=== PATIENT | female | born 1935 | race American Indian/Alaskan Native ===

== ENCOUNTER 2021-01-24 17:33 | Inpatient (IN) ==
--- NOTE | 2021-01-24 18:29 | Emergency Department Note ---
History of Present Illness General Chief complaint: Weakness Stated complaint: ILLNESS, WEAKNESS, HYPOTENSION Time Seen by Provider: 01/24/21 17:57 Source: patient Mode of arrival: EMS Limitations: no limitations History of Present Illness Provider complaint: weakness Onset (ago): day(s) 2 Treatments prior to arrival: none This is an 86-year-old female who presents with family bedside due to concern for increased weakness and poor p.o. intake. She states she began feeling bad yesterday. Daughter states she did come down to the patient's residence and the patient was able to eat and drink some and take her usual medications. She states today she felt worse and contacted her daughter. Daughter states by the time she came to the residence, her mother. Worse than typical. She states she does have intermittent days of weakness. 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 She denies any known sick contacts. She and daughter deny any fevers or chills. She denies any chest pain, cough, trouble breathing, abdominal pain, vomiting or diarrhea. Patient states she has been nauseated and that has contributed to her poor p.o. intake. Patient was given 500 mL of IV fluids by EMS in route. Pt seen during a time of high acuity and national emergency pandemic while wearing PPE. Home Medications Medication Instructions Recorded Confirmed Type dorzolamide 2 %-timolol 0.5 % (PF) 1 drp OPHTHALMIC (EYE) QAM 05/24/19 01/24/21 History eye drops doxepin 10 mg capsule 20 - 30 mg PO HS 05/24/19 01/24/21 History levothyroxine 75 mcg tablet 75 mcg PO DAILYBB 05/24/19 01/24/21 History mycophenolate mofetil 500 mg tablet 500 mg PO BID 10/29/20 01/24/21 History omeprazole 20 mg capsule,delayed 20 mg PO DAILYBB 10/29/20 01/24/21 History release prednisone 10 mg tablet 10 mg PO QDB 01/24/21 01/24/21 History Allergies Allergy/AdvReac Type Severity Reaction Status Date / Time naproxen Allergy Mild RASH Verified 01/24/21 18:21 niacin Allergy Mild RASH Verified 01/24/21 18:21 Past Med/Surg History Medical History Cancer OVARIAN 10 YRS AGO-s/p CHEMO Cardiac murmur HX IN HER 20'S Essential thrombocythemia Glaucoma Hiatal hernia Hyperlipidemia Diet controlled Hyperparathyroidism 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 Zhou in [place] (oncologist) Surgical History History of bowel resection FOR PERFORATION WITH COLOSTOMY History of cholecystectomy History of colonoscopy History of colostomy reversal History of hysterectomy TOTAL History of lithotripsy Hx of bilateral cataract extraction Hx of cystoscopy Previous back surgery LOWER BACK-NO METAL IMPLANTED S/P debridement OF STOMA SITE S/P thyroidectomy FOR GOITER Family History Father CHF (congestive heart failure) Mother Hypertension Social History Smoking Status: Never smoker Second Hand Exposure: Yes (PARENTS AND SMOKES); Hx Alcohol Use: No Hx Substance Use: No Preferred Language: Kazakh Communication Ability: Effective Commissary Officer Required: No Beliefs That Will Affect Care: None Current Living Situation: Alone Current Living Situation Comment: LIVES WITH DAUGHTER How many Children do You have: 2 Other Information That Helps Us Care for You: No Feels Safe at Home: Yes Safety Concerns: Feels Safe At This Time Assistive Devices: None Review of Systems A total of 10 systems reviewed and were otherwise negative All systems reviewed & are unremarkable except as noted in HPI & below Physical Exam Vital Signs Vital Signs - 24 hr 01/24/21 18:06 01/24/21 18:08 01/24/21 18:30 Temperature 38.2 C H Temperature Source Oral Pulse Rate 101 H 98 H 99 H Pulse Rate from SpO2 Sensor 99 H 99 H Respiratory Rate 30 H 28 H 30 H Respiratory Effort / Characteristics Non-Labored Spontaneous Blood Pressure 96/37 L 96/37 L 89/40 L Blood Pressure Mean 56 56 56 Pulse Oximetry 93 92 91 Oxygen Delivery Method Room Air Sepsis Recent Fever Within 48 Hours Yes Sepsis New/Unexplained Change in Mental Status No Sepsis Action Taken by Nursing Physician Notified 01/24/21 18:31 01/24/21 19:00 01/24/21 19:30 Temperature Temperature Source Pulse Rate 94 H 93 H Pulse Rate from SpO2 Sensor 94 H 93 H Respiratory Rate 28 H 26 H Respiratory Effort / Characteristics Blood Pressure 98/42 L 96/40 L Blood Pressure Mean 60 58 Pulse Oximetry 94 95 94 Oxygen Delivery Method Room Air Sepsis Recent Fever Within 48 Hours Sepsis New/Unexplained Change in Mental Status Sepsis Action Taken by Nursing 01/24/21 20:00 01/24/21 20:30 01/24/21 21:00 Temperature Temperature Source Pulse Rate 95 H 95 H 94 H Pulse Rate from SpO2 Sensor 96 H 95 H 94 H Respiratory Rate 24 29 H 26 H Respiratory Effort / Characteristics Blood Pressure 106/51 L 102/45 L 93/43 L Blood Pressure Mean 69 64 59 Pulse Oximetry 92 96 94 Oxygen Delivery Method Sepsis Recent Fever Within 48 Hours Sepsis New/Unexplained Change in Mental Status Sepsis Action Taken by Nursing 01/24/21 21:30 01/24/21 21:59 Temperature 37.2 C Temperature Source Oral Pulse Rate 93 H Pulse Rate from SpO2 Sensor 93 H Respiratory Rate 29 H Respiratory Effort / Characteristics Blood Pressure 100/43 L Blood Pressure Mean 62 Pulse Oximetry 93 Oxygen Delivery Method Sepsis Recent Fever Within 48 Hours Sepsis New/Unexplained Change in Mental Status Sepsis Action Taken by Nursing GENERAL: alert, ill appearing, cachectic, no distress, non-toxic EYE EXAM: normal conjunctiva, PERRL and EOM's grossly intact OROPHARYNX: no exudate, no erythema, lips, buccal mucosa, and tongue normal and mucous membranes are moist NECK: supple, no nuchal rigidity, no adenopathy, non-tender, well-healed horizontal incision on the inferior anterior neck consistent with prior thyroid surgery LUNGS: Clear to auscultation. Normal chest wall mechanics, no w/r/r HEART: no murmurs, S1 normal and S2 normal ABDOMEN: abdomen soft, non-tender, normo-active bowel sounds, no masses, no rebound or guarding. BACK: Back is symmetrical on inspection and there is no deformity, no midline tenderness, no CVA tenderness. SKIN: no rashes and no bruising UPPER EXTREMITIES: upper extremities are grossly normal. FROM, nml pulses b/l. LOWER EXTREMITIES: No pitting edema. FROM, nml pulses b/l. NEURO EXAM: Normal sensorium, cranial nerves II-XII grossly intact, normal speech, no gross weakness of arms, no gross weakness of legs. Gross sensation intact. Course Course 1834: BP steady, still slightly low. 190: BP improved. Pt states feeling improved. 2035: Patient states feeling improved. Antibiotics infusing. No new complaints. Updated on chest x-ray. 2144: Patient and family updated at bedside. Blood pressure improved and appears stable, heart rate in the 90s. Patient denies any chest pain, abdominal pain, or difficulty breathing. I discussed results with patient and family. Due to no obvious etiology of sepsis at this time and significant prior surgical history, will image the abdomen in addition. 2209: Patient's overall volume status does appear improved, heart rate and blood pressure improved, mucous membranes now moist. Patient has received 30 mL/KG of IV fluids. Administered Medications Dorzolamide HCl (Dorzolamide Hcl 2% Oph Soln 10 Ml Btl) 1 drops OP QAM [facility] Stop: 02/24/21 08:59 Last Admin: 01/25/21 08:50 Dose: 1 drops Documented by: [id number] Cosigned by: [id number] Piperacillin Sod/Tazobactam (Sod 3.375 gm/ Dextrose) 115 mls @ 28.75 mls/hr IV Q8 [facility]; Protocol Stop: 02/08/21 13:59 Last Admin: 01/25/21 22:06 Dose: 28.8 mls/hr Documented by: [id number] Infusion: 01/25/21 17:43 Dose: 0 mls/hr Documented by: [id number] Admin: 01/25/21 13:39 Dose: 28.8 mls/hr Documented by: [id number] Hydrocortisone Sodium (Succinate 50 mg/ Syringe) 1 mls @ 4 mls/min IV Q6H [facility] Stop: 02/24/21 07:59 Last Admin: 01/25/21 20:15 Dose: 4 mls/min Documented by: [id number] Admin: 01/25/21 13:39 Dose: 4 mls/min Documented by: [id number] Admin: 01/25/21 08:54 Dose: 4 mls/min Documented by: [id number] Cosigned by: [id number] Levothyroxine Sodium (Levothyroxine Sodium 75 Mcg Tablet) 75 mcg PO DAILYBB [facility] Stop: 02/24/21 06:29 Last Admin: 01/25/21 06:29 Dose: 75 mcg Documented by: [id number] Mycophenolate Mofetil (Mycophenolate Mofetil 250 Mg Cap) 500 mg PO BID [facility] Stop: 02/24/21 08:59 Last Admin: 01/25/21 20:15 Dose: 500 mg Documented by: [id number] Admin: 01/25/21 08:49 Dose: 500 mg Documented by: [id number] Cosigned by: [id number] Pantoprazole Sodium (Pantoprazole 40 Mg Tab) 40 mg PO HS [facility]; Protocol Stop: 02/24/21 06:29 Last Admin: 01/25/21 20:15 Dose: 40 mg Documented by: [id number] Prednisone (Prednisone 10 Mg Tablet) 10 mg PO QDB [facility] Stop: 02/24/21 07:29 Last Admin: 01/25/21 08:15 Dose: Not Given Documented by: [id number] Timolol Maleate (Timolol Maleate 0.5% Op Soln 5 Ml Btl) 1 drops OP QAM [facility] Stop: 02/24/21 08:59 Last Admin: 01/25/21 08:50 Dose: 1 drops Documented by: [id number] Cosigned by: [id number] Discontinued Medications Aspirin (Aspirin 81 Mg Ectab) 81 mg PO DAILY [facility] Stop: 02/24/21 08:59 Last Admin: 01/25/21 08:46 Dose: 81 mg Documented by: [id number] Cosigned by: [id number] Lactated Ringer's (Lr) 1,000 mls @ 999 mls/hr IV .Q1H1M [facility] Stop: 01/24/21 19:30 Last Infusion: 01/24/21 19:36 Dose: 0 mls/hr Documented by: [id number] Admin: 01/24/21 18:41 Dose: 999 mls/hr Documented by: [id number] Vancomycin HCl 1,000 mg/ (Sodium Chloride) 520 mls @ 200 mls/hr IV NOW ONE Stop: 01/24/21 21:37 Last Infusion: 01/25/21 02:29 Dose: 0 mls/hr Documented by: [id number] Admin: 01/24/21 20:47 Dose: 200 mls/hr Documented by: [id number] Cefepime HCl (Maxipime) 2,000 mg in 20 mls @ 5 mls/min IV NOW STA; Protocol Stop: 01/24/21 19:05 Last Admin: 01/24/21 20:47 Dose: 5 mls/min Documented by: [id number] Acetaminophen (Ofirmev) 1,000 mg in 100 mls @ 400 mls/hr IV NOW STA Stop: 01/24/21 19:16 Last Infusion: 01/24/21 21:05 Dose: 0 mls/hr Documented by: [id number] Admin: 01/24/21 20:47 Dose: 400 mls/hr Documented by: [id number] Lactated Ringer's (Lr) 1,000 mls @ 999 mls/hr IV .Q1H1M ONE Stop: 01/24/21 20:26 Last Infusion: 01/24/21 20:47 Dose: 0 mls/hr Documented by: [id number] Admin: 01/24/21 19:36 Dose: 999 mls/hr Documented by: [id number] Lactated Ringer's (Lr) 1,000 mls @ 125 mls/hr IV .Q8H [facility] Stop: 01/25/21 05:27 Last Infusion: 01/25/21 02:51 Dose: 0 mls/hr Documented by: [id number] Admin: 01/24/21 22:47 Dose: 125 mls/hr Documented by: [id number] Dexamethasone 6 mg/ Syringe 1.5 mls @ 1 mls/min IV NOW STA Stop: 01/24/21 23:45 Last Admin: 01/24/21 23:55 Dose: 1 mls/min Documented by: [id number] Sodium Chloride (Nss 1000ml) 1,000 mls @ 75 mls/hr IV .[id number] ONE Stop: 01/25/21 15:41 Last Infusion: 01/25/21 16:03 Dose: 0 mls/hr Documented by: [id number] Admin: 01/25/21 02:35 Dose: 75 mls/hr Documented by: [id number] Piperacillin Sod/Tazobactam (Sod 3.375 gm/ Dextrose) 115 mls @ 230 mls/hr IV NOW ONE; Protocol Stop: 01/25/21 08:29 Last Infusion: 01/25/21 09:40 Dose: 0 mls/hr Documented by: [id number] Admin: 01/25/21 08:51 Dose: 230 mls/hr Documented by: [id number] Cosigned by: [id number] Ioversol (Optiray 320 100ml) 94 ml IV ONCE ONE Stop: 01/24/21 22:29 Last Admin: 01/24/21 22:28 Dose: 1 ml Documented by: [id number] Miscellaneous (Patient's Height And/Or Weight Needed) 1 ea N/A Q2H [facility] Stop: 02/24/21 02:44 Last Admin: 01/25/21 02:50 Dose: 1 ea Documented by: [id number] Pantoprazole Sodium (Pantoprazole 40 Mg Tab) 40 mg PO DAILYBB [facility]; Protocol Stop: 02/24/21 06:29 Last Admin: 01/25/21 09:36 Dose: Not Given Documented by: [id number] Critical Care Time Critical Care Time: Yes Total Critical Care Time: 42 Critical care of 42 min performed to assess and manage high likelihood of life- threatening sepsis, involving labs and imaging performed with assessment to evaluate sepsis diagnosis with frequent reassessment. This time includes bedside time, treatment discussions with patient/family/consultants, docum entation time and excludes procedure time. Medical Decision Making Differential Diagnosis Differential Diagnosis includes but is not limited to dehydration, stroke, anemia, hypoglycemia, hyponatremia, hypernatremia, urinary tract infection, pneumonia, bronchitis, sepsis, gastroenteritis, additional abdominal pathology, metabolic abnormalities and infections. Medical Records Attestation: I reviewed the patient's medical records. Home Medications Current Medication List: was personally reviewed by me Laboratory Data Attestation: I reviewed the patient's lab results. Result diagrams: 01/25/21 06:41 01/25/21 06:41 Lab Results 01/24/21 01/24/21 01/24/21 Range/Units 17:52 17:52 17:52 WBC 34.14 H* (4.8-10.8) K/uL RBC 3.61 L (4.2-5.4) M/uL Hgb 11.4 L (12.0-16.0) g/dL Hct 36.3 L (37-47) % MCV 100.6 H (80-100) fL MCH 31.6 (25-34) pg MCHC 31.4 L (32-36) g/dL RDW Std Deviation 84.7 H (36.4-46.3) fL RDW Coeff of Yee 23.0 H (11.5-14.5) % Plt Count 118 L (130-400) K/uL Absolute Nucleated RBC 0.59 H (0-0) K/uL Nucleated RBC % (auto) 1.7 % Neutrophils % (Manual) 80.6 % Lymphocytes % (Manual) 5.9 % Monocytes % (Manual) 10.1 % Metamyelocytes % (Man) 3.4 % Neutrophils # (Manual) 27.52 H (1.4-6.5) K/uL Total Absolute Neuts 27.52 H (1.4-6.5) K/uL Lymphocytes # (Manual) 2.01 (1.2-3.4) K/uL Total Abs Lymphocytes 2.01 (1.2-3.4) K/uL Monocytes # (Manual) 3.45 H (0.11-0.59) K/uL Metamyelocytes # (Man) 1.16 H (0-0) K/uL Platelet Estimate Decreased L (Normal) Polychromasia 1+ Hypochromasia Present Anisocytosis Present Sodium 132 L (136-145) mmol/L Potassium 4.4 (3.5-5.1) mmol/L Chloride 96 L (98-107) mmol/L Carbon Dioxide 26 (21-32) mmol/L Anion Gap 9.0 (3-11) BUN 19 H (7-18) mg/dl Creatinine 1.13 (0.6-1.2) mg/dl Est Cr Clr Drug Dosing Not Reportable Est GFR ( Amer) 51.0 ml/min Est GFR (Non-Af Amer) 44.0 ml/min BUN/Creatinine Ratio 16.4 (10-20) Glucose 76 (70-99) mg/dl Lactate (0.4-2.0) mmol/L Calcium 9.4 (8.5-10.1) mg/dl Magnesium 1.8 (1.8-2.4) mg/dl Total Bilirubin 1.1 H (0.2-1) mg/dl AST 22 (15-37) U/L ALT 15 (12-78) U/L Alkaline Phosphatase 90 (45-117) U/L Troponin I 0.090 H* (0-0.045) ng/ml Total Protein 6.0 L (6.4-8.2) gm/dl Albumin 2.5 L (3.4-5.0) gm/dl Globulin 3.5 (2.5-4.0) gm/dl Albumin/Globulin Ratio 0.7 L (0.9-2) Procalcitonin 33.39 H (0-0.5) ng/ml Urine Color Urine Appearance (Clear) Urine pH (4.5-7.5) Ur Specific [place] (1.000-1.030) Urine Protein (Negative) Urine Glucose (UA) (Negative) Urine Ketones (Negative) Urine Blood (Negative) Urine Nitrite (Negative) Urine Bilirubin (Negative) Urine Urobilinogen (Negative) Ur Leukocyte Esterase (Negative) Urine WBC (Auto) (0-5) /hpf Urine RBC (Auto) (0-4) /hpf U Hyaline Cast (Auto) (0-5) /lpf U Epithel Cells (Auto) (0-5) /lpf Urine Bacteria (Auto) (Negative) Ur Renal Epithelial Cell 01/24/21 01/24/21 01/24/21 Range/Units 18:36 20:32 22:40 WBC (4.8-10.8) K/uL RBC (4.2-5.4) M/uL Hgb (12.0-16.0) g/dL Hct (37-47) % MCV (80-100) fL MCH (25-34) pg MCHC (32-36) g/dL RDW Std Deviation (36.4-46.3) fL RDW Coeff of Yee (11.5-14.5) % Plt Count (130-400) K/uL Absolute Nucleated RBC (0-0) K/uL Nucleated RBC % (auto) % Neutrophils % (Manual) % Lymphocytes % (Manual) % Monocytes % (Manual) % Metamyelocytes % (Man) % Neutrophils # (Manual) (1.4-6.5) K/uL Total Absolute Neuts (1.4-6.5) K/uL Lymphocytes # (Manual) (1.2-3.4) K/uL Total Abs Lymphocytes (1.2-3.4) K/uL Monocytes # (Manual) (0.11-0.59) K/uL Metamyelocytes # (Man) (0-0) K/uL Platelet Estimate (Normal) Polychromasia Hypochromasia Anisocytosis Sodium (136-145) mmol/L Potassium (3.5-5.1) mmol/L Chloride (98-107) mmol/L Carbon Dioxide (21-32) mmol/L Anion Gap (3-11) BUN (7-18) mg/dl Creatinine (0.6-1.2) mg/dl Est Cr Clr Drug Dosing Est GFR ( Amer) ml/min Est GFR (Non-Af Amer) ml/min BUN/Creatinine Ratio (10-20) Glucose (70-99) mg/dl Lactate 1.9 (0.4-2.0) mmol/L Calcium (8.5-10.1) mg/dl Magnesium (1.8-2.4) mg/dl Total Bilirubin (0.2-1) mg/dl AST (15-37) U/L ALT (12-78) U/L Alkaline Phosphatase (45-117) U/L Troponin I 0.300 H* (0-0.045) ng/ml Total Protein (6.4-8.2) gm/dl Albumin (3.4-5.0) gm/dl Globulin (2.5-4.0) gm/dl Albumin/Globulin Ratio (0.9-2) Procalcitonin (0-0.5) ng/ml Urine Color Dark Yellow Urine Appearance Clear (Clear) Urine pH 7.0 (4.5-7.5) Ur Specific [place] 1.013 (1.000-1.030) Urine Protein Negative (Negative) Urine Glucose (UA) Negative (Negative) Urine Ketones Negative (Negative) Urine Blood Negative (Negative) Urine Nitrite Negative (Negative) Urine Bilirubin Negative (Negative) Urine Urobilinogen Negative (Negative) Ur Leukocyte Esterase Trace H (Negative) Urine WBC (Auto) 1-5 (0-5) /hpf Urine RBC (Auto) 0-4 (0-4) /hpf U Hyaline Cast (Auto) 1-5 (0-5) /lpf U Epithel Cells (Auto) >30 H (0-5) /lpf Urine Bacteria (Auto) Negative (Negative) Ur Renal Epithelial Cell Not Reportable Imaging Data Radiologist's Impression: Chest X-Ray 01/24/21 18:26 XR chest 1V portable HISTORY: SEPSIS COMPARISON: Chest 10/29/2020. FINDINGS: No pneumothorax. No pleural effusions. No new focal lung conso lidations to suggest pneumonia. No evidence for pulmonary edema. The heart is normal in size. Calcifications within the aortic knob are again noted. IMPRESSION: No significant change compared to the prior study. No acute process. ACT 112: Negative or not required by law. Electronically signed by: Te Ham M.D. 01/24/2021 7:[address] abdomen pelvis with contrast: Moderate hiatal hernia. Reflux of gastric contents into the esophagus. No inflammatory changes along the GI tract. Moderate stool. Sigmoid diverticulosis. Spleen significantly larger measuring 20 cm. Cholecystectomy and hysterectomy. Remainder of the organs are unremarkable. Radiologist: Landry Chung MD ECG Data Attestation: I personally reviewed and interpreted this ECG as follows: Indication: + weakness Rate (beats per minute): 100 Rhythm: + normal sinus ECG Intervals/blocks: + Normal QRS and + Normal QT ECG [place]: + Left axis deviation ECG ST segments: + Normal ST segments ECG Findings: + PVCs MDM Narrative This is an 86-year-old female presents emergency department with daughter at bedside due to concern for generalized weakness and poor p.o. intake. Patient initially found to be febrile, hypotensive, and tachypneic. A sepsis evaluation was started and patient started on IV fluids. Given patient's small body habitus, patient did not require much fluids to meet the 30 mL/KG sepsis requirements and did feel improved after the first liter. Patient's blood pressure stabilized in the upper 90s and low 100s and she was continued on maintenance IV fluids. Patient had no vomiting or diarrhea here. Chest x-ray unremarkable, urine without obvious infection. Due to patient's prior surgical history she was then sent for CT imaging of the abdomen and pelvis to again evaluate for the source of infection however that this did not reveal any obvi ous source based on the overnight radiology read. Patient with significant leukocytosis despite history of malignancy. Elevated procalcitonin noted, although lactic acid normal. Patient kept updated on results. Blood cultures were sent, broad-spectrum antibiotics started. Patient and family made aware of all results and recommendation for additional inpatient treatment. They verbalized understanding and were agreeable with plan. An order was placed for continuous cardiac monitoring. The monitor shows a rate of _80_ with _normal sinus__ rhythm. Impression & Plan Sepsis, Dehydration, Weakness Discharge Plan Visit Data Chief Complaint: Weakness Stated Complaint: ILLNESS, WEAKNESS, HYPOTENSION ED Provider: Chery Villafana Discharge Problem: Sepsis, Dehydration, Weakness Patient Disposition: Admitted As Inpatient Discharge Instructions Interventions: ED Discharge Assessment Last Done: 01/25/21 02:30 Discharge Problem: Sepsis Qualifiers: Sepsis type: sepsis due to unspecified organism Sepsis acute organ dysfunction status: with acute organ dysfunction Severe sepsis acute organ dysfunction type: acute renal failure Acute renal failure type: unspecified Severe sepsis shock status: without septic shock Qualified Code(s): A41.9 - Sepsis, unspecified organism
[2021-01-24] MEDS ORDERED: LACTATED RINGER'S 1,000 ML IV SCH (18:30)
[2021-01-24 18:43] LABS: Alanine Aminotransferase 15 U/L (12-78); Albumin Level 2.5 gm/dl (3.4-5.0); Aspartate Aminotransferase 22 U/L (15-37); BUN Creatinine Ratio 16.4 (10-20); Blood Urea Nitrogen 19 mg/dl (7-18); Calcium 9.4 mg/dl (8.5-10.1); Carbon Dioxide 26 mmol/L (21-32); Chloride 96 mmol/L (98-107); Glucose 76 mg/dl (70-99); Magnesium 1.8 mg/dl (1.8-2.4); Potassium 4.4 mmol/L (3.5-5.1); Sodium 132 mmol/L (136-145)
[2021-01-24 19:00] LABS: Hematocrit (blood only) 36.3 % (37-47); Hemoglobin 11.4 g/dL (12.0-16.0); Mean Corpuscular Hemoglobin 31.6 pg (25-34); Mean Corpuscular Hgb Conc 31.4 g/dL (32-36); Mean Corpuscular Volume 100.6 fL (80-100); Nucleated RBC # (auto) 0.59 K/uL (0-0); Nucleated RBC % (auto) 1.7 %; Platelet Count 118 K/uL (130-400); RDW Standard Deviation 84.7 fL (36.4-46.3); Red Blood Count 3.61 M/uL (4.2-5.4); White Blood Count 34.14 K/uL (4.8-10.8)
[2021-01-24] MEDS ORDERED: VANCOMYCIN CONSULT ACTIVE PRN (19:02)
[2021-01-24] MEDS ORDERED: CEFEPIME 2,000 MG/20 ML VIAL IV STA (19:02)
[2021-01-24] MEDS ORDERED: VANCOMYCIN HCL 1,000 MG in SODIUM CHLORIDE 0.9% 500 ML IV ONE (19:02)
[2021-01-24] MEDS ORDERED: ACETAMINOPHEN 1,000 MG/100 ML VIAL IV STA (19:02)
[2021-01-24 19:07] LABS: ALC (manual) 2.01 K/uL (1.2-3.4); ANC (manual) 27.52 K/uL (1.4-6.5); Anisocytosis Present; Hypochromasia Present; Lymphocytes # (manual) 2.01 K/uL (1.2-3.4); Lymphocytes % (manual) 5.9 %; Metamyelocytes # (manual) 1.16 K/uL (0-0); Metamyelocytes % (manual) 3.4 %; Monocytes # (manual) 3.45 K/uL (0.11-0.59); Monocytes % (manual) 10.1 %; Neutrophils # (manual) 27.52 K/uL (1.4-6.5); Neutrophils % (manual) 80.6 %; Platelet Estimate Decreased (Normal); Polychromasia 1+
[2021-01-24 19:15] LABS: Albumin Globulin Ratio 0.7 (0.9-2); Alkaline Phosphatase 90 U/L (45-117); Bilirubin,Total 1.1 mg/dl (0.2-1); Globulin 3.5 gm/dl (2.5-4.0)
[2021-01-24] MEDS ORDERED: LACTATED RINGER'S 1,000 ML IV ONE (19:26)
--- NOTE | 2021-01-24 19:51 | XRay Report ---
XR chest 1V portable HISTORY: SEPSIS COMPARISON: Chest 10/29/2020. FINDINGS: No pneumothorax. No pleural effusions. No new focal lung consolidations to suggest pneumoni a. No evidence for pulmonary edema. The heart is normal in size. Calcifications within the aortic kno b are again noted. IMPRESSION: No significant change compared to the prior study. No acute process. ACT 112: Negative or not required by law. Electronically signed by: Te Ham M.D. 01/24/2021 7:50 PM
[2021-01-24 20:46] LABS: Appearance Urine Clear (Clear); Bacteria Urine Automated Negative (Negative); Bilirubin Urine Negative (Negative); Blood Urine Negative (Negative); Color Urine Dark Yellow; Epithelial Cell Urine Auto >30 /lpf (0-5); Glucose Urine UA Negative (Negative); Ketones Urine Negative (Negative); Leukocyte Esterase Urine Trace (Negative); Nitrite Urine Negative (Negative); Protein Urine Negative (Negative); RBC Urine Automated 0-4 /hpf (0-4); Specific Gravity Urine 1.013 (1.000-1.030); Urobilinogen Urine Negative (Negative)
[2021-01-24] MEDS ORDERED: LACTATED RINGER'S 1,000 ML IV STA (21:28)
[2021-01-24] MEDS ORDERED: OPTIRAY 320 100ml IV ONE (22:28)
--- NOTE | 2021-01-24 23:25 | History & Physical Report ---
Date of Service January 24, 2021 Assessment & Plan (1) Sepsis: Plan: Immunocompromised patient (hx chronic steroid Rx for pemphigoid) Secondary to complicated UTI Hypotension secondary to illness Possible adrenal insufficiency given corticosteroid Rx hx ovarian cancer status post surgery/chemotherapy myeloproliferative neoplasm/chronic thrombocytopenia, patient aspirin and Hydrea on hold due to stomach upset and aphthous ulcerations as per outpatient [facility] Oncology note primary hyperparathyroidism, patient follows with [facility] postsurgical hypothyroidism, outpatient TSH slightly elevated at 4.8 last September 2020 past tobacco abuse Medical telemetry CS, Cefepime Decadron 1 dose now for possible adrenal insufficiency Recheck TSH PT OT eval DVT prophylaxis. SCDs Re: Thrombocytopenia Full code Patient's daughter requesting updates from providers. Suzy Eve, contact #[phone]. Text document was generated using Acsendo voice recognition software. It may contain grammatical or spelling errors. Kindly contact undersigned for clarification of any documentation item in question. History of Present Illness Chief Complaint: Weakness, fever, chills Primary Care Provider: Ivy Meier MD History obtained from patient and records. 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 Few days history of increasing weakness, nausea, poor p.o. intake. Left-sided achy abdominal pain. Patient denies chest pain, cough, S OB. SBP noted to be low at home. 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 Allergies Allergy/AdvReac Type Severity Reaction Status Date / Time naproxen Allergy Mild RASH Verified 01/24/21 18:21 niacin Allergy Mild RASH Verified 01/24/21 18:21 Home Medications Medication Instructions Recorded Confirmed Type dorzolamide 2 %-timolol 0.5 % (PF) 1 drp OPHTHALMIC (EYE) QAM 05/24/19 01/24/21 History eye drops doxepin 10 mg capsule 20 - 30 mg PO HS 05/24/19 01/24/21 History levothyroxine 75 mcg tablet 75 mcg PO DAILYBB 05/24/19 01/24/21 History mycophenolate mofetil 500 mg tablet 500 mg PO BID 10/29/20 01/24/21 History omeprazole 20 mg capsule,delayed 20 mg PO DAILYBB 10/29/20 01/24/21 History release prednisone 10 mg tablet 10 mg PO QDB 01/24/21 01/24/21 History Past Med/Surg History Medical History Cancer OVARIAN 10 YRS AGO-s/p CHEMO Cardiac murmur HX IN HER 20'S Essential thrombocythemia Glaucoma Hiatal hernia Hyperlipidemia Diet controlled Hyperparathyroidism 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 Zhou in [place] (oncologist) Surgical History History of bowel resection FOR PERFORATION WITH COLOSTOMY History of cholecystectomy History of colonoscopy History of colostomy reversal History of hysterectomy TOTAL History of lithotripsy Hx of bilateral cataract extraction Hx of cystoscopy Previous back surgery LOWER BACK-NO METAL IMPLANTED S/P debridement OF STOMA SITE S/P thyroidectomy FOR GOITER Family History Father CHF (congestive heart failure) Mother Hypertension Social History Smoking Status: Never smoker Second Hand Exposure: Yes (PARENTS AND SMOKES); Hx Alcohol Use: No Hx Substance Use: No Preferred Language: German Communication Ability: Effective Developing Machine Tender Required: No Beliefs That Will Affect Care: None Current Living Situation: Alone Current Living Situation Comment: LIVES WITH DAUGHTER How many Children do You have: 2 Other Information That Helps Us Care for You: No Feels Safe at Home: Yes Safety Concerns: Feels Safe At This Time Assistive Devices: Walker and Wheelchair Review of Systems Review of Systems: As per HPI, all 10 systems reviewed, all other ROS negative Physical Exam Physical Exam: GENERAL: Slightly uncomfortable, wane, underweight, no respiratory distress SKIN: Pallor,, warm HEENT: Pale palpebral conjunctivae, no ptosis, dry buccal mucosa NECK : Supple, no tenderness CHEST : CTA, no tenderness HEART : RRR, no obvious murmurs ABDOMEN: no distention, minimal left side abdominal tenderness EXTREMITIES : No LE swelling/tenderness, no other conspicuous deformities noted NEUROLOGIC : Coherent, no facial asymmetry, no other gross focality Results & Data Results & Data ([facility]) Vital Signs (Past 12 Hours) Vital Signs Temp Pulse Resp BP Pulse Ox 01/24/21 21:59 37.2 C 01/24/21 21:30 93 H 29 H 100/43 L 93 01/24/21 21:00 94 H 26 H 93/43 L 94 01/24/21 20:30 95 H 29 H 102/45 L 96 01/24/21 20:00 95 H 24 106/51 L 92 01/24/21 19:30 93 H 26 H 96/40 L 94 01/24/21 19:00 94 H 28 H 98/42 L 95 01/24/21 18:31 94 01/24/21 18:30 99 H 30 H 89/40 L 91 01/24/21 18:08 38.2 C H 98 H 28 H 96/37 L 92 01/24/21 18:06 101 H 30 H 96/37 L 93 Laboratory Results Laboratory Results WBC 34.14 K/uL (4.8-10.8) H* 01/24/21 17:52 RBC 3.61 M/uL (4.2-5.4) L 01/24/21 17:52 Hgb 11.4 g/dL (12.0-16.0) L 01/24/21 17:52 Hct 36.3 % (37-47) L 01/24/21 17:52 MCV 100.6 fL (80-100) H 01/24/21 17:52 MCH 31.6 pg (25-34) 01/24/21 17:52 MCHC 31.4 g/dL (32-36) L 01/24/21 17:52 RDW Std Deviation 84.7 fL (36.4-46.3) H 01/24/21 17:52 RDW Coeff of Yee 23.0 % (11.5-14.5) H 01/24/21 17:52 Plt Count 118 K/uL (130-400) L 01/24/21 17:52 Absolute Nucleated RBC 0.59 K/uL (0-0) H 01/24/21 17:52 Nucleated RBC % (auto) 1.7 % 01/24/21 17:52 Neutrophils % (Manual) 80.6 % 01/24/21 17:52 Lymphocytes % (Manual) 5.9 % 01/24/21 17:52 Monocytes % (Manual) 10.1 % 01/24/21 17:52 Metamyelocytes % (Man) 3.4 % 01/24/21 17:52 Neutrophils # (Manual) 27.52 K/uL (1.4-6.5) H 01/24/21 17:52 Total Absolute Neuts 27.52 K/uL (1.4-6.5) H 01/24/21 17:52 Lymphocytes # (Manual) 2.01 K/uL (1.2-3.4) 01/24/21 17:52 Total Abs Lymphocytes 2.01 K/uL (1.2-3.4) 01/24/21 17:52 Monocytes # (Manual) 3.45 K/uL (0.11-0.59) H 01/24/21 17:52 Metamyelocytes # (Man) 1.16 K/uL (0-0) H 01/24/21 17:52 Platelet Estimate Decreased (Normal) L 01/24/21 17:52 Polychromasia 1+ 01/24/21 17:52 Hypochromasia Present 01/24/21 17:52 Anisocytosis Present 01/24/21 17:52 Sodium 132 mmol/L (136-145) L 01/24/21 17:52 Potassium 4.4 mmol/L (3.5-5.1) 01/24/21 17:52 Chloride 96 mmol/L (98-107) L 01/24/21 17:52 Carbon Dioxide 26 mmol/L (21-32) 01/24/21 17:52 Anion Gap 9.0 (3-11) 01/24/21 17:52 BUN 19 mg/dl (7-18) H 01/24/21 17:52 Creatinine 1.13 mg/dl (0.6-1.2) 01/24/21 17:52 Est Cr Clr Drug Dosing Not Reportable 01/24/21 17:52 Est GFR ( Amer) 51.0 ml/min 01/24/21 17:52 Est GFR (Non-Af Amer) 44.0 ml/min 01/24/21 17:52 BUN/Creatinine Ratio 16.4 (10-20) 01/24/21 17:52 Glucose 76 mg/dl (70-99) 01/24/21 17:52 Lactate 1.9 mmol/L (0.4-2.0) 01/24/21 18:36 Calcium 9.4 mg/dl (8.5-10.1) 01/24/21 17:52 Magnesium 1.8 mg/dl (1.8-2.4) 01/24/21 17:52 Total Bilirubin 1.1 mg/dl (0.2-1) H 01/24/21 17:52 AST 22 U/L (15-37) 01/24/21 17:52 ALT 15 U/L (12-78) 01/24/21 17:52 Alkaline Phosphatase 90 U/L (45-117) 01/24/21 17:52 Troponin I 0.090 ng/ml (0-0.045) H* 01/24/21 17:52 Total Protein 6.0 gm/dl (6.4-8.2) L 01/24/21 17:52 Albumin 2.5 gm/dl (3.4-5.0) L 01/24/21 17:52 Globulin 3.5 gm/dl (2.5-4.0) 01/24/21 17:52 Albumin/Globulin Ratio 0.7 (0.9-2) L 01/24/21 17:52 Procalcitonin 33.39 ng/ml (0-0.5) H 01/24/21 17:52 Urine Color Dark Yellow 01/24/21 20:32 Urine Appearance Clear (Clear) 01/24/21 20:32 Urine pH 7.0 (4.5-7.5) 01/24/21 20:32 Ur Specific Witter 1.013 (1.000-1.030) 01/24/21 20:32 Urine Protein Negative (Negative) 01/24/21 20:32 Urine Glucose (UA) Negative (Negative) 01/24/21 20:32 Urine Ketones Negative (Negative) 01/24/21 20:32 Urine Blood Negative (Negative) 01/24/21 20: Urine Nitrite Negative (Negative) 01/24/21 20:32 Urine Bilirubin Negative (Negative) 01/24/21 20:32 Urine Urobilinogen Negative (Negative) 01/24/21 20:32 Ur Leukocyte Esterase Trace (Negative) H 01/24/21 20:32 Urine WBC (Auto) 1-5 /hpf (0-5) 01/24/21 20:32 Urine RBC (Auto) 0-4 /hpf (0-4) 01/24/21 20:32 U Hyaline Cast (Auto) 1-5 /lpf (0-5) 01/24/21 20:32 U Epithel Cells (Auto) >30 /lpf (0-5) H 01/24/21 20:32 Urine Bacteria (Auto) Negative (Negative) 01/24/21 20:32 Ur Renal Epithelial Cell Not Reportable 01/24/21 20:32 COVID-19 Eval Order Covid19 at [facility] 01/24/21 Unknown SARS-CoV-2 (PCR) NEGATIVE (Negative) 01/24/21 Unknown Impressions Chest X-Ray 01/24/21 18:26 XR chest 1V portable HISTORY: SEPSIS COMPARISON: Chest 10/29/2020. FINDINGS: No pneumothorax. No pleural effusions. No new focal lung consolidations to suggest pneumonia. No evidence for pulmonary edema. The heart is normal in size. Calcifications within the aortic knob are again noted. IMPRESSION: No significant change compared to the prior study. No acute process. ACT 112: Negative or not required by law. Electronically signed by: Te Ham M.D. 01/24/2021 7:[address] abdomen pelvis initial read: Moderate hiatal hernia. Reflux of gastric contents into the esophagus. No inflammatorychanges along the GI tract. Moderate stool. Sigmoid diverticulosis. Spleen significantlyenlarged measuring 20 cm. Cholecystectomyand hysterectomy. Remainder of the organs are unremarkable. EKG as per my interpretation : Rate 100, NSR, LAD, LAFB, PVCs
[2021-01-24] MEDS ORDERED: dexAMETHasone 6 MG in SYRINGE 0 ML IV STA (23:44)
[2021-01-25] MEDS ORDERED: oxyCODONE HCL IR 5 MG TAB (IMMEDIATE RELEASE) PO PRN (02:22)
[2021-01-25] MEDS ORDERED: PROMETHAZINE HCL 6.25 MG in SODIUM CHLORIDE 0.9% 50 ML IV PRN (02:22)
[2021-01-25] MEDS ORDERED: SODIUM CHLORIDE 0.9% 1000ML 1,000 ML IV ONE (02:22)
[2021-01-25] MEDS ORDERED: CEFEPIME CONSULT ACTIVE PRN (02:22)
[2021-01-25] MEDS ORDERED: PATIENT'S HEIGHT AND/OR WEIGHT NEEDED SCH (02:45)
[2021-01-25] MEDS: LEVOTHYROXINE SODIUM 75 MCG TABLET PO SCH (06:29)
[2021-01-25] MEDS ORDERED: PANTOprazole 40 MG TAB PO SCH (06:30)
[2021-01-25] MEDS ORDERED: Nursing to Pharmacy Communication SCH (06:30)
[2021-01-25 07:04] LABS: Mean Corpuscular Hgb Conc 30.8 g/dL (32-36); Nucleated RBC # (auto) 0.11 K/uL (0-0); Nucleated RBC % (auto) 0.5 %
[2021-01-25] MEDS ORDERED: predniSONE 10 MG TABLET PO SCH (07:30)
[2021-01-25 07:34] LABS: BUN Creatinine Ratio 20.7 (10-20); Calcium 8.8 mg/dl (8.5-10.1); Creatinine Clr Calc Pharmacy 32.1 ml/min; Est GFR (African American) 64.5 ml/min; Est GFR (Non-African American) 55.6 ml/min; Potassium 4.8 mmol/L (3.5-5.1)
[2021-01-25 07:36] LABS: Hematocrit (blood only) 33.4 % (37-47); Hemoglobin 10.3 g/dL (12.0-16.0); Mean Corpuscular Hemoglobin 31.1 pg (25-34); Mean Corpuscular Volume 100.9 fL (80-100); RDW Coefficient of Variation 22.9 % (11.5-14.5); RDW Standard Deviation 84.6 fL (36.4-46.3); Red Blood Count 3.31 M/uL (4.2-5.4)
[2021-01-25 07:42] LABS: ANC (manual) 18.86 K/uL (1.4-6.5); Anisocytosis Present; Basophils % (manual) 0.9 %; Eosinophils % (manual) 0.9 %; Lymphocytes % (manual) 0.9 %; Monocytes # (manual) 2.73 K/uL (0.11-0.59); Monocytes % (manual) 12.2 %; Myelocytes % (manual) 0.9 %; Neutrophils # (manual) 18.86 K/uL (1.4-6.5); Neutrophils % (manual) 84.2 %; Platelet Count 93 K/uL (130-400); Platelet Estimate Decreased (Normal); Polychromasia 1+; Tear Drop Cells 1+
[2021-01-25] MEDS ORDERED: PIPERACILL/TAZOBAC CONSULT ACTIVE PRN (07:51)
[2021-01-25] MEDS ORDERED: PIPERACILLIN/TAZOBACTAM 3.375 GM in DEXTROSE 5% 100 ML IV ONE (08:00)
[2021-01-25] MEDS: MYCOPHENOLATE MOFETIL 250 MG CAP PO SCH ×2 (08:49→20:15)
[2021-01-25] MEDS: DORZOLAMIDE HCL 2% OPH SOLN 10 ML BTL OP SCH (08:50)
[2021-01-25] MEDS: TIMOLOL MALEATE 0.5% OP SOLN 5 ML BTL OP SCH (08:50)
[2021-01-25] MEDS: HYDROCORTISONE SOD 50 MG in SYRINGE 0 ML IV SCH ×3 (08:54→20:15)
[2021-01-25] MEDS ORDERED: DORZOLAMIDE/TIMOLOL 22.3/6.8MG/ML 10 ML BTL OP SCH (09:00)
[2021-01-25] MEDS ORDERED: ASPIRIN 81 MG ECTAB PO SCH (09:00)
--- NOTE | 2021-01-25 09:12 | CT Scan Report ---
ABDOMEN AND PELVIS CT WITH IV CONTRAST CT DOSE: 361.83 mGy.cm HISTORY: Acute fever with weakness fever, weak, prior surgery TECHNIQUE: Multiaxial CT images of the abdomen and pelvis were performed following the IV administrat ion of 94 cc of Optiray, A dose lowering technique was utilized adhering to the principles of ALARA. COMPARISON STUDY: Chest radiograph of same day, CT abdomen and pelvis 07/15/2015 FINDINGS: Cardiomegaly with coronary artery calcifications. Trace pleural effusions with dependent bi basilar atelectasis. Mild intralobular septal thickening. The central airways are patent. No pneumato sis or pneumoperitoneum. Marked splenomegaly measures over 20 cm in length. This represents a change from the 2016 comparison. The liver is mildly enlarged. Cholecystectomy. Patency of the hepatic and portal veins. Mildly atrop hic pancreas. Intrahepatic and extrahepatic biliary ductal prominence is likely on a postsurgical bas is. Unremarkable adrenal glands. 2 nonobstructing calculi of the right kidney measure up to 4 mm. There are a few calcifications of th e left kidney measuring up to 3 mm. There are a few cysts of the kidneys measuring up to 1.3 cm on th e right and 1.5 cm on the left. No hydronephrosis. Unremarkable urinary bladder. Uterus is either atr ophic or surgically absent. Atherosclerosis of the aorta without aneurysm. No adenopathy. Unremarkabl e IVC. Moderate sized hiatal hernia with secretions noted within the distal esophagus which is mildly thicke rene. No bowel obstruction. Colonic diverticulosis with moderate fecal retention. The appendix is repo rtedly surgically absent. Scattered smaller fluid levels are likely physiologic. Mild generalized bod y wall edema. Degenerative changes of the spine, pelvis and hips. IMPRESSION: 1. No bowel obstruction or bowel wall thickening. 2. Marked enlargement of the spleen measuring over 20 cm in length is new from 2016. Hematology maria e p is recommended. 3. Colonic diverticulosis without acute diverticulitis. 4. Cholecystectomy. 5. Moderate fecal retention. 6. Cardiomegaly with mild pulmonary edema and trace pleural effusions. ACT 112: Negative or not required by law. The above report was generated using voice recognition software. It may contain grammatical, syntax o r spelling errors. Electronically signed by: Chris Vega M.D. 01/25/2021 9:11 AM
[2021-01-25 09:24] LABS: Adenovirus PCR Not Detected (NotDetected); Bordetella parapertussis PCR Not Detected (NotDetected); Bordetella pertussis PCR Not Detected (NotDetected); Chlamydia pneumoniae PCR Not Detected (NotDetected); Coronavirus 229E PCR Not Detected (NotDetected); Coronavirus CoV-2 (COVID19)PCR Not Detected (NotDetected); Coronavirus HKU1 PCR Not Detected (NotDetected); Coronavirus NL63 PCR Not Detected (NotDetected); Coronavirus OC43PCR Not Detected (NotDetected); Human Metapneumovirus PCR Not Detected (NotDetected); Influenza A PCR Not Detected (NotDetected); Influenza B PCR Not Detected (NotDetected); Mycoplasma pneumoniae PCR Not Detected (NotDetected); Parainfluenza Virus 1 PCR Not Detected (NotDetected); Parainfluenza Virus 2 PCR Not Detected (NotDetected); Parainfluenza Virus 3 PCR Not Detected (NotDetected); Parainfluenza Virus 4 PCR Not Detected (NotDetected); Respiratory Syncytial VirusPCR Not Detected (NotDetected); Rhinovirus/Enterovirus PCR Not Detected (NotDetected)
[2021-01-25] MEDS: PIPERACILLIN/TAZOBACTAM 3.375 GM in DEXTROSE 5% 100 ML IV SCH ×2 (13:39→22:06)
--- NOTE | 2021-01-25 14:23 | Electrocardiogram Report ---
Test Reason : Blood Pressure : / mmHG Vent. Rate : 100 BPM Atrial Rate : 100 BPM P-R Int : 146 ms QRS Dur : 072 ms QT Int : 342 ms P-R-T Axes : 072 -31 052 degrees QTc Int : 441 ms Sinus rhythm with occasional Premature ventricular complexes Left axis deviation Abnormal ECG When compared with ECG of 29-OCT-2020 20:48, Premature ventricular complexes are now Present Confirmed by Tod Benito ([id number]) on 01/25/2021 2:22:58 PM Referred By: REFERRED SELF Confirmed By:Jered Benito
--- NOTE | 2021-01-25 16:06 | Hospitalist Progress Note ---
Date of Service January 25, 2021 Assessment & Plan (1) Sepsis: Plan: 88-year-old female with history of primary myelofibrosis, essential thrombocytosis Hypothyroidism, severe stomatitis, on prednisone and mycophenolate Presenting with weakness. SEPSIS UNKNOWN ETIOLOGY IMMUNOCOMPROMISE STATE, ON CHRONIC PREDNISONE AND MYCOPHENOLATE Afebrile since this morning, leukocytosis improving UA: Not suggestive of UTI Urine culture: Pending Blood cultures: Pending Nasal MRSA screen: Negative Bio fire including Covid PCR: Negative CT abdomen pelvis: 1. No bowel obstruction or bowel wall thickening. 2. Marked enlargement of the spleen measuring over 20 cm in length is new from 2016. Hematology workup is recommended. 3. Colonic diverticulosis without acute diverticulitis. 4. Cholecystectomy. 5. Moderate fecal retention. 6. Cardiomegaly with mild pulmonary edema and trace pleural effusions. Source of sepsis unclear etiology at this point Continue empiric Zosyn day #[address] chest Monitor closely on telemetry HYPOTENSION LIKELY SECONDARY TO SEPSIS POSSIBLE ADRENAL INSUFFICIENCY, CHRONIC PREDNISONE USE Lowest blood pressure in the ER was 89/40 Currently in the low 100s systolic Hydrocortisone 50 mg every 6 hours started Hold prednisone PRIMARY MYELOFIBROSIS, ESSENTIAL THROMBOCYTOSIS As per admitting MD Dr. Ma: Patient aspirin and Hydrea on hold due to stomach upset and aphthous ulcerations as per outpatient [facility] Oncology note Continue mycophenolate Hold prednisone Positive splenomegaly on CAT scan, new finding in comparison to 2016 as per radiology report Peripheral smear: Consistent with primary myelofibrosis We will consult account collector HX OVARIAN CANCER STATUS POST SURGERY/CHEMOTHERAPY PRIMARY HYPERPARATHYROIDISM, patient follows with [facility] POSTSURGICAL HYPOTHYROIDISM, outpatient TSH slightly elevated at 4.8 last September 2020 DVT prophylaxis. SCDs Re: Thrombocytopenia Full code plan of care discussed with patient and her daughter Suzy over the phone in detail and at length all questions answered They are understanding, agreeable, comfortable with the plan of care Admission and Anticipated Discharge Date Admission Date: January 24, 2021 Subjective Follow-up for sepsis, etc. Seen resting in bed, comfortable, not in distress Appears somewhat weak But awake alert oriented x3 Answers all questions appropriately States she feels improved today compared to yesterday Still has some fatigue Denies headache, cough, sputum production, chest pain abdominal pain, vomiting, problems with urination or bowel movement No other symptoms Review of Systems Review of Systems: all noted and negative except for above Physical Exam Physical Exam: General- oriented x 3, not in distress, speaks in sentences with no effort or accessory muscle use Somewhat weak But awake and alert Head- atraumatic Eyes- PERRL, EOMI, anicteric ENT- oropharynx clear Neck- supple, no JVD, no adenopathy, no thyromegaly; carotids +2/2, no bruits appreciated Lungs- clear to auscultation bilaterally, no rales/wheezes Heart- normal rate, regular rhythm; no murmur, no gallop, no rub appreciated Abdomen- normal bowel sounds, nondistended, soft, nontender, positive splenomegaly Extremities- no pretibial edema, no calf tenderness; peripheral pulses intact Neuro- alert, oriented x 3; CN 2-12 grossly intact; motor 5/5 bilaterally;sensation 100% on all extremities; no other gross focal neurologic deficits Skin- warm & dry Results & Data Results & Data ([facility]) Vital Signs (Past 12 Hours) Vital Signs Temp Pulse Pulse Pulse Resp BP Pulse Ox 01/25/21 14:58 74 01/25/21 11:43 36.7 C 81 18 98/49 L 96 01/25/21 09:19 77 01/25/21 07:36 36.4 C L 81 16 102/57 L 97 01/25/21 06:50 36.5 C 77 15 111/59 L 95 all noted and reviewed including below
[2021-01-25] MEDS: PANTOprazole 40 MG TAB PO SCH (20:15)
[2021-01-25] MEDS ORDERED: CEFEPIME 2,000 MG in SYRINGE 0 ML IV SCH (21:00)
[2021-01-26] MEDS: HYDROCORTISONE SOD 50 MG in SYRINGE 0 ML IV SCH ×4 (01:41→21:37)
[2021-01-26] MEDS: MELATONIN 3 MG TAB PO PRN ×2 (02:04→21:37)
[2021-01-26] MEDS: ACETAMINOPHEN 325 MG TAB PO PRN ×2 (03:07→21:42)
[2021-01-26] MEDS: LEVOTHYROXINE SODIUM 75 MCG TABLET PO SCH (06:35)
[2021-01-26] MEDS: PIPERACILLIN/TAZOBACTAM 3.375 GM in DEXTROSE 5% 100 ML IV SCH ×3 (06:37→21:42)
[2021-01-26 07:30] LABS: Creatinine Clr Calc Pharmacy 35.4 ml/min; Est GFR (African American) 72.9 ml/min; Est GFR (Non-African American) 62.9 ml/min
[2021-01-26 07:40] LABS: Thyroid Stimulating Hormone 0.512 uIu/ml (0.300-4.500)
[2021-01-26] MEDS: DORZOLAMIDE HCL 2% OPH SOLN 10 ML BTL OP SCH (08:51)
[2021-01-26] MEDS: MYCOPHENOLATE MOFETIL 250 MG CAP PO SCH ×2 (08:53→21:38)
[2021-01-26] MEDS: TIMOLOL MALEATE 0.5% OP SOLN 5 ML BTL OP SCH (08:53)
--- NOTE | 2021-01-26 09:22 | CT Scan Report ---
CT chest diagnostic wo con CT DOSE: 168.04 mGy.cm HISTORY: sepsis, r/o pneumonia TECHNIQUE: Multiaxial CT images of the chest were performed without contrast. A dose lowering techni que was utilized adhering to the principles of ALARA. COMPARISON: Abdomen and pelvis CT 01/24/2021. FINDINGS: Mild biapical pleural-parenchymal scarlike densities. No pneumothorax. Small bilateral pleu ral effusions are again noted. The central airways are patent. Mild emphysema. Linear densities withi n the base of the bilateral lower lobes are nonspecific but favor atelectasis. A pneumonia could also have a similar appearance but is considered less likely. Mild interlobular septal thickening at the lung bases suggestive of mild congestive change. No suspicious lytic or blastic osseous lesions. Limi cherrie views of the upper abdomen demonstrate a normal liver and an enlarged spleen. There is a moderate hiatus hernia. Otherwise, normal caliber esophagus. Mild body wall edema is noted. The heart is bord mal enlarged. Mild calcified plaque within the normal caliber thoracic aorta. No mediastinal or hi lar lymphadenopathy. IMPRESSION: 1. Mild interlobular septal thickening at the lung bases with small bilateral pleural effusions and b orderline enlargement of the cardiac silhouette. This suggests mild congestive change. 2. Bibasilar linear densities favor subsegmental atelectasis. A pneumonia could also have a similar a ppearance but is considered less likely. 3. Mild body wall edema. 4. Splenomegaly again noted. 5. Moderate hiatus hernia. ACT 112: Negative or not required by law. Electronically signed by: Te Ham M.D. 01/26/2021 9:20 AM
[2021-01-26 10:02] LABS: Mean Corpuscular Hgb Conc 30.9 g/dL (32-36); Nucleated RBC # (auto) 0.14 K/uL (0-0); Nucleated RBC % (auto) 0.6 %
[2021-01-26 10:26] LABS: Hematocrit (blood only) 30.1 % (37-47); Hemoglobin 9.3 g/dL (12.0-16.0); Mean Corpuscular Hemoglobin 31.3 pg (25-34); Mean Corpuscular Volume 101.3 fL (80-100); Mean Platelet Volume 11.5 fL (7.4-10.4); Platelet Count 101 K/uL (130-400); RDW Standard Deviation 84.2 fL (36.4-46.3); Red Blood Count 2.97 M/uL (4.2-5.4); White Blood Count 22.28 K/uL (4.8-10.8)
[2021-01-26 10:27] LABS: ANC (manual) 20.12 K/uL (1.4-6.5); Anisocytosis Present; Lymphocytes % (manual) 0.9 %; Metamyelocytes % (manual) 0.9 %; Monocytes # (manual) 1.18 K/uL (0.11-0.59); Monocytes % (manual) 5.3 %; Myelocytes # (manual) 0.58 K/uL (0-0); Myelocytes % (manual) 2.6 %; Neutrophils # (manual) 20.12 K/uL (1.4-6.5); Neutrophils % (manual) 90.3 %; Platelet Estimate Decreased (Normal); Polychromasia 1+; Tear Drop Cells 1+
[2021-01-26] MEDS: DOXYCYCLINE HYCLATE 100 MG CAP PO SCH ×2 (10:31→21:37)
--- NOTE | 2021-01-26 10:47 | Consultation Report ---
HEMATOLOGY CONSULTATION DATE OF SERVICE: 01/26/2021 REASON FOR CONSULTATION: An 86-year-old female patient with history of agnogenic myeloid metaplasia (myelofibrosis). HISTORY OF PRESENT ILLNESS: Milagro is a very pleasant 86-year-old elderly female admitted to [facility] on 01/24 with generalized weakness, low-grade fever and chills. This lady actually has a relationship with Dr. Abelardo parks in [place], currently being managed for idiopathic myelofibrosis. Milagro relates being on a JAK2 therapy. She does not remember the drug name, perhaps Jakafi b.i.d.; however, she has not been on therapy now for 6 months. The patient also relates a history of ovarian cancer, status post surgery and chemotherapy as well as chronic thrombocytopenia, which I would suggest is part of her underlying myeloproliferative disorder. I have been asked to weigh in on her hematologic status. PAST MEDICAL HISTORY: As per HPI, which includes mucous membrane pemphigoid, primary hyperparathyroidism, hypothyroidism, past tobacco abuse, idiopathic myelofibrosis and history of ovarian cancer. PAST SURGICAL HISTORY: Bowel resection, cholecystectomy, colonoscopy, colostomy reversal, hysterectomy, lithotripsy, bilateral cataract extraction, previous back surgery, and thyroidectomy. MEDICATIONS: Include prednisone 10 mg p.o. Daily, omeprazole 20 mg p.o. daily, CellCept 500 mg p.o. b.i.d., levothyroxine 75 mcg p.o. daily, doxepin 30 mg p.o. at bedtime. ALLERGIES: NIACIN AND NAPROSYN. SOCIAL HISTORY: The patient lives with her daughter. She is a nonsmoker, nondrinker, nonillicit drug user. FAMILY HISTORY: Father of congestive heart failure. Mother of complications of hypertension. REVIEW OF SYSTEMS: CONSTITUTIONAL: As per HPI, most notably for generalized weakness and low-grade fever and chills. Denied anorexia or weight loss. SKIN: No rashes or lesions. No history of dermatoses. HEENT: Negative for headaches, lightheadedness or dizziness. No acute visual or hearing deficits. No sinus symptoms, sore throat or dysphagia. LYMPH NODES: No history of lymphoproliferative disease. CARDIAC: Negative for coronary artery disease, no angina or palpitations. PULMONARY: Negative for COPD. No shortness of breath, dyspnea, or orthopnea. No cough or hemoptysis. GASTROINTESTINAL: Negative for abdominal pain, nausea, vomiting, diarrhea or constipation, hematochezia or melena stools. GENITOURINARY: No hematuria, dysuria, or urinary incontinence. PSYCHIATRIC: Negative for anxiety, depression, or psychoses. ENDOCRINE: Positive for hypothyroidism. MUSCULOSKELETAL: No arthralgias or myalgias. No focal muscle weakness. NEUROLOGIC: Negative for seizure, stroke or migraine headache. HEMATOLOGIC: Positive for leukocytosis, anemia and mild thrombocytopenia. PHYSICAL EXAMINATION: GENERAL: A very pleasant 86-year-old elderly female, awake, alert and appropriate, in no acute distress. VITAL SIGNS: Temperature 36.4, pulse 68, respiratory rate 18, blood pressure 125/62. SKIN: Warm, dry, noncyanotic without petechia, rash or ecchymosis. HEENT: Head atraumatic, normocephalic. Eyes: PERRLA. EOMI. Sclerae are nonicteric. No conjunctival injection. Nares patent without rhinorrhea or discharge. Throat clear. Tongue midline. Mucous membranes are moist. NECK: Supple without JVD or thyromegaly. LYMPH NODES: No cervical, supraclavicular, axillary or inguinal palpable nodes. HEART: Regular rate and rhythm. No clicks, rubs, murmurs or gallops. LUNGS: Clear to auscultation bilaterally. ABDOMEN: Soft, nontender, nondistended. Splenic tip is felt in the left upper quadrant. EXTREMITIES: No clubbing, cyanosis or edema. Strength and pulses are equal in all 4 quadrants. No clubbing, cyanosis or edema. NEUROLOGICAL: She is awake, alert and oriented x3. Cranial nerves are grossly intact. LABORATORY DATA: Urine and blood cultures are negative thus far. CBC from 01/25, WBC 22,400, hemoglobin 10.3, MCV 100.9, platelet count 93,000, absolute neutrophil count 18,860. She has a monocytosis 2730 and 200 myelocytes reported. Sodium 136, potassium 4.8, chloride 103, carbon dioxide 26, BUN 19, creatinine 0.93. RADIOGRAPHIC DATA: CT scan of the abdomen and pelvis reveals marked splenomegaly measuring over 20 cm in length. Chronic diverticulosis without acute diverticulitis. IMPRESSION: 1. Suspected septicemia. 2. Splenomegaly. 3. Idiopathic myelofibrosis. 4. History of ovarian cancer. PLAN: I have been asked to introduce myself to Milagro who is currently under the care of Dr. Zhou, audit mgr up in [place] through the [facility], currently under care for myeloproliferative disease. Milagro relates being on anti-JAK2 therapy up until 6 months ago when her counts supposedly stabilized. I was not terribly impressed with her counts recently other than the leukocytosis, which can be explained by underlying infection, inflammation and chronic steroid use. The fact that she has some immaturity within the white cell differential paints a myelophistic picture, which is consistent with underlying myelofibrosis. She does not need intervention from a hematologic standpoint and the patient is about to follow up with Dr. Zhou upon discharge. Massive splenomegaly is also consistent with underlying myelofibrosis. Milagro currently does not require transfusional support. I did take a notice that her platelets seem to be dropping a bit, which could be reflective of myelosuppression brought on by perhaps impending sepsis. Cultures are negative thus far. I would continue appropriate supportive care otherwise. I do not need to see Milagro post-hospitalization as she will return to Dr. Zhou. Any questions or concerns, please feel free to contact me at any time. Job ID: [id number] [facility]
--- NOTE | 2021-01-26 16:22 | Hospitalist Progress Note ---
Date of Service January 26, 2021 Assessment & Plan (1) Sepsis: Plan: 88-year-old female with history of primary myelofibrosis, essential thrombocytosis Hypothyroidism, severe stomatitis, on prednisone and mycophenolate Presenting with weakness. SEPSIS POSSIBLE PNEUMONIA IMMUNOCOMPROMISE STATE, ON CHRONIC PREDNISONE AND MYCOPHENOLATE Afebrile since this morning, leukocytosis improving UA: Not suggestive of UTI Urine culture: Pending Blood cultures: Pending Nasal MRSA screen: Negative Bio fire including Covid PCR: Negative CT abdomen pelvis: 1. No bowel obstruction or bowel wall thickening. 2. Marked enlargement of the spleen measuring over 20 cm in length is new from 2016. Hematology workup is recommended. 3. Colonic diverticulosis without acute diverticulitis. 4. Cholecystectomy. 5. Moderate fecal retention. 6. Cardiomegaly with mild pulmonary edema and trace pleural effusions. CT chest: 1. Mild interlobular septal thickening at the lung bases with small bilateral pleural effusions and borderline enlargement of the cardiac silhouette. This suggests mild congestive change. 2. Bibasilar linear densities favor subsegmental atelectasis. A pneumonia could also have a similar appearance but is considered less likely. 3. Mild body wall edema. 4. Splenomegaly again noted. 5. Moderate hiatus hernia. Afebrile since admission, leukocytosis improved from 34-22 Continue empiric Zosyn and doxycycline day #2 Follow-up cultures Taper off hydrocortisone as noted below HYPOTENSION LIKELY SECONDARY TO SEPSIS POSSIBLE ADRENAL INSUFFICIENCY, CHRONIC PREDNISONE USE Usually on prednisone 10 mg p.o. daily Lowest blood pressure in the ER was 89/40 Hydrocortisone 50 mg every 6 hours started--> blood pressure improving, taper hydrocortisone to every 8 hours, then every 12 hours tomorrow, then resume usual prednisone 10 milligrams daily PRIMARY MYELOFIBROSIS, ESSENTIAL THROMBOCYTOSIS As per admitting MD Dr. Ma: Patient aspirin and Hydrea on hold due to stomach upset and aphthous ulcerations as per outpatient [facility] Oncology note Continue mycophenolate Hold prednisone Positive splenomegaly on CAT scan, new finding in comparison to 2016 as per radiology report Peripheral smear: Consistent with primary myelofibrosis [employer] consulted, no further intervention at this point, appreciate the recommendations HX OVARIAN CANCER STATUS POST SURGERY/CHEMOTHERAPY PRIMARY HYPERPARATHYROIDISM, patient follows with [facility] POSTSURGICAL HYPOTHYROIDISM, outpatient TSH slightly elevated at 4.8 last September 2020 DVT prophylaxis. SCDs Re: Thrombocytopenia Full code plan of care discussed with patient and her daughter Suzy over the phone in detail and at length all questions answered They are understanding, agreeable, comfortable with the plan of care Admission and Anticipated Discharge Date Admission Date: January 24, 2021 Subjective Follow-up for sepsis, possible pneumonia, etc. Seen sitting up in bedside chair, not in distress, appears tired States she was not able to sleep well last night Otherwise feels fine has occasional dry cough Denies headache, dizziness, sputum production, chest pain, abdominal pain, problems with urination or bowel movement No nausea or vomiting No other symptoms Review of Systems Review of Systems: all noted and negative except for above Physical Exam Physical Exam: General- oriented x 3, not in distress, speaks in sentences with no effort or accessory muscle use Appears tired Eyes- anicteric Neck- no JVD Lungs-mild rales at the bases, no wheezing, good air entry bilaterally Heart- normal rate, regular rhythm; no murmurs Abdomen- normal bowel sounds, nondistended, soft, nontender Positive splenomegaly Extremities- no pretibial edema, no calf tenderness Neuro- alert, oriented x 3; no gross focal neurologic deficits Skin- warm & dry Results & Data Results & Data ([facility]) Vital Signs (Past 12 Hours) Vital Signs Temp Pulse Pulse Resp BP Pulse Ox 01/26/21 16:03 36.4 C L 64 18 129/60 96 01/26/21 15:14 67 01/26/21 11:28 36.5 C 60 14 115/64 99 01/26/21 08:00 67 01/26/21 07:47 36.4 C L 68 18 125/62 98 all noted and reviewed including below
[2021-01-26] MEDS: PANTOprazole 40 MG TAB PO SCH (21:38)
[2021-01-27] MEDS ORDERED: LORazepam 0.5 MG TAB PO STA (00:27)
[2021-01-27] MEDS: PIPERACILLIN/TAZOBACTAM 3.375 GM in DEXTROSE 5% 100 ML IV SCH ×3 (06:39→20:37)
[2021-01-27] MEDS: HYDROCORTISONE SOD 50 MG in SYRINGE 0 ML IV SCH ×3 (06:39→20:37)
[2021-01-27] MEDS: LEVOTHYROXINE SODIUM 75 MCG TABLET PO SCH (06:39)
[2021-01-27 08:06] LABS: Creatinine Clr Calc Pharmacy 32.5 ml/min; Est GFR (African American) 66.2 ml/min; Est GFR (Non-African American) 57.1 ml/min
[2021-01-27] MEDS: TIMOLOL MALEATE 0.5% OP SOLN 5 ML BTL OP SCH (09:27)
[2021-01-27] MEDS: DORZOLAMIDE HCL 2% OPH SOLN 10 ML BTL OP SCH (09:27)
[2021-01-27] MEDS: DOXYCYCLINE HYCLATE 100 MG CAP PO SCH ×2 (09:28→20:38)
[2021-01-27] MEDS: MYCOPHENOLATE MOFETIL 250 MG CAP PO SCH ×2 (09:28→20:38)
[2021-01-27] MEDS: PANTOprazole 40 MG TAB PO SCH (20:38)
--- NOTE | 2021-01-27 21:52 | Hospitalist Progress Note ---
Date of Service January 27, 2021 Assessment & Plan (1) Sepsis: Plan: 88-year-old female with history of primary myelofibrosis, essential thrombocytosis Hypothyroidism, severe stomatitis, on prednisone and mycophenolate Presenting with weakness. SEPSIS POSSIBLE PNEUMONIA IMMUNOCOMPROMISE STATE, ON CHRONIC PREDNISONE AND MYCOPHENOLATE Afebrile since this morning, leukocytosis improving UA: Not suggestive of UTI Urine culture: Pending Blood cultures: Pending Nasal MRSA screen: Negative Bio fire including Covid PCR: Negative CT abdomen pelvis: 1. No bowel obstruction or bowel wall thickening. 2. Marked enlargement of the spleen measuring over 20 cm in length is new from 2016. Hematology workup is recommended. 3. Colonic diverticulosis without acute diverticulitis. 4. Cholecystectomy. 5. Moderate fecal retention. 6. Cardiomegaly with mild pulmonary edema and trace pleural effusions. CT chest: 1. Mild interlobular septal thickening at the lung bases with small bilateral pleural effusions and borderline enlargement of the cardiac silhouette. This suggests mild congestive change. 2. Bibasilar linear densities favor subsegmental atelectasis. A pneumonia could also have a similar appearance but is considered less likely. 3. Mild body wall edema. 4. Splenomegaly again noted. 5. Moderate hiatus hernia. Afebrile since admission, leukocytosis improved from 34-22 Continue empiric Zosyn and doxycycline day #2 Follow-up cultures Taper off hydrocortisone as noted below HYPOTENSION LIKELY SECONDARY TO SEPSIS POSSIBLE ADRENAL INSUFFICIENCY, CHRONIC PREDNISONE USE Usually on prednisone 10 mg p.o. daily Lowest blood pressure in the ER was 89/40 Hydrocortisone 50 mg every 6 hours started--> blood pressure improving, taper hydrocortisone to every 8 hours, then every 12 hours tomorrow, then resume usual prednisone 10 milligrams daily PRIMARY MYELOFIBROSIS, ESSENTIAL THROMBOCYTOSIS As per admitting MD Dr. Ma: Patient aspirin and Hydrea on hold due to stomach upset and aphthous ulcerations as per outpatient [facility] Oncology note Continue mycophenolate Hold prednisone Positive splenomegaly on CAT scan, new finding in comparison to 2016 as per radiology report Peripheral smear: Consistent with primary myelofibrosis [employer] consulted, no further intervention at this point, appreciate the recommendations HX OVARIAN CANCER STATUS POST SURGERY/CHEMOTHERAPY PRIMARY HYPERPARATHYROIDISM, patient follows with [facility] POSTSURGICAL HYPOTHYROIDISM, outpatient TSH slightly elevated at 4.8 last September 2020 DVT prophylaxis. SCDs Re: Thrombocytopenia Full code Disposition Plan to discharge in am Admission and Anticipated Discharge Date Admission Date: January 24, 2021 Subjective Follow-up for sepsis, possible pneumonia Lying in bed with no acute distress Pt said that she feels much better Denies headache, dizziness, sputum production, chest pain, abdominal pain, problems with urination or bowel movement Review of Systems Review of Systems: All systems reviewed & are unremarkable except as noted in Subjective Physical Exam Physical Exam: General- No acute distress Head- atraumatic Eyes- PERRL, EOMI, ENT- oropharynx clear Neck- supple, no JVD Lungs- clear to auscultation Heart- regular rhythm; no murmur Abdomen- normal bowel sounds, soft, nontender Extremities- no calf tenderness Neuro- alert, oriented x 3; PERRL, EOMI; no facial palsy; no dysarthria Skin- warm & dry Results & Data Results & Data ([facility]) Vital Signs (Past 12 Hours) Vital Signs Temp Pulse Pulse Resp BP Pulse Ox 01/27/21 20:24 37.5 C 96 H 20 167/63 H 95 01/27/21 15:47 74 01/27/21 15:16 36.8 C 80 18 161/56 H 95 01/27/21 11:41 36.3 C L 74 17 130/54 L 95 01/27/21 11:00 61
[2021-01-28] MEDS: HYDROCORTISONE SOD 50 MG in SYRINGE 0 ML IV SCH (05:56)
[2021-01-28] MEDS: PIPERACILLIN/TAZOBACTAM 3.375 GM in DEXTROSE 5% 100 ML IV SCH (05:57)
[2021-01-28] MEDS: LEVOTHYROXINE SODIUM 75 MCG TABLET PO SCH (06:17)
[2021-01-28 08:21] LABS: BUN Creatinine Ratio 23.3 (10-20); Creatinine Clr Calc Pharmacy 49.8 ml/min; Est GFR (African American) 95.1 ml/min; Est GFR (Non-African American) 82.1 ml/min; Potassium 3.1 mmol/L (3.5-5.1)
[2021-01-28] MEDS: DOXYCYCLINE HYCLATE 100 MG CAP PO SCH (08:23)
[2021-01-28] MEDS: MYCOPHENOLATE MOFETIL 250 MG CAP PO SCH (08:24)
[2021-01-28] MEDS: TIMOLOL MALEATE 0.5% OP SOLN 5 ML BTL OP SCH (08:24)
[2021-01-28] MEDS: DORZOLAMIDE HCL 2% OPH SOLN 10 ML BTL OP SCH (08:24)
[2021-01-28] MEDS ORDERED: POTASSIUM CHLORIDE CRTAB 20 MEQ TABCR PO STA (09:42)
--- NOTE | 2021-01-28 15:34 | Discharge Summary ---
Date of Service January 28, 2021 Admission HPI Per Admitting Provider History obtained from patient and records. 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 Few days history of increasing weakness, nausea, poor p.o. intake. Left-sided achy abdominal pain. Patient denies chest pain, cough, S OB. SBP noted to be low at home. 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 Admission Exam Per Admitting Provider GENERAL: Slightly uncomfortable, wane, underweight, no respiratory distress SKIN: Pallor,, warm HEENT: Pale palpebral conjunctivae, no ptosis, dry buccal mucosa NECK : Supple, no tenderness CHEST : CTA, no tenderness HEART : RRR, no obvious murmurs ABDOMEN: no distention, minimal left side abdominal tenderness EXTREMITIES : No LE swelling/tenderness, no other conspicuous deformities noted NEUROLOGIC : Coherent, no facial asymmetry, no other gross focality Principal Diagnosis SEPSIS IMMUNOCOMPROMISE STATE HYPOTENSION PRIMARY MYELOFIBROSIS ESSENTIAL THROMBOCYTOSIS HX OVARIAN CANCER STATUS POST SURGERY/CHEMOTHERAPY PRIMARY HYPERPARATHYROIDISM POSTSURGICAL HYPOTHYROIDISM Discharge Exam General- No acute distress Head- atraumatic Eyes- PERRL, EOMI, ENT- oropharynx clear Neck- supple, no JVD Lungs- clear to auscultation Heart- regular rhythm; no murmur Abdomen- normal bowel sounds, soft, nontender Extremities- no calf tenderness Neuro- alert, oriented x 3; PERRL, EOMI; no facial palsy; no dysarthria Skin- warm & dry Discharge Data Allergies Allergy/AdvReac Type Severity Reaction Status Date / Time naproxen Allergy Mild RASH Verified 01/24/21 18:21 niacin Allergy Mild RASH Verified 01/24/21 18:21 Consultations 01/24/21 22:04 ED Decision to Admit Stat 01/25/21 14:12 Consult Hematology Routine Ordered Studies 01/24/21 21:34 CT abd pelvis IV con only Urgent 01/25/21 18:44 CT chest diagnostic wo con Routine CT chest diagnostic wo con CT DOSE: 168.04 mGy.cm HISTORY: sepsis, r/o pneumonia TECHNIQUE: Multiaxial CT images of the chest were performed without contrast. A dose lowering technique was utilized adhering to the principles of ALARA. COMPARISON: Abdomen and pelvis CT 01/24/2021. FINDINGS: Mild biapical pleural-parenchymal scarlike densities. No pneumothorax. Small bilateral pleural effusions are again noted. The central airways are patent. Mild emphysema. Linear densities within the base of the bilateral lower lobes are nonspecific but favor atelectasis. A pneumonia could also have a similar appearance but is considered less likely. Mild interlobular septal thickening at the lung bases suggestive of mild congestive change. No suspicious lytic or blastic osseous lesions. Limited views of the upper abdomen demonstrate a normal liver and an enlarged spleen. There is a moderate hiatus hernia. Otherwise, normal caliber esophagus. Mild body wall edema is noted. The heart is borderline enlarged. Mild calcified plaque within the normal caliber thoracic aorta. No mediastinal or hilar lymphadenopathy. IMPRESSION: 1. Mild interlobular septal thickening at the lung bases with small bilateral pleural effusions and borderline enlargement of the cardiac silhouette. This suggests mild congestive change. 2. Bibasilar linear densities favor subsegmental atelectasis. A pneumonia could also have a similar appearance but is considered less likely. 3. Mild body wall edema. 4. Splenomegaly again noted. 5. Moderate hiatus hernia. ACT 112: Negative or not required by law. Electronically signed by: Te Ham M.D. 01/26/2021 9:20 AM Dictated: 01/26/21915Transcribed: 01/26/[address] WITH IV CONTRAST CT DOSE: 361.83 mGy.cm HISTORY: Acute fever with weakness fever, weak, prior surgery TECHNIQUE: Multiaxial CT images of the abdomen and pelvis were performed following the IV administration of 94 cc of Optiray, A dose lowering technique was utilized adhering to the principles of ALARA. COMPARISON STUDY: Chest radiograph of same day, CT abdomen and pelvis 07/15/2015 FINDINGS: Cardiomegaly with coronary artery calcifications. Trace pleural effusions with dependent bibasilar atelectasis. Mild intralobular septal thickening. The central airways are patent. No pneumatosis or pneumoperitoneum. Marked splenomegaly measures over 20 cm in length. This represents a change from the 2016 comparison. The liver is mildly enlarged. Cholecystectomy. Patency of the hepatic and portal veins. Mildly atrophic pancreas. Intrahepatic and extrahepatic biliary ductal prominence is likely on a postsurgical basis. Unremarkable adrenal glands. 2 nonobstructing calculi of the right kidney measure up to 4 mm. There are a few calcifications of the left kidney measuring up to 3 mm. There are a few cysts of the kidneys measuring up to 1.3 cm on the right and 1.5 cm on the left. No hydronephrosis. Unremarkable urinary bladder. Uterus is either atrophic or surgically absent. Atherosclerosis of the aorta without aneurysm. No adenopathy. Unremarkable IVC. Moderate sized hiatal hernia with secretions noted within the distal esophagus which is mildly thickened. No bowel obstruction. Colonic diverticulosis with moderate fecal retention. The appendix is reportedly surgically absent. Scattered smaller fluid levels are likely physiologic. Mild generalized body wall edema. Degenerative changes of the spine, pelvis and hips. IMPRESSION: 1. No bowel obstruction or bowel wall thickening. 2. Marked enlargement of the spleen measuring over 20 cm in length is new from 2016. Hematology workup is recommended. 3. Colonic diverticulosis without acute diverticulitis. 4. Cholecystectomy. 5. Moderate fecal retention. 6. Cardiomegaly with mild pulmonary edema and trace pleural effusions. ACT 112: Negative or not required by law. The above report was generated using voice recognition software. It may contain grammatical, syntax or spelling errors. Electronically signed by: Chris Vega M.D. 01/25/2021 9:11 AM Dictated: 01/25/21900Transcribed: 01/25/21900 XR chest 1V portable HISTORY: SEPSIS COMPARISON: Chest 10/29/2020. FINDINGS: No pneumothorax. No pleural effusions. No new focal lung consolidations to suggest pneumonia. No evidence for pulmonary edema. The heart is normal in size. Calcifications within the aortic knob are again noted. IMPRESSION: No significant change compared to the prior study. No acute process. ACT 112: Negative or not required by law. Electronically signed by: Te Ham M.D. 01/24/2021 7:50 PM Dictated: 01/24/211947Transcribed: 01/24/211947 Hospital Course (1) Sepsis: 88-year-old female with history of primary myelofibrosis, essential thrombocytosis Hypothyroidism, severe stomatitis, on prednisone and mycophenolate Presenting with weakness. SEPSIS POSSIBLE PNEUMONIA IMMUNOCOMPROMISE STATE, ON CHRONIC PREDNISONE AND MYCOPHENOLATE Afebrile since this morning, leukocytosis improving UA: Not suggestive of UTI Urine culture: Pending Blood cultures: Pending Nasal MRSA screen: Negative Bio fire including Covid PCR: Negative CT abdomen pelvis: 1. No bowel obstruction or bowel wall thickening. 2. Marked enlargement of the spleen measuring over 20 cm in length is new from 2016. Hematology workup is recommended. 3. Colonic diverticulosis without acute diverticulitis. 4. Cholecystectomy. 5. Moderate fecal retention. 6. Cardiomegaly with mild pulmonary edema and trace pleural effusions. CT chest: 1. Mild interlobular septal thickening at the lung bases with small bilateral pleural effusions and borderline enlargement of the cardiac silhouette. This suggests mild congestive change. 2. Bibasilar linear densities favor subsegmental atelectasis. A pneumonia could also have a similar appearance but is considered less likely. 3. Mild body wall edema. 4. Splenomegaly again noted. 5. Moderate hiatus hernia. Afebrile since admission, leukocytosis improved from 34-22 Continue empiric Zosyn and doxycycline day #2 Follow-up cultures Taper off hydrocortisone as noted below HYPOTENSION LIKELY SECONDARY TO SEPSIS POSSIBLE ADRENAL INSUFFICIENCY, CHRONIC PREDNISONE USE Usually on prednisone 10 mg p.o. daily Lowest blood pressure in the ER was 89/40 Hydrocortisone 50 mg every 6 hours started--> blood pressure improving, taper hydrocortisone to every 8 hours, then every 12 hours tomorrow, then resume usual prednisone 10 milligrams daily PRIMARY MYELOFIBROSIS, ESSENTIAL THROMBOCYTOSIS As per admitting MD Dr. Ma: Patient aspirin and Hydrea on hold due to stomach upset and aphthous ulcerations as per outpatient [facility] Oncology note Continue mycophenolate Hold prednisone Positive splenomegaly on CAT scan, new finding in comparison to 2016 as per radiology report Peripheral smear: Consistent with primary myelofibrosis Family And Marriage Counsellor consulted, no further intervention at this point, appreciate the recommendations HX OVARIAN CANCER STATUS POST SURGERY/CHEMOTHERAPY PRIMARY HYPERPARATHYROIDISM, patient follows with [facility] POSTSURGICAL HYPOTHYROIDISM, outpatient TSH slightly elevated at 4.8 last September 2020 DVT prophylaxis. SCDs Re: Thrombocytopenia Full code Disposition Plan to discharge in am Total Time Total Time Spent Total Time Spent (In Minutes): 35 minutes Discharge Plan Discharge Items Patient Disposition: Home - Self-Care Reason For Visit: SEPSIS Discharge Diagnosis: SEPSIS IMMUNOCOMPROMISE STATE HYPOTENSION PRIMARY MYELOFIBROSIS ESSENTIAL THROMBOCYTOSIS HX OVARIAN CANCER STATUS POST SURGERY/CHEMOTHERAPY PRIMARY HYPERPARATHYROIDISM POSTSURGICAL HYPOTHYROIDISM Activity: Resume your previous activity Non-emergency contact: Primary Care Provider Call non-emergency contact if: you have any medication questions Follow-up/Referrals: Ivy Meier MD [Primary Care Provider] - (Date & Time 02/03/2021 1:40 PM Provider Tomasa Covington MD Department [facility] ) Diet: Heart Healthy Addtl Attending Provider Instructions: Follow up with your primary care provider Dr. Tomasa Covington on 02/03/2021 at 1:40 PM at the [facility] Follow up with your Oncology DrGalina Mazariegos precaution Increase potassium intake in your diet Check CBC in 1 week to monitor your hemoglobin and white cell count Check BMP in 1 week to monitor your electrolytes Pending Studies at Discharge: No Stand-Alone Forms: My [facility] [employer], Smoking Cessation Medications and DC Order Prescriptions: Continued doxepin 10 mg Capsule 20 - 30 mg PO HS RF: 0 levothyroxine 75 mcg Tablet 75 mcg PO DAILYBB RF: 0 dorzolamide-timolol (PF) 2-0.5 % Drops 1 drp OPHTHALMIC (EYE) QAM RF: 0 omeprazole 20 mg capsule,delayed release(DR/EC) 20 mg PO DAILYBB RF: 0 mycophenolate mofetil 500 mg tablet 500 mg PO BID RF: 0 prednisone 10 mg tablet 10 mg PO QDB RF: 0 Discharge Orders: Discharge Order (Routine); Ordered 01/28/21 Ordered By: Kym Mercado Admission Data Admit Date/Time: 01/24/21 23:28 Attending Provider: Kym Mercado Admit Provider: Wilder Bai Primary Care Provider: Ivy Meier Other Providers: Shaun Mckinley V. Other Interventions: Discharge Summary Assessment (RN) Last Done: 01/28/21 16:23
[2021-01-28] MEDS ORDERED: HYDROCORTISONE SOD 50 MG in SYRINGE 0 ML IV SCH (21:00)
== END 2021-01-28 18:09 | disposition home or self-care (01) | DRG 871 ==
LOC: ED 17:33 → 2S 23:28 → SUATTDRO 23:28 → 2S 01-25 02:30
DX: Z79.890 Hormone replacement therapy; Z79.52 Long term (current) use of systemic steroids; E89.0 Postprocedural hypothyroidism; D47.3 Essential (hemorrhagic) thrombocythemia; Z88.6 Allergy status to analgesic agent; E27.40 Unspecified adrenocortical insufficiency; A41.9 Sepsis, unspecified organism; Z85.43 Personal history of malignant neoplasm of ovary; J18.9 Pneumonia, unspecified organism; Z90.49 Acquired absence of other specified parts of digestive tract; D47.1 Chronic myeloproliferative disease; E21.0 Primary hyperparathyroidism; H40.9 Unspecified glaucoma; Z88.8 Allergy status to other drugs, medicaments and biological substances; L12.1 Cicatricial pemphigoid; E78.5 Hyperlipidemia, unspecified; Z82.49 Family history of ischemic heart disease and other diseases of the circulatory system; Z92.21 Personal history of antineoplastic chemotherapy; D84.9 Immunodeficiency, unspecified; Z90.710 Acquired absence of both cervix and uterus; K12.0 Recurrent oral aphthae; Z79.899 Other long term (current) drug therapy

== ENCOUNTER 2021-06-22 10:38 | Inpatient (IN) ==
[2021-06-22] MEDS ORDERED: CEFEPIME 2,000 MG/20 ML VIAL IV STA (10:56)
[2021-06-22] MEDS ORDERED: SODIUM CHLORIDE 0.9% 1000ML 500 ML IV ONE (10:56)
[2021-06-22] MEDS ORDERED: ONDANSETRON INJ 2 MG/ML 2 ML VIAL IV STA (11:04)
--- NOTE | 2021-06-22 11:09 | Emergency Department Note ---
Impression & Plan Vomiting, Fever, Leukocytosis, Acute hyponatremia, Diffuse abdominal pain ED Provider Note NAME: INGA MENDEZ AGE: 86 SEX: F : 1935 ARRIVES VIA: Ambulance INFORMANT: [Patient] ED PROVIDER(S): [Boyd Davey MD] CHIEF COMPLAINT: Abdominal pain HISTORY OF PRESENT ILLNESS: The patient is an 86-year-old female with a history of immunocompromise. She has had a few months of some crampy abdominal pain. Last night, she vomited. She has vomited 4 times so far in the last 24 hours. She was also noted to be febrile in the last 24 hours. She was given Tylenol prior to arrival today. The patient denies cough or shortness of breath. There is no sore throat. No urinary complaints. She is moving her bowels. She states that she is vaccinated for COVID-19 and the flu. No recent sick contacts. REVIEW OF SYSTEMS: See HPI for pertinent positives and negatives. A total of ten systems were reviewed and were otherwise negative. PMHx/PSHx: See Below SOCIAL HISTORY: See Below. PHYSICAL EXAM: GENERAL: Patient is in no acute distress. HEENT: No acute trauma, normocephalic atraumatic, mucous membranes moist, no nasal congestion, no scleral icterus. NECK: No stridor, no adenopathy, no meningismus, trachea is midline. LUNGS: Clear but diminished breath sounds bilaterally, no wheezing or rhonchi. No respiratory distress. HEART: Without murmurs gallops or rubs, regular rate and rhythm. ABDOMEN: Soft, mildly diffusely tender, abdominal distention noted, bowel sounds positive, no hernias, no peritonitis. EXTREMITIES: No cyanosis, moderate right lower extremity edema, full range of motion of all the joints without pain or difficulty, no signs for acute trauma. NEUROLOGIC: Oriented x 3, no acute motor or sensory deficits, no focal weakness. SKIN: No rash, no jaundice, no diaphoresis. Warm to the touch. DIFFERENTIAL DIAGNOSIS: Dehydration, appendicitis, sepsis, bacteremia, COVID-19, ovarian cyst, ovarian torsion, diverticulitis, UTI, obstruction, mesenteric ischemia, aortic pathology, inflammatory bowel disease, renal colic, PUD, pancreatitis, biliary pathology, hernia, volvulus, constipation, as well as other pathologies. EMERGENCY DEPARTMENT COURSE/PROCEDURES: ECG: Indication was abdominal pain. The ECG shows a sinus tachycardia with a rate of 101. There is no ST elevation, no PVCs. There is LVH present. The QTc is 422. Continuous Cardiac Monitoring: An order was placed for continuous cardiac monitoring. The monitor shows a rate of 102 with sinus tachycardia. Critical Care Note: I have personally spent 48 minutes of critical care time in the direct management of this patient. This includes bedside care, interpretation of diagnostic studies, and testing, discussion with consultants, patient, and family members, and other required patient management activities. This 48 minutes is in excess of all separately billable procedures. MEDICAL DECISION MAKING: There is a significant leukocytosis at 21,000, this could be consistent with infection. The patient has been running a high white count lately. There is a very mild anemia. Platelet count was low at 51. Renal panel testing shows a lower sodium at 129. No renal failure. Lactic acid level was not elevated making severe sepsis less likely. No concerning liver enzyme elevation. ECG showed a sinus tachycardia, no obvious ischemia. Cardiac enzyme testing x1 was slightly elevated however, this has been documented in the recent past as well and thus the troponin elevation may be more chronic. No evidence for pancreatitis. TSH was slightly elevated, the T4 was normal. Urinalysis did not show evidence for infection. Influenza and Covid testing returned negative. Chest x-ray did not show pneumonia. Abdominal and pelvis CT shows some chronic findings and chronic change, no acute surgical process by CT imaging, no findings of bowel obstruction. The patient received IV saline for hydration. She was given IV Zofran for nausea. She was given IV hydrocortisone as stress dose steroids. She received IV cefepime as empiric antibiotic coverage. The patient presents with vomiting, fever. She has been having abdominal pain as of late. Given the patient's complaints, given her findings, I do think a hospital stay is warranted. I spoke with the patient and case management. The on-call hospitalist was consulted. Bacteremia/sepsis is certainly a concern, the source though is unclear. 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 Zhou in [place] (oncologist) Thrombocytopenia Surgical History History of bowel resection FOR PERFORATION WITH COLOSTOMY History of cholecystectomy History of colonoscopy History of colostomy reversal History of hysterectomy TOTAL History of lithotripsy Hx of bilateral cataract extraction Hx of cystoscopy Previous back surgery LOWER BACK-NO METAL IMPLANTED S/P debridement OF STOMA SITE S/P thyroidectomy FOR GOITER Family History Father CHF (congestive heart failure) Mother Hypertension Social History Smoking Status: Former smoker Smoking End Date: quit 40 years ago; Second Hand Exposure: No; Do You Dip or Chew Tobacco: No; Tobacco Cessation Education Requested by Patient: No Hx Alcohol Use: No Hx Substance Use: No Preferred Language: Gambian Communication Ability: Effective Child Life Assistant Required: No Beliefs That Will Affect Care: None Current Living Situation: Alone Current Living Situation Comment: lives at [facility] How many Children do You have: 2 Other Information That Helps Us Care for You: No Feels Safe at Home: Yes Assistive Devices: Denture - Upper, Denture - Lower, Glasses and Hearing Aid - Bilateral Allergies Allergies Allergy/AdvReac Type Severity Reaction Status Date / Time naproxen Allergy Mild RASH Verified 06/22/21 11:47 niacin Allergy Mild RASH Verified 06/22/21 11:47 Home Meds Home Medications Medication Instructions Recorded Confirmed dorzolamide 2 %-timolol 0.5 % (PF) 1 drp OPB BID 05/24/19 06/22/21 eye drops doxepin 10 mg capsule 10 mg PO HS 05/24/19 06/22/21 levothyroxine 75 mcg tablet 75 mcg PO DAILYBB 05/24/19 06/22/21 mycophenolate mofetil 500 mg tablet 500 mg PO DAILY 10/29/20 06/22/21 omeprazole 20 mg capsule,delayed 20 mg PO DAILYBB 10/29/20 06/22/21 release prednisone 10 mg tablet 5 mg PO QDB 01/24/21 06/22/21 cyanocobalamin (vitamin B-12) 100 100 mcg PO DAILY 06/22/21 06/22/21 mcg tablet ferrous sulfate 325 mg (65 mg 325 mg PO DAILY 06/22/21 06/22/21 iron) tablet (FeroSul) Results & Data (ED) Vital Signs Vital Signs - 24 hr 06/22/21 10:46 06/22/21 10:49 06/22/21 11:00 Temperature 38.0 C H Temperature Source Oral Pulse Rate 101 H 102 H 96 H Pulse Rate from SpO2 Sensor 101 H 96 H Respiratory Rate 13 20 24 Respiratory Effort / Characteristics Non-Labored Respiratory Depth Normal Respiratory Pattern Regular Blood Pressure 114/57 L Blood Pressure Mean 76 Blood Pressure Position Lying Pulse Oximetry 95 95 95 Oxygen Delivery Method Room Air Sepsis Recent Fever Within 48 Hours Yes Sepsis New/Unexplained Change in Mental Status No Sepsis Action Taken by Nursing No Action Required 06/22/21 11:04 06/22/21 11:30 06/22/21 11:48 Temperature Temperature Source Pulse Rate 95 H 96 H Pulse Rate from SpO2 Sensor 96 H Respiratory Rate 20 20 Respiratory Effort / Characteristics Respiratory Depth Respiratory Pattern Blood Pressure 116/48 L Blood Pressure Mean 70 Blood Pressure Position Pulse Oximetry 94 Oxygen Delivery Method Room Air Sepsis Recent Fever Within 48 Hours Sepsis New/Unexplained Change in Mental Status Sepsis Action Taken by Nursing 06/22/21 12:00 06/22/21 12:30 06/22/21 12:31 Temperature Temperature Source Pulse Rate 93 H 96 H 98 H Pulse Rate from SpO2 Sensor 93 H 98 H Respiratory Rate 23 16 Respiratory Effort / Characteristics Respiratory Depth Respiratory Pattern Blood Pressure 111/47 L Blood Pressure Mean 68 Blood Pressure Position Pulse Oximetry 93 96 Oxygen Delivery Method Sepsis Recent Fever Within 48 Hours Sepsis New/Unexplained Change in Mental Status Sepsis Action Taken by Residential Medications Current Medication List: was personally reviewed by me Laboratory Data Attestation: I reviewed the patient's lab results. Result diagrams: 06/22/21 11:10 06/22/21 11:10 Lab Results 06/22/21 06/22/21 06/22/21 Range/Units 11:05 11:10 11:10 WBC (4.8-10.8) K/uL RBC (4.2-5.4) M/uL Hgb (12.0-16.0) g/dL Hct (37-47) % MCV (80-100) fL MCH (25-34) pg MCHC (32-36) g/dL RDW Std Deviation (36.4-46.3) fL RDW Coeff of Yee (11.5-14.5) % Plt Count (130-400) K/uL Absolute Nucleated RBC (0-0) K/uL Nucleated RBC % (auto) % Neutrophils % (Manual) % Lymphocytes % (Manual) % Monocytes % (Manual) % Eosinophils % (Manual) % Basophils % (Manual) % Metamyelocytes % (Man) % Myelocytes % (Man) % Neutrophils # (Manual) (1.4-6.5) K/uL Total Absolute Neuts (1.4-6.5) K/uL Lymphocytes # (Manual) (1.2-3.4) K/uL Total Abs Lymphocytes (1.2-3.4) K/uL Monocytes # (Manual) (0.11-0.59) K/uL Eosinophils # (Manual) (0-0.5) K/uL Basophils # (Manual) (0-0.2) K/uL Metamyelocytes # (Man) (0-0) K/uL Myelocytes # (Manual) (0-0) K/uL Polychromasia Anisocytosis Sodium 129 L (136-145) mmol/L Potassium 4.2 (3.5-5.1) mmol/L Chloride 99 (98-107) mmol/L Carbon Dioxide 25 (21-32) mmol/L Anion Gap 5 (3-11) BUN 25 H (6-23) mg/dl Creatinine 0.65 (0.6-1.2) mg/dl Est Cr Clr Drug Dosing 46.1 ml/min Est GFR ( Amer) 93.2 ml/min Est GFR (Non-Af Amer) 80.4 ml/min BUN/Creatinine Ratio 38.5 H (10-20) Glucose 93 (70-99(Fasting)) mg/dl Osmolality (280-300) mOsm/kg Lactate 1.3 (0.4-2.0) mmol/L Calcium 8.1 L (8.5-10.1) mg/dl Total Bilirubin 1.1 H (0.2-1.0) mg/dl AST 18 (13-39) U/L ALT 15 (7-52) U/L Alkaline Phosphatase 61 (34-104) U/L Troponin I 0.05 H* (0-0.04) ng/ml Total Protein 5.3 L (6.0-8.3) gm/dl Albumin 3.0 L (3.4-5.0) gm/dl Globulin 2.3 L (2.5-4.0) gm/dl Albumin/Globulin Ratio 1.3 (0.9-2) Lipase 12 (11-82) U/L TSH (0.300-4.500) uIu/ml Free T4 (0.61-1.60) ng/dl Urine Color Urine Appearance (Clear) Urine pH (4.5-7.5) Ur Specific [place] (1.000-1.030) Urine Protein (Negative) Urine Glucose (UA) (Negative) Urine Ketones (Negative) Urine Blood (Negative) Urine Nitrite (Negative) Urine Bilirubin (Negative) Urine Urobilinogen (Negative) Ur Leukocyte Esterase (Negative) Urine WBC (Auto) (0-5) /hpf Urine RBC (Auto) (0-4) /hpf U Hyaline Cast (Auto) (0-5) /lpf U Epithel Cells (Auto) (0-5) /lpf Urine Bacteria (Auto) (Negative) Urine Osmolality (500-800) mOsm/kg Ur Random Sodium mmol/L Influ A Molecular Assay (Negative) Influ B Molecular Assay (Negative) SARS-CoV-2, RNA, NAAT NEGATIVE (NEGATIVE) 06/22/21 06/22/21 06/22/21 Range/Units 11:10 11:10 11:10 WBC 21.27 H (4.8-10.8) K/uL RBC 3.25 L (4.2-5.4) M/uL Hgb 11.3 L (12.0-16.0) g/dL Hct 34.8 L (37-47) % MCV 107.1 H (80-100) fL MCH 34.8 H (25-34) pg MCHC 32.5 (32-36) g/dL RDW Std Deviation 103.1 H (36.4-46.3) fL RDW Coeff of Yee 26.5 H (11.5-14.5) % Plt Count 51 L (130-400) K/uL Absolute Nucleated RBC 1.00 H (0-0) K/uL Nucleated RBC % (auto) 4.7 % Neutrophils % (Manual) 73.8 % Lymphocytes % (Manual) 3.5 % Monocytes % (Manual) 12.2 % Eosinophils % (Manual) 0.9 % Basophils % (Manual) 0.9 % Metamyelocytes % (Man) 1.7 % Myelocytes % (Man) 7.0 % Neutrophils # (Manual) 15.70 H (1.4-6.5) K/uL Total Absolute Neuts 15.70 H (1.4-6.5) K/uL Lymphocytes # (Manual) 0.74 L (1.2-3.4) K/uL Total Abs Lymphocytes 0.74 L (1.2-3.4) K/uL Monocytes # (Manual) 2.59 H (0.11-0.59) K/uL Eosinophils # (Manual) 0.19 (0-0.5) K/uL Basophils # (Manual) 0.19 (0-0.2) K/uL Metamyelocytes # (Man) 0.36 H (0-0) K/uL Myelocytes # (Manual) 1.49 H (0-0) K/uL Polychromasia 1+ Anisocytosis Present Sodium (136-145) mmol/L Potassium (3.5-5.1) mmol/L Chloride (98-107) mmol/L Carbon Dioxide (21-32) mmol/L Anion Gap (3-11) BUN (6-23) mg/dl Creatinine (0.6-1.2) mg/dl Est Cr Clr Drug Dosing ml/min Est GFR ( Amer) ml/min Est GFR (Non-Af Amer) ml/min BUN/Creatinine Ratio (10-20) Glucose (70-99(Fasting)) mg/dl Osmolality 281 (280-300) mOsm/kg Lactate (0.4-2.0) mmol/L Calcium (8.5-10.1) mg/dl Total Bilirubin (0.2-1.0) mg/dl AST (13-39) U/L ALT (7-52) U/L Alkaline Phosphatase (34-104) U/L Troponin I (0-0.04) ng/ml Total Protein (6.0-8.3) gm/dl Albumin (3.4-5.0) gm/dl Globulin (2.5-4.0) gm/dl Albumin/Globulin Ratio (0.9-2) Lipase (11-82) U/L TSH 5.351 H (0.300-4.500) uIu/ml Free T4 0.94 (0.61-1.60) ng/dl Urine Color Urine Appearance (Clear) Urine pH (4.5-7.5) Ur Specific [place] (1.000-1.030) Urine Protein (Negative) Urine Glucose (UA) (Negative) Urine Ketones (Negative) Urine Blood (Negative) Urine Nitrite (Negative) Urine Bilirubin (Negative) Urine Urobilinogen (Negative) Ur Leukocyte Esterase (Negative) Urine WBC (Auto) (0-5) /hpf Urine RBC (Auto) (0-4) /hpf U Hyaline Cast (Auto) (0-5) /lpf U Epithel Cells (Auto) (0-5) /lpf Urine Bacteria (Auto) (Negative) Urine Osmolality (500-800) mOsm/kg Ur Random Sodium mmol/L Influ A Molecular Assay (Negative) Influ B Molecular Assay (Negative) SARS-CoV-2, RNA, NAAT (NEGATIVE) 06/22/21 06/22/21 06/22/21 Range/Units 11:37 11:49 11:49 WBC (4.8-10.8) K/uL RBC (4.2-5.4) M/uL Hgb (12.0-16.0) g/dL Hct (37-47) % MCV (80-100) fL MCH (25-34) pg MCHC (32-36) g/dL RDW Std Deviation (36.4-46.3) fL RDW Coeff of Yee (11.5-14.5) % Plt Count (130-400) K/uL Absolute Nucleated RBC (0-0) K/uL Nucleated RBC % (auto) % Neutrophils % (Manual) % Lymphocytes % (Manual) % Monocytes % (Manual) % Eosinophils % (Manual) % Basophils % (Manual) % Metamyelocytes % (Man) % Myelocytes % (Man) % Neutrophils # (Manual) (1.4-6.5) K/uL Total Absolute Neuts (1.4-6.5) K/uL Lymphocytes # (Manual) (1.2-3.4) K/uL Total Abs Lymphocytes (1.2-3.4) K/uL Monocytes # (Manual) (0.11-0.59) K/uL Eosinophils # (Manual) (0-0.5) K/uL Basophils # (Manual) (0-0.2) K/uL Metamyelocytes # (Man) (0-0) K/uL Myelocytes # (Manual) (0-0) K/uL Polychromasia Anisocytosis Sodium (136-145) mmol/L Potassium (3.5-5.1) mmol/L Chloride (98-107) mmol/L Carbon Dioxide (21-32) mmol/L Anion Gap (3-11) BUN (6-23) mg/dl Creatinine (0.6-1.2) mg/dl Est Cr Clr Drug Dosing ml/min Est GFR ( Amer) ml/min Est GFR (Non-Af Amer) ml/min BUN/Creatinine Ratio (10-20) Glucose (70-99(Fasting)) mg/dl Osmolality (280-300) mOsm/kg Lactate (0.4-2.0) mmol/L Calcium (8.5-10.1) mg/dl Total Bilirubin (0.2-1.0) mg/dl AST (13-39) U/L ALT (7-52) U/L Alkaline Phosphatase (34-104) U/L Troponin I (0-0.04) ng/ml Total Protein (6.0-8.3) gm/dl Albumin (3.4-5.0) gm/dl Globulin (2.5-4.0) gm/dl Albumin/Globulin Ratio (0.9-2) Lipase (11-82) U/L TSH (0.300-4.500) uIu/ml Free T4 (0.61-1.60) ng/dl Urine Color Yellow Urine Appearance Clear (Clear) Urine pH 8.5 H (4.5-7.5) Ur Specific [place] 1.016 (1.000-1.030) Urine Protein Negative (Negative) Urine Glucose (UA) Negative (Negative) Urine Ketones Negative (Negative) Urine Blood Negative (Negative) Urine Nitrite Negative (Negative) Urine Bilirubin Negative (Negative) Urine Urobilinogen Negative (Negative) Ur Leukocyte Esterase Trace H (Negative) Urine WBC (Auto) 1-5 (0-5) /hpf Urine RBC (Auto) 0-4 (0-4) /hpf U Hyaline Cast (Auto) 1-5 (0-5) /lpf U Epithel Cells (Auto) 10-20 H (0-5) /lpf Urine Bacteria (Auto) Negative (Negative) Urine Osmolality 484 L (500-800) mOsm/kg Ur Random Sodium mmol/L Influ A Molecular Assay Negative (Negative) Influ B Molecular Assay Negative (Negative) SARS-CoV-2, RNA, NAAT (NEGATIVE) 06/22/21 Range/Units 11:49 WBC (4.8-10.8) K/uL RBC (4.2-5.4) M/uL Hgb (12.0-16.0) g/dL Hct (37-47) % MCV (80-100) fL MCH (25-34) pg MCHC (32-36) g/dL RDW Std Deviation (36.4-46.3) fL RDW Coeff of Yee (11.5-14.5) % Plt Count (130-400) K/uL Absolute Nucleated RBC (0-0) K/uL Nucleated RBC % (auto) % Neutrophils % (Manual) % Lymphocytes % (Manual) % Monocytes % (Manual) % Eosinophils % (Manual) % Basophils % (Manual) % Metamyelocytes % (Man) % Myelocytes % (Man) % Neutrophils # (Manual) (1.4-6.5) K/uL Total Absolute Neuts (1.4-6.5) K/uL Lymphocytes # (Manual) (1.2-3.4) K/uL Total Abs Lymphocytes (1.2-3.4) K/uL Monocytes # (Manual) (0.11-0.59) K/uL Eosinophils # (Manual) (0-0.5) K/uL Basophils # (Manual) (0-0.2) K/uL Metamyelocytes # (Man) (0-0) K/uL Myelocytes # (Manual) (0-0) K/uL Polychromasia Anisocytosis Sodium (136-145) mmol/L Potassium (3.5-5.1) mmol/L Chloride (98-107) mmol/L Carbon Dioxide (21-32) mmol/L Anion Gap (3-11) BUN (6-23) mg/dl Creatinine (0.6-1.2) mg/dl Est Cr Clr Drug Dosing ml/min Est GFR ( Amer) ml/min Est GFR (Non-Af Amer) ml/min BUN/Creatinine Ratio (10-20) Glucose (70-99(Fasting)) mg/dl Osmolality (280-300) mOsm/kg Lactate (0.4-2.0) mmol/L Calcium (8.5-10.1) mg/dl Total Bilirubin (0.2-1.0) mg/dl AST (13-39) U/L ALT (7-52) U/L Alkaline Phosphatase (34-104) U/L Troponin I (0-0.04) ng/ml Total Protein (6.0-8.3) gm/dl Albumin (3.4-5.0) gm/dl Globulin (2.5-4.0) gm/dl Albumin/Globulin Ratio (0.9-2) Lipase (11-82) U/L TSH (0.300-4.500) uIu/ml Free T4 (0.61-1.60) ng/dl Urine Color Urine Appearance (Clear) Urine pH (4.5-7.5) Ur Specific [place] (1.000-1.030) Urine Protein (Negative) Urine Glucose (UA) (Negative) Urine Ketones (Negative) Urine Blood (Negative) Urine Nitrite (Negative) Urine Bilirubin (Negative) Urine Urobilinogen (Negative) Ur Leukocyte Esterase (Negative) Urine WBC (Auto) (0-5) /hpf Urine RBC (Auto) (0-4) /hpf U Hyaline Cast (Auto) (0-5) /lpf U Epithel Cells (Auto) (0-5) /lpf Urine Bacteria (Auto) (Negative) Urine Osmolality (500-800) mOsm/kg Ur Random Sodium 68 mmol/L Influ A Molecular Assay (Negative) Influ B Molecular Assay (Negative) SARS-CoV-2, RNA, NAAT (NEGATIVE) Administered Medications Acetaminophen (Acetaminophen 325 Mg Tab) 650 mg PO Q4H PRN PRN Reason: Pain or Fever Stop: 07/22/21 14:59 Last Admin: 06/22/21 16:39 Dose: 650 mg Documented by: [id number] Sodium Chloride (Nss) 500 mls @ 80 mls/hr IV .Q6H15M ALEXANDRE Stop: 06/22/21 21:59 Last Admin: 06/22/21 16:41 Dose: 80 mls/hr Documented by: [id number] Discontinued Medications Hydrocortisone Sodium Succinate (Hydrocortisone Sod Succinate 100 Mg/2 Ml Vial) 100 mg IV NOW STA Stop: 06/22/21 13:03 Last Admin: 06/22/21 13:43 Dose: 100 mg Documented by: [id number] Cefepime HCl (Maxipime) 2,000 mg in 20 mls @ 5 mls/min IV NOW STA; Protocol Stop: 06/22/21 10:59 Last Admin: 06/22/21 11:27 Dose: 5 mls/min Documented by: [id number] Sodium Chloride (Nss 1000ml) 500 mls @ 999 mls/hr IV .Q31M ONE Stop: 06/22/21 11:26 Last Infusion: 06/22/21 11:58 Dose: 0 mls/hr Documented by: [id number] Admin: 06/22/21 11:27 Dose: 999 mls/hr Documented by: [id number] Ioversol (Optiray 320 100ml) 94 ml IV ONCE ONE Stop: 06/22/21 12:24 Last Admin: 06/22/21 12:24 Dose: 94 ml Documented by: [id number] Miscellaneous Information (Consult Pharmacy) 1 ea N/A NOW STA Stop: 06/22/21 13:50 Last Admin: 06/22/21 16:41 Dose: Not Given Documented by: [id number] Ondansetron HCl (Ondansetron Inj 2 Mg/Ml 2 Ml Vial) 4 mg IV NOW STA Stop: 06/22/21 11:05 Last Admin: 06/22/21 11:27 Dose: 4 mg Documented by: [id number] Imaging Data Radiologist's Impression: Abdomen/Pelvis CT 06/22/21 10:56 CT abd pelvis IV con only CLINICAL HISTORY: lower abd pain, fever TECHNIQUE: Helical axial images of the abdomen and pelvis were obtained and displayed. Automated dose lowering techniques and/or adjustment according to patient size were utilized for this exam. This exam was performed with intravenous contrast. COMPARISON: None available at the time of this dictation. FINDINGS: Lower chest: Bibasilar atelectasis versus scarring is seen. Liver: Hepatomegaly is seen with the midclavicular line length of 17.7 cm. Gallbladder and biliary tree: Patient is status post cholecystectomy. Physiologic prominence of the biliary ducts is noted. Pancreas: Unremarkable, no focal lesions. Spleen: There is marked splenomegaly, the spleen measures 20.5 cm in craniocaudal dimension. Adrenals: Unremarkable. Kidneys and ureters: Multiple cysts are seen bilaterally. Bladder: Limited evaluation due to underdistention. Reproductive organs: Unremarkable. Bowel: There is a moderate hiatal hernia. Diverticulosis is seen without evidence of diverticulitis. Lymph nodes Retroperitoneal: Unremarkable. Mesenteric: Unremarkable. Pelvic: Unremarkable. Peritoneum: A small amount of free fluid is seen in the pelvis. Vessels: Atherosclerotic calcifications are seen. Abdominal wall: Unremarkable. Bones: Degenerative changes in the visualized spine. IMPRESSION: 1. Redemonstration of moderate splenomegaly and mild hepatomegaly. 2. Small amount of free fluid is seen in the pelvis. No acute abnormalities are seen. ACT 112: Negative or not required by law. Electronically signed by: Pablito Lebron M.D. 06/22/2021 12:55 PM Chest X-Ray 06/22/21 10:57 XR chest 1V portable CLINICAL HISTORY: abd pain. Evaluate lung bases COMPARISON STUDY: 01/22/2021 TECHNIQUE: 1 view of the chest FINDINGS: Single frontal view of the chest demonstrates the cardiomediastinal silhouette to be within normal limits. The lungs are clear of alveolar opacities. There is no evidence for pleural effusion. There is no evidence for vascular congestion. There is no acute osseous pathology. IMPRESSION: 1. No acute cardiopulmonary disease. ACT 112: Negative or not required by law. Electronically signed by: Kendrick Soler M.D. 06/22/2021 11:22 AM Discharge Plan Visit Data Chief Complaint: Abdominal Pain ED Provider: Boyd Davey Discharge Problem: Vomiting, Fever, Leukocytosis, Acute hyponatremia, Diffuse abdominal pain Patient Disposition: Admitted As Inpatient Condition: Fair Discharge Instructions Interventions: ED Discharge Assessment Last Done: 06/22/21 14:31
--- NOTE | 2021-06-22 11:23 | XRay Report ---
XR chest 1V portable CLINICAL HISTORY: abd pain. Evaluate lung bases COMPARISON STUDY: 01/22/2021 TECHNIQUE: 1 view of the chest FINDINGS: Single frontal view of the chest demonstrates the cardiomediastinal silhouette to be within normal li mits. The lungs are clear of alveolar opacities. There is no evidence for pleural effusion. There is no evidence for vascular congestion. There is no acute osseous pathology. IMPRESSION: 1. No acute cardiopulmonary disease. ACT 112: Negative or not required by law. Electronically signed by: Kendrick Soler M.D. 06/22/2021 11:22 AM
[2021-06-22 11:48] LABS: Albumin Globulin Ratio 1.3 (0.9-2); BUN Creatinine Ratio 38.5 (10-20); Bilirubin,Total 1.1 mg/dl (0.2-1.0); Calcium 8.1 mg/dl (8.5-10.1); Creatinine Clr Calc Pharmacy 46.1 ml/min; Est GFR (African American) 93.2 ml/min; Est GFR (Non-African American) 80.4 ml/min; Globulin 2.3 gm/dl (2.5-4.0); Potassium 4.2 mmol/L (3.5-5.1); Total Protein 5.3 gm/dl (6.0-8.3)
[2021-06-22 11:53] LABS: Troponin I 0.05 ng/ml (0-0.04)
[2021-06-22 12:00] LABS: Influenza A virus by PCR Negative (Negative); Influenza B virus by PCR Negative (Negative)
[2021-06-22 12:10] LABS: Hematocrit (blood only) 34.8 % (37-47); Hemoglobin 11.3 g/dL (12.0-16.0); Mean Corpuscular Hemoglobin 34.8 pg (25-34); Mean Corpuscular Hgb Conc 32.5 g/dL (32-36); Mean Corpuscular Volume 107.1 fL (80-100); Nucleated RBC % (auto) 4.7 %; Platelet Count 51 K/uL (130-400); RDW Coefficient of Variation 26.5 % (11.5-14.5); RDW Standard Deviation 103.1 fL (36.4-46.3); Red Blood Count 3.25 M/uL (4.2-5.4); White Blood Count 21.27 K/uL (4.8-10.8)
[2021-06-22 12:11] LABS: ALC (manual) 0.74 K/uL (1.2-3.4); Anisocytosis Present; Basophils # (manual) 0.19 K/uL (0-0.2); Basophils % (manual) 0.9 %; Eosinophils # (manual) 0.19 K/uL (0-0.5); Eosinophils % (manual) 0.9 %; Lymphocytes # (manual) 0.74 K/uL (1.2-3.4); Lymphocytes % (manual) 3.5 %; Metamyelocytes # (manual) 0.36 K/uL (0-0); Metamyelocytes % (manual) 1.7 %; Monocytes # (manual) 2.59 K/uL (0.11-0.59); Monocytes % (manual) 12.2 %; Myelocytes # (manual) 1.49 K/uL (0-0); Neutrophils % (manual) 73.8 %; Polychromasia 1+
[2021-06-22 12:19] LABS: Appearance Urine Clear (Clear); Bacteria Urine Automated Negative (Negative); Bilirubin Urine Negative (Negative); Blood Urine Negative (Negative); Color Urine Yellow; Glucose Urine UA Negative (Negative); Ketones Urine Negative (Negative); Leukocyte Esterase Urine Trace (Negative); Nitrite Urine Negative (Negative); Protein Urine Negative (Negative); RBC Urine Automated 0-4 /hpf (0-4); Specific Gravity Urine 1.016 (1.000-1.030); Urobilinogen Urine Negative (Negative); pH Urine 8.5 (4.5-7.5)
[2021-06-22] MEDS ORDERED: OPTIRAY 320 100ml IV ONE (12:23)
--- NOTE | 2021-06-22 12:57 | CT Scan Report ---
CT abd pelvis IV con only CLINICAL HISTORY: lower abd pain, fever TECHNIQUE: Helical axial images of the abdomen and pelvis were obtained and displayed. Automated dose lowering techniques and/or adjustment according to patient size were utilized for this exam. This e xam was performed with intravenous contrast. COMPARISON: None available at the time of this dictation. FINDINGS: Lower chest: Bibasilar atelectasis versus scarring is seen. Liver: Hepatomegaly is seen with the midclavicular line length of 17.7 cm. Gallbladder and biliary tree: Patient is status post cholecystectomy. Physiologic prominence of the b iliary ducts is noted. Pancreas: Unremarkable, no focal lesions. Spleen: There is marked splenomegaly, the spleen measures 20.5 cm in craniocaudal dimension. Adrenals: Unremarkable. Kidneys and ureters: Multiple cysts are seen bilaterally. Bladder: Limited evaluation due to underdistention. Reproductive organs: Unremarkable. Bowel: There is a moderate hiatal hernia. Diverticulosis is seen without evidence of diverticulitis. Lymph nodes Retroperitoneal: Unremarkable. Mesenteric: Unremarkable. Pelvic: Unremarkable. Peritoneum: A small amount of free fluid is seen in the pelvis. Vessels: Atherosclerotic calcifications are seen. Abdominal wall: Unremarkable. Bones: Degenerative changes in the visualized spine. IMPRESSION: 1. Redemonstration of moderate splenomegaly and mild hepatomegaly. 2. Small amount of free fluid is seen in the pelvis. No acute abnormalities are seen. ACT 112: Negative or not required by law. Electronically signed by: Pablito Lebron M.D. 06/22/2021 12:55 PM
[2021-06-22] MEDS ORDERED: HYDROCORTISONE SOD SUCCINATE 100 MG/2 ML VIAL IV STA (13:02)
--- NOTE | 2021-06-22 13:29 | History & Physical Report ---
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 T 38 C, HR 101, WBC 21.27 meeting SIRs criteria but no clear source of infection on CXR, CT abd/pelvis or UA. Lactate WNL Flu and covid screens negative Possible gastroenteritis although no diarrhea. Will obtain stool culture if possible Nausea and vomiting improved since arrival but endorses 4 episodes of bilious emesis overnight Possible component of adrenal insufficiency given chronic prednisone use and possible infection, for which we will continue stress dose steroids with hydrocortisone CT abd/pelvis with re-demonstration of moderate splenomegaly in setting of known primary myelofibrosis Continue empiric Cefepime, MRSA swab pending, follow blood cultures, supportive care (3) Mucous membrane pemphigoid: (4) Chronic use of steroids: Plan: Follows with Dr. 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 Serum and urine osm pending, follow. Daily BMP (6) Primary myelofibrosis: Plan: Follows with Dr. Zhou, unified communications engineer up in [place] through the [facility] Oncology consulted during previous Jan 2021 admission with similar presentation, during which Dr. Mckinley recommended supportive care, monitoring platelets (7) History of ovarian cancer: Plan: Remote hx over 10 years ago, s/p FREIDA/BSO and chemotherapy (8) Thrombocytopenia: Plan: Plt of 51 - continue monitoring with daily CBC (9) Hypothyroidism: Plan: Continue Synthroid. TSH with reflex T4 added to ED labs - pending DVT Ppx: SCDs given thrombocytopenia Code status: DNR PCP: Renea Dispo: Admitted to PCU Patient seen in collaboration with Dr. Wise. Please see addendum. 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 Has vomited 4 times in the past 24 hours. Also noted to be febrile starting yesterday. Was given Tylenol this morning with temp of 38 C upon arrival. Endorses abdominal discomfort in left lower quadrant that has been present intermittently over past 6 months. Daughter came over this morning to find patient disoriented and speaking to family members who were not at bedside. Patient no longer confused a few hours later and back to cognitive baseline. Lives alone and manages medications independently. Uses walker as needed. Follows with Dr. 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 No recent known sick contacts. Denies lightheadedness, congestion, sore throat, CP, SOB, dysuria, diarrhea or constipation. Of note, patient was admitted this past January with similar presentation meeting SIRs criteria but no source was identified on urine or blood culture or bio fire. Thought there was a possible component of adrenal insufficiency contributing to symptoms at that time. Allergies Allergy/AdvReac Type Severity Reaction Status Date / Time naproxen Allergy Mild RASH Verified 06/22/21 11:47 niacin Allergy Mild RASH Verified 06/22/21 11:47 Home Medications Medication Instructions Recorded Confirmed Type dorzolamide 2 %-timolol 0.5 % (PF) 1 drp OPB BID 05/24/19 06/22/21 History eye drops doxepin 10 mg capsule 10 mg PO HS 05/24/19 06/22/21 History levothyroxine 75 mcg tablet 75 mcg PO DAILYBB 05/24/19 06/22/21 History mycophenolate mofetil 500 mg tablet 500 mg PO DAILY 10/29/20 06/22/21 History omeprazole 20 mg capsule,delayed 20 mg PO DAILYBB 10/29/20 06/22/21 History release prednisone 10 mg tablet 5 mg PO QDB 01/24/21 06/22/21 History cyanocobalamin (vitamin B-12) 100 100 mcg PO DAILY 06/22/21 06/22/21 History mcg tablet ferrous sulfate 325 mg (65 mg 325 mg PO DAILY 06/22/21 06/22/21 History iron) tablet (FeroSul) Past Med/Surg History Medical History Chronic use of steroids Glaucoma Hiatal hernia Hyperlipidemia Diet controlled Hyperparathyroidism 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 Zhou in [place] (oncologist) Thrombocytopenia Surgical History History of bowel resection FOR PERFORATION WITH COLOSTOMY History of cholecystectomy History of colonoscopy History of colostomy reversal History of hysterectomy TOTAL History of lithotripsy Hx of bilateral cataract extraction Hx of cystoscopy Previous back surgery LOWER BACK-NO METAL IMPLANTED S/P debridement OF STOMA SITE S/P thyroidectomy FOR GOITER Family History Father CHF (congestive heart failure) Mother Hypertension Social History Smoking Status: Former smoker Smoking End Date: quit 40 years ago; Second Hand Exposure: No; Do You Dip or Chew Tobacco: No; Tobacco Cessation Education Requested by Patient: No Hx Alcohol Use: No Hx Substance Use: No Preferred Language: Syriac Communication Ability: Effective Power Tool Repairer Required: No Beliefs That Will Affect Care: None Current Living Situation: Alone Current Living Situation Comment: lives at [facility] How many Children do You have: 2 Other Information That Helps Us Care for You: No Feels Safe at Home: Yes Assistive Devices: Denture - Upper, Denture - Lower, Glasses and Hearing Aid - Bilateral Review of Systems 2 Review of Systems: At least ten systems reviewed and negative except as noted in the HPI. Physical Exam Physical Exam: General Appearance: WD/WN, vitals as above, NAD, frail elderly woman lying in bed, pleasant, conversing easily Head: normocephalic, atraumatic Eyes: normal inspection, PERRL, conjunctivae normal, anicteric sclerae ENT: external ear and nose normal, oropharynx normal Neck: normal visual inspection, trachea midline, no thyromegaly Respiratory: normal respiratory effort, lungs clear to auscultation, no wheeze, rales, rhonchi. No accessory muscle use Cardiovascular: regular rate, rhythm, no murmur, normal peripheral pulses. Vessels: no JVD Chest: normal inspection of chest Abdomen/GI: normal bowel sounds, soft, TTP in LLQ with deep palpation, no hepatosplenomegaly Extremities/Musculoskeletal: no cyanosis or clubbing, extremities motor strength 5/5. RLE lymphedema (chronic) Neurologic: PERRL, EOMI, accommodation nl, no face palsy, no dysarthria, CN's II-XI intact bilaterally and moves all extremities Psychiatric: A+Ox3, euthymic affect Skin: no rashes, normal color, warm/dry Results & Data Results & [facility] ([facility]) Vital Signs (Past 12 Hours) Vital Signs Temp Pulse Resp BP Pulse Ox 06/22/21 12:31 98 H 16 111/47 L 96 06/22/21 12:30 96 H 06/22/21 12:00 93 H 23 93 06/22/21 11:48 96 H 20 116/48 L 94 06/22/21 11:30 95 H 20 06/22/21 11:00 96 H 24 95 06/22/21 10:49 38.0 C H 102 H 20 114/57 L 95 06/22/21 10:46 101 H 13 95 Laboratory Results Short CBC 06/22/21 Range/Units 11:10 WBC 21.27 H (4.8-10.8) K/uL Hgb 11.3 L (12.0-16.0) g/dL Hct 34.8 L (37-47) % Plt Count 51 L (130-400) K/uL BMP 06/22/21 11:10 Sodium 129 L Potassium 4.2 Chloride 99 Carbon Dioxide 25 BUN 25 H Creatinine 0.65 Glucose 93 Calcium 8.1 L Cardiac Enzymes 06/22/21 Range/Units 11:10 Troponin I 0.05 H* (0-0.04) ng/ml Liver Function 06/22/21 Range/Units 11:10 Total Bilirubin 1.1 H (0.2-1.0) mg/dl AST 18 (13-39) U/L ALT 15 (7-52) U/L Alkaline Phosphatase 61 (34-104) U/L Albumin 3.0 L (3.4-5.0) gm/dl Urine 06/22/21 Range/Units 11:49 Urine Color Yellow Urine Appearance Clear (Clear) Urine pH 8.5 H (4.5-7.5) Ur Specific [place] 1.016 (1.000-1.030) Urine Protein Negative (Negative) Urine Glucose (UA) Negative (Negative) Diagnostic Findings Abdomen/Pelvis CT 06/22/21 10:56 CT abd pelvis IV con only CLINICAL HISTORY: lower abd pain, fever TECHNIQUE: Helical axial images of the abdomen and pelvis were obtained and displayed. Automated dose lowering techniques and/or adjustment according to patient size were utilized for this exam. This exam was performed with intravenous contrast. COMPARISON: None available at the time of this dictation. FINDINGS: Lower chest: Bibasilar atelectasis versus scarring is seen. Liver: Hepatomegaly is seen with the midclavicular line length of 17.7 cm. Gallbladder and biliary tree: Patient is status post cholecystectomy. Physiologic prominence of the biliary ducts is noted. Pancreas: Unremarkable, no focal lesions. Spleen: There is marked splenomegaly, the spleen measures 20.5 cm in craniocaudal dimension. Adrenals: Unremarkable. Kidneys and ureters: Multiple cysts are seen bilaterally. Bladder: Limited evaluation due to underdistention. Reproductive organs: Unremarkable. Bowel: There is a moderate hiatal hernia. Diverticulosis is seen without evidence of diverticulitis. Lymph nodes Retroperitoneal: Unremarkable. Mesenteric: Unremarkable. Pelvic: Unremarkable. Peritoneum: A small amount of free fluid is seen in the pelvis. Vessels: Atherosclerotic calcifications are seen. Abdominal wall: Unremarkable. Bones: Degenerative changes in the visualized spine. IMPRESSION: 1. Redemonstration of moderate splenomegaly and mild hepatomegaly. 2. Small amount of free fluid is seen in the pelvis. No acute abnormalities are seen. ACT 112: Negative or not required by law. Electronically signed by: Pablito Lebron M.D. 06/22/2021 12:55 PM Chest X-Ray 06/22/21 10:57 XR chest 1V portable CLINICAL HISTORY: abd pain. Evaluate lung bases COMPARISON STUDY: 01/22/2021 TECHNIQUE: 1 view of the chest FINDINGS: Single frontal view of the chest demonstrates the cardiomediastinal silhouette to be within normal limits. The lungs are clear of alveolar opacities. There is no evidence for pleural effusion. There is no evidence for vascular congestion. There is no acute osseous pathology. IMPRESSION: 1. No acute cardiopulmonary disease. ACT 112: Negative or not required by law. Electronically signed by: Kendrick Soler M.D. 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 Per patient's daughter who was present at bedside, patient was confused in the morning but better by the time she presented. Yesterday patient had a best day and was feeling very good, after eating poultry kept in refrigerator for 3 days patient started feeling nauseous and " gassy" but went to sleep and woke up with multiple vomiting overnight. Patient is Sirs positive at presentation, likely mild acute gastroenteritis, stool study. Blood Culture. Empiric Antibiotic for now. Also possible component of renal insufficiency, continue with hydrocortisone for now, transition to her home steroid. Patient also noted to have sodium level at 129, likely secondary to vomiting. Expect to improve with improvement in her p.o. intake. Upon examination: GENERAL: Alert and oriented x3. NAD, on RA. HEENT: No pallor, no icterus. Pupils equal, round and reactive to light. Oral mucosa moist. NECK: No JVD, no neck masses. HEART: S1 and S2 heard. Regular rate and rhythm. No murmur, no gallop. RESPIRATORY SYSTEM: Normal AP diameter. No accessory muscle use. No wheezing, no crackles. ABDOMEN: Soft, bowel sounds present, nontender, no distention. CENTRAL NERVOUS SYSTEM: No facial droop. Speech is clear. Obeys simple commands. Moves extremities. EXTREMITIES: RLE 2+ edema, LLE no edema, no erythema seen. I have seen and examined the patient and have discussed the case with the provider above. I agree with the assessment and plan as stated.
--- NOTE | 2021-06-22 13:30 | Electrocardiogram Report ---
Test Reason : Blood Pressure : / mmHG Vent. Rate : 101 BPM Atrial Rate : 101 BPM P-R Int : 142 ms QRS Dur : 080 ms QT Int : 326 ms P-R-T Axes : 059 -43 032 degrees QTc Int : 422 ms Sinus tachycardia Left axis deviation Minimal voltage criteria for LVH, may be normal variant Anterior infarct , age undetermined Abnormal ECG When compared with ECG of 24-JAN-2021 17:56, Premature ventricular complexes are no longer Present Anterior infarct is now Present Confirmed by Kwame Dick ([id number]) on 06/22/2021 1:29:37 PM Referred By: ED Confirmed By:Kwame Dick
[2021-06-22] MEDS ORDERED: CONSULT PHARMACY STA (13:49)
[2021-06-22 14:42] LABS: Thyroid Stimulating Hormone 5.351 uIu/ml (0.300-4.500)
[2021-06-22] MEDS ORDERED: ONDANSETRON INJ 2 MG/ML 2 ML VIAL IV PRN (15:00)
[2021-06-22] MEDS ORDERED: POLYETHYLENE (MIRALAX) 17 GM PACK PO PRN (15:00)
[2021-06-22 15:18] LABS: T4 Free Thyroxine 0.94 ng/dl (0.61-1.60)
[2021-06-22] MEDS ORDERED: SODIUM CHLORIDE 0.9% 500 ML IV SCH (15:45)
[2021-06-22] MEDS: ACETAMINOPHEN 325 MG TAB PO PRN (16:39)
[2021-06-22] MEDS: HYDROCORTISONE SOD 50 MG in SYRINGE 0 ML IV SCH (18:04)
[2021-06-22] MEDS: DORZOLAMIDE/TIMOLOL 22.3/6.8MG/ML 10 ML BTL OP SCH (21:00)
[2021-06-22] MEDS: CEFEPIME 2,000 MG in SYRINGE 0 ML IV SCH (21:00)
[2021-06-22] MEDS ORDERED: HYDROCORTISONE SOD 50 MG in SYRINGE 0 ML IV SCH (21:00)
[2021-06-22] MEDS: DOXEPIN HCL 10 MG CAPSULE PO SCH (21:00)
[2021-06-23] MEDS: HYDROCORTISONE SOD 50 MG in SYRINGE 0 ML IV SCH ×2 (05:33→17:10)
[2021-06-23] MEDS: LEVOTHYROXINE SODIUM 75 MCG TABLET PO SCH (05:33)
[2021-06-23] MEDS ORDERED: PANTOprazole 40 MG TAB PO SCH ×2 (06:30)
[2021-06-23 07:30] LABS: Hematocrit (blood only) 30.7 % (37-47); Hemoglobin 9.9 g/dL (12.0-16.0); Mean Corpuscular Hemoglobin 34.9 pg (25-34); Mean Corpuscular Hgb Conc 32.2 g/dL (32-36); Mean Corpuscular Volume 108.1 fL (80-100); Nucleated RBC # (auto) 0.32 K/uL (0-0); Nucleated RBC % (auto) 1.7 %; Platelet Count 50 K/uL (130-400); Platelet Estimate Decreased (Normal); RDW Standard Deviation 105.1 fL (36.4-46.3); Red Blood Count 2.84 M/uL (4.2-5.4); White Blood Count 18.27 K/uL (4.8-10.8)
[2021-06-23 07:37] LABS: Albumin Globulin Ratio 1.3 (0.9-2); Albumin Level 2.7 gm/dl (3.4-5.0); BUN Creatinine Ratio 41.9 (10-20); Bilirubin,Total 0.8 mg/dl (0.2-1.0); Calcium 7.6 mg/dl (8.5-10.1); Creatinine Clr Calc Pharmacy 47.6 ml/min; Est GFR (African American) 94.6 ml/min; Est GFR (Non-African American) 81.6 ml/min; Globulin 2.1 gm/dl (2.5-4.0); Total Protein 4.8 gm/dl (6.0-8.3)
[2021-06-23] MEDS: MYCOPHENOLATE MOFETIL 250 MG CAP PO SCH (08:14)
[2021-06-23] MEDS: DORZOLAMIDE/TIMOLOL 22.3/6.8MG/ML 10 ML BTL OP SCH ×2 (08:14→20:35)
[2021-06-23] MEDS: FERROUS SULFATE 325 MG TAB PO SCH (08:15)
[2021-06-23] MEDS: CYANOCOBALAMIN (B-12) 100 MCG TABLET PO SCH (08:15)
--- NOTE | 2021-06-23 10:08 | Hospitalist Progress Note ---
Date of Service June 23, 2021 Assessment & Plan (1) SIRS (systemic inflammatory response syndrome): (2) Nausea & vomiting: Plan: per Dr. 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 T 38 C, HR 101, WBC 21.27 meeting SIRs criteria but no clear source of infection on CXR, CT abd/pelvis or UA. Lactate WNL Flu and covid screens negative Possible gastroenteritis although no diarrhea. Will obtain stool culture if possible Nausea and vomiting improved since arrival but endorses 4 episodes of bilious emesis overnight Possible component of adrenal insufficiency given chronic prednisone use and possible infection, for which we will continue stress dose steroids with hydrocortisone CT abd/pelvis with re-demonstration of moderate splenomegaly in setting of known primary myelofibrosis Continue empiric Cefepime, MRSA swab pending, follow blood cultures, supportive care 06/23/21 afebrile since yesterday GI symptoms resolving Stool studies: (+) Norovirus Blood culture: pending continue gentle IV fluids continue empiric Cefepime Day 2 (3) Mucous membrane pemphigoid: (4) Chronic use of steroids: Plan: Follows with Dr. 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 Serum and urine osm pending, follow. Daily BMP Na 130 likely SIADH from vomiting monitor (6) Primary myelofibrosis: Plan: Follows with Dr. Zhou, access services assistant up in [place] through the [facility] Oncology consulted during previous Jan 2021 admission with similar presentation, during which Dr. Mckinley recommended supportive care, monitoring platelets WBC 18k stable from previous CBCs Hg 9.9 stable Plt 50k no signs of bleeding (7) History of ovarian cancer: Plan: Remote hx over 10 years ago, s/p FREIDA/BSO and chemotherapy (8) Thrombocytopenia: Plan: Plt of 51 stable no signs of bleeding (9) Hypothyroidism: Plan: Continue Synthroid TSH- 5.3 Free T4- 0.94 DVT Ppx: SCDs given thrombocytopenia Code status: DNR PCP: Renea Dispo: Admitted to PCU Admission and Anticipated Discharge Date Admission Date: June 22, 2021 Subjective ff up for SIRS, vomiting, abdominal discomfort, etc seen resting in bed, comfortable oriented x 3, answers questions appropriately states she feels better today overall vomiting, abdominal discomfort resolved would like diet to be advanced no chest pain, dyspnea, palpitations, dizziness no cough no problems with urination no other symptoms Review of Systems Review of Systems: all noted and negative except for above Physical Exam Physical Exam: General- oriented x 3, not in distress, speaks in sentences with no effort or accessory muscle use Eyes- anicteric Neck- no JVD Lungs- clear breath sounds bilaterally, no rales/wheezes Heart- normal rate, regular rhythm; no murmurs Abdomen- normal bowel sounds, nondistended, soft, nontender Extremities- no pretibial edema, no calf tenderness Neuro- alert, oriented x 3; no gross focal neurologic deficits Skin- warm & dry Results & Data Results & Data ([facility]) Vital Signs (Past 12 Hours) Vital Signs Temp Pulse Pulse Resp BP Pulse Ox 06/23/21 07:46 36.4 C L 85 18 120/45 L 97 06/23/21 05:20 36.9 C 84 14 129/50 L 96 06/23/21 00:15 72 06/22/21 23:39 36.5 C 69 18 109/45 L 97 all noted and reviewed including below
[2021-06-23 10:19] LABS: Adenovirus F 40/41 PCR Not Detected (NotDetected); Astrovirus PCR Not Detected (NotDetected); Campylobacter PCR Not Detected (NotDetected); Clostridium diff Toxin A/B PCR Not Detected (NotDetected); Cryptosporidium PCR Not Detected (NotDetected); Cyclospora cayetanensis PCR Not Detected (NotDetected); Entamoeba histolytica PCR Not Detected (NotDetected); Enteroaggregative E.coli(EAEC) Not Detected (NotDetected); Enteropathogenic E.coli (EPEC) Not Detected (NotDetected); Enterotoxigenic E.coli (ETEC) Not Detected (NotDetected); Giardia lamblia PCR Not Detected (NotDetected); Plesiomonas shigelloides PCR Not Detected (NotDetected); Rotavirus A PCR Not Detected (NotDetected); Salmonella PCR Not Detected (NotDetected); Sapovirus PCR Not Detected (NotDetected); Shiga-like Toxin E.coli (STEC) Not Detected (NotDetected); Shigella/Enteroinvasive E.coli Not Detected (NotDetected); Vibrio cholerae PCR Not Detected (NotDetected); Vibrio species PCR Not Detected (NotDetected); Yersinia enterocolitica PCR Not Detected (NotDetected)
[2021-06-23 10:55] LABS: Norovirus GI/GII PCR DETECTED (NotDetected)
[2021-06-23] MEDS: CEFEPIME 2,000 MG in SYRINGE 0 ML IV SCH ×2 (11:26→23:03)
[2021-06-23] MEDS ORDERED: SODIUM CHLORIDE 0.9% 1000ML 1,000 ML IV SCH (11:45)
[2021-06-23] MEDS: ACETAMINOPHEN 325 MG TAB PO PRN (14:07)
--- NOTE | 2021-06-23 16:24 | Electrocardiogram Report ---
Test Reason : Blood Pressure : / mmHG Vent. Rate : 074 BPM Atrial Rate : 074 BPM P-R Int : 160 ms QRS Dur : 078 ms QT Int : 392 ms P-R-T Axes : 060 -25 033 degrees QTc Int : 435 ms Normal sinus rhythm Normal ECG When compared with ECG of 22-JUN-2021 10:45, Criteria for Anterior infarct are no longer Present Confirmed by Kwame Dick ([id number]) on 06/23/2021 4:24:19 PM Referred By: REFERRED SELF Confirmed By:Kwame Dick
[2021-06-23] MEDS: DOXEPIN HCL 10 MG CAPSULE PO SCH (20:34)
[2021-06-24] MEDS: LEVOTHYROXINE SODIUM 75 MCG TABLET PO SCH (06:19)
[2021-06-24] MEDS: HYDROCORTISONE SOD 50 MG in SYRINGE 0 ML IV SCH (06:19)
[2021-06-24] MEDS: PANTOprazole 40 MG TAB PO SCH (06:19)
[2021-06-24] MEDS ORDERED: predniSONE 5 MG TAB PO SCH (09:00)
[2021-06-24] MEDS: MYCOPHENOLATE MOFETIL 250 MG CAP PO SCH (09:19)
[2021-06-24] MEDS: CYANOCOBALAMIN (B-12) 100 MCG TABLET PO SCH (09:19)
[2021-06-24] MEDS: FERROUS SULFATE 325 MG TAB PO SCH (09:19)
[2021-06-24] MEDS: DORZOLAMIDE/TIMOLOL 22.3/6.8MG/ML 10 ML BTL OP SCH ×2 (09:19→20:54)
[2021-06-24 10:00] LABS: Mean Corpuscular Hgb Conc 32.5 g/dL (32-36); Nucleated RBC # (auto) 0.37 K/uL (0-0); Nucleated RBC % (auto) 1.8 %
[2021-06-24 10:20] LABS: BUN Creatinine Ratio 30.6 (10-20); Calcium 8.6 mg/dl (8.5-10.1); Creatinine Clr Calc Pharmacy 41.6 ml/min; Est GFR (African American) 87.9 ml/min; Est GFR (Non-African American) 75.8 ml/min; Potassium 3.9 mmol/L (3.5-5.1)
[2021-06-24 10:25] LABS: Hematocrit (blood only) 32.6 % (37-47); Hemoglobin 10.6 g/dL (12.0-16.0); Mean Corpuscular Hemoglobin 35.3 pg (25-34); Mean Corpuscular Volume 108.7 fL (80-100); Platelet Count 56 K/uL (130-400); RDW Standard Deviation 105.8 fL (36.4-46.3); White Blood Count 20.24 K/uL (4.8-10.8)
[2021-06-24 10:27] LABS: ALC (manual) 1.42 K/uL (1.2-3.4); ANC (manual) 12.95 K/uL (1.4-6.5); Anisocytosis Present; Basophils # (manual) 0.61 K/uL (0-0.2); Eosinophils # (manual) 0.61 K/uL (0-0.5); Lymphocytes # (manual) 1.42 K/uL (1.2-3.4); Macrocytosis Present; Metamyelocytes # (manual) 0.81 K/uL (0-0); Monocytes # (manual) 1.62 K/uL (0.11-0.59); Myelocytes # (manual) 1.82 K/uL (0-0); Neutrophils # (manual) 12.95 K/uL (1.4-6.5); Ovalocytes 1+; Polychromasia 1+; Tear Drop Cells 1+
--- NOTE | 2021-06-24 12:26 | Hospitalist Progress Note ---
Date of Service June 24, 2021 Assessment & Plan (1) SIRS (systemic inflammatory response syndrome): (2) Nausea & vomiting: Plan: per Dr. 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 T 38 C, HR 101, WBC 21.27 meeting SIRs criteria but no clear source of infection on CXR, CT abd/pelvis or UA. Lactate WNL Flu and covid screens negative Possible gastroenteritis although no diarrhea. Will obtain stool culture if possible Nausea and vomiting improved since arrival but endorses 4 episodes of bilious emesis overnight Possible component of adrenal insufficiency given chronic prednisone use and possible infection, for which we will continue stress dose steroids with hydrocortisone CT abd/pelvis with re-demonstration of moderate splenomegaly in setting of known primary myelofibrosis Continue empiric Cefepime, MRSA swab pending, follow blood cultures, supportive care 06/24/21 afebrile x 2 days GI symptoms resolved Stool studies: (+) Norovirus Blood culture: Negative so far d/c empiric Cefepime monitor if afebrile, d/c home tomorrow (3) Mucous membrane pemphigoid: (4) Chronic use of steroids: Plan: Follows with Dr. 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 resume usual Prednisone 5mg po daily tomorrow (5) Hyponatremia: Plan: Na of 129 (baseline ~ 134). Serum and urine osm pending, follow. Daily BMP improving, Na 132 likely SIADH from vomiting monitor (6) Primary myelofibrosis: Plan: Follows with Dr. Zhou, bush hog operator up in [place] through the [facility] Oncology consulted during previous Jan 2021 admission with similar presentation, during which Dr. Mckinley recommended supportive care, monitoring platelets WBC 20k stable from previous CBCs Hg 9.9 stable Plt 50k no signs of bleeding Plt last Apr-May 80k repeat CBC in 1 week ff up with [employer] Dr. Zhou as outpatient (7) History of ovarian cancer: Plan: Remote hx over 10 years ago, s/p FREIDA/BSO and chemotherapy (8) Thrombocytopenia: Plan: Plt of 51 stable no signs of bleeding (9) Hypothyroidism: Plan: Continue Synthroid TSH- 5.3 Free T4- 0.94 DVT Ppx: SCDs given thrombocytopenia Code status: DNR PCP: Renea Dispo: possible d/c home tomorrow Admission and Anticipated Discharge Date Admission Date: June 22, 2021 Subjective ff up for norovirus infection, etc seen resting in chair, comfortable in good spirits states she continues to feel better no abdominal pain, nausea, diarrhea tolerating diet well no fever/chills no chest pain, dyspnea, palpitations, dizziness no cough no bleeding no other symptoms Review of Systems Review of Systems: all noted and negative except for above Physical Exam Physical Exam: General- oriented x 3, not in distress, speaks in sentences with no effort or accessory muscle use Eyes- anicteric Neck- no JVD Lungs- clear BS bilaterally, no rales/wheezes Heart- normal rate, regular rhythm; no murmurs Abdomen- normal bowel sounds, nondistended, soft, nontender Extremities- RLE: mild edema, no erythema/warmth/tenderness LLE: no pretibial edema, no calf tenderness Neuro- alert, oriented x 3; no gross focal neurologic deficits Skin- warm & dry Results & Data Results & Data ([facility]) Vital Signs (Past 12 Hours) Vital Signs Temp Pulse Pulse Resp BP Pulse Ox 06/24/21 11:21 36.4 C L 74 19 159/60 H 98 06/24/21 07:36 36.9 C 70 18 147/56 H 97 06/24/21 03:57 36.5 C 68 16 118/59 L 97 all noted and reviewed including below
[2021-06-24] MEDS: DOXEPIN HCL 10 MG CAPSULE PO SCH (20:53)
[2021-06-25] MEDS ORDERED: SODIUM CHLORIDE 0.65% NA SOLN 45 ML (OCEAN) PRN (01:39)
[2021-06-25] MEDS: ACETAMINOPHEN 325 MG TAB PO PRN (02:37)
[2021-06-25] MEDS: PANTOprazole 40 MG TAB PO SCH (06:02)
[2021-06-25] MEDS: LEVOTHYROXINE SODIUM 75 MCG TABLET PO SCH (06:02)
[2021-06-25 06:53] LABS: Mean Corpuscular Hgb Conc 31.8 g/dL (32-36); Nucleated RBC # (auto) 0.58 K/uL (0-0); Nucleated RBC % (auto) 3.4 %
[2021-06-25 07:01] LABS: Hemoglobin 10.5 g/dL (12.0-16.0); Mean Corpuscular Hemoglobin 34.7 pg (25-34); Mean Corpuscular Volume 108.9 fL (80-100); RDW Coefficient of Variation 26.9 % (11.5-14.5); RDW Standard Deviation 105.1 fL (36.4-46.3); Red Blood Count 3.03 M/uL (4.2-5.4); White Blood Count 17.05 K/uL (4.8-10.8)
[2021-06-25 07:12] LABS: ALC (manual) 0.75 K/uL (1.2-3.4); ANC (manual) 12.07 K/uL (1.4-6.5); Anisocytosis Present; Basophils # (manual) 0.31 K/uL (0-0.2); Basophils % (manual) 1.8 %; Lymphocytes # (manual) 0.75 K/uL (1.2-3.4); Lymphocytes % (manual) 4.4 %; Metamyelocytes # (manual) 0.75 K/uL (0-0); Metamyelocytes % (manual) 4.4 %; Monocytes % (manual) 3.5 %; Myelocytes # (manual) 2.27 K/uL (0-0); Myelocytes % (manual) 13.3 %; Neutrophils # (manual) 12.07 K/uL (1.4-6.5); Neutrophils % (manual) 70.8 %; Platelet Count 59 K/uL (130-400); Platelet Estimate Decreased (Normal); Polychromasia 1+; Promyelocytes # (manual) 0.31 K/uL (0-0); Promyelocytes % (manual) 1.8 %; Tear Drop Cells 2+
[2021-06-25 07:19] LABS: BUN Creatinine Ratio 26.4 (10-20); Calcium 7.9 mg/dl (8.5-10.1); Creatinine Clr Calc Pharmacy 41.3 ml/min; Est GFR (African American) 87.9 ml/min; Est GFR (Non-African American) 75.8 ml/min; Potassium 3.5 mmol/L (3.5-5.1)
[2021-06-25] MEDS: CYANOCOBALAMIN (B-12) 100 MCG TABLET PO SCH (08:43)
[2021-06-25] MEDS: FERROUS SULFATE 325 MG TAB PO SCH (08:43)
[2021-06-25] MEDS: MYCOPHENOLATE MOFETIL 250 MG CAP PO SCH (08:43)
[2021-06-25] MEDS: DORZOLAMIDE/TIMOLOL 22.3/6.8MG/ML 10 ML BTL OP SCH (08:44)
[2021-06-25] MEDS ORDERED: predniSONE 5 MG TAB PO SCH (09:00)
--- NOTE | 2021-06-25 13:15 | Hospitalist Progress Note ---
Date of Service June 25, 2021 Assessment & Plan (1) SIRS (systemic inflammatory response syndrome): (2) Nausea & vomiting: Plan: per Dr. 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 T 38 C, HR 101, WBC 21.27 meeting SIRs criteria but no clear source of infection on CXR, CT abd/pelvis or UA. Lactate WNL Flu and covid screens negative Possible gastroenteritis although no diarrhea. Will obtain stool culture if possible Nausea and vomiting improved since arrival but endorses 4 episodes of bilious emesis overnight Possible component of adrenal insufficiency given chronic prednisone use and possible infection, for which we will continue stress dose steroids with hydrocortisone CT abd/pelvis with re-demonstration of moderate splenomegaly in setting of known primary myelofibrosis Continue empiric Cefepime, MRSA swab pending, follow blood cultures, supportive care 06/25/21 afebrile x 3 days GI symptoms resolved tolerating diet well Stool studies: (+) Norovirus Blood culture: Negative so far off Cefepime x 24 hours, no fever clinically improved Discharge home today Follow-up with PCP in 1 week (3) Mucous membrane pemphigoid: (4) Chronic use of steroids: Plan: Follows with Dr. 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 Serum and urine osm pending, follow. 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 Zhou, straightening press operator up in [place] through the [facility] Oncology consulted during previous Jan 2021 admission with similar presentation, during which Dr. Mckinley recommended supportive care, monitoring platelets WBC 17k stable from previous CBCs Hg 10.5 stable Plt 59k no signs of bleeding Plt level last Apr-May 80k repeat CBC in 1 week ff up with Home School Liaison Officer Dr. Zhou as outpatient (7) History of ovarian cancer: Plan: Remote hx over 10 years ago, s/p FREIDA/BSO and chemotherapy (8) Thrombocytopenia: Plan: Plt of 59 stable but somewhat lower than baseline levels Could be related to viral infection no signs of bleeding Repeat CBC in 1 week, follow-up closely (9) Hypothyroidism: Plan: Continue Synthroid TSH- 5.3 Free T4- 0.94 DVT Ppx: SCDs given thrombocytopenia Code status: DNR PCP: Renea Dispo: Charge home today Follow-up with PCP in 1 week Follow-up with straightening press operator as scheduled Admission and Anticipated Discharge Date Admission Date: June 22, 2021 Subjective Follow-up for norovirus gastroenteritis, etc. Seen resting in bed, comfortable States she feels much better overall Back to baseline Has some dryness of her nasal passages, no nasal drainage, pain, fevers or chills No abdominal pain, nausea vomiting, tolerating diet well no chest pain, dyspnea, palpitations, dizziness She is ready and would like to be discharged today Review of Systems Review of Systems: all noted and negative except for above Physical Exam Physical Exam: General- oriented x 3, not in distress, speaks in sentences with no effort or accessory muscle use Eyes- anicteric Neck- no JVD Lungs- clear BS BL no rales/wheezing Heart- normal rate, regular rhythm; no murmurs Abdomen- normal bowel sounds, nondistended, soft, nontender Extremities- no pretibial edema, no calf tenderness Neuro- alert, oriented x 3; no gross focal neurologic deficits Skin- warm & dry Results & Data Results & Data ([facility]) Vital Signs (Past 12 Hours) Vital Signs Temp Pulse Pulse Resp BP Pulse Ox 06/25/21 11:47 37.3 C 92 H 21 152/65 H 95 06/25/21 08:00 84 06/25/21 07:56 37.6 C H 101 H 18 152/69 H 95 06/25/21 03:55 36.8 C 85 14 161/59 H 94 all noted and reviewed including below
--- NOTE | 2021-06-25 13:24 | Discharge Summary ---
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 Has vomited 4 times in the past 24 hours. Also noted to be febrile starting yesterday. Was given Tylenol this morning with temp of 38 C upon arrival. Endorses abdominal discomfort in left lower quadrant that has been present intermittently over past 6 months. Daughter came over this morning to find patient disoriented and speaking to family members who were not at bedside. Patient no longer confused a few hours later and back to cognitive baseline. Lives alone and manages medications independently. Uses walker as needed. Follows with Dr. 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 No recent known sick contacts. Denies lightheadedness, congestion, sore throat, CP, SOB, dysuria, diarrhea or constipation. Of note, patient was admitted this past January with similar presentation meeting SIRs criteria but no source was identified on urine or blood culture or bio fire. Thought there was a possible component of adrenal insufficiency contributing to symptoms at that time. Admission Exam (Per Admitting) Constitutional Physical Exam: General Appearance:WD/WN, vitals as above, NAD, frail elderly woman lying in bed, pleasant, conversing easily Head: normocephalic, atraumatic Eyes:normal inspection, PERRL, conjunctivae normal, anicteric sclerae ENT: external ear and nose normal, oropharynx normal Neck: normal visual inspection, trachea midline, no thyromegaly Respiratory:normal respiratory effort, lungs clear to auscultation, no wheeze, rales, rhonchi. No accessory muscle use Cardiovascular: regular rate, rhythm, no murmur, normal peripheral pulses. Vessels: no JVD Chest: normal inspection of chest Abdomen/GI: normal bowel sounds, soft, TTP in LLQ with deep palpation, no hepatosplenomegaly Extremities/Musculoskeletal: no cyanosis or clubbing, extremities motor strength 5/5. RLE lymphedema (chronic) Neurologic: PERRL, EOMI, accommodation nl, no face palsy, no dysarthria, CN's II-XI intact bilaterally and moves all extremities Psychiatric:A+Ox3, euthymic affect Skin: no rashes, normal color, warm/dry Discharge Data Consultations 06/22/21 13:34 ED Decision to Admit Stat Procedures Performed CT abd pelvis IV con only CLINICAL HISTORY: lower abd pain, fever TECHNIQUE: Helical axial images of the abdomen and pelvis were obtained and displayed. Automated dose lowering techniques and/or adjustment according to patient size were utilized for this exam. This exam was performed with intravenous contrast. COMPARISON: None available at the time of this dictation. FINDINGS: Lower chest: Bibasilar atelectasis versus scarring is seen. Liver: Hepatomegaly is seen with the midclavicular line length of 17.7 cm. Gallbladder and biliary tree: Patient is status post cholecystectomy. Physiologic prominence of the biliary ducts is noted. Pancreas: Unremarkable, no focal lesions. Spleen: There is marked splenomegaly, the spleen measures 20.5 cm in craniocaudal dimension. Adrenals: Unremarkable. Kidneys and ureters: Multiple cysts are seen bilaterally. Bladder: Limited evaluation due to underdistention. Reproductive organs: Unremarkable. Bowel: There is a moderate hiatal hernia. Diverticulosis is seen without evidence of diverticulitis. Lymph nodes Retroperitoneal: Unremarkable. Mesenteric: Unremarkable. Pelvic: Unremarkable. Peritoneum: A small amount of free fluid is seen in the pelvis. Vessels: Atherosclerotic calcifications are seen. Abdominal wall: Unremarkable. Bones: Degenerative changes in the visualized spine. IMPRESSION: 1. Redemonstration of moderate splenomegaly and mild hepatomegaly. 2. Small amount of free fluid is seen in the pelvis. No acute abnormalities are seen. ACT 112: Negative or not required by law. XR chest 1V portable CLINICAL HISTORY: abd pain. Evaluate lung bases COMPARISON STUDY: 01/22/2021 TECHNIQUE: 1 view of the chest FINDINGS: Single frontal view of the chest demonstrates the cardiomediastinal silhouette to be within normal limits. The lungs are clear of alveolar opacities. There is no evidence for pleural effusion. There is no evidence for vascular congestion. There is no acute osseous pathology. IMPRESSION: 1. No acute cardiopulmonary disease. ACT 112: Negative or not required by law. Hospital Course (1) SIRS (systemic inflammatory response syndrome): (2) Nausea & vomiting: per Dr. 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 T 38 C, HR 101, WBC 21.27 meeting SIRs criteria but no clear source of infection on CXR, CT abd/pelvis or UA. Lactate WNL Flu and covid screens negative CT abd/pelvis with re-demonstration of moderate splenomegaly in setting of known primary myelofibrosis Given empiric cefepime IV for possible underlying bacterial infection Stool studies: (+) Norovirus Blood culture: Negative so far afebrile x 3 days GI symptoms resolved tolerating diet well off Cefepime x 24 hours, no fever clinically improved Discharge home today Follow-up with PCP in 1 week (3) Mucous membrane pemphigoid: (4) Chronic use of steroids: Follows with Dr. 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 Serum and urine osm pending, follow. 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 Zhou, hose operator up in [place] through the [facility] Oncology consulted during previous Jan 2021 admission with similar presentation, during which Dr. Mckinley recommended supportive care, monitoring platelets WBC 17k stable from previous CBCs Hg 10.5 stable Plt 59k no signs of bleeding Plt level last Apr-May 80k repeat CBC in 1 week ff up with Hedge Fund Principal Dr. Zhou as outpatient (7) History of ovarian cancer: Remote hx over 10 years ago, s/p FREIDA/BSO and chemotherapy (8) Thrombocytopenia: Plt of 59 stable but somewhat lower than baseline levels Could be related to viral infection no signs of bleeding Repeat CBC in 1 week, follow-up closely (9) Hypothyroidism: Continue Synthroid TSH- 5.3 Free T4- 0.94 DVT Ppx: SCDs given thrombocytopenia Dispo: Charge home today Follow-up with PCP in 1 week Follow-up with hose operator as scheduled
--- NOTE | 2021-07-02 10:59 | Coding Query ---
SIRS, SEPSIS The ER documents, "Bacteremia/sepsis is certainly a concern, the source though is unclear", and the H&P documents, "Patient is Sirs positive at presentation, likely mild acute gastroenteritis, stool study. Blood Culture. Empiric Antibiotic for now. Also possible component of renal insufficiency, continue with hydrocortisone for now, transition to her home steroid. Patient also noted to have sodium level at 129, likely secondary to vomiting. Expect to improve with improvement in her p.o. intake", and the Discharge Summary documents SIRS as well as Acute Gastroenteritis, Norovirus Infection and possible underlying bacterial infection and hyponatremia likely SIADH from vomiting. It is not clear if Sepsis was ruled out completely and it is SIRS, or the most likely cause/etiology of it. Your help is needed and greatly appreciated to ensure correct coding. Please specify below, in your clinical opinion. To promote full compliance with coding requirements relating to patient care, physician participation is requested in all cases of muffler installer uncertainty. Please assist us with the question(s) below: In responding to this query, please exercise your independent professional judgement. The fact that a question is asked does not imply that any particular answer is desired or expected. We appreciate your clarification on this issue. Throughout the medical record, you have clearly documented a localized infection and your patient has clinical evidence of a generalized sepsis or severe sepsis. The term urosepsis is a nonspecific entity and is coded as an UTI. If the patient has sepsis, severe sepsis, from an urinary source or some other source, please clarify in your response below. The medical record reflects the following clinical findings: (With dates as appropriate) (Body temperature of >38.3 C(101 F) or <36 C(96.8F), pulse >90/minute, respirations >20/minute, WBC count >12,000 or <4,000, altered mental status, significant edema or positive fluid balance, hyperglycemia without diabetes, hypotension, metabolic acidosis (elev. lactate level, anion gap or reduced blood pH), shock, positive blood culture (enter organism) ____ ( x ) SIRS (Systemic Inflammatory Response Syndrome). Please specify further, the underlying condition: ( ) Adrenal Insufficiency ( x ) Acute Gastroenteritis, Norovirus Infection ( ) possible underlying bacterial infection, unspecified ( ) possible underlying bacterial infection, Other: Please Specify ( ) hyponatremia, likely SIADH from vomiting ( ) Other: Please Specify ( ) Bacteremia (Nonspecific laboratory finding of bacteria in the blood) Specify Organism ( ) Sepsis Specify Organism Specify Associated Condition/Diagnosis ( ) Other, patient has: MTDD
== END 2021-06-25 15:13 | disposition home or self-care (01) | DRG 392 ==
LOC: ED 10:38 → 2E 13:44 → SUATTDRO 13:44 → 2E 14:31
DX: E27.40 Unspecified adrenocortical insufficiency; Z88.6 Allergy status to analgesic agent; Z90.722 Acquired absence of ovaries, bilateral; A49.9 Bacterial infection, unspecified; E89.0 Postprocedural hypothyroidism; Z79.52 Long term (current) use of systemic steroids; Z85.43 Personal history of malignant neoplasm of ovary; Z79.890 Hormone replacement therapy; Z79.899 Other long term (current) drug therapy; Z20.822 Contact with and (suspected) exposure to COVID-19; L12.1 Cicatricial pemphigoid; E22.2 Syndrome of inappropriate secretion of antidiuretic hormone; A08.11 Acute gastroenteropathy due to Norwalk agent; N28.9 Disorder of kidney and ureter, unspecified; H40.9 Unspecified glaucoma; Z66 Do not resuscitate; Z87.891 Personal history of nicotine dependence; Z92.21 Personal history of antineoplastic chemotherapy; D69.59 Other secondary thrombocytopenia; Z90.710 Acquired absence of both cervix and uterus; Z90.79 Acquired absence of other genital organ(s); D47.1 Chronic myeloproliferative disease; Z88.8 Allergy status to other drugs, medicaments and biological substances

== ENCOUNTER 2022-09-19 11:23 | Inpatient (IN) ==
--- NOTE | 2022-09-19 11:32 | Emergency Department Note ---
Impression & Plan Acute pain of left knee, Contusion of left knee, initial encounter, Ambulatory dysfunction ED Provider Note Name: INGA MENDEZ Age: 87 Sex: F Arrives Via: Ambulance Informant: Patient, daughter ED Provider: Tate Osei MD Chief Complaint: Fall Impression: As per impressions above Medical Decision Makin-year-old female tripped and fell going to the bathroom this morning. She landed on her left knee into the amount of pain she was unable to get up after this due to the amount of pain. She actually laid on the ground for couple hours before able to call 911. She has abrasion to the lateral knee but no significant swelling. She does have some tenderness palpation of the posterior left knee and some pain on range of motion. Distal pulse intact. No si gnificant hip tenderness palpation. X-rays of the left knee and femur are unremarkable other than mild left knee effusion. No evidence that this is infectious. Patient is having too much pain with attempts at ambulation. She lives alone uses a walker at home. I do not feel it would be safe to be sending her home. Discussed with daughter who is agreeable to hospitalization for her mother. Patient did have some basic lab work done. Her white blood cell count elevation is consistent with chronic, as is thrombocytopenia and hyponatremia. Prior Medical Record and Triage/Nursing Notes reviewed by Me External chart reviewed by me including previous hospitalization record Differentials:Knee fracture, dislocation, hip fracture, contusion, electrolyte imbalance, anemia, infection amongst many other pathologies considered Vital Signs: reviewed and remarkable for no significant abnormalities Labs:Reviewed and remarkable for number cytopenia, leukocytosis, hyponatremia Imaging:X-rays of the left knee and left femur as per my interpretation no fracture, no dislocation Consults: Faustino Hospitalist Plan: Disposition:Hospitalization. Condition: Good History of Present Illness:87-year-old female arrives for evaluation of knee pain. Patient tripped and fell this morning when rushing to go to the bathroom. She notes immediate left knee pain and abrasion over the left lateral knee. Pain was too severe to walk that she called 911 after a few hours. Took Tylenol earlier this morning. At rest she is not having any pain. It is worse when she walks and notes she cannot bear weight on it. Does not frequently fall. She did not hit her head and has no headache or neck pain. Denies any other injuries. She denies any urinary burning, frequency, fevers, chills, nausea, vomiting, abdominal pain, back pain, chest pain, lightheadedness, shortness of breath or any other concerning signs or symptoms. She has had no recent weakness nor strokelike symptoms. Of note patient was hospitalized about a year ago for hyponatremia in the setting of SIRS. Past History:See Below Home Medications:See Below Allergies:See Below Vitals:Blood Pressure: 130/58, Pulse 84, RR 16, T 36.8C, O2 97% on RA Physical Exam: GENERAL: Patient is elderly/frail appearing and in minimal distress. HEAD: AT/NC EYES: No scleral icterus, unremarkable pupils. NECK: No masses appreciated, nomeningismus, trachea is midline. No cervical midline TTP. RESPIRATORY: No dyspnea. Clear to auscultation and equal bilaterally. No wheeze, no rhonchi. CARDIOVASCULAR: Regular rate and rhythm.No murmurs, rubs, gallops appreciated. GASTROINTESTINAL: Abdomen soft, non-tender, no peritonitis.Bowel sounds positive.No masses appreciated. EXTREMITIES: Mild pain with range of motion of the left knee primarily anteriorly. There is a slight abrasion over the left lateral knee with skin tear. Otherwise normal motion all extremities, no cyanosis. There is edema of the right lower leg patient states this is chronic. There are some peripheral venous stasis disease findings. NEUROLOGIC: Alert and oriented, no focal neurologic deficit appreciated SKIN: No rash, no jaundice, no diaphoresis. PSYCH: Appropriate GCS: 15 ED Course: Times/Reassessments: Stable the patient is unable to bear any weight on the right knee severe pain. 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 Abelardo carrasquillo [place] (oncologist) Thrombocytopenia Surgical History History of bowel resection FOR PERFORATION WITH COLOSTOMY History of cholecystectomy History of colonoscopy History of colostomy reversal History of hysterectomy TOTAL History of lithotripsy Hx of bilateral cataract extraction Hx of cystoscopy Previous back surgery LOWER BACK-NO METAL IMPLANTED S/P debridement OF STOMA SITE S/P thyroidectomy FOR GOITER Family History Father CHF (congestive heart failure) Mother Hypertension Social History Smoking Status: Never smoker Tobacco Type: Cigarettes Second Hand Exposure: No; Do You Dip or Chew Tobacco: No; Hx Alcohol Use: No Hx Substance Use: No Preferred Language: Swedish Communication Ability: Effective [employer] Required: No Beliefs That Will Affect Care: None marital status: / Current Living Situation: Personal Care Facility Current Living Situation Comment: lives at [facility] How many Children do You have: 2 Feels Safe at Home: Yes Assistive Devices: Denture - Upper, Glasses, Hearing Aid - Bilateral and Walker Allergies Allergies Allergy/AdvReac Type Severity Reaction Status Date / Time naproxen Allergy Mild RASH Verified 09/19/22 15:34 niacin Allergy Mild RASH Verified 09/19/22 15:34 Home Meds Home Medications Medication Instructions Recorded Confirmed dorzolamide 2 %-timolol 0.5 % (PF) 1 drp OPB BID 05/24/19 09/19/22 eye drops doxepin 10 mg capsule 10 mg PO HS 05/24/19 09/19/22 mycophenolate mofetil 500 mg tablet 500 mg PO DAILY 10/29/20 09/19/22 omeprazole 20 mg capsule,delayed 20 mg PO DAILYBB 10/29/20 09/19/22 release prednisone 10 mg tablet 10 mg PO DAILY 01/24/21 09/19/22 cyanocobalamin (vitamin B-12) 100 100 mcg PO DAILY 06/22/21 09/19/22 mcg tablet ferrous sulfate 325 mg (65 mg 325 mg PO DAILY 06/22/21 09/19/22 iron) tablet (FeroSul) acetaminophen 500 mg tablet 1,000 mg PO Q6H PRN Pain 09/19/22 09/19/22 (Tylenol Extra Strength) cholecalciferol (vitamin D3) 25 25 mcg PO DAILY 09/19/22 09/19/22 mcg (1,000 unit) tablet (Vitamin D3) levothyroxine 88 mcg tablet 88 mcg PO QAM 09/19/22 09/19/22 triamcinolone acetonide 0.1 % 1 applic mucous membrane TID PRN 09/19/22 09/19/22 dental paste .Sores in mouth Results & Data (ED) Vital Signs Vital Signs - 24 hr 09/19/22 11:30 09/19/22 11:30 09/19/22 14:12 Temperature 36.6 C 36.6 C Temperature Source Oral Oral Pulse Rate 80 Pulse Rate [Apical] 80 78 Pulse Rhythm [Apical] Regular Respiratory Rate 18 18 18 Respiratory Effort / Characteristics Non-Labored Spontaneous Non-Labored Spontaneous Non-Labored Spontaneous Respiratory Depth Normal Normal Normal Respiratory Pattern Regular Regular Regular Blood Pressure 130/58 L Blood Pressure [Right Arm] 130/58 L 128/50 L Blood Pressure Mean 82 Blood Pressure Mean [Right Arm] 82 76 Blood Pressure Position Lying Blood Pressure Position [Right Arm] Lying Lying Pulse Oximetry 97 97 95 Oxygen Delivery Method Room Air Room Air Room Air Sepsis Recent Fever Within 48 Hours No Sepsis New/Unexplained Change in Mental Status No Sepsis Action Taken by Nursing No Action Required Laboratory Data 09/19/22 13:02 09/19/22 13:02 Lab Results 09/19/22 09/19/22 09/19/22 Range/Units 12:51 13:02 13:02 WBC 17.99 H (4.8-10.8) K/ul RBC 2.75 L (4.20-5.40) M/uL Hgb 10.5 L (12.0-16.0) g/dl Hct 30.9 L (37.0-47.0) % MCV 112.4 H (80.0-100.0) fL MCH 38.2 H (25.0-34.0) pg MCHC 34.0 (32.0-36.0) g/dL RDW Std Deviation 107.7 H (36.4-46.3) fL RDW Coeff of Yee 26.5 H (11.5-14.5) % Plt Count 99 L (130-400) K/uL MPV 13.0 H (9.4-12.4) fL Absolute Nucleated RBC 0.16 H (0-0.12) K/uL Nucleated RBC % (auto) 0.9 % Neutrophils % (Manual) 75 % Lymphocytes % (Manual) 8 % Monocytes % (Manual) 8 % Eosinophils % (Manual) 3 % Basophils % (Manual) 2 % Metamyelocytes % (Man) 2 % Myelocytes % (Man) 2 % Promyelocytes % (Man) 1 % Blast Cells % (Manual) 1 % Neutrophils # (Manual) 13.49 H (1.40-6.50) K/uL Total Absolute Neuts 13.49 H (1.4-6.5) K/uL Lymphocytes # (Manual) 1.44 (1.2-3.4) K/uL Total Abs Lymphocytes 1.44 (1.2-3.4) K/uL Monocytes # (Manual) 1.44 H (0.11-0.59) K/uL Eosinophils # (Manual) 0.54 H (0-0.50) K/uL Basophils # (Manual) 0.36 H (0-0.2) K/uL Metamyelocytes # (Man) 0.36 H (0-0) K/uL Myelocytes # (Manual) 0.36 H (0-0) K/uL Promyelocytes # (Man) 0.18 H (0-0) K/uL Blast Cells # (Man) 0.18 H (0-0) K/uL Platelet Estimate Decreased L (Normal) Polychromasia 1+ Poikilocytosis Present Anisocytosis Present Sodium 129 L (136-145) mmol/L Potassium 4.1 (3.5-5.1) mmol/L Chloride 98 (98-107) mmol/L Carbon Dioxide 29 (21-32) mmol/L Anion Gap 2 L (3-11) BUN 17 (6-23) mg/dl Creatinine 0.64 (0.6-1.2) mg/dl Est Cr Clr Drug Dosing 45.4 ml/min Est GFR ( Amer) 93.0 ml/min Est GFR (Non-Af Amer) 80.2 ml/min BUN/Creatinine Ratio 26.6 H (10-20) Glucose 86 (70-99(Fasting)) mg/dl Calcium 9.3 (8.6-10.3) mg/dl Total Creatine Kinase 20 L (26-192) U/L Urine Color Urine Appearance (Clear) Urine pH (4.5-7.5) Ur Specific Roxie (1.000-1.030) Urine Protein (Negative) Urine Glucose (UA) (Negative) Urine Ketones (Negative) Urine Blood (Negative) Urine Nitrite (Negative) Urine Bilirubin (Negative) Urine Urobilinogen (Negative) Ur Leukocyte Esterase (Negative) SARS-CoV-2, RNA, NAAT NEGATIVE (NEGATIVE) 09/19/22 Range/Units 14:38 WBC (4.8-10.8) K/ul RBC (4.20-5.40) M/uL Hgb (12.0-16.0) g/dl Hct (37.0-47.0) % MCV (80.0-100.0) fL MCH (25.0-34.0) pg MCHC (32.0-36.0) g/dL RDW Std Deviation (36.4-46.3) fL RDW Coeff of Yee (11.5-14.5) % Plt Count (130-400) K/uL MPV (9.4-12.4) fL Absolute Nucleated RBC (0-0.12) K/uL Nucleated RBC % (auto) % Neutrophils % (Manual) % Lymphocytes % (Manual) % Monocytes % (Manual) % Eosinophils % (Manual) % Basophils % (Manual) % Metamyelocytes % (Man) % Myelocytes % (Man) % Promyelocytes % (Man) % Blast Cells % (Manual) % Neutrophils # (Manual) (1.40-6.50) K/uL Total Absolute Neuts (1.4-6.5) K/uL Lymphocytes # (Manual) (1.2-3.4) K/uL Total Abs Lymphocytes (1.2-3.4) K/uL Monocytes # (Manual) (0.11-0.59) K/uL Eosinophils # (Manual) (0-0.50) K/uL Basophils # (Manual) (0-0.2) K/uL Metamyelocytes # (Man) (0-0) K/uL Myelocytes # (Manual) (0-0) K/uL Promyelocytes # (Man) (0-0) K/uL Blast Cells # (Man) (0-0) K/uL Platelet Estimate (Normal) Polychromasia Poikilocytosis Anisocytosis Sodium (136-145) mmol/L Potassium (3.5-5.1) mmol/L Chloride (98-107) mmol/L Carbon Dioxide (21-32) mmol/L Anion Gap (3-11) BUN (6-23) mg/dl Creatinine (0.6-1.2) mg/dl Est Cr Clr Drug Dosing ml/min Est GFR ( Amer) ml/min Est GFR (Non-Af Amer) ml/min BUN/Creatinine Ratio (10-20) Glucose (70-99(Fasting)) mg/dl Calcium (8.6-10.3) mg/dl Total Creatine Kinase (26-192) U/L Urine Color Yellow Urine Appearance Clear (Clear) Urine pH 6.5 (4.5-7.5) Ur Specific Roxie 1.007 (1.000-1.030) Urine Protein Negative (Negative) Urine Glucose (UA) Negative (Negative) Urine Ketones Negative (Negative) Urine Blood Negative (Negative) Urine Nitrite Negative (Negative) Urine Bilirubin Negative (Negative) Urine Urobilinogen Negative (Negative) Ur Leukocyte Esterase Negative (Negative) SARS-CoV-2, RNA, NAAT (NEGATIVE) Administered Medications Acetaminophen (Acetaminophen 500 Mg Tab) 1,000 mg PO TID ALEXANDRE Stop: 10/19/22 20:59 Last Admin: 09/20/22 08:18 Dose: 1,000 mg Documented By: Admin: 09/19/22 21:56 Dose: 1,000 mg Documented By: CLAUDIO Bacitracin (Bacitracin Oint 15 Gm Tube) 1 appln EXT DAILY ALEXANDRE Stop: 10/19/22 18:29 Last Admin: 09/20/22 08:18 Dose: 1 appln Documented By: Admin: 09/19/22 18:51 Dose: Not Given Documented By: CS Cyanocobalamin (Cyanocobalamin (B-12) 100 Mcg Tablet) 100 mcg PO DAILY ALEXANDRE Stop: 10/20/22 08:59 Last Admin: 09/20/22 08:16 Dose: 100 mcg Documented By: CS Doxepin HCl (Doxepin Hcl 10 Mg Capsule) 10 mg PO HS ALEXANDRE Stop: 10/19/22 20:59 Last Admin: 09/19/22 21:56 Dose: 10 mg Documented By: CLAUDIO Enoxaparin Sodium (Enoxaparin Inj 40 Mg/0.4 Ml Syr) 40 mg SQ Q24H ALEXANDRE Stop: 10/19/22 18:29 Last Admin: 09/19/22 18:50 Dose: 40 mg Documented By: CS Ferrous Sulfate (Ferrous Sulfate 325 Mg Tab) 325 mg PO DAILY ALEXANDRE Stop: 10/20/22 08:59 Last Admin: 09/20/22 08:17 Dose: 325 mg Documented By: HAYDER Levothyroxine Sodium (Levothyroxine Sodium 88 Mcg Tablet) 88 mcg PO DAILYBB [facility] Stop: 10/20/22 06:29 Last Admin: 09/20/22 05:48 Dose: 88 mcg Documented By: CLAUDIO Miscellaneous (Dorzolamide-Timolol Pf~Order Awaiting Action) 1 each N/A QS ALEXANDRE Stop: 10/20/22 00:00 Last Admin: 09/20/22 08:15 Dose: Not Given Documented By: Admin: 09/20/22 00:02 Dose: Not Given Documented By: CLAUDIO Mycophenolate Mofetil (Mycophenolate Mofetil 250 Mg Cap) 500 mg PO DAILY ALEXANDRE Stop: 10/20/22 08:59 Last Admin: 09/20/22 08:16 Dose: 500 mg Documented By: HAYDER Pantoprazole Sodium (Pantoprazole 40 Mg Tab) 40 mg PO DAILYBB [facility] Stop: 10/20/22 06:29 Last Admin: 09/20/22 05:48 Dose: 40 mg Documented By: CLAUDIO Prednisone (Prednisone 10 Mg Tablet) 10 mg PO DAILY ALEXANDRE Stop: 10/20/22 08:59 Last Admin: 09/20/22 08:15 Dose: 10 mg Documented By: HAYDER Vitamin D (Cholecalciferol 1,000 Units 25 Mcg Tab) 1,000 units PO DAILY ALEXANDRE Stop: 10/20/22 08:59 Last Admin: 09/20/22 08:18 Dose: 1,000 units Documented By: HAYDER Imaging Data Radiologist's Impression: Femur X-Ray 09/19/22 11:29 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 There is no acute fracture, dislocation or avascular necrosis. Arterial calcifications. Mild prepatellar anterior soft tissue swelling. KNEE: Chondrocalcinosis. Mild tricompartmental osteoarthritis. Joint effusion with suprapatellar soft tissue swelling. No definite acute fracture or dislocation. Arterial calcifications. IMPRESSION: 1. No acute fracture or dislocation identified. 2. Joint effusion of the knee with suprapatellar soft tissue swelling. ACT 112: Negative or not required by law. The above report was generated using voice recognition software. It may contain grammatical, syntax or spelling errors. Electronically signed by: Chris Vega M.D. 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 There is no acute fracture, dislocation or avascular necrosis. Arterial calcifications. Mild prepatellar anterior soft tissue swelling. KNEE: Chondrocalcinosis. Mild tricompartmental osteoarthritis. Joint effusion with suprapatellar soft tissue swelling. No definite acute fracture or dislocation. Arterial calcifications. IMPRESSION: 1. No acute fracture or dislocation identified. 2. Joint effusion of the knee with suprapatellar soft tissue swelling. ACT 112: Negative or not required by law. The above report was generated using voice recognition software. It may contain grammatical, syntax or spelling errors. Electronically signed by: Chris Vega M.D. 09/19/2022 12:21 PM Discharge Plan Visit Data Chief Complaint: Fall Stated Complaint: FALL, L KNEE PAIN ED Provider: Tate Osei Discharge Problem: Acute pain of left knee, Contusion of left knee, initial encounter, Ambulatory dysfunction Patient Disposition: Admitted As Inpatient Discharge Instructions Interventions: ED Discharge Assessment Last Done: 09/19/22 18:09
--- NOTE | 2022-09-19 12:22 | XRay Report ---
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 There is no acute fracture, dislocation or a vascular necrosis. Arterial calcifications. Mild prepatellar anterior soft tissue swelling. KNEE: Chondrocalcinosis. Mild tricompartmental osteoarthritis. Joint effusion with suprapatellar soft tissu e swelling. No definite acute fracture or dislocation. Arterial calcifications. IMPRESSION: 1. No acute fracture or dislocation identified. 2. Joint effusion of the knee with suprapatellar soft tissue swelling. ACT 112: Negative or not required by law. The above report was generated using voice recognition software. It may contain grammatical, syntax o r spelling errors. Electronically signed by: Chris Vega M.D. 09/19/2022 12:21 PM
[2022-09-19 13:28] LABS: BUN Creatinine Ratio 26.6 (10-20); Calcium 9.3 mg/dl (8.6-10.3); Creatinine Clr Calc Pharmacy 45.4 ml/min; Est GFR (Non-African American) 80.2 ml/min; Potassium 4.1 mmol/L (3.5-5.1)
[2022-09-19 13:47] LABS: Hematocrit (blood only) 30.9 % (37.0-47.0); Hemoglobin 10.5 g/dl (12.0-16.0); Mean Corpuscular Hemoglobin 38.2 pg (25.0-34.0); Mean Corpuscular Volume 112.4 fL (80.0-100.0); Nucleated RBC # (auto) 0.16 K/uL (0-0.12); Nucleated RBC % (auto) 0.9 %; Platelet Count 99 K/uL (130-400); RDW Coefficient of Variation 26.5 % (11.5-14.5); RDW Standard Deviation 107.7 fL (36.4-46.3); Red Blood Count 2.75 M/uL (4.20-5.40); White Blood Count 17.99 K/ul (4.8-10.8)
[2022-09-19 13:50] LABS: ALC (manual) 1.44 K/uL (1.2-3.4); ANC (manual) 13.49 K/uL (1.4-6.5); Anisocytosis Present; Basophils # (manual) 0.36 K/uL (0-0.2); Basophils % (manual) 2 %; Blast # (manual) 0.18 K/uL (0-0); Blast Cells % (manual) 1 %; Eosinophils # (manual) 0.54 K/uL (0-0.50); Eosinophils % (manual) 3 %; Lymphocytes # (manual) 1.44 K/uL (1.2-3.4); Lymphocytes % (manual) 8 %; Metamyelocytes # (manual) 0.36 K/uL (0-0); Metamyelocytes % (manual) 2 %; Monocytes # (manual) 1.44 K/uL (0.11-0.59); Monocytes % (manual) 8 %; Myelocytes # (manual) 0.36 K/uL (0-0); Myelocytes % (manual) 2 %; Neutrophils # (manual) 13.49 K/uL (1.40-6.50); Neutrophils % (manual) 75 %; Platelet Estimate Decreased (Normal); Poikilocytosis Present; Polychromasia 1+; Promyelocytes # (manual) 0.18 K/uL (0-0); Promyelocytes % (manual) 1 %
--- NOTE | 2022-09-19 14:37 | History & Physical Report ---
Date of Service September 19, 2022 Assessment & Plan (1) Fall: Plan: -Will need PT/OT evaluation -Complains of left knee pain (X ray shows effusion), see below -Also complains of buttock pain. Will obtain pelvis X ray. (2) Effusion, left knee: Plan: -will ask for ortho evaluation for arthrocentesis for pain control (3) Left knee pain: Plan: -acetaminophen 1000mg TID x 3 days. Ice. Elevate extremity. Lidocaine patch (4) Generalized weakness: Plan: -Complains of worsening weakness, low grade temp yesterday. Will obtain CXR and UA to evaluate for occult infection Plan Chronic medical conditions: Chronic leukocytosis, myelofibrosis--WBC elevation within her baseline. Vitamin D deficiency- continue supplement GERD- continue PPI Mucous membrane pemphigoid- continue prednisone 10mg and cellcept Hypothyroidism- continue levothyroxine DVT ppx - SQ lovenox. Patient at increased risk for VTE Code Status. She requests to be DNR/DNI Disposition- Observation, med/surg History of Present Illness Chief Complaint: Left knee pain Primary Care Provider: Ivy Meier MD Ms Milagro Mckoy is a 87 year old female with history of myelofibrosis and essential thrombocytosis, ovarian cancer, chronic lymphedema of her right leg, mucous membrane pemphigoid on prednisone and cellcept. History also of hyperparathyroidism , mild malnutrition, vitamin D deficiency, GERD, glaucoma presents to ER today after a fall. Patient lives alone in senior housing. She has chronic fatigue but is independent with her ADLs. No history of falls. At 1am, she went to toilet and accidentally go the toilet seat wet. Because it was wet, when she tried to get off, she instead slipped and fell onto her left side. She denies loss of consciousness and denies striking her head. She was unable to get up herself so she laid there for the next 3 hours until she was finally able to call 9aa. Her daughter is at bedside and helps with history. Again, patient has chronic fatigue related to her myelofibrosis but she reports being "especially weak" recently. Yesterday had a temp of 99.4. Recently had a "sinus problem" and cough for past 1 week. Denies urinary complaints. No recent weight loss. 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 X ray of left knee obtained in ER negative for fracture but shows joint effusion and suprapatellar effusion. X ray of left femur is negative for fracture. Patient also complaining of pain at her buttock area. ER course- no medications Allergies Allergy/AdvReac Type Severity Reaction Status Date / Time naproxen Allergy Mild RASH Verified 09/19/22 15:34 niacin Allergy Mild RASH Verified 09/19/22 15:34 Home Medications Medication Instructions Recorded Confirmed Type dorzolamide 2 %-timolol 0.5 % (PF) 1 drp OPB BID 05/24/19 09/19/22 History eye drops doxepin 10 mg capsule 10 mg PO HS 05/24/19 09/19/22 History mycophenolate mofetil 500 mg tablet 500 mg PO DAILY 10/29/20 09/19/22 History omeprazole 20 mg capsule,delayed 20 mg PO DAILYBB 10/29/20 09/19/22 History release prednisone 10 mg tablet 10 mg PO DAILY 01/24/21 09/19/22 History cyanocobalamin (vitamin B-12) 100 100 mcg PO DAILY 06/22/21 09/19/22 History mcg tablet ferrous sulfate 325 mg (65 mg 325 mg PO DAILY 06/22/21 09/19/22 History iron) tablet (FeroSul) acetaminophen 500 mg tablet 1,000 mg PO Q6H PRN Pain 09/19/22 09/19/22 History (Tylenol Extra Strength) cholecalciferol (vitamin D3) 25 25 mcg PO DAILY 09/19/22 09/19/22 History mcg (1,000 unit) tablet (Vitamin D3) levothyroxine 88 mcg tablet 88 mcg PO QAM 09/19/22 09/19/22 History triamcinolone acetonide 0.1 % 1 applic mucous membrane TID PRN 09/19/22 09/19/22 History dental paste .Sores in mouth Past Med/Surg History Medical History Chronic use of steroids Glaucoma Hiatal hernia Hyperlipidemia Diet controlled Hyperparathyroidism 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 Zhou in [place] (oncologist) Thrombocytopenia Surgical History History of bowel resection FOR PERFORATION WITH COLOSTOMY History of cholecystectomy History of colonoscopy History of colostomy reversal History of hysterectomy TOTAL History of lithotripsy Hx of bilateral cataract extraction Hx of cystoscopy Previous back surgery LOWER BACK-NO METAL IMPLANTED S/P debridement OF STOMA SITE S/P thyroidectomy FOR GOITER Family History Father CHF (congestive heart failure) Mother Hypertension Social History Smoking Status: Former smoker Tobacco Type: Cigarettes Second Hand Exposure: No; Do You Dip or Chew Tobacco: No; Hx Alcohol Use: No Hx Substance Use: No Preferred Language: Romanian Communication Ability: Effective [employer] Required: No Beliefs That Will Affect Care: None marital status: / Current Living Situation: Alone Current Living Situation Comment: lives at [facility] How many Children do You have: 2 Feels Safe at Home: Yes Assistive Devices: Hearing Aid - Bilateral Review of Systems Review of Systems: As above in HPI. Remaining ROS otherwise negative Physical Exam Physical Exam: Frail, elderly, thin, hard of hearing, non toxic ENMT: temporal muscle wasting, mucous membrane dry, head is normocephalic Respiratory: breathing comfortably on room air, no wheezing/rhonchi/rales Cardiovascular: regular rate and rhythm, no murmurs/rubs/gallops Gastrointestinal (Abdomen): soft, non tender, non distended Musculoskeletal: right leg is markedly swollen compared to left (this is chronic per patient), left knee with effusion and is tender to touch Skin: skin is thin and frail, left lateral knee with skin tear and bruising Neurologic: awake, alert, spontaneously moving extremities, hard of hearing, answers questions appropriately Psychiatric: affect normal, speech linear, non pressured Results & Data Results & Data Vital Signs (Past 12 Hours) Vital Signs Temp Pulse Pulse Resp BP BP Pulse Ox 09/19/22 14:12 78 18 128/50 L 95 09/19/22 11:30 36.6 C 80 18 130/58 L 97 09/19/22 11:30 36.6 C 80 18 130/58 L 97 O2 Del Method 09/19/22 14:12 Room Air 09/19/22 11:30 Room Air 09/19/22 11:30 Room Air
[2022-09-19 14:49] LABS: Appearance Urine Clear (Clear); Bilirubin Urine Negative (Negative); Blood Urine Negative (Negative); Color Urine Yellow; Glucose Urine UA Negative (Negative); Ketones Urine Negative (Negative); Leukocyte Esterase Urine Negative (Negative); Nitrite Urine Negative (Negative); Protein Urine Negative (Negative); Specific Gravity Urine 1.007 (1.000-1.030); Urobilinogen Urine Negative (Negative); pH Urine 6.5 (4.5-7.5)
--- NOTE | 2022-09-19 16:51 | Ultrasound Report ---
US venous doppler LE RT HISTORY: 87 years-old Female swelling, eval for DVT acute pain and swelling of the right lower extre mity COMPARISON: None TECHNIQUE: Multiple real-time sonographic images of the right lower extremity deep venous structures were obtained assessing grayscale appearance, color and spectral flow. FINDINGS: Normal flow, compressibility, phasicity and augmentation. Subcutaneous edema. IMPRESSION: No sonographic evidence of deep venous thrombosis. ACT 112: Negative or not required by law. The above report was generated using voice recognition software. It may contain grammatical, syntax o r spelling errors. Electronically signed by: Chris Vega M.D. 09/19/2022 4:50 PM
--- NOTE | 2022-09-19 17:15 | XRay Report ---
XR pelvis 1-2V routine HISTORY: 87 years-old Female pain after fall. eval for pelvic fracture acute pelvic pain status pos t fall COMPARISON: Left femur radiographs of same day TECHNIQUE: AP view of the pelvis FINDINGS: Moderate osteoarthritis of the hips. No acute fracture, dislocation or avascular necrosis. Deminerali zed appearance of the bones. IMPRESSION: No acute fracture or dislocation identified. ACT 112: Negative or not required by law. The above report was generated using voice recognition software. It may contain grammatical, syntax o r spelling errors. Electronically signed by: Chris Vega M.D. 09/19/2022 5:14 PM
--- NOTE | 2022-09-19 17:23 | XRay Report ---
XR chest 1V portable HISTORY: 87 years-old Female cough acute cough COMPARISON: 06/22/2021 TECHNIQUE: AP view of the chest FINDINGS: Cardiac silhouette is enlarged. Atherosclerosis of the aorta. No pneumothorax, pleural effusion or ov ert pulmonary edema. Moderate basilar opacities suggest atelectasis. Degenerative changes of the shou lders and spine. IMPRESSION: 1. Cardiomegaly without acute process. 2. Mild right basilar atelectasis. ACT 112: Negative or not required by law. The above report was generated using voice recognition software. It may contain grammatical, syntax o r spelling errors. Electronically signed by: Chris Vega M.D. 09/19/2022 5:22 PM
--- NOTE | 2022-09-19 17:28 | Orthopedic Consultation ---
Date of Service September 19, 2022 Assessment & Plan (1) Traumatic effusion of knee joint: (2) Chondrocalcinosis of knee: Plan Likely isolated posttraumatic effusion, but the x-ray shows some chondrocalcinosis. Her range of motion improved noticeably with aspiration, which she tolerated very well. We will send the fluid for counts and crystals to be thorough. Agree with admission for safety. Recommend PT/OT for mobilization and disposition. She can be weightbearing and range of motion as tolerated. We will follow-up with her progress. History of Present Illness Reason for Consultation: Left knee pain after fall Requesting Physician: . 87-year-old female who fell overnight presented to the ER today by EMS. She lives on her own and had fallen in the bathroom when she slipped. Said she landed on her left side. She could not bear weight and had to crawl a ways to get her phone. ER evaluation demonstrated no particular fractures, though there was a large effusion in his knee that was painful to put weight on. Orthopedics was consulted for management of the effusion and further recommendations. Allergies Allergy/AdvReac Type Severity Reaction Status Date / Time naproxen Allergy Mild RASH Verified 09/19/22 15:34 niacin Allergy Mild RASH Verified 09/19/22 15:34 Home Medications Medication Instructions Recorded Confirmed Type dorzolamide 2 %-timolol 0.5 % (PF) 1 drp OPB BID 05/24/19 09/19/22 History eye drops doxepin 10 mg capsule 10 mg PO HS 05/24/19 09/19/22 History mycophenolate mofetil 500 mg tablet 500 mg PO DAILY 10/29/20 09/19/22 History omeprazole 20 mg capsule,delayed 20 mg PO DAILYBB 10/29/20 09/19/22 History release prednisone 10 mg tablet 10 mg PO DAILY 01/24/21 09/19/22 History cyanocobalamin (vitamin B-12) 100 100 mcg PO DAILY 06/22/21 09/19/22 History mcg tablet ferrous sulfate 325 mg (65 mg 325 mg PO DAILY 06/22/21 09/19/22 History iron) tablet (FeroSul) acetaminophen 500 mg tablet 1,000 mg PO Q6H PRN Pain 09/19/22 09/19/22 History (Tylenol Extra Strength) cholecalciferol (vitamin D3) 25 25 mcg PO DAILY 09/19/22 09/19/22 History mcg (1,000 unit) tablet (Vitamin D3) levothyroxine 88 mcg tablet 88 mcg PO QAM 09/19/22 09/19/22 History triamcinolone acetonide 0.1 % 1 applic mucous membrane TID PRN 09/19/22 09/19/22 History dental paste .Sores in mouth Past Med/Surg History Medical History Chronic use of steroids Glaucoma Hiatal hernia Hyperlipidemia Diet controlled Hyperparathyroidism 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 Zhou in [place] (oncologist) Thrombocytopenia Surgical History History of bowel resection FOR PERFORATION WITH COLOSTOMY History of cholecystectomy History of colonoscopy History of colostomy reversal History of hysterectomy TOTAL History of lithotripsy Hx of bilateral cataract extraction Hx of cystoscopy Previous back surgery LOWER BACK-NO METAL IMPLANTED S/P debridement OF STOMA SITE S/P thyroidectomy FOR GOITER Family History Father CHF (congestive heart failure) Mother Hypertension Social History Smoking Status: Former smoker Tobacco Type: Cigarettes Second Hand Exposure: No; Do You Dip or Chew Tobacco: No; Hx Alcohol Use: No Hx Substance Use: No Preferred Language: Andorran Communication Ability: Effective Hand Leather Trimmer Required: No Beliefs That Will Affect Care: None marital status: / Current Living Situation: Alone Current Living Situation Comment: lives at [facility] How many Children do You have: 2 Feels Safe at Home: Yes Assistive Devices: Hearing Aid - Bilateral Review of Systems All systems reviewed & are unremarkable except as noted in HPI & below. Physical Exam Left knee: There are contusion patterns about the fibular head and Gerdy's tubercle with some unroofing of the one more anteriorly over Gerdy's. She is nontender palpation about the tibial plateau and fibular head. She is nontender about the distal femur and patella. Moderately tender in the posterior fossa. She can perform a straight leg raise and flex to about 60 degrees, limited by pain and tension. There is a large effusion. Examination after aspiration demonstrated maintenance of her straight leg raise with about 5 degree flexion contracture and flexion beyond 90 degrees. Constitutional WD/WN, vitals as above Respiratory normal respiratory effort; no respiratory distress Cardiovascular Extremities: normal capillary refill; no edema Chest (Breasts) Chest: normal inspection of chest Skin no rashes, warm and dry Psychiatric A+Ox3, euthymic affect Results & Data Results & Data Laboratory Results H & H 09/19/22 Range/Units 13:02 Hgb 10.5 L (12.0-16.0) g/dl Hct 30.9 L (37.0-47.0) % Diagnostic Findings Radiographs of the left femur, pelvis, knee demonstrate no obvious fractures. The knee x-rays show some chondrocalcinosis and moderate degenerative change. PG Care Time/CCT Total # of Minutes Spent Total Time Spent with Patient: Total time spent is greater than 50% in coordination of care (as documented) at patient's floor/unit and/or counseling patient: Coding Level of Care Code 54521 IN/OBS CONSULT LVL 4,60M Diagnoses Traumatic effusion of knee joint M25.469 Chondrocalcinosis of knee M11.269
--- NOTE | 2022-09-19 17:31 | Procedure Note ---
Procedure Note Date of Service September 19, 2022 Note Left knee aspiration of effusion: Indications: Her exam was consistent with a large effusion that prevented flexion. She was having trouble putting weight on the left lower extremity, and the effusion likely contributed to that pain. I discussed the nature of the effusion and the potential for significant pain relief by decreasing it with an aspiration. We discussed the risks are pain and discomfort and potential intr oduction of infection. After discussion, she was interested in proceeding with the aspiration to reduce pain. I offered ethyl chloride and lidocaine at the aspiration site, but she did not think that was necessary. She was agreeable proceed as I described. Using sterile technique, and an 18-gauge needle on a 60 cc syringe, I aspirated a total of 35 cc of dark red synovial fluid, consistent with her trauma. No evidence of purulence. The lateral suprapatellar portal was utilized. The skin was prepped using chlorhexidine. She tolerated the procedure well, and the site was dressed with a Band-Aid. The nurses applied a compressive Preston wrap with gauze over the site. Synovial fluid was turned over to the nursing staff for delivery to the lab. Cell count and crystal exam has been ordered by myself Coding
[2022-09-19] MEDS ORDERED: TRIAMCINOLONE ACET 0.1% ORABASE 5 GM TUBE MT PRN (18:00)
[2022-09-19] MEDS: ENOXAPARIN INJ 40 MG/0.4 ML SYR SQ SCH (18:50)
[2022-09-19] MEDS: BACITRACIN OINT 15 GM TUBE EXT SCH (18:51)
[2022-09-19 21:30] LABS: Hematocrit (blood only) 28.1 % (37.0-47.0); Hemoglobin 9.6 g/dl (12.0-16.0)
[2022-09-19] MEDS: ACETAMINOPHEN 500 MG TAB PO SCH (21:56)
[2022-09-19] MEDS: DOXEPIN HCL 10 MG CAPSULE PO SCH (21:56)
[2022-09-19 22:49] LABS: Appearance Synovial Fluid Bloody; Color Synovial Fluid Red; RBC Synovial Fluid Auto 1538000 /uL; Source Synovial Fluid Left Knee; WBC Synovial Fluid Auto 10712 /ul (0-200)
[2022-09-20] MEDS: PANTOprazole 40 MG TAB PO SCH (05:48)
[2022-09-20] MEDS: LEVOTHYROXINE SODIUM 88 MCG TABLET PO SCH (05:48)
[2022-09-20] MEDS: predniSONE 10 MG TABLET PO SCH (08:15)
[2022-09-20] MEDS: CYANOCOBALAMIN (B-12) 100 MCG TABLET PO SCH (08:16)
[2022-09-20] MEDS: MYCOPHENOLATE MOFETIL 250 MG CAP PO SCH (08:16)
[2022-09-20] MEDS: FERROUS SULFATE 325 MG TAB PO SCH (08:17)
[2022-09-20] MEDS: ACETAMINOPHEN 500 MG TAB PO SCH ×3 (08:18→20:12)
[2022-09-20] MEDS: BACITRACIN OINT 15 GM TUBE EXT SCH (08:18)
[2022-09-20] MEDS: CHOLECALCIFEROL 1,000 UNITS 25 MCG TAB PO SCH (08:18)
--- NOTE | 2022-09-20 15:06 | Hospitalist Progress Note ---
Date of Service September 20, 2022 Assessment & Plan (1) Fall: Plan: -Complained of left knee pain (X ray shows effusion), see below - complained of buttock pain, xrays reviewed. -c/w PT/OT (2) Effusion, left knee: Plan: -likely traumatic effusion, ortho evaled,s/p arthrocentsis, pt w/ relief of left knee pain/swelling. Study w/ no crystals. (3) Left knee pain: Plan: -acetaminophen 1000mg TID x 3 days. Ice. Elevate extremity. (4) Generalized weakness: Plan: -Complains of worsening weakness, CXR and UA w/ no acute findings. pt/ot. ??snf. Plan Chronic medical conditions: Chronic leukocytosis, myelofibrosis--WBC elevation within her baseline. Vitamin D deficiency- continue supplement GERD- continue PPI Mucous membrane pemphigoid- continue prednisone 10mg and cellcept Hypothyroidism- continue levothyroxine DVT ppx - SQ lovenox. Patient at increased risk for VTE Code Status. DNR/DNI Disposition- pt/ot, cm to assist. Admission and Anticipated Discharge Date Admission Date: September 19, 2022 Subjective Patient seen and examined at bedside as a follow-up for fall and left knee effusion/pain. Patient was sitting up in chair, on room air, NAD, reports no new acute symptoms overnight, denies headache or dizziness or chest pain or palpitation. Reports i mprovement in her left knee pain after arthrocentesis. Denies fevers or chills. Physical Exam Physical Exam: GENERAL: Alert and oriented x3. NAD, on RA. Frail, elderly lady. [place]. HEENT: No pallor, no icterus. Pupils equal, round and reactive to light. Oral mucosa moist. NECK: No JVD, no neck masses. HEART: S1 and S2 heard. Regular rate and rhythm. No murmur, no gallop. RESPIRATORY SYSTEM: Normal AP diameter. No accessory muscle use. No wheezing, no crackles. ABDOMEN: Soft, bowel sounds present, nontender, no distention. CENTRAL NERVOUS SYSTEM: No facial droop. Speech is clear. Obeys simple commands. Moves extremities. EXTREMITIES: No edema, no erythema seen. Left knee w/ crepe bandage, no swelling noted. Results & Data Results & Data Vital Signs (Past 12 Hours) Vital Signs Temp Pulse Resp BP Pulse Ox O2 Del Method 09/20/22 14:56 36.9 C 74 14 136/56 L 98 Room Air 09/20/22 13:27 76 132/64 09/20/22 07:06 36.5 C 78 14 165/56 H 99 Room Air
[2022-09-20] MEDS: DOXEPIN HCL 10 MG CAPSULE PO SCH (20:12)
[2022-09-20] MEDS: ENOXAPARIN INJ 40 MG/0.4 ML SYR SQ SCH (20:13)
[2022-09-20] MEDS: DORZOLAMIDE OPB SCH (20:13)
[2022-09-20] MEDS: TIMOLOL OPB SCH (20:13)
[2022-09-21] MEDS: LEVOTHYROXINE SODIUM 88 MCG TABLET PO SCH (05:26)
[2022-09-21] MEDS: PANTOprazole 40 MG TAB PO SCH (05:26)
[2022-09-21 06:56] LABS: Hematocrit (blood only) 28.4 % (37.0-47.0); Hemoglobin 9.6 g/dl (12.0-16.0); Mean Corpuscular Hemoglobin 37.8 pg (25.0-34.0); Mean Corpuscular Hgb Conc 33.8 g/dL (32.0-36.0); Mean Corpuscular Volume 111.8 fL (80.0-100.0); Mean Platelet Volume 11.2 fL (9.4-12.4); Nucleated RBC # (auto) 0.18 K/uL (0-0.12); Nucleated RBC % (auto) 1.2 %; Platelet Count 91 K/uL (130-400); RDW Coefficient of Variation 26.1 % (11.5-14.5); RDW Standard Deviation 104.4 fL (36.4-46.3); Red Blood Count 2.54 M/uL (4.20-5.40); White Blood Count 15.43 K/ul (4.8-10.8)
[2022-09-21 07:29] LABS: Calcium 9.1 mg/dl (8.6-10.3)
[2022-09-21 07:35] LABS: BUN Creatinine Ratio 21.3 (10-20); Creatinine Clr Calc Pharmacy 38.7 ml/min; Est GFR (African American) 83.1 ml/min; Est GFR (Non-African American) 71.7 ml/min; Phosphorus 2.9 mg/dl (2.5-4.9)
[2022-09-21] MEDS: CYANOCOBALAMIN (B-12) 100 MCG TABLET PO SCH (09:08)
[2022-09-21] MEDS: FERROUS SULFATE 325 MG TAB PO SCH (09:08)
[2022-09-21] MEDS: MYCOPHENOLATE MOFETIL 250 MG CAP PO SCH (09:08)
[2022-09-21] MEDS: predniSONE 10 MG TABLET PO SCH (09:08)
[2022-09-21] MEDS: CHOLECALCIFEROL 1,000 UNITS 25 MCG TAB PO SCH (09:08)
[2022-09-21] MEDS: BACITRACIN OINT 15 GM TUBE EXT SCH (09:09)
[2022-09-21] MEDS: DORZOLAMIDE OPB SCH (09:09)
[2022-09-21] MEDS: TIMOLOL OPB SCH (09:09)
[2022-09-21] MEDS: ACETAMINOPHEN 500 MG TAB PO SCH ×2 (09:09→13:21)
--- NOTE | 2022-09-21 13:20 | Discharge Summary ---
Date of Service September 21, 2022 Admission HPI Per Admitting Provider Ms Milagro Mckoy is a 87 year old female with history of myelofibrosis and essential thrombocytosis, ovarian cancer, chronic lymphedema of her right leg, mucous membrane pemphigoid on prednisone and cellcept. History also of hyperparathyroidism , mild malnutrition, vitamin D deficiency, GERD, glaucoma presents to ER today after a fall. Patient lives alone in senior housing. She has chronic fatigue but is independent with her ADLs. No history of falls. At 1am, she went to toilet and accidentally go the toilet seat wet. Because it was wet, when she tried to get off, she instead slipped and fell onto her left s romeo. She denies loss of consciousness and denies striking her head. She was unable to get up herself so she laid there for the next 3 hours until she was finally able to call [facility]. Her daughter is at bedside and helps with history. Again, patient has chronic fatigue related to her myelofibrosis but she reports being "especially weak" recently. Yesterday had a temp of 99.4. Recently had a "sinus problem" and cough for past 1 week. Denies urinary complaints. No recent weight loss. 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 X ray of left knee obtained in ER negative for fracture but shows joint effusion and suprapatellar effusion. X ray of left femur is negative for fracture. Patient also complaining of pain at her buttock area. ER course- no medications Admission Exam Per Admitting Provider GENERAL: Alert and oriented x3. NAD, on RA. Frail, elderly lady. [place]. HEENT: No pallor, no icterus. Pupils equal, round and reactive to light. Oral mucosa moist. NECK: No JVD, no neck masses. HEART: S1 and S2 heard. Regular rate and rhythm. No murmur, no gallop. RESPIRATORY SYSTEM: Normal AP diameter. No accessory muscle use. No wheezing, no crackles. ABDOMEN: Soft, bowel sounds present, nontender, no distention. CENTRAL NERVOUS SYSTEM: No facial droop. Speech is clear. Obeys simple commands. Moves extremities. EXTREMITIES: No edema, no erythema seen. Left knee w/ crepe bandage, no swelling noted. Principal Diagnosis Fall Left knee effusion/pain, traumatic Generalized weakness Discharge Exam GENERAL: Alert and oriented x3. NAD, on RA. Frail, elderly lady. [place]. HEENT: No pallor, no icterus. Pupils equal, round and reactive to light. Oral mucosa moist. NECK: No JVD, no neck masses. HEART: S1 and S2 heard. Regular rate and rhythm. No murmur, no gallop. RESPIRATORY SYSTEM: Normal AP diameter. No accessory muscle use. No wheezing, no crackles. ABDOMEN: Soft, bowel sounds present, nontender, no distention. CENTRAL NERVOUS SYSTEM: No facial droop. Speech is clear. Obeys simple commands. Moves extremities. EXTREMITIES: No edema, no erythema seen. Left knee w/ crepe bandage, no swelling/erythema/tenderness noted. Discharge Data Allergies Allergy/AdvReac Type Severity Reaction Status Date / Time naproxen Allergy Mild RASH Verified 09/19/22 15:34 niacin Allergy Mild RASH Verified 09/19/22 15:34 Consultations 09/19/22 14:10 ED Decision to Admit Stat 09/19/22 16:05 Consult Orthopedic Surgery Routine Ordered Studies 09/19/22 16:05 US venous doppler LE RT Stat Hospital Course (1) Fall: -Complained of left knee pain (X ray shows effusion), see below - complained of buttock pain, xrays reviewed. -c/w PT/OT (2) Effusion, left knee: -likely traumatic effusion, ortho evaled,s/p arthrocentsis, pt w/ relief of left knee pain/swelling. Study w/ no crystals. (3) Left knee pain: -Can use OTC Tylenol for pain as needed and ice. Elevate extremity. (4) Generalized weakness: -Complains of worsening weakness, CXR and UA w/ no acute findings. pt/ot evaluated. Plan Chronic medical conditions: Chronic leukocytosis, myelofibrosis--WBC elevation within her baseline. Vitamin D deficiency- continue supplement GERD- continue PPI Mucous membrane pemphigoid- continue prednisone 10mg and cellcept Hypothyroidism- continue levothyroxine DVT ppx - SQ lovenox. Patient at increased risk for VTE Code Status. DNR/DNI Patient being discharged home with home health with following instruction at the point of discharge: Follow-up with your primary care physician within a week, likely you will need labs CBC/CMP. You can use [id number] Tylenol as needed for your knee pain. If worsening knee swelling/redness/extreme pain, contact emergency immediately. Take your medications as prescribed. Home Health Attestation I certify that this patient is under my care and that I, or a physicians farm assistant working with me, had a face to-face encounter that meets the home health [id number] encounter requirements with this patient. The encounter with the patient was in whole, or in part, for the following medical condition, which is the primary reason for home health care (list medical condition): I certify that, based on my findings, the following services are medically necessary home health services: My clinical findings support the need for the above services because: Further, I certify that my clinical findings support that this patient is homebound (i.e. absences from home require considerable and taxing effort and are for medical reasons or buddhism services or infrequently or of short duration when for other reasons) because: Certification for Home Health Services: Based on the above findings, I certify that this patient is confined to the home and needs intermittent custodial care, physical therapy and/or speech therapy or continues to need occupational therapy. The patient is under my care, and I have initiated the establishment of the plan of care. This patient will be followed by a physician who will periodically review the plan of care. Total Time Total Time Spent Total Time Spent (In Minutes): 45 Discharge Plan Discharge Items Patient Disposition: Home - Home Health Services Reason For Visit: FALL Discharge Diagnosis: Fall Left knee effusion/pain, traumatic Generalized weakness Activity: Resume your previous activity Non-emergency contact: Primary Care Provider Call non-emergency contact if: you have any medication questions Follow-up/Referrals: Ivy Meier MD [Primary Care Provider] - (Date & Time 09/26/2022 12:20 PM Provider Ivy Meier MD Department Family Medicine [facility] ) Diet: Regular Diet Texture: Easy to Chew Addtl Attending Provider Instructions: Follow-up with your primary care physician within a week, likely you will need labs CBC/CMP. You can use [id number] Tylenol as needed for your knee pain. If worsening knee swelling/redness/extreme pain, contact emergency immediately. Take your medications as prescribed. Pending Studies at Discharge: Yes Stand-Alone Forms: My [facility], Smoking Cessation Medications and DC Order Prescriptions: Continued doxepin 10 mg Capsule 10 mg PO HS dorzolamide-timolol (PF) 2-0.5 % Drops 1 drp OPB BID omeprazole 20 mg capsule,delayed release(DR/EC) 20 mg PO DAILYBB Rx Instructions: take 1 hour before first meal of the day mycophenolate mofetil 500 mg tablet 500 mg PO DAILY prednisone 10 mg tablet 10 mg PO DAILY cyanocobalamin (vitamin B-12) 100 mcg Tablet 100 mcg PO DAILY ferrous sulfate [FeroSul] 325 mg (65 mg iron) tablet 325 mg PO DAILY acetaminophen [Tylenol Extra Strength] 500 mg Tablet 1,000 mg PO Q6H PRN (Reason: Pain) levothyroxine 88 mcg tablet 88 mcg PO QAM triamcinolone acetonide 0.1 % paste 1 applic mucous membrane TID PRN (Reason: .Sores in mouth) cholecalciferol (vitamin D3) [Vitamin D3] 25 mcg (1,000 unit) Tablet 25 mcg PO DAILY Discharge Orders: Discharge Order (Routine); Ordered 09/21/22 Ordered By: Parag Wise Admission Data Admit Date/Time: 09/20/22 16:22 Attending Provider: Keysha Chairez Admit Provider: Parag Wise Primary Care Provider: Ivy Meier Other Providers: Victorino Finnegan ; Keysha Chairez
== END 2022-09-21 14:48 | disposition home or self-care (01) | DRG 565 ==
LOC: ED 11:23 → 3E 11:23 → SUATTDRO 16:05 → 3E 18:09

== ENCOUNTER 2022-12-25 12:46 | Inpatient (IN) ==
--- NOTE | 2022-12-25 12:52 | Emergency Department Note ---
Impression & Plan Acute UTI, Lymphedema, Primary hyperparathyroidism ED Provider Note NAME: INGA MENDEZ AGE: 87 SEX: F ARRIVES VIA: Ambulance INFORMANT: Patient ED PROVIDER(S): Duran Cuevas MD CHIEF COMPLAINT: Edema, dizziness PLAN: Disposition: Admit MEDICAL DECISION MAKING: The patient is a pleasant 87-year-old woman with a past medical history of ovarian carcinoma previously now in remission, primary myelofibrosis, chronic right lower extremity lymphedema, primary hyperparathyroidism presents to the emergency department via EMS and then accompanied by her daughter and granddaughter for evaluation of symptoms of lightheadedness and near syncope when she was attempting to move her bowels in setting of being constipated but was able to do so in the setting of developing new left lower extremity lymphedema over the past week. The patient's daughter reports that that her left lower extremity has been weeping increasingly and even more so after she suffered a minor skin tear when attempting to get her compression dressing on. Since then it has been saturating "everything". Otherwise denies any recent cough, congestion, chest pain or shortness of breath. They do report that she had a low-grade fever couple of days ago that went away and is not entirely typical for her history of myelofibrosis. On my evaluation the patient is fatigued appearing, chronically ill appearing but no acute distress, afebrile with stable vital signs. 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 Suspect this resulted in decompression of her lymphedema as daughter previously describes that this was extending up into her thigh which is not the case at this time. Otherwise, the patient does exhibit component of intravascular depletion with skin tenting and dry mucous membranes. EKG without overt acute ischemia. CXR negative for acute cardiopulmonary process. WBC 17.6, H/H 8.6/26, platelets 87K all similar to prior range values in the setting of history of myelofibrosis. INR 1.2, nonspecific. Sodium 128 with glucose of 119 and is similar to prior. Electrolytes otherwise unremarkable. LFTs unremarkable. High-sensitivity troponin 6.4, within normal limits. BNP 144, nonspecific. Albumin is 2.8, similar to prior range of values. Procalcitonin is not elevated. Lipase not elevated. Free T4 within normal limits. UA with WBCs and 1+ bacteria albeit with epithelial cells present. CT of the chest was performed and was negative for PE or pneumonia. CT abdomen pelvis was performed and demonstrates nonspecific findings suggestive of proctocolitis however suspect may reflect component of patient's constipation as she did strain and move her bowels prior to arrival. Otherwise note is made of splenomegaly consistent with patient's known history of myelofibrosis and is unchanged. No acute process otherwise. I did discuss the patient's symptoms with the patient and her family at the bedside. They report that it is difficult to say if the patient has urinary symptoms as she has not had symptoms with prior urinary infections. Ultimately, we did agree to refer the patient for admission given her functional status has declined significantly given her new left lower extremity lymphedema with excessive weeping where they were unable to manage effectively given the patient lives at home alone. Further, given the patient's suspected UTI with recent fevers we agreed to obtain blood cultures and treat empirically. The patient ultimately agreed as did the patient's daughters with plan for admission for further management. Case was discussed with Dr. Vergara, [facility], who will evaluate the patient for admission. Bilateral extremity ultrasound was subsequently performed and negative for DVT and otherwise note of chronic nonocclusive superf icial thrombus bilaterally. Further management per admitting team. Triage Nursing notes reviewed and agree them. Prior/outside medical records reviewed Vital Signs: reviewed Differential diagnosis: Infection, dehydration, metabolic abnormality, hypo/hyperglycemia, electrolyte disturbance, anemia, hypoxia, cardiac sources, intracerebral event, toxicologic, neurologic, as well as other pathologies. ER treatment provided: See below. Diagnostics interpreted by me: ECG: Sinus tachycardia, 112 bpm, no ectopy, no overt ST elevation or depression, QTc 455, QRS 80. Cardiac Monitoring: An order for continuous cardiac monitoring was placed and demonstrated Sinus tachycardia, 112 bpm, no ectopy Laboratory studies: See below Imaging studies: See below Consultation(s): [facility] HPI: The patient is a pleasant 87-year-old woman with a past medical history of ovarian carcinoma previously now in remission, primary myelofibrosis, chronic right lower extremity lymphedema, primary hyperparathyroidism presents to the emergency department via EMS and then accompanied by her daughter and granddaugh patti for evaluation of symptoms of lightheadedness and near syncope when she was attempting to move her bowels in setting of being constipated but was able to do so in the setting of developing new left lower extremity lymphedema over the past week. The patient's daughter reports that that her left lower extremity has been weeping increasingly and even more so after she suffered a minor skin tear when attempting to get her compression dressing on. Since then it has been saturating "everything". Otherwise denies any recent cough, congestion, chest pain or shortness of breath. They do report that she had a low-grade fever couple of days ago that went away and is not entirely typical for her history of myelofibrosis. ROS: See above HPI for pertinent positives & negatives. A total of 10 systems reviewed and were otherwise negative. VITALS:See Below PHYSICAL EXAMINATION: GENERAL: Awake, alert, fatigued-appearing, in no distress HENT: Normocephalic, atraumatic. Oropharynx with dry mucous membranes and otherw ise unremarkable. EYES: Normal conjunctiva. Sclera non-icteric. NECK: Supple. No nuchal rigidity. FROM. No JVD. RESPIRATORY: Clear to auscultation. CARDIAC: Regular rate, normal rhythm. Extremities warm and well perfused. Pulses equal. ABDOMEN: Soft, non-distended. No tenderness to palpation. No rebound or guarding. No masses. RECTAL: Deferred. MUSCULOSKELETAL: Chest examination reveals no tenderness. The back is symmetrical on inspection without obvious abnormality. There is no CVA tenderness to palpation. No joint edema. LOWER EXTREMITIES: 3+ chronic lymphedema of the right lower extremity and 1+ lymphedema of the left lower extremity where there is brisk serous drainage/weeping from her approximately 3 cm in size minor skin tear of the left lower leg. NEURO: Normal sensorium. No sensory or motor deficits noted. SKIN: Dry with tenting. No rash or jaundice noted. 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 Zhou in [place] (oncologist) Thrombocytopenia Surgical History History of bowel resection FOR PERFORATION WITH COLOSTOMY History of cholecystectomy History of colonoscopy History of colostomy reversal History of hysterectomy TOTAL History of lithotripsy Hx of bilateral cataract extraction Hx of cystoscopy Previous back surgery LOWER BACK-NO METAL IMPLANTED S/P debridement OF STOMA SITE S/P thyroidectomy FOR GOITER Family History Father CHF (congestive heart failure) Mother Hypertension Social History Smoking Status: Former smoker Tobacco Type: Cigarettes Second Hand Exposure: No; Do You Dip or Chew Tobacco: No; Hx Alcohol Use: No Hx Substance Use: No Preferred Language: Bulgarian Communication Ability: Effective Vest Tailor Required: No Beliefs That Will Affect Care: None marital status: / Current Living Situation: Personal Care Facility Current Living Situation Comment: lives at [facility] How many Children do You have: 2 Feels Safe at Home: Yes Assistive Devices: Walker Allergies Allergies Allergy/AdvReac Type Severity Reaction Status Date / Time naproxen Allergy Mild RASH Verified 12/25/22 16:45 niacin Allergy Mild RASH Verified 12/25/22 16:45 Home Meds Home Medications Medication Instructions Recorded Confirmed dorzolamide 2 %-timolol 0.5 % (PF) 1 drp OPB BID 05/24/19 12/25/22 eye drops doxepin 10 mg capsule 10 mg PO HS 05/24/19 12/25/22 mycophenolate mofetil 500 mg tablet 500 mg PO DAILY 10/29/20 12/25/22 omeprazole 20 mg capsule,delayed 20 mg PO DAILYBB 10/29/20 12/25/22 release prednisone 10 mg tablet 10 mg PO DAILY 01/24/21 12/25/22 cyanocobalamin (vitamin B-12) 100 100 mcg PO DAILY 06/22/21 12/25/22 mcg tablet ferrous sulfate 325 mg (65 mg 325 mg PO DAILY 06/22/21 12/25/22 iron) tablet (FeroSul) acetaminophen 500 mg tablet 1,000 mg PO Q6H PRN Pain 09/19/22 12/25/22 (Tylenol Extra Strength) cholecalciferol (vitamin D3) 25 25 mcg PO DAILY 09/19/22 12/25/22 mcg (1,000 unit) tablet (Vitamin D3) dexamethasone 0.5 mg/5 mL oral 0.5 mg PO BID PRN mouth ulcers 12/25/22 12/25/22 elixir levothyroxine 100 mcg tablet 100 mcg PO QAM 12/25/22 12/25/22 linaclotide 72 mcg capsule 72 mcg PO DAILY 12/25/22 12/25/22 (Linzess) polyethylene glycol 3350 17 gram 17 g PO DAILY 12/25/22 12/25/22 oral powder packet (Miralax) Results & Data (ED) Vital Signs Vital Signs - 24 hr 12/25/22 13:05 12/25/22 13:05 12/25/22 14:22 Temperature 36.5 C Temperature Source Oral Pulse Rate 87 86 Pulse Rate [Apical] Pulse Strength Normal Respiratory Rate 18 Respiratory Effort / Characteristics Non-Labored Spontaneous Respiratory Depth Normal Respiratory Pattern Regular Blood Pressure 114/53 L Blood Pressure [Right Arm] Blood Pressure Mean 73 Blood Pressure Mean [Right Arm] Blood Pressure Position Lying Blood Pressure Position [Right Arm] Pulse Oximetry 98 98 Oxygen Delivery Method Room Air Room Air Sepsis Recent Fever Within 48 Hours No Sepsis New/Unexplained Change in Mental Status No Sepsis Action Taken by Nursing No Action Required 12/25/22 16:02 Temperature Temperature Source Pulse Rate Pulse Rate [Apical] 90 Pulse Strength Respiratory Rate 18 Respiratory Effort / Characteristics Non-Labored Spontaneous Respiratory Depth Normal Respiratory Pattern Blood Pressure Blood Pressure [Right Arm] 121/48 L Blood Pressure Mean Blood Pressure Mean [Right Arm] 72 Blood Pressure Position Blood Pressure Position [Right Arm] Lying Pulse Oximetry 97 Oxygen Delivery Method Room Air Sepsis Recent Fever Within 48 Hours Sepsis New/Unexplained Change in Mental Status Sepsis Action Taken by Nursing Laboratory Data Attestation: I reviewed the patient's lab results. 12/25/22 13:20 12/25/22 13:08 Lab Results 12/25/22 12/25/22 12/25/22 Range/Units 13:08 13:08 13:20 WBC 17.60 H (4.8-10.8) K/ul RBC 2.25 L (4.20-5.40) M/uL Hgb 8.6 L (12.0-16.0) g/dl Hct 26.0 L (37.0-47.0) % MCV 115.6 H (80.0-100.0) fL MCH 38.2 H (25.0-34.0) pg MCHC 33.1 (32.0-36.0) g/dL RDW Std Deviation 114.2 H (36.4-46.3) fL RDW Coeff of Yee 27.3 H (11.5-14.5) % Plt Count 87 L (130-400) K/uL MPV 12.2 (9.4-12.4) fL Absolute Nucleated RBC 0.19 H (0.00-0.12) K/uL Nucleated RBC % (auto) 1.1 % Neutrophils % (Manual) 76 % Lymphocytes % (Manual) 6 % Monocytes % (Manual) 6 % Eosinophils % (Manual) 2 % Basophils % (Manual) 2 % Metamyelocytes % (Man) 3 % Myelocytes % (Man) 2 % Promyelocytes % (Man) 3 % Neutrophils # (Manual) 13.38 H (1.40-6.50) K/uL Total Absolute Neuts 13.38 H (1.4-6.5) K/uL Lymphocytes # (Manual) 1.06 L (1.2-3.4) K/uL Total Abs Lymphocytes 1.06 L (1.2-3.4) K/uL Monocytes # (Manual) 1.06 H (0.11-0.59) K/uL Eosinophils # (Manual) 0.35 (0-0.50) K/uL Basophils # (Manual) 0.35 H (0-0.2) K/uL Metamyelocytes # (Man) 0.53 H (0-0) K/uL Myelocytes # (Manual) 0.35 H (0-0) K/uL Promyelocytes # (Man) 0.53 H (0-0) K/uL Toxic Granulation 1+ Platelet Estimate Decreased L (Normal) Polychromasia 1+ Anisocytosis Present Macrocytosis Present Tear Drop Cells 1+ Schistocytes 1+ PT 13.2 H (9.0-12.0) Seconds INR 1.2 H (0.9-1.1) Sodium 128 L (136-145) mmol/L Potassium 3.9 (3.5-5.1) mmol/L Chloride 99 (98-107) mmol/L Carbon Dioxide 28 (21-32) mmol/L Anion Gap 1 L (3-11) BUN 16 (6-23) mg/dl Creatinine 0.61 (0.6-1.2) mg/dl Est Cr Clr Drug Dosing 54.0 ml/min Est GFR ( Amer) 94.5 ml/min Est GFR (Non-Af Amer) 81.5 ml/min BUN/Creatinine Ratio 26.2 H (10-20) Glucose 119 H (70-99(Fasting)) mg/dl Calcium 8.8 (8.6-10.3) mg/dl Phosphorus 2.8 (2.5-4.9) mg/dl Magnesium 1.9 (1.7-2.4) mg/dl Total Bilirubin 0.8 (0.2-1.0) mg/dl AST 9 L (13-39) U/L ALT 7 (7-52) U/L Alkaline Phosphatase 57 (34-104) U/L Troponin I High Sens 6.4 (0-14) pg/ml B-Natriuretic Peptide (0-100) pg/ml Total Protein 4.2 L (6.0-8.3) gm/dl Albumin 2.8 L (3.4-5.0) gm/dl Globulin 1.4 L (2.5-4.0) gm/dl Albumin/Globulin Ratio 2.0 (0.9-2) Lipase 6 L (11-82) U/L Procalcitonin (0-0.5) ng/ml TSH (0.300-4.500) uIu/ml Free T4 (0.61-1.60) ng/dl Urine Color Urine Appearance (Clear) Urine pH (4.5-7.5) Ur Specific [place] (1.000-1.030) Urine Protein (Negative) Urine Glucose (UA) (Negative) Urine Ketones (Negative) Urine Blood (Negative) Urine Nitrite (Negative) Urine Bilirubin (Negative) Urine Urobilinogen (Negative) Ur Leukocyte Esterase (Negative) Urine WBC (Auto) (0-5) /hpf Urine RBC (Auto) (0-4) /hpf U Hyaline Cast (Auto) (0-5) /lpf U Epithel Cells (Auto) (0-5) /lpf Urine Bacteria (Auto) (Negative) Ur Renal Epithelial Cell Calcium Oxalate Crystal (None Prsent) Urine Mucus (None Prsent) 12/25/22 12/25/22 12/25/22 Range/Units 13:20 13:20 14:20 WBC (4.8-10.8) K/ul RBC (4.20-5.40) M/uL Hgb (12.0-16.0) g/dl Hct (37.0-47.0) % MCV (80.0-100.0) fL MCH (25.0-34.0) pg MCHC (32.0-36.0) g/dL RDW Std Deviation (36.4-46.3) fL RDW Coeff of Yee (11.5-14.5) % Plt Count (130-400) K/uL MPV (9.4-12.4) fL Absolute Nucleated RBC (0.00-0.12) K/uL Nucleated RBC % (auto) % Neutrophils % (Manual) % Lymphocytes % (Manual) % Monocytes % (Manual) % Eosinophils % (Manual) % Basophils % (Manual) % Metamyelocytes % (Man) % Myelocytes % (Man) % Promyelocytes % (Man) % Neutrophils # (Manual) (1.40-6.50) K/uL Total Absolute Neuts (1.4-6.5) K/uL Lymphocytes # (Manual) (1.2-3.4) K/uL Total Abs Lymphocytes (1.2-3.4) K/uL Monocytes # (Manual) (0.11-0.59) K/uL Eosinophils # (Manual) (0-0.50) K/uL Basophils # (Manual) (0-0.2) K/uL Metamyelocytes # (Man) (0-0) K/uL Myelocytes # (Manual) (0-0) K/uL Promyelocytes # (Man) (0-0) K/uL Toxic Granulation Platelet Estimate (Normal) Polychromasia Anisocytosis Macrocytosis Tear Drop Cells Schistocytes PT (9.0-12.0) Seconds INR (0.9-1.1) Sodium (136-145) mmol/L Potassium (3.5-5.1) mmol/L Chloride (98-107) mmol/L Carbon Dioxide (21-32) mmol/L Anion Gap (3-11) BUN (6-23) mg/dl Creatinine (0.6-1.2) mg/dl Est Cr Clr Drug Dosing ml/min Est GFR ( Amer) ml/min Est GFR (Non-Af Amer) ml/min BUN/Creatinine Ratio (10-20) Glucose (70-99(Fasting)) mg/dl Calcium (8.6-10.3) mg/dl Phosphorus (2.5-4.9) mg/dl Magnesium (1.7-2.4) mg/dl Total Bilirubin (0.2-1.0) mg/dl AST (13-39) U/L ALT (7-52) U/L Alkaline Phosphatase (34-104) U/L Troponin I High Sens (0-14) pg/ml B-Natriuretic Peptide 144 H (0-100) pg/ml Total Protein (6.0-8.3) gm/dl Albumin (3.4-5.0) gm/dl Globulin (2.5-4.0) gm/dl Albumin/Globulin Ratio (0.9-2) Lipase (11-82) U/L Procalcitonin (0-0.5) ng/ml TSH 8.340 H (0.300-4.500) uIu/ml Free T4 1.45 (0.61-1.60) ng/dl Urine Color Dark Yellow Urine Appearance Clear (Clear) Urine pH 7.0 (4.5-7.5) Ur Specific [place] 1.017 (1.000-1.030) Urine Protein Trace H (Negative) Urine Glucose (UA) Negative (Negative) Urine Ketones Trace H (Negative) Urine Blood Negative (Negative) Urine Nitrite Negative (Negative) Urine Bilirubin Negative (Negative) Urine Urobilinogen Negative (Negative) Ur Leukocyte Esterase 1+ H (Negative) Urine WBC (Auto) 10-30 H (0-5) /hpf Urine RBC (Auto) 10-30 H (0-4) /hpf U Hyaline Cast (Auto) 5-10 H (0-5) /lpf U Epithel Cells (Auto) >30 H (0-5) /lpf Urine Bacteria (Auto) 1+ H (Negative) Ur Renal Epithelial Cell Not Reportable Calcium Oxalate Crystal Present A (None Prsent) Urine Mucus Present A (None Prsent) 12/25/22 Range/Units 17:30 WBC (4.8-10.8) K/ul RBC (4.20-5.40) M/uL Hgb (12.0-16.0) g/dl Hct (37.0-47.0) % MCV (80.0-100.0) fL MCH (25.0-34.0) pg MCHC (32.0-36.0) g/dL RDW Std Deviation (36.4-46.3) fL RDW Coeff of Yee (11.5-14.5) % Plt Count (130-400) K/uL MPV (9.4-12.4) fL Absolute Nucleated RBC (0.00-0.12) K/uL Nucleated RBC % (auto) % Neutrophils % (Manual) % Lymphocytes % (Manual) % Monocytes % (Manual) % Eosinophils % (Manual) % Basophils % (Manual) % Metamyelocytes % (Man) % Myelocytes % (Man) % Promyelocytes % (Man) % Neutrophils # (Manual) (1.40-6.50) K/uL Total Absolute Neuts (1.4-6.5) K/uL Lymphocytes # (Manual) (1.2-3.4) K/uL Total Abs Lymphocytes (1.2-3.4) K/uL Monocytes # (Manual) (0.11-0.59) K/uL Eosinophils # (Manual) (0-0.50) K/uL Basophils # (Manual) (0-0.2) K/uL Metamyelocytes # (Man) (0-0) K/uL Myelocytes # (Manual) (0-0) K/uL Promyelocytes # (Man) (0-0) K/uL Toxic Granulation Platelet Estimate (Normal) Polychromasia Anisocytosis Macrocytosis Tear Drop Cells Schistocytes PT (9.0-12.0) Seconds INR (0.9-1.1) Sodium (136-145) mmol/L Potassium (3.5-5.1) mmol/L Chloride (98-107) mmol/L Carbon Dioxide (21-32) mmol/L Anion Gap (3-11) BUN (6-23) mg/dl Creatinine (0.6-1.2) mg/dl Est Cr Clr Drug Dosing ml/min Est GFR ( Amer) ml/min Est GFR (Non-Af Amer) ml/min BUN/Creatinine Ratio (10-20) Glucose (70-99(Fasting)) mg/dl Calcium (8.6-10.3) mg/dl Phosphorus (2.5-4.9) mg/dl Magnesium (1.7-2.4) mg/dl Total Bilirubin (0.2-1.0) mg/dl AST (13-39) U/L ALT (7-52) U/L Alkaline Phosphatase (34-104) U/L Troponin I High Sens (0-14) pg/ml B-Natriuretic Peptide (0-100) pg/ml Total Protein (6.0-8.3) gm/dl Albumin (3.4-5.0) gm/dl Globulin (2.5-4.0) gm/dl Albumin/Globulin Ratio (0.9-2) Lipase (11-82) U/L Procalcitonin 0.22 (0-0.5) ng/ml TSH (0.300-4.500) uIu/ml Free T4 (0.61-1.60) ng/dl Urine Color Urine Appearance (Clear) Urine pH (4.5-7.5) Ur Specific [place] (1.000-1.030) Urine Protein (Negative) Urine Glucose (UA) (Negative) Urine Ketones (Negative) Urine Blood (Negative) Urine Nitrite (Negative) Urine Bilirubin (Negative) Urine Urobilinogen (Negative) Ur Leukocyte Esterase (Negative) Urine WBC (Auto) (0-5) /hpf Urine RBC (Auto) (0-4) /hpf U Hyaline Cast (Auto) (0-5) /lpf U Epithel Cells (Auto) (0-5) /lpf Urine Bacteria (Auto) (Negative) Ur Renal Epithelial Cell Calcium Oxalate Crystal (None Prsent) Urine Mucus (None Prsent) Administered Medications Discontinued Medications Sodium Chloride (Nss) 500 mls @ 999 mls/hr IV .Q31M ONE Stop: 12/25/22 14:49 Last Infusion: 12/25/22 15:36 Dose: 0 mls/hr Documented By: Admin: 12/25/22 14:46 Dose: 999 mls/hr Documented By: RODNEY Ceftriaxone Sodium (Rocephin) 2,000 mg in 70 mls @ 140 mls/hr IV NOW STA Stop: 12/25/22 17:21 Last Infusion: 12/25/22 18:54 Dose: 0 mls/hr Documented By: Admin: 12/25/22 17:46 Dose: 140 mls/hr Documented By: RODNEY Ioversol (Ioversol 350 Mg 125ml Prefilled Syringe) 117 ml IV ONCE ONE Stop: 12/25/22 14:59 Last Admin: 12/25/22 14:58 Dose: 117 ml Documented By: MATIAS Imaging Data Radiologist's Impression: Chest X-Ray 12/25/22 12:52 SINGLE VIEW CHEST CLINICAL HISTORY: Edema. FINDINGS: An AP, portable, upright chest radiograph is compared to study dated 09/19/2022 correlation is made with chest CT dated 01/26/2021. The heart is enlarged and noting atherosclerotic calcification of the thoracic aorta. The pulmonary vasculature is noncongested. Chronic interstitial thickening similar to previous. A hiatal hernia is noted. There is bibasilar scarring/atelectasis. No airspace consolidation or large pleural effusion is identified. No pneumothorax is seen. The skeletal structures are osteopenic. The bony thorax is grossly intact. IMPRESSION: 1. Cardiomegaly with no active disease in the chest. There are 2. Hiatal hernia. ACT 112: Negative or not required by law. Electronically signed by: Boyd Stanton M.D. 12/25/2022 2:03 PM Abdomen/Pelvis CT 12/25/22 14:[address] WITH IV CONTRAST CT DOSE: 899.54 mGy.cm HISTORY: Myelofibrosis, abd pain BLE edema TECHNIQUE: Multiaxial CT images of the abdomen and pelvis were performed following the use of intravenous contrast. A dose lowering technique was utilized adhering to the principles of ALARA. COMPARISON STUDY: Abdomen and pelvis CT 09/25/2022. FINDINGS: The lung bases will be reported on the same day chest CT. No p neumoperitoneum. No pneumatosis. No acute fractures. There is a moderate hiatus hernia again noted. The main portal vein and splenic vein are dilated but patent. This remains unchanged. No hepatic masses identified. Prior cholecystectomy. The adrenal glands and pancreas unremarkable. Marked splenome alie again noted with the spleen measuring 19 cm in length. Heterogeneous enhancement of the splenic dome remains unchanged. Bilateral nephrolithiasis. No ureteral stones. No hydronephrosis. Stable bilateral renal hypodense lesions. These favor cysts. Calcified plaque within the normal caliber abdominal aorta. No retroperitoneal lymphadenopathy. Trace perihepatic and perisplenic ascites, unchanged. There is trace pelvic ascites also noted. The bladder is unremarkable. Prior hysterectomy. Colonic diverticulosis. No evidence for acute diverticulitis. Prior appendectomy. Mild circumferential thickening throughout the majority colon and rectum consistent with a nonspecific proctocolitis. This favors an infectious or inflammatory process. No dilated loops of bowel to suggest an obstruction. Moderate body wall edema is noted. IMPRESSION: 1. Mild circumferential thickening throughout the colon and rectum consistent with a nonspecific proctocolitis. This favors an infectious or inflammatory process. 2. Marked splenomegaly consistent with patient's known history of myelofibrosis. This remains unchanged. 3. Bilateral nephrolithiasis. No hydronephrosis. 4. Colonic diverticulosis. 5. Moderate hiatus hernia, unchanged. 6. Additional findings as described above. ACT 112: Negative or not required by law. Electronically signed by: Te Ham M.D. 12/25/2022 3:29 PM Chest CTA 12/25/22 14:19 CHEST CTA for PULMONARY ARTERIES CT DOSE: HISTORY: Myelofibrosis, sob, near syncope, r/o PE TECHNIQUE: Multiaxial CT images of the chest were performed following the intravenous administration of contrast to evaluate the pulmonary arteries. 3D/M aximal intensity projection images were also obtained. Sagittal and coronal reformations were also reviewed. A dose lowering technique was utilized adhering to the principles of ALARA. COMPARISON STUDY: Chest CT 01/26/2021. FINDINGS: Normal caliber thoracic aorta with no evidence for a dissection. The heart is normal in size. No pleural or pericardial effusions. Kyphotic deformity again noted within the thoracic spine. Abdominal structures will be reported on the same day abdomen and pelvis CT. There is a moderate hiatus hernia again noted. Otherwise, normal caliber esophagus. No mediastinal or hilar lymphadenopathy. No filling defects within the pulmonary arteries to suggest a pulmonary embolus. No acute fractures identified. The central airways are patent. No pneumothorax. Mild biapical pleural-parenchymal scarring. Stable 3 mm nodule in the left lung apex. Mild mosaic attenuation within the lungs. This suggests mild air trapping which could be due to small airways disease. No evidence for pulmonary edema. A few bibasilar linear densities favor scarring or subsegmental atelectasis. No focal lung consolidations to suggest pneumonia. Stable 5 mm groundglass nodule within the right lower lobe in image 127. IMPRESSION: 1. No evidence for a pulmonary embolus. 2. Mild air trapping seen within the lungs. This could be due to small airways disease. 3. Moderate hiatus hernia again noted. 4. Abdominal structures will be reported on the same day abdomen and pelvis CT. ACT 112: Negative or not required by law. Electronically signed by: Te Ham M.D. 12/25/2022 3:23 PM Venous Doppler Study 12/25/22 17:04 BILATERAL LOWER EXTREMITY VENOUS DOPPLER HISTORY: Bilateral lower extremity edema. COMPARISON STUDY: Right leg venous Doppler 09/19/2022. FINDINGS: Small amount of peripheral echogenic material at the bilateral common femoral/greater saphenous vein junction suggestive of nonocclusive chronic thrombus. Otherwise, the bilateral lower extremity deep venous structures are patent with no evidence for an acute DVT. IMPRESSION: 1. No acute DVT within the right or left lower extremity. 2. Small amount of chronic nonocclusive thrombus within the bilateral common femoral/greater saphenous vein junctions. ACT 112: Negative or not required by law. Electronically signed by: Te Ham M.D. 12/25/2022 6:50 PM Discharge Plan Visit Data Chief Complaint: Weakness Stated Complaint: LETHARGIC, EDEMA TO LEGS ED Provider: Duran Cuevas Discharge Problem: Acute UTI, Lymphedema, Primary hyperparathyroidism Patient Disposition: Admitted As Inpatient Discharge Instructions Interventions: ED Discharge Assessment Last Done: 12/25/22 20:11
[2022-12-25 13:58] LABS: Albumin Level 2.8 gm/dl (3.4-5.0); BUN Creatinine Ratio 26.2 (10-20); Bilirubin,Total 0.8 mg/dl (0.2-1.0); Calcium 8.8 mg/dl (8.6-10.3); Est GFR (African American) 94.5 ml/min; Est GFR (Non-African American) 81.5 ml/min; Globulin 1.4 gm/dl (2.5-4.0); Magnesium 1.9 mg/dl (1.7-2.4); Phosphorus 2.8 mg/dl (2.5-4.9); Potassium 3.9 mmol/L (3.5-5.1); Total Protein 4.2 gm/dl (6.0-8.3)
[2022-12-25 14:04] LABS: Troponin I High Sensitivity 6.4 pg/ml (0-14)
--- NOTE | 2022-12-25 14:05 | XRay Report ---
SINGLE VIEW CHEST CLINICAL HISTORY: Edema. FINDINGS: An AP, portable, upright chest radiograph is compared to study dated 09/19/2022 correlation is made with chest CT dated 01/26/2021. The heart is enlarged and noting atherosclerotic calcification of the thoracic aorta. The pulmonary vasculature is noncongested. Chronic interstitial thickening si milar to previous. A hiatal hernia is noted. There is bibasilar scarring/atelectasis. No airspace con solidation or large pleural effusion is identified. No pneumothorax is seen. The skeletal structures are osteopenic. The bony thorax is grossly intact. IMPRESSION: 1. Cardiomegaly with no active disease in the chest. There are 2. Hiatal hernia. ACT 112: Negative or not required by law. Electronically signed by: Boyd Stanton M.D. 12/25/2022 2:03 PM
[2022-12-25 14:13] LABS: Thyroid Stimulating Hormone 8.34 uIu/ml (0.300-4.500)
[2022-12-25 14:16] LABS: INR 1.2 (0.9-1.1); Prothrombin Time 13.2 Seconds (9.0-12.0)
[2022-12-25] MEDS ORDERED: SODIUM CHLORIDE 0.9% 500 ML IV ONE (14:19)
[2022-12-25 14:23] LABS: ALC (manual) 1.06 K/uL (1.2-3.4); ANC (manual) 13.38 K/uL (1.4-6.5); Anisocytosis Present; Basophils # (manual) 0.35 K/uL (0-0.2); Basophils % (manual) 2 %; Eosinophils # (manual) 0.35 K/uL (0-0.50); Eosinophils % (manual) 2 %; Hemoglobin 8.6 g/dl (12.0-16.0); Lymphocytes # (manual) 1.06 K/uL (1.2-3.4); Lymphocytes % (manual) 6 %; Macrocytosis Present; Mean Corpuscular Hemoglobin 38.2 pg (25.0-34.0); Mean Corpuscular Hgb Conc 33.1 g/dL (32.0-36.0); Mean Corpuscular Volume 115.6 fL (80.0-100.0); Mean Platelet Volume 12.2 fL (9.4-12.4); Metamyelocytes # (manual) 0.53 K/uL (0-0); Metamyelocytes % (manual) 3 %; Monocytes # (manual) 1.06 K/uL (0.11-0.59); Monocytes % (manual) 6 %; Myelocytes # (manual) 0.35 K/uL (0-0); Myelocytes % (manual) 2 %; Neutrophils # (manual) 13.38 K/uL (1.40-6.50); Neutrophils % (manual) 76 %; Nucleated RBC # (auto) 0.19 K/uL (0.00-0.12); Nucleated RBC % (auto) 1.1 %; Platelet Count 87 K/uL (130-400); Platelet Estimate Decreased (Normal); Polychromasia 1+; Promyelocytes # (manual) 0.53 K/uL (0-0); Promyelocytes % (manual) 3 %; RDW Coefficient of Variation 27.3 % (11.5-14.5); RDW Standard Deviation 114.2 fL (36.4-46.3); Red Blood Count 2.25 M/uL (4.20-5.40); Schistocytes 1+; Tear Drop Cells 1+; Toxic Granulation 1+
[2022-12-25 14:51] LABS: Appearance Urine Clear (Clear); Bilirubin Urine Negative (Negative); Blood Urine Negative (Negative); Color Urine Dark Yellow; Epithelial Cell Urine Auto >30 /lpf (0-5); Glucose Urine UA Negative (Negative); Ketones Urine Trace (Negative); Leukocyte Esterase Urine 1+ (Negative); Nitrite Urine Negative (Negative); Protein Urine Trace (Negative); Specific Gravity Urine 1.017 (1.000-1.030); Urobilinogen Urine Negative (Negative)
[2022-12-25] MEDS ORDERED: IOVERSOL 350 MG 125mL Prefilled Syringe IV ONE (14:58)
[2022-12-25 15:06] LABS: T4 Free Thyroxine 1.45 ng/dl (0.61-1.60)
[2022-12-25 15:10] LABS: Calcium Oxalate Crystals Urine Present (None Prsent)
[2022-12-25 15:11] LABS: Bacteria Urine Automated 1+ (Negative); Mucus Urine Present (None Prsent)
--- NOTE | 2022-12-25 15:25 | CT Scan Report ---
CHEST CTA for PULMONARY ARTERIES CT DOSE: HISTORY: Myelofibrosis, sob, near syncope, r/o PE TECHNIQUE: Multiaxial CT images of the chest were performed following the intravenous administration of contrast to evaluate the pulmonary arteries. 3D/Maximal intensity projection images were also obta ined. Sagittal and coronal reformations were also reviewed. A dose lowering technique was utilized a dhering to the principles of ALARA. COMPARISON STUDY: Chest CT 01/26/2021. FINDINGS: Normal caliber thoracic aorta with no evidence for a dissection. The heart is normal in siz e. No pleural or pericardial effusions. Kyphotic deformity again noted within the thoracic spine. Abd ominal structures will be reported on the same day abdomen and pelvis CT. There is a moderate hiatus hernia again noted. Otherwise, normal caliber esophagus. No mediastinal or hilar lymphadenopathy. No filling defects within the pulmonary arteries to suggest a pulmonary embolus. No acute fractures iden tified. The central airways are patent. No pneumothorax. Mild biapical pleural-parenchymal scarring. Stable 3 mm nodule in the left lung apex. Mild mosaic attenuation within the lungs. This suggests mil d air trapping which could be due to small airways disease. No evidence for pulmonary edema. A few bi basilar linear densities favor scarring or subsegmental atelectasis. No focal lung consolidations to suggest pneumonia. Stable 5 mm groundglass nodule within the right lower lobe in image 127. IMPRESSION: 1. No evidence for a pulmonary embolus. 2. Mild air trapping seen within the lungs. This could be due to small airways disease. 3. Moderate hiatus hernia again noted. 4. Abdominal structures will be reported on the same day abdomen and pelvis CT. ACT 112: Negative or not required by law. Electronically signed by: Te Ham M.D. 12/25/2022 3:23 PM
--- NOTE | 2022-12-25 15:32 | CT Scan Report ---
ABDOMEN AND PELVIS CT WITH IV CONTRAST CT DOSE: 899.54 mGy.cm HISTORY: Myelofibrosis, abd pain BLE edema TECHNIQUE: Multiaxial CT images of the abdomen and pelvis were performed following the use of intrave nous contrast. A dose lowering technique was utilized adhering to the principles of ALARA. COMPARISON STUDY: Abdomen and pelvis CT 09/25/2022. FINDINGS: The lung bases will be reported on the same day chest CT. No pneumoperitoneum. No pneumatos is. No acute fractures. There is a moderate hiatus hernia again noted. The main portal vein and splen ic vein are dilated but patent. This remains unchanged. No hepatic masses identified. Prior cholecyst ectomy. The adrenal glands and pancreas unremarkable. Marked splenomegaly again noted with the spleen measuring 19 cm in length. Heterogeneous enhancement of the splenic dome remains unchanged. Bilatera l nephrolithiasis. No ureteral stones. No hydronephrosis. Stable bilateral renal hypodense lesions. T hese favor cysts. Calcified plaque within the normal caliber abdominal aorta. No retroperitoneal lymp hadenopathy. Trace perihepatic and perisplenic ascites, unchanged. There is trace pelvic ascites also noted. The bladder is unremarkable. Prior hysterectomy. Colonic diverticulosis. No evidence for acut e diverticulitis. Prior appendectomy. Mild circumferential thickening throughout the majority colon a nd rectum consistent with a nonspecific proctocolitis. This favors an infectious or inflammatory proc ess. No dilated loops of bowel to suggest an obstruction. Moderate body wall edema is noted. IMPRESSION: 1. Mild circumferential thickening throughout the colon and rectum consistent with a nonspecific proc tocolitis. This favors an infectious or inflammatory process. 2. Marked splenomegaly consistent with patient's known history of myelofibrosis. This remains unchang ed. 3. Bilateral nephrolithiasis. No hydronephrosis. 4. Colonic diverticulosis. 5. Moderate hiatus hernia, unchanged. 6. Additional findings as described above. ACT 112: Negative or not required by law. Electronically signed by: Te Ham M.D. 12/25/2022 3:29 PM
[2022-12-25] MEDS ORDERED: cefTRIAXone SODIUM 2,000 MG/70 ML BAG IV STA (16:52)
--- NOTE | 2022-12-25 17:06 | History & Physical Report ---
Date of Service December 25, 2022 Assessment & Plan (1) Near syncope: (2) Lymphedema: Plan: Pt w/ near syncope when trying to have a BM. Also w/ significant LLE edema which is new for her (chronic R LL edema) - likely vasovagal episode or orthostatic hypotension - ECG reviewed and will admit pt on telemetry and will con. to monitor - concern for poss. UTI, UA obtained in ED and pt started on ceftriaxone in the ED, will cont. for now - urine and blood culture obtained in ED and pending - Leukocytosis - WBC 17K which is not unusual for her though given her myeloproliferative disorder and chronic steroid use - given new L LE edema - doppler obtained - IMPRESSION: 1. No acute DVT within the right or left lower extremity. 2. Small amount of chronic nonocclusive thrombus within the bilateral common femoral/greater saphenous vein junctions. Discussed findings of Doppler US w/ Dr. Valiente, recommends lovenox 40 daily as DVT ppx - on discharge, and outpt follow up Chronic medical conditions: Chronic leukocytosis, myeloproliferative disorder -myelofibrosis, chronic steroid use --WBC elevation seems within her baseline.Follows w/ Dr. Zhou (heme/onc in [place]) Constipation - con. 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 DNR/DNI History of Present Illness Chief Complaint: Left leg edema, weeping, ? 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 Pt also has had L leg edema for past 2-3 weeks, now unfortunately significantly weeping after skin punctured by a fingernail when applying stockings. Pt's daughter and grand-daughter present at the bedside and also provide hx. They say pt had UTI in October and pt was completely asymptomatic at that time. When reviewing [facility] records, pt was diagnosed w/ Citrobacter UTI. Family and pt confirm that she did finish the treatment. Pt tells me that when she was on the toilet she felt weak, clammy and thought she would pass out. Her neighbor checked on her and contacted her daughter. In the ED pt received small amount of NS IV, blood cultures and urine cultx were obtained. She was started on ppx ceftriaxone. Allergies Allergy/AdvReac Type Severity Reaction Status Date / Time naproxen Allergy Mild RASH Verified 12/25/22 16:45 niacin Allergy Mild RASH Verified 12/25/22 16:45 Home Medications Medication Instructions Recorded Confirmed Type dorzolamide 2 %-timolol 0.5 % (PF) 1 drp OPB BID 05/24/19 12/25/22 History eye drops doxepin 10 mg capsule 10 mg PO HS 05/24/19 12/25/22 History mycophenolate mofetil 500 mg tablet 500 mg PO DAILY 10/29/20 12/25/22 History omeprazole 20 mg capsule,delayed 20 mg PO DAILYBB 10/29/20 12/25/22 History release prednisone 10 mg tablet 10 mg PO DAILY 01/24/21 12/25/22 History cyanocobalamin (vitamin B-12) 100 100 mcg PO DAILY 06/22/21 12/25/22 History mcg tablet ferrous sulfate 325 mg (65 mg 325 mg PO DAILY 06/22/21 12/25/22 History iron) tablet (FeroSul) acetaminophen 500 mg tablet 1,000 mg PO Q6H PRN Pain 09/19/22 12/25/22 History (Tylenol Extra Strength) cholecalciferol (vitamin D3) 25 25 mcg PO DAILY 09/19/22 12/25/22 History mcg (1,000 unit) tablet (Vitamin D3) dexamethasone 0.5 mg/5 mL oral 0.5 mg PO BID PRN mouth ulcers 12/25/22 12/25/22 History elixir levothyroxine 100 mcg tablet 100 mcg PO QAM 12/25/22 12/25/22 History linaclotide 72 mcg capsule 72 mcg PO DAILY 12/25/22 12/25/22 History (Linzess) polyethylene glycol 3350 17 gram 17 g PO DAILY 12/25/22 12/25/22 History oral powder packet (Miralax) Past Med/Surg History Medical History Chronic use of steroids Glaucoma Hiatal hernia Hyperlipidemia Diet controlled Hyperparathyroidism 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 Zhou in [place] (oncologist) Thrombocytopenia Surgical History History of bowel resection FOR PERFORATION WITH COLOSTOMY History of cholecystectomy History of colonoscopy History of colostomy reversal History of hysterectomy TOTAL History of lithotripsy Hx of bilateral cataract extraction Hx of cystoscopy Previous back surgery LOWER BACK-NO METAL IMPLANTED S/P debridement OF STOMA SITE S/P thyroidectomy FOR GOITER Family History Father CHF (congestive heart failure) Mother Hypertension Social History Smoking Status: Former smoker Tobacco Type: Cigarettes Second Hand Exposure: No; Do You Dip or Chew Tobacco: No; Hx Alcohol Use: No Hx Substance Use: No Preferred Language: Faroese Communication Ability: Effective 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 How many Children do You have: 2 Feels Safe at Home: Yes Assistive Devices: Walker Review of Systems Review of Systems: All systems reviewed & are unremarkable except as noted in HPI & below Physical Exam Constitutional: WD/WN, vitals as above (elderly thin F in NAD) Eyes: PERRL, conjunctivae normal, anicteric sclerae ENMT: external ear and nose normal, oropharynx normal Neck: trachea midline, no thyromegaly Respiratory: normal respiratory effort, lungs clear to auscultation Cardiovascular: RRR, no murmur, no edema Gastrointestinal (Abdomen): Inspection/Auscultation: + abdomen distended (but soft, and nontender to palpation) and normal bowel sounds Musculoskeletal: Head/Neck/Chest: normocephalic and head atraumatic moves all extremities, skin tear at LLE mid gary, LE edema R>L Skin: no rashes, warm and dry Neurologic: PERRL, EOMI, accommodation nl, no face palsy, no dysarthria Psychiatric: A+Ox3, euthymic affect Results & Data Results & Data Vital Signs (Past 12 Hours) Vital Signs Temp Pulse Pulse Resp BP BP Pulse Ox 12/25/22 16:02 90 18 121/48 L 97 12/25/22 14:22 86 12/25/22 13:05 98 12/25/22 13:05 36.5 C 87 18 114/53 L 98 O2 Del Method 12/25/22 16:02 Room Air 12/25/22 14:22 12/25/22 13:05 Room Air 12/25/22 13:05 Room Air Laboratory Results 12/25/22 12/25/22 12/25/22 Range/Units 14:20 13:20 13:20 WBC (4.8-10.8) K/ul RBC (4.20-5.40) M/uL Hgb (12.0-16.0) g/dl Hct (37.0-47.0) % MCV (80.0-100.0) fL MCH (25.0-34.0) pg MCHC (32.0-36.0) g/dL RDW Std Deviation (36.4-46.3) fL RDW Coeff of Yee (11.5-14.5) % Plt Count (130-400) K/uL MPV (9.4-12.4) fL Absolute Nucleated RBC (0.00-0.12) K/uL Nucleated RBC % (auto) % Neutrophils % (Manual) % Lymphocytes % (Manual) % Monocytes % (Manual) % Eosinophils % (Manual) % Basophils % (Manual) % Metamyelocytes % (Man) % Myelocytes % (Man) % Promyelocytes % (Man) % Neutrophils # (Manual) (1.40-6.50) K/uL Total Absolute Neuts (1.4-6.5) K/uL Lymphocytes # (Manual) (1.2-3.4) K/uL Total Abs Lymphocytes (1.2-3.4) K/uL Monocytes # (Manual) (0.11-0.59) K/uL Eosinophils # (Manual) (0-0.50) K/uL Basophils # (Manual) (0-0.2) K/uL Metamyelocytes # (Man) (0-0) K/uL Myelocytes # (Manual) (0-0) K/uL Promyelocytes # (Man) (0-0) K/uL Toxic Granulation Platelet Estimate (Normal) Polychromasia Anisocytosis Macrocytosis Tear Drop Cells Schistocytes PT (9.0-12.0) Seconds INR (0.9-1.1) Sodium (136-145) mmol/L Potassium (3.5-5.1) mmol/L Chloride (98-107) mmol/L Carbon Dioxide (21-32) mmol/L Anion Gap (3-11) BUN (6-23) mg/dl Creatinine (0.6-1.2) mg/dl Est Cr Clr Drug Dosing ml/min Est GFR ( Amer) ml/min Est GFR (Non-Af Amer) ml/min BUN/Creatinine Ratio (10-20) Glucose (70-99(Fasting)) mg/dl Calcium (8.6-10.3) mg/dl Phosphorus (2.5-4.9) mg/dl Magnesium (1.7-2.4) mg/dl Total Bilirubin (0.2-1.0) mg/dl AST (13-39) U/L ALT (7-52) U/L Alkaline Phosphatase (34-104) U/L Troponin I High Sens (0-14) pg/ml B-Natriuretic Peptide 144 H (0-100) pg/ml Total Protein (6.0-8.3) gm/dl Albumin (3.4-5.0) gm/dl Globulin (2.5-4.0) gm/dl Albumin/Globulin Ratio (0.9-2) Lipase (11-82) U/L TSH 8.340 H (0.300-4.500) uIu/ml Free T4 1.45 (0.61-1.60) ng/dl Urine Color Dark Yellow Urine Appearance Clear (Clear) Urine pH 7.0 (4.5-7.5) Ur Specific [place] 1.017 (1.000-1.030) Urine Protein Trace H (Negative) Urine Glucose (UA) Negative (Negative) Urine Ketones Trace H (Negative) Urine Blood Negative (Negative) Urine Nitrite Negative (Negative) Urine Bilirubin Negative (Negative) Urine Urobilinogen Negative (Negative) Ur Leukocyte Esterase 1+ H (Negative) Urine WBC (Auto) 10-30 H (0-5) /hpf Urine RBC (Auto) 10-30 H (0-4) /hpf U Hyaline Cast (Auto) 5-10 H (0-5) /lpf U Epithel Cells (Auto) >30 H (0-5) /lpf Urine Bacteria (Auto) 1+ H (Negative) Ur Renal Epithelial Cell Not Reportable Calcium Oxalate Crystal Present A (None Prsent) Urine Mucus Present A (None Prsent) 12/25/22 12/25/22 12/25/22 Range/Units 13:20 13:08 13:08 WBC 17.60 H (4.8-10.8) K/ul RBC 2.25 L (4.20-5.40) M/uL Hgb 8.6 L (12.0-16.0) g/dl Hct 26.0 L (37.0-47.0) % MCV 115.6 H (80.0-100.0) fL MCH 38.2 H (25.0-34.0) pg MCHC 33.1 (32.0-36.0) g/dL RDW Std Deviation 114.2 H (36.4-46.3) fL RDW Coeff of Yee 27.3 H (11.5-14.5) % Plt Count 87 L (130-400) K/uL MPV 12.2 (9.4-12.4) fL Absolute Nucleated RBC 0.19 H (0.00-0.12) K/uL Nucleated RBC % (auto) 1.1 % Neutrophils % (Manual) 76 % Lymphocytes % (Manual) 6 % Monocytes % (Manual) 6 % Eosinophils % (Manual) 2 % Basophils % (Manual) 2 % Metamyelocytes % (Man) 3 % Myelocytes % (Man) 2 % Promyelocytes % (Man) 3 % Neutrophils # (Manual) 13.38 H (1.40-6.50) K/uL Total Absolute Neuts 13.38 H (1.4-6.5) K/uL Lymphocytes # (Manual) 1.06 L (1.2-3.4) K/uL Total Abs Lymphocytes 1.06 L (1.2-3.4) K/uL Monocytes # (Manual) 1.06 H (0.11-0.59) K/uL Eosinophils # (Manual) 0.35 (0-0.50) K/uL Basophils # (Manual) 0.35 H (0-0.2) K/uL Metamyelocytes # (Man) 0.53 H (0-0) K/uL Myelocytes # (Manual) 0.35 H (0-0) K/uL Promyelocytes # (Man) 0.53 H (0-0) K/uL Toxic Granulation 1+ Platelet Estimate Decreased L (Normal) Polychromasia 1+ Anisocytosis Present Macrocytosis Present Tear Drop Cells 1+ Schistocytes 1+ PT 13.2 H (9.0-12.0) Seconds INR 1.2 H (0.9-1.1) Sodium 128 L (136-145) mmol/L Potassium 3.9 (3.5-5.1) mmol/L Chloride 99 (98-107) mmol/L Carbon Dioxide 28 (21-32) mmol/L Anion Gap 1 L (3-11) BUN 16 (6-23) mg/dl Creatinine 0.61 (0.6-1.2) mg/dl Est Cr Clr Drug Dosing 54.0 ml/min Est GFR ( Amer) 94.5 ml/min Est GFR (Non-Af Amer) 81.5 ml/min BUN/Creatinine Ratio 26.2 H (10-20) Glucose 119 H (70-99(Fasting)) mg/dl Calcium 8.8 (8.6-10.3) mg/dl Phosphorus 2.8 (2.5-4.9) mg/dl Magnesium 1.9 (1.7-2.4) mg/dl Total Bilirubin 0.8 (0.2-1.0) mg/dl AST 9 L (13-39) U/L ALT 7 (7-52) U/L Alkaline Phosphatase 57 (34-104) U/L Troponin I High Sens 6.4 (0-14) pg/ml B-Natriuretic Peptide (0-100) pg/ml Total Protein 4.2 L (6.0-8.3) gm/dl Albumin 2.8 L (3.4-5.0) gm/dl Globulin 1.4 L (2.5-4.0) gm/dl Albumin/Globulin Ratio 2.0 (0.9-2) Lipase 6 L (11-82) U/L TSH (0.300-4.500) uIu/ml Free T4 (0.61-1.60) ng/dl Urine Color Urine Appearance (Clear) Urine pH (4.5-7.5) Ur Specific [place] (1.000-1.030) Urine Protein (Negative) Urine Glucose (UA) (Negative) Urine Ketones (Negative) Urine Blood (Negative) Urine Nitrite (Negative) Urine Bilirubin (Negative) Urine Urobilinogen (Negative) Ur Leukocyte Esterase (Negative) Urine WBC (Auto) (0-5) /hpf Urine RBC (Auto) (0-4) /hpf U Hyaline Cast (Auto) (0-5) /lpf U Epithel Cells (Auto) (0-5) /lpf Urine Bacteria (Auto) (Negative) Ur Renal Epithelial Cell Calcium Oxalate Crystal (None Prsent) Urine Mucus (None Prsent) Diagnostic Findings CT PE MPRESSION: 1. No evidence for a pulmonary embolus. 2. Mild air trapping seen within the lungs. This could be due to small airways disease. 3. Moderate hiatus hernia again noted. 4. Abdominal structures will be reported on the same day abdomen and pelvis CT. CT abd/ pelvis IMPRESSION: 1. Mild circumferential thickening throughout the colon and rectum consistent with a nonspecific proctocolitis. This favors an infectious or inflammatory process. 2. Marked splenomegaly consistent with patient's known history of myelofibrosis. This remains unchanged. 3. Bilateral nephrolithiasis. No hydronephrosis. 4. Colonic diverticulosis. 5. Moderate hiatus hernia, unchanged. 6. Additional findings as described above. CXR IMPRESSION: 1. Cardiomegaly with no active disease in the chest. 2. Hiatal hernia. LE Doppler
[2022-12-25] MEDS ORDERED: ACETAMINOPHEN 325 MG TAB PO PRN (18:35)
--- NOTE | 2022-12-25 18:52 | Ultrasound Report ---
BILATERAL LOWER EXTREMITY VENOUS DOPPLER HISTORY: Bilateral lower extremity edema. COMPARISON STUDY: Right leg venous Doppler 09/19/2022. FINDINGS: Small amount of peripheral echogenic material at the bilateral common femoral/greater saphe nous vein junction suggestive of nonocclusive chronic thrombus. Otherwise, the bilateral lower extrem ity deep venous structures are patent with no evidence for an acute DVT. IMPRESSION: 1. No acute DVT within the right or left lower extremity. 2. Small amount of chronic nonocclusive thrombus within the bilateral common femoral/greater saphenou s vein junctions. ACT 112: Negative or not required by law. Electronically signed by: Te Ham M.D. 12/25/2022 6:50 PM
[2022-12-25] MEDS ORDERED: ENOXAPARIN INJ 40 MG/0.4 ML SYR SQ ONE (19:15)
[2022-12-25] MEDS ORDERED: MELATONIN 3 MG TAB PO PRN (19:33)
[2022-12-25] MEDS ORDERED: dexAMETHasone 2 MG/20 ML UDP PO PRN (20:11)
[2022-12-25] MEDS ORDERED: ACETAMINOPHEN 500 MG TAB PO PRN (20:11)
[2022-12-25] MEDS ORDERED: DOXEPIN HCL 10 MG CAPSULE PO SCH (21:00)
[2022-12-26 05:22] LABS: BUN Creatinine Ratio 27.3 (10-20); Calcium 8.8 mg/dl (8.6-10.3); Creatinine Clr Calc Pharmacy 59.9 ml/min; Est GFR (African American) 97.7 ml/min; Est GFR (Non-African American) 84.3 ml/min; Magnesium 1.9 mg/dl (1.7-2.4); Phosphorus 3.1 mg/dl (2.5-4.9); Potassium 4.1 mmol/L (3.5-5.1)
[2022-12-26 06:59] LABS: Anisocytosis Present; Basophils # (manual) 0.68 K/uL (0-0.2); Basophils % (manual) 4 %; Blast # (manual) 0.17 K/uL (0-0); Blast Cells % (manual) 1 %; Eosinophils # (manual) 0.34 K/uL (0-0.50); Eosinophils % (manual) 2 %; Hematocrit (blood only) 25.3 % (37.0-47.0); Hemoglobin 8.5 g/dl (12.0-16.0); Lymphocytes % (manual) 7 %; Mean Corpuscular Hemoglobin 38.6 pg (25.0-34.0); Mean Corpuscular Hgb Conc 33.6 g/dL (32.0-36.0); Mean Platelet Volume 11.5 fL (9.4-12.4); Metamyelocytes # (manual) 0.68 K/uL (0-0); Metamyelocytes % (manual) 4 %; Monocytes % (manual) 7 %; Myelocytes # (manual) 0.34 K/uL (0-0); Myelocytes % (manual) 2 %; Neutrophils % (manual) 73 %; Nucleated RBC % (auto) 1.2 %; Platelet Count 85 K/uL (130-400); Polychromasia 1+; RDW Coefficient of Variation 27.2 % (11.5-14.5); RDW Standard Deviation 114.9 fL (36.4-46.3); Tear Drop Cells 2+; White Blood Count 17.12 K/ul (4.8-10.8)
[2022-12-26] MEDS: DORZOLAMIDE/TIMOLOL 22.3/6.8MG/ML 10 ML BTL OP SCH ×3 (08:39→19:57)
[2022-12-26] MEDS: LEVOTHYROXINE SODIUM 100 MCG TABLET PO SCH (08:39)
[2022-12-26] MEDS: PANTOprazole 40 MG TAB PO SCH (08:39)
[2022-12-26] MEDS: CYANOCOBALAMIN (B-12) 100 MCG TABLET PO SCH (08:39)
[2022-12-26] MEDS: linaCLOtide 72 MCG CAPSULE PO SCH (08:39)
[2022-12-26] MEDS: MYCOPHENOLATE MOFETIL 250 MG CAP PO SCH (08:40)
[2022-12-26] MEDS: POLYETHYLENE (MIRALAX) 17 GM PACK PO SCH (08:40)
[2022-12-26] MEDS: predniSONE 10 MG TABLET PO SCH (08:40)
--- NOTE | 2022-12-26 14:04 | Hospitalist Progress Note ---
Date of Service December 26, 2022 Assessment & Plan (1) Near syncope: (2) Lymphedema: Plan: Pt w/ near syncope when trying to have a BM. Also w/ significant LLE edema which is new for her (chronic R LL edema) likely vasovagal episode or orthostatic hypotension ECG reviewed; sinus rhythm with PACs. No significant change compared to previous EKG. Urinalysis suggestive of infection; urine culture shows more than 3 types of organism; all high counts. Blood culture pending Leukocytosis present; given history of myeloproliferative disorder. Continue on ceftriaxone for now. We will follow-up on blood culture. If blood culture is negative; will treat for uncomplicated UTI with antibiotic for 3 to 5 days. Given new L LE edema Doppler obtained IMPRESSION: 1. No acute DVT within the right or left lower extremity. 2. Small amount of chronic nonocclusive thrombus within the bilateral common femoral/greater saphenous vein junctions. Admitting hospitalist discussed findings of Doppler US w/ Dr. Valiente, Recommends Lovenox 40 daily as DVT ppx Chronic medical conditions: Chronic leukocytosis, myeloproliferative disorder -myelofibrosis, chronic steroid use --WBC elevation seems within her baseline.Follows w/ Dr. Zhou (heme/onc in [place]) Constipation - con. 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 DNR/DNI Time spent evaluating patient, direct bedside care, chart review, placing orders, interpretation of diagnostic studies, discussion with consultants, patient, and family members, as well as other required patient management activities is 60 minutes. Please note the above document was generated using voice recognition software. It may contain grammatical, syntax or spelling errors. Any formal questions or concerns about the content, text or information contained within the body of this dictation should be directly addressed to the provider for clarification Admission and Anticipated Discharge Date Admission Date: December 25, 2022 Subjective Patient seen and examined at bedside. She reports that she is feeling much better. She reports she walked with physical therapy. Review of Systems Review of Systems: All systems reviewed & are unremarkable except as noted in Subjective Physical Exam Physical Exam: Constitutional: Alert oriented x3; not in any distress. Respiratory: Bilateral vesicular breath sound. Cardiovascular: RRR, no murmur, no edema Vessels: no JVD or carotid bruit Chest: normal inspection of chest Abdomen: normal bowel sounds, soft, nontender, no hepatosplenomegaly Musculoskeletal: no cyanosis or clubbing, extremities motor strength 5/5. Left leg asymmetrically swollen compared to right. Reports history of lymphedema. Skin: no rashes, warm and dry normal turgor Neurologic: PERRL, EOMI, accommodation nl, no face palsy, no dysarthria CN's II- XI intact bilaterally and moves all extremities Psychiatric: A+Ox3, euthymic affect Results & Data Results & Data Vital Signs (Past 12 Hours) Vital Signs Pulse Resp BP Pulse Ox O2 Del Method 12/26/22 12:26 88 18 128/57 L 97 Room Air 12/26/22 09:25 Room Air 12/26/22 09:08 89 20 128/47 L 97 Room Air 12/26/22 09:03 81 18 128/48 L 96 Room Air Laboratory Results Laboratory Results WBC 17.12 K/ul (4.8-10.8) H 12/26/22 04:34 RBC 2.20 M/uL (4.20-5.40) L 12/26/22 04:34 Hgb 8.5 g/dl (12.0-16.0) L 12/26/22 04:34 Hct 25.3 % (37.0-47.0) L 12/26/22 04:34 MCV 115.0 fL (80.0-100.0) H 12/26/22 04:34 MCH 38.6 pg (25.0-34.0) H 12/26/22 04:34 MCHC 33.6 g/dL (32.0-36.0) 12/26/22 04:34 RDW Std Deviation 114.9 fL (36.4-46.3) H 12/26/22 04:34 RDW Coeff of Yee 27.2 % (11.5-14.5) H 12/26/22 04:34 Plt Count 85 K/uL (130-400) L 12/26/22 04:34 MPV 11.5 fL (9.4-12.4) 12/26/22 04:34 Absolute Nucleated RBC 0.20 K/uL (0.00-0.12) H 12/26/22 04:34 Nucleated RBC % (auto) 1.2 % 12/26/22 04:34 Neutrophils % (Manual) 73 % 12/26/22 04:34 Lymphocytes % (Manual) 7 % 12/26/22 04:34 Monocytes % (Manual) 7 % 12/26/22 04:34 Eosinophils % (Manual) 2 % 12/26/22 04:34 Basophils % (Manual) 4 % 12/26/22 04:34 Metamyelocytes % (Man) 4 % 12/26/22 04:34 Myelocytes % (Man) 2 % 12/26/22 04:34 Promyelocytes % (Man) 3 % 12/25/22 13:20 Blast Cells % (Manual) 1 % 12/26/22 04:34 Neutrophils # (Manual) 12.50 K/uL (1.40-6.50) H 12/26/22 04:34 Total Absolute Neuts 12.50 K/uL (1.4-6.5) H 12/26/22 04:34 Lymphocytes # (Manual) 1.20 K/uL (1.2-3.4) 12/26/22 04:34 Total Abs Lymphocytes 1.20 K/uL (1.2-3.4) 12/26/22 04:34 Monocytes # (Manual) 1.20 K/uL (0.11-0.59) H 12/26/22 04:34 Eosinophils # (Manual) 0.34 K/uL (0-0.50) 12/26/22 04:34 Basophils # (Manual) 0.68 K/uL (0-0.2) H 12/26/22 04:34 Metamyelocytes # (Man) 0.68 K/uL (0-0) H 12/26/22 04:34 Myelocytes # (Manual) 0.34 K/uL (0-0) H 12/26/22 04:34 Promyelocytes # (Man) 0.53 K/uL (0-0) H 12/25/22 13:20 Blast Cells # (Man) 0.17 K/uL (0-0) H 12/26/22 04:34 Toxic Granulation 1+ 12/25/22 13:20 Platelet Estimate Decreased (Normal) L 12/25/22 13:20 Polychromasia 1+ 12/26/22 04:34 Anisocytosis Present 12/26/22 04:34 Macrocytosis Present 12/25/22 13:20 Tear Drop Cells 2+ 12/26/22 04:34 Schistocytes 1+ 12/25/22 13:20 PT 13.2 Seconds (9.0-12.0) H 12/25/22 13:08 INR 1.2 (0.9-1.1) H 12/25/22 13:08 Sodium 129 mmol/L (136-145) L 12/26/22 04:34 Potassium 4.1 mmol/L (3.5-5.1) 12/26/22 04:34 Chloride 101 mmol/L (98-107) 12/26/22 04:34 Carbon Dioxide 26 mmol/L (21-32) 12/26/22 04:34 Anion Gap 2 (3-11) L 12/26/22 04:34 BUN 15 mg/dl (6-23) 12/26/22 04:34 Creatinine 0.55 mg/dl (0.6-1.2) L 12/26/22 04:34 Est Cr Clr Drug Dosing 59.9 ml/min 12/26/22 04:34 Est GFR ( Amer) 97.7 ml/min 12/26/22 04:34 Est GFR (Non-Af Amer) 84.3 ml/min 12/26/22 04:34 BUN/Creatinine Ratio 27.3 (10-20) H 12/26/22 04:34 Glucose 107 mg/dl (70-99(Fasting)) H 12/26/22 04:34 Calcium 8.8 mg/dl (8.6-10.3) 12/26/22 04:34 Phosphorus 3.1 mg/dl (2.5-4.9) 12/26/22 04:34 Magnesium 1.9 mg/dl (1.7-2.4) 12/26/22 04:34 Total Bilirubin 0.8 mg/dl (0.2-1.0) 12/25/22 13:08 AST 9 U/L (13-39) L 12/25/22 13:08 ALT 7 U/L (7-52) 12/25/22 13:08 Alkaline Phosphatase 57 U/L (34-104) 12/25/22 13:08 Troponin I High Sens 6.4 pg/ml (0-14) 12/25/22 13:08 B-Natriuretic Peptide 144 pg/ml (0-100) H 12/25/22 13:20 Total Protein 4.2 gm/dl (6.0-8.3) L 12/25/22 13:08 Albumin 2.8 gm/dl (3.4-5.0) L 12/25/22 13:08 Globulin 1.4 gm/dl (2.5-4.0) L 12/25/22 13:08 Albumin/Globulin Ratio 2.0 (0.9-2) 12/25/22 13:08 Lipase 6 U/L (11-82) L 12/25/22 13:08 Procalcitonin 0.22 ng/ml (0-0.5) 12/25/22 17:30 TSH 8.340 uIu/ml (0.300-4.500) H 12/25/22 13:20 Free T4 1.45 ng/dl (0.61-1.60) 12/25/22 13:20 Urine Color Dark Yellow 12/25/22 14:20 Urine Appearance Clear (Clear) 12/25/22 14:20 Urine pH 7.0 (4.5-7.5) 12/25/22 14:20 Ur Specific [place] 1.017 (1.000-1.030) 12/25/22 14:20 Urine Protein Trace (Negative) H 12/25/22 14:20 Urine Glucose (UA) Negative (Negative) 12/25/22 14:20 Urine Ketones Trace (Negative) H 12/25/22 14:20 Urine Blood Negative (Negative) 12/25/22 14:20 Urine Nitrite Negative (Negative) 12/25/22 14:20 Urine Bilirubin Negative (Negative) 12/25/22 14:20 Urine Urobilinogen Negative (Negative) 12/25/22 14:20 Ur Leukocyte Esterase 1+ (Negative) H 12/25/22 14:20 Urine WBC (Auto) 10-30 /hpf (0-5) H 12/25/22 14:20 Urine RBC (Auto) 10-30 /hpf (0-4) H 12/25/22 14:20 U Hyaline Cast (Auto) 5-10 /lpf (0-5) H 12/25/22 14:20 U Epithel Cells (Auto) >30 /lpf (0-5) H 12/25/22 14:20 Urine Bacteria (Auto) 1+ (Negative) H 12/25/22 14:20 Ur Renal Epithelial Cell Not Reportable 12/25/22 14:20 Calcium Oxalate Crystal Present (None Prsent) A 12/25/22 14:20 Urine Mucus Present (None Prsent) A 12/25/22 14:20 Impressions Chest X-Ray 12/25/22 12:52 SINGLE VIEW CHEST CLINICAL HISTORY: Edema. FINDINGS: An AP, portable, upright chest radiograph is compared to study dated 09/19/2022 correlation is made with chest CT dated 01/26/2021. The heart is enlarged and noting atherosclerotic calcification of the thoracic aorta. The pulmonary vasculature is noncongested. Chronic interstitial thickening similar to previous. A hiatal hernia is noted. There is bibasilar scarring/atelectasis. No airspace consolidation or large pleural effusion is identified. No pneumothorax is seen. The skeletal structures are osteopenic. The bony thorax is grossly intact. IMPRESSION: 1. Cardiomegaly with no active disease in the chest. There are 2. Hiatal hernia. ACT 112: Negative or not required by law. Electronically signed by: Boyd Stanton M.D. 12/25/2022 2:03 PM Abdomen/Pelvis CT 12/25/22 14:[address] WITH IV CONTRAST CT DOSE: 899.54 mGy.cm HISTORY: Myelofibrosis, abd pain BLE edema TECHNIQUE: Multiaxial CT images of the abdomen and pelvis were performed following the use of intravenous contrast. A dose lowering technique was utilized adhering to the principles of ALARA. COMPARISON STUDY: Abdomen and pelvis CT 09/25/2022. FINDINGS: The lung bases will be reported on the same day chest CT. No pneumoperitoneum. No pneumatosis. No acute fractures. There is a moderate hiatus hernia again noted. The main portal vein and splenic vein are dilated but patent. This remains unchanged. No hepatic masses identified. Prior cholecystectomy. The adrenal glands and pancreas unremarkable. Marked splenomegaly again noted with the spleen measuring 19 cm in length. Heterogeneous enhancement of the splenic dome remains unchanged. Bilateral nephrolithiasis. No ureteral stones. No hydronephrosis. Stable bilateral renal hypodense lesions. These favor cysts. Calcified plaque within the normal caliber abdominal aorta. No retroperitoneal lymphadenopathy. Trace perihepatic and perisplenic ascites, unchanged. There is trace pelvic ascites also noted. The bladder is unremarkable. Prior hysterectomy. Colonic diverticulosis. No evidence for acute diverticulitis. Prior appendectomy. Mild circumferential thickening throughout the majority colon and rectum consistent with a nonspecific proctocolitis. This favors an infectious or inflammatory process. No dilated loops of bowel to suggest an obstruction. Moderate body wall edema is noted. IMPRESSION: 1. Mild circumferential thickening throughout the colon and rectum consistent with a nonspecific proctocolitis. This favors an infectious or inflammatory process. 2. Marked splenomegaly consistent with patient's known history of myelofibrosis. This remains unchanged. 3. Bilateral nephrolithiasis. No hydronephrosis. 4. Colonic diverticulosis. 5. Moderate hiatus hernia, unchanged. 6. Additional findings as described above. ACT 112: Negative or not required by law. Electronically signed by: Te Ham M.D. 12/25/2022 3:29 PM Chest CTA 12/25/22 14:19 CHEST CTA for PULMONARY ARTERIES CT DOSE: HISTORY: Myelofibrosis, sob, near syncope, r/o PE TECHNIQUE: Multiaxial CT images of the chest were performed following the intravenous administration of contrast to evaluate the pulmonary arteries. 3D/Maximal intensity projection images were also obtained. Sagittal and coronal reformations were also reviewed. A dose lowering technique was utilized adhering to the principles of ALARA. COMPARISON STUDY: Chest CT 01/26/2021. FINDINGS: Normal caliber thoracic aorta with no evidence for a dissection. The heart is normal in size. No pleural or pericardial effusions. Kyphotic deformity again noted within the thoracic spine. Abdominal structures will be reported on the same day abdomen and pelvis CT. There is a moderate hiatus hernia again noted. Otherwise, normal caliber esophagus. No mediastinal or hilar lymphadenopathy. No filling defects within the pulmonary arteries to suggest a pulmonary embolus. No acute fractures identified. The central airways are patent. No pneumothorax. Mild biapical pleural-parenchymal scarring. Stable 3 mm nodule in the left lung apex. Mild mosaic attenuation within the lungs. This suggests mild air trapping which could be due to small airways disease. No evidence for pulmonary edema. A few bibasilar linear densities favor scarring or subsegmental atelectasis. No focal lung consolidations to suggest pneumonia. Stable 5 mm groundglass nodule within the right lower lobe in image 127. IMPRESSION: 1. No evidence for a pulmonary embolus. 2. Mild air trapping seen within the lungs. This could be due to small airways disease. 3. Moderate hiatus hernia again noted. 4. Abdominal structures will be reported on the same day abdomen and pelvis CT. ACT 112: Negative or not required by law. Electronically signed by: Te Ham M.D. 12/25/2022 3:23 PM Venous Doppler Study 12/25/22 17:04 BILATERAL LOWER EXTREMITY VENOUS DOPPLER HISTORY: Bilateral lower extremity edema. COMPARISON STUDY: Right leg venous Doppler 09/19/2022. FINDINGS: Small amount of peripheral echogenic material at the bilateral common femoral/greater saphenous vein junction suggestive of nonocclusive chronic thrombus. Otherwise, the bilateral lower extremity deep venous structures are patent with no evidence for an acute DVT. IMPRESSION: 1. No acute DVT within the right or left lower extremity. 2. Small amount of chronic nonocclusive thrombus within the bilateral common femoral/greater saphenous vein junctions. ACT 112: Negative or not required by law. Electronically signed by: Te Ham M.D. 12/25/2022 6:50 PM
[2022-12-26] MEDS ORDERED: cefTRIAXone SODIUM 2,000 MG in DEXTROSE 5% 50 ML IV SCH (18:00)
--- NOTE | 2022-12-26 22:55 | Electrocardiogram Report ---
Test Reason : Blood Pressure : / mmHG Vent. Rate : 086 BPM Atrial Rate : 092 BPM P-R Int : 164 ms QRS Dur : 088 ms QT Int : 366 ms P-R-T Axes : 021 -23 052 degrees QTc Int : 437 ms Sinus rhythm with Consecutive Premature atrial complexes Moderate voltage criteria for LVH, may be normal variant Possible Anterior infarct , age undetermined Abnormal ECG When compared with ECG of 23-JUN-2021 05:25, Premature atrial complexes are now Present Confirmed by Jethro Suarez ([id number]) on 12/26/2022 10:55:01 PM Referred By: REFERRED SELF Confirmed By:Jethro Suarez
[2022-12-27] MEDS: PANTOprazole 40 MG TAB PO SCH (05:55)
[2022-12-27] MEDS: LEVOTHYROXINE SODIUM 100 MCG TABLET PO SCH (05:56)
[2022-12-27] MEDS: DORZOLAMIDE/TIMOLOL 22.3/6.8MG/ML 10 ML BTL OP SCH ×2 (08:38→21:25)
[2022-12-27] MEDS: CYANOCOBALAMIN (B-12) 100 MCG TABLET PO SCH (08:38)
[2022-12-27] MEDS: linaCLOtide 72 MCG CAPSULE PO SCH (08:38)
[2022-12-27] MEDS: predniSONE 10 MG TABLET PO SCH (08:38)
[2022-12-27] MEDS: MYCOPHENOLATE MOFETIL 250 MG CAP PO SCH (08:38)
[2022-12-27] MEDS: POLYETHYLENE (MIRALAX) 17 GM PACK PO SCH (08:39)
[2022-12-27 09:26] LABS: Anisocytosis Present; Basophils # (auto) 0.26 K/uL (0.00-0.20); Basophils % (auto) 1.5 %; Eosinophils # (auto) 0.61 K/uL (0.00-0.50); Eosinophils % (auto) 3.4 %; Hematocrit (blood only) 27.4 % (37.0-47.0); Immature Granulocytes # (auto) 1.77 K/uL (0.01-0.20); Immature Granulocytes % (auto) 9.9 %; Lymphocytes # (auto) 1.09 K/uL (1.20-3.40); Lymphocytes % (auto) 6.1 %; Mean Corpuscular Hemoglobin 37.8 pg (25.0-34.0); Mean Corpuscular Hgb Conc 32.8 g/dL (32.0-36.0); Mean Corpuscular Volume 115.1 fL (80.0-100.0); Mean Platelet Volume 11.1 fL (9.4-12.4); Monocytes # (auto) 1.79 K/uL (0.11-0.59); Monocytes % (auto) 10.1 %; Neutrophils # (auto) 12.28 K/uL (1.40-6.50); Nucleated RBC # (auto) 0.31 K/uL (0.00-0.12); Nucleated RBC % (auto) 1.7 %; Platelet Count 91 K/uL (130-400); Polychromasia 2+; RDW Coefficient of Variation 27.4 % (11.5-14.5); RDW Standard Deviation 114.3 fL (36.4-46.3); Red Blood Count 2.38 M/uL (4.20-5.40); Tear Drop Cells 1+
[2022-12-27 10:00] LABS: BUN Creatinine Ratio 21.6 (10-20); Calcium 9.2 mg/dl (8.6-10.3); Creatinine Clr Calc Pharmacy 40.4 ml/min; Est GFR (African American) 84.4 ml/min; Est GFR (Non-African American) 72.8 ml/min
[2022-12-27] MEDS ORDERED: CALCIUM CARBONATE 500 MG CHEWABLE TAB PO PRN (10:39)
--- NOTE | 2022-12-27 11:21 | Hospitalist Progress Note ---
Date of Service December 27, 2022 Assessment & Plan (1) Near syncope: (2) Lymphedema: Plan: Pt w/ near syncope when trying to have a BM. Also w/ significant LLE edema which is new for her (chronic R LL edema) likely vasovagal episode or orthostatic hypotension ECG reviewed; sinus rhythm with PACs. No significant change compared to previous EKG. Urinalysis suggestive of infection; urine culture shows more than 3 types of organism; all high counts. Blood culture no growth till date. Leukocytosis present; given history of myeloproliferative disorder. Continue on ceftriaxone for now. We will follow-up on blood culture. If blood culture is negative for at least 48 hours; will treat for uncomplicated UTI with antibiotic for 3 to 5 days. Given new L LE edema Doppler obtained IMPRESSION: 1. No acute DVT within the right or left lower extremity. 2. Small amount of chronic nonocclusive thrombus within the bilateral common femoral/greater saphenous vein junctions. Admitting hospitalist discussed findings of Doppler US w/ Dr. Valiente, Recommends Lovenox 40 daily as DVT ppx Chronic medical conditions: Chronic leukocytosis, myeloproliferative disorder -myelofibrosis, chronic steroid use --WBC elevation seems within her baseline.Follows w/ Dr. Zhou (heme/onc in [place]) Constipation - con. 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 DNR/DNI Time spent evaluating patient, direct bedside care, chart review, placing orders, interpretation of diagnostic studies, discussion with consultants, patient, and family members, as well as other required patient management activities is 60 minutes. Please note the above document was generated using voice recognition software. It may contain grammatical, syntax or spelling errors. Any formal questions or concerns about the content, text or information contained within the body of this dictation should be directly addressed to the provider for clarification Admission and Anticipated Discharge Date Admission Date: December 25, 2022 Subjective Patient seen and examined at bedside. She reports feeling cold. She denies any fever, chills, chest pain or shortness of breath. Review of Systems Review of Systems: All systems reviewed & are unremarkable except as noted in Subjective Physical Exam Physical Exam: Constitutional: Alert oriented x3; not in any distress. Respiratory: Bilateral vesicular breath sound. Cardiovascular: RRR, no murmur, no edema Vessels: no JVD or carotid bruit Chest: normal inspection of chest Abdomen: normal bowel sounds, soft, nontender, no hepatosplenomegaly Musculoskeletal: no cyanosis or clubbing, extremities motor strength 5/5. Left leg asymmetrically swollen compared to right. Reports history of lymphedema. Skin: no rashes, warm and dry normal turgor Neurologic: PERRL, EOMI, accommodation nl, no face palsy, no dysarthria CN's II- XI intact bilaterally and moves all extremities Psychiatric: A+Ox3, euthymic affect Results & Data Results & Data Vital Signs (Past 12 Hours) Vital Signs Temp Pulse Pulse Resp BP Pulse Ox O2 Del Method 12/27/22 07:24 36.9 C 82 18 144/65 H 91 Room Air 12/27/22 07:01 80 12/27/22 04:00 36.7 C 75 20 130/74 97 Room Air 12/26/22 23:55 37.0 C 80 18 150/69 H 97 Room Air Laboratory Results Laboratory Results WBC 17.80 K/ul (4.8-10.8) H 12/27/22 08:21 RBC 2.38 M/uL (4.20-5.40) L 12/27/22 08:21 Hgb 9.0 g/dl (12.0-16.0) L 12/27/22 08:21 Hct 27.4 % (37.0-47.0) L 12/27/22 08:21 MCV 115.1 fL (80.0-100.0) H 12/27/22 08:21 MCH 37.8 pg (25.0-34.0) H 12/27/22 08:21 MCHC 32.8 g/dL (32.0-36.0) 12/27/22 08:21 RDW Std Deviation 114.3 fL (36.4-46.3) H 12/27/22 08:21 RDW Coeff of Yee 27.4 % (11.5-14.5) H 12/27/22 08:21 Plt Count 91 K/uL (130-400) L 12/27/22 08:21 MPV 11.1 fL (9.4-12.4) 12/27/22 08:21 Immature Gran % (Auto) 9.9 % 12/27/22 08:21 Neut % (Auto) 69.0 % 12/27/22 08:21 Lymph % (Auto) 6.1 % 12/27/22 08:21 [place] % (Auto) 10.1 % 12/27/22 08:21 Eos % (Auto) 3.4 % 12/27/22 08:21 Baso % (Auto) 1.5 % 12/27/22 08:21 Neut # (Auto) 12.28 K/uL (1.40-6.50) H 12/27/22 08:21 Lymph # (Auto) 1.09 K/uL (1.20-3.40) L 12/27/22 08:21 [place] # (Auto) 1.79 K/uL (0.11-0.59) H 12/27/22 08:21 Eos # (Auto) 0.61 K/uL (0.00-0.50) H 12/27/22 08:21 Baso # (Auto) 0.26 K/uL (0.00-0.20) H 12/27/22 08:21 Immature Gran # (Auto) 1.77 K/uL (0.01-0.20) H 12/27/22 08:21 Absolute Nucleated RBC 0.31 K/uL (0.00-0.12) H 12/27/22 08:21 Nucleated RBC % (auto) 1.7 % 12/27/22 08:21 Neutrophils % (Manual) 73 % 12/26/22 04:34 Lymphocytes % (Manual) 7 % 12/26/22 04:34 Monocytes % (Manual) 7 % 12/26/22 04:34 Eosinophils % (Manual) 2 % 12/26/22 04:34 Basophils % (Manual) 4 % 12/26/22 04:34 Metamyelocytes % (Man) 4 % 12/26/22 04:34 Myelocytes % (Man) 2 % 12/26/22 04:34 Promyelocytes % (Man) 3 % 12/25/22 13:20 Blast Cells % (Manual) 1 % 12/26/22 04:34 Neutrophils # (Manual) 12.50 K/uL (1.40-6.50) H 12/26/22 04:34 Total Absolute Neuts 12.50 K/uL (1.4-6.5) H 12/26/22 04:34 Lymphocytes # (Manual) 1.20 K/uL (1.2-3.4) 12/26/22 04:34 Total Abs Lymphocytes 1.20 K/uL (1.2-3.4) 12/26/22 04:34 Monocytes # (Manual) 1.20 K/uL (0.11-0.59) H 12/26/22 04:34 Eosinophils # (Manual) 0.34 K/uL (0-0.50) 12/26/22 04:34 Basophils # (Manual) 0.68 K/uL (0-0.2) H 12/26/22 04:34 Metamyelocytes # (Man) 0.68 K/uL (0-0) H 12/26/22 04:34 Myelocytes # (Manual) 0.34 K/uL (0-0) H 12/26/22 04:34 Promyelocytes # (Man) 0.53 K/uL (0-0) H 12/25/22 13:20 Blast Cells # (Man) 0.17 K/uL (0-0) H 12/26/22 04:34 Toxic Granulation 1+ 12/25/22 13:20 Platelet Estimate Decreased (Normal) L 12/25/22 13:20 Polychromasia 2+ 12/27/22 08:21 Anisocytosis Present 12/27/22 08:21 Macrocytosis Present 12/25/22 13:20 Tear Drop Cells 1+ 12/27/22 08:21 Schistocytes 1+ 12/25/22 13:20 PT 13.2 Seconds (9.0-12.0) H 12/25/22 13:08 INR 1.2 (0.9-1.1) H 12/25/22 13:08 Sodium 132 mmol/L (136-145) L 12/27/22 08:21 Potassium 4.0 mmol/L (3.5-5.1) 12/27/22 08:21 Chloride 100 mmol/L (98-107) 12/27/22 08:21 Carbon Dioxide 30 mmol/L (21-32) 12/27/22 08:21 Anion Gap 2 (3-11) L 12/27/22 08:21 BUN 16 mg/dl (6-23) 12/27/22 08:21 Creatinine 0.74 mg/dl (0.6-1.2) 12/27/22 08:21 Est Cr Clr Drug Dosing 40.4 ml/min 12/27/22 08:21 Est GFR ( Amer) 84.4 ml/min 12/27/22 08:21 Est GFR (Non-Af Amer) 72.8 ml/min 12/27/22 08:21 BUN/Creatinine Ratio 21.6 (10-20) H 12/27/22 08:21 Glucose 83 mg/dl (70-99(Fasting)) 12/27/22 08:21 Calcium 9.2 mg/dl (8.6-10.3) 12/27/22 08:21 Phosphorus 3.1 mg/dl (2.5-4.9) 12/26/22 04:34 Magnesium 1.9 mg/dl (1.7-2.4) 12/26/22 04:34 Total Bilirubin 0.8 mg/dl (0.2-1.0) 12/25/22 13:08 AST 9 U/L (13-39) L 12/25/22 13:08 ALT 7 U/L (7-52) 12/25/22 13:08 Alkaline Phosphatase 57 U/L (34-104) 12/25/22 13:08 Troponin I High Sens 6.4 pg/ml (0-14) 12/25/22 13:08 B-Natriuretic Peptide 144 pg/ml (0-100) H 12/25/22 13:20 Total Protein 4.2 gm/dl (6.0-8.3) L 12/25/22 13:08 Albumin 2.8 gm/dl (3.4-5.0) L 12/25/22 13:08 Globulin 1.4 gm/dl (2.5-4.0) L 12/25/22 13:08 Albumin/Globulin Ratio 2.0 (0.9-2) 12/25/22 13:08 Lipase 6 U/L (11-82) L 12/25/22 13:08 Procalcitonin 0.22 ng/ml (0-0.5) 12/25/22 17:30 TSH 8.340 uIu/ml (0.300-4.500) H 12/25/22 13:20 Free T4 1.45 ng/dl (0.61-1.60) 12/25/22 13:20 Urine Color Dark Yellow 12/25/22 14:20 Urine Appearance Clear (Clear) 12/25/22 14:20 Urine pH 7.0 (4.5-7.5) 12/25/22 14:20 Ur Specific [place] 1.017 (1.000-1.030) 12/25/22 14:20 Urine Protein Trace (Negative) H 12/25/22 14:20 Urine Glucose (UA) Negative (Negative) 12/25/22 14:20 Urine Ketones Trace (Negative) H 12/25/22 14:20 Urine Blood Negative (Negative) 12/25/22 14:20 Urine Nitrite Negative (Negative) 12/25/22 14:20 Urine Bilirubin Negative (Negative) 12/25/22 14:20 Urine Urobilinogen Negative (Negative) 12/25/22 14:20 Ur Leukocyte Esterase 1+ (Negative) H 12/25/22 14:20 Urine WBC (Auto) 10-30 /hpf (0-5) H 12/25/22 14:20 Urine RBC (Auto) 10-30 /hpf (0-4) H 12/25/22 14:20 U Hyaline Cast (Auto) 5-10 /lpf (0-5) H 12/25/22 14:20 U Epithel Cells (Auto) >30 /lpf (0-5) H 12/25/22 14:20 Urine Bacteria (Auto) 1+ (Negative) H 12/25/22 14:20 Ur Renal Epithelial Cell Not Reportable 12/25/22 14:20 Calcium Oxalate Crystal Present (None Prsent) A 12/25/22 14:20 Urine Mucus Present (None Prsent) A 12/25/22 14:20 Impressions Chest X-Ray 12/25/22 12:52 SINGLE VIEW CHEST CLINICAL HISTORY: Edema. FINDINGS: An AP, portable, upright chest radiograph is compared to study dated 09/19/2022 correlation is made with chest CT dated 01/26/2021. The heart is enlarged and noting atherosclerotic calcification of the thoracic aorta. The pulmonary vasculature is noncongested. Chronic interstitial thickening similar to previous. A hiatal hernia is noted. There is bibasilar scarring/atelectasis. No airspace consolidation or large pleural effusion is identified. No pneumothorax is seen. The skeletal structures are osteopenic. The bony thorax is grossly intact. IMPRESSION: 1. Cardiomegaly with no active disease in the chest. There are 2. Hiatal hernia. ACT 112: Negative or not required by law. Electronically signed by: Boyd Stanton M.D. 12/25/2022 2:03 PM Abdomen/Pelvis CT 12/25/22 14:[address] WITH IV CONTRAST CT DOSE: 899.54 mGy.cm HISTORY: Myelofibrosis, abd pain BLE edema TECHNIQUE: Multiaxial CT images of the abdomen and pelvis were performed following the use of intravenous contrast. A dose lowering technique was utilized adhering to the principles of ALARA. COMPARISON STUDY: Abdomen and pelvis CT 09/25/2022. FINDINGS: The lung bases will be reported on the same day chest CT. No pneumoperitoneum. No pneumatosis. No acute fractures. There is a moderate hiatus hernia again noted. The main portal vein and splenic vein are dilated but patent. This remains unchanged. No hepatic masses identified. Prior cholecystectomy. The adrenal glands and pancreas unremarkable. Marked splenomegaly again noted with the spleen measuring 19 cm in length. Heterogeneous enhancement of the splenic dome remains unchanged. Bilateral nephrolithiasis. No ureteral stones. No hydronephrosis. Stable bilateral renal hypodense lesions. These favor cysts. Calcified plaque within the normal caliber abdominal aorta. No retroperitoneal lymphadenopathy. Trace perihepatic and perisplenic ascites, unchanged. There is trace pelvic ascites also noted. The bladder is unremarkable. Prior hysterectomy. Colonic diverticulosis. No evidence for acute diverticulitis. Prior appendectomy. Mild circumferential thickening throughout the majority colon and rectum consistent with a nonspecific proctocolitis. This favors an infectious or inflammatory process. No dilated loops of bowel to suggest an obstruction. Moderate body wall edema is noted. IMPRESSION: 1. Mild circumferential thickening throughout the colon and rectum consistent with a nonspecific proctocolitis. This favors an infectious or inflammatory process. 2. Marked splenomegaly consistent with patient's known history of myelofibrosis. This remains unchanged. 3. Bilateral nephrolithiasis. No hydronephrosis. 4. Colonic diverticulosis. 5. Moderate hiatus hernia, unchanged. 6. Additional findings as described above. ACT 112: Negative or not required by law. Electronically signed by: Te Ham M.D. 12/25/2022 3:29 PM Chest CTA 12/25/22 14:19 CHEST CTA for PULMONARY ARTERIES CT DOSE: HISTORY: Myelofibrosis, sob, near syncope, r/o PE TECHNIQUE: Multiaxial CT images of the chest were performed following the intravenous administration of contrast to evaluate the pulmonary arteries. 3D/Maximal intensity projection images were also obtained. Sagittal and coronal reformations were also reviewed. A dose lowering technique was utilized adhering to the principles of ALARA. COMPARISON STUDY: Chest CT 01/26/2021. FINDINGS: Normal caliber thoracic aorta with no evidence for a dissection. The heart is normal in size. No pleural or pericardial effusions. Kyphotic deformity again noted within the thoracic spine. Abdominal structures will be reported on the same day abdomen and pelvis CT. There is a moderate hiatus hernia again noted. Otherwise, normal caliber esophagus. No mediastinal or hilar lymphadenopathy. No filling defects within the pulmonary arteries to suggest a pulmonary embolus. No acute fractures identified. The central airways are patent. No pneumothorax. Mild biapical pleural-parenchymal scarring. Stable 3 mm nodule in the left lung apex. Mild mosaic attenuation within the lungs. This suggests mild air trapping which could be due to small airways disease. No evidence for pulmonary edema. A few bibasilar linear densities favor scarring or subsegmental atelectasis. No focal lung consolidations to suggest pneumonia. Stable 5 mm groundglass nodule within the right lower lobe in image 127. IMPRESSION: 1. No evidence for a pulmonary embolus. 2. Mild air trapping seen within the lungs. This could be due to small airways disease. 3. Moderate hiatus hernia again noted. 4. Abdominal structures will be reported on the same day abdomen and pelvis CT. ACT 112: Negative or not required by law. Electronically signed by: Te Ham M.D. 12/25/2022 3:23 PM Venous Doppler Study 12/25/22 17:04 BILATERAL LOWER EXTREMITY VENOUS DOPPLER HISTORY: Bilateral lower extremity edema. COMPARISON STUDY: Right leg venous Doppler 09/19/2022. FINDINGS: Small amount of peripheral echogenic material at the bilateral common femoral/greater saphenous vein junction suggestive of nonocclusive chronic thrombus. Otherwise, the bilateral lower extremity deep venous structures are patent with no evidence for an acute DVT. IMPRESSION: 1. No acute DVT within the right or left lower extremity. 2. Small amount of chronic nonocclusive thrombus within the bilateral common femoral/greater saphenous vein junctions. ACT 112: Negative or not required by law. Electronically signed by: Te Ham M.D. 12/25/2022 6:50 PM
[2022-12-28] MEDS: PANTOprazole 40 MG TAB PO SCH (05:49)
[2022-12-28] MEDS: LEVOTHYROXINE SODIUM 100 MCG TABLET PO SCH (05:49)
[2022-12-28 08:56] LABS: Hematocrit (blood only) 24.5 % (37.0-47.0); Hemoglobin 8.3 g/dl (12.0-16.0); Mean Corpuscular Hemoglobin 38.8 pg (25.0-34.0); Mean Corpuscular Hgb Conc 33.9 g/dL (32.0-36.0); Mean Corpuscular Volume 114.5 fL (80.0-100.0); Mean Platelet Volume 10.1 fL (9.4-12.4); Nucleated RBC # (auto) 0.31 K/uL (0.00-0.12); Nucleated RBC % (auto) 1.7 %; Platelet Count 83 K/uL (130-400); RDW Coefficient of Variation 27.4 % (11.5-14.5); RDW Standard Deviation 113.8 fL (36.4-46.3); Red Blood Count 2.14 M/uL (4.20-5.40); White Blood Count 18.56 K/ul (4.8-10.8)
[2022-12-28] MEDS: MYCOPHENOLATE MOFETIL 250 MG CAP PO SCH (09:05)
[2022-12-28] MEDS: CYANOCOBALAMIN (B-12) 100 MCG TABLET PO SCH (09:05)
[2022-12-28] MEDS: predniSONE 10 MG TABLET PO SCH (09:05)
[2022-12-28] MEDS: POLYETHYLENE (MIRALAX) 17 GM PACK PO SCH ×2 (09:05→09:07)
[2022-12-28] MEDS: linaCLOtide 72 MCG CAPSULE PO SCH (09:05)
[2022-12-28] MEDS: DORZOLAMIDE/TIMOLOL 22.3/6.8MG/ML 10 ML BTL OP SCH (09:05)
[2022-12-28 09:08] LABS: Anisocytosis Present; Basophils # (auto) 0.25 K/uL (0.00-0.20); Basophils % (auto) 1.3 %; Eosinophils # (auto) 0.43 K/uL (0.00-0.50); Eosinophils % (auto) 2.3 %; Immature Granulocytes # (auto) 1.49 K/uL (0.01-0.20); Lymphocytes # (auto) 1.08 K/uL (1.20-3.40); Lymphocytes % (auto) 5.8 %; Macrocytosis Present; Monocytes # (auto) 2.38 K/uL (0.11-0.59); Monocytes % (auto) 12.8 %; Neutrophils # (auto) 12.93 K/uL (1.40-6.50); Neutrophils % (auto) 69.8 %; Ovalocytes 1+; Polychromasia 1+; Schistocytes 1+; Tear Drop Cells 1+
[2022-12-28 09:17] LABS: BUN Creatinine Ratio 31.7 (10-20); Calcium 8.8 mg/dl (8.6-10.3); Creatinine Clr Calc Pharmacy 49.8 ml/min; Potassium 3.9 mmol/L (3.5-5.1)
--- NOTE | 2022-12-28 11:47 | Discharge Summary ---
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 Pt also has had L leg edema for past 2-3 weeks, now unfortunately significantly weeping after skin punctured by a fingernail when applying stockings. Pt's daughter and grand-daughter present at the bedside and also provide hx. They say pt had UTI in October and pt was completely asymptomatic at that time. When reviewing [facility] records, pt was diagnosed w/ Citrobacter UTI. Family and pt confirm that she did finish the treatment. Pt tells me that when she was on the toilet she felt weak, clammy and thought she would pass out. Her neighbor checked on her and contacted her daughter. In the ED pt received small amount of NS IV, blood cultures and urine cultx were obtained. She was started on ppx ceftriaxone. Admission Exam Per Admitting Provider Constitutional: WD/WN, vitals as above (elderly thin F in NAD) Eyes: PERRL, conjunctivae normal, anicteric sclerae ENMT: external ear and nose normal, oropharynx normal Neck: trachea midline, no thyromegaly Respiratory: normal respiratory effort, lungs clear to auscultation Cardiovascular: RRR, no murmur, no edema Gastrointestinal (Abdomen): Inspection/Auscultation: + abdomen distended (but soft, and nontender to palpation) and normal bowel sounds Musculoskeletal: Head/Neck/Chest: normocephalic and head atraumatic moves all extremities, skin tear at LLE mid gary, LE edema R>L Skin: no rashes, warm and dry Neurologic: PERRL, EOMI, accommodation nl, no face palsy, no dysarthria Psychiatric: A+Ox3, euthymic affect Principal Diagnosis Urine tract infection Lower leg extremity cellulitis Discharge Exam Constitutional: Alert oriented x3; not in any distress. Respiratory: Bilateral vesicular breath sound. Cardiovascular: RRR, no murmur, no edema Vessels: no JVD or carotid bruit Chest: normal inspection of chest Abdomen: normal bowel sounds, soft, nontender, no hepatosplenomegaly Musculoskeletal: no cyanosis or clubbing, extremities motor strength 5/5. Left leg asymmetrically swollen compared to right. Reports history of lymphedema. Skin: no rashes, warm and dry normal turgor Neurologic: PERRL, EOMI, accommodation nl, no face palsy, no dysarthria CN's II- XI intact bilaterally and moves all extremities Psychiatric: A+Ox3, euthymic affect Discharge Data Allergies Allergy/AdvReac Type Severity Reaction Status Date / Time naproxen Allergy Mild RASH Verified 12/25/22 16:45 niacin Allergy Mild RASH Verified 12/25/22 16:45 Consultations 12/25/22 16:52 ED Decision to Admit Stat Ordered Studies 12/25/22 14:19 CT abd pelvis IV con only Stat CT angio chest PE protocol Stat 12/25/22 17:04 US venous doppler LE Stat Hospital Course (1) Near syncope: (2) Lymphedema: Patient presented with near syncope when trying to have a BM. Also w/ significant LLE edema which is new for her (chronic R LL edema) likely vasovagal episode or orthostatic hypotension ECG reviewed; sinus rhythm with PACs. No significant change compared to previous EKG. Urinalysis suggestive of infection; urine culture shows more than 3 types of organism; all high counts. Blood culture no growth till date. Leukocytosis present; given history of myeloproliferative disorder. During the hospitalization, patient was treated with ceftriaxone. Blood cultures were negative. Patient was discharged on 5 more days of cefdinir for presumed UTI. She was also prescribed doxycycline for lower extremity cellulitis. Given her new left lower edema; venous duplex was ordered. She was found to have a small amount of chronic nonocclusive thrombus within the bilateral common femoral/greater saphenous vein. Admitting hospitalist discussed with Dr. Valiente; recommended Lovenox 40 mg daily as DVT prophylaxis. Discussion was done with her daughter extensively regarding Lovenox use at home. Patient lives alone at home with occasional help from her daughter. It will be impossible for patient to use Lovenox at home. Also, patient has frequent bruises and low platelet count given her history of myeloproliferative disorder. Shared decision making was done not to start anticoagulation at this. PT OT had recommended patient to go to rehab; however, patient wanted to go home. Daughter is agreeable. Patient was discharged home. Patient has risks of readmission given multiple medical issues and the fact that she lives alone. Discussed with daughter. Please note the above document was generated using voice recognition software. It may contain grammatical, syntax or spelling errors. Any formal questions or concerns about the content, text or information contained within the body of this dictation should be directly addressed to the provider for clarification Total Time Total Time Spent Total Time Spent (In Minutes): 45 Total Time Includes: Examination of the Patient, Discharge Planning, Medication Reconciliation, Communication With Other Providers and Other Discharge Plan Discharge Items Patient Disposition: Home - Self-Care Reason For Visit: LE EDEMA, PRE-SYNCOPE Activity: Resume your previous activity Non-emergency contact: Primary Care Provider Call non-emergency contact if: you have any medication questions and your symptoms worsen Follow-up/Referrals: Ivy Meier MD [Primary Care Provider] - Diet: Regular Addtl Attending Provider Instructions: You were admitted to the concern for left lower extremity edema and near syncope. The likely cause is urinary tract infection. You are prescribed cefdinir to be taken for 5 days. You also have cellulitis on your foot for which you are prescribed doxycycline 100 mg twice a day for 5 days. Pending Studies at Discharge: No Stand-Alone Forms: [facility], Smoking Cessation Medications and DC Order Prescriptions: New cefdinir 300 mg capsule 300 mg PO BID 5 Days Qty: 10 0RF doxycycline hyclate 100 mg capsule 100 mg PO BID 5 Days Qty: 10 0RF Continued doxepin 10 mg Capsule 10 mg PO HS dorzolamide-timolol (PF) 2-0.5 % Drops 1 drp OPB BID omeprazole 20 mg capsule,delayed release(DR/EC) 20 mg PO DAILYBB Rx Instructions: take 1 hour before first meal of the day mycophenolate mofetil 500 mg tablet 500 mg PO DAILY prednisone 10 mg tablet 10 mg PO DAILY cyanocobalamin (vitamin B-12) 100 mcg Tablet 100 mcg PO DAILY ferrous sulfate [FeroSul] 325 mg (65 mg iron) tablet 325 mg PO DAILY acetaminophen [Tylenol Extra Strength] 500 mg Tablet 1,000 mg PO Q6H PRN (Reason: Pain) cholecalciferol (vitamin D3) [Vitamin D3] 25 mcg (1,000 unit) Tablet 25 mcg PO DAILY polyethylene glycol 3350 [Miralax] 17 gram Powder In Packet 17 g PO DAILY dexamethasone 0.5 mg/5 mL elixir 0.5 mg PO BID PRN (Reason: mouth ulcers) levothyroxine 100 mcg tablet 100 mcg PO QAM Linzess 72 mcg capsule 72 mcg PO DAILY Admission Data Admit Date/Time: 12/25/22 18:35 Attending Provider: Regan Nuñez Admit Provider: Carlos Alberto Vergara Primary Care Provider: Ivy Meier Other Providers: Carlos Alberto Vergara
== END 2022-12-28 16:06 | disposition home health service (06) | DRG 690 ==
LOC: ED 12:46 → EDINP 18:35 → SUATTDRO 18:35 → 2N 20:11

== ENCOUNTER 2023-01-28 15:02 | Inpatient (IN) ==
--- NOTE | 2023-01-28 15:31 | Emergency Department Note ---
History of Present Illness General Chief complaint: Swelling/Edema to Extremity Time Seen by Provider: 01/28/23 15:04 History of Present Illness Provider complaint: Bilateral lower extremity edema Onset (ago): week(s) 1 88-year-old female presents emergency department for bilateral lower extremity edema. Patient reports she has chronic swelling of her legs and is presented to the emergency department multiple times for this. Patient states it has been coming increasingly bad over the last week. She reports no chest pain or difficulty breathing. Patient states she dropped a fork on her right foot and then fluid started squirting out of her foot so she became concerned. Patient is not on any blood thinners. Home Medications Medication Instructions Recorded Confirmed Type dorzolamide 2 %-timolol 0.5 % (PF) 1 drp OPB BID 05/24/19 12/25/22 History eye drops doxepin 10 mg capsule 10 mg PO HS 05/24/19 12/25/22 History mycophenolate mofetil 500 mg tablet 500 mg PO DAILY 10/29/20 12/25/22 History omeprazole 20 mg capsule,delayed 20 mg PO DAILYBB 10/29/20 12/25/22 History release prednisone 10 mg tablet 10 mg PO DAILY 01/24/21 12/25/22 History cyanocobalamin (vitamin B-12) 100 100 mcg PO DAILY 06/22/21 12/25/22 History mcg tablet ferrous sulfate 325 mg (65 mg 325 mg PO DAILY 06/22/21 12/25/22 History iron) tablet (FeroSul) acetaminophen 500 mg tablet 1,000 mg PO Q6H PRN Pain 09/19/22 12/25/22 History (Tylenol Extra Strength) cholecalciferol (vitamin D3) 25 25 mcg PO DAILY 09/19/22 12/25/22 History mcg (1,000 unit) tablet (Vitamin D3) dexamethasone 0.5 mg/5 mL oral 0.5 mg PO BID PRN mouth ulcers 12/25/22 12/25/22 History elixir levothyroxine 100 mcg tablet 100 mcg PO QAM 12/25/22 12/25/22 History linaclotide 72 mcg capsule 72 mcg PO DAILY 12/25/22 12/25/22 History (Linzess) polyethylene glycol 3350 17 gram 17 g PO DAILY 12/25/22 12/25/22 History oral powder packet (Miralax) Allergies Allergy/AdvReac Type Severity Reaction Status Date / Time naproxen Allergy Mild RASH Verified 12/25/22 16:45 niacin Allergy Mild RASH Verified 12/25/22 16:45 Past Med/Surg History Medical History Chronic use of steroids Glaucoma Hiatal hernia Hyperlipidemia Diet controlled Hyperparathyroidism 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 Zhou in [place] (oncologist) Thrombocytopenia Surgical History History of bowel resection FOR PERFORATION WITH COLOSTOMY History of cholecystectomy History of colonoscopy History of colostomy reversal History of hysterectomy TOTAL History of lithotripsy Hx of bilateral cataract extraction Hx of cystoscopy Previous back surgery LOWER BACK-NO METAL IMPLANTED S/P debridement OF STOMA SITE S/P thyroidectomy FOR GOITER Family History Father CHF (congestive heart failure) Mother Hypertension Social History Smoking Status: Never smoker Tobacco Type: Cigarettes Second Hand Exposure: No; Do You Dip or Chew Tobacco: No; Hx Alcohol Use: No Hx Substance Use: No Preferred Language: Macedonian Communication Ability: Effective Aircraft Captain Required: No Beliefs That Will Affect Care: None marital status: / Current Living Situation: Personal Care Facility Current Living Situation Comment: lives at [facility] How many Children do You have: 2 Feels Safe at Home: Yes Assistive Devices: Hearing Aid - Bilateral, Walker and Wheelchair Physical Exam Vital Signs Vital Signs - 24 hr 01/28/23 15:09 01/28/23 15:09 01/28/23 15:31 Temperature 36.4 C L Temperature Source Oral Pulse Rate 106 H Pulse Rate [Bilateral] 106 H Respiratory Rate 20 20 Respiratory Depth Normal Blood Pressure 133/50 L Blood Pressure [Right Arm] 133/50 L Blood Pressure Mean 77 Blood Pressure Mean [Right Arm] 77 Pulse Oximetry 100 100 99 Oxygen Delivery Method Room Air Room Air Room Air Sepsis Recent Fever Within 48 Hours No Sepsis New/Unexplained Change in Mental Status N/A Sepsis Action Taken by Nursing No Action Required 01/28/23 15:47 Temperature Temperature Source Pulse Rate 95 H Pulse Rate [Bilateral] Respiratory Rate Respiratory Depth Blood Pressure Blood Pressure [Right Arm] Blood Pressure Mean Blood Pressure Mean [Right Arm] Pulse Oximetry Oxygen Delivery Method Sepsis Recent Fever Within 48 Hours Sepsis New/Unexplained Change in Mental Status Sepsis Action Taken by Nursing Physical Exam HENT: Exam performed. -Head: Normocephalic and atraumatic. NECK: Normal range of motion. Neck supple. No JVD present. No carotid bruit present. No tracheal deviation and normal range of motion present. CV: Normal rate, regular rhythm, normal heart sounds and intact distal pulses. Palpable radial pulses bue. PULM/CHEST: Rales at the bases bilaterally. ABD: The abdomen is soft. There is no tenderness. There is no rebound, no guarding MUSC/SKEL: 3+ pitting edema of the bilateral lower extremities. NEURO: Motor and sensation grossly intact SKIN: Ecchymosis of the bilateral upper and lower extremities. Course Course 1504: The patient was evaluated in room C3. A complete history and physical exam was performed Cardiac monitoring: An order was placed for continuous cardiac monitoring. The monitor shows a rate of 80 with sinus rhythm interpreted by me 1844:Vital signs stable. White blood cell count 24. Patient has a history of chronic leukocytosis. Hemoglobin 9.8. Platelet count 106 sodium 126. Ultrasound negative for DVT. Patient refusing lactic acid or blood cultures. Patient will be admitted to [facility] team spoke with Maria Dolores who stated to admit to Dr. Kee Medical Decision Making Medical Records Attestation: I reviewed the patient's medical records. External medical records reviewed. Patient was admitted from December 25 to December 28, 2022. According to the medical records, the patient has a history of chronic lymphedema of her right leg. Patient also has a history of myelofibrosis. During the last admission the patient developed lymphedema in her left lower extremity also. Patient was treated for a UTI during her admission. The patient had a ultrasound ordered which showed a small amount of chronic nonocclusive thrombus in the bilateral common femoral/greater saphenous veins. These clots were discussed with Dr. Julia cardona who recommended Lovenox 40 mg daily as DVT prophylaxis. The patient lives at home and thus it was thought that the patient was not a suitable candidate for Lovenox at home. It was also thought that this would not be good because she has frequent bruises and low platelet counts. Laboratory Data Attestation: I reviewed the patient's lab results. 01/28/23 15:13 01/28/23 15:13 Lab Results 01/28/23 01/28/23 01/28/23 Range/Units 15:13 15:13 15:13 WBC 24.07 H (4.8-10.8) K/ul RBC 2.52 L (4.20-5.40) M/uL Hgb 9.8 L (12.0-16.0) g/dl Hct 29.1 L (37.0-47.0) % MCV 115.5 H (80.0-100.0) fL MCH 38.9 H (25.0-34.0) pg MCHC 33.7 (32.0-36.0) g/dL Plt Count 106 L (130-400) K/uL MPV 10.9 (9.4-12.4) fL Immature Gran % (Auto) 8.4 % Neut % (Auto) 65.8 % Lymph % (Auto) 6.2 % Mcclain % (Auto) 13.8 % Eos % (Auto) 4.0 % Baso % (Auto) 1.8 % Neut # (Auto) 15.85 H (1.40-6.50) K/uL Lymph # (Auto) 1.50 (1.20-3.40) K/uL Mcclain # (Auto) 3.31 H (0.11-0.59) K/uL Eos # (Auto) 0.97 H (0.00-0.50) K/uL Baso # (Auto) 0.43 H (0.00-0.20) K/uL Immature Gran # (Auto) 2.01 H (0.01-0.20) K/uL Absolute Nucleated RBC 0.18 H (0.00-0.12) K/uL Nucleated RBC % (auto) 0.7 % Platelet Estimate Decreased L (Normal) Polychromasia 1+ Anisocytosis Present Macrocytosis Present Tear Drop Cells 1+ Sodium 126 L (136-145) mmol/L Potassium 4.8 (3.5-5.1) mmol/L Chloride 97 L (98-107) mmol/L Carbon Dioxide 28 (21-32) mmol/L Anion Gap 1 L (3-11) BUN 15 (6-23) mg/dl Creatinine 0.50 L (0.6-1.2) mg/dl Est Cr Clr Drug Dosing 55.3 ml/min Est GFR ( Amer) 100.2 ml/min Est GFR (Non-Af Amer) 86.4 ml/min BUN/Creatinine Ratio 30.0 H (10-20) Glucose 86 (70-99(Fasting)) mg/dl Calcium 8.7 (8.6-10.3) mg/dl Total Bilirubin 0.6 (0.2-1.0) mg/dl AST 13 (13-39) U/L ALT 7 (7-52) U/L Alkaline Phosphatase 68 (34-104) U/L Troponin I High Sens 8.1 (0-14) pg/ml B-Natriuretic Peptide 187 H (0-100) pg/ml Total Protein 5.0 L (6.0-8.3) gm/dl Albumin 2.9 L (3.4-5.0) gm/dl Globulin 2.1 L (2.5-4.0) gm/dl Albumin/Globulin Ratio 1.4 (0.9-2) Lipase 13 (11-82) U/L SARS-CoV-2, RNA, NAAT (NEGATIVE) 01/28/23 Range/Units 15:40 WBC (4.8-10.8) K/ul RBC (4.20-5.40) M/uL Hgb (12.0-16.0) g/dl Hct (37.0-47.0) % MCV (80.0-100.0) fL MCH (25.0-34.0) pg MCHC (32.0-36.0) g/dL Plt Count (130-400) K/uL MPV (9.4-12.4) fL Immature Gran % (Auto) % Neut % (Auto) % Lymph % (Auto) % Mcclain % (Auto) % Eos % (Auto) % Baso % (Auto) % Neut # (Auto) (1.40-6.50) K/uL Lymph # (Auto) (1.20-3.40) K/uL Mcclain # (Auto) (0.11-0.59) K/uL Eos # (Auto) (0.00-0.50) K/uL Baso # (Auto) (0.00-0.20) K/uL Immature Gran # (Auto) (0.01-0.20) K/uL Absolute Nucleated RBC (0.00-0.12) K/uL Nucleated RBC % (auto) % Platelet Estimate (Normal) Polychromasia Anisocytosis Macrocytosis Tear Drop Cells Sodium (136-145) mmol/L Potassium (3.5-5.1) mmol/L Chloride (98-107) mmol/L Carbon Dioxide (21-32) mmol/L Anion Gap (3-11) BUN (6-23) mg/dl Creatinine (0.6-1.2) mg/dl Est Cr Clr Drug Dosing ml/min Est GFR ( Amer) ml/min Est GFR (Non-Af Amer) ml/min BUN/Creatinine Ratio (10-20) Glucose (70-99(Fasting)) mg/dl Calcium (8.6-10.3) mg/dl Total Bilirubin (0.2-1.0) mg/dl AST (13-39) U/L ALT (7-52) U/L Alkaline Phosphatase (34-104) U/L Troponin I High Sens (0-14) pg/ml B-Natriuretic Peptide (0-100) pg/ml Total Protein (6.0-8.3) gm/dl Albumin (3.4-5.0) gm/dl Globulin (2.5-4.0) gm/dl Albumin/Globulin Ratio (0.9-2) Lipase (11-82) U/L SARS-CoV-2, RNA, NAAT NEGATIVE (NEGATIVE) Imaging Data Attestation: I personally reviewed and interpreted this imaging study as follows: My Impression: Chest x-ray: Cardiomegaly with no cephalization Radiologist's Impression: Chest X-Ray 01/28/23 15:09 SINGLE VIEW CHEST CLINICAL HISTORY: Atypical chest pain. FINDINGS: An AP, portable, upright chest radiograph is compared to chest x-ray and chest CT dated 12/25/2022. The heart is mildly enlarged noting atherosclerotic calcification of the thoracic aorta. The pulmonary vasculature is noncongested. Chronic interstitial thickening is similar to previous. The lungs and pleural spaces are clear. No pneumothorax is seen. The skeletal structures are osteopenic. The bony thorax is grossly intact. Cholecystectomy clips are noted in the right upper quadrant. IMPRESSION: No active disease in the chest. ACT 112: Negative or not required by law. Electronically signed by: Boyd Stanton M.D. 01/28/2023 4:00 PM Venous Doppler Study 01/28/23 15:12 ULTRASOUND BILATERAL LOWER EXTREMITY VENOUS CLINICAL HISTORY: Lower extremity pain and swelling. COMPARISON STUDY: Bilateral lower extremity venous ultrasound dated 12/25/2022 TECHNIQUE: Real-time, grayscale, and color Doppler sonography of the deep veins of the right and left lower extremity was performed from the inguinal crease to the calf. Compression and augmentation were utilized. FINDINGS: There is no sonographic evidence of deep venous thrombosis identified in the right or left lower extremity. The common femoral, superficial femoral, and popliteal veins are patent and normally compressible bilaterally. The greater saphenous vein and the profunda femoris vein at the junction with the common femoral vein are clear in both legs. The visualized calf veins are patent bilaterally. Soft tissue edema is noted in both legs. IMPRESSION: There is no sonographic evidence of deep venous thrombosis identified in the right or left lower extremity. ACT 112: Negative or not required by law. Electronically signed by: Boyd Stanton M.D. 01/28/2023 6:11 PM Foot X-Ray 01/28/23 15:13 RIGHT FOOT 2 VIEWS CLINICAL HISTORY: Right foot pain. FINDINGS: AP and crosstable lateral views of the right foot are obtained. No prior studies are available for comparison at the time of dictation. The skeletal structures are osteopenic. No fracture is seen. Mild osteoarthritic change is noted throughout the foot, greatest at the first metatarsophalangeal joint. There are large dorsal and plantar heel spurs. Soft tissue edema is seen throughout the foot, greatest dorsally. IMPRESSION: 1. Soft tissue swelling with no acute bony abnormality identified. 2. Osteopenia with degenerative change and large heel spurs as above. Electronically signed by: Boyd Stanton M.D. 01/28/2023 3:58 PM ECG Data Attestation: I personally reviewed and interpreted this ECG as follows: Indication: + SOB/dyspnea Rate (beats per minute): 81 Rhythm: + normal sinus ECG Intervals/blocks: + Normal QRS, + Normal [place] and + Normal QT-c ECG ST segments: + Normal ST segments ECG Findings: + LVH MDM Narrative 1504: The patient was evaluated in room C3. A complete history and physical exam was performed Cardiac monitoring: An order was placed for continuous cardiac monitoring. The monitor shows a rate of 80 with sinus rhythm interpreted by me 1844:Vital signs stable. White blood cell count 24. Patient has a history of chronic leukocytosis. Hemoglobin 9.8. Platelet count 106 sodium 126. Ultrasound negative for DVT. Patient refusing lactic acid or blood cultures. Patient will be admitted to [facility] team spoke with Maria Dolores who stated to admit to Dr. Kee Impression & Plan Hyponatremia, Lymphedema Discharge Plan Visit Data Chief Complaint: Swelling/Edema to Extremity ED Provider: Tristan Braun Discharge Problem: Hyponatremia, Lymphedema Patient Disposition: Admitted As Inpatient Forms Stand Alone Forms: [facility] Prescriptions Prescriptions: No Action doxepin 10 mg Capsule 10 mg PO HS dorzolamide-timolol (PF) 2-0.5 % Drops 1 drp OPB BID omeprazole 20 mg capsule,delayed release(DR/EC) 20 mg PO DAILYBB Rx Instructions: take 1 hour before first meal of the day mycophenolate mofetil 500 mg tablet 500 mg PO DAILY prednisone 10 mg tablet 10 mg PO DAILY cyanocobalamin (vitamin B-12) 100 mcg Tablet 100 mcg PO DAILY ferrous sulfate [FeroSul] 325 mg (65 mg iron) tablet 325 mg PO DAILY acetaminophen [Tylenol Extra Strength] 500 mg Tablet 1,000 mg PO Q6H PRN (Reason: Pain) cholecalciferol (vitamin D3) [Vitamin D3] 25 mcg (1,000 unit) Tablet 25 mcg PO DAILY polyethylene glycol 3350 [Miralax] 17 gram Powder In Packet 17 g PO DAILY dexamethasone 0.5 mg/5 mL elixir 0.5 mg PO BID PRN (Reason: mouth ulcers) levothyroxine 100 mcg tablet 100 mcg PO QAM Linzess 72 mcg capsule 72 mcg PO DAILY Referrals Referrals: Ivy Meier MD [Primary Care Provider] -
[2023-01-28 15:53] LABS: Albumin Globulin Ratio 1.4 (0.9-2); Albumin Level 2.9 gm/dl (3.4-5.0); Bilirubin,Total 0.6 mg/dl (0.2-1.0); Calcium 8.7 mg/dl (8.6-10.3); Creatinine Clr Calc Pharmacy 55.3 ml/min; Est GFR (African American) 100.2 ml/min; Est GFR (Non-African American) 86.4 ml/min; Globulin 2.1 gm/dl (2.5-4.0); Potassium 4.8 mmol/L (3.5-5.1)
[2023-01-28 15:56] LABS: Hematocrit (blood only) 29.1 % (37.0-47.0); Hemoglobin 9.8 g/dl (12.0-16.0); Mean Corpuscular Hemoglobin 38.9 pg (25.0-34.0); Mean Corpuscular Hgb Conc 33.7 g/dL (32.0-36.0); Mean Corpuscular Volume 115.5 fL (80.0-100.0); Mean Platelet Volume 10.9 fL (9.4-12.4); Nucleated RBC # (auto) 0.18 K/uL (0.00-0.12); Nucleated RBC % (auto) 0.7 %; Platelet Count 106 K/uL (130-400); Red Blood Count 2.52 M/uL (4.20-5.40); White Blood Count 24.07 K/ul (4.8-10.8)
[2023-01-28 15:57] LABS: Anisocytosis Present; Basophils # (auto) 0.43 K/uL (0.00-0.20); Basophils % (auto) 1.8 %; Eosinophils # (auto) 0.97 K/uL (0.00-0.50); Immature Granulocytes # (auto) 2.01 K/uL (0.01-0.20); Immature Granulocytes % (auto) 8.4 %; Lymphocytes % (auto) 6.2 %; Macrocytosis Present; Monocytes # (auto) 3.31 K/uL (0.11-0.59); Monocytes % (auto) 13.8 %; Neutrophils # (auto) 15.85 K/uL (1.40-6.50); Neutrophils % (auto) 65.8 %; Platelet Estimate Decreased (Normal); Polychromasia 1+; Tear Drop Cells 1+
[2023-01-28 15:59] LABS: Troponin I High Sensitivity 8.1 pg/ml (0-14)
--- NOTE | 2023-01-28 16:00 | XRay Report ---
RIGHT FOOT 2 VIEWS CLINICAL HISTORY: Right foot pain. FINDINGS: AP and crosstable lateral views of the right foot are obtained. No prior studies are availa ble for comparison at the time of dictation. The skeletal structures are osteopenic. No fracture is s een. Mild osteoarthritic change is noted throughout the foot, greatest at the first metatarsophalange al joint. There are large dorsal and plantar heel spurs. Soft tissue edema is seen throughout the teresita t, greatest dorsally. IMPRESSION: 1. Soft tissue swelling with no acute bony abnormality identified. 2. Osteopenia with degenerative change and large heel spurs as above. Electronically signed by: Boyd Stanton M.D. 01/28/2023 3:58 PM
--- NOTE | 2023-01-28 16:01 | XRay Report ---
SINGLE VIEW CHEST CLINICAL HISTORY: Atypical chest pain. FINDINGS: An AP, portable, upright chest radiograph is compared to chest x-ray and chest CT dated 12/25. The heart is mildly enlarged noting atherosclerotic calcification of the thoracic aorta. The p ulmonary vasculature is noncongested. Chronic interstitial thickening is similar to previous. The kenan gs and pleural spaces are clear. No pneumothorax is seen. The skeletal structures are osteopenic. The bony thorax is grossly intact. Cholecystectomy clips are noted in the right upper quadrant. IMPRESSION: No active disease in the chest. ACT 112: Negative or not required by law. Electronically signed by: Boyd Stanton M.D. 01/28/2023 4:00 PM
--- NOTE | 2023-01-28 18:12 | Ultrasound Report ---
ULTRASOUND BILATERAL LOWER EXTREMITY VENOUS CLINICAL HISTORY: Lower extremity pain and swelling. COMPARISON STUDY: Bilateral lower extremity venous ultrasound dated 12/25/2022 TECHNIQUE: Real-time, grayscale, and color Doppler sonography of the deep veins of the right and left lower extremity was performed from the inguinal crease to the calf. Compression and augmentation wer e utilized. FINDINGS: There is no sonographic evidence of deep venous thrombosis identified in the right or left lower extremity. The common femoral, superficial femoral, and popliteal veins are patent and normally compressible bilaterally. The greater saphenous vein and the profunda femoris vein at the junction w ith the common femoral vein are clear in both legs. The visualized calf veins are patent bilaterally. Soft tissue edema is noted in both legs. IMPRESSION: There is no sonographic evidence of deep venous thrombosis identified in the right or lef t lower extremity. ACT 112: Negative or not required by law. Electronically signed by: Boyd Stanton M.D. 01/28/2023 6:11 PM
[2023-01-28] MEDS ORDERED: ACETAMINOPHEN 500 MG TAB PO STA (18:45)
[2023-01-28 19:45] LABS: Magnesium 1.9 mg/dl (1.7-2.4)
[2023-01-28 20:01] LABS: Thyroid Stimulating Hormone 4.441 uIu/ml (0.300-4.500)
[2023-01-28] MEDS ORDERED: FUROSEMIDE INJ 20 MG/2 ML VIAL IV ONE (20:16)
[2023-01-28] MEDS ORDERED: ALBUMIN 25% 25 GM/100 ML VIAL IV ONE (20:16)
--- NOTE | 2023-01-28 20:24 | History & Physical Report ---
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 Hematology note from 3 months ago chronic anemia (baseline hemoglobin 8-9), hemoglobin at baseline primary hyperparathyroidism, failed attempts to see Endocrinology outpatient as per records postsurgical hypothyroidism, euthyroid as of today C[facility] history chronic LE DVT, not on anticoagulation secondary to bleeding risk skin cancer as per records Recurrent admissions, functional disability past tobacco abuse Medical telemetry CS, Doxycycline Plain x-ray left leg rule out osteomyelitis May need LLE MRI to definitely rule out osteomyelitis if plain x-ray negative. IV Lasix 1 dose now for possible right-sided heart failure Fluid restriction Update TTE May benefit from pulmonology evaluation for pulmonary hypertension Recheck serum sodium after diuretic dose hyponatremia work-up May benefit from Nephrology consult if without improvement PT OT eval DVT prophylaxis. SCDs Re: Thrombocytopenia DNR Patient's daughter requesting updates from providers. Ms. Suzy Prado, contact #[phone]. Text document was generated using [employer] voice recognition software. It may contain grammatical or spelling errors. Kindly contact undersigned for clarification of any documentation item in question. History of Present Illness Chief Complaint: Worsening bilateral leg swelling, leg redness Primary Care Provider: Ivy Meier MD History obtained from patient, family, and records. 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 Last confinement last month for complicated UTI and LE cellulitis. LLE ulcerated wound after inadvertent scratch by daughter at home. Cultures negative. Patient discharged on cefdinir and doxycycline course. Chronic nonocclusive LE thrombus noted during confinement. Prophylactic Lovenox recommended by [facility] transfusion specialist. Home not done anticoagulation due to patient seen and thrombocytopenia. PT recommended rehab but patient wanted to go home as per documentation. Worsening bilateral leg swelling noted in the last couple of weeks despite compression pumps and manual lymph drainage massage. Patient unable to tolerate home nursing treatments due to pain. No chest pain or unusual shortness of breath. No fever, no chills. Denies abdominal pain. Patient losing weight although appetite good as per daughter. Denies inordinate intake of water. Increased redness on left leg noted the last few days. LLE wound from last month not healing but without drainage as per daughter. Right foot injury after a fork fell on it today as per daughter. Blood-tinged drainage noted. Patient brought to ER for evaluation. 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 Allergies Allergy/AdvReac Type Severity Reaction Status Date / Time naproxen Allergy Mild RASH Verified 12/25/22 16:45 niacin Allergy Mild RASH Verified 12/25/22 16:45 Home Medications Medication Instructions Recorded Confirmed Type dorzolamide 2 %-timolol 0.5 % (PF) 1 drp OPB BID 05/24/19 01/28/23 History eye drops mycophenolate mofetil 500 mg tablet 500 mg PO DAILY 10/29/20 01/28/23 History omeprazole 20 mg capsule,delayed 20 mg PO DAILYBB 10/29/20 01/28/23 History release prednisone 10 mg tablet 5 - 10 mg PO QAM 01/24/21 01/28/23 History cyanocobalamin (vitamin B-12) 100 200 mcg PO DAILY 06/22/21 01/28/23 History mcg tablet ferrous sulfate 325 mg (65 mg 325 mg PO QAM 06/22/21 01/28/23 History iron) tablet (FeroSul) acetaminophen 500 mg tablet 1,000 mg PO Q6H PRN Pain 09/19/22 01/28/23 History (Tylenol Extra Strength) cholecalciferol (vitamin D3) 25 25 mcg PO DAILY 09/19/22 01/28/23 History mcg (1,000 unit) tablet (Vitamin D3) levothyroxine 100 mcg tablet 100 mcg PO DAILYBB 12/25/22 01/28/23 History dexamethasone 0.5 mg/5 mL oral 0.5 mg PO BID PRN mouth ulcers 01/28/23 01/28/23 History elixir linaclotide 145 mcg capsule 145 mcg PO DAILYBB 01/28/23 01/28/23 History (Linzess) Past Med/Surg History Medical History Chronic use of steroids Glaucoma Hiatal hernia Hyperlipidemia Diet controlled Hyperparathyroidism 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 Zhou in [place] (oncologist) Thrombocytopenia Surgical History History of bowel resection FOR PERFORATION WITH COLOSTOMY History of cholecystectomy History of colonoscopy History of colostomy reversal History of hysterectomy TOTAL History of lithotripsy Hx of bilateral cataract extraction Hx of cystoscopy Previous back surgery LOWER BACK-NO METAL IMPLANTED S/P debridement OF STOMA SITE S/P thyroidectomy FOR GOITER Family History Father CHF (congestive heart failure) Mother Hypertension Social History Smoking Status: Never smoker Tobacco Type: Cigarettes Second Hand Exposure: No; Do You Dip or Chew Tobacco: No; Tobacco Cessation Education Requested by Patient: No Hx Alcohol Use: No Hx Substance Use: No Preferred Language: Amharic Communication Ability: Effective Masticator Required: No Beliefs That Will Affect Care: None marital status: / Current Living Situation: Other Current Living Situation Comment: correction apartment How many Children do You have: 2 Other Information That Helps Us Care for You: No Feels Safe at Home: Yes Safety Concerns: Feels Safe At This Time Assistive Devices: Hearing Aid - Bilateral, Walker and Wheelchair Review of Systems Review of Systems: As per HPI, all other systems reviewed and negative Physical Exam Physical Exam: GENERAL: Slightly uncomfortable, wane, underweight, no respiratory distress SKIN: Pallor, warm HEENT: Pale palpebral conjunctivae, no ptosis, dry buccal mucosa NECK : Supple, no tenderness CHEST : CTA, no tenderness HEART : RRR, systolic murmur ABDOMEN: Minimal distention, no tenderness EXTREMITIES : Bilateral LE swelling, LLE erythema, LLE ulcerated wound without drainage, minimal right pedal erythema NEUROLOGIC : Coherent, no facial asymmetry, no other gross focality Results & Data Results & Data Vital Signs (Past 12 Hours) Vital Signs Temp Pulse Pulse Resp BP BP Pulse Ox 01/28/23 15:47 95 H 01/28/23 15:31 99 01/28/23 15:09 36.4 C L 106 H 20 133/50 L 100 01/28/23 15:09 106 H 20 133/50 L 100 O2 Del Method 01/28/23 15:47 01/28/23 15:31 Room Air 01/28/23 15:09 Room Air 01/28/23 15:09 Room Air Laboratory Results Laboratory Results WBC 24.07 K/ul (4.8-10.8) H 01/28/23 15:13 RBC 2.52 M/uL (4.20-5.40) L 01/28/23 15:13 Hgb 9.8 g/dl (12.0-16.0) L 01/28/23 15:13 Hct 29.1 % (37.0-47.0) L 01/28/23 15:13 MCV 115.5 fL (80.0-100.0) H 01/28/23 15:13 MCH 38.9 pg (25.0-34.0) H 01/28/23 15:13 MCHC 33.7 g/dL (32.0-36.0) 01/28/23 15:13 Plt Count 106 K/uL (130-400) L 01/28/23 15:13 MPV 10.9 fL (9.4-12.4) 01/28/23 15:13 Immature Gran % (Auto) 8.4 % 01/28/23 15:13 Neut % (Auto) 65.8 % 01/28/23 15:13 Lymph % (Auto) 6.2 % 01/28/23 15:13 [place] % (Auto) 13.8 % 01/28/23 15:13 Eos % (Auto) 4.0 % 01/28/23 15:13 Baso % (Auto) 1.8 % 01/28/23 15:13 Neut # (Auto) 15.85 K/uL (1.40-6.50) H 01/28/23 15:13 Lymph # (Auto) 1.50 K/uL (1.20-3.40) 01/28/23 15:13 [place] # (Auto) 3.31 K/uL (0.11-0.59) H 01/28/23 15:13 Eos # (Auto) 0.97 K/uL (0.00-0.50) H 01/28/23 15:13 Baso # (Auto) 0.43 K/uL (0.00-0.20) H 01/28/23 15:13 Immature Gran # (Auto) 2.01 K/uL (0.01-0.20) H 01/28/23 15:13 Absolute Nucleated RBC 0.18 K/uL (0.00-0.12) H 01/28/23 15:13 Nucleated RBC % (auto) 0.7 % 01/28/23 15:13 Platelet Estimate Decreased (Normal) L 01/28/23 15:13 Polychromasia 1+ 01/28/23 15:13 Anisocytosis Present 01/28/23 15:13 Macrocytosis Present 01/28/23 15:13 Tear Drop Cells 1+ 01/28/23 15:13 Sodium 126 mmol/L (136-145) L 01/28/23 15:13 Potassium 4.8 mmol/L (3.5-5.1) 01/28/23 15:13 Chloride 97 mmol/L (98-107) L 01/28/23 15:13 Carbon Dioxide 28 mmol/L (21-32) 01/28/23 15:13 Anion Gap 1 (3-11) L 01/28/23 15:13 BUN 15 mg/dl (6-23) 01/28/23 15:13 Creatinine 0.50 mg/dl (0.6-1.2) L 01/28/23 15:13 Est Cr Clr Drug Dosing 55.3 ml/min 01/28/23 15:13 Est GFR ( Amer) 100.2 ml/min 01/28/23 15:13 Est GFR (Non-Af Amer) 86.4 ml/min 01/28/23 15:13 BUN/Creatinine Ratio 30.0 (10-20) H 01/28/23 15:13 Glucose 86 mg/dl (70-99(Fasting)) 01/28/23 15:13 Osmolality 269 mOsm/kg (280-300) L 01/28/23 15:13 Calcium 8.7 mg/dl (8.6-10.3) 01/28/23 15:13 Magnesium 1.9 mg/dl (1.7-2.4) 01/28/23 15:13 Total Bilirubin 0.6 mg/dl (0.2-1.0) 01/28/23 15:13 AST 13 U/L (13-39) 01/28/23 15:13 ALT 7 U/L (7-52) 01/28/23 15:13 Alkaline Phosphatase 68 U/L (34-104) 01/28/23 15:13 Troponin I High Sens 8.1 pg/ml (0-14) 01/28/23 15:13 B-Natriuretic Peptide 187 pg/ml (0-100) H 01/28/23 15:13 Total Protein 5.0 gm/dl (6.0-8.3) L 01/28/23 15:13 Albumin 2.9 gm/dl (3.4-5.0) L 01/28/23 15:13 Globulin 2.1 gm/dl (2.5-4.0) L 01/28/23 15:13 Albumin/Globulin Ratio 1.4 (0.9-2) 01/28/23 15:13 Lipase 13 U/L (11-82) 01/28/23 15:13 TSH 4.441 uIu/ml (0.300-4.500) 01/28/23 15:13 SARS-CoV-2, RNA, NAAT NEGATIVE (NEGATIVE) 01/28/23 15:40 Impressions Chest X-Ray 01/28/23 15:09 SINGLE VIEW CHEST CLINICAL HISTORY: Atypical chest pain. FINDINGS: An AP, portable, upright chest radiograph is compared to chest x-ray and chest CT dated 12/25/2022. The heart is mildly enlarged noting atherosclerotic calcification of the thoracic aorta. The pulmonary vasculature is noncongested. Chronic interstitial thickening is similar to previous. The lungs and pleural spaces are clear. No pneumothorax is seen. The skeletal structures are osteopenic. The bony thorax is grossly intact. Cholecystectomy clips are noted in the right upper quadrant. IMPRESSION: No active disease in the chest. ACT 112: Negative or not required by law. Electronically signed by: Boyd Stanton M.D. 01/28/2023 4:00 PM Venous Doppler Study 01/28/23 15:12 ULTRASOUND BILATERAL LOWER EXTREMITY VENOUS CLINICAL HISTORY: Lower extremity pain and swelling. COMPARISON STUDY: Bilateral lower extremity venous ultrasound dated 12/25/2022 TECHNIQUE: Real-time, grayscale, and color Doppler sonography of the deep veins of the right and left lower extremity was performed from the inguinal crease to the calf. Compression and augmentation were utilized. FINDINGS: There is no sonographic evidence of deep venous thrombosis identified in the right or left lower extremity. The common femoral, superficial femoral, and popliteal veins are patent and normally compressible bilaterally. The greater saphenous vein and the profunda femoris vein at the junction with the common femoral vein are clear in both legs. The visualized calf veins are patent bilaterally. Soft tissue edema is noted in both legs. IMPRESSION: There is no sonographic evidence of deep venous thrombosis identified in the right or left lower extremity. ACT 112: Negative or not required by law. Electronically signed by: Boyd Stanton M.D. 01/28/2023 6:11 PM Foot X-Ray 01/28/23 15:13 RIGHT FOOT 2 VIEWS CLINICAL HISTORY: Right foot pain. FINDINGS: AP and crosstable lateral views of the right foot are obtained. No prior studies are available for comparison at the time of dictation. The skeletal structures are osteopenic. No fracture is seen. Mild osteoarthritic change is noted throughout the foot, greatest at the first metatarsophalangeal joint. There are large dorsal and plantar heel spurs. Soft tissue edema is seen throughout the foot, greatest dorsally. IMPRESSION: 1. Soft tissue swelling with no acute bony abnormality identified. 2. Osteopenia with degenerative change and large heel spurs as above. Electronically signed by: Boyd Stanton M.D. 01/28/2023 3:58 PM Diagnostic Findings EKG as per my interpretation :Rate 80, NSR, LAD, LAFB, LVH no ischemia
[2023-01-28] MEDS ORDERED: DOXYCYCLINE HYCLATE 100 MG in DEXTROSE 5% MINI-B 100 ML IV ONE (20:45)
--- NOTE | 2023-01-28 21:51 | XRay Report ---
LEFT TIBIA AND FIBULA 2 VIEWS CLINICAL HISTORY: Left leg swelling. FINDINGS: AP and lateral views of the left tibia and fibula are correlated with radiographs of left neto cifuentes dated 09/19/2022. The skeletal structures are osteopenic. There is no radiographic evidence of lef t tibial or fibular fracture. The knee and ankle joints are grossly maintained. There are large dorsa l and plantar heel spurs. Soft tissue edema is present throughout the left leg. IMPRESSION: Soft tissue swelling with no radiographic evidence of acute fracture. Electronically signed by: Boyd Stanton M.D. 01/28/2023 9:49 PM
[2023-01-28] MEDS ORDERED: PROMETHAZINE HCL 6.25 MG in SODIUM CHLORIDE 0.9% 50 ML IV PRN (22:10)
[2023-01-28 22:19] LABS: Appearance Urine Clear (Clear); Bacteria Urine Automated Negative (Negative); Bilirubin Urine Negative (Negative); Blood Urine Negative (Negative); Cast Urine Automated 0 /lpf (0-5); Color Urine Yellow; Epithelial Cell Urine Auto 0-5 /lpf (0-5); Glucose Urine UA Negative (Negative); Ketones Urine Negative (Negative); Leukocyte Esterase Urine Trace (Negative); Nitrite Urine Negative (Negative); Protein Urine Negative (Negative); RBC Urine Automated 0-4 /hpf (0-4); Specific Gravity Urine 1.007 (1.000-1.030); Urobilinogen Urine Negative (Negative)
[2023-01-28] MEDS: DORZOLAMIDE/TIMOLOL 22.3/6.8MG/ML 10 ML BTL OP SCH (22:34)
[2023-01-28] MEDS: oxyCODONE HCL IR 5 MG TAB (IMMEDIATE RELEASE) PO PRN (23:29)
[2023-01-29] MEDS: PANTOprazole 40 MG TAB PO SCH (06:00)
[2023-01-29] MEDS: LEVOTHYROXINE SODIUM 100 MCG TABLET PO SCH (06:00)
[2023-01-29] MEDS: LINACLOTIDE 145 MCG CAPSULE PO SCH (06:00)
[2023-01-29 07:06] LABS: Hematocrit (blood only) 26.9 % (37.0-47.0); Mean Corpuscular Hemoglobin 38.6 pg (25.0-34.0); Mean Corpuscular Hgb Conc 33.5 g/dL (32.0-36.0); Mean Corpuscular Volume 115.5 fL (80.0-100.0); Mean Platelet Volume 9.5 fL (9.4-12.4); Nucleated RBC # (auto) 0.13 K/uL (0.00-0.12); Nucleated RBC % (auto) 0.6 %; Platelet Count 93 K/uL (130-400); RDW Coefficient of Variation 26.7 % (11.5-14.5); RDW Standard Deviation 111.1 fL (36.4-46.3); Red Blood Count 2.33 M/uL (4.20-5.40)
[2023-01-29 07:10] LABS: BUN Creatinine Ratio 25.4 (10-20); Calcium 9.1 mg/dl (8.6-10.3); Creatinine Clr Calc Pharmacy 46.8 ml/min; Est GFR (African American) 94.8 ml/min; Est GFR (Non-African American) 81.8 ml/min; Potassium 4.2 mmol/L (3.5-5.1)
[2023-01-29 07:20] LABS: ALC (manual) 0.62 K/uL (1.2-3.4); Anisocytosis Present; Basophils # (manual) 0.62 K/uL (0-0.2); Basophils % (manual) 3 %; Blast # (manual) 0.21 K/uL (0-0); Blast Cells % (manual) 1 %; Eosinophils # (manual) 0.62 K/uL (0-0.50); Eosinophils % (manual) 3 %; Lymphocytes # (manual) 0.62 K/uL (1.2-3.4); Lymphocytes % (manual) 3 %; Macrocytosis Present; Metamyelocytes # (manual) 0.21 K/uL (0-0); Metamyelocytes % (manual) 1 %; Monocytes # (manual) 0.62 K/uL (0.11-0.59); Monocytes % (manual) 3 %; Neutrophils % (manual) 86 %; Ovalocytes 1+; Polychromasia 2+; Tear Drop Cells 2+
[2023-01-29] MEDS: DOXYCYCLINE HYCLATE 100 MG CAP PO SCH ×2 (10:55→19:54)
[2023-01-29] MEDS: MYCOPHENOLATE MOFETIL 250 MG CAP PO SCH (10:55)
[2023-01-29] MEDS: FERROUS SULFATE 325 MG TAB PO SCH (10:55)
[2023-01-29] MEDS: CYANOCOBALAMIN (B-12) 100 MCG TABLET PO SCH (10:55)
[2023-01-29] MEDS: FUROSEMIDE INJ 20 MG/2 ML VIAL IV SCH ×2 (10:55→15:43)
[2023-01-29] MEDS: predniSONE 5 MG TAB PO SCH (10:56)
[2023-01-29] MEDS: DORZOLAMIDE/TIMOLOL 22.3/6.8MG/ML 10 ML BTL OP SCH ×2 (10:56→19:54)
--- NOTE | 2023-01-29 11:13 | Electrocardiogram Report ---
Test Reason : Blood Pressure : / mmHG Vent. Rate : 081 BPM Atrial Rate : 081 BPM P-R Int : 168 ms QRS Dur : 080 ms QT Int : 358 ms P-R-T Axes : 011 -26 027 degrees QTc Int : 415 ms Normal sinus rhythm Minimal voltage criteria for LVH, may be normal variant ( R in aVL ) Cannot rule out Anterior infarct (cited on or before 22-JUN-2021) Abnormal ECG When compared with ECG of 25-DEC-2022 13:00, Premature atrial complexes are no longer Present Confirmed by Kwame Dick ([id number]) on 01/29/2023 11:12:45 AM Referred By: REFERRED SELF Confirmed By:Kwame Dick
--- NOTE | 2023-01-29 14:32 | Hospitalist Progress Note ---
Date of Service January 29, 2023 Assessment & Plan (1) Lymphedema: Plan: per admitting services with addendum: (1) Sepsis: Plan: Secondary to recurrent bilateral LE swelling (LLE more than the RLE) Chronic lymphedema as per records Patient prone to fluid retention given possible right-sided heart failure given pulmonary hypertension and chronic steroid Rx Immunocompromised patient (hx chronic steroid Rx/CellCept Rx for pemphigoid) r/o osteomyelitis 01/29 Echo: EF 60 to 65% Mild concentric LVH R ventricular systolic pressure 30-40mmHg albumin 2.9 X-rays: No osteomyelitis Lasix 20 mg IV twice daily Doxycycline p.o. 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, TTE 2020) hx ovarian cancer status post surgery/chemotherapy chronic thrombocytopenia secondary to myeloproliferative neoplasm, intolerant of prior outpatient treatments, patient declines further care as per outpatient [facility] Hematology note from 3 months ago chronic anemia (baseline hemoglobin 8-9), hemoglobin at baseline primary hyperparathyroidism, failed attempts to see Endocrinology outpatient as per records postsurgical hypothyroidism, euthyroid as of today [facility] history chronic LE DVT, not on anticoagulation secondary to bleeding risk skin cancer as per records Recurrent admissions, functional disability past tobacco abuse PT OT eval DVT prophylaxis. SCDs Re: Thrombocytopenia DNR Admission and Anticipated Discharge Date Admission Date: January 28, 2023 Subjective ff up for worsening leg edema, etc seen resting in bed, comfortable states she feels tired has some leg discomfort no fever/chills no chest pain, dyspnea, palpitations, dizziness no other symptoms Review of Systems Review of Systems: all noted and negative except for above Physical Exam Physical Exam: General- oriented x 3, not in distress, speaks in sentences with no effort or accessory muscle use Eyes- anicteric Neck- no JVD Lungs- clear breath sounds bilaterally, no rales/wheezes Heart- normal rate, regular rhythm; no murmurs Abdomen- normal bowel sounds, nondistended, soft, nontender Extremities- (+) grade 2 lower ext edema Neuro- alert, oriented x 3; no gross focal neurologic deficits Skin- warm & dry Results & Data Results & Data Vital Signs (Past 12 Hours) Vital Signs Temp Pulse Pulse Resp BP BP Pulse Ox 01/29/23 11:41 37.4 C 90 18 128/63 96 01/29/23 08:00 97 H 01/29/23 07:46 36.7 C 93 H 16 136/67 95 01/29/23 03:13 36.9 C 83 16 131/57 L 95 O2 Del Method 01/29/23 11:41 Room Air 01/29/23 08:00 01/29/23 07:46 Room Air 01/29/23 03:13 Room Air all noted and reviewed including below
[2023-01-29] MEDS: oxyCODONE HCL IR 5 MG TAB (IMMEDIATE RELEASE) PO PRN (19:56)
[2023-01-30] MEDS: oxyCODONE HCL IR 5 MG TAB (IMMEDIATE RELEASE) PO PRN (04:59)
[2023-01-30] MEDS: LINACLOTIDE 145 MCG CAPSULE PO SCH (06:08)
[2023-01-30] MEDS: PANTOprazole 40 MG TAB PO SCH (06:08)
[2023-01-30] MEDS: LEVOTHYROXINE SODIUM 100 MCG TABLET PO SCH (06:08)
[2023-01-30] MEDS: DOXYCYCLINE HYCLATE 100 MG CAP PO SCH ×2 (08:46→21:53)
[2023-01-30] MEDS: MYCOPHENOLATE MOFETIL 250 MG CAP PO SCH (08:46)
[2023-01-30] MEDS: predniSONE 5 MG TAB PO SCH (08:46)
[2023-01-30] MEDS: FERROUS SULFATE 325 MG TAB PO SCH (08:47)
[2023-01-30] MEDS: DORZOLAMIDE/TIMOLOL 22.3/6.8MG/ML 10 ML BTL OP SCH ×2 (08:47→21:53)
[2023-01-30] MEDS: FUROSEMIDE INJ 20 MG/2 ML VIAL IV SCH ×2 (08:47→17:43)
[2023-01-30] MEDS: CYANOCOBALAMIN (B-12) 100 MCG TABLET PO SCH (08:47)
[2023-01-30 09:39] LABS: BUN Creatinine Ratio 27.6 (10-20); Calcium 9.2 mg/dl (8.6-10.3); Creatinine Clr Calc Pharmacy 48.2 ml/min; Est GFR (African American) 95.4 ml/min; Est GFR (Non-African American) 82.3 ml/min; Magnesium 1.7 mg/dl (1.7-2.4)
--- NOTE | 2023-01-30 11:54 | Hospitalist Progress Note ---
Date of Service January 30, 2023 Assessment & Plan (1) Lymphedema: Plan: per admitting services with addendum: (1) Possible Sepsis: Plan: Secondary to recurrent bilateral LE swelling Chronic lymphedema as per records Patient prone to fluid retention given possible right-sided heart failure given pulmonary hypertension and chronic steroid Rx Immunocompromised patient (hx chronic steroid Rx/CellCept Rx for pemphigoid) 01/29 Echo: EF 60 to 65% Mild concentric LVH R ventricular systolic pressure 30-40mmHg albumin 2.9 X-rays: No osteomyelitis Diuresing, leg swelling improving Lasix 20 mg IV twice daily Doxycycline p.o. 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, TTE 2020) hx ovarian cancer status post surgery/chemotherapy chronic thrombocytopenia secondary to myeloproliferative neoplasm, intolerant of prior outpatient treatments, patient declines further care as per outpatient [facility] Hematology note from 3 months ago --Platelet level stable chronic anemia (baseline hemoglobin 8-9), hemoglobin at baseline --Hemoglobin stable primary hyperparathyroidism, failed attempts to see Endocrinology outpatient as per records postsurgical hypothyroidism, euthyroid as of today [facility] history chronic LE DVT, not on anticoagulation secondary to bleeding risk skin cancer as per records Recurrent admissions, functional disability past tobacco abuse PT OT eval DVT prophylaxis. SCDs Re: Thrombocytopenia DNR Disposition Lives at home PT and OT evaluation in progress Admission and Anticipated Discharge Date Admission Date: January 28, 2023 Subjective Follow-up for worsening leg edema, history of lymphedema, etc. Seen sitting up in bed, comfortable, having breakfast States she feels improved today compared to yesterday Last week, less discomfort over bilateral legs No fevers or chills No other new symptom Review of Systems Review of Systems: all noted and negative except for above Physical Exam Physical Exam: General- oriented x 3, not in distress, speaks in sentences with no effort or accessory muscle use Eyes- anicteric Neck- no JVD Lungs- clear BS BL No crackles or wheezing Heart- normal rate, regular rhythm; no murmurs Abdomen- normal bowel sounds, nondistended, soft, nontender Extremities-2 lower extremity edema: Improved compared to yesterday, no erythema/warmth/tenderness Hematoma on the left anterior gary improving Neuro- alert, oriented x 3; no gross focal neurologic deficits Skin- warm & dry Results & Data Results & Data Vital Signs (Past 12 Hours) Vital Signs Temp Pulse Pulse Resp BP Pulse Ox O2 Del Method 01/30/23 11:48 37.6 C H 87 16 127/67 91 Room Air 01/30/23 08:02 93 Room Air 01/30/23 08:01 36.2 C L 88 16 136/56 L 86 L Room Air 01/30/23 07:33 93 H 01/30/23 03:50 36.7 C 86 16 143/66 H 94 Room Air 01/30/23 01:40 92 H all noted and reviewed including below
[2023-01-31] MEDS: PANTOprazole 40 MG TAB PO SCH (06:20)
[2023-01-31] MEDS: LEVOTHYROXINE SODIUM 100 MCG TABLET PO SCH (06:20)
[2023-01-31] MEDS: LINACLOTIDE 145 MCG CAPSULE PO SCH (06:20)
[2023-01-31 06:58] LABS: BUN Creatinine Ratio 27.4 (10-20); Calcium 8.7 mg/dl (8.6-10.3); Creatinine Clr Calc Pharmacy 45.4 ml/min; Est GFR (African American) 93.3 ml/min; Est GFR (Non-African American) 80.5 ml/min; Magnesium 1.7 mg/dl (1.7-2.4); Potassium 3.5 mmol/L (3.5-5.1)
[2023-01-31] MEDS: DORZOLAMIDE/TIMOLOL 22.3/6.8MG/ML 10 ML BTL OP SCH ×2 (08:29→20:10)
[2023-01-31] MEDS: predniSONE 5 MG TAB PO SCH (08:29)
[2023-01-31] MEDS: MYCOPHENOLATE MOFETIL 250 MG CAP PO SCH (08:29)
[2023-01-31] MEDS: DOXYCYCLINE HYCLATE 100 MG CAP PO SCH ×2 (08:29→20:10)
[2023-01-31] MEDS: FUROSEMIDE INJ 20 MG/2 ML VIAL IV SCH ×2 (08:29→17:01)
[2023-01-31] MEDS: FERROUS SULFATE 325 MG TAB PO SCH (08:29)
[2023-01-31] MEDS: CYANOCOBALAMIN (B-12) 100 MCG TABLET PO SCH (08:29)
--- NOTE | 2023-01-31 15:11 | Hospitalist Progress Note ---
Date of Service January 31, 2023 Assessment & Plan (1) Lymphedema: Plan: per admitting services with addendum: WORSENING LEG EDEMA HISTORY OF CHRONIC LYMPHEDEMA POSSIBLE COMPONENT OF CELLULITIS, LEFT LOWER LEG Chronic lymphedema as per records Chronic prednisone use likely contributing Immunocompromised patient (hx chronic steroid Rx/CellCept Rx for pemphigoid) Echo: EF 60 to 65% Mild concentric LVH R ventricular systolic pressure 30-40mmHg albumin 2.9 X-rays: No osteomyelitis 01/31 Diuresing well, leg swelling improving daily Lasix 20 mg IV twice daily possible transition in 1-2 days Doxycycline p.o. 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, TTE 2020) hx ovarian cancer status post surgery/chemotherapy chronic thrombocytopenia secondary to myeloproliferative neoplasm, intolerant of prior outpatient treatments, patient declines further care as per outpatient [facility] Hematology note from 3 months ago --Platelet level stable chronic anemia (baseline hemoglobin 8-9), hemoglobin at baseline --Hemoglobin stable primary hyperparathyroidism, failed attempts to see Endocrinology outpatient as per records postsurgical hypothyroidism, euthyroid history chronic LE DVT, not on anticoagulation secondary to bleeding risk skin cancer as per records Recurrent admissions, functional disability past tobacco abuse PT OT eval DVT prophylaxis. SCDs Re: Thrombocytopenia DNR Disposition Lives at home PT and OT evaluation in progress, will likely need SNF plan of care discussed with patient and her daughter all questions answered they are understanding, agreeable, comfortable with the plan of care Admission and Anticipated Discharge Date Admission Date: January 28, 2023 Subjective ff up worsening leg edema, chronic lymphedema, etc seen resting in bed, comfortable states she feels tired today, but also has days at home when she feels tired legs feels better no chest pain, dyspnea, palpitations, dizziness no fever/chills no other symptoms Review of Systems Review of Systems: all noted and negative except for above Physical Exam Physical Exam: General- oriented x 3, not in distress, speaks in sentences with no effort or accessory muscle use Eyes- anicteric Neck- no JVD Lungs- clear breath sounds bilaterally, no rales/wheezes Heart- normal rate, regular rhythm; no murmurs Abdomen- normal bowel sounds, nondistended, soft, nontender Extremities- grade 1 lower extremity edema no erythema/warmth/tenderness Neuro- alert, oriented x 3; no gross focal neurologic deficits Skin- warm & dry Results & Data Results & Data Vital Signs (Past 12 Hours) Vital Signs Temp Pulse Pulse Resp BP BP Pulse Ox 01/31/23 11:18 37.0 C 92 H 18 151/62 H 93 01/31/23 08:30 01/31/23 07:31 36.9 C 82 18 133/92 90 01/31/23 07:30 82 01/31/23 03:13 37.0 C 83 18 155/56 H 94 O2 Del Method 01/31/23 11:18 Room Air 01/31/23 08:30 Room Air 01/31/23 07:31 Room Air 01/31/23 07:30 01/31/23 03:13 Room Air all noted and reviewed including below
[2023-01-31] MEDS ORDERED: EUCERIN CR 120 GM JAR EXT PRN (15:49)
[2023-02-01] MEDS: LINACLOTIDE 145 MCG CAPSULE PO SCH (06:00)
[2023-02-01] MEDS: PANTOprazole 40 MG TAB PO SCH (06:00)
[2023-02-01] MEDS: LEVOTHYROXINE SODIUM 100 MCG TABLET PO SCH (06:00)
[2023-02-01] MEDS: FUROSEMIDE INJ 20 MG/2 ML VIAL IV SCH (07:58)
[2023-02-01] MEDS: MYCOPHENOLATE MOFETIL 250 MG CAP PO SCH (07:58)
[2023-02-01] MEDS: DORZOLAMIDE/TIMOLOL 22.3/6.8MG/ML 10 ML BTL OP SCH ×2 (07:58→19:44)
[2023-02-01] MEDS: CYANOCOBALAMIN (B-12) 100 MCG TABLET PO SCH (07:58)
[2023-02-01] MEDS: DOXYCYCLINE HYCLATE 100 MG CAP PO SCH ×2 (07:58→19:47)
[2023-02-01] MEDS: FERROUS SULFATE 325 MG TAB PO SCH (07:58)
[2023-02-01 08:02] LABS: BUN Creatinine Ratio 30.6 (10-20); Calcium 8.7 mg/dl (8.6-10.3); Creatinine Clr Calc Pharmacy 46.7 ml/min; Est GFR (African American) 93.3 ml/min; Est GFR (Non-African American) 80.5 ml/min; Magnesium 1.6 mg/dl (1.7-2.4); Potassium 3.3 mmol/L (3.5-5.1)
[2023-02-01] MEDS: predniSONE 5 MG TAB PO SCH (09:41)
[2023-02-01] MEDS ORDERED: POTASSIUM CHLORIDE CRTAB 20 MEQ TABCR PO STA ×2 (14:57→19:21)
--- NOTE | 2023-02-01 15:01 | Hospitalist Progress Note ---
Date of Service February 01, 2023 Assessment & Plan (1) Lymphedema: Plan: WORSENING LEG EDEMA HISTORY OF CHRONIC LYMPHEDEMA POSSIBLE COMPONENT OF CELLULITIS, LEFT LOWER LEG Chronic lymphedema as per records Chronic prednisone use likely contributing Immunocompromised patient (hx chronic steroid Rx/CellCept Rx for pemphigoid) Echo: EF 60 to 65% Mild concentric LVH R ventricular systolic pressure 30-40mmHg albumin 2.9 X-rays: No osteomyelitis Diuresing well, leg swelling improving daily Lasix 20 mg IV twice daily possible transition in 1-2 days - will put on hold today Doxycycline p.o. twice daily day #4/7 Monitor electrolytes PT and OT evaluation Acute on chronic hyponatremia secondary to illness/possible right-sided heart failure/fluid retention Sodium 132 Monitor daily Underweight with BMI 19.1 Other chronic conditions: valvular 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, TTE 2020) hx ovarian cancer status post surgery/chemotherapy chronic thrombocytopenia secondary to myeloproliferative neoplasm, intolerant of prior outpatient treatments, patient declines further care as per outpatient [facility] Hematology note from 3 months ago --Platelet level stable chronic anemia (baseline hemoglobin 8-9), hemoglobin at baseline --Hemoglobin stable primary hyperparathyroidism, failed attempts to see Endocrinology outpatient as per records postsurgical hypothyroidism, euthyroid history chronic LE DVT, not on anticoagulation secondary to bleeding risk skin cancer as per records Recurrent admissions, functional disability past tobacco abuse PT OT eval DVT prophylaxis. SCDs Re: Thrombocytopenia DNR Disposition Lives at home PT and OT evaluation in progress, will likely need SNF Admission and Anticipated Discharge Date Admission Date: January 28, 2023 Subjective Pt seen in follow up for worsening leg edema, chronic lymphedema, etc seen resting in bed, comfortable States she felt well at first but then after breakfast became very weak again - says this happens to her a lot legs significantly less swollen no chest pain, dyspnea, palpitations, dizziness no fever/chills no other symptoms Review of Systems Review of Systems: All systems reviewed & are unremarkable except as noted in Subjective Physical Exam Physical Exam: General- elderly F in NAD Eyes- anicteric Neck- no JVD Lungs- clear breath sounds bilaterally, no rales/wheezes Heart- normal rate, regular rhythm; no murmurs Abdomen- normal bowel sounds, nondistended, soft, nontender Extremities- grade 1 lower extremity edema (much improved) no erythema/warmth/tenderness Neuro- alert, oriented x 3; speech fluent, answers appropriately, moves extremities Skin- warm & dry Results & Data Results & Data Vital Signs (Past 12 Hours) Vital Signs Temp Pulse Pulse Resp BP BP Pulse Ox 02/01/23 14:51 37.6 C H 100 H 18 109/54 L 93 02/01/23 11:05 37.3 C 86 18 114/45 L 94 02/01/23 08:00 02/01/23 07:44 37.6 C H 93 H 18 123/52 L 91 02/01/23 07:16 95 H 02/01/23 03:46 37.0 C 83 18 123/58 L 93 O2 Del Method 02/01/23 14:51 Room Air 02/01/23 11:05 Room Air 02/01/23 08:00 Room Air 02/01/23 07:44 Room Air 02/01/23 07:16 02/01/23 03:46 Room Air Laboratory Results 02/01/23 Range/Units 06:46 Sodium 132 L (136-145) mmol/L Potassium 3.3 L (3.5-5.1) mmol/L Chloride 96 L (98-107) mmol/L Carbon Dioxide 32 (21-32) mmol/L Anion Gap 4 (3-11) BUN 19 (6-23) mg/dl Creatinine 0.62 (0.6-1.2) mg/dl Est Cr Clr Drug Dosing 46.7 ml/min Est GFR ( Amer) 93.3 ml/min Est GFR (Non-Af Amer) 80.5 ml/min BUN/Creatinine Ratio 30.6 H (10-20) Glucose 95 (70-99(Fasting)) mg/dl Calcium 8.7 (8.6-10.3) mg/dl Magnesium 1.6 L (1.7-2.4) mg/dl Medications Administered Current Inpatient Medications Acetaminophen (Acetaminophen 325 Mg Tab) 650 mg PO Q4H PRN PRN Reason: Pain or Fever Stop: 02/27/23 22:09 Cyanocobalamin (Cyanocobalamin (B-12) 100 Mcg Tablet) 200 mcg PO DAILY [facility] Stop: 02/28/23 08:59 Last Admin: 02/01/23 07:58 Dose: 200 mcg Dorzolamide/Timolol (Dorzolamide/Timolol 22.3/6.8mg/Ml 10 Ml Btl) 1 drops OP BID [facility] Stop: 02/27/23 22:14 Last Admin: 02/01/23 07:58 Dose: 1 drops Doxycycline Hyclate (Doxycycline Hyclate 100 Mg Cap) 100 mg PO BID [facility] Stop: 02/05/23 08:59 Last Admin: 02/01/23 07:58 Dose: 100 mg Ferrous Sulfate (Ferrous Sulfate 325 Mg Tab) 325 mg PO QAM [facility] Stop: 02/28/23 08:59 Last Admin: 02/01/23 07:58 Dose: 325 mg Furosemide (Furosemide Inj 20 Mg/2 Ml Vial) 20 mg IV BID17 [facility] Stop: 02/28/23 10:14 Last Admin: 02/01/23 07:58 Dose: 20 mg Promethazine HCl 6.25 mg/ (Sodium Chloride) 50.25 mls @ 201 mls/hr IV Q6H PRN PRN Reason: Nausea And Vomiting Stop: 02/27/23 22:09 Last Infusion: 01/29/23 17:38 Dose: Infused Levothyroxine Sodium (Levothyroxine Sodium 100 Mcg Tablet) 100 mcg PO DAILYBB [facility] Stop: 02/28/23 06:29 Last Admin: 02/01/23 06:00 Dose: 100 mcg Linaclotide (Linaclotide 145 Mcg Capsule) 145 mcg PO DAILYBB [facility] Stop: 02/28/23 06:29 Last Admin: 02/01/23 06:00 Dose: 145 mcg Magnesium Oxide (Magnesium Oxide 400 Mg Tab) 400 mg PO BID [facility] Stop: 03/03/23 14:59 Multi-Ingredient Cream (Eucerin Cr 120 Gm Jar) 1 appln EXT BID PRN PRN Reason: Dryness Stop: 03/02/23 15:48 Mycophenolate Mofetil (Mycophenolate Mofetil 250 Mg Cap) 500 mg PO DAILY [facility] Stop: 02/28/23 08:59 Last Admin: 02/01/23 07:58 Dose: 500 mg Oxycodone HCl (Oxycodone Hcl Ir 5 Mg Tab (Immediate Release)) 5 mg PO Q4H PRN PRN Reason: Pain Stop: 02/11/23 22:09 Last Admin: 01/30/23 04:59 Dose: 5 mg Pantoprazole Sodium (Pantoprazole 40 Mg Tab) 40 mg PO DAILYBB [facility] Stop: 02/28/23 06:29 Last Admin: 02/01/23 06:00 Dose: 40 mg Prednisone (Prednisone 5 Mg Tab) 5 mg PO DAILY [facility] Stop: 02/28/23 08:59 Last Admin: 02/01/23 09:41 Dose: 5 mg
[2023-02-01] MEDS: MAGNESIUM OXIDE 400 MG TAB PO SCH ×2 (15:33→19:46)
[2023-02-01] MEDS: ACETAMINOPHEN 325 MG TAB PO PRN (19:47)
[2023-02-01] MEDS: ENOXAPARIN INJ 30 MG/0.3 ML SYR SQ SCH (20:53)
[2023-02-01] MEDS: ADVANCED PROBIOTIC 1250 MG CAPSULE PO SCH (20:53)
[2023-02-01] MEDS: cefTRIAXone SODIUM 1,000 MG in DEXTROSE 5 % MINI-B 50 ML IV SCH (20:59)
[2023-02-02] MEDS: CYANOCOBALAMIN (B-12) 100 MCG TABLET PO SCH (05:27)
[2023-02-02] MEDS: LEVOTHYROXINE SODIUM 100 MCG TABLET PO SCH (05:27)
[2023-02-02] MEDS: PANTOprazole 40 MG TAB PO SCH (05:27)
[2023-02-02] MEDS: LINACLOTIDE 145 MCG CAPSULE PO SCH (06:29)
[2023-02-02 08:14] LABS: Hematocrit (blood only) 25.4 % (37.0-47.0); Hemoglobin 8.3 g/dl (12.0-16.0); Mean Corpuscular Hemoglobin 38.2 pg (25.0-34.0); Mean Corpuscular Hgb Conc 32.7 g/dL (32.0-36.0); Mean Corpuscular Volume 117.1 fL (80.0-100.0); Mean Platelet Volume 10.7 fL (9.4-12.4); Nucleated RBC # (auto) 0.09 K/uL (0.00-0.12); Nucleated RBC % (auto) 0.6 %; Platelet Count 66 K/uL (130-400); RDW Coefficient of Variation 26.5 % (11.5-14.5); RDW Standard Deviation 113.5 fL (36.4-46.3); Red Blood Count 2.17 M/uL (4.20-5.40)
[2023-02-02 08:41] LABS: BUN Creatinine Ratio 31.3 (10-20); Creatinine Clr Calc Pharmacy 45.3 ml/min; Est GFR (African American) 92.3 ml/min; Est GFR (Non-African American) 79.7 ml/min; Magnesium 1.7 mg/dl (1.7-2.4); Phosphorus 2.8 mg/dl (2.5-4.9); Potassium 4.1 mmol/L (3.5-5.1)
[2023-02-02] MEDS: DORZOLAMIDE/TIMOLOL 22.3/6.8MG/ML 10 ML BTL OP SCH ×2 (08:44→20:14)
[2023-02-02] MEDS: DOXYCYCLINE HYCLATE 100 MG CAP PO SCH ×2 (08:45→20:15)
[2023-02-02] MEDS: MYCOPHENOLATE MOFETIL 250 MG CAP PO SCH (08:45)
[2023-02-02] MEDS: MAGNESIUM OXIDE 400 MG TAB PO SCH (08:45)
[2023-02-02] MEDS: ADVANCED PROBIOTIC 1250 MG CAPSULE PO SCH (08:45)
[2023-02-02] MEDS: predniSONE 5 MG TAB PO SCH (08:45)
[2023-02-02] MEDS: ENOXAPARIN INJ 30 MG/0.3 ML SYR SQ SCH (08:46)
[2023-02-02] MEDS ORDERED: MAGNESIUM SULFATE / D5W 1 GM/100 ML BAG IV ONE (09:05)
[2023-02-02] MEDS: FERROUS SULFATE 325 MG TAB PO SCH (10:38)
[2023-02-02] MEDS ORDERED: bisacodyL 10 MG SUPP PR PRN (12:24)
[2023-02-02] MEDS: DOCUSATE SODIUM 100 MG CAP PO SCH ×2 (12:48→20:14)
[2023-02-02] MEDS ORDERED: FUROSEMIDE INJ 20 MG/2 ML VIAL IV ONE (13:26)
--- NOTE | 2023-02-02 13:32 | Hospitalist Progress Note ---
Date of Service February 02, 2023 Assessment & Plan (1) Lymphedema: Plan: WORSENING LEG EDEMA HISTORY OF CHRONIC LYMPHEDEMA POSSIBLE COMPONENT OF CELLULITIS, LEFT LOWER LEG Chronic lymphedema as per records Chronic prednisone use likely contributing Immunocompromised patient (hx chronic steroid Rx/CellCept Rx for pemphigoid) Echo: EF 60 to 65% Mild concentric LVH R ventricular systolic pressure 30-40mmHg albumin 2.9 X-rays: No osteomyelitis Diuresing well, leg swelling improving daily Lasix 20 mg IV twice daily possible transition in 1-2 days Doxycycline p.o. twice daily day #5/7 Monitor electrolytes - hypomagnesemia, hypokalemia - secondary to lasix - replaced and monitor PT and OT evaluation Discussed w/ pt's daughter - continues to feel quite weak, temp 37.7 yesterday, several times - daughter concerned about mild elev. in temp. UA on admission negative, ordered repeat, blood cultx on admission negative - will repeat. Added empiric ceftriaxone to doxy for now. Cont. to closely monitor. Temp for now improved/ lower. Acute on chronic hyponatremia secondary to illness/possible right-sided heart failure/fluid retention Sodium 134 Monitor daily Underweight with BMI 19.1 Other chronic conditions: valvular 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, TTE 2020) hx ovarian cancer status post surgery/chemotherapy chronic thrombocytopenia secondary to myeloproliferative neoplasm, intolerant of prior outpatient treatments, patient declines further care as per outpatient [facility] Hematology note from 3 months ago --Platelet level stable chronic anemia (baseline hemoglobin 8-9), hemoglobin at baseline --Hemoglobin stable primary hyperparathyroidism, failed attempts to see Endocrinology outpatient as per records postsurgical hypothyroidism, euthyroid history chronic LE DVT, not on anticoagulation secondary to bleeding risk skin cancer as per records Recurrent admissions, functional disability past tobacco abuse PT OT eval DVT prophylaxis. SCDs Re: Thrombocytopenia DNR Disposition Lives at home PT and OT evaluation in progress, will likely need SNF Admission and Anticipated Discharge Date Admission Date: January 28, 2023 Subjective Pt seen in follow up for worsening leg edema, chronic lymphedema, etc seen resting in bed, comfortable Continues to feel quite weak, discussed w/ pt's daughter at the bedside. legs significantly less swollen no chest pain, dyspnea, palpitations, dizziness no fever/chills no other symptoms Review of Systems Review of Systems: All systems reviewed & are unremarkable except as noted in Subjective Physical Exam Physical Exam: General- elderly F in NAD Eyes- anicteric Neck- no JVD Lungs- clear breath sounds bilaterally, no rales/wheezes Heart- normal rate, regular rhythm; no murmurs Abdomen- normal bowel sounds, nondistended, soft, nontender Extremities- grade 1 lower extremity edema (much improved) no erythema/warmth/tenderness Neuro- alert, oriented x 3; speech fluent, answers appropriately, moves extremities Skin- warm & dry Results & Data Results & Data Vital Signs (Past 12 Hours) Vital Signs Temp Pulse Pulse Resp BP Pulse Ox O2 Del Method 02/02/23 12:05 37.2 C 83 17 104/63 94 Room Air 02/02/23 08:45 Room Air 02/02/23 08:04 36.9 C 63 18 115/61 95 Room Air 02/02/23 07:37 80 02/02/23 04:29 37 C 78 14 134/59 L 96 Room Air Laboratory Results 02/02/23 02/02/23 Range/Units 07:34 07:34 WBC 15.30 H (4.8-10.8) K/ul RBC 2.17 L (4.20-5.40) M/uL Hgb 8.3 L (12.0-16.0) g/dl Hct 25.4 L (37.0-47.0) % MCV 117.1 H (80.0-100.0) fL MCH 38.2 H (25.0-34.0) pg MCHC 32.7 (32.0-36.0) g/dL RDW Std Deviation 113.5 H (36.4-46.3) fL RDW Coeff of Yee 26.5 H (11.5-14.5) % Plt Count 66 L (130-400) K/uL MPV 10.7 (9.4-12.4) fL Absolute Nucleated RBC 0.09 (0.00-0.12) K/uL Nucleated RBC % (auto) 0.6 % Sodium 134 L (136-145) mmol/L Potassium 4.1 D (3.5-5.1) mmol/L Chloride 100 (98-107) mmol/L Carbon Dioxide 32 (21-32) mmol/L Anion Gap 2 L (3-11) BUN 20 (6-23) mg/dl Creatinine 0.64 (0.6-1.2) mg/dl Est Cr Clr Drug Dosing 45.3 ml/min Est GFR ( Amer) 92.3 ml/min Est GFR (Non-Af Amer) 79.7 ml/min BUN/Creatinine Ratio 31.3 H (10-20) Glucose 96 (70-99(Fasting)) mg/dl Calcium 9.0 (8.6-10.3) mg/dl Phosphorus 2.8 (2.5-4.9) mg/dl Magnesium 1.7 (1.7-2.4) mg/dl Medications Administered Current Inpatient Medications Acetaminophen (Acetaminophen 325 Mg Tab) 650 mg PO Q4H PRN PRN Reason: Pain or Fever Stop: 02/27/23 22:09 Last Admin: 02/01/23 19:47 Dose: 650 mg Bisacodyl (Bisacodyl 10 Mg Supp) 10 mg [place] DAILY PRN PRN Reason: Constipation Stop: 03/04/23 12:23 Cyanocobalamin (Cyanocobalamin (B-12) 100 Mcg Tablet) 200 mcg PO DAILY [facility] Stop: 02/28/23 08:59 Last Admin: 02/02/23 05:27 Dose: 200 mcg Docusate Sodium (Docusate Sodium 100 Mg Cap) 100 mg PO BID [facility] Stop: 03/04/23 12:29 Last Admin: 02/02/23 12:48 Dose: 100 mg Dorzolamide/Timolol (Dorzolamide/Timolol 22.3/6.8mg/Ml 10 Ml Btl) 1 drops OP BID [facility] Stop: 02/27/23 22:14 Last Admin: 02/02/23 08:44 Dose: 1 drops Doxycycline Hyclate (Doxycycline Hyclate 100 Mg Cap) 100 mg PO BID [facility] Stop: 02/05/23 08:59 Last Admin: 02/02/23 08:45 Dose: 100 mg Enoxaparin Sodium (Enoxaparin Inj 30 Mg/0.3 Ml Syr) 30 mg SQ QAM [facility] Stop: 03/03/23 19:29 Last Admin: 02/02/23 08:46 Dose: 30 mg Ferrous Sulfate (Ferrous Sulfate 325 Mg Tab) 325 mg PO QAM [facility] Stop: 02/28/23 08:59 Last Admin: 02/02/23 10:38 Dose: 325 mg Furosemide (Furosemide Inj 20 Mg/2 Ml Vial) 20 mg IV [id number] [facility] Stop: 02/28/23 10:14 Last Admin: 02/01/23 07:58 Dose: 20 mg Furosemide (Furosemide Inj 20 Mg/2 Ml Vial) 20 mg IV ONE ONE Stop: 02/02/23 13:27 Promethazine HCl 6.25 mg/ (Sodium Chloride) 50.25 mls @ 201 mls/hr IV Q6H PRN PRN Reason: Nausea And Vomiting Stop: 02/27/23 22:09 Last Infusion: 01/29/23 17:38 Dose: Infused Ceftriaxone Sodium 1,000 mg/ (Dextrose) 50 mls @ 100 mls/hr IV Q24H [facility]; Protocol Stop: 02/08/23 20:29 Last Infusion: 02/01/23 21:35 Dose: Infused Lactobacillus Acidophilus (Advanced Probiotic 1250 Mg Capsule) 2 cap PO DAILY [facility] Stop: 03/03/23 19:59 Last Admin: 02/02/23 08:45 Dose: 2 cap Levothyroxine Sodium (Levothyroxine Sodium 100 Mcg Tablet) 100 mcg PO DAILYBB [facility] Stop: 02/28/23 06:29 Last Admin: 02/02/23 05:27 Dose: 100 mcg Linaclotide (Linaclotide 145 Mcg Capsule) 145 mcg PO DAILYBB [facility] Stop: 02/28/23 06:29 Last Admin: 02/02/23 06:29 Dose: 145 mcg Magnesium Oxide (Magnesium Oxide 400 Mg Tab) 400 mg PO BID [facility] Stop: 03/03/23 14:59 Last Admin: 02/02/23 08:45 Dose: 400 mg Multi-Ingredient Cream (Eucerin Cr 120 Gm Jar) 1 appln EXT BID PRN PRN Reason: Dryness Stop: 03/02/23 15:48 Mycophenolate Mofetil (Mycophenolate Mofetil 250 Mg Cap) 500 mg PO DAILY [facility] Stop: 02/28/23 08:59 Last Admin: 02/02/23 08:45 Dose: 500 mg Oxycodone HCl (Oxycodone Hcl Ir 5 Mg Tab (Immediate Release)) 5 mg PO Q4H PRN PRN Reason: Pain Stop: 02/11/23 22:09 Last Admin: 01/30/23 04:59 Dose: 5 mg Pantoprazole Sodium (Pantoprazole 40 Mg Tab) 40 mg PO DAILYBB [facility] Stop: 02/28/23 06:29 Last Admin: 02/02/23 05:27 Dose: 40 mg Prednisone (Prednisone 5 Mg Tab) 5 mg PO DAILY [facility] Stop: 02/28/23 08:59 Last Admin: 02/02/23 08:45 Dose: 5 mg
[2023-02-02 18:44] LABS: Appearance Urine Clear (Clear); Bilirubin Urine Negative (Negative); Blood Urine Negative (Negative); Color Urine Yellow; Glucose Urine UA Negative (Negative); Ketones Urine Negative (Negative); Leukocyte Esterase Urine Negative (Negative); Nitrite Urine Negative (Negative); Protein Urine Negative (Negative); Specific Gravity Urine 1.007 (1.000-1.030); Urobilinogen Urine Negative (Negative)
[2023-02-02] MEDS: cefTRIAXone SODIUM 1,000 MG in DEXTROSE 5 % MINI-B 50 ML IV SCH (20:10)
[2023-02-02] MEDS: oxyCODONE HCL IR 5 MG TAB (IMMEDIATE RELEASE) PO PRN (23:43)
[2023-02-03] MEDS: ACETAMINOPHEN 325 MG TAB PO PRN (03:20)
[2023-02-03] MEDS: PANTOprazole 40 MG TAB PO SCH (05:33)
[2023-02-03] MEDS: LEVOTHYROXINE SODIUM 100 MCG TABLET PO SCH (05:33)
[2023-02-03] MEDS: LINACLOTIDE 145 MCG CAPSULE PO SCH (05:33)
--- NOTE | 2023-02-03 08:12 | XRay Report ---
XR chest 1V portable HISTORY: hypoxia COMPARISON: Chest 01/28/2023. FINDINGS: No pneumothorax. The cardiac silhouette is mildly enlarged. There is a small right pleural effusion which is new from the prior study. There is mild central pulmonary vascular congestion witho ut overt edema. This has progressed in the interval. There are low lung volumes. No new focal lung co nsolidations to suggest a pneumonia. IMPRESSION: Cardiomegaly with mild pulmonary vascular congestion and a small right pleural effusion. This has pro gressed in the interval. ACT 112: Negative or not required by law. Electronically signed by: Te Ham M.D. 02/03/2023 8:10 AM
[2023-02-03 08:27] LABS: Calcium 8.9 mg/dl (8.6-10.3); Creatinine Clr Calc Pharmacy 38.6 ml/min; Est GFR (African American) 82.5 ml/min; Est GFR (Non-African American) 71.2 ml/min; Magnesium 1.9 mg/dl (1.7-2.4); Potassium 3.9 mmol/L (3.5-5.1)
[2023-02-03] MEDS: DORZOLAMIDE/TIMOLOL 22.3/6.8MG/ML 10 ML BTL OP SCH ×2 (08:34→19:44)
[2023-02-03] MEDS: CYANOCOBALAMIN (B-12) 100 MCG TABLET PO SCH (08:35)
[2023-02-03] MEDS: predniSONE 5 MG TAB PO SCH (08:35)
[2023-02-03] MEDS: ADVANCED PROBIOTIC 1250 MG CAPSULE PO SCH (08:35)
[2023-02-03] MEDS: MYCOPHENOLATE MOFETIL 250 MG CAP PO SCH (08:35)
[2023-02-03] MEDS: DOXYCYCLINE HYCLATE 100 MG CAP PO SCH ×2 (08:35→19:44)
[2023-02-03] MEDS: DOCUSATE SODIUM 100 MG CAP PO SCH ×2 (08:35→19:44)
[2023-02-03] MEDS: FERROUS SULFATE 325 MG TAB PO SCH (08:35)
[2023-02-03] MEDS ORDERED: FUROSEMIDE INJ 20 MG/2 ML VIAL IV ONE (15:49)
[2023-02-03] MEDS: cefTRIAXone SODIUM 1,000 MG in DEXTROSE 5 % MINI-B 50 ML IV SCH (19:43)
[2023-02-03] MEDS: oxyCODONE HCL IR 5 MG TAB (IMMEDIATE RELEASE) PO PRN (19:45)
[2023-02-04] MEDS: LEVOTHYROXINE SODIUM 100 MCG TABLET PO SCH (05:17)
[2023-02-04] MEDS: LINACLOTIDE 145 MCG CAPSULE PO SCH (05:17)
[2023-02-04] MEDS: PANTOprazole 40 MG TAB PO SCH (05:17)
[2023-02-04 07:36] LABS: Calcium 8.9 mg/dl (8.6-10.3); Creatinine Clr Calc Pharmacy 48.9 ml/min; Est GFR (African American) 94.3 ml/min; Est GFR (Non-African American) 81.4 ml/min; Potassium 3.7 mmol/L (3.5-5.1)
[2023-02-04] MEDS: ADVANCED PROBIOTIC 1250 MG CAPSULE PO SCH (09:20)
[2023-02-04] MEDS: predniSONE 5 MG TAB PO SCH (09:20)
[2023-02-04] MEDS: FERROUS SULFATE 325 MG TAB PO SCH (09:20)
[2023-02-04] MEDS: CYANOCOBALAMIN (B-12) 100 MCG TABLET PO SCH (09:20)
[2023-02-04] MEDS: MYCOPHENOLATE MOFETIL 250 MG CAP PO SCH (09:20)
[2023-02-04] MEDS: DOCUSATE SODIUM 100 MG CAP PO SCH ×2 (09:21→19:55)
[2023-02-04] MEDS: DOXYCYCLINE HYCLATE 100 MG CAP PO SCH ×2 (09:21→19:56)
[2023-02-04] MEDS: DORZOLAMIDE/TIMOLOL 22.3/6.8MG/ML 10 ML BTL OP SCH ×2 (09:21→19:54)
--- NOTE | 2023-02-04 10:04 | Hospitalist Progress Note ---
Date of Service February 03, 2023 Assessment & Plan (1) Lymphedema: Plan: WORSENING LEG EDEMA HISTORY OF CHRONIC LYMPHEDEMA POSSIBLE COMPONENT OF CELLULITIS, LEFT LOWER LEG Chronic lymphedema as per records Chronic prednisone use likely contributing Immunocompromised patient (hx chronic steroid Rx/CellCept Rx for pemphigoid) Echo: EF 60 to 65% Mild concentric LVH R ventricular systolic pressure 30-40mmHg albumin 2.9 X-rays: No osteomyelitis Diuresing well, leg swelling improving daily Lasix 20 mg IV twice daily possible transition in 1-2 days Doxycycline p.o. twice daily day #6/7 Monitor electrolytes - hypomagnesemia, hypokalemia - secondary to lasix - replaced and monitor PT and OT evaluation Discussed w/ pt's daughter - continues to feel quite weak, temp 37.7, several times - daughter concerned about mild elev. in temp. UA on admission negative, ordered repeat, blood cultx on admission negative - repeated. Added empiric ceftriaxone to doxy. Cont. to closely monitor. Temp initially improved - then spiked again once on 02/03 Blood cultx - 01/29 - negative for 5 days Blood cultx - 02/01 - negative so far UA on 01/28 and 02/02 - both negative CXR - with mild pulm. vasc congestion - pt is currently breathing on RA, comfortable, saturating 96% Acute on chronic hyponatremia secondary to illness/possible right-sided heart failure/fluid retention Sodium 134 Monitor daily Underweight with BMI 19.1 Other chronic conditions: valvular 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, TTE 2020) hx ovarian cancer status post surgery/chemotherapy chronic thrombocytopenia secondary to myeloproliferative neoplasm, intolerant of prior outpatient treatments, patient declines further care as per outpatient [facility] Hematology note from 3 months ago --Platelet level stable chronic anemia (baseline hemoglobin 8-9), hemoglobin at baseline --Hemoglobin stable primary hyperparathyroidism, failed attempts to see Endocrinology outpatient as per records postsurgical hypothyroidism, euthyroid history chronic LE DVT, not on anticoagulation secondary to bleeding risk skin cancer as per records Recurrent admissions, functional disability past tobacco abuse PT OT eval DVT prophylaxis. SCDs Re: Thrombocytopenia DNR Disposition Lives at home PT and OT evaluation in progress, will likely need SNF/rehab - pt and family are inclined for [facility] Admission and Anticipated Discharge Date Admission Date: January 28, 2023 Subjective Pt seen in follow up for worsening leg edema, chronic lymphedema, etc seen resting in bed, comfortable, says overall feeling better legs significantly less swollen no chest pain, dyspnea, palpitations, dizziness no fever/chills no other symptoms Review of Systems Review of Systems: All systems reviewed & are unremarkable except as noted in Subjective Physical Exam Physical Exam: General- elderly F in NAD Eyes- anicteric Neck- no JVD Lungs- clear breath sounds bilaterally, no rales/wheezes Heart- normal rate, regular rhythm; no murmurs Abdomen- normal bowel sounds, nondistended, soft, nontender Extremities- grade 1 lower extremity edema (much improved) no erythema/warmth/tenderness Neuro- alert, oriented x 3; speech fluent, answers appropriately, moves extremities Skin- warm & dry Results & Data Results & Data Vital Signs (Past 12 Hours) Vital Signs Temp Pulse Pulse Resp BP BP Pulse Ox 02/03/23 23:34 81 02/03/23 23:22 37 C 82 18 134/60 90 O2 Del Method 02/03/23 23:34 02/03/23 23:22 Room Air
--- NOTE | 2023-02-04 10:05 | Hospitalist Progress Note ---
Date of Service February 04, 2023 Assessment & Plan (1) Lymphedema: Plan: WORSENING LEG EDEMA HISTORY OF CHRONIC LYMPHEDEMA POSSIBLE COMPONENT OF CELLULITIS, LEFT LOWER LEG Chronic lymphedema as per records Chronic prednisone use likely contributing Immunocompromised patient (hx chronic steroid Rx/CellCept Rx for pemphigoid) Echo (01/29/2023): EF 60 to 65% Mild concentric LVH R ventricular systolic pressure 30-40mmHg albumin 2.9 X-rays: No osteomyelitis Diuresing well, leg swelling improving daily Lasix 20 mg IV twice daily, will transition to PO Doxycycline p.o. twice daily day #10/28 Monitor electrolytes - hypomagnesemia, hypokalemia - secondary to lasix - replaced and monitor PT and OT evaluation Discussed w/ pt's daughter - continues to feel quite weak, temp 37.7, several times - daughter concerned about mild elev. in temp. UA on admission negative, ordered repeat, blood cultx on admission negative - repeated. Added empiric ceftriaxone to doxy. Cont. to closely monitor. Temp initially improved - then spiked again once on 02/03 Blood cultx - 01/29 - negative for 5 days Blood cultx - 02/01 - negative for 48 hrs UA on 01/28 and 02/02 - both negative CXR - with mild pulm. vasc congestion - pt is currently breathing on RA, comfortable, saturating 96% Acute on chronic hyponatremia secondary to illness/possible right-sided heart failure/fluid retention Sodium 132 - cont. to monitor Underweight with BMI 19.1 Other chronic conditions: valvular 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, TTE 2020) hx ovarian cancer status post surgery/chemotherapy chronic thrombocytopenia secondary to myeloproliferative neoplasm, intolerant of prior outpatient treatments, patient declines further care as per outpatient [facility] Hematology note from 3 months ago --Platelet level stable chronic anemia (baseline hemoglobin 8-9), hemoglobin at baseline --Hemoglobin stable primary hyperparathyroidism, failed attempts to see Endocrinology outpatient as per records postsurgical hypothyroidism, euthyroid history chronic LE DVT, not on anticoagulation secondary to bleeding risk skin cancer as per records Recurrent admissions, functional disability past tobacco abuse PT OT eval DVT prophylaxis. SCDs Re: Thrombocytopenia DNR Disposition Lives at home PT and OT evaluation in progress, will likely need SNF/rehab - pt and family are inclined for [facility], CM involved Admission and Anticipated Discharge Date Admission Date: January 28, 2023 Subjective Pt seen in follow up for worsening leg edema, chronic lymphedema, etc seen resting in bed, having lunch, in NAD legs less swollen no chest pain, dyspnea, palpitations, dizziness no fever/chills Says she had a good night, slept well. Then was sitting too long on a toilet this AM and her legs got swollen -> then she started to feel weak and tired Review of Systems Review of Systems: All systems reviewed & are unremarkable except as noted in Subjective Physical Exam Physical Exam: General- elderly F in NAD Eyes- anicteric Neck- no JVD Lungs- clear breath sounds bilaterally, no rales/wheezes Heart- normal rate, regular rhythm; no murmurs Abdomen- normal bowel sounds, nondistended, soft, nontender Extremities- grade 1 lower extremity edema (much improved) no erythema/warmth/tenderness Neuro- alert, oriented x 3; speech fluent, answers appropriately, moves extremities Skin- warm & dry Results & Data Results & Data Vital Signs (Past 12 Hours) Vital Signs Temp Pulse Pulse Resp BP BP Pulse Ox 02/04/23 08:19 36.9 C 83 18 131/57 L 93 02/04/23 07:45 85 02/04/23 02:26 36.7 C 79 16 123/56 L 90 02/03/23 23:34 81 02/03/23 23:22 37 C 82 18 134/60 90 O2 Del Method 02/04/23 08:19 Room Air 02/04/23 07:45 02/04/23 02:26 Room Air 02/03/23 23:34 02/03/23 23:22 Room Air Laboratory Results 02/04/23 Range/Units 06:16 Sodium 132 L (136-145) mmol/L Potassium 3.7 (3.5-5.1) mmol/L Chloride 99 (98-107) mmol/L Carbon Dioxide 30 (21-32) mmol/L Anion Gap 3 (3-11) BUN 24 H (6-23) mg/dl Creatinine 0.60 (0.6-1.2) mg/dl Est Cr Clr Drug Dosing 48.9 ml/min Est GFR ( Amer) 94.3 ml/min Est GFR (Non-Af Amer) 81.4 ml/min BUN/Creatinine Ratio 40.0 H (10-20) Glucose 94 (70-99(Fasting)) mg/dl Calcium 8.9 (8.6-10.3) mg/dl Magnesium 2.0 (1.7-2.4) mg/dl Medications Administered Current Inpatient Medications Acetaminophen (Acetaminophen 325 Mg Tab) 650 mg PO Q4H PRN PRN Reason: Pain or Fever Stop: 02/27/23 22:09 Last Admin: 02/03/23 03:20 Dose: 650 mg Bisacodyl (Bisacodyl 10 Mg Supp) 10 mg IA DAILY PRN PRN Reason: Constipation Stop: 03/04/23 12:23 Cyanocobalamin (Cyanocobalamin (B-12) 100 Mcg Tablet) 200 mcg PO DAILY [facility] Stop: 02/28/23 08:59 Last Admin: 02/04/23 09:20 Dose: 200 mcg Docusate Sodium (Docusate Sodium 100 Mg Cap) 100 mg PO BID [facility] Stop: 03/04/23 12:29 Last Admin: 02/04/23 09:21 Dose: 100 mg Dorzolamide/Timolol (Dorzolamide/Timolol 22.3/6.8mg/Ml 10 Ml Btl) 1 drops OP BID [facility] Stop: 02/27/23 22:14 Last Admin: 02/04/23 09:21 Dose: 1 drops Doxycycline Hyclate (Doxycycline Hyclate 100 Mg Cap) 100 mg PO BID [facility] Stop: 02/05/23 08:59 Last Admin: 02/04/23 09:21 Dose: 100 mg Enoxaparin Sodium (Enoxaparin Inj 30 Mg/0.3 Ml Syr) 30 mg SQ QAM [facility] Stop: 03/03/23 19:29 Last Admin: 02/02/23 08:46 Dose: 30 mg Ferrous Sulfate (Ferrous Sulfate 325 Mg Tab) 325 mg PO QAM [facility] Stop: 02/28/23 08:59 Last Admin: 02/04/23 09:20 Dose: 325 mg Furosemide (Furosemide Inj 20 Mg/2 Ml Vial) 20 mg IV BID17 [facility] Stop: 02/28/23 10:14 Last Admin: 02/01/23 07:58 Dose: 20 mg Promethazine HCl 6.25 mg/ (Sodium Chloride) 50.25 mls @ 201 mls/hr IV Q6H PRN PRN Reason: Nausea And Vomiting Stop: 02/27/23 22:09 Last Infusion: 01/29/23 17:38 Dose: Infused Ceftriaxone Sodium 1,000 mg/ (Dextrose) 50 mls @ 100 mls/hr IV Q24H [facility]; Protocol Stop: 02/08/23 20:29 Last Infusion: 02/03/23 23:23 Dose: Infused Lactobacillus Acidophilus (Advanced Probiotic 1250 Mg Capsule) 2 cap PO DAILY [facility] Stop: 03/03/23 19:59 Last Admin: 02/04/23 09:20 Dose: 2 cap Levothyroxine Sodium (Levothyroxine Sodium 100 Mcg Tablet) 100 mcg PO DAILYBB [facility] Stop: 02/28/23 06:29 Last Admin: 02/04/23 05:17 Dose: 100 mcg Linaclotide (Linaclotide 145 Mcg Capsule) 145 mcg PO DAILYBB [facility] Stop: 02/28/23 06:29 Last Admin: 02/04/23 05:17 Dose: 145 mcg Magnesium Oxide (Magnesium Oxide 400 Mg Tab) 400 mg PO BID [facility] Stop: 03/03/23 14:59 Last Admin: 02/02/23 08:45 Dose: 400 mg Multi-Ingredient Cream (Eucerin Cr 120 Gm Jar) 1 appln EXT BID PRN PRN Reason: Dryness Stop: 03/02/23 15:48 Mycophenolate Mofetil (Mycophenolate Mofetil 250 Mg Cap) 500 mg PO DAILY [facility] Stop: 02/28/23 08:59 Last Admin: 02/04/23 09:20 Dose: 500 mg Oxycodone HCl (Oxycodone Hcl Ir 5 Mg Tab (Immediate Release)) 5 mg PO Q4H PRN PRN Reason: Pain Stop: 02/11/23 22:09 Last Admin: 02/03/23 19:45 Dose: 5 mg Pantoprazole Sodium (Pantoprazole 40 Mg Tab) 40 mg PO DAILYBB [facility] Stop: 02/28/23 06:29 Last Admin: 02/04/23 05:17 Dose: 40 mg Prednisone (Prednisone 5 Mg Tab) 5 mg PO DAILY [facility] Stop: 02/28/23 08:59 Last Admin: 02/04/23 09:20 Dose: 5 mg
[2023-02-04] MEDS ORDERED: FUROSEMIDE 40 MG TAB PO SCH (10:15)
[2023-02-04] MEDS: FUROSEMIDE 40 MG TAB PO SCH (16:56)
[2023-02-04] MEDS: oxyCODONE HCL IR 5 MG TAB (IMMEDIATE RELEASE) PO PRN (19:53)
[2023-02-04] MEDS: cefTRIAXone SODIUM 1,000 MG in DEXTROSE 5 % MINI-B 50 ML IV SCH (19:54)
[2023-02-05] MEDS: LEVOTHYROXINE SODIUM 100 MCG TABLET PO SCH (06:03)
[2023-02-05] MEDS: LINACLOTIDE 145 MCG CAPSULE PO SCH (06:03)
[2023-02-05] MEDS: PANTOprazole 40 MG TAB PO SCH (06:03)
[2023-02-05 07:14] LABS: BUN Creatinine Ratio 36.2 (10-20); Calcium 8.8 mg/dl (8.6-10.3); Creatinine Clr Calc Pharmacy 50.6 ml/min; Est GFR (African American) 95.4 ml/min; Est GFR (Non-African American) 82.3 ml/min; Hematocrit (blood only) 25.2 % (37.0-47.0); Hemoglobin 8.4 g/dl (12.0-16.0); Mean Corpuscular Hemoglobin 38.4 pg (25.0-34.0); Mean Corpuscular Hgb Conc 33.3 g/dL (32.0-36.0); Mean Corpuscular Volume 115.1 fL (80.0-100.0); Nucleated RBC # (auto) 0.13 K/uL (0.00-0.12); Nucleated RBC % (auto) 0.8 %; Phosphorus 2.8 mg/dl (2.5-4.9); Platelet Count 65 K/uL (130-400); Potassium 3.7 mmol/L (3.5-5.1); RDW Coefficient of Variation 25.8 % (11.5-14.5); RDW Standard Deviation 107.9 fL (36.4-46.3); Red Blood Count 2.19 M/uL (4.20-5.40); White Blood Count 17.29 K/ul (4.8-10.8)
[2023-02-05] MEDS: ADVANCED PROBIOTIC 1250 MG CAPSULE PO SCH (09:32)
[2023-02-05] MEDS: CYANOCOBALAMIN (B-12) 100 MCG TABLET PO SCH (09:33)
[2023-02-05] MEDS: MYCOPHENOLATE MOFETIL 250 MG CAP PO SCH (09:34)
[2023-02-05] MEDS: FUROSEMIDE 40 MG TAB PO SCH ×2 (09:35→16:56)
[2023-02-05] MEDS: FERROUS SULFATE 325 MG TAB PO SCH (09:36)
[2023-02-05] MEDS: DOCUSATE SODIUM 100 MG CAP PO SCH ×2 (09:36→19:43)
[2023-02-05] MEDS: predniSONE 5 MG TAB PO SCH (09:37)
[2023-02-05] MEDS: DORZOLAMIDE/TIMOLOL 22.3/6.8MG/ML 10 ML BTL OP SCH ×3 (09:53→22:33)
[2023-02-05] MEDS: ACETAMINOPHEN 325 MG TAB PO PRN (12:13)
--- NOTE | 2023-02-05 13:01 | Hospitalist Progress Note ---
Date of Service February 05, 2023 Assessment & Plan (1) Lymphedema: Plan: WORSENING LEG EDEMA HISTORY OF CHRONIC LYMPHEDEMA POSSIBLE COMPONENT OF CELLULITIS, LEFT LOWER LEG Chronic lymphedema as per records Chronic prednisone use likely contributing Immunocompromised patient (hx chronic steroid Rx/CellCept Rx for pemphigoid) Echo (01/29/2023): EF 60 to 65% Mild concentric LVH R ventricular systolic pressure 30-40mmHg albumin 2.9 X-rays: No osteomyelitis Diuresing well, leg swelling improving daily Initially Lasix 20 mg IV twice daily, now transitioned to PO Doxycycline - finished 7 day course, cont. ceftriaxone Monitor electrolytes - hypomagnesemia, hypokalemia - secondary to lasix - replaced and monitor PT and OT evaluation Discussed w/ pt's daughter - continues to feel quite weak, temp 37.7, several times - daughter concerned about mild elev. in temp. UA on admission negative, ordered repeat, blood cultx on admission negative - repeated. Added empiric ceftriaxone to doxy. Cont. to closely monitor. Temp initially improved - then spiked again once on 02/03 Blood cultx - 01/29 - negative for 5 days Blood cultx - 02/01 - negative for 48 hrs UA on 01/28 and 02/02 - both negative CXR - with mild pulm. vasc congestion - pt is currently breathing on RA, comfortable, saturating 96% LLQ pain - started on02/05 AM - pt reports having BM -abdomen soft, + bowel sounds - KUB obtained - negative - Pain has resolved Acute on chronic hyponatremia secondary to illness/possible right-sided heart failure/fluid retention Sodium improved 134 - cont. to monitor Underweight with BMI 19.1 Other chronic conditions: valvular 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, TTE 2020) hx ovarian cancer status post surgery/chemotherapy chronic thrombocytopenia secondary to myeloproliferative neoplasm, intolerant of prior outpatient treatments, patient declines further care as per outpatient [facility] Hematology note from 3 months ago --Platelet level stable chronic anemia (baseline hemoglobin 8-9), hemoglobin at baseline --Hemoglobin stable primary hyperparathyroidism, failed attempts to see Endocrinology outpatient as per records postsurgical hypothyroidism, euthyroid history chronic LE DVT, not on anticoagulation secondary to bleeding risk skin cancer as per records Recurrent admissions, functional disability past tobacco abuse PT OT eval DVT prophylaxis. SCDs Re: Thrombocytopenia DNR Disposition Lives at home PT and OT evaluation in progress, will likely need SNF/rehab - pt and family are inclined for [facility], CM involved Admission and Anticipated Discharge Date Admission Date: January 28, 2023 Subjective Pt seen in follow up for worsening leg edema, chronic lymphedema, etc seen resting in bed, in NAD legs much less swollen no chest pain, dyspnea, palpitations, dizziness no fever/chills Today complains of LLQ abd. pain - KUB obtained - negative. Pt is having BMs. Pain improved later in a day. Review of Systems Review of Systems: All systems reviewed & are unremarkable except as noted in Subjective Physical Exam Physical Exam: General- elderly F in NAD Eyes- anicteric Neck- no JVD Lungs- clear breath sounds bilaterally, no rales/wheezes Heart- normal rate, regular rhythm; no murmurs Abdomen- normal bowel sounds, nondistended, soft, nontender Extremities- grade 1 lower extremity edema (much improved) no erythema/warmth/tenderness Neuro- alert, oriented x 3; speech fluent, answers appropriately, moves extremities Skin- warm & dry Results & Data Results & Data Vital Signs (Past 12 Hours) Vital Signs Temp Pulse Pulse Pulse Resp BP BP 02/05/23 11:42 36.7 C 80 14 136/55 L 02/05/23 08:47 84 02/05/23 08:23 36.7 C 88 20 153/53 H 02/05/23 03:35 36.8 C 79 18 156/65 H Pulse Ox O2 Del Method 02/05/23 11:42 92 Room Air 02/05/23 08:47 02/05/23 08:23 93 Room Air 02/05/23 03:35 94 Room Air Laboratory Results 02/05/23 02/05/23 Range/Units 06:06 06:06 WBC 17.29 H (4.8-10.8) K/ul RBC 2.19 L (4.20-5.40) M/uL Hgb 8.4 L (12.0-16.0) g/dl Hct 25.2 L (37.0-47.0) % MCV 115.1 H (80.0-100.0) fL MCH 38.4 H (25.0-34.0) pg MCHC 33.3 (32.0-36.0) g/dL RDW Std Deviation 107.9 H (36.4-46.3) fL RDW Coeff of Yee 25.8 H (11.5-14.5) % Plt Count 65 L (130-400) K/uL Absolute Nucleated RBC 0.13 H (0.00-0.12) K/uL Nucleated RBC % (auto) 0.8 % Sodium 134 L (136-145) mmol/L Potassium 3.7 (3.5-5.1) mmol/L Chloride 98 (98-107) mmol/L Carbon Dioxide 31 (21-32) mmol/L Anion Gap 5 (3-11) BUN 21 (6-23) mg/dl Creatinine 0.58 L (0.6-1.2) mg/dl Est Cr Clr Drug Dosing 50.6 ml/min Est GFR ( Amer) 95.4 ml/min Est GFR (Non-Af Amer) 82.3 ml/min BUN/Creatinine Ratio 36.2 H (10-20) Glucose 92 (70-99(Fasting)) mg/dl Calcium 8.8 (8.6-10.3) mg/dl Phosphorus 2.8 (2.5-4.9) mg/dl Magnesium 2.0 (1.7-2.4) mg/dl Medications Administered Current Inpatient Medications Acetaminophen (Acetaminophen 325 Mg Tab) 650 mg PO Q4H PRN PRN Reason: Pain or Fever Stop: 02/27/23 22:09 Last Admin: 02/05/23 12:13 Dose: 650 mg Bisacodyl (Bisacodyl 10 Mg Supp) 10 mg CO DAILY PRN PRN Reason: Constipation Stop: 03/04/23 12:23 Cyanocobalamin (Cyanocobalamin (B-12) 100 Mcg Tablet) 200 mcg PO DAILY [facility] Stop: 02/28/23 08:59 Last Admin: 02/05/23 09:33 Dose: 200 mcg Docusate Sodium (Docusate Sodium 100 Mg Cap) 100 mg PO BID [facility] Stop: 03/04/23 12:29 Last Admin: 02/05/23 09:36 Dose: 100 mg Dorzolamide/Timolol (Dorzolamide/Timolol 22.3/6.8mg/Ml 10 Ml Btl) 1 drops OP BID [facility] Stop: 02/27/23 22:14 Last Admin: 02/05/23 09:53 Dose: 1 drops Enoxaparin Sodium (Enoxaparin Inj 30 Mg/0.3 Ml Syr) 30 mg SQ QAM [facility] Stop: 03/03/23 19:29 Last Admin: 02/02/23 08:46 Dose: 30 mg Ferrous Sulfate (Ferrous Sulfate 325 Mg Tab) 325 mg PO QAM [facility] Stop: 02/28/23 08:59 Last Admin: 02/05/23 09:36 Dose: 325 mg Furosemide (Furosemide Inj 20 Mg/2 Ml Vial) 20 mg IV BID17 [facility] Stop: 02/28/23 10:14 Last Admin: 02/01/23 07:58 Dose: 20 mg Furosemide (Furosemide 40 Mg Tab) 40 mg PO BID17 [facility] Stop: 03/06/23 16:59 Last Admin: 02/05/23 09:35 Dose: 40 mg Promethazine HCl 6.25 mg/ (Sodium Chloride) 50.25 mls @ 201 mls/hr IV Q6H PRN PRN Reason: Nausea And Vomiting Stop: 02/27/23 22:09 Last Infusion: 01/29/23 17:38 Dose: Infused Ceftriaxone Sodium 1,000 mg/ (Dextrose) 50 mls @ 100 mls/hr IV Q24H [facility]; Protocol Stop: 02/08/23 20:29 Last Infusion: 02/04/23 20:40 Dose: Infused Lactobacillus Acidophilus (Advanced Probiotic 1250 Mg Capsule) 2 cap PO DAILY [facility] Stop: 03/03/23 19:59 Last Admin: 02/05/23 09:32 Dose: 2 cap Levothyroxine Sodium (Levothyroxine Sodium 100 Mcg Tablet) 100 mcg PO DAILYBB [facility] Stop: 02/28/23 06:29 Last Admin: 02/05/23 06:03 Dose: 100 mcg Linaclotide (Linaclotide 145 Mcg Capsule) 145 mcg PO DAILYBB [facility] Stop: 02/28/23 06:29 Last Admin: 02/05/23 06:03 Dose: 145 mcg Magnesium Oxide (Magnesium Oxide 400 Mg Tab) 400 mg PO BID [facility] Stop: 03/03/23 14:59 Last Admin: 02/02/23 08:45 Dose: 400 mg Multi-Ingredient Cream (Eucerin Cr 120 Gm Jar) 1 appln EXT BID PRN PRN Reason: Dryness Stop: 03/02/23 15:48 Mycophenolate Mofetil (Mycophenolate Mofetil 250 Mg Cap) 500 mg PO DAILY [facility] Stop: 02/28/23 08:59 Last Admin: 02/05/23 09:34 Dose: 500 mg Oxycodone HCl (Oxycodone Hcl Ir 5 Mg Tab (Immediate Release)) 5 mg PO Q4H PRN PRN Reason: Pain Stop: 02/11/23 22:09 Last Admin: 02/04/23 19:53 Dose: 5 mg Pantoprazole Sodium (Pantoprazole 40 Mg Tab) 40 mg PO DAILYBB [facility] Stop: 02/28/23 06:29 Last Admin: 02/05/23 06:03 Dose: 40 mg Prednisone (Prednisone 5 Mg Tab) 5 mg PO DAILY [facility] Stop: 02/28/23 08:59 Last Admin: 02/05/23 09:37 Dose: 5 mg
--- NOTE | 2023-02-05 16:38 | XRay Report ---
XR KUB/Abdomen 1 view CLINICAL HISTORY: LLQ abd. pain TECHNIQUE: 1 view of the abdomen was obtained. Comparison: None available at the time of this dictation. FINDINGS: Cholecystomy clips are seen in the right upper quadrant. Vertically oriented lucencies in the right l ower chest wall and right upper quadrant of the abdomen are nonspecific and may lie outside the patie nt. The osseous structures are grossly unremarkable. The bowel gas pattern is nonobstructive. A moder ate amount of stool is noted within the large bowel. IMPRESSION: No evidence of bowel obstruction. Moderate stool burden without evidence of inspissation. ACT 112: Negative or not required by law. Electronically signed by: Pablito Lebron M.D. 02/05/2023 4:36 PM
[2023-02-05] MEDS: cefTRIAXone SODIUM 1,000 MG in DEXTROSE 5 % MINI-B 50 ML IV SCH (19:43)
[2023-02-05] MEDS: oxyCODONE HCL IR 5 MG TAB (IMMEDIATE RELEASE) PO PRN (19:44)
[2023-02-06] MEDS: oxyCODONE HCL IR 5 MG TAB (IMMEDIATE RELEASE) PO PRN (01:47)
[2023-02-06] MEDS: LINACLOTIDE 145 MCG CAPSULE PO SCH (05:48)
[2023-02-06] MEDS: PANTOprazole 40 MG TAB PO SCH (05:48)
[2023-02-06] MEDS: LEVOTHYROXINE SODIUM 100 MCG TABLET PO SCH (05:48)
[2023-02-06 06:51] LABS: Hematocrit (blood only) 24.8 % (37.0-47.0); Hemoglobin 8.3 g/dl (12.0-16.0); Mean Corpuscular Hemoglobin 38.6 pg (25.0-34.0); Mean Corpuscular Hgb Conc 33.5 g/dL (32.0-36.0); Mean Corpuscular Volume 115.3 fL (80.0-100.0); Nucleated RBC # (auto) 0.15 K/uL (0.00-0.12); Platelet Count 62 K/uL (130-400); RDW Coefficient of Variation 26.2 % (11.5-14.5); RDW Standard Deviation 110.4 fL (36.4-46.3); Red Blood Count 2.15 M/uL (4.20-5.40); White Blood Count 15.42 K/ul (4.8-10.8)
[2023-02-06 07:12] LABS: BUN Creatinine Ratio 29.2 (10-20); Calcium 8.8 mg/dl (8.6-10.3); Creatinine Clr Calc Pharmacy 45.1 ml/min; Est GFR (African American) 91.9 ml/min; Est GFR (Non-African American) 79.3 ml/min; Magnesium 1.9 mg/dl (1.7-2.4); Potassium 3.3 mmol/L (3.5-5.1)
[2023-02-06] MEDS ORDERED: POTASSIUM CHLORIDE CRTAB 20 MEQ TABCR PO STA (08:11)
[2023-02-06] MEDS: CYANOCOBALAMIN (B-12) 100 MCG TABLET PO SCH (09:20)
[2023-02-06] MEDS: FERROUS SULFATE 325 MG TAB PO SCH (09:20)
[2023-02-06] MEDS: predniSONE 5 MG TAB PO SCH (09:20)
[2023-02-06] MEDS: MYCOPHENOLATE MOFETIL 250 MG CAP PO SCH (09:20)
[2023-02-06] MEDS: FUROSEMIDE 40 MG TAB PO SCH (09:20)
[2023-02-06] MEDS: DORZOLAMIDE/TIMOLOL 22.3/6.8MG/ML 10 ML BTL OP SCH ×2 (09:21→20:29)
[2023-02-06] MEDS: ADVANCED PROBIOTIC 1250 MG CAPSULE PO SCH (09:21)
[2023-02-06] MEDS: DOCUSATE SODIUM 100 MG CAP PO SCH ×2 (09:21→20:28)
--- NOTE | 2023-02-06 17:15 | Hospitalist Progress Note ---
Date of Service February 06, 2023 Assessment & Plan (1) Lymphedema: Plan: WORSENING LEG EDEMA HISTORY OF CHRONIC LYMPHEDEMA POSSIBLE COMPONENT OF CELLULITIS, LEFT LOWER LEG Chronic lymphedema as per records Chronic prednisone use likely contributing Immunocompromised patient (hx chronic steroid Rx/CellCept Rx for pemphigoid) Echo (01/29/2023): EF 60 to 65% Mild concentric LVH R ventricular systolic pressure 30-40mmHg albumin 2.9 X-rays: No osteomyelitis Diuresing well, leg swelling improving daily Initially Lasix 20 mg IV twice daily, now transitioned to PO Doxycycline - finished 7 day course, cont. ceftriaxone Monitor electrolytes - hypomagnesemia, hypokalemia - secondary to lasix - replaced and monitor PT and OT evaluation Discussed w/ pt's daughter - continues to feel quite weak, temp 37.7, several times - daughter concerned about mild elev. in temp. UA on admission negative, ordered repeat, blood cultx on admission negative - repeated. Added empiric ceftriaxone to doxy. Cont. to closely monitor. Temp initially improved - then spiked again once on 02/03 Blood cultx - 01/29 - negative for 5 days Blood cultx - 02/01 - negative for 48 hrs UA on 01/28 and 02/02 - both negative CXR - with mild pulm. vasc congestion - pt is currently breathing on RA, comfortable, saturating 96% LLQ pain - started on02/05 AM - pt reports having BM -abdomen soft, + bowel sounds - KUB obtained - negative - Pain has resolved Acute on chronic hyponatremia secondary to illness/possible right-sided heart failure/fluid retention Sodium improved 134 - cont. to monitor Underweight with BMI 19.1 Other chronic conditions: valvular 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, TTE 2020) hx ovarian cancer status post surgery/chemotherapy chronic thrombocytopenia secondary to myeloproliferative neoplasm, intolerant of prior outpatient treatments, patient declines further care as per outpatient [facility] Hematology note from 3 months ago --Platelet level stable chronic anemia (baseline hemoglobin 8-9), hemoglobin at baseline --Hemoglobin stable primary hyperparathyroidism, failed attempts to see Endocrinology outpatient as per records postsurgical hypothyroidism, euthyroid history chronic LE DVT, not on anticoagulation secondary to bleeding risk skin cancer as per records Recurrent admissions, functional disability past tobacco abuse PT OT eval DVT prophylaxis. SCDs Re: Thrombocytopenia DNR Disposition Lives at home PT and OT evaluation in progress, will likely need SNF/rehab - pt and family are inclined for [facility], CM involved Admission and Anticipated Discharge Date Admission Date: January 28, 2023 Subjective Pt seen in follow up for worsening leg edema, chronic lymphedema, etc seen resting in bed, in NAD legs much less swollen no chest pain, dyspnea, palpitations, dizziness no fever/chills No abd. pain. Today says "her botton feels raw" from all the lasix - and wants to hold lasix . Leg edema much improved. RN providing skin care. Will hold lasix and cont. to monitor. Review of Systems Review of Systems: All systems reviewed & are unremarkable except as noted in Subjective Physical Exam Physical Exam: General- elderly F in NAD Eyes- anicteric Neck- no JVD Lungs- clear breath sounds bilaterally, no rales/wheezes Heart- normal rate, regular rhythm; no murmurs Abdomen- normal bowel sounds, nondistended, soft, nontender Extremities- grade 1 lower extremity edema (much improved) no erythema/warmth/tenderness Neuro- alert, oriented x 3; speech fluent, answers appropriately, moves extremities Skin- warm & dry Results & Data Results & Data Vital Signs (Past 12 Hours) Vital Signs Temp Pulse Pulse Pulse Resp BP BP 02/06/23 16:07 82 02/06/23 15:28 37.2 C 77 20 120/62 02/06/23 11:00 02/06/23 11:40 37.5 C 80 20 119/68 02/06/23 07:49 36.9 C 88 20 149/67 H 02/06/23 07:30 86 Pulse Ox Pulse Ox O2 Del Method O2 Del Method 02/06/23 16:07 02/06/23 15:28 95 Room Air 02/06/23 11:00 93 Room Air 02/06/23 11:40 93 Room Air 02/06/23 07:49 94 Room Air 02/06/23 07:30 Laboratory Results 02/06/23 02/06/23 Range/Units 06:12 06:12 WBC 15.42 H (4.8-10.8) K/ul RBC 2.15 L (4.20-5.40) M/uL Hgb 8.3 L (12.0-16.0) g/dl Hct 24.8 L (37.0-47.0) % MCV 115.3 H (80.0-100.0) fL MCH 38.6 H (25.0-34.0) pg MCHC 33.5 (32.0-36.0) g/dL RDW Std Deviation 110.4 H (36.4-46.3) fL RDW Coeff of Yee 26.2 H (11.5-14.5) % Plt Count 62 L (130-400) K/uL Absolute Nucleated RBC 0.15 H (0.00-0.12) K/uL Nucleated RBC % (auto) 1.0 % Sodium 134 L (136-145) mmol/L Potassium 3.3 L (3.5-5.1) mmol/L Chloride 99 (98-107) mmol/L Carbon Dioxide 31 (21-32) mmol/L Anion Gap 4 (3-11) BUN 19 (6-23) mg/dl Creatinine 0.65 (0.6-1.2) mg/dl Est Cr Clr Drug Dosing 45.1 ml/min Est GFR ( Amer) 91.9 ml/min Est GFR (Non-Af Amer) 79.3 ml/min BUN/Creatinine Ratio 29.2 H (10-20) Glucose 93 (70-99(Fasting)) mg/dl Calcium 8.8 (8.6-10.3) mg/dl Phosphorus 3.0 (2.5-4.9) mg/dl Magnesium 1.9 (1.7-2.4) mg/dl Medications Administered Current Inpatient Medications Acetaminophen (Acetaminophen 325 Mg Tab) 650 mg PO Q4H PRN PRN Reason: Pain or Fever Stop: 02/27/23 22:09 Last Admin: 02/05/23 12:13 Dose: 650 mg Bisacodyl (Bisacodyl 10 Mg Supp) 10 mg DE DAILY PRN PRN Reason: Constipation Stop: 03/04/23 12:23 Cyanocobalamin (Cyanocobalamin (B-12) 100 Mcg Tablet) 200 mcg PO DAILY [facility] Stop: 02/28/23 08:59 Last Admin: 02/06/23 09:20 Dose: 200 mcg Docusate Sodium (Docusate Sodium 100 Mg Cap) 100 mg PO BID [facility] Stop: 03/04/23 12:29 Last Admin: 02/06/23 09:21 Dose: 100 mg Dorzolamide/Timolol (Dorzolamide/Timolol 22.3/6.8mg/Ml 10 Ml Btl) 1 drops OP BID [facility] Stop: 02/27/23 22:14 Last Admin: 02/06/23 09:21 Dose: 1 drops Enoxaparin Sodium (Enoxaparin Inj 30 Mg/0.3 Ml Syr) 30 mg SQ QAM [facility] Stop: 03/03/23 19:29 Last Admin: 02/02/23 08:46 Dose: 30 mg Ferrous Sulfate (Ferrous Sulfate 325 Mg Tab) 325 mg PO QAM [facility] Stop: 02/28/23 08:59 Last Admin: 02/06/23 09:20 Dose: 325 mg Furosemide (Furosemide Inj 20 Mg/2 Ml Vial) 20 mg IV BID17 [facility] Stop: 02/28/23 10:14 Last Admin: 02/01/23 07:58 Dose: 20 mg Furosemide (Furosemide 40 Mg Tab) 40 mg PO BID17 [facility] Stop: 03/06/23 16:59 Last Admin: 02/06/23 09:20 Dose: 40 mg Promethazine HCl 6.25 mg/ (Sodium Chloride) 50.25 mls @ 201 mls/hr IV Q6H PRN PRN Reason: Nausea And Vomiting Stop: 02/27/23 22:09 Last Infusion: 01/29/23 17:38 Dose: Infused Ceftriaxone Sodium 1,000 mg/ (Dextrose) 50 mls @ 100 mls/hr IV Q24H [facility]; Protocol Stop: 02/08/23 20:29 Last Infusion: 02/05/23 21:47 Dose: Infused Lactobacillus Acidophilus (Advanced Probiotic 1250 Mg Capsule) 2 cap PO DAILY [facility] Stop: 03/03/23 19:59 Last Admin: 02/06/23 09:21 Dose: 2 cap Levothyroxine Sodium (Levothyroxine Sodium 100 Mcg Tablet) 100 mcg PO DAILYBB [facility] Stop: 02/28/23 06:29 Last Admin: 02/06/23 05:48 Dose: 100 mcg Linaclotide (Linaclotide 145 Mcg Capsule) 145 mcg PO DAILYBB [facility] Stop: 02/28/23 06:29 Last Admin: 02/06/23 05:48 Dose: 145 mcg Magnesium Oxide (Magnesium Oxide 400 Mg Tab) 400 mg PO BID [facility] Stop: 03/03/23 14:59 Last Admin: 02/02/23 08:45 Dose: 400 mg Multi-Ingredient Cream (Eucerin Cr 120 Gm Jar) 1 appln EXT BID PRN PRN Reason: Dryness Stop: 03/02/23 15:48 Mycophenolate Mofetil (Mycophenolate Mofetil 250 Mg Cap) 500 mg PO DAILY [facility] Stop: 02/28/23 08:59 Last Admin: 02/06/23 09:20 Dose: 500 mg Oxycodone HCl (Oxycodone Hcl Ir 5 Mg Tab (Immediate Release)) 5 mg PO Q4H PRN PRN Reason: Pain Stop: 02/11/23 22:09 Last Admin: 02/06/23 01:47 Dose: 5 mg Pantoprazole Sodium (Pantoprazole 40 Mg Tab) 40 mg PO DAILYBB [facility] Stop: 02/28/23 06:29 Last Admin: 02/06/23 05:48 Dose: 40 mg Prednisone (Prednisone 5 Mg Tab) 5 mg PO DAILY [facility] Stop: 02/28/23 08:59 Last Admin: 02/06/23 09:20 Dose: 5 mg
[2023-02-06] MEDS: cefTRIAXone SODIUM 1,000 MG in DEXTROSE 5 % MINI-B 50 ML IV SCH (20:27)
[2023-02-07] MEDS: LINACLOTIDE 145 MCG CAPSULE PO SCH (05:57)
[2023-02-07] MEDS: LEVOTHYROXINE SODIUM 100 MCG TABLET PO SCH (05:57)
[2023-02-07] MEDS: PANTOprazole 40 MG TAB PO SCH (05:57)
[2023-02-07 07:48] LABS: BUN Creatinine Ratio 32.8 (10-20); Calcium 9.1 mg/dl (8.6-10.3); Creatinine Clr Calc Pharmacy 48.1 ml/min; Est GFR (African American) 93.8 ml/min; Est GFR (Non-African American) 80.9 ml/min; Potassium 3.9 mmol/L (3.5-5.1)
[2023-02-07] MEDS: ADVANCED PROBIOTIC 1250 MG CAPSULE PO SCH (08:09)
[2023-02-07] MEDS: MYCOPHENOLATE MOFETIL 250 MG CAP PO SCH (08:09)
[2023-02-07] MEDS: FERROUS SULFATE 325 MG TAB PO SCH (08:09)
[2023-02-07] MEDS: predniSONE 5 MG TAB PO SCH (08:10)
[2023-02-07] MEDS: DOCUSATE SODIUM 100 MG CAP PO SCH ×2 (08:11→20:38)
[2023-02-07] MEDS: CYANOCOBALAMIN (B-12) 100 MCG TABLET PO SCH (08:11)
[2023-02-07] MEDS: DORZOLAMIDE/TIMOLOL 22.3/6.8MG/ML 10 ML BTL OP SCH ×2 (08:11→20:39)
[2023-02-07] MEDS: FUROSEMIDE 40 MG TAB PO SCH (09:54)
--- NOTE | 2023-02-07 15:09 | Hospitalist Progress Note ---
Date of Service February 07, 2023 Assessment & Plan (1) Lymphedema: Plan: WORSENING LEG EDEMA HISTORY OF CHRONIC LYMPHEDEMA POSSIBLE COMPONENT OF CELLULITIS, LEFT LOWER LEG Chronic lymphedema as per records Chronic prednisone use likely contributing Immunocompromised patient (hx chronic steroid Rx/CellCept Rx for pemphigoid) Echo (01/29/2023): EF 60 to 65% Mild concentric LVH R ventricular systolic pressure 30-40mmHg albumin 2.9 X-rays: No osteomyelitis Diuresing well, leg swelling improving daily Initially Lasix 20 mg IV twice daily, now transitioned to PO - plan to continue w/ lasix 20 tid Doxycycline - finished 7 day course, cont. ceftriaxone - finish ceftriaxone on 02/07 9(for cellulitis) - as the rest of infectious work-up negative Monitor electrolytes - hypomagnesemia, hypokalemia - secondary to lasix - replaced and monitor PT and OT evaluation Discussed w/ pt's daughter - continues to feel quite weak, temp 37.7, several times - daughter concerned about mild elev. in temp. UA on admission negative, ordered repeat, blood cultx on admission negative - repeated. Added empiric ceftriaxone to doxy. Cont. to closely monitor. Temp initially improved - then spiked again once on 02/03 Blood cultx - 01/29 - negative for 5 days Blood cultx - 02/01 - negative for 48 hrs UA on 01/28 and 02/02 - both negative CXR - with mild pulm. vasc congestion - pt is currently breathing on RA, comfortable, saturating 96% LLQ pain - started on15 AM - pt reports having BM -abdomen soft, + bowel sounds - KUB obtained - negative - Pain has resolved Acute on chronic hyponatremia secondary to illness/possible right-sided heart failure/fluid retention Sodium improved 134 - cont. 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 SCDs Re: Thrombocytopenia DNR Disposition Lives at home PT and OT evaluation in progress, will likely need SNF/rehab - pt and family are inclined for [facility], CM involved Admission and Anticipated Discharge Date Admission Date: January 28, 2023 Subjective Pt seen in follow up for worsening leg edema, chronic lymphedema, etc seen resting in bed, in NAD legs much less swollen no chest pain, dyspnea, palpitations, dizziness no fever/chills No abd. pain. Daughter at the bedside and updated - plan to DC to rehab/SNF - CM involved Review of Systems Review of Systems: All systems reviewed & are unremarkable except as noted in Subjective Physical Exam Physical Exam: General- elderly F in NAD Eyes- anicteric Neck- no JVD Lungs- clear breath sounds bilaterally, no rales/wheezes Heart- normal rate, regular rhythm; no murmurs Abdomen- normal bowel sounds, nondistended, soft, nontender Extremities- grade 1 lower extremity edema (much improved) no erythema/warmth/tenderness Neuro- alert, oriented x 3; speech fluent, answers appropriately, moves extremities Skin- warm & dry Results & Data Results & Data Vital Signs (Past 12 Hours) Vital Signs Temp Pulse Pulse Resp BP BP Pulse Ox 02/07/23 11:00 02/07/23 11:26 37.1 C 83 17 135/58 L 94 02/07/23 08:26 02/07/23 08:03 81 02/07/23 07:42 36.8 C 83 17 134/58 L 91 02/07/23 04:10 36.8 C 78 18 124/59 L 93 Pulse Ox O2 Del Method O2 Del Method 02/07/23 11:00 94 Room Air 02/07/23 11:26 Room Air 02/07/23 08:26 Room Air 02/07/23 08:03 02/07/23 07:42 Room Air 02/07/23 04:10 Room Air Laboratory Results 02/07/23 Range/Units 07:10 Sodium 132 L (136-145) mmol/L Potassium 3.9 (3.5-5.1) mmol/L Chloride 98 (98-107) mmol/L Carbon Dioxide 30 (21-32) mmol/L Anion Gap 4 (3-11) BUN 20 (6-23) mg/dl Creatinine 0.61 (0.6-1.2) mg/dl Est Cr Clr Drug Dosing 48.1 ml/min Est GFR ( Amer) 93.8 ml/min Est GFR (Non-Af Amer) 80.9 ml/min BUN/Creatinine Ratio 32.8 H (10-20) Glucose 94 (70-99(Fasting)) mg/dl Calcium 9.1 (8.6-10.3) mg/dl Phosphorus 3.0 (2.5-4.9) mg/dl Magnesium 2.0 (1.7-2.4) mg/dl Medications Administered Current Inpatient Medications Acetaminophen (Acetaminophen 325 Mg Tab) 650 mg PO Q4H PRN PRN Reason: Pain or Fever Stop: 02/27/23 22:09 Last Admin: 02/05/23 12:13 Dose: 650 mg Bisacodyl (Bisacodyl 10 Mg Supp) 10 mg MD DAILY PRN PRN Reason: Constipation Stop: 03/04/23 12:23 Cyanocobalamin (Cyanocobalamin (B-12) 100 Mcg Tablet) 200 mcg PO DAILY [facility] Stop: 02/28/23 08:59 Last Admin: 02/07/23 08:11 Dose: 200 mcg Docusate Sodium (Docusate Sodium 100 Mg Cap) 100 mg PO BID [facility] Stop: 03/04/23 12:29 Last Admin: 02/07/23 08:11 Dose: 100 mg Dorzolamide/Timolol (Dorzolamide/Timolol 22.3/6.8mg/Ml 10 Ml Btl) 1 drops OP BID [facility] Stop: 02/27/23 22:14 Last Admin: 02/07/23 08:11 Dose: 1 drops Enoxaparin Sodium (Enoxaparin Inj 30 Mg/0.3 Ml Syr) 30 mg SQ QAM [facility] Stop: 03/03/23 19:29 Last Admin: 02/02/23 08:46 Dose: 30 mg Ferrous Sulfate (Ferrous Sulfate 325 Mg Tab) 325 mg PO QAM [facility] Stop: 02/28/23 08:59 Last Admin: 02/07/23 08:09 Dose: 325 mg Furosemide (Furosemide Inj 20 Mg/2 Ml Vial) 20 mg IV [id number] [facility] Stop: 02/28/23 10:14 Last Admin: 02/01/23 07:58 Dose: 20 mg Furosemide (Furosemide 40 Mg Tab) 40 mg PO BID17 [facility] Stop: 03/06/23 16:59 Last Admin: 02/07/23 09:54 Dose: 40 mg Furosemide (Furosemide 20 Mg Tab) 20 mg PO TID [facility] Stop: 03/09/23 20:59 Promethazine HCl 6.25 mg/ (Sodium Chloride) 50.25 mls @ 201 mls/hr IV Q6H PRN PRN Reason: Nausea And Vomiting Stop: 02/27/23 22:09 Last Infusion: 01/29/23 17:38 Dose: Infused Ceftriaxone Sodium 1,000 mg/ (Dextrose) 50 mls @ 100 mls/hr IV Q24H [facility]; Protocol Stop: 02/08/23 20:29 Last Infusion: 02/06/23 22:29 Dose: Infused Lactobacillus Acidophilus (Advanced Probiotic 1250 Mg Capsule) 2 cap PO DAILY [facility] Stop: 03/03/23 19:59 Last Admin: 02/07/23 08:09 Dose: 2 cap Levothyroxine Sodium (Levothyroxine Sodium 100 Mcg Tablet) 100 mcg PO DAILYBB [facility] Stop: 02/28/23 06:29 Last Admin: 02/07/23 05:57 Dose: 100 mcg Linaclotide (Linaclotide 145 Mcg Capsule) 145 mcg PO DAILYBB [facility] Stop: 02/28/23 06:29 Last Admin: 02/07/23 05:57 Dose: 145 mcg Magnesium Oxide (Magnesium Oxide 400 Mg Tab) 400 mg PO BID [facility] Stop: 03/03/23 14:59 Last Admin: 02/02/23 08:45 Dose: 400 mg Multi-Ingredient Cream (Eucerin Cr 120 Gm Jar) 1 appln EXT BID PRN PRN Reason: Dryness Stop: 03/02/23 15:48 Mycophenolate Mofetil (Mycophenolate Mofetil 250 Mg Cap) 500 mg PO DAILY [facility] Stop: 02/28/23 08:59 Last Admin: 02/07/23 08:09 Dose: 500 mg Oxycodone HCl (Oxycodone Hcl Ir 5 Mg Tab (Immediate Release)) 5 mg PO Q4H PRN PRN Reason: Pain Stop: 02/11/23 22:09 Last Admin: 02/06/23 01:47 Dose: 5 mg Pantoprazole Sodium (Pantoprazole 40 Mg Tab) 40 mg PO DAILYBB [facility] Stop: 02/28/23 06:29 Last Admin: 02/07/23 05:57 Dose: 40 mg Prednisone (Prednisone 5 Mg Tab) 5 mg PO DAILY [facility] Stop: 02/28/23 08:59 Last Admin: 02/07/23 08:10 Dose: 5 mg
[2023-02-07] MEDS: FUROSEMIDE 20 MG TAB PO SCH (17:49)
[2023-02-07] MEDS: cefTRIAXone SODIUM 1,000 MG in DEXTROSE 5 % MINI-B 50 ML IV SCH (20:38)
[2023-02-07] MEDS: ACETAMINOPHEN 325 MG TAB PO PRN (21:47)
[2023-02-08] MEDS: LINACLOTIDE 145 MCG CAPSULE PO SCH (06:23)
[2023-02-08] MEDS: PANTOprazole 40 MG TAB PO SCH (06:23)
[2023-02-08] MEDS: LEVOTHYROXINE SODIUM 100 MCG TABLET PO SCH (06:23)
[2023-02-08 07:40] LABS: BUN Creatinine Ratio 28.8 (10-20); Calcium 9.3 mg/dl (8.6-10.3); Creatinine Clr Calc Pharmacy 44.5 ml/min; Est GFR (African American) 91.4 ml/min; Est GFR (Non-African American) 78.9 ml/min; Potassium 3.8 mmol/L (3.5-5.1)
[2023-02-08] MEDS: FERROUS SULFATE 325 MG TAB PO SCH (09:26)
[2023-02-08] MEDS: CYANOCOBALAMIN (B-12) 100 MCG TABLET PO SCH (09:26)
[2023-02-08] MEDS: DOCUSATE SODIUM 100 MG CAP PO SCH ×2 (09:27→20:04)
[2023-02-08] MEDS: predniSONE 5 MG TAB PO SCH (09:27)
[2023-02-08] MEDS: DORZOLAMIDE/TIMOLOL 22.3/6.8MG/ML 10 ML BTL OP SCH ×2 (09:27→20:04)
[2023-02-08] MEDS: MYCOPHENOLATE MOFETIL 250 MG CAP PO SCH (09:27)
[2023-02-08] MEDS: FUROSEMIDE 20 MG TAB PO SCH ×4 (09:27→16:53)
[2023-02-08] MEDS: ADVANCED PROBIOTIC 1250 MG CAPSULE PO SCH (09:27)
[2023-02-08] MEDS ORDERED: MAGNESIUM HYDROXIDE SUSP 30 ML UDC PO PRN (09:59)
--- NOTE | 2023-02-08 14:57 | Hospitalist Progress Note ---
Date of Service February 08, 2023 Assessment & Plan (1) Lymphedema: Plan: Chronic lymphedema Presented with worsening leg edema Suspected left leg cellulitis Chronic prednisone use likely contributing Immunocompromised patient (H/O chronic steroid Rx/CellCept Rx for pemphigoid) --ECHO: Mild concentric LVH. EF 60 to 65%. Aortic valve is trileaflet. Aortic valve leaflets are mildly calcified with mild restriction leaflet mobility minimal aortic stenosis, trace aortic insufficiency. Mild mitral annular calcification. Trace mitral and tricuspid regurgitation. Right ventricular systolic pressure 30-40mmHg -- Hypoalbuminemia likely contributing as well --Venous Doppler:There is no sonographic evidence of deep venous thrombosis identified in the right or left lower extremity. --LE X ray:No osteomyelitis --Blood Cultures: Negative -- IV Lasix transition to p.o. Lasix 20 mg 3 times daily --Completed 7-day course of doxycycline and ceftriaxone for possible cellulitis continue PT OT Hypomagnesemia Hypokalemia Replace electrolytes as needed LLQ pain - started on10/15 AM - pt reports having BM -abdomen soft, + bowel sounds - KUB obtained - negative - Pain has resolved Acute on chronic hyponatremia secondary to illness/possible right-sided heart failure/fluid retention Sodium level 133 monitor Demand ischemia No significant elevation of troponin Monitor Underweight with BMI 19.1 Other chronic conditions: Valvular 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, TTE 2020) H/O ovarian cancer status post surgery/chemotherapy chronic thrombocytopenia secondary to myeloproliferative neoplasm, intolerant of prior outpatient treatments, patient declines further care as per outpatient [facility] Hematology note from 3 months ago chronic anemia (baseline hemoglobin 8-9), hemoglobin at baseline Monitor CBC Primary hyperparathyroidism, failed attempts to see Endocrinology outpatient as per records Postsurgical hypothyroidism, euthyroid H/O chronic LE DVT, not on anticoagulation secondary to bleeding risk Skin cancer as per records Recurrent admissions, functional disability Past tobacco abuse Case management to help with discharge planning DVT Px: SCDs Re: Thrombocytopenia Code Status DNR/DNI Disposition Lives at home Rehab as able Admission and Anticipated Discharge Date Admission Date: January 28, 2023 Subjective Patient is seen and examined at bedside States having generalized weakness Leg edema improving Denies any chest pain, dyspnea, nausea, vomiting, abdominal pain No other complaints Review of Systems Review of Systems: All systems reviewed & are unremarkable except as noted in Subjective Physical Exam Physical Exam: Physical Exam: Vitals signs as noted above General Appearance:Thin, frail, Elderly, no apparent distress Head: normocephalic, Atraumatic Eyes: normal inspection, EOMI Neck: supple, Trachea midline Respiratory/Chest: Normal breath sounds, CTA, No accessory muscle use Cardiovascular: S1, S2, No murmur Abdomen/GI:Soft, Non tender, Bowel sounds present Extremities/Musculoskeletal:normal inspection, B/L LE edema Neurologic/Psych:AAOX2, grossly no focal neurological deficits , Decreased hearing Skin: normal color, warm Results & Data Results & Data Vital Signs (Past 12 Hours) Vital Signs Temp Pulse Pulse Resp BP BP Pulse Ox 02/08/23 11:43 36.8 C 75 17 131/63 90 02/08/23 07:57 37.4 C 84 17 124/50 L 91 02/08/23 03:28 36.8 C 69 18 114/75 97 O2 Del Method 02/08/23 11:43 Room Air 02/08/23 07:57 Room Air 02/08/23 03:28 Room Air Laboratory Results [facility] 02/08/23 07:00 Sodium 133 L Potassium 3.8 Chloride 98 Carbon Dioxide 31 BUN 19 Creatinine 0.66 Glucose 94 Calcium 9.3
[2023-02-08] MEDS: ACETAMINOPHEN 325 MG TAB PO PRN (16:53)
[2023-02-09] MEDS: LEVOTHYROXINE SODIUM 100 MCG TABLET PO SCH (05:38)
[2023-02-09] MEDS: PANTOprazole 40 MG TAB PO SCH (05:39)
[2023-02-09] MEDS: LINACLOTIDE 145 MCG CAPSULE PO SCH (05:39)
[2023-02-09] MEDS: MYCOPHENOLATE MOFETIL 250 MG CAP PO SCH (07:24)
[2023-02-09] MEDS: predniSONE 5 MG TAB PO SCH (07:24)
[2023-02-09] MEDS: FERROUS SULFATE 325 MG TAB PO SCH (07:24)
[2023-02-09] MEDS: oxyCODONE HCL IR 5 MG TAB (IMMEDIATE RELEASE) PO PRN (07:24)
[2023-02-09] MEDS: ADVANCED PROBIOTIC 1250 MG CAPSULE PO SCH (07:25)
[2023-02-09] MEDS: DORZOLAMIDE/TIMOLOL 22.3/6.8MG/ML 10 ML BTL OP SCH ×2 (07:25→21:38)
[2023-02-09] MEDS: DOCUSATE SODIUM 100 MG CAP PO SCH ×2 (07:25→21:39)
[2023-02-09] MEDS: CYANOCOBALAMIN (B-12) 100 MCG TABLET PO SCH (07:25)
[2023-02-09] MEDS: FUROSEMIDE 20 MG TAB PO SCH ×3 (07:25→17:10)
[2023-02-09 08:40] LABS: Calcium 8.9 mg/dl (8.6-10.3); Creatinine Clr Calc Pharmacy 48.9 ml/min; Est GFR (African American) 94.3 ml/min; Est GFR (Non-African American) 81.4 ml/min; Potassium 3.3 mmol/L (3.5-5.1)
[2023-02-09 08:47] LABS: Hematocrit (blood only) 25.8 % (37.0-47.0); Hemoglobin 8.7 g/dl (12.0-16.0); Mean Corpuscular Hemoglobin 38.5 pg (25.0-34.0); Mean Corpuscular Hgb Conc 33.7 g/dL (32.0-36.0); Mean Corpuscular Volume 114.2 fL (80.0-100.0); Nucleated RBC # (auto) 0.15 K/uL (0.00-0.12); Nucleated RBC % (auto) 0.7 %; Platelet Count 71 K/uL (130-400); RDW Coefficient of Variation 26.3 % (11.5-14.5); RDW Standard Deviation 108.1 fL (36.4-46.3); Red Blood Count 2.26 M/uL (4.20-5.40); White Blood Count 21.97 K/ul (4.8-10.8)
[2023-02-09] MEDS: POLYETHYLENE (MIRALAX) 17 GM PACK PO SCH (10:48)
[2023-02-09] MEDS: POTASSIUM CHLORIDE CRTAB 20 MEQ TABCR PO SCH (10:48)
[2023-02-09] MEDS: ALUMINUM/MAGNESIUM SUSP 30 ML UDC PO PRN (11:09)
[2023-02-09] MEDS: ACETAMINOPHEN 325 MG TAB PO PRN (11:13)
--- NOTE | 2023-02-09 12:41 | XRay Report ---
KUB HISTORY: indigestion, belching, substernal pain COMPARISON: KUB 02/05/2023. FINDINGS: No diagnosis of bowel to suggest an obstruction. Moderate fecal retention again noted. This is similar to the prior study. No renal calculi. No ureteral calculi. Calcifications in the deep pe lvis likely represent phleboliths. No pneumoperitoneum or pneumatosis. Prior cholecystectomy. IMPRESSION: 1. Nonobstructive bowel gas pattern. 2. Moderate fecal retention, unchanged. ACT 112: Negative or not required by law. Electronically signed by: Te Ham M.D. 02/09/2023 12:39 PM
--- NOTE | 2023-02-09 17:04 | Hospitalist Progress Note ---
Date of Service February 09, 2023 Assessment & Plan (1) Lymphedema: Plan: Chronic lymphedema Presented with worsening leg edema Suspected left leg cellulitis Chronic prednisone use likely contributing Immunocompromised patient (H/O chronic steroid Rx/CellCept Rx for pemphigoid) --ECHO: Mild concentric LVH. EF 60 to 65%. Aortic valve is trileaflet. Aortic valve leaflets are mildly calcified with mild restriction leaflet mobility minimal aortic stenosis, trace aortic insufficiency. Mild mitral annular calcification. Trace mitral and tricuspid regurgitation. Right ventricular systolic pressure 30-40mmHg -- Hypoalbuminemia likely contributing as well --Venous Doppler:There is no sonographic evidence of deep venous thrombosis identified in the right or left lower extremity. --LE X ray:No osteomyelitis --Blood Cultures: Negative -- IV Lasix transition to p.o. Lasix 20 mg 3 times daily --Completed 7-day course of doxycycline and ceftriaxone for possible cellulitis continue PT OT Plan to discharge to rehab as able Hypomagnesemia Hypokalemia Replace electrolytes as needed LLQ pain likely due to constipation -abdomen soft, + bowel sounds KUB suggestive of moderate fecal retention On Linzess at home Continue bowel regimen Acute on chronic hyponatremia secondary to illness/possible right-sided heart failure/fluid retention Sodium level 132 monitor Demand ischemia No significant elevation of troponin Monitor Underweight with BMI 19.1 Other chronic conditions: Valvular 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, TTE 2020) H/O ovarian cancer status post surgery/chemotherapy chronic thrombocytopenia secondary to myeloproliferative neoplasm, intolerant of prior outpatient treatments, patient declines further care as per outpatient [facility] Hematology note from 3 months ago chronic anemia (baseline hemoglobin 8-9), hemoglobin at baseline Monitor CBC Leukocytosis secondary to myeloproliferative neoplasm Primary hyperparathyroidism, failed attempts to see Endocrinology outpatient as per records Postsurgical hypothyroidism, euthyroid H/O chronic LE DVT, not on anticoagulation secondary to bleeding risk Skin cancer as per records Recurrent admissions, functional disability Past tobacco abuse Case management to help with discharge planning DVT Px: SCDs Re: Thrombocytopenia Code Status DNR/DNI Disposition Lives at home Rehab as able Admission and Anticipated Discharge Date Admission Date: January 28, 2023 Subjective Patient is seen and examined at bedside States having generalized weakness Still has constipation Discussed with patient's daughter at bedside Denies any chest pain, dyspnea, nausea, vomiting, abdominal pain KUB today showed moderate fecal retention Review of Systems Review of Systems: All systems reviewed & are unremarkable except as noted in Subjective Physical Exam Physical Exam: Physical Exam: Vitals signs as noted above General Appearance:Thin, frail, Elderly, no apparent distress Head: normocephalic, Atraumatic Eyes: normal inspection, EOMI Neck: supple, Trachea midline Respiratory/Chest: Normal breath sounds, CTA, No accessory muscle use Cardiovascular: S1, S2, No murmur Abdomen/GI:Soft, Non tender, Bowel sounds present Extremities/Musculoskeletal:normal inspection, B/L LE edema Neurologic/Psych:AAOX2, grossly no focal neurological deficits , Decreased hearing Skin: normal color, warm Results & Data Results & Data Vital Signs (Past 12 Hours) Vital Signs Temp Pulse Pulse Resp BP Pulse Ox O2 Del Method 02/09/23 15:52 90 02/09/23 15:31 37.2 C 85 17 94/50 L 97 Nasal Cannula 02/09/23 11:28 37.0 C 76 17 105/59 L 99 Room Air 02/09/23 07:54 37.4 C 80 17 105/61 97 Nasal Cannula 02/09/23 07:54 80 02/09/23 07:38 Nasal Cannula O2 Flow Rate 02/09/23 15:52 02/09/23 15:31 2 02/09/23 11:28 02/09/23 07:54 2 02/09/23 07:54 02/09/23 07:38 2 Laboratory Results Short CBC 02/09/23 Range/Units 07:36 WBC 21.97 H (4.8-10.8) K/ul Hgb 8.7 L (12.0-16.0) g/dl Hct 25.8 L (37.0-47.0) % Plt Count 71 L (130-400) K/uL BMP 02/09/23 07:36 Sodium 132 L Potassium 3.3 L Chloride 97 L Carbon Dioxide 30 BUN 18 Creatinine 0.60 Glucose 90 Calcium 8.9
[2023-02-09] MEDS: SENNA 8.6 MG TAB PO SCH (21:38)
[2023-02-10] MEDS: LINACLOTIDE 145 MCG CAPSULE PO SCH (05:56)
[2023-02-10] MEDS: LEVOTHYROXINE SODIUM 100 MCG TABLET PO SCH (05:57)
[2023-02-10] MEDS: PANTOprazole 40 MG TAB PO SCH (05:57)
[2023-02-10] MEDS: FUROSEMIDE 20 MG TAB PO SCH ×3 (06:05→19:29)
[2023-02-10 08:30] LABS: BUN Creatinine Ratio 32.3 (10-20); Calcium 8.9 mg/dl (8.6-10.3); Creatinine Clr Calc Pharmacy 46.5 ml/min; Est GFR (African American) 93.3 ml/min; Est GFR (Non-African American) 80.5 ml/min; Potassium 3.9 mmol/L (3.5-5.1)
[2023-02-10] MEDS: MYCOPHENOLATE MOFETIL 250 MG CAP PO SCH (08:53)
[2023-02-10] MEDS: POTASSIUM CHLORIDE CRTAB 20 MEQ TABCR PO SCH (08:53)
[2023-02-10] MEDS: CYANOCOBALAMIN (B-12) 100 MCG TABLET PO SCH (08:53)
[2023-02-10] MEDS: DOCUSATE SODIUM 100 MG CAP PO SCH ×2 (08:53→19:28)
[2023-02-10] MEDS: predniSONE 5 MG TAB PO SCH (08:53)
[2023-02-10] MEDS: ADVANCED PROBIOTIC 1250 MG CAPSULE PO SCH (08:53)
[2023-02-10] MEDS: FERROUS SULFATE 325 MG TAB PO SCH (08:53)
[2023-02-10] MEDS: POLYETHYLENE (MIRALAX) 17 GM PACK PO SCH (08:53)
[2023-02-10] MEDS: DORZOLAMIDE/TIMOLOL 22.3/6.8MG/ML 10 ML BTL OP SCH ×2 (08:53→19:28)
[2023-02-10] MEDS ORDERED: NITROGLYCERIN SL 0.4 MG/TAB TAB SL PRN (09:37)
[2023-02-10 11:08] LABS: Troponin I High Sensitivity 10.6 pg/ml (0-14)
--- NOTE | 2023-02-10 11:15 | XRay Report ---
XR chest 1V portable HISTORY: chest pain COMPARISON: Chest 02/03/2023. FINDINGS: No pneumothorax. The cardiac silhouette remains mildly enlarged. Mild interstitial pulmonar y edema and small bilateral pleural effusions persist. Patchy bibasilar densities have slightly progr essed. There are calcifications within the aortic knob. Prior cholecystectomy. IMPRESSION: 1. Mild interstitial pulmonary edema and small bilateral pleural effusions again noted. 2. Patchy bibasilar densities have slightly progressed. This favors atelectasis. A superimposed pneum onia would be difficult to exclude. ACT 112: Negative or not required by law. Electronically signed by: Te Ham M.D. 02/10/2023 11:14 AM
--- NOTE | 2023-02-10 13:05 | Cardiology Consultation ---
Date of Consultation February 10, 2023 Assessment & Plan (1) Chest pain: (2) GERD (gastroesophageal reflux disease): (3) Pleural effusion: Plan Patient had episode of left sided chest pain this morning, resolving with 1 SL nitro, in setting of severe eructation. Chest pain now resolved. Eructation continues. She has a long history of GI issues with GERD and constipation on multiple therapies. She denies history of cardiovascular issues. EKG was without acute ischemic changes. HS troponin negative x1. Repeat pending. Echocardiogram earlier this admission was with preserved LVEF. Based on her presentation/symptoms, and test findings (pending repeat troponin), it is unlikely her chest pain is cardiac in nature. She has multiple medical issues including significant anemia/thrombocytopenia with her myelodysplastic disease. She is not a candidate for antiplatelet therapy with ASA. BP has been marginal during admission and well controlled. Would not recommend initiation of any antihypertensive or antianginal therapy. Per review of chest xray, she does have small b/l pleural effusions. She has been tolerating furosemide on a daily basis here totalling 60 mg daily. However, she does have a history of hyponatremia. Does not appear she takes diuretics as an outpatient. Would recommend furosemide 40 mg daily on discharge with potassium 10 meq and f/u with BMP in 3-5 days. Will await repeat troponin, but as long as it is WNL, would not recommend fur ther cardiac testing at this time. Recommend continuing GI therapies. Case discussed with Dr. Mckeon I spent a total of 60 minutes on the date of service in preparation, delivery, and documentation of the care provided to this patient, excluding any time spent in the performance of separately billed services. Lucy Saavedra PA-C Department of Cardiology, [facility] This chart was completed in part utilizing Speech Voice Recognition Software. Grammatical errors, random word insertions, pronoun errors, and incomplete sentences are an occasional consequence of this system due to software limitations, ambient noise, and hardware issues. Any formal questions or concerns about the content, text, or information contained within the body of this dictation should be directly addressed to the provider for clarification. Supervising Physician Co-Signing Physician Notes Supervising Physician Attestation: I have personally performed a history and physical examination on the patient. I agree with the physician chiropractic assistant's findings and plan as documented with the following additions. Subjective: Patient without chest discomfort at the time of my assessment, complaints of recent frequent belching which has since subsided. Has been belching since yesterday. Exam: Cardiovascular: Regular, 1/6 systolic murmur, no edema Pulmonary: Mildly decreased breath sounds at the bases Data: EKG performed today with sinus rhythm, no significant repolarization changes to suggest ischemia High-sensitivity troponin negative x2 Echocardiogram with no regional wall motion abnormalities Assessment and Plan: Symptoms of dyspepsia, that do not sound characteristic of angina -- Given thrombocytopenia, would not administer aspirin. -- Continue Pepcid, Protonix, furosemide. Dr Meredith alba on 02/12/23. Call with questions or concerns. Shaun Mckeon, DO History of Present Illness Reason for Consultation: Chest pain Requesting Physician: Dr. Hayes Attending Physician: Dr. Mckeon History of Present Illness Patient is an 88-year-old female admitted to [facility] approximately 13 days ago with worsening LE edema, possible cellulitis, sepsis. Treated with diuretics and antibiotics. Blood cultures negative. Echocardiogram with preserved LVEF, no significant valvular heart disease, and mildly elevated pulm pressures. She denies cardiac history of RI, CHF, CAD, valvular disease, arrhythmias. Earlier this morning patient developed left sided chest pain described as a tightness associated with significant eructation. EKG at the time demonstrated NSR wiht PVC's. no acute ischemic changes. HS troponin normal this morning at time of event. Cardiology was consulted. She has also been noted ot have mild pulmonary congestion on chest xray with small b/l pleural effusions. she has been treated with furosemide 60 mg daily At time of consult, patient resting in bed comfortably. Her primary concern is ongoing eructation causing significant discomfort in the epigastric region and chest. She reports this was occurring this morning at time of chest pain. No radiation of the discomfort. No worsening SOB. Edema improved from admission, per patient. other history includes: 1. Myeloproliferative disease with chronic anemia 2. chronic thrombocytopenia 3. 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 Chronic hyponatremia 5. Hyperthyroidism 6. history of ovarian cancer s/p chemo and surgery 7. Chronic Lymphedema 8. Pulm hypertension Allergies Allergy/AdvReac Type Severity Reaction Status Date / Time naproxen Allergy Mild RASH Verified 12/25/22 16:45 niacin Allergy Mild RASH Verified 12/25/22 16:45 Home Medications Medication Instructions Recorded Confirmed Type dorzolamide 2 %-timolol 0.5 % (PF) 1 drp OPB BID 05/24/19 01/28/23 History eye drops mycophenolate mofetil 500 mg tablet 500 mg PO DAILY 10/29/20 01/28/23 History omeprazole 20 mg capsule,delayed 20 mg PO DAILYBB 10/29/20 01/28/23 History release prednisone 10 mg tablet 5 - 10 mg PO QAM 01/24/21 01/28/23 History cyanocobalamin (vitamin B-12) 100 200 mcg PO DAILY 06/22/21 01/28/23 History mcg tablet ferrous sulfate 325 mg (65 mg 325 mg PO QAM 06/22/21 01/28/23 History iron) tablet (FeroSul) acetaminophen 500 mg tablet 1,000 mg PO Q6H PRN Pain 09/19/22 01/28/23 History (Tylenol Extra Strength) cholecalciferol (vitamin D3) 25 25 mcg PO DAILY 09/19/22 01/28/23 History mcg (1,000 unit) tablet (Vitamin D3) levothyroxine 100 mcg tablet 100 mcg PO DAILYBB 12/25/22 01/28/23 History dexamethasone 0.5 mg/5 mL oral 0.5 mg PO BID PRN mouth ulcers 01/28/23 01/28/23 History elixir linaclotide 145 mcg capsule 145 mcg PO DAILYBB 01/28/23 01/28/23 History (Linzess) Patient History Medical History Chronic use of steroids Glaucoma Hiatal hernia Hyperlipidemia Diet controlled Hyperparathyroidism 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 Zhou in [place] (oncologist) Thrombocytopenia Surgical History History of bowel resection FOR PERFORATION WITH COLOSTOMY History of cholecystectomy History of colonoscopy History of colostomy reversal History of hysterectomy TOTAL History of lithotripsy Hx of bilateral cataract extraction Hx of cystoscopy Previous back surgery LOWER BACK-NO METAL IMPLANTED S/P debridement OF STOMA SITE S/P thyroidectomy FOR GOITER Family History Father CHF (congestive heart failure) Mother Hypertension Social History Smoking Status: Never smoker Tobacco Type: Cigarettes Second Hand Exposure: No; Do You Dip or Chew Tobacco: No; Tobacco Cessation Education Requested by Patient: No Hx Alcohol Use: No Hx Substance Use: No Preferred Language: Chinese Communication Ability: Effective Account Engineer Required: No Beliefs That Will Affect Care: None marital status: / Current Living Situation: Other Current Living Situation Comment: snf apartment How many Children do You have: 2 Other Information That Helps Us Care for You: No Feels Safe at Home: Yes Safety Concerns: Feels Safe At This Time Assistive Devices: Hearing Aid - Bilateral, Walker and Wheelchair Review of Systems Review of Systems: All systems reviewed & are unremarkable except as noted in HPI & below Physical Exam Constitutional: WD/WN, vitals as above Neck: normal visual inspection Respiratory: normal respiratory effort Auscultation: + diminished lung sounds (bases b/l ) Cardiovascular: Rate/Rhythm: regular rate and regular rhythm Heart Sounds: + murmur (I/ systolic murmur LSB) Vessels: no JVD Extremities: + edema (trace pretibial edema b/l ) Gastrointestinal (Abdomen): normal bowel sounds, soft, nontender, no hepatosplenomegaly Neurologic: PERRL, EOMI, accommodation nl, no face palsy, no dysarthria Results & Data Vital Signs (Past 12 Hours) Vital Signs Temp Pulse Pulse Pulse Resp BP Pulse Ox 02/10/23 12:03 37.7 C H 80 16 130/62 99 02/10/23 08:50 02/10/23 10:09 37.0 C 78 16 106/61 98 02/10/23 08:13 36.8 C 80 16 123/66 99 02/10/23 07:44 85 02/10/23 06:03 79 121/47 L 97 02/10/23 05:48 83 02/10/23 03:33 36.8 C 83 16 129/53 L 100 O2 Del Method O2 Flow Rate 02/10/23 12:03 Nasal Cannula 2 02/10/23 08:50 Nasal Cannula 2 02/10/23 10:09 Room Air 02/10/23 08:13 Nasal Cannula 2 02/10/23 07:44 02/10/23 06:03 Room Air 02/10/23 05:48 02/10/23 03:33 Nasal Cannula 3 Laboratory Results Cardiac Enzymes 02/10/23 Range/Units 07:15 Troponin I High Sens 10.6 (0-14) pg/ml Comprehensive Metabolic Panel 02/10/23 Range/Units 07:15 Sodium 134 L (136-145) mmol/L Potassium 3.9 (3.5-5.1) mmol/L Chloride 98 (98-107) mmol/L Carbon Dioxide 30 (21-32) mmol/L BUN 20 (6-23) mg/dl Creatinine 0.62 (0.6-1.2) mg/dl Glucose 85 (70-99(Fasting)) mg/dl Calcium 8.9 (8.6-10.3) mg/dl Intake and Output 02/09/23 02/10/23 02/10/23 22:59 06:59 14:59 Intake Total 360 / 360 Balance 360 / 160 Intake: Oral 360 / 360 Other: # Unmeasured Voids 2 Weight 47 kg Weight Measurement Method Built in [facility] Diagnostic Findings EKG reviewed from this morning 02/10/23 at time of chest pain: NSR with PVC possible old anterior infarct, possible old inferior infarct No acute changes noted. Echo report reviewed dated 01/29/2023 completed at [facility]: LV is normal in size. LV wall motion is normal. Mild concentric LVH. Ejection fraction 60 to 65%. Aortic valve leaflets are mildly calcified with mild restriction with minimal aortic stenosis and trace AI. Mild mitral annular calcification. RV sysIMPRESSION: Chest xray report reviewed from today 02/10/23: : 1. Mild interstitial pulmonary edema and small bilateral pleural effusions again noted. 2. Patchy bibasilar densities have slightly progressed. This favors atelectasis. A superimposed pneumonia would be difficult to exclude. Medications Administered Current Inpatient Medications Acetaminophen (Acetaminophen 325 Mg Tab) 650 mg PO Q4H PRN PRN Reason: Pain or Fever Stop: 02/27/23 22:09 Last Admin: 02/09/23 11:13 Dose: 650 mg Al Hydrox/Mg Hydrox/Simethicone (Aluminum/Magnesium Susp 30 Ml Udc) 30 ml PO Q6H PRN PRN Reason: Dyspepsia Stop: 03/10/23 17:30 Last Admin: 02/09/23 11:09 Dose: 30 ml Bisacodyl (Bisacodyl 10 Mg Supp) 10 mg TN DAILY PRN PRN Reason: Constipation Stop: 03/04/23 12:23 Cyanocobalamin (Cyanocobalamin (B-12) 100 Mcg Tablet) 200 mcg PO DAILY ALEX[facility]RE Stop: 02/28/23 08:59 Last Admin: 02/10/23 08:53 Dose: 200 mcg Docusate Sodium (Docusate Sodium 100 Mg Cap) 100 mg PO BID ALEXANDRE Stop: 03/04/23 12:29 Last Admin: 02/10/23 08:53 Dose: 100 mg Dorzolamide/Timolol (Dorzolamide/Timolol 22.3/6.8mg/Ml 10 Ml Btl) 1 drops OP BID [facility] Stop: 02/27/23 22:14 Last Admin: 02/10/23 08:53 Dose: 1 drops Enoxaparin Sodium (Enoxaparin Inj 30 Mg/0.3 Ml Syr) 30 mg SQ QAM [facility] Stop: 03/03/23 19:29 Last Admin: 02/02/23 08:46 Dose: 30 mg Ferrous Sulfate (Ferrous Sulfate 325 Mg Tab) 325 mg PO QAM [facility] Stop: 02/28/23 08:59 Last Admin: 02/10/23 08:53 Dose: 325 mg Furosemide (Furosemide 20 Mg Tab) 20 mg PO TID@0700,1200,1700 [facility] Stop: 03/09/23 16:59 Last Admin: 02/10/23 06:05 Dose: Not Given Promethazine HCl 6.25 mg/ (Sodium Chloride) 50.25 mls @ 201 mls/hr IV Q6H PRN PRN Reason: Nausea And Vomiting Stop: 02/27/23 22:09 Last Infusion: 01/29/23 17:38 Dose: Infused Lactobacillus Acidophilus (Advanced Probiotic 1250 Mg Capsule) 2 cap PO DAILY [facility] Stop: 03/03/23 19:59 Last Admin: 02/10/23 08:53 Dose: 2 cap Levothyroxine Sodium (Levothyroxine Sodium 100 Mcg Tablet) 100 mcg PO DAILYBB [facility] Stop: 02/28/23 06:29 Last Admin: 02/10/23 05:57 Dose: 100 mcg Linaclotide (Linaclotide 145 Mcg Capsule) 145 mcg PO DAILYBB [facility] Stop: 02/28/23 06:29 Last Admin: 02/10/23 05:56 Dose: 145 mcg Magnesium Hydroxide (Magnesium Hydroxide Susp 30 Ml Udc) 30 ml PO BID PRN PRN Reason: Constipation Stop: 03/10/23 09:58 Multi-Ingredient Cream (Eucerin Cr 120 Gm Jar) 1 appln EXT BID PRN PRN Reason: Dryness Stop: 03/02/23 15:48 Mycophenolate Mofetil (Mycophenolate Mofetil 250 Mg Cap) 500 mg PO DAILY [facility]RE Stop: 02/28/23 08:59 Last Admin: 02/10/23 08:53 Dose: 500 mg Nitroglycerin (Nitroglycerin Sl 0.4 Mg/Tab Tab) 0.4 mg SL Q5M PRN PRN Reason: Chest Pain Stop: 03/12/23 09:36 Last Admin: 02/10/23 10:11 Dose: 0.4 mg Oxycodone HCl (Oxycodone Hcl Ir 5 Mg Tab (Immediate Release)) 5 mg PO Q4H PRN PRN Reason: Pain Stop: 02/11/23 22:09 Last Admin: 02/09/23 07:24 Dose: 5 mg Pantoprazole Sodium (Pantoprazole 40 Mg Tab) 40 mg PO DAILYBB [facility] Stop: 02/28/23 06:29 Last Admin: 02/10/23 05:57 Dose: 40 mg Polyethylene Glycol (Polyethylene (Miralax) 17 Gm Pack) 17 gm PO DAILY [facility]RE Stop: 03/11/23 08:59 Last Admin: 02/10/23 08:53 Dose: 17 gm Potassium Chloride (Potassium Chloride Crtab 20 Meq Tabcr) 40 meq PO DAILY [facility]RE Stop: 03/11/23 09:24 Last Admin: 02/10/23 08:53 Dose: 40 meq Prednisone (Prednisone 5 Mg Tab) 5 mg PO DAILY [facility]RE Stop: 02/28/23 08:59 Last Admin: 02/10/23 08:53 Dose: 5 mg Sennosides (Senna 8.6 Mg Tab) 8.6 mg PO HS ALEXANDRE Stop: 03/11/23 20:59 Last Admin: 02/09/23 21:38 Dose: 8.6 mg (1) Chest pain Chest pain type: unspecified Qualified Code(s): R07.9 - Chest pain, unspecified (2) GERD (gastroesophageal reflux disease) Esophagitis presence: esophagitis presence not specified Qualified Code(s): K21.9 - Gastro-esophageal reflux disease without esophagitis
--- NOTE | 2023-02-10 15:16 | Hospitalist Progress Note ---
Date of Service February 10, 2023 Assessment & Plan (1) Lymphedema: Plan: Chronic lymphedema Presented with worsening leg edema Suspected left leg cellulitis Chronic prednisone use likely contributing Immunocompromised patient (H/O chronic steroid Rx/CellCept Rx for pemphigoid) --ECHO: Mild concentric LVH. EF 60 to 65%. Aortic valve is trileaflet. Aortic valve leaflets are mildly calcified with mild restriction leaflet mobility minimal aortic stenosis, trace aortic insufficiency. Mild mitral annular calcification. Trace mitral and tricuspid regurgitation. Right ventricular systolic pressure 30-40mmHg -- Hypoalbuminemia likely contributing as well --Venous Doppler:There is no sonographic evidence of deep venous thrombosis identified in the right or left lower extremity. --LE X ray:No osteomyelitis --Blood Cultures: Negative -- IV Lasix transition to p.o. Lasix 20 mg 2 times daily --Completed 7-day course of doxycycline and ceftriaxone for possible cellulitis continue PT OT Plan to discharge to rehab likely tomorrow Atypical chest pain Likely due to GERD Echo showed no wall motion abnormality Troponin negative Appreciate cardiology input Hypomagnesemia Hypokalemia Replace electrolytes as needed LLQ pain likely due to constipation -abdomen soft, + bowel sounds KUB suggestive of moderate fecal retention On Linzess at home Continue bowel regimen Acute on chronic hyponatremia secondary to illness/possible right-sided heart failure/fluid retention Sodium level 134 monitor Demand ischemia No significant elevation of troponin Monitor Underweight with BMI 19.1 Other chronic conditions: Valvular 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, TTE 2020) H/O ovarian cancer status post surgery/chemotherapy chronic thrombocytopenia secondary to myeloproliferative neoplasm, intolerant of prior outpatient treatments, patient declines further care as per outpatient [facility] Hematology note from 3 months ago chronic anemia (baseline hemoglobin 8-9), hemoglobin at baseline Monitor CBC Leukocytosis secondary to myeloproliferative neoplasm Primary hyperparathyroidism, failed attempts to see Endocrinology outpatient as per records Postsurgical hypothyroidism, euthyroid H/O chronic LE DVT, not on anticoagulation secondary to bleeding risk Skin cancer as per records Recurrent admissions, functional disability Past tobacco abuse Case management to help with discharge planning DVT Px: SCDs Re: Thrombocytopenia Code Status DNR/DNI Disposition Lives at home Rehab as able Admission and Anticipated Discharge Date Admission Date: January 28, 2023 Subjective Patient is seen and examined at bedside Reported transient chest pain this morning Discussed with cardiology today Had bowel movement overnight Discussed with patient's daughter at bedside + Belching Denies any dyspnea, nausea, vomiting, abdominal pain, dizziness Review of Systems Review of Systems: All systems reviewed & are unremarkable except as noted in Subjective Physical Exam Physical Exam: Physical Exam: Vitals signs as noted above General Appearance:Thin, frail, Elderly, no apparent distress Head: normocephalic, Atraumatic Eyes: normal inspection, EOMI Neck: supple, Trachea midline Respiratory/Chest: Normal breath sounds, CTA, No accessory muscle use Cardiovascular: S1, S2, No murmur Abdomen/GI:Soft, Non tender, Bowel sounds present Extremities/Musculoskeletal:normal inspection, B/L LE edema improved Neurologic/Psych:AAOX2, grossly no focal neurological deficits , Decreased hearing Skin: normal color, warm Results & Data Results & Data Vital Signs (Past 12 Hours) Vital Signs Temp Pulse Pulse Pulse Resp BP Pulse Ox 02/10/23 12:03 37.7 C H 80 16 130/62 99 02/10/23 08:50 02/10/23 10:09 37.0 C 78 16 106/61 98 02/10/23 08:13 36.8 C 80 16 123/66 99 02/10/23 07:44 85 02/10/23 06:03 79 121/47 L 97 02/10/23 05:48 83 02/10/23 03:33 36.8 C 83 16 129/53 L 100 O2 Del Method O2 Flow Rate 02/10/23 12:03 Nasal Cannula 2 02/10/23 08:50 Nasal Cannula 2 02/10/23 10:09 Room Air 02/10/23 08:13 Nasal Cannula 2 02/10/23 07:44 02/10/23 06:03 Room Air 02/10/23 05:48 02/10/23 03:33 Nasal Cannula 3 Laboratory Results BMP 02/10/23 07:15 Sodium 134 L Potassium 3.9 Chloride 98 Carbon Dioxide 30 BUN 20 Creatinine 0.62 Glucose 85 Calcium 8.9
[2023-02-10] MEDS: FAMOTIDINE 10 MG TABLET PO SCH ×2 (15:51→19:27)
[2023-02-10] MEDS: SENNA 8.6 MG TAB PO SCH (19:27)
[2023-02-10] MEDS: ALUMINUM/MAGNESIUM SUSP 30 ML UDC PO PRN (19:27)
[2023-02-10] MEDS: oxyCODONE HCL IR 5 MG TAB (IMMEDIATE RELEASE) PO PRN (20:14)
[2023-02-11] MEDS: oxyCODONE HCL IR 5 MG TAB (IMMEDIATE RELEASE) PO PRN (03:37)
[2023-02-11] MEDS: PANTOprazole 40 MG TAB PO SCH (06:26)
[2023-02-11] MEDS: LINACLOTIDE 145 MCG CAPSULE PO SCH (06:26)
[2023-02-11] MEDS: LEVOTHYROXINE SODIUM 100 MCG TABLET PO SCH (06:26)
[2023-02-11 06:45] LABS: Hematocrit (blood only) 26.8 % (37.0-47.0); Hemoglobin 8.8 g/dl (12.0-16.0); Mean Corpuscular Hemoglobin 38.3 pg (25.0-34.0); Mean Corpuscular Hgb Conc 32.8 g/dL (32.0-36.0); Mean Corpuscular Volume 116.5 fL (80.0-100.0); Mean Platelet Volume 10.5 fL (9.4-12.4); Nucleated RBC # (auto) 0.12 K/uL (0.00-0.12); Nucleated RBC % (auto) 0.6 %; Platelet Count 82 K/uL (130-400); RDW Coefficient of Variation 26.5 % (11.5-14.5); RDW Standard Deviation 109.7 fL (36.4-46.3); White Blood Count 21.35 K/ul (4.8-10.8)
[2023-02-11 07:30] LABS: BUN Creatinine Ratio 31.5 (10-20); Calcium 9.4 mg/dl (8.6-10.3); Creatinine Clr Calc Pharmacy 37.8 ml/min; Est GFR (African American) 85.2 ml/min; Est GFR (Non-African American) 73.5 ml/min; Potassium 4.3 mmol/L (3.5-5.1)
[2023-02-11] MEDS ORDERED: POTASSIUM CHLORIDE CRTAB 20 MEQ TABCR PO SCH (09:00)
[2023-02-11] MEDS: FAMOTIDINE 10 MG TABLET PO SCH (09:06)
[2023-02-11] MEDS: POLYETHYLENE (MIRALAX) 17 GM PACK PO SCH (09:11)
[2023-02-11] MEDS: ALUMINUM/MAGNESIUM SUSP 30 ML UDC PO PRN (09:11)
[2023-02-11] MEDS: DORZOLAMIDE/TIMOLOL 22.3/6.8MG/ML 10 ML BTL OP SCH (10:22)
[2023-02-11] MEDS: MYCOPHENOLATE MOFETIL 250 MG CAP PO SCH (10:22)
[2023-02-11] MEDS: predniSONE 5 MG TAB PO SCH (10:22)
[2023-02-11] MEDS: FUROSEMIDE 20 MG TAB PO SCH (10:22)
[2023-02-11] MEDS: ADVANCED PROBIOTIC 1250 MG CAPSULE PO SCH (10:22)
[2023-02-11] MEDS: CYANOCOBALAMIN (B-12) 100 MCG TABLET PO SCH (10:23)
[2023-02-11] MEDS: FERROUS SULFATE 325 MG TAB PO SCH (10:23)
[2023-02-11] MEDS: DOCUSATE SODIUM 100 MG CAP PO SCH (10:25)
[2023-02-11] MEDS: ACETAMINOPHEN 325 MG TAB PO PRN (10:42)
--- NOTE | 2023-02-11 11:13 | Hospitalist Progress Note ---
Date of Service February 11, 2023 Assessment & Plan (1) Lymphedema: Plan: Chronic lymphedema Presented with worsening leg edema Suspected left leg cellulitis Chronic prednisone use likely contributing Immunocompromised patient (H/O chronic steroid Rx/CellCept Rx for pemphigoid) --ECHO: Mild concentric LVH. EF 60 to 65%. Aortic valve is trileaflet. Aortic valve leaflets are mildly calcified with mild restriction leaflet mobility minimal aortic stenosis, trace aortic insufficiency. Mild mitral annular calcification. Trace mitral and tricuspid regurgitation. Right ventricular systolic pressure 30-40mmHg -- Hypoalbuminemia likely contributing as well --Venous Doppler:There is no sonographic evidence of deep venous thrombosis identified in the right or left lower extremity. --LE X ray:No osteomyelitis --Blood Cultures: Negative -- IV Lasix transition to p.o. Lasix 20 mg 2 times daily --Completed 7-day course of doxycycline and ceftriaxone for possible cellulitis continue PT OT Plan to discharge to rehab today Atypical chest pain Likely due to GERD Echo showed no wall motion abnormality Troponin negative Appreciate cardiology input Started on pepcid Continue PPI Hypomagnesemia Hypokalemia Replace electrolytes as needed LLQ pain likely due to constipation -abdomen soft, + bowel sounds KUB suggestive of moderate fecal retention On Linzess at home Continue bowel regimen Acute on chronic hyponatremia secondary to illness/possible right-sided heart failure/fluid retention Sodium level 133 monitor Demand ischemia No significant elevation of troponin Monitor Underweight with BMI 19.1 Other chronic conditions: Valvular 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, TTE 2020) H/O ovarian cancer status post surgery/chemotherapy chronic thrombocytopenia secondary to myeloproliferative neoplasm, intolerant of prior outpatient treatments, patient declines further care as per outpatient [facility] Hematology note from 3 months ago chronic anemia (baseline hemoglobin 8-9), hemoglobin at baseline Monitor CBC Leukocytosis secondary to myeloproliferative neoplasm Primary hyperparathyroidism, failed attempts to see Endocrinology outpatient as per records Postsurgical hypothyroidism, euthyroid H/O chronic LE DVT, not on anticoagulation secondary to bleeding risk Skin cancer as per records Recurrent admissions, functional disability Past tobacco abuse Case management to help with discharge planning DVT Px: SCDs Re: Thrombocytopenia Code Status DNR/DNI Disposition Lives at home Rehab today Admission and Anticipated Discharge Date Admission Date: January 28, 2023 Subjective Patient is seen and examined at bedside Subjectively feels better Discussed with patient's daughter at bedside No recurrence of chest pain today Had bowel movement yesterday Denies any dyspnea, nausea, vomiting, abdominal pain, dizziness Plan to discharge to [facility] today Review of Systems Review of Systems: All systems reviewed & are unremarkable except as noted in Subjective Physical Exam Physical Exam: Physical Exam: Vitals signs as noted above General Appearance:Thin, frail, Elderly, no apparent distress Head: normocephalic, Atraumatic Eyes: normal inspection, EOMI Neck: supple, Trachea midline Respiratory/Chest: Normal breath sounds, CTA, No accessory muscle use Cardiovascular: S1, S2, No murmur Abdomen/GI:Soft, Non tender, Bowel sounds present Extremities/Musculoskeletal:normal inspection, B/L LE edema improved Neurologic/Psych:AAOX2, grossly no focal neurological deficits , Decreased hearing Skin: normal color, warm Results & Data Results & Data Vital Signs (Past 12 Hours) Vital Signs Temp Pulse Pulse Pulse Resp BP Pulse Ox 02/11/23 09:42 79 02/11/23 08:12 37.6 C H 79 20 133/67 99 02/11/23 03:24 75 02/11/23 03:15 37.1 C 78 18 126/70 99 02/10/23 23:56 37.0 C 76 18 130/70 98 O2 Del Method O2 Flow Rate 02/11/23 09:42 02/11/23 08:12 Nasal Cannula 2 02/11/23 03:24 02/11/23 03:15 Nasal Cannula 2 02/10/23 23:56 Room Air
--- NOTE | 2023-02-11 11:24 | Discharge Summary ---
Date of Service February 11, 2023 Admission HPI Per Admitting Provider History obtained from patient, family, and records. 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 Last confinement last month for complicated UTI and LE cellulitis. LLE ulcerated wound after inadvertent scratch by daughter at home. Cultures negative. Patient discharged on cefdinir and doxycycline course. Chronic nonocclusive LE thrombus noted during confinement. Prophylactic Lovenox recommended by [facility] transfusion specialist. Home not done anticoagulation due to patient seen and thrombocytopenia. PT recommended rehab but patient wanted to go home as per documentation. Worsening bilateral leg swelling noted in the last couple of weeks despite compression pumps and manual lymph drainage massage. Patient unable to tolerate home nursing treatments due to pain. No chest pain or unusual shortness of breath. No fever, no chills. Denies abdominal pain. Patient losing weight although appetite good as per daughter. Denies inordinate intake of water. Increased redness on left leg noted the last few days. LLE wound from last month not healing but without drainage as per daughter. Right foot injury after a fork fell on it today as per daughter. Blood-tinged drainage noted. Patient brought to ER for evaluation. 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 Admission Exam Per Admitting Provider GENERAL: Slightly uncomfortable, wane, underweight, no respiratory distress SKIN: Pallor, warm HEENT: Pale palpebral conjunctivae, no ptosis, dry buccal mucosa NECK : Supple, no tenderness CHEST : CTA, no tenderness HEART : RRR, systolic murmur ABDOMEN: Minimal distention, no tenderness EXTREMITIES : Bilateral LE swelling, LLE erythema, LLE ulcerated wound without drainage, minimal right pedal erythema NEUROLOGIC : Coherent, no facial asymmetry, no other gross focality Principal Diagnosis Chronic lymphedema left leg cellulitis GERD Hypomagnesemia Hypokalemia Chronic Constipation Hyponatremia Discharge Data Allergies Allergy/AdvReac Type Severity Reaction Status Date / Time naproxen Allergy Mild RASH Verified 12/25/22 16:45 niacin Allergy Mild RASH Verified 12/25/22 16:45 Consultations 01/28/23 18:29 ED Decision to Admit Stat 02/10/23 10:29 Consult Cardiology Routine Procedures Performed Laboratory Results WBC 21.35 K/ul (4.8-10.8) H 02/11/23 06:09 RBC 2.30 M/uL (4.20-5.40) L 02/11/23 06:09 Hgb 8.8 g/dl (12.0-16.0) L 02/11/23 06:09 Hct 26.8 % (37.0-47.0) L 02/11/23 06:09 MCV 116.5 fL (80.0-100.0) H 02/11/23 06:09 MCH 38.3 pg (25.0-34.0) H 02/11/23 06:09 MCHC 32.8 g/dL (32.0-36.0) 02/11/23 06:09 RDW Std Deviation 109.7 fL (36.4-46.3) H 02/11/23 06:09 RDW Coeff of Yee 26.5 % (11.5-14.5) H 02/11/23 06:09 Plt Count 82 K/uL (130-400) L 02/11/23 06:09 MPV 10.5 fL (9.4-12.4) 02/11/23 06:09 Immature Gran % (Auto) 8.4 % 01/28/23 15:13 Neut % (Auto) 65.8 % 01/28/23 15:13 Lymph % (Auto) 6.2 % 01/28/23 15:13 [place] % (Auto) 13.8 % 01/28/23 15:13 Eos % (Auto) 4.0 % 01/28/23 15:13 Baso % (Auto) 1.8 % 01/28/23 15:13 Neut # (Auto) 15.85 K/uL (1.40-6.50) H 01/28/23 15:13 Lymph # (Auto) 1.50 K/uL (1.20-3.40) 01/28/23 15:13 [place] # (Auto) 3.31 K/uL (0.11-0.59) H 01/28/23 15:13 Eos # (Auto) 0.97 K/uL (0.00-0.50) H 01/28/23 15:13 Baso # (Auto) 0.43 K/uL (0.00-0.20) H 01/28/23 15:13 Immature Gran # (Auto) 2.01 K/uL (0.01-0.20) H 01/28/23 15:13 Absolute Nucleated RBC 0.12 K/uL (0.00-0.12) 02/11/23 06:09 Nucleated RBC % (auto) 0.6 % 02/11/23 06:09 Neutrophils % (Manual) 86 % 01/29/23 06:24 Lymphocytes % (Manual) 3 % 01/29/23 06:24 Monocytes % (Manual) 3 % 01/29/23 06:24 Eosinophils % (Manual) 3 % 01/29/23 06:24 Basophils % (Manual) 3 % 01/29/23 06:24 Metamyelocytes % (Man) 1 % 01/29/23 06:24 Blast Cells % (Manual) 1 % 01/29/23 06:24 Neutrophils # (Manual) 17.80 K/uL (1.40-6.50) H 01/29/23 06:24 Total Absolute Neuts 17.80 K/uL (1.4-6.5) H 01/29/23 06:24 Lymphocytes # (Manual) 0.62 K/uL (1.2-3.4) L 01/29/23 06:24 Total Abs Lymphocytes 0.62 K/uL (1.2-3.4) L 01/29/23 06:24 Monocytes # (Manual) 0.62 K/uL (0.11-0.59) H 01/29/23 06:24 Eosinophils # (Manual) 0.62 K/uL (0-0.50) H 01/29/23 06:24 Basophils # (Manual) 0.62 K/uL (0-0.2) H 01/29/23 06:24 Metamyelocytes # (Man) 0.21 K/uL (0-0) H 01/29/23 06:24 Blast Cells # (Man) 0.21 K/uL (0-0) H 01/29/23 06:24 Platelet Estimate Decreased (Normal) L 01/28/23 15:13 Polychromasia 2+ 01/29/23 06:24 Anisocytosis Present 01/29/23 06:24 Macrocytosis Present 01/29/23 06:24 Tear Drop Cells 2+ 01/29/23 06:24 Ovalocytes 1+ 01/29/23 06:24 Sodium 133 mmol/L (136-145) L 02/11/23 06:09 Potassium 4.3 mmol/L (3.5-5.1) 02/11/23 06:09 Chloride 97 mmol/L (98-107) L 02/11/23 06:09 Carbon Dioxide 32 mmol/L (21-32) 02/11/23 06:09 Anion Gap 4 (3-11) 02/11/23 06:09 BUN 23 mg/dl (6-23) 02/11/23 06:09 Creatinine 0.73 mg/dl (0.6-1.2) 02/11/23 06:09 Est Cr Clr Drug Dosing 37.8 ml/min 02/11/23 06:09 Est GFR ( Amer) 85.2 ml/min 02/11/23 06:09 Est GFR (Non-Af Amer) 73.5 ml/min 02/11/23 06:09 BUN/Creatinine Ratio 31.5 (10-20) H 02/11/23 06:09 Glucose 92 mg/dl (70-99(Fasting)) 02/11/23 06:09 Osmolality 269 mOsm/kg (280-300) L 01/28/23 15:13 Lactate 1.0 mmol/L (0.4-2.0) 01/29/23 06:32 Calcium 9.4 mg/dl (8.6-10.3) 02/11/23 06:09 Phosphorus 3.0 mg/dl (2.5-4.9) 02/07/23 07:10 Magnesium 2.0 mg/dl (1.7-2.4) 02/08/23 07:00 Total Bilirubin 0.6 mg/dl (0.2-1.0) 01/28/23 15:13 AST 13 U/L (13-39) 01/28/23 15:13 ALT 7 U/L (7-52) 01/28/23 15:13 Alkaline Phosphatase 68 U/L (34-104) 01/28/23 15:13 Troponin I High Sens 11.3 pg/ml (0-14) 02/10/23 12:45 B-Natriuretic Peptide 187 pg/ml (0-100) H 01/28/23 15:13 Total Protein 5.0 gm/dl (6.0-8.3) L 01/28/23 15:13 Albumin 2.9 gm/dl (3.4-5.0) L 01/28/23 15:13 Globulin 2.1 gm/dl (2.5-4.0) L 01/28/23 15:13 Albumin/Globulin Ratio 1.4 (0.9-2) 01/28/23 15:13 Lipase 13 U/L (11-82) 01/28/23 15:13 TSH 4.441 uIu/ml (0.300-4.500) 01/28/23 15:13 Urine Color Yellow 02/02/23 Unknown Urine Appearance Clear (Clear) 02/02/23 Unknown Urine pH 8.0 (4.5-7.5) H 02/02/23 Unknown Ur Specific [place] 1.007 (1.000-1.030) 02/02/23 Unknown Urine Protein Negative (Negative) 02/02/23 Unknown Urine Glucose (UA) Negative (Negative) 02/02/23 Unknown Urine Ketones Negative (Negative) 02/02/23 Unknown Urine Blood Negative (Negative) 02/02/23 Unknown Urine Nitrite Negative (Negative) 02/02/23 Unknown Urine Bilirubin Negative (Negative) 02/02/23 Unknown Urine Urobilinogen Negative (Negative) 02/02/23 Unknown Ur Leukocyte Esterase Negative (Negative) 02/02/23 Unknown Urine WBC (Auto) 1-5 /hpf (0-5) 01/28/23 21:46 Urine RBC (Auto) 0-4 /hpf (0-4) 01/28/23 21:46 U Hyaline Cast (Auto) 0 /lpf (0-5) 01/28/23 21:46 U Epithel Cells (Auto) 0-5 /lpf (0-5) 01/28/23 21:46 Urine Bacteria (Auto) Negative (Negative) 01/28/23 21:46 Urine Osmolality 250 mOsm/kg (500-800) L 01/28/23 21:46 Ur Random Sodium 71 mmol/L 01/28/23 21:46 SARS-CoV-2, RNA, NAAT NEGATIVE (NEGATIVE) 01/28/23 15:40 Impressions Venous Doppler Study 01/28/23 15:12 ULTRASOUND BILATERAL LOWER EXTREMITY VENOUS CLINICAL HISTORY: Lower extremity pain and swelling. COMPARISON STUDY: Bilateral lower extremity venous ultrasound dated 12/25/2022 TECHNIQUE: Real-time, grayscale, and color Doppler sonography of the deep veins of the right and left lower extremity was performed from the inguinal crease to the calf. Compression and augmentation were utilized. FINDINGS: There is no sonographic evidence of deep venous thrombosis identified in the right or left lower extremity. The common femoral, superficial femoral, and popliteal veins are patent and normally compressible bilaterally. The greater saphenous vein and the profunda femoris vein at the junction with the common femoral vein are clear in both legs. The visualized calf veins are patent bilaterally. Soft tissue edema is noted in both legs. IMPRESSION: There is no sonographic evidence of deep venous thrombosis identified in the right or left lower extremity. ACT 112: Negative or not required by law. Electronically signed by: Boyd Stanton M.D. 01/28/2023 6:11 PM Foot X-Ray 01/28/23 15:13 RIGHT FOOT 2 VIEWS CLINICAL HISTORY: Right foot pain. FINDINGS: AP and crosstable lateral views of the right foot are obtained. No prior studies are available for comparison at the time of dictation. The skeletal structures are osteopenic. No fracture is seen. Mild osteoarthritic change is noted throughout the foot, greatest at the first metatarsophalangeal joint. There are large dorsal and plantar heel spurs. Soft tissue edema is seen throughout the foot, greatest dorsally. IMPRESSION: 1. Soft tissue swelling with no acute bony abnormality identified. 2. Osteopenia with degenerative change and large heel spurs as above. Electronically signed by: Boyd Stanton M.D. 01/28/2023 3:58 PM Tibia/Fibula X-Ray 01/28/23 20:30 LEFT TIBIA AND FIBULA 2 VIEWS CLINICAL HISTORY: Left leg swelling. FINDINGS: AP and lateral views of the left tibia and fibula are correlated with radiographs of left knee dated 09/19/2022. The skeletal structures are osteopenic. There is no radiographic evidence of left tibial or fibular fracture. The knee and ankle joints are grossly maintained. There are large dorsal and plantar heel spurs. Soft tissue edema is present throughout the left leg. IMPRESSION: Soft tissue swelling with no radiographic evidence of acute fracture. Electronically signed by: Boyd Stanton M.D. 01/28/2023 9:49 PM KUB X-Ray 02/09/23 07:00 KUB HISTORY: indigestion, belching, substernal pain COMPARISON: KUB 02/05/2023. FINDINGS: No diagnosis of bowel to suggest an obstruction. Moderate fecal retention again noted. This is similar to the prior study. No renal calculi. No ureteral calculi. Calcifications in the deep pelvis likely represent phlebolit hs. No pneumoperitoneum or pneumatosis. Prior cholecystectomy. IMPRESSION: 1. Nonobstructive bowel gas pattern. 2. Moderate fecal retention, unchanged. ACT 112: Negative or not required by law. Electronically signed by: Te Ham M.D. 02/09/2023 12:39 PM Chest X-Ray 02/10/23 09:35 XR chest 1V portable HISTORY: chest pain COMPARISON: Chest 02/03/2023. FINDINGS: No pneumothorax. The cardiac silhouette remains mildly enlarged. Mild interstitial pulmonary edema and small bilateral pleural effusions persist. Patchy bibasilar densities have slightly progressed. There are calcifications within the aortic knob. Prior cholecystectomy. IMPRESSION: 1. Mild interstitial pulmonary edema and small bilateral pleural effusions again noted. 2. Patchy bibasilar densities have slightly progressed. This favors atelectasis. A superimposed pneumonia would be difficult to exclude. ACT 112: Negative or not required by law. Electronically signed by: Te Ham M.D. 02/10/2023 11:14 AM Ordered Studies 01/28/23 15:12 US venous doppler LE Stat Hospital Course (1) Lymphedema: Chronic lymphedema Presented with worsening leg edema Suspected left leg cellulitis Chronic prednisone use likely contributing Immunocompromised patient (H/O chronic steroid Rx/CellCept Rx for pemphigoid) --ECHO: Mild concentric LVH. EF 60 to 65%. Aortic valve is trileaflet. Aortic valve leaflets are mildly calcified with mild restriction leaflet mobility minimal aortic stenosis, trace aortic insufficiency. Mild mitral annular calcification. Trace mitral and tricuspid regurgitation. Right ventricular systolic pressure 30-40mmHg -- Hypoalbuminemia likely contributing as well --Venous Doppler:There is no sonographic evidence of deep venous thrombosis identified in the right or left lower extremity. --LE X ray:No osteomyelitis --Blood Cultures: Negative -- IV Lasix transition to p.o. Lasix 20 mg 2 times daily --Completed 7-day course of doxycycline and ceftriaxone for possible cellulitis continue PT OT Plan to discharge to rehab today Atypical chest pain Likely due to GERD Echo showed no wall motion abnormality Troponin negative Appreciate cardiology input Started on pepcid Continue PPI Hypomagnesemia Hypokalemia Replace electrolytes as needed LLQ pain likely due to constipation -abdomen soft, + bowel sounds KUB suggestive of moderate fecal retention On Linzess at home Continue bowel regimen Acute on chronic hyponatremia secondary to illness/possible right-sided heart failure/fluid retention Sodium level 133 monitor Demand ischemia No significant elevation of troponin Monitor Underweight with BMI 19.1 Other chronic conditions: Valvular 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, TTE 2020) H/O ovarian cancer status post surgery/chemotherapy chronic thrombocytopenia secondary to myeloproliferative neoplasm, intolerant of prior outpatient treatments, patient declines further care as per outpatient [facility] Hematology note from 3 months ago chronic anemia (baseline hemoglobin 8-9), hemoglobin at baseline Monitor CBC Leukocytosis secondary to myeloproliferative neoplasm Primary hyperparathyroidism, failed attempts to see Endocrinology outpatient as per records Postsurgical hypothyroidism, euthyroid H/O chronic LE DVT, not on anticoagulation secondary to bleeding risk Skin cancer as per records Recurrent admissions, functional disability Past tobacco abuse Case management to help with discharge planning DVT Px: SCDs Re: Thrombocytopenia Code Status DNR/DNI Disposition Lives at home Rehab today Total Time Total Time Spent Total Time Spent (In Minutes): 55 minutes Discharge Plan Discharge Items Patient Disposition: Transfer [facility] Reason For Visit: HYPONATREMIA Discharge Diagnosis: Chronic lymphedema left leg cellulitis GERD Hypomagnesemia Hypokalemia Chronic Constipation Hyponatremia Activity: Per Instructions section Exercise/Sports: Gradually increase as tolerated Non-emergency contact: Primary Care Provider Call non-emergency contact if: you have any medication questions, your symptoms worsen, your pain is concerning for you and you have a fever Follow-up/Referrals: Ivy Meier MD [Primary Care Provider] - Diet: Heart Healthy Addtl Attending Provider Instructions: Follow-up with your primary care physician Dr. Meier in 1 week Seek immediate medical attention if your symptoms reoccur or worsen Please take all medications as instructed on discharge list below. Please call if you have any questions or problems. You can reach a [facility] hospitalist on duty at [facility] 24 hours a day by calling [phone] Pending Studies at Discharge: No Stand-Alone Forms: My [facility] Skilled Items Patient informed of condition?: Yes DNR: Yes Discharge Level of Care: Skilled Communicable Disease: No Discharge Prognosis: Stable Lines: None Urinary Catheter: No Medications and DC Order Prescriptions: New furosemide 20 mg Tablet 20 mg PO BID Qty: 60 0RF potassium chloride 10 mEq capsule, extended release 10 meq PO DAILY Qty: 30 0RF docusate sodium 100 mg Capsule 100 mg PO BID Qty: 60 0RF Rx Instructions: Hold for diarrhea famotidine [Acid Tsa Screener (famotidine)] 10 mg Tablet 10 mg PO BID Qty: 60 0RF Advanced Probiotic 625 mg (10 billion cell) Capsule 2 cap PO DAILY Qty: 20 0RF polyethylene glycol 3350 [Miralax] 17 gram Powder In Packet 17 g PO DAILY PRN (Reason: Constipation) Qty: 30 0RF Continued dorzolamide-timolol (PF) 2-0.5 % Drops 1 drp OPB BID omeprazole 20 mg capsule,delayed release(DR/EC) 20 mg PO DAILYBB Rx Instructions: take 1 hour before first meal of the day mycophenolate mofetil 500 mg tablet 500 mg PO DAILY prednisone 10 mg tablet 5 - 10 mg PO QAM Rx Instructions: take with food cyanocobalamin (vitamin B-12) 100 mcg Tablet 200 mcg PO DAILY ferrous sulfate [FeroSul] 325 mg (65 mg iron) tablet 325 mg PO QAM Rx Instructions: take with breakfast Linzess 145 mcg capsule 145 mcg PO DAILYBB dexamethasone 0.5 mg/5 mL elixir 0.5 mg PO BID PRN (Reason: mouth ulcers) Rx Instructions: swish and spit 5 ml acetaminophen [Tylenol Extra Strength] 500 mg Tablet 1,000 mg PO Q6H PRN (Reason: Pain) cholecalciferol (vitamin D3) [Vitamin D3] 25 mcg (1,000 unit) Tablet 25 mcg PO DAILY levothyroxine 100 mcg tablet 100 mcg PO DAILYBB Discharge Orders: Discharge Order (Routine); Ordered 02/11/23 Ordered By: Luis Hayes Admission Data Admit Date/Time: 01/28/23 20:26 Attending Provider: Luis Hayes Admit Provider: Wilder Bai Primary Care Provider: Ivy Meier Other Providers: Tomasa Covington ; Percy Vasquez ; [facility] ; [place],[facility] ; Shaun Mckeon
--- NOTE | 2023-02-13 08:36 | Coding Query ---
SEPSIS To promote full compliance with coding requirements relating to patient care, physician participation is requested in all cases of inbound customer service representative uncertainty. Please assist us with the question(s) below: I The medical record reflects the following clinical findings: Pt admitted with cellulitis of the leg. 01/29 progress note mentioned Sepsis. Please document below, if applicable, the diagnosis that was treated during this Inpatient stay. thank you . Xavier Fairchild, [facility] ____ ( )Bacteremia (Nonspecific laboratory finding of bacteria in the blood) Specify Organism ( ) Present on Admission ( x) Not present on admission ( ) Unable to clinically determine ( ) Septicemia (Systemic disease associated with the presence of pathogenic microorganisms in the blood): Specify Organism ( ) Present on Admission (x ) Not present on admission ( ) Unable to clinically determine ( ) Sepsis Specify Organism Specify Associated Condition/Diagnosis ( ) Present on Admission (x ) Not present on admission ( ) Unable to clinically determine ( ) Severe Sepsis (Sepsis associated with acute organ dysfunction) Specify Organism Specify Associated Condition/Diagnosis ( ) Present on Admission (x ) Not present on admission ( ) Unable to clinically determine ( ) Septic Shock (Severe sepsis with acute circulatory failure, unexplained by other causes) ( ) Present on Admission (x ) Not present on admission ( ) Unable to clinically determine ( ) Other, patient has: MTDD
== END 2023-02-11 14:07 | DRG 602 ==
LOC: ED 15:02 → 2N 20:26 → SUATTDRO 20:26 → 2N 22:16

== ENCOUNTER 2023-05-11 15:30 | Inpatient (IN) ==
--- NOTE | 2023-05-11 15:48 | Emergency Department Note ---
Impression & Plan SIRS (systemic inflammatory response syndrome), Primary myelofibrosis, RSV infection, Hypoxia, Lymphedema, Hypoalbuminemia ED Provider Note NAME: INGA MENDEZ AGE: 88 SEX: F ARRIVES VIA: Ambulance INFORMANT: Patient ED PROVIDER(S): Duran Cuevas MD CHIEF COMPLAINT: Shortness of breath, referred. 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 She had been placed on steroids by her outpatient providers but her daughter at bedside notes that she became acutely worse today. She reports she did have a fever today of 101. She denies any chest pain, nausea, vomiting, diarrhea or urinary symptoms. On evaluation the patient is ill-appearing, with temperature of 37.7, HR 100s, RR mid 20s, and vital signs otherwise stable. O2 saturation is 80% on room air and so placed on 2 L nasal cannula. She exhibits scant wheezes of bilateral lung hagen. She has pitting edema of bilateral lower extremities, right greater than left which the patient's daughter reports is within her baseline range of edema. EKG without overt acute ischemia. CXR negative for acute cardiopulmonary process per my personal preliminary review/interpretation. WBC 24.4 K with neutrophil predominance but similar to prior values in the setting of myelofibrosis. H/H similar to prior. Platelets 89 K, similar to prior range values in setting of chronic thrombocytopenia. Chemistry without metabolic acidosis. Total bilirubin 1.1, nonspecific and LFTs otherwise normal. High-sensitivity troponin 11.2, within normal limits. BNP is 410, mildly increased from prior values and nonspecific in the setting of most recent echo from January of this year demonstrating normal EF but with elevated right-sided pressures. Albumin is 2.9 similar to prior range of values and likely explains component of patient's lymphedema/third spacing. Procalcitonin is elevated at 0.65. UA without convincing evidence of infection. MRSA swab was negative. Respiratory bio fire was positive for RSV. CT of the chest was performed and demonstrates near complete mucoid opacification of the right lower lobe bronchi with small patchy airspace opacities right lung base which may represent aspiration pneumonitis. Trace left pleural effusion is seen. There is no evidence of pulmonary embolus. CT of the abdomen pelvis demonstrates persistent splenomegaly with interval development of multiple splenic infarcts. Diffuse body wall edema and small ascites consistent with patient's hypoalbuminemia. Given the patient's presentation with fevers and tachycardia empiric treatment was initiated with IV cefepime following obtaining a blood cultures. 500 cc of normal saline administered given SIRS presentation. 30 cc/kg was deferred given her peripheral edema and elevated BNP. DuoNeb administered due to component of bronchospasm on exam. Given the patient's hypoxia with RSV infection and possible superimposed aspiration pneumonia patient referred to hospitalist service for admission. Case was discussed with Faustino Goff, with [facility] who will evaluate the patient for admission. Further management per admitting team. Triage Nursing notes reviewed and agree them. Prior/external medical records reviewed Vital Signs: reviewed Differential diagnosis: Reactive airway disease, pneumonia, pneumothorax, COPD, CHF, infections, cardiac ischemia, pulmonary embolism, musculoskeletal, gastrointestinal, as well as other pathologies. ER treatment provided: See below. Diagnostics interpreted by me: ECG: Sinus tachycardia, 114 bpm, no ectopy, no overt ST elevation or depression, QTc 419, QRS 70 Cardiac Monitoring: An order for continuous cardiac monitoring was placed and demonstrated Sinus tachycardia, 114 bpm, no ectopy. 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 She had been placed on steroids by her outpatient providers but her daughter at bedside notes that she became acutely worse today. She reports she did have a fever today of 101. She denies any chest pain, nausea, vomiting, diarrhea or urinary symptoms. ROS: See above HPI for pertinent positives & negatives. A total of 10 systems reviewed and were otherwise negative. VITALS:See Below PHYSICAL EXAMINATION: GENERAL: Awake, alert, ill-appearing, in no distress HENT: Normocephalic, atraumatic. Oropharynx with dry mucous membranes and otherwise unremarkable. EYES: Normal conjunctiva. Sclera non-icteric. NECK: Supple. No nuchal rigidity. FROM. No JVD. RESPIRATORY: Scant wheezes bilateral lung hagen and otherwise clear to auscultation. CARDIAC: Tachycardic rate, normal rhythm. Extremities warm and well perfused. Pulses equal. ABDOMEN: Soft, non-distended. No tenderness to palpation. No rebound or guarding. No masses. RECTAL: Deferred. MUSCULOSKELETAL: Chest examination reveals no tenderness. The back is symmetrical on inspection without obvious abnormality. There is no CVA tenderness to palpation. No joint edema. LOWER EXTREMITIES: Bilateral lower extremity pitting edema right greater than left consistent with chronic lymphedema with mild tenderness but no erythema or warmth. NEURO: No sensory or motor deficits noted. SKIN: No rash or jaundice noted. 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 Hyperparathyroidism Glaucoma Hiatal hernia Kidney stones Hyperlipidemia Diet controlled Surgical History Hx of bilateral cataract extraction Hx of cystoscopy S/P debridement OF STOMA SITE History of colostomy reversal History of cholecystectomy History of bowel resection FOR PERFORATION WITH COLOSTOMY Previous back surgery LOWER BACK-NO METAL IMPLANTED History of colonoscopy History of lithotripsy S/P thyroidectomy FOR GOITER History of hysterectomy TOTAL Family History Father CHF (congestive heart failure) Mother Hypertension Social History Smoking Status: Former smoker Tobacco Type: Cigarettes Second Hand Exposure: No; Do You Dip or Chew Tobacco: No; Hx Alcohol Use: No Hx Substance Use: No Preferred Language: Luxembourgish Communication Ability: Effective Senior Production Planner Required: No Beliefs That Will Affect Care: None marital status: / Current Living Situation: Other Current Living Situation Comment: penitentiary apartment How many Children do You have: 2 Feels Safe at Home: Yes Assistive Devices: Hearing Aid - Bilateral, Walker and Wheelchair Allergies Allergies Allergy/AdvReac Type Severity Reaction Status Date / Time naproxen Allergy Mild RASH Verified 05/11/23 17:19 niacin Allergy Mild RASH Verified 05/11/23 17:19 Home Meds Home Medications Medication Instructions Recorded Confirmed dorzolamide 2 %-timolol 0.5 % (PF) 1 drp OPB BID 05/24/19 05/11/23 eye drops mycophenolate mofetil 500 mg tablet 500 mg PO DAILY 10/29/20 05/11/23 omeprazole 20 mg capsule,delayed 20 mg PO DAILYBB 10/29/20 05/11/23 release prednisone 10 mg tablet 5 mg PO QAM 01/24/21 05/11/23 ferrous sulfate 325 mg (65 mg 325 mg PO QAM 06/22/21 05/11/23 iron) tablet (FeroSul) acetaminophen 500 mg tablet 1,000 mg PO Q6H PRN Pain 09/19/22 05/11/23 (Tylenol Extra Strength) cholecalciferol (vitamin D3) 25 25 mcg PO DAILY 09/19/22 05/11/23 mcg (1,000 unit) tablet (Vitamin D3) levothyroxine 100 mcg tablet 100 mcg PO DAILYBB 12/25/22 05/11/23 dexamethasone 0.5 mg/5 mL oral 0.5 mg PO BID PRN mouth ulcers 01/28/23 05/11/23 elixir linaclotide 145 mcg capsule 145 mcg PO DAILYBB 01/28/23 05/11/23 (Linzess) cyanocobalamin (vitamin B-12) 500 500 mcg PO DAILY 05/11/23 05/11/23 mcg tablet (Vitamin B-12) doxycycline hyclate 100 mg capsule 100 mg PO BID 05/11/23 05/11/23 prednisone 10 mg tablet 0 mg PO DAILY 05/11/23 05/11/23 Previous Rx's Medication Instructions Recorded furosemide 20 mg tablet 20 mg PO BID #60 tabs 02/11/23 polyethylene glycol 3350 17 gram 17 g PO DAILY PRN Constipation #30 02/11/23 oral powder packet (Miralax) ea potassium chloride 10 mEq 10 meq PO DAILY #30 caps 02/11/23 capsule,extended release Results & Data (ED) Vital Signs Vital Signs - 24 hr 05/11/23 15:43 05/11/23 15:43 05/11/23 16:06 Temperature 37.7 C H 37.7 C H Temperature Source Oral Oral Pulse Rate 106 H 97 H Pulse Rate [Apical] Pulse Rhythm Regular Pulse Rhythm [Apical] Pulse Strength Normal Pulse Strength [Apical] Respiratory Rate 25 H 20 Respiratory Effort / Characteristics Non-Labored Spontaneous Respiratory Depth Normal Respiratory Pattern Regular Blood Pressure 135/58 L Blood Pressure [Right Arm] Blood Pressure Mean 83 Blood Pressure Mean [Right Arm] Blood Pressure Position Semi-fowlers Blood Pressure Position [Right Arm] Pulse Oximetry 95 99 Oxygen Delivery Method Nasal Cannula Nasal Cannula Oxygen Flow Rate 2 2 Sepsis Recent Fever Within 48 Hours Yes Sepsis New/Unexplained Change in Mental Status N/A Sepsis Action Taken by Nursing No Action Required 05/11/23 16:06 05/11/23 16:18 05/11/23 17:21 Temperature Temperature Source Pulse Rate 109 H Pulse Rate [Apical] 96 H Pulse Rhythm Pulse Rhythm [Apical] Regular Pulse Strength Pulse Strength [Apical] Normal Respiratory Rate 20 20 Respiratory Effort / Characteristics Non-Labored Spontaneous Non-Labored Spontaneous Respiratory Depth Normal Normal Respiratory Pattern Regular Blood Pressure Blood Pressure [Right Arm] 115/65 Blood Pressure Mean Blood Pressure Mean [Right Arm] 81 Blood Pressure Position Blood Pressure Position [Right Arm] Semi-fowlers Pulse Oximetry 99 99 Oxygen Delivery Method Nasal Cannula Nasal Cannula Oxygen Flow Rate 2 2 Sepsis Recent Fever Within 48 Hours Sepsis New/Unexplained Change in Mental Status Sepsis Action Taken by Nursing 05/11/23 20:18 Temperature Temperature Source Pulse Rate 77 Pulse Rate [Apical] Pulse Rhythm Pulse Rhythm [Apical] Pulse Strength Pulse Strength [Apical] Respiratory Rate Respiratory Effort / Characteristics Respiratory Depth Respiratory Pattern Blood Pressure Blood Pressure [Right Arm] Blood Pressure Mean Blood Pressure Mean [Right Arm] Blood Pressure Position Blood Pressure Position [Right Arm] Pulse Oximetry Oxygen Delivery Method Oxygen Flow Rate Sepsis Recent Fever Within 48 Hours Sepsis New/Unexplained Change in Mental Status Sepsis Action Taken by Nursing Laboratory Data Attestation: I reviewed the patient's lab results. 05/11/23 15:50 05/11/23 15:50 Lab Results 05/11/23 05/11/23 05/11/23 Range/Units 15:50 16:00 16:08 WBC 24.41 H (4.8-10.8) K/ul RBC 2.57 L (4.20-5.40) M/uL Hgb 9.7 L (12.0-16.0) g/dl Hct 28.4 L (37.0-47.0) % MCV 110.5 H (80.0-100.0) fL MCH 37.7 H (25.0-34.0) pg MCHC 34.2 (32.0-36.0) g/dL RDW Std Deviation 102.6 H (36.4-46.3) fL RDW Coeff of Yee 25.5 H (11.5-14.5) % Plt Count 89 L (130-400) K/uL Absolute Nucleated RBC 0.41 H (0.00-0.12) K/uL Nucleated RBC % (auto) 1.7 % Neutrophils % (Manual) 73 % Lymphocytes % (Manual) 6 % Monocytes % (Manual) 12 % Eosinophils % (Manual) 1 % Basophils % (Manual) 1 % Metamyelocytes % (Man) 2 % Myelocytes % (Man) 3 % Blast Cells % (Manual) 2 % Neutrophils # (Manual) 17.82 H (1.40-6.50) K/uL Total Absolute Neuts 17.82 H (1.4-6.5) K/uL Lymphocytes # (Manual) 1.46 (1.2-3.4) K/uL Total Abs Lymphocytes 1.46 (1.2-3.4) K/uL Monocytes # (Manual) 2.93 H (0.11-0.59) K/uL Eosinophils # (Manual) 0.24 (0-0.50) K/uL Basophils # (Manual) 0.24 H (0-0.2) K/uL Metamyelocytes # (Man) 0.49 H (0-0) K/uL Myelocytes # (Manual) 0.73 H (0-0) K/uL Blast Cells # (Man) 0.49 H (0-0) K/uL Blood Smear Review Toxic Granulation 1+ Platelet Estimate Decreased L (Normal) Polychromasia 1+ Anisocytosis Present Macrocytosis Present Tear Drop Cells 2+ Stomatocytes 2+ Sodium 130 L (136-145) mmol/L Potassium 4.0 (3.5-5.1) mmol/L Chloride 97 L (98-107) mmol/L Carbon Dioxide 28 (21-32) mmol/L Anion Gap 5 (3-11) BUN 18 (6-23) mg/dl Creatinine 0.47 L (0.6-1.2) mg/dl Est Cr Clr Drug Dosing 58.8 ml/min Est GFR ( Amer) 102.2 ml/min Est GFR (Non-Af Amer) 88.2 ml/min BUN/Creatinine Ratio 38.3 H (10-20) Glucose 88 (70-99(Fasting)) mg/dl Lactate 1.6 (0.4-2.0) mmol/L Calcium 9.1 (8.6-10.3) mg/dl Phosphorus 2.3 L (2.5-4.9) mg/dl Magnesium 1.7 (1.7-2.4) mg/dl Total Bilirubin 1.1 H (0.2-1.0) mg/dl Direct Bilirubin 0.2 (0-0.2) mg/dl AST 14 (13-39) U/L ALT 9 (7-52) U/L Alkaline Phosphatase 76 (34-104) U/L Troponin I High Sens 11.2 (0-14) pg/ml B-Natriuretic Peptide 410 H (0-100) pg/ml Total Protein 5.4 L (6.0-8.3) gm/dl Albumin 2.9 L (3.4-5.0) gm/dl Lipase 9 L (11-82) U/L Procalcitonin 0.65 H (0-0.5) ng/ml Urine Color Dark Yellow Urine Appearance Clear (Clear) Urine pH 6.5 (4.5-7.5) Ur Specific Buchanan 1.015 (1.000-1.030) Urine Protein Negative (Negative) Urine Glucose (UA) Negative (Negative) Urine Ketones Negative (Negative) Urine Blood Negative (Negative) Urine Nitrite Negative (Negative) Urine Bilirubin Negative (Negative) Urine Urobilinogen Negative (Negative) Ur Leukocyte Esterase Trace H (Negative) Urine WBC (Auto) 1-5 (0-5) /hpf Urine RBC (Auto) 0-4 (0-4) /hpf U Hyaline Cast (Auto) 1-5 (0-5) /lpf U Epithel Cells (Auto) 10-20 H (0-5) /lpf Urine Bacteria (Auto) Negative (Negative) Nasal Screen MRSA (PCR) (Negative) Adenovirus (PCR) Not Detected (NotDetected) B. pertussis DNA (PCR) Not Detected (NotDetected) B.parapertussis DNA PCR Not Detected (NotDetected) C. pneumoniae DNA (PCR) Not Detected (NotDetected) Coronavirus OC43 (PCR) Not Detected (NotDetected) Coronavirus HKU1 (PCR) Not Detected (NotDetected) Coronavirus 229E (PCR) Not Detected (NotDetected) SARS-CoV-2 (PCR) Not Detected (NotDetected) Coronavirus NL63 (PCR) Not Detected (NotDetected) Human Metapneumovir PCR Not Detected (NotDetected) Influenza Type A (PCR) Not Detected (NotDetected) Influenza Type B (PCR) Not Detected (NotDetected) M. pneumoniae (PCR) Not Detected (NotDetected) Parainfluenza 1 (PCR) Not Detected (NotDetected) Parainfluenza 2 (PCR) Not Detected (NotDetected) Parainfluenza 3 (PCR) Not Detected (NotDetected) Parainfluenza 4 (PCR) Not Detected (NotDetected) RSV (PCR) DETECTED A* (NotDetected) Entero/Rhino (PCR) Not Detected (NotDetected) 05/11/23 05/11/23 Range/Units 17:10 19:40 WBC (4.8-10.8) K/ul RBC (4.20-5.40) M/uL Hgb (12.0-16.0) g/dl Hct (37.0-47.0) % MCV (80.0-100.0) fL MCH (25.0-34.0) pg MCHC (32.0-36.0) g/dL RDW Std Deviation (36.4-46.3) fL RDW Coeff of Yee (11.5-14.5) % Plt Count (130-400) K/uL Absolute Nucleated RBC (0.00-0.12) K/uL Nucleated RBC % (auto) % Neutrophils % (Manual) % Lymphocytes % (Manual) % Monocytes % (Manual) % Eosinophils % (Manual) % Basophils % (Manual) % Metamyelocytes % (Man) % Myelocytes % (Man) % Blast Cells % (Manual) % Neutrophils # (Manual) (1.40-6.50) K/uL Total Absolute Neuts (1.4-6.5) K/uL Lymphocytes # (Manual) (1.2-3.4) K/uL Total Abs Lymphocytes (1.2-3.4) K/uL Monocytes # (Manual) (0.11-0.59) K/uL Eosinophils # (Manual) (0-0.50) K/uL Basophils # (Manual) (0-0.2) K/uL Metamyelocytes # (Man) (0-0) K/uL Myelocytes # (Manual) (0-0) K/uL Blast Cells # (Man) (0-0) K/uL Blood Smear Review Toxic Granulation Platelet Estimate (Normal) Polychromasia Anisocytosis Macrocytosis Tear Drop Cells Stomatocytes Sodium (136-145) mmol/L Potassium (3.5-5.1) mmol/L Chloride (98-107) mmol/L Carbon Dioxide (21-32) mmol/L Anion Gap (3-11) BUN (6-23) mg/dl Creatinine (0.6-1.2) mg/dl Est Cr Clr Drug Dosing ml/min Est GFR ( Amer) ml/min Est GFR (Non-Af Amer) ml/min BUN/Creatinine Ratio (10-20) Glucose (70-99(Fasting)) mg/dl Lactate (0.4-2.0) mmol/L Calcium (8.6-10.3) mg/dl Phosphorus 2.8 (2.5-4.9) mg/dl Magnesium (1.7-2.4) mg/dl Total Bilirubin (0.2-1.0) mg/dl Direct Bilirubin (0-0.2) mg/dl AST (13-39) U/L ALT (7-52) U/L Alkaline Phosphatase (34-104) U/L Troponin I High Sens (0-14) pg/ml B-Natriuretic Peptide (0-100) pg/ml Total Protein (6.0-8.3) gm/dl Albumin (3.4-5.0) gm/dl Lipase (11-82) U/L Procalcitonin (0-0.5) ng/ml Urine Color Urine Appearance (Clear) Urine pH (4.5-7.5) Ur Specific Buchanan (1.000-1.030) Urine Protein (Negative) Urine Glucose (UA) (Negative) Urine Ketones (Negative) Urine Blood (Negative) Urine Nitrite (Negative) Urine Bilirubin (Negative) Urine Urobilinogen (Negative) Ur Leukocyte Esterase (Negative) Urine WBC (Auto) (0-5) /hpf Urine RBC (Auto) (0-4) /hpf U Hyaline Cast (Auto) (0-5) /lpf U Epithel Cells (Auto) (0-5) /lpf Urine Bacteria (Auto) (Negative) Nasal Screen MRSA (PCR) Negative (Negative) Adenovirus (PCR) (NotDetected) B. pertussis DNA (PCR) (NotDetected) B.parapertussis DNA PCR (NotDetected) C. pneumoniae DNA (PCR) (NotDetected) Coronavirus OC43 (PCR) (NotDetected) Coronavirus HKU1 (PCR) (NotDetected) Coronavirus 229E (PCR) (NotDetected) SARS-CoV-2 (PCR) (NotDetected) Coronavirus NL63 (PCR) (NotDetected) Human Metapneumovir PCR (NotDetected) Influenza Type A (PCR) (NotDetected) Influenza Type B (PCR) (NotDetected) M. pneumoniae (PCR) (NotDetected) Parainfluenza 1 (PCR) (NotDetected) Parainfluenza 2 (PCR) (NotDetected) Parainfluenza 3 (PCR) (NotDetected) Parainfluenza 4 (PCR) (NotDetected) RSV (PCR) (NotDetected) Entero/Rhino (PCR) (NotDetected) Administered Medications Guaifenesin (Guaifenesin 600 Mg Tabcr) 1,200 mg PO Q12 ALEXANDRE Stop: 06/10/23 20:59 Last Admin: 05/11/23 20:06 Dose: 1,200 mg Documented By: RYAN Discontinued Medications Albuterol (Albut/Ipratrop 3mg/0.5mg Neb 3 Ml Vial) 3 ml NEB NOW STA; Protocol Stop: 05/11/23 16:09 Last Admin: 05/11/23 16:18 Dose: 3 ml Documented By: RYAN Sodium Chloride (Nss) 500 mls @ 999 mls/hr IV .Q31M ONE Stop: 05/11/23 16:38 Last Infusion: 05/11/23 17:10 Dose: Infused Documented By: Admin: 05/11/23 16:18 Dose: 999 mls/hr Documented By: RYAN Cefepime HCl (Maxipime) 2,000 mg in 20 mls @ 5 mls/min IV NOW STA; Protocol Stop: 05/11/23 16:12 Last Admin: 05/11/23 16:18 Dose: 5 mls/min Documented By: RYAN Acetaminophen (Ofirmev) 1,000 mg in 100 mls @ 400 mls/hr IV NOW STA Stop: 05/11/23 16:24 Last Infusion: 05/11/23 17:10 Dose: Infused Documented By: Admin: 05/11/23 16:18 Dose: 400 mls/hr Documented By: RYAN Piperacillin Sod/Tazobactam (Sod 4.5 gm/ Dextrose) 100 mls @ 25 mls/hr IV Q8H ALEXANDRE; Protocol Stop: 05/18/23 19:14 Last Admin: 05/11/23 21:23 Dose: Not Given Documented By: RYAN Vancomycin HCl 1,000 mg/ (Sodium Chloride) 270 mls @ 200 mls/hr IV Q12H ALEXANDRE; Protocol Stop: 05/18/23 19:14 Last Admin: 05/11/23 21:23 Dose: Not Given Documented By: RYAN Piperacillin Sod/Tazobactam (Sod 4.5 gm/ Dextrose) 100 mls @ 200 mls/hr IV NOW ONE; Protocol Stop: 05/11/23 19:59 Last Admin: 05/11/23 20:04 Dose: 200 mls/hr Documented By: RYAN Vancomycin HCl 1,000 mg/ (Sodium Chloride) 270 mls @ 200 mls/hr IV ONE ONE Stop: 05/11/23 21:05 Last Admin: 05/11/23 21:11 Dose: 200 mls/hr Documented By: RYAN Ioversol (Optiray 320 125ml) 118 ml IV ONCE ONE Stop: 05/11/23 17:27 Last Admin: 05/11/23 17:27 Dose: 118 ml Documented By: ASHLEY Imaging Data Radiologist's Impression: Chest X-Ray 05/11/23 16:06 XR chest 1V portable HISTORY: Sepsis COMPARISON: Chest 02/10/2023. FINDINGS: No pneumothorax. No pleural effusions. The heart remains mildly enlarged. No focal lung consolidations to suggest a pneumonia. No evidence for pulmonary edema. No acute fractures identified. Calcifications within the aortic knob. IMPRESSION: No acute process. ACT 112: Negative or not required by law. Electronically signed by: Te Ham M.D. 05/11/2023 4:23 PM Abdomen/Pelvis CT 05/11/23 17:[address] WITH IV CONTRAST CT DOSE: HISTORY: Fever. sepsis TECHNIQUE: Multiaxial CT images of the abdomen and pelvis were performed following the use of intravenous contrast. A dose lowering technique was utilized adhering to the principles of ALARA. COMPARISON STUDY: Abdomen and pelvis CT 12/25/2022. FINDINGS: The lung bases will be reported on the same day chest CTA. No pneumoperitoneum. No pneumatosis. No acute fractures identified. The large hiatus hernia again noted. Prior cholecystectomy. The liver, pancreas, and adrenal glands are unremarkable. A few small bilateral renal cysts are again noted. There is bilateral nephrolithiasis. No hydronephrosis. The spleen remains enlarged. There are scattered peripheral hypodense foci within the spleen consistent with splenic infarcts. Dominant splenic infarct within the lower pole measures 5 cm. Moderate body wall edema is noted. The main portal vein is patent. Calcified plaque within the normal caliber abdominal aorta. No retroperitoneal or pelvic lymphadenopathy. Small amount of perihepatic and perisplenic ascites is noted. Normal bladder. Prior hysterectomy. Colonic diverticulosis. No evidence for acute diverticulitis. There appears a mild thickening of the majority of the colon with mild pericolonic fat stranding. This may represent a mild pancolitis. No dilated loops of bowel to suggest an obstruction. Mesenteric edema is noted. IMPRESSION: 1. 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 2. Questionable mild pancolitis. 3. Diffuse body wall edema and a small amount of ascites. 4. The lung bases will be reported separately on the same day chest CT. 5. Bilateral nephrolithiasis. No hydronephrosis. 6. Large hiatus hernia, unchanged. 7. Additional findings as described above. ACT 112: Negative or not required by law. Electronically signed by: Te Ham M.D. 05/11/2023 5:54 PM Chest CTA 05/11/23 17:07 CHEST CTA for PULMONARY ARTERIES CT DOSE: 708.56 mGy.cm HISTORY: hypoxia, fever, sob, r/o PE TECHNIQUE: Multiaxial CT images of the chest were performed following the intravenous administration of contrast to evaluate the pulmonary arteries. 3D/Maximal intensity projection images were also obtained. Sagittal and coronal reformations were also reviewed. A dose lowering technique was utilized adhering to the principles of ALARA. COMPARISON STUDY: Chest CTA 12/25/2022. FINDINGS: There is a subacute mild superior endplate compression fracture at T3 demonstrating up to 10% loss of height. This is new compared the prior study. No acute fractures identified. No pneumothorax. Near complete mucoid opacification of the right lower lobe bronchi. Small patchy airspace opacities within the base of the right lower lobe. This could represent an aspiration pneumonitis. The abdominal structures will be reported separately. There is a trace left pleural effusion. The heart remains mildly enlarged. There is a large hiatus hernia again noted. No mediastinal or hilar lymphadenopathy. Calcified plaque within the normal caliber thoracic aorta. No evidence for an aortic dissection. No filling defects within the pulmonary arteries to suggest a pulmonary embolus. Coronary artery calcifications are again noted. Stable 3 mm nodule within the left lung apex. IMPRESSION: 1. No evidence for a pulmonary embolus. 2. Near-complete mucoid opacification of the right lower lobe bronchi with small patchy airspace opacities at the right lung base. This may represent an aspiration pneumonitis. 3. Trace left pleural effusion. 4. A subacute mild superior endplate compression fracture at T3. This is new compared the prior study. No associated retropulsion. 5. Large hiatus hernia again noted. ACT 112: Negative or not required by law. Electronically signed by: Te Ham M.D. 05/11/2023 5:47 PM Discharge Plan Visit Data Chief Complaint: Illness Stated Complaint: ILLNESS, FEVER ED Provider: Duran Cuevas Discharge Problem: SIRS (systemic inflammatory response syndrome), Primary myelofibrosis, RSV infection, Hypoxia, Lymphedema, Hypoalbuminemia Forms Stand Alone Forms: [employer] Prescriptions Prescriptions: No Action dorzolamide-timolol (PF) 2-0.5 % Drops 1 drp OPB BID omeprazole 20 mg capsule,delayed release(DR/EC) 20 mg PO DAILYBB Rx Instructions: take 1 hour before first meal of the day mycophenolate mofetil 500 mg tablet 500 mg PO DAILY prednisone 10 mg tablet 5 mg PO QAM Rx Instructions: ON HOLD TAKING TAPER DOSE AT PRESENT. take with food ferrous sulfate [FeroSul] 325 mg (65 mg iron) tablet 325 mg PO QAM Rx Instructions: take with breakfast Linzess 145 mcg capsule 145 mcg PO DAILYBB dexamethasone 0.5 mg/5 mL elixir 0.5 mg PO BID PRN (Reason: mouth ulcers) Rx Instructions: swish and spit 5 ml furosemide 20 mg Tablet 20 mg PO BID Qty: 60 0RF potassium chloride 10 mEq capsule, extended release 10 meq PO DAILY Qty: 30 0RF polyethylene glycol 3350 [Miralax] 17 gram Powder In Packet 17 g PO DAILY PRN (Reason: Constipation) Qty: 30 0RF acetaminophen [Tylenol Extra Strength] 500 mg Tablet 1,000 mg PO Q6H PRN (Reason: Pain) cholecalciferol (vitamin D3) [Vitamin D3] 25 mcg (1,000 unit) Tablet 25 mcg PO DAILY levothyroxine 100 mcg tablet 100 mcg PO DAILYBB prednisone 10 mg tablet 0 mg PO DAILY Rx Instructions: STARTED 05/09/23 FOR 8 DAYS. doxycycline hyclate 100 mg capsule 100 mg PO BID Rx Instructions: STARTED 05/09/23 FOR 7 DAYS cyanocobalamin (vitamin B-12) [Vitamin B-12] 500 mcg Tablet 500 mcg PO DAILY Referrals Referrals: Ivy Meier MD [Primary Care Provider] -
[2023-05-11] MEDS ORDERED: ALBUT/IPRATROP 3MG/0.5MG NEB 3 ML VIAL NEB STA (16:08)
[2023-05-11] MEDS ORDERED: SODIUM CHLORIDE 0.9% 500 ML IV ONE (16:08)
[2023-05-11] MEDS ORDERED: CEFEPIME 2,000 MG/20 ML VIAL IV STA (16:09)
[2023-05-11] MEDS ORDERED: ACETAMINOPHEN 1,000 MG/100 ML VIAL IV STA (16:10)
--- NOTE | 2023-05-11 16:25 | XRay Report ---
XR chest 1V portable HISTORY: Sepsis COMPARISON: Chest 02/10/2023. FINDINGS: No pneumothorax. No pleural effusions. The heart remains mildly enlarged. No focal lung con solidations to suggest a pneumonia. No evidence for pulmonary edema. No acute fractures identified. C alcifications within the aortic knob. IMPRESSION: No acute process. ACT 112: Negative or not required by law. Electronically signed by: Te Ham M.D. 05/11/2023 4:23 PM
[2023-05-11 16:51] LABS: Appearance Urine Clear (Clear); Bacteria Urine Automated Negative (Negative); Bilirubin Urine Negative (Negative); Blood Urine Negative (Negative); Color Urine Dark Yellow; Glucose Urine UA Negative (Negative); Ketones Urine Negative (Negative); Leukocyte Esterase Urine Trace (Negative); Nitrite Urine Negative (Negative); Protein Urine Negative (Negative); RBC Urine Automated 0-4 /hpf (0-4); Specific Gravity Urine 1.015 (1.000-1.030); Urobilinogen Urine Negative (Negative); pH Urine 6.5 (4.5-7.5)
[2023-05-11 16:56] LABS: Albumin Level 2.9 gm/dl (3.4-5.0); BUN Creatinine Ratio 38.3 (10-20); Bilirubin Direct 0.2 mg/dl (0-0.2); Bilirubin,Total 1.1 mg/dl (0.2-1.0); Calcium 9.1 mg/dl (8.6-10.3); Creatinine Clr Calc Pharmacy 58.8 ml/min; Est GFR (African American) 102.2 ml/min; Est GFR (Non-African American) 88.2 ml/min; Magnesium 1.7 mg/dl (1.7-2.4); Phosphorus 2.3 mg/dl (2.5-4.9); Total Protein 5.4 gm/dl (6.0-8.3)
[2023-05-11 17:01] LABS: Troponin I High Sensitivity 11.2 pg/ml (0-14)
[2023-05-11 17:25] LABS: Adenovirus PCR Not Detected (NotDetected); Bordetella parapertussis PCR Not Detected (NotDetected); Bordetella pertussis PCR Not Detected (NotDetected); Chlamydia pneumoniae PCR Not Detected (NotDetected); Coronavirus 229E PCR Not Detected (NotDetected); Coronavirus CoV-2 (COVID19)PCR Not Detected (NotDetected); Coronavirus HKU1 PCR Not Detected (NotDetected); Coronavirus NL63 PCR Not Detected (NotDetected); Coronavirus OC43PCR Not Detected (NotDetected); Human Metapneumovirus PCR Not Detected (NotDetected); Influenza A PCR Not Detected (NotDetected); Influenza B PCR Not Detected (NotDetected); Mycoplasma pneumoniae PCR Not Detected (NotDetected); Parainfluenza Virus 1 PCR Not Detected (NotDetected); Parainfluenza Virus 2 PCR Not Detected (NotDetected); Parainfluenza Virus 3 PCR Not Detected (NotDetected); Parainfluenza Virus 4 PCR Not Detected (NotDetected); Rhinovirus/Enterovirus PCR Not Detected (NotDetected)
[2023-05-11] MEDS ORDERED: OPTIRAY 320 125ml IV ONE (17:26)
[2023-05-11 17:29] LABS: ALC (manual) 1.46 K/uL (1.2-3.4); ANC (manual) 17.82 K/uL (1.4-6.5); Anisocytosis Present; Basophils # (manual) 0.24 K/uL (0-0.2); Basophils % (manual) 1 %; Blast # (manual) 0.49 K/uL (0-0); Blast Cells % (manual) 2 %; Eosinophils # (manual) 0.24 K/uL (0-0.50); Eosinophils % (manual) 1 %; Hematocrit (blood only) 28.4 % (37.0-47.0); Hemoglobin 9.7 g/dl (12.0-16.0); Lymphocytes # (manual) 1.46 K/uL (1.2-3.4); Lymphocytes % (manual) 6 %; Macrocytosis Present; Mean Corpuscular Hemoglobin 37.7 pg (25.0-34.0); Mean Corpuscular Hgb Conc 34.2 g/dL (32.0-36.0); Mean Corpuscular Volume 110.5 fL (80.0-100.0); Metamyelocytes # (manual) 0.49 K/uL (0-0); Metamyelocytes % (manual) 2 %; Monocytes # (manual) 2.93 K/uL (0.11-0.59); Monocytes % (manual) 12 %; Myelocytes # (manual) 0.73 K/uL (0-0); Myelocytes % (manual) 3 %; Neutrophils # (manual) 17.82 K/uL (1.40-6.50); Neutrophils % (manual) 73 %; Nucleated RBC # (auto) 0.41 K/uL (0.00-0.12); Nucleated RBC % (auto) 1.7 %; Platelet Count 89 K/uL (130-400); Platelet Estimate Decreased (Normal); Polychromasia 1+; RDW Coefficient of Variation 25.5 % (11.5-14.5); RDW Standard Deviation 102.6 fL (36.4-46.3); Red Blood Count 2.57 M/uL (4.20-5.40); Stomatocytes 2+; Tear Drop Cells 2+; Toxic Granulation 1+; White Blood Count 24.41 K/ul (4.8-10.8)
[2023-05-11 17:39] LABS: Respiratory Syncytial VirusPCR DETECTED (NotDetected)
--- NOTE | 2023-05-11 17:49 | CT Scan Report ---
CHEST CTA for PULMONARY ARTERIES CT DOSE: 708.56 mGy.cm HISTORY: hypoxia, fever, sob, r/o PE TECHNIQUE: Multiaxial CT images of the chest were performed following the intravenous administration of contrast to evaluate the pulmonary arteries. 3D/Maximal intensity projection images were also obta ined. Sagittal and coronal reformations were also reviewed. A dose lowering technique was utilized a dhering to the principles of ALARA. COMPARISON STUDY: Chest CTA 12/25/2022. FINDINGS: There is a subacute mild superior endplate compression fracture at T3 demonstrating up to 1 0% loss of height. This is new compared the prior study. No acute fractures identified. No pneumothor ax. Near complete mucoid opacification of the right lower lobe bronchi. Small patchy airspace opaciti es within the base of the right lower lobe. This could represent an aspiration pneumonitis. The abdom inal structures will be reported separately. There is a trace left pleural effusion. The heart remain s mildly enlarged. There is a large hiatus hernia again noted. No mediastinal or hilar lymphadenopath y. Calcified plaque within the normal caliber thoracic aorta. No evidence for an aortic dissection. N o filling defects within the pulmonary arteries to suggest a pulmonary embolus. Coronary artery calci fications are again noted. Stable 3 mm nodule within the left lung apex. IMPRESSION: 1. No evidence for a pulmonary embolus. 2. Near-complete mucoid opacification of the right lower lobe bronchi with small patchy airspace opac ities at the right lung base. This may represent an aspiration pneumonitis. 3. Trace left pleural effusion. 4. A subacute mild superior endplate compression fracture at T3. This is new compared the prior study . No associated retropulsion. 5. Large hiatus hernia again noted. ACT 112: Negative or not required by law. Electronically signed by: Te Ham M.D. 05/11/2023 5:47 PM
--- NOTE | 2023-05-11 17:56 | CT Scan Report ---
ABDOMEN AND PELVIS CT WITH IV CONTRAST CT DOSE: HISTORY: Fever. sepsis TECHNIQUE: Multiaxial CT images of the abdomen and pelvis were performed following the use of intrave nous contrast. A dose lowering technique was utilized adhering to the principles of ALARA. COMPARISON STUDY: Abdomen and pelvis CT 12/25/2022. FINDINGS: The lung bases will be reported on the same day chest CTA. No pneumoperitoneum. No pneumato sis. No acute fractures identified. The large hiatus hernia again noted. Prior cholecystectomy. The l iver, pancreas, and adrenal glands are unremarkable. A few small bilateral renal cysts are again note d. There is bilateral nephrolithiasis. No hydronephrosis. The spleen remains enlarged. There are scat tered peripheral hypodense foci within the spleen consistent with splenic infarcts. Dominant splenic infarct within the lower pole measures 5 cm. Moderate body wall edema is noted. The main portal vein is patent. Calcified plaque within the normal caliber abdominal aorta. No retroperitoneal or pelvic l ymphadenopathy. Small amount of perihepatic and perisplenic ascites is noted. Normal bladder. Prior h ysterectomy. Colonic diverticulosis. No evidence for acute diverticulitis. There appears a mild thick ening of the majority of the colon with mild pericolonic fat stranding. This may represent a mild henderson colitis. No dilated loops of bowel to suggest an obstruction. Mesenteric edema is noted. IMPRESSION: 1. 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 2. Questionable mild pancolitis. 3. Diffuse body wall edema and a small amount of ascites. 4. The lung bases will be reported separately on the same day chest CT. 5. Bilateral nephrolithiasis. No hydronephrosis. 6. Large hiatus hernia, unchanged. 7. Additional findings as described above. ACT 112: Negative or not required by law. Electronically signed by: Te Ham M.D. 05/11/2023 5:54 PM
[2023-05-11] MEDS ORDERED: MAGNESIUM HYDROXIDE SUSP 30 ML UDC PO PRN (18:58)
[2023-05-11] MEDS ORDERED: POLYETHYLENE (MIRALAX) 17 GM PACK PO PRN ×2 (18:58→23:24)
[2023-05-11] MEDS ORDERED: ONDANSETRON INJ 2 MG/ML 2 ML VIAL IV PRN (18:58)
[2023-05-11] MEDS ORDERED: ALUMINUM/MAGNESIUM SUSP 30 ML UDC PO PRN (18:58)
[2023-05-11] MEDS ORDERED: VANCOMYCIN CONSULT ACTIVE PRN (19:01)
[2023-05-11] MEDS ORDERED: VANCOMYCIN HCL 1,000 MG in SODIUM CHLORIDE 0.9% 250 ML IV SCH (19:15)
[2023-05-11] MEDS ORDERED: PIPERACILLIN/TAZOBACTAM 4.5 GM in DEXTROSE 5% MINI-B 100 ML IV SCH (19:15)
[2023-05-11] MEDS ORDERED: PIPER/TAZO 4.5g in D5W MINI-B 100 ML IV ONE (19:30)
--- NOTE | 2023-05-11 19:33 | History & Physical Report ---
Date of Service May 11, 2023 Assessment & Plan (1) Cough: (2) RSV (respiratory syncytial virus infection): (3) Fever: Plan: Presented with cough and weakness On antibiotics recently for UTI and respiratory illness Had fever at home Has chronic leukocytosis, likely due chronic myeloproliferative disease Respiratory PCR is + for RSV Lactate is normal Procal is elevated 0.65 Patient did meet SIRS criteria with leukocytosis, tachycardia. 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 Conservative mgt PT/OT Check Vit D level History of chronic lymphedema BNP mildly elevated at 410 Reviewed TTE from 02/13 Continue lasix DVT ppx: SCD. Will hold pharm agent for now in view of petechiae/ecchymoses and low platelet count today. 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 Patient had UTI about 2 weeks ago and completed antibiotics treatment. Developed cough, postnasal drip over a week ago. Cough is mostly dry. Denies sore throat or congestion. Denied any shortness of breath. Reports generalized weakness. Reports appetite is still good. Denied diarrhea, dysuria, frequency or urgency. Did not have fever until today when she had a fever of 101.7. Daughter report that the patient was improving after this being started on antibiotics 2 days ago for a day and then got worse today Allergies Allergy/AdvReac Type Severity Reaction Status Date / Time naproxen Allergy Mild RASH Verified 05/11/23 17:19 niacin Allergy Mild RASH Verified 05/11/23 17:19 Home Medications Medication Instructions Recorded Confirmed Type dorzolamide 2 %-timolol 0.5 % (PF) 1 drp OPB BID 05/24/19 05/11/23 History eye drops mycophenolate mofetil 500 mg tablet 500 mg PO DAILY 10/29/20 05/11/23 History omeprazole 20 mg capsule,delayed 20 mg PO DAILYBB 10/29/20 05/11/23 History release prednisone 10 mg tablet 5 mg PO QAM 01/24/21 05/11/23 History ferrous sulfate 325 mg (65 mg 325 mg PO QAM 06/22/21 05/11/23 History iron) tablet (FeroSul) acetaminophen 500 mg tablet 1,000 mg PO Q6H PRN Pain 09/19/22 05/11/23 History (Tylenol Extra Strength) cholecalciferol (vitamin D3) 25 25 mcg PO DAILY 09/19/22 05/11/23 History mcg (1,000 unit) tablet (Vitamin D3) levothyroxine 100 mcg tablet 100 mcg PO DAILYBB 12/25/22 05/11/23 History dexamethasone 0.5 mg/5 mL oral 0.5 mg PO BID PRN mouth ulcers 01/28/23 05/11/23 History elixir linaclotide 145 mcg capsule 145 mcg PO DAILYBB 01/28/23 05/11/23 History (Linzess) furosemide 20 mg tablet 20 mg PO BID #60 tabs 02/11/23 05/11/23 Rx polyethylene glycol 3350 17 gram 17 g PO DAILY PRN Constipation #30 02/11/23 05/11/23 Rx oral powder packet (Miralax) ea potassium chloride 10 mEq 10 meq PO DAILY #30 caps 02/11/23 05/11/23 Rx capsule,extended release cyanocobalamin (vitamin B-12) 500 500 mcg PO DAILY 05/11/23 05/11/23 History mcg tablet (Vitamin B-12) doxycycline hyclate 100 mg capsule 100 mg PO BID 05/11/23 05/11/23 History prednisone 10 mg tablet 0 mg PO DAILY 05/11/23 05/11/23 History Past Med/Surg History Medical History Chronic use of steroids Glaucoma Hiatal hernia Hyperlipidemia Diet controlled Hyperparathyroidism 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 Zhou in [place] (oncologist) Thrombocytopenia Surgical History History of bowel resection FOR PERFORATION WITH COLOSTOMY History of cholecystectomy History of colonoscopy History of colostomy reversal History of hysterectomy TOTAL History of lithotripsy Hx of bilateral cataract extraction Hx of cystoscopy Previous back surgery LOWER BACK-NO METAL IMPLANTED S/P debridement OF STOMA SITE S/P thyroidectomy FOR GOITER Family History Father CHF (congestive heart failure) Mother Hypertension Social History Smoking Status: Former smoker Tobacco Type: Cigarettes Second Hand Exposure: No; Do You Dip or Chew Tobacco: No; Hx Alcohol Use: No Hx Substance Use: No Preferred Language: Sudanese Communication Ability: Effective Surgical Aide Required: No Beliefs That Will Affect Care: None marital status: / Current Living Situation: Other Current Living Situation Comment: senior care apartment How many Children do You have: 2 Feels Safe at Home: Yes Assistive Devices: Hearing Aid - Bilateral, Walker and Wheelchair Review of Systems Review of Systems: All systems reviewed & are unremarkable except as noted in HPI & below Physical Exam Constitutional: + ill appearing; no acute distress Elderly woman Eyes: PERRL, conjunctivae normal, anicteric sclerae ENMT: Hearing deficit. Hearing aid in situ Respiratory: normal respiratory effort, lungs clear to auscultation Cardiovascular: Rate/Rhythm: regular rate and regular rhythm S1-S2 Gastrointestinal (Abdomen): normal bowel sounds, soft, nontender, no hepatosplenomegaly Musculoskeletal: Right leg edema [daughter reports she has chronic lymphedema especially in the right leg) Left ankle edema Skin: Petechiae and ecchymoses in extremities Neurologic: PERRL, EOMI, accommodation nl, no face palsy, no dysarthria Psychiatric: A+Ox3, euthymic affect Results & Data Results & Data Vital Signs (Past 12 Hours) Vital Signs Temp Pulse Pulse Resp BP BP Pulse Ox 05/11/23 17:21 96 H 20 115/65 99 05/11/23 16:18 109 H 05/11/23 16:06 20 99 05/11/23 16:06 97 H 20 99 05/11/23 15:43 37.7 C H 05/11/23 15:43 37.7 C H 106 H 25 H 135/58 L 95 O2 Del Method O2 Flow Rate 05/11/23 17:21 Nasal Cannula 2 05/11/23 16:18 05/11/23 16:06 Nasal Cannula 2 05/11/23 16:06 Nasal Cannula 2 05/11/23 15:43 05/11/23 15:43 Nasal Cannula 2 Laboratory Results Abnormal lab results 05/11/23 05/11/23 Range/Units 15:50 16:00 WBC 24.41 H (4.8-10.8) K/ul RBC 2.57 L (4.20-5.40) M/uL Hgb 9.7 L (12.0-16.0) g/dl Hct 28.4 L (37.0-47.0) % MCV 110.5 H (80.0-100.0) fL MCH 37.7 H (25.0-34.0) pg RDW Std Deviation 102.6 H (36.4-46.3) fL RDW Coeff of Yee 25.5 H (11.5-14.5) % Plt Count 89 L (130-400) K/uL Absolute Nucleated RBC 0.41 H (0.00-0.12) K/uL Neutrophils # (Manual) 17.82 H (1.40-6.50) K/uL Total Absolute Neuts 17.82 H (1.4-6.5) K/uL Monocytes # (Manual) 2.93 H (0.11-0.59) K/uL Basophils # (Manual) 0.24 H (0-0.2) K/uL Metamyelocytes # (Man) 0.49 H (0-0) K/uL Myelocytes # (Manual) 0.73 H (0-0) K/uL Blast Cells # (Man) 0.49 H (0-0) K/uL Platelet Estimate Decreased L (Normal) Sodium 130 L (136-145) mmol/L Chloride 97 L (98-107) mmol/L Creatinine 0.47 L (0.6-1.2) mg/dl BUN/Creatinine Ratio 38.3 H (10-20) Phosphorus 2.3 L (2.5-4.9) mg/dl Total Bilirubin 1.1 H (0.2-1.0) mg/dl B-Natriuretic Peptide 410 H (0-100) pg/ml Total Protein 5.4 L (6.0-8.3) gm/dl Albumin 2.9 L (3.4-5.0) gm/dl Lipase 9 L (11-82) U/L Procalcitonin 0.65 H (0-0.5) ng/ml Ur Leukocyte Esterase Trace H (Negative) U Epithel Cells (Auto) 10-20 H (0-5) /lpf RSV (PCR) DETECTED A* (NotDetected) Diagnostic Findings CHEST CTA There is a subacute mild superior endplate compression fracture at T3 demonstrating up to 10% loss of height. This is new compared the prior study. No acute fractures identified. No pneumothorax. Near complete mucoid opacification of the right lower lobe bronchi. Small patchy airspace opacities within the base of the right lower lobe. This could represent an aspiration pneumonitis. The abdominal structures will be reported separately. There is a trace left pleural effusion. The heart remains mildly enlarged. There is a large hiatus hernia again noted. No mediastinal or hilar lymphadenopathy. Calcified plaque within the normal caliber thoracic aorta. No evidence for an aortic dissection. No filling defects within the pulmonary arteries to suggest a pulmonary embolus. Coronary artery calcifications are again noted. Stable 3 mm nodule within the left lung apex. IMPRESSION: 1. No evidence for a pulmonary embolus. 2. Near-complete mucoid opacification of the right lower lobe bronchi with small patchy airspace opacities at the right lung base. This may represent an aspiration pneumonitis. 3. Trace left pleural effusion. 4. A subacute mild superior endplate compression fracture at T3. This is new compared the prior study. No associated retropulsion. 5. Large hiatus hernia again noted. CT ABD/P The lung bases will be reported on the same day chest CTA. No pneumoperitoneum. No pneumatosis. No acute fractures identified. The large hiatus hernia again noted. Prior cholecystectomy. The liver, pancreas, and adrenal glands are unremarkable. A few small bilateral renal cysts are again noted. There is bilateral nephrolithiasis. No hydronephrosis. The spleen remains enlarged. There are scattered peripheral hypodense foci within the spleen consistent with splenic infarcts. Dominant splenic infarct within the lower pole measures 5 cm. Moderate body wall edema is noted. The main portal vein is patent. Calcified plaque within the normal caliber abdominal aorta. No retroperitoneal or pelvic lymphadenopathy. Small amount of perihepatic and perisplenic ascites is noted. Normal bladder. Prior hysterectomy. Colonic diverticulosis. No evidence for acute diverticulitis. There appears a mild thickening of the majority of the colon with mild pericolonic fat stranding. This may represent a mild pancolitis. No dilated loops of bowel to suggest an obstruction. Mesenteric edema is noted. IMPRESSION: 1. 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 2. Questionable mild pancolitis. 3. Diffuse body wall edema and a small amount of ascites. 4. The lung bases will be reported separately on the same day chest CT. 5. Bilateral nephrolithiasis. No hydronephrosis. 6. Large hiatus hernia, unchanged. 7. Additional findings as described abov Code Status & VTE Plan Code Status DNR VTE Prophylaxis Plan VTE Prophylaxis will be ordered: Yes (3) Fever Fever type: unspecified Qualified Code(s): R50.9 - Fever, unspecified (5) Leukocytosis Leukocytosis type: unspecified Qualified Code(s): D72.829 - Elevated white blood cell count, unspecified
[2023-05-11] MEDS ORDERED: VANCOMYCIN HCL 1,000 MG in SODIUM CHLORIDE 0.9% 250 ML IV ONE (19:45)
[2023-05-11] MEDS: guaiFENesin 600 MG TABCR PO SCH (20:06)
[2023-05-11] MEDS ORDERED: ACETAMINOPHEN 325 MG TAB PO PRN (23:24)
[2023-05-11] MEDS ORDERED: dexAMETHasone 2 MG/20 ML UDP PO PRN (23:24)
[2023-05-11] MEDS: FUROSEMIDE 20 MG TAB PO SCH (23:56)
[2023-05-12] MEDS: PIPERACILLIN/TAZOBACTAM 4.5 GM in DEXTROSE 5% MINI-B 100 ML IV SCH ×3 (00:49→17:12)
--- OUTSIDE RECORDS SUMMARY | 2023-05-12 02:47 | External Medical Summary | Summary of Care ---
Author Name Unknown Organization [facility] Address [address] [place] [address] Phone [phone] Care Team Providers Care Cafe Associate Name Role Phone Ivy Meier MD Primary Care Provide r Reason for Visit * Reason Comments [facility]: Telehealth Encounter Details Date Type Department Care Team (Late st Contact Info) Description 05/09/2023 4:30 PM EST Telemedicine [facility] [address] [facility] [address] Radha Marks CRNP [address] [facility] [place] [address] [facility] [address] [place] [address] Bronchitis, complicated*; Myelofibrosis (HCC); Moderate protein-calorie malnutrition (HCC); Pulmonary hypertension, unspecified (HCC); Chronic myeloproliferative disease (HCC); Postsurgical hypothyroidism; 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, bilateral (HCC); Primary open-angle glaucoma, right eye, moderate stage; Senile osteoporosis; Advanced care planning/counseling discussion; Lymphedema; History of ovarian cancer; Gastroesophageal reflux disease, unspecified whether esophagitis present; Mucous membrane pemphigoid Allergies Active Allergy Reactions Criticality Noted Date Comments Naproxen 01/06/2001 Rash localized to forearms and flushing Niacin 11/27/2000 Rash localized to forearms documented as of this encounter (statuses as of 05/09/2023) Medications Medication Sig Dispensed Refills Start Date End Date Status DORZOLAMIDE-TIMOLOL 2-0.5 % OP SOLN one drop in each eye twice a day 0 Active Vitamin D, Cholecalciferol, 1000 units CAPS Take by mouth. 0 Activ e Cyanocobalamin (VITAMIN B 12) 100 MCG lozenge Take 2 Lozenges by mouth in the morning. 0 Active Acetaminophen 500 MG Oral Tablet (Tylenol) Take 2 Tablets by mouth every 6 hours as needed. 0 Active Polyethylene Glycol 3350 17 GM/SCOOP Oral Powder Take 17 g by mouth in the morning. Dissolve one heaping tablespoon in 8 ounces of water or juice.. 0 09/26/2022 Active Famotidine 20 MG Oral Tablet (Pepcid) Take 1 Tablet by mouth in the morning and 1 Tablet before bedtime. 0 Active Docusate Sodium 100 MG Oral Capsule (Colace) Take 1 Capsule by mouth in the morning and 1 Capsule before bedtime. 0 Active Levothyroxine Sodium 100 MCG Oral Tablet (Levoxyl)Indications :Postsurgical hypothyroidism Take 1 Tablet by mouth in the morning. (at least 30 min prior to breakfast or other meds). 90 Tablet 1 02/28/2023 Active Furosemide 20 MG Oral Tablet (Lasix) Take 1 Tablet by mouth in the morning and 1 Tablet before bedtime. 180 Tablet 1 02/28/2023 Active Potassium Chloride Eusebia ER 10 MEQ Oral Tablet Extended Release Take 1 Tablet by mouth in the morning. 90 Tablet 1 02/28/2023 Active dexAMETHasone 0.5 MG/5ML Oral Solution (Decadron)Indication s:Mucous membrane pemphigoid 5 ml twice daily as needed during flares of mouth ulcers 240 mL 0 03/22/2023 Active predniSONE 10 MG Oral Tablet (Deltasone)Indicatio ns:Mucous membrane pemphigoid Take 1/2 to 1 tablet by mouth in the morning with food 90 Tablet 1 04/10/2023 Active Ferrous Sulfate 325 (65 Fe) MG Oral Tablet (Feosol) Take 1 Tablet by mouth daily with breakfast. 90 Tablet 1 04/10/2023 Active Linzess 145 MCG Oral Capsule (linaCLOtide)Indicat ions:Slow transit constipation Take 1 Capsule by mouth daily before breakfast. 90 Capsule 1 04/10/2023 Active Omeprazole 20 MG Oral Capsule Delayed Release (PriLOSEC) TAKE ONE CAPSULE BY MOUTH EVERY DAY ONE hour BEFORE first meal of THE DAY 30 Capsule 5 05/09/2023 Active predniSONE 10 MG Oral Tablet (Deltasone)Indicatio ns:Bronchitis, complicated Take 4 Tablets by mouth daily for 2 days, THEN 3 Tablets daily for 2 days, THEN 2 Tablets daily for 2 days, THEN 1 Tablet daily for 2 days. Hold maintenance dose of prednisone while on this taper. 20 Tablet 0 05/09/2023 4 Active Doxycycline Hyclate 100 MG Oral CapsuleIndications:B ronchitis, complicated Take 1 Capsule by mouth in the morning and 1 Capsule before bedtime. Do all this for 7 days. Take for 7 days. 14 Capsule 0 05/09/2023 4 Active documented as of this encounter (statuses as of 05/09/2023) Active Problems Problem Noted Date Diagnosed Date Bronchitis, complicated 05/09/2023 Last Assessment & Plan: Concerned for reported worsening symptoms. Will treat with antibiotic and prednisone. She will hold daily pred until taper completed. TT to [facility] scheduling to fax CXR mobile order for tomorrow. If any infiltrates found will cover for CAP. Called dgt Suzy and gave update (she prepares medication) Intake calls daily x 48 hours. Myelofibrosis 02/28/2023 Pulmonary hypertension, unspecified 02/28/2023 Overview: Echo 02/18/21: Interpretation Summary The examination is adequate to evaluate the referral indication. The LV wall thickness is mildly increased (concentric). The left ventricular wall motion is normal. The qualitative LV ejection fraction is 60-64% (normal). The left atrium is moderately enlarged. The left ventricular diastolic function is moderately abnormal (grade II). Moderate aortic valve sclerosis is present. Aortic stenosis is absent. Mild aortic valve regurgitation is present. Trace mitral regurgitation is present. The estimated pulmonary artery systolic pressure is 39 mm Hg (mildly eleva Last Assessment & Plan: Continue diuretic Chronic myeloproliferative disease 09/26/2022 BMI less than 19,adult 09/26/2022 Gastroesophageal reflux disease 09/08/2021 Last Assessment & Plan: Continue omeprazole Mucous membrane pemphigoid 10/20/2020 Last Assessment & Plan: no longer on cellcept, taking daily prednisone--per derm telemedicine visit 04/28 to decrease prednisone to 10mg every other day--given dexamethasone swish and spit to use during flares. Aphthous stomatitis 07/15/2020 Primary open-angle glaucoma, right eye, moderate stage 05/22/2020 Last Assessment & Plan: Continue drops as ordered Mild protein-calorie malnutrition 05/22/2020 Last Assessment & Plan: 10lb wt loss since August Referral to [facility] fish farmer Primary myelofibrosis 11/02/2017 Last Assessment & Plan: Followed by oncology via telephone with monthly labs "there is nothing more they can do." 02/28/23--WBC 26.3, hgb 9.7, plt 98 Left carotid bruit 09/26/2016 Vitamin D deficiency 08/16/2016 Lymphedema 02/11/2016 Last Assessment & Plan: RLE--history cellulitis BLE duplex from 02/13--neg for DVT (done [facility]) Personal history of malignant neoplasm of skin 0 10/29/2010 Overview: 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), basal cell carcinoma (R lateral neck 08/2014, 02/2010), Luis Carlos (L forearm, R proximal forearm 03/12, L dorsal hand 03/12), Bowenoid AKs Postsurgical hypothyroidism 08/25/2008 Last Assessment & Plan: Levoxyl 100mcg daily History of ovarian cancer 05/25/2006 Last Assessment & Plan: S/p debulking surgery and chemo Slow transit constipation 11/15/2002 Senile osteoporosis Hypercalcemia Hyperparathyroidism Overview: ICD-10 update of inactive term documented as of this encounter (statuses as of 05/09/2023) Resolved Problems Problem Noted Date Diagnosed Date Resolved Date Glaucoma 02/28/2023 05/09/2023 Chronic embolism and thrombo sis of femoral vein, bilateral 02/28/2023 05/09/2023 Myelofibrosis 10/12/2020 10/21/2021 Squamous cell carcinoma in s itu of skin of trunk 04/03/2019 01/07/2021 Squamous cell carcinoma in s itu (SCCIS) of dorsum of left hand 04/03/2019 01/07/2021 Essential thrombocytosis 04/03/201712/2021 ADVANCE DIRECTIVE INFORMATION 04/06/2011 10/21/2021 Overview: No, Advance Directive brochure given to patient at prior appt. Dyslipidemia, goal LDL below 130 03/31/2009 05/22/2020 Overview: Per Lipid Taxonomy. ACTIVE CASE MANAGEMENT 12/19/200802/08 Overview: Evelyn Myers, RN [phone] Edema 07/09/2007 02/04/2015 Postmenopausal bleeding 12/15/200501/22 Senile nuclear cataract 06/20/200507/24 POST SUBCAP SENILE CATAR 06/20/2005 Cataract extraction status 06/20/2005 0 06/12/2018 Keratoderma, acquired 10/01/20012015 NONTOX UNINODULAR GOITER Heartburn 02/04/2015 Other specified glaucoma 08/2022 PURE HYPERCHOLESTEROLEM 11/2008 Overview: Per Lipid Taxonomy. CARDIOVAS SYS SYMP NEC 02/04 documented as of this encounter (statuses as of 05/09/2023) Immunizations Name Administration Dates Next Due COVID-19 mRNA, LNP-s, No Pre serve, 2-Dose Series (Farm At [employer]) 06/19/2020,05/29/2020 Covid-19 Adenovirus, [place] 1 Vector, 2-dose Series, PF (TrewCap) 02/07/2022,04/01/2021 DTaP Dipth/Tet/Acell Pertussis (Infanrix), Peds 07/24/2021 Pneumococcal Conjugate Vacc, 13 Valent (Prevnar) 02/04/2015 Pneumococcal Polysaccharide PPV23 (Pneumovax) 04/24/2003 Season Influenza, Quad, PF, Adjuvanted, 65+ Yrs, IM (FLUAD) 01/03/2020 Seasonal Influenza, PF, 6 M & above, IM , (FluLaval or Fluzone) 01/04/2019,01/25/2018,01/22/2017 Seasonal Influenza, Quadriva lent Hd (Fluzone Hd) 01/04/2023,02/01/2021 Seasonal Influenza, Quadriva lent, No Preserve, IM 02/04/2015 Seasonal Influenza, Split, I IV3, With Preserve, Inj 02/01/2016,01/27/2014,02/19/2013,01/23,03/09/2011,01/27/2010,01/15/2009 ,02/12/2008,02/08/2007,03/13/2006 TD, Preservative Free 05/27/2010(Deferred: Patie nt Refused) TDAP (age 10 and older)(Boostrix) 08/20/2012 TDAP (age 11 and older)(Adacel) 07/24/2021 Varicella Zoster Vaccine (Adult) 02/18/2020,05/2009 Zoster Vaccine Recombinant (Shingrix) 02/11/2020 ,11/08/2019 documented as of this encounter Social History Tobacco Use Types Packs/Day Years Used Date Smoking Tobacco: Former Cigarettes 1.5 29 Q uit: 04/24/1983 Smokeless Tobacco: Never Comments:quit 21 yrs ago Alcohol Use Standard Drinks/Week Comments No 0 (1 standard drink = 0.6 oz pur e alcohol) PHQ-2 Answer Date Recorded PHQ Adult Total Score 0 05/22/2020 Hunger Vital Sign Answer Date Recorded Within the past 12 months, y ou worried that your food would run out before you got the money to buy more. Never true 09/26/19 23 Within the past 12 months, t he food you bought just didn't last and you didn't have money to get more. Never true 09/25/2022 Sex and Gender Information Value Date Recorded Sex Assigned at Female 09/25/2022 7:21 PM EDT Gender Identity Female 09/25/2022 7:21 PM EDT Sexual Orientation Straight 09/25/2022 7: 21 PM EDT Job Start Date Occupation Industry Not on file Not on file Not on file documented as of this encounter Last Filed Vital Signs Vital Sign Reading Time Taken Comments Blood Pressure 110/40 05/09/2023 4:18 PM EST Pulse 90 05/09/2023 4:18 PM EST Temperature 36.6 C (97.9 F) 05/09/2023 4:18 PM ES T Respiratory Rate 20 05/09/2023 4:18 PM EST Oxygen Saturation - - Inhaled Oxygen Concentration - - Weight - - Height - - Body Mass Index - - documented in this encounter Progress Notes * Radha Marks CRNP - 05/09/2023 4:30 PM EST Images from the original note were not included. [facility] Problem Oriented Charting Provider Visit Date: 05/09/2023 Time:2:58 PM [facility] Sub-Program: [facility] at Home [facility] Episode Start Date: No linked episodes Assessment and Plan #1 Bronchitis, complicated (Primary) Assessment & Plan: Concerned for reported worsening symptoms. Will treat with antibiotic and prednisone. She will holddaily pred until taper completed. TT to [facility] scheduling to fax CXR mobile order for tomorrow. If anyinfiltrates found will cover for CAP. Called dgt Suzy and gave update (she prepares medication) Intake calls daily x 48 hours. Orders: - predniSONE; Take 4 Tablets by mouth daily for 2 days, THEN 3 Tablets daily for 2 days, THEN 2 Tablets daily for 2 days, THEN 1 Tablet daily for 2 days. Hold maintenance dose of prednisone while on this taper. Dispense: 20 Tablet; Refill: 0 - Doxycycline Hyclate; Take 1 Capsule by mouth in the morning and 1 Capsule before bedtime. Do all this for 7 days. Take for 7 days. Dispense: 14 Capsule; Refill: 0 - XR Chest 2 Views #2 Myelofibrosis (HCC) #3 Moderate protein-calorie malnutrition (HCC) Assessment & Plan: 10lb wt loss since August Referral to [facility] fish farmer Orders: - [facility] Internal Communication OP #4 Pulmonary hypertension, unspecified (HCC) Overview: Echo 02/18/21: Interpretation Summary The examination is adequate to evaluate the referral indication. The LV wall thickness is mildly increased (concentric). The left ventricular wall motion is normal. The qualitative LV ejection fraction is 60-64% (normal). The left atrium is moderately enlarged. The left ventricular diastolic function is moderately abnormal (grade II). Moderate aortic valve sclerosis is present. Aortic stenosis is absent. Mild aortic valve regurgitation is present. Trace mitral regurgitation is present. 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, bilateral (HCC) #8 Primary open-angle glaucoma, right eye, moderate stage Assessment & Plan: Continue drops as ordered #9 Senile osteoporosis #10 Advanced care planning/counseling discussion #11 Lymphedema Assessment & Plan: RLE--history cellulitis BLE duplex from 02/13--neg for DVT (done [facility]) #12 History of ovarian cancer Assessment & Plan: S/p debulking surgery and chemo #13 Gastroesophageal reflux disease, unspecified whether esophagitis present Assessment & Plan: Continue omeprazole #14 Mucous membrane pemphigoid Assessment & Plan: no longer on cellcept, taking daily prednisone--per derm telemedicine visit 04/28 to decrease prednisone to 10mg every other day--given dexamethasone swish and spit to use during flares. Additional Medical Decision Making: Plan as noted. Check-out note: [facility] scheduling-please schedule 6-8 week telemedicine follow up with Vj Yin--please place for daily calls x 48 hours Scheduled appointments in the next 60 days: Future Appointments-next 60 days Date/Time Provider Specialty Dept Phone 05/09/2023 4:30 PM [facility]; Radha Marks CRNP [facility] [phone] 05/19/2023 8:30 AM Raquel Lopez, RN [facility] [phone] 08/30/2023 1:40 PM (Arrive by 1:25 PM) Tomasa Covington MD Family Medicine [phone] 10/30/2023 12:45 PM Doyle Osei MD Dermatology [phone] 03/04/2024 1:00 PM (Arrive by 12:45 PM) Ivy Meier MD Family Medicine [phone] A total of 33 minutes was spent face to face (via video-based telemedicine if designated as a telemedicine visit) Subjective Subjective Is this a Telemedicine Visit? Yes, Patient location: HOME. I was not in a hospital or clinic location. After connecting through televideo, patient was verified with two unique identifiers. Patient (or authorized legal business services sales representative) was then informed that this was a Telemedicine visit and being conducted confidentially over secure lines. Methods to assure confidentiality were taken. Patient acknowledged consent and understanding of privacy and security of the Telemedicine visit. The patient agreed to participate. Reason For [facility] Visit: Follow-Up Current Concerns: Milagro Mckoy is a 88 year old female [facility] Inpatient in January at [facility] with lymphedema and left lower extremity cellulitis, atypicalchest pain electrolyte abnormalities. She was treated with antibiotics while inpatient then discharged to [facility] for rehab. She saw PCP 02/28 it was noted she had a hospital bed in the past for her lymphedema to help keep her legs up but it was returned because it was delivered when she was in the hospital. Chronic Condition Review: --mucous membrane pemphigoid--no longer on cellcept, taking daily prednisone--per derm telemedicinevisit 04/28 to decrease prednisone to 10mg every other day--given dexamethasone swish and spit to useduring flares. --myelofibrosis-hydrea and asa on hold presently--followed by oncology--he does telemedicine visitsand gets monthly labs. --history ovarian cancer s/p debulking surgery and chemo --post surgical hypothyroidism --GERD--on omeprazole --osteoporosis--mobile dexa 2014-on vit D --lymphedema RLE--had neg venous duplex 06/15--had some lymphedema therapy in the home but did not help much. --glaucoma--continue eye drops--no recent eye exam, difficult to get out for appts. Today's concerns are: Feeling head and chest congestion for one week. No fevers, no sick contacts. Reports a lot of nasal and chest congestion and coughing a lot. Coughing up thick, clear/white sputum. No muscle aches, No N/V. Coughing is keeping her up at night Tried tylenol and cough drops. She was just treated for UTI with cefdinir on 04/25--was given 7 day course. Additional Objective Objective Vitals: 05/09/23 1618 Temp: 36.6 C (97.9 F) Pulse: 90 Resp: 20 BP: 110/40 Last Weights: Wt Readings from Last 10 Encounters: 12/30/22 42.5 kg (93 lb 11.1 oz) 11/01/22 42.5 kg (93 lb 11.1 oz) 09/26/22 42.5 kg (93 lb 12.8 oz) 08/25/22 47.1 kg (103 lb 13.4 oz) 06/22/22 47.1 kg (103 lb 13.4 oz) 04/28/22 47.1 kg (103 lb 13.4 oz) 02/07/22 47.1 kg (103 lb 13.4 oz) 11/12/21 47.1 kg (103 lb 13.4 oz) 09/09/21 47.1 kg (103 lb 13.4 oz) 02/01/21 47.1 kg (103 lb 12.8 oz) ] Last BPs: BP Readings from Last 4 Encounters: 05/09/23 110/40 04/11/23 104/52 04/11/23 104/52 03/10/23 108/58 Physical Exam Vitals reviewed. Constitutional: Appearance: She is ill-appearing. She is not toxic-appearing. HENT: Head: Normocephalic. Eyes: Conjunctiva/sclera: Conjunctivae normal. Cardiovascular: Rate and Rhythm: Normal rate and regular rhythm. Pulmonary: Effort: Pulmonary effort is normal. Comments: Scattered late wheezing R side Skin: Coloration: Skin is pale. Neurological: General: No focal deficit present. Mental Status: She is alert and oriented to person, place, and time. Psychiatric: Mood and Affect: Mood normal. Behavior: Behavior normal. Lab Review: I have reviewed the following results: BMP results Recent Labs Units 02/28/23 1402 10/28/22 1053 08/24/22 1030 SODIUM - [facility] mmol/L 133* 131* 130* POTASSIUM - [facility] mmol/L 4.6 3.9 3.7 CHLORIDE - [facility] mmol/L 100 99 95* CO2 - [facility] mmol/L 25 26 28 CREATININE - [facility] mg/dL 0.7 0.6 0.7 BUN - [facility] mg/dL 21* 13 14 Lipid panel resultsNo results for input(s): "CHOL", "LDLCALC", "HDL", "TRIG" in the last 84178 hours. CBC results Recent Labs Units 02/28/23 1410 01/04/23 0913 11/30/22 0847 WBC AUTO - [facility] K/uL 26.30* 19.15* 18.54* HGB - [facility] g/dL 9.8* 9.0* 9.0* HCT - [facility] % 32.6* 28.4* 29.5* PLATELET AUTO - [facility] K/uL 98* 93* 97* HbA1c results No results for input(s): "HGBA1C" in the last 37178 hours. TSH results Recent Labs Units 02/28/23 1410 10/28/22 1053 09/28/22 0953 TSH - [facility] uIU/mL 5.85* 2.14 15.80* Vitamin D results No results for input(s): "25OHVITAMIND" in the last 62199 hours. Hepatic panel results Recent Labs Units 10/28/22 1053 08/24/22 1030 04/04/22 1041 PROTEIN - [facility] g/dL 4.8* 5.2* 5.3* BILIRUBIN, TOTAL - [facility] mg/dL 0.6 0.6 0.5 ALKALINE PHOSPHATASE - [facility] U/L 59 68 73 AST - [facility] U/L 13 15 16 ALT - [facility] U/L 13 18 14 Protein/cr ratio results No results for input(s): "PROCRRATIO" in the last 24999 hours. Medication Review "Bottles Out" medication review not performed today MARISSA Zavala 12:49 PM *Communication sent to PCP (via autofax if non[facility]), [facility] Health Care Team members,relevant Specialty Care Physicians* documented in this encounter Miscellaneous Notes * Assessment & Plan Note - Radha Marks CRNP - 05/09/2023 4:47 PM EST Associated Problem(s): Bronchitis, complicated Concerned for reported worsening symptoms. Will treat with antibiotic and prednisone. She will holddaily pred until taper completed. TT to [facility] scheduling to fax CXR mobile order for tomorrow. If anyinfiltrates found will cover for CAP. Called dgt Suzy and gave update (she prepares medication) Intake calls daily x 48 hours. * Assessment & Plan Note - Radha Marks CRNP - 05/09/2023 4:40 PM EST Associated Problem(s): Mucous membrane pemphigoid no longer on cellcept, taking daily prednisone--per derm telemedicine visit 04/28 to decrease prednisone to 10mg every other day--given dexamethasone swish and spit to use during flares. * Assessment & Plan Note - Radha Marks CRNP - 05/09/2023 4:40 PM EST Associated Problem(s): History of ovarian cancer S/p debulking surgery and chemo * Assessment & Plan Note - Radha Marks CRNP - 05/09/2023 4:39 PM EST Associated Problem(s): Gastroesophageal reflux disease Continue omeprazole * Assessment & Plan Note - Radha Marks CRNP - 05/09/2023 4:39 PM EST Associated Problem(s): Lymphedema RLE--history cellulitis BLE duplex from 02/13--neg for DVT (done [facility]) * Assessment & Plan Note - Radha Marks CRNP - 05/09/2023 4:38 PM EST Associated Problem(s): Postsurgical hypothyroidism Levoxyl 100mcg daily * Assessment & Plan Note - Radha Marks CRNP - 05/09/2023 4:38 PM EST Associated Problem(s): Pulmonary hypertension, unspecified (HCC) Continue diuretic * Assessment & Plan Note - Radha Marks CRNP - 05/09/2023 4:37 PM EST Associated Problem(s): Primary open-angle glaucoma, right eye, moderate stage Continue drops as ordered * Assessment & Plan Note - Radha Marks CRNP - 05/09/2023 4:37 PM EST Associated Problem(s): Primary myelofibrosis (HCC) Followed by oncology via telephone with monthly labs "there is nothing more they can do." 02/28/23--WBC 26.3, hgb 9.7, plt 98 * Assessment & Plan Note - Radha Marks CRNP - 05/09/2023 4:35 PM EST Associated Problem(s): Mild protein-calorie malnutrition (HCC) 10lb wt loss since August Referral to [facility] fish farmer * ACP (Advance Care Planning) - Radha Marks CRNP - 05/09/2023 4:29 PM EST Images from the original note were not included. Patient-centered Communication 05/09/2023 The patient/surrogate voluntarily agreed to participate in advance care planning discussion. They were advised that this is a separate service which may incur out of pocket cost in the form of copayment and/or deductibles. Location: Home Individual(s) present for conversation: Patient Decisions Synopsis [employer] Most Recent Value Past ~10 years 10/22/2021 12:30 Decisions CPR decision: Declines CPR 10/22/2021 Declines CPR Intubation/Mechanical Ventilation decision: Declines Intubation/mechanical ventilation 10/22/2021 Declines Intubation/mechanical ventilation Non-invasive ventilation or BIPAP decision: Declines all non-invasive ventilation 10/12/2020 Artificial nutrition decision: Declines Artificial nutrition 10/22/2021 Declines Artificial nutrition IV hydration decision: Yes 10/12/2020 Chemotherapy decision: Not discussed 10/12/2020 Blood transfusion decision: Yes 10/12/2020 Lab draw decision: Yes 10/12/2020 Dying at home decision: Patient chooses Dying at home 06/02/2021 Additional Comments Synopsis [employer] Most Recent Value Past ~10 years 05/09/2023 16:28 Additional Comments Additional Comments: POLST in the home, verifies no changes. 05/09/2023 POLST in the home, verifies no changes. Discerning What Matters Most to the Patient: [employer] Most Recent Value Past ~10 years 10/22/2021 10:18 Discerning What Matters Most to the Patient In their own words, patient's UNDERSTANDING of their illness is: bone marrow and blood problem for 5 yr; was on chemo pill but was told she does not need it 10/22/2021 bone marrow and blood problem for 5 yr; was on chemo pill but was told she does not need it Their current SYMPTOMS include: Tiredness 10/22/2021 Tiredness They say their illness has CHANGED THEIR LIFE by: Other (define below) weakness, dependence 10/22/2021 Other (define below) weakness, dependence Other, patient defines as: Fatigue at times preventive from doing the things she would like to 10/12/2020 The patient thinks COMPLICATIONS in the future may be: More fatigue;Prefers information regarding prognosis 10/12/2020 Was PROGNOSIS discussed? No 10/22/2021 No Prognosis was not discussed due to: Other, please comment uncertainty 10/22/2021 Other, please comment uncertainty Progression of illness described as: A gradual decline 06/02/2021 The patient's HOPES are: with dignity (define below);Avoid further hospitalization;Avoid symptoms 06/02/2021 Avoid symptoms include: Pain 06/02/2021 The patient defines LIVING WELL as: Being with her children and grandchildren and she loves the shop 10/12/2020 The patient's PRIOR EXPERIENCES: Patient to cover her spouse was in a coma and does not want to diethat 10/12/2020 The patient considers these as 'UNACCEPTABLE OUTCOMES': Unable to talk/interact with loved ones;Prolonged hospital stay (define below);Prolonged care home stay (define below);Prolonged mechanical ventilation (define below) 10/12/2020 Prolonged hospital stay, patient defines as: Patient does not want to go back to the hospital and she does not want to be kept alive on 10/12/2020 Prolonged care home stay, patient defines as: Patient does not want to go to a care home 10/12/2020 Prolonged mechanical ventilation, patient defines as: She does not want any mechanical ventilation 10/12/2020 The patient's cultural or spiritual BELIEFS that may affect health care decisions: Zoroastrian bertha is important to her 10/22/2021 Zoroastrian bertha is important to her Source: Content from [facility] Aligning Care With What Matters Most: Synopsis SmartLink Most Recent Value Past ~10 years 10/22/2021 12:30 Aligning Care With What Matters Most In their own words, the patient's understanding of their prognosis: Patient understands her diseaseis not going to go where get better and that is going to wax and wane 10/12/2020 Interventions/Choices: CPR;Intubation/mechanical ventilation;Artificial nutrition 10/22/2021 CPR;Intubation/mechanical ventilation;Artificial nutrition Rationale for Decisions Source: Content from [facility] 5 minutes spent in direct gdsi-[id number] discussion today, MARISSA Zavala documented in this encounter Plan of Treatment Upcoming Encounters Date Type Department Care Team (Late st Contact Info) Description 05/19/2023 8:30 AM EST Home Visit [facility] [address] [facility] [address] Raquel Lopez, DIMPLE [address] [place] [address] 08/30/2023 1:40 PM EDT Office Visit [address] [phone] Tomasa Covington MD [address] [place] [address] [place] [address] 10/30/2023 12:45 PM EDT Telemedicine Dermatology [facility] [address] [facility] [place] [address] Doyle Osei MD [address] [place] [address] 03/04/2024 1:00 PM EST Office Visit [address] [phone] Ivy Meier MD [address] [place] [address] [place] [address] Scheduled Orders Name Type Priority Associated Diagnoses Orde r Schedule XR CHEST 2 VIEWS Medical Imaging Routine Bronchitis, complicated Ordered: 05/09/2023 Health Maintenance Due Date Last Done Comments Depression Screening 05/22/2021 05/22/2020 COVID-19 Vaccine (3 - Pfizer risk series) 03/07/2022 02/07/2022, 04/01/2021, 06/19/2020, Additional history exists TSH 02/29/2024 02/28/2023, 10/2022, 09/28/2022, Additional history exists DTaP,Tdap,and Td Vaccines (4 - Td or Tdap) 07/25/2031 07/24/2021, 07/24/2021, 08/20/2012 DXA Scan Discontinued 08/27/2014, 03/0 07/2012, 03/23/2010, Additional history exists Pneumococcal Vaccine: 65+ Years Completed 02/04/2015, 04/24/2003 *BISPHONATE OR OTHER ACCEPTABLE MEDICATION NEEDED FOR OSTEOPOROSIS (REFER TO SMARTSET #1146) Addressed 11/02/2017 (Not indicated) Overridden with the intention of not completing the topic VITAMIN D LEVEL ONCE IN A LIFETIME-USE SMARTSET# 04359 Completed 02/15/2019, 08/16/2016, 02/11/2016, Additional history exists Zoster Vaccines Completed 02/18/2020, 01/23, 11/08/2019, Additional history exists Influenza Vaccine (FLU shot) Completed 01/04/2023, 02/01/2021, 01/03/2020, Additional history exists GARDASIL-HPV IMMUNIZATION SERIES Aged Out No longer eligible based on patient's age to complete this topic Hepatitis B Aged Out No longer eligi ble based on patient's age to complete this topic MENINGOCOCCAL (MENACTRA/MENVEO) Aged Out No longer eligible based on patient's age to complete this topic documented as of this encounter Medical Devices Not on filedocumented as of this encounter Visit Diagnoses Diagnosis Bronchitis, complicated- Primary Bronchitis, not specified as acute or chronic Myelofibrosis (HCC) Myelofibrosis Moderate protein-calorie malnutrition (HCC) Malnutrition of moderate degree Pulmonary hypertension, unspecified (HCC) Chronic myeloproliferative disease (HCC) 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, bilateral (HCC) Primary open-angle glaucoma, right eye, moderate stage Senile osteoporosis Advanced care planning/counseling discussion Other specified counseling Lymphedema Other lymphedema History of ovarian cancer Personal history of malignant neoplasm of ovary Gastroesophageal reflux disease, unspecified whether esophagitis present 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 Care Teams Cafe Associate Relationship Specialty Start Date End Date Ivy Meier MD [address] [place] [address] [place] [address] PCP - General Family Medicine 01/17/17 documented as of this encounter
--- OUTSIDE RECORDS SUMMARY | 2023-05-12 02:47 | External Medical Summary | Summary of Care ---
Author Name Unknown Organization [facility] Address [address] [place] [address] Phone [phone] Care Team Providers Care Broker Assistant Name Role Phone Ivy Meier MD Primary Care Provide r Reason for Visit * Reason Onset Date Comments Information 05/09/2023 Encounter Details Date Type Department Care Team (Late st Contact Info) Description 05/09/2023 Telephone [facility] [place] [address] [place] [phone] Services, Scheduling [address] [place] [address] Information (//) Allergies Active Allergy Reactions Criticality Noted Date [...] on this taper. 20 Tablet 0 05/09/2023 Active Doxycycline Hyclate 100 MG Oral CapsuleIndications:B ronchitis, complicated Take 1 Capsule by mouth in the morning and 1 Capsule before bedtime. Do all this for 7 days. Take for 7 days. 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 Received a call today from home health nurse that reported that it may be getting worse along with may be little cellulitis. [facility] nurse heel caser saw the patient yesterday and stated that it was a little warm, but otherwise her baseline. She also noted the patient does not wear her compression stocking that physical therapy requested her to utilize. Plan: Encouraged the patient to wear this support stocking as instructed. Keep the leg elevated when possible. Given the tissue irritation that can occur with lymphedema and scratching, I am inclined to start an antibiotic today for a possible early cellulitis. Her nurse heel caser will call in checkup with her later this week. 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 ACTIVE CASE MANAGEMENT 12/19/200802/08 Overview: Evelyn Myers RN [phone] Edema 07/09/2007 02/04/2015 Postmenopausal bleeding 12/15/200501/22 Senile nuclear cataract 06/20/200507/24 POST SUBCAP SENILE CATAR 06/20/2005 Cataract extraction status 06/20/2005 0 06/12/2018 Keratoderma, acquired 10/01/20012015 NONTOX UNINODULAR GOITER Heartburn 02/04/2015 Other specified glaucoma 08/2022 PURE HYPERCHOLESTEROLEM /11/2008 Overview: Per Lipid Taxonomy. CARDIOVAS SYS SYMP NEC 02/04 documented as of this encounter (statuses as of 05/09/2023) Immunizations Name Administration Dates Next Due COVID-19 mRNA, LNP-s, No Pre serve, 2-Dose Series (Pfizer) 06/19/2020,05/29/2020 Covid-19 Adenovirus, [place] 1 Vector, 2-dose Series, PF (AstrInstilling Values) 02/07/2022,04/01/2021 DTaP Dipth/Tet/Acell Pertussis (Infanrix), Peds 07/24/2021 [...] on file documented as of this encounter Miscellaneous Notes * Telephone Encounter - Juan Alberto Arias OSA - 05/09/2023 3:48 PM EST Call to and faxed cxr order, pt ins/demo to [facility], they will be otu today, claim #[id number] documented in this encounter Plan of Treatment Upcoming Encounters Date Type Department Care Team (Late st Contact Info) Description 05/09/2023 4:30 PM EST [facility] [address] [place] [address] Radha Marks CRNP [address] [place] [address] Glory Glez, Community Health Spring Tacker [address] [place] [address] [place] [address] 05/19/2023 8:30 AM EST Home Visit [facility] [place] [address] [place] [address] Raquel Lopez, DIMPLE [address] [place] [address] 08/30/2023 1:40 PM EDT Office Visit Family Medicine [address] [phone] Tomasa Covington MD [address] [place] [address] [place] [address] 10/30/2023 12:45 PM EDT Telemedicine Dermatology [facility] [place] [address] Doyle Osei MD [address] [place] [address] 03/04/2024 1:00 PM EST Office Visit [address] [phone] Ivy Meier MD [address] [place] [address] [place] [address] Health Maintenance Due Date Last Done Comments Depression Screening 05/22/2021 05/22/2020 COVID-19 Vaccine (3 - Pfizer risk series) 03/07/2022 02/07/2022, 04/01/2021, 06/19/2020, Additional history exists TSH 02/29/2024 02/28/2023, 0710/2022, 09/28/2022, Additional history exists DTaP,Tdap,and Td Vaccines (4 - Td or Tdap) 07/25/2031 07/24/2021, 07/24/2021, 08/20/2012 DXA Scan Discontinued 08/27/2014, 0307/2012, 03/23/2010, Additional history exists Pneumococcal Vaccine: 65+ Years Completed 02/04/2015, 04/24/2003 *BISPHONATE OR OTHER ACCEPTABLE MEDICATION NEEDED FOR OSTEOPOROSIS (REFER TO SMARTSET #1146) Addressed 11/02/2017 (Not indicated) Overridden with the intention of not completing the topic VITAMIN D LEVEL ONCE IN A LIFETIME-USE SMARTSET# 97088 Completed 02/15/2019, 08/16/2016, 02/11/2016, Additional history exists [...] Not on filedocumented as of this encounter Additional Health Concerns Infection Onset Date Last Indicated Resolved Time COVID-19 (confirmed) 08/10/2021 08/10/2021 documented as of this encounter Advance Directives Healthcare Agents on File Name Relationship Healthcare Agent Relationship Communication Suzy Prado Adult Child Health Care Joseph r of Tariff Supervisor [email or web address] Care Teams Broker Assistant Relationship Specialty Start Date End Date Ivy Meier MD [address] [place] [address] [place] [address] PCP - General Family Medicine 01/17/17 documented as of this encounter
--- OUTSIDE RECORDS SUMMARY | 2023-05-12 02:47 | External Medical Summary | Summary of Care ---
Author Name Unknown Organization [facility] Address [address] [place] [address] Phone [phone] Care Team Providers Care Truck Car And Bus Cleaner Name Role Phone Ivy Meier MD Primary Care Provide r Reason for Visit * Reason Onset Date Comments Medication Refill 05/08/2023 Encounter Details Date Type Department Care Team (Late st Contact Info) Description 05/08/2023 Refill [facility] [address] [facility] [place] [address] Radha Marks CRNP [address] [place] [address] Allergies Active Allergy Reactions Criticality Noted Date [...] Active Levothyroxine Sodium 100 MCG Oral Tablet (Levoxyl)Indication s:Postsurgical hypothyroidism Take 1 Tablet by mouth in [...] 02/28/2023 Active dexAMETHasone 0.5 MG/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 5 ml twice daily as needed during flares of mouth ulcers 240 mL 0 03/22/2023 Active predniSONE 10 MG Oral Tablet (Deltasone)Indicati ons:Mucous membrane pemphigoid Take 1/2 to 1 tablet by mouth in the morning with food 90 Tablet 1 04/10/2023 Active Ferrous Sulfate 325 (65 Fe) MG Oral Tablet (Feosol) Take 1 Tablet by mouth daily with breakfast. 90 Tablet 1 04/10/2023 Active Linzess 145 MCG Oral Capsule (linaCLOtide)Indica tions:Slow transit constipation Take 1 Capsule by mouth daily before breakfast. 90 Capsule 1 04/10/2023 Active Omeprazole 20 MG Oral Capsule Delayed Release (PriLOSEC) TAKE ONE CAPSULE BY MOUTH EVERY DAY ONE hour BEFORE first meal of THE DAY 30 Capsule 5 05/09/2023 Active Omeprazole 20 MG Oral Capsule Delayed Release (PriLOSEC) TAKE ONE CAPSULE BY MOUTH EVERY DAY ONE hour BEFORE first meal of THE DAY 30 Capsule 5 04/09/2023 4 Discontinue d(Refill) documented as of this encounter (statuses as of 05/09/2023) Active Problems Problem Noted Date Diagnosed Date Myelofibrosis 02/28/2023 Glaucoma 02/28/2023 Pulmonary hypertension, unspecified 02/28/2023 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, [...] worse along with may be little cellulitis. [facility] nurse pillowcase folder saw the patient yesterday and stated that [...] for a possible early cellulitis. Her nurse pillowcase folder will call in checkup with her later [...] Problem Noted Date Diagnosed Date Resolved Date Myelofibrosis 10/12/2020 10/21/2021 Squamous cell carcinoma in [...] CASE MANAGEMENT 12/19/200802/08 Overview: Evelyn Myers RN [phone] Edema 07/09/2007 02/04/2015 Postmenopausal [...] serve, 2-Dose Series (Pfizer) 06/19/2020,05/29/2020 Covid-19 Adenovirus, [place] 1 Vector, 2-dose Series, PF (AstraZeneca) 02/07/2022,04/01/2021 DTaP Dipth/Tet/Acell Pertussis (Infanrix), Peds 07/24/2021 [...] encounter Miscellaneous Notes * Telephone Encounter - Radha Marks CRNP - 05/09/2023 8:52 AM ESTSigned Prescriptions: Disp Refills Omeprazole 20 MG Oral Capsule Delayed Rele*30 Cap*5 Sig: TAKE ONE CAPSULE BY MOUTH EVERY DAY ONE hour BEFORE first meal of THE DAYAuthorizing Provider: RADHA MARKS documented in this encounter Plan of Treatment Upcoming Encounters Date Type Department Care Team (Late st Contact Info) Description 05/09/2023 4:30 PM EST [facility] [address] [facility] [place] [address] Radha Marks CRNP [address] [facility] [place] [address] Glory Glez Community Health Public Relations Associate [address] [place] [address] [place] [address] 05/19/2023 8:30 AM EST [facility] [address] [facility] [place] [address] Raquel Lopez, DIMPLE [address] [facility] [place] [address] 08/30/2023 1:40 PM EDT Office Visit Family Medicine [address] [place] [phone] Tomasa Covington MD [address] [place] [address] [place] [address] 10/30/2023 12:45 PM EDT Telemedicine Dermatology [employer] [address] [place] [address] Doyle Osei MD [address] [facility] [place] [address] 03/04/2024 1:00 PM EST Office Visit Family Medicine [address] [place] [phone] Ivy Meier MD [address] [place] [address] [place] [address] Health Maintenance Due Date Last Done Comments Depression Screening 05/22/2021 05/22/2020 COVID-19 Vaccine (3 - Pfizer risk series) 03/07/2022 02/07/2022, 04/01/2021, 06/19/2020, Additional history exists TSH 02/29/2024 02/28/2023, 10/2022, 09/28/2022, Additional history exists DTaP,Tdap,and Td Vaccines (4 - Td or Tdap) 07/25/2031 07/24/2021, 07/24/2021, 08/20/2012 DXA Scan Discontinued 08/27/2014, 07/2012, 03/23/2010, Additional history exists Pneumococcal Vaccine: 65+ Years Completed 02/04/2015, 04/24/2003 *BISPHONATE OR OTHER ACCEPTABLE MEDICATION NEEDED FOR OSTEOPOROSIS (REFER TO SMARTSET #1146) Addressed 11/02/2017 (Not indicated) Overridden with the intention of not completing the topic VITAMIN D LEVEL ONCE IN A LIFETIME-USE SMARTSET# 77839 Completed 02/15/2019, 08/16/2016, 02/11/2016, Additional history exists [...] Adult Child Health Care Joseph r of Biodiesel Production Associate [email or web address] Care Teams Truck Car And Bus Cleaner Relationship Specialty Start Date End Date Ivy Meier MD [address] [place] [address] [place] [address] PCP - General Family Medicine 01/17/17 documented as of this encounter
--- OUTSIDE RECORDS SUMMARY | 2023-05-12 02:47 | External Medical Summary | Summary of Care ---
Author Name Unknown Organization [facility] Address [address] [place] [address] Phone [phone] Care Team Providers Care Cook Chili Name Role Phone Ivy Meier MD Primary Care Provide r Reason for Visit * Reason Comments [facility]: Telehealth Encounter Details Date Type Department Care Team (Late st Contact Info) Description 05/09/2023 4:30 PM EST Telemedicine [facility], [facility] [address] [facility] [address] Radha Marks CRNP [address] [facility] [address] Glory Glez [facility] [address] [place] [address] Bronchitis, complicated*; Myelofibrosis (HCC); Moderate protein-calorie malnutrition [...] daily pred until taper completed. TT to [facility] scheduling to fax CXR mobile order for [...] 10lb wt loss since August Referral to [facility] hcc coders Primary myelofibrosis 11/02/2017 Last Assessment & Plan: Followed by oncology via telephone with monthly labs "there is nothing more they can do." 02/28/23--WBC 26.3, hgb 9.7, plt 98 Left carotid bruit 09/26/2016 Vitamin D deficiency 08/16/2016 Lymphedema 02/11/2016 Last Assessment & Plan: RLE--history cellulitis BLE duplex from 02/13--neg for DVT (done [facility]) Personal history of malignant neoplasm of skin [...] mRNA, LNP-s, No Pre serve, 2-Dose Series (PingStamp) 06/19/2020,05/29/2020 Covid-19 Adenovirus, [place] 1 Vector, 2-dose Series, PF (Nomiku) 02/07/2022,04/01/2021 DTaP Dipth/Tet/Acell Pertussis (Infanrix), Peds 07/24/2021 [...] the money to buy more. Never true 05/09/19 24 Within the past 12 months, t he food you bought just didn't last and you didn't have money to get more. Never true 05/09/2023 Sex and Gender Information Value Date Recorded [...] documented in this encounter Progress Notes * Glory Glez Community [facility] Supervisor Metalizing - 05/09/2023 5:50 PM EST Telemedicine visit: Yes Patient location: HOME. I was not in a hospital or clinic location. After connecting through televideo, patient was verified with two unique identifiers. Patient (or authorized legal software sales representative) was then informed that this was a Telemedicine visit and being conducted confidentially over secure lines. Methods to assure confidentiality were taken. Patient acknowledged consent and understanding of privacy and security of the Telemedicine visit. The patient agreed to participate. Community Health Supervisor Metalizing (HERMILA) documentation: HERMILA HV for telemed with [facility] provider. See assessments/surveys completed at time of visit. Following visit, HERMILA picked up doxycycline and prednisone from [facility] pharmacy, and delivered to patient. Patient eating soup upon [facility] return. Took first dose of both meds while HERMILA in the home. * Radha Marks CRNP - 05/09/2023 4:30 PM EST Images from the original note were not included. [facility] Problem Oriented Charting Provider Visit Date: 05/09/2023 Time:2:58 PM [facility] Sub-Program: Primary Care at Home [facility] Episode Start Date: No linked episodes Assessment and Plan #1 Bronchitis, complicated (Primary) Assessment & Plan: Concerned for reported worsening symptoms. Will treat with antibiotic and prednisone. She will holddaily pred until taper completed. TT to [facility] scheduling to fax CXR mobile order for [...] 10lb wt loss since August Referral to [facility] hcc coders Orders: - [facility] Internal Communication [...] BLE duplex from 02/13--neg for DVT (done [facility]) #12 History of ovarian cancer Assessment & [...] Decision Making: Plan as noted. Check-out note: [facility] scheduling-please schedule 6-8 week telemedicine follow up with Vj Yin--please place for daily calls x 48 hours Scheduled appointments in the next 60 days: Future Appointments-next 60 days Date/Time Provider Specialty Dept Phone 05/09/2023 4:30 PM Glory Glez, [facility] Health Supervisor Metalizing; Radha Marks CRNP [facility] [phone] 05/19/2023 8:30 AM Raquel Lopez RN [facility] [phone] 08/30/2023 1:40 PM (Arrive by 1:25 PM) Tomasa Covington MD Family Medicine [phone] 10/30/2023 12:45 PM Doyle Osei MD Dermatology [phone] 03/04/2024 1:00 PM (Arrive by 12:45 PM) Iyv Meier MD Family Medicine [phone] A total of 33 minutes was spent face to face (via video-based telemedicine if designated as a telemedicine visit) Subjective Subjective Is this a Telemedicine Visit? Yes, Patient location: HOME. I was not in a hospital or clinic location. After connecting through televideo, patient was verified with two unique identifiers. Patient (or authorized legal software sales representative) was then informed that this was a Telemedicine visit and being conducted confidentially over secure lines. Methods to assure confidentiality were taken. Patient acknowledged consent and understanding of privacy and security of the Telemedicine visit. The patient agreed to participate. Reason For [facility] Visit: Follow-Up Current Concerns: Milagro Mckoy is a 88 year old female seen today for a [facility] provider visit. Inpatient in January at [facility] with lymphedema and left lower extremity cellulitis, atypicalchest pain electrolyte abnormalities. She was treated with antibiotics while inpatient then discharged to [facility] for rehab. She saw PCP [...] Readings from Last 4 Encounters: 05/09/23 110/40 12/19/23 104/52 04/11/23 104/52 03/10/23 108/58 Physical Exam [...] "CHOL", "LDLCALC", "HDL", "TRIG" in the last 71242 hours. CBC results Recent Labs Units 02/28/23 1410 01/04/23 0913 11/30/22 0847 WBC AUTO - [facility] K/uL 26.30* 19.15* 18.54* HGB - [facility] g/dL 9.8* 9.0* 9.0* HCT - [facility] % 32.6* 28.4* 29.5* PLATELET AUTO - [facility] K/uL 98* 93* 97* HbA1c results No results for input(s): "HGBA1C" in the last 68467 hours. TSH results Recent Labs Units 02/28/23 1410 10/28/22 1053 09/28/22 0953 TSH - [facility] uIU/mL 5.85* 2.14 15.80* Vitamin D results No results for input(s): "25OHVITAMIND" in the last 89178 hours. Hepatic panel results Recent Labs Units 10/28/22 1053 08/24/22 1030 04/04/22 1041 PROTEIN - [facility] g/dL 4.8* 5.2* 5.3* BILIRUBIN, TOTAL - [facility] mg/dL 0.6 0.6 0.5 ALKALINE PHOSPHATASE - [facility] U/L 59 68 73 AST - [facility] U/L 13 15 16 ALT - [facility] U/L 13 18 14 Protein/cr ratio results No results for input(s): "PROCRRATIO" in the last 07312 hours. Medication Review "Bottles Out" medication review not performed today MARISSA Zavala 12:49 PM *Communication sent to PCP (via [facility] if [facility]), [facility] Care Team members,relevant Specialty Care Physicians* documented in this encounter Miscellaneous Notes * Assessment & Plan Note - Radha Marks CRNP - 05/09/2023 4:47 PM EST Associated Problem(s): Bronchitis, complicated Concerned for reported worsening symptoms. Will treat with antibiotic and prednisone. She will holddaily pred until taper completed. TT to [facility] scheduling to fax CXR mobile order for [...] BLE duplex from 02/13--neg for DVT (done [facility]) * Assessment & Plan Note - Radha [...] 10lb wt loss since August Referral to [facility] hcc coders * ACP (Advance Care Planning) - Radha [...] Dying at home 06/02/2021 Additional Comments Synopsis SmartLink Most Recent Value Past ~10 years 05/09/2023 16:28 Additional Comments Additional Comments: POLST in the home, verifies no changes. 05/09/2023 POLST in the home, verifies no changes. Discerning What Matters Most to the Patient: Synopsis SmartLink Most Recent Value Past ~10 [...] with loved ones;Prolonged hospital stay (define below);Prolonged long-term stay (define below);Prolonged mechanical ventilation (define below) 10/12/2020 Prolonged hospital stay, patient defines as: Patient does not want to go back to the hospital and she does not want to be kept alive on 10/12/2020 Prolonged long-term stay, patient defines as: Patient does not want to go to a long-term 10/12/2020 Prolonged mechanical ventilation, patient defines as: She does not want any mechanical ventilation 10/12/2020 The patient's cultural or spiritual BELIEFS that may affect health care decisions: Baptism bertha is important to her 10/22/2021 Baptism bertha is important to her Source: Content [...] Choices Program 5 minutes spent in direct [id number] discussion Radha rowell CRNP documented in this encounter Plan of Treatment Upcoming Encounters Date Type Department Care Team (Late st Contact Info) Description 05/19/2023 8:30 AM EST Home Visit [facility] [address] [facility] [place] [address] Raquel Lopez RN [address] [facility] [place] [address] 08/30/2023 1:40 PM EDT Office Visit Family [address] [phone] Tomasa Covington MD [address] [place] [address] [place] [address] 10/30/2023 12:45 PM EDT Telemedicine Dermatology [facility] [address] [place] [address] Doyle Osei MD [address] [place] [address] 03/04/2024 1:00 PM EST Office Visit Family Medicine [address] [phone] Ivy Meier MD [address] [place] [address] [place] [phone] Scheduled Orders Name Type Priority Associated Diagnoses [...] D LEVEL ONCE IN A LIFETIME-USE SMARTSET# [id number] Completed 02/15/2019, 08/16/2016, 02/11/2016, Additional history exists [...] Adult Child Health Care Joseph r of Top Distribution Executive [email or web address] Care Teams Cook Chili Relationship Specialty Start Date End Date Ivy Meier MD [address] [place] [address] [place] [address] PCP - General Family Medicine 01/17/17 documented as of this encounter
--- OUTSIDE RECORDS SUMMARY | 2023-05-12 02:48 | External Medical Summary | Summary of Care ---
Author Name Unknown Organization [facility] Address [address] [place] [address] Phone [phone] Care Team Providers Care Wire Inspector Name Role Phone Ivy Meier MD Primary Care Provide r Reason for Visit * Reason Onset Date Comments Appointment 05/04/2023 Encounter Details Date Type Department Care Team (Late st Contact Info) Description 05/04/2023 Telephone [facility], [place] [facility] [address] [place] [address] [phone] Services, Scheduling [address] [place] [address] Appointment (//) Allergies Active Allergy Reactions Criticality Noted Date Comments Naproxen 01/06/2001 Rash localized to forearms and flushing Niacin 11/27/2000 Rash localized to forearms documented as of this encounter (statuses as of 05/04/2023) Medications Medication Sig Dispensed Refills Start Date End Date Status DORZOLAMIDE-TIMOLOL 2-0.5 % OP SOLN one drop in each eye twice a day 0 Active Vitamin D, Cholecalciferol, 1000 units CAPS Take by mouth. 0 Active Cyanocobalamin (VITAMIN B 12) 100 MCG lozenge [...] Active Levothyroxine Sodium 100 MCG Oral Tablet (Levoxyl)Indications: Postsurgical hypothyroidism Take 1 Tablet by mouth in [...] 02/28/2023 Active dexAMETHasone 0.5 MG/5ML Oral Solution (Decadron)Indications :Mucous membrane pemphigoid 5 ml twice daily as needed during flares of mouth ulcers 240 mL 0 03/22/2023 Active predniSONE 10 MG Oral Tablet (Deltasone)Indication s:Mucous membrane pemphigoid Take 1/2 to 1 tablet by mouth in the morning with food 90 Tablet 1 04/10/2023 Active Ferrous Sulfate 325 (65 Fe) MG Oral Tablet (Feosol) Take 1 Tablet by mouth daily with breakfast. 90 Tablet 1 04/10/2023 Active Linzess 145 MCG Oral Capsule (linaCLOtide)Indicati ons:Slow transit constipation Take 1 Capsule by mouth daily before breakfast. 90 Capsule 1 04/10/2023 Active Omeprazole 20 MG Oral Capsule Delayed Release (PriLOSEC) TAKE ONE CAPSULE BY MOUTH EVERY DAY ONE hour BEFORE first meal of THE DAY 30 Capsule 5 04/09/2023 Active documented as of this encounter (statuses as of 05/04/2023) Active Problems Problem Noted Date Diagnosed Date [...] worse along with may be little cellulitis. [facility] nurse case technician saw the patient yesterday and stated that [...] for a possible early cellulitis. Her nurse case technician will call in checkup with her later [...] as of this encounter (statuses as of 05/04/2023) Resolved Problems Problem Noted Date Diagnosed Date [...] as of this encounter (statuses as of 05/04/2023) Immunizations Name Administration Dates Next Due COVID-19 mRNA, LNP-s, No Pre serve, 2-Dose Series (Pfizer) 06/19/2020,05/29/2020 Covid-19 Adenovirus, [place] 1 Vector, 2-dose Series, PF (AstraZeneca) 02/07/2022,04/01/2021 [...] encounter Miscellaneous Notes * Telephone Encounter - Faby Pandey OSA - 05/04/2023 12:53 PM EST Request to r/s the cx appt form weather earlier this week I found 05/09@430 and called and Milagro wasagreeable documented in this encounter Plan of Treatment Upcoming Encounters Date Type Department Care Team (Late st Contact Info) Description 05/09/2023 4:30 PM EST Telemedicine [facility], [facility] [address] [facility] [place] [address] Radha Marks CRNP [address] [facility] [place] [address] Glory Glez [facility] [address] [place] [address] [place] [phone] 05/19/2023 8:30 AM EST Home Visit [facility], [facility] [address] [facility] [place] [address] Raquel Lopez RN [address] [facility] [place] [address] 08/30/2023 1:40 PM EDT Office Visit Family [address] [place] [phone] Tomasa Covington MD [address] [place] [address] [place] [address] 10/30/2023 12:45 PM EDT Telemedicine Dermatology [facility] [address] [facility] [place] [address] Doyle Osei MD [address] [place] [address] 03/04/2024 1:00 PM EST Office Visit Family Medicine [address] [place] [phone] Ivy Meier MD [address] [place] [address] [place] [address] Health Maintenance Due Date Last Done Comments [...] D LEVEL ONCE IN A LIFETIME-USE SMARTSET# [id number] Completed 02/15/2019, 08/16/2016, 02/11/2016, Additional history exists [...] Adult Child Health Care Joseph r of Oxidation Engineer [email or web address] Care Teams Wire Inspector Relationship Specialty Start Date End Date Ivy Meier MD [address] [place] [address] [place] [phone] PCP - General Family Medicine 9/26/17 documented as of this encounter
--- OUTSIDE RECORDS SUMMARY | 2023-05-12 02:48 | External Medical Summary | Summary of Care ---
Author Name Unknown Organization [facility] Address [address] [place] [address] Phone [phone] Care Team Providers Care Superintendent Pressure Name Role Phone Ivy Meier MD Primary Care Provide r Encounter Details Date Type Department Care Team (Late st Contact Info) Description 04/28/2023 2:45 PM EST Telemedicine Dermatology [facility] [address] [facility] [place] [address] Doyle Osei MD [address] [facility] [place] [address] Mucous membrane pemphigoid*; Encounter for therapeutic drug monitoring Allergies Active Allergy Reactions Criticality Noted Date Comments Naproxen 01/06/2001 Rash localized to forearms and flushing Niacin 11/27/2000 Rash localized to forearms documented as of this encounter (statuses as of 04/30/2023) Medications Medication Sig Dispensed Refills Start Date [...] 8 ounces of water or juice.. 0 3 Active Famotidine 20 MG Oral Tablet (Pepcid) [...] breakfast or other meds). 90 Tablet 1 3 Active Furosemide 20 MG Oral Tablet (Lasix) Take 1 Tablet by mouth in the morning and 1 Tablet before bedtime. 180 Tablet 1 3 Active Potassium Chloride Eusebia ER 10 MEQ Oral Tablet Extended Release Take 1 Tablet by mouth in the morning. 90 Tablet 1 3 Active dexAMETHasone 0.5 MG/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 5 ml twice daily as needed during flares of mouth ulcers 240 mL 0 3 Active predniSONE 10 MG Oral Tablet (Deltasone)Indicati ons:Mucous membrane pemphigoid Take 1/2 to 1 tablet by mouth in the morning with food 90 Tablet 1 3 Active Ferrous Sulfate 325 (65 Fe) MG Oral Tablet (Feosol) Take 1 Tablet by mouth daily with breakfast. 90 Tablet 1 3 Active Linzess 145 MCG Oral Capsule (linaCLOtide)Indica tions:Slow transit constipation Take 1 Capsule by mouth daily before breakfast. 90 Capsule 1 3 Active Omeprazole 20 MG Oral Capsule Delayed Release (PriLOSEC) TAKE ONE CAPSULE BY MOUTH EVERY DAY ONE hour BEFORE first meal of THE DAY 30 Capsule 5 3 Active Cefdinir 300 MG Oral Capsule (Omnicef) Take 1 Capsule by mouth in the morning and 1 Capsule before bedtime. Do all this for 7 days. 14 Capsule 0 4 05/02/19 24 Active Mycophenolate Mofetil 500 MG Oral Tablet (CellCept)Indicatio ns:Mucous membrane pemphigoid 1 tablet daily 90 Tablet 1 3 04/30/19 24 Discontinued documented as of this encounter (statuses as of 04/30/2023) Active Problems Problem Noted Date Diagnosed Date [...] worse along with may be little cellulitis. [facility] nurse case advocate saw the patient yesterday and stated that [...] a possible early cellulitis. Her nurse case advocate will call in checkup with her later [...] as of this encounter (statuses as of 04/30/2023) Resolved Problems Problem Noted Date Diagnosed Date [...] as of this encounter (statuses as of 04/30/2023) Immunizations Name Administration Dates Next Due COVID-19 mRNA, LNP-s, No Pre serve, 2-Dose Series (Pfizer) 06/19/2020,05/29/2020 Covid-19 Adenovirus, [place] 1 Vector, 2-dose Series, PF (AstraZenreadeo) 02/07/2022,04/01/2021 DTaP Dipth/Tet/Acell Pertussis (Infanrix), Peds 07/24/2021 [...] Inj 02/01/2016,01/27/2014,02/19/2013,01/23,03/09/2011,01/27/2010,01/15/2009 ,02/12/2008,02/08/2007,03/13/2006 TD, Preservative Free 05/27/2010(Deferred: Alfonzo nt Refused) TDAP (age 10 and older)(Boostrix) [...] on file documented as of this encounter Progress Notes * Doyle Osei MD - 04/28/2023 2:46 PM EST Patient location: HOME. I was in a hospital or clinic location. After connecting through the telephone, patient was verified with two unique identifiers. Patient (or authorized legal wire rope sales representative) was then informed that this was a Telemedicine visit and being conducted confidentially over secure lines. Methods to assure confidentiality were taken. Patient acknowledged consent and understanding of privacy and security of the Telemedicine visit. The patient agreed to participate. This is an established patient evaluated in my specialty within the past three years: yes Visit Disposition: Routine follow-up Total call duration was 15 minutes. SUBJECTIVE: History of Present Illness: Milagro Mckoy is a 88 year old female seen today for follow up of MMP. Current treatment per patient: prednisone 10mg daily. No longer taking cellcept. Doing well, no current flares. No concerns. Hx myelofibrosis and essential thrombocytosis Hx ovarian CA Hx lymphedema Naproxen and Niacin OBJECTIVE: GEN: Alert, no distress, appears oriented, pleasant and cooperative. SKIN: No examination done due to phone call. 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 The patient and/or person accompanying patient demonstrates understanding of the visit and treatment. Doyle Osei MD Ref: SELF[[id number]] NO STREET ADDRESS AVAILABLE None (office) None (fax) PCP: IVY MEIER [address] [place] [address] [place] [address] [phone] documented in this encounter Plan of Treatment Upcoming Encounters Date Type Department Care Team (Late st Contact Info) Description 05/02/2023 2:30 PM EST [facility]icine [facility] [address] [place] [address] Radha Marks CRNP [address] [place] [address] Glory Glez, Community Health Pit Laborer [address] [place] [address] [place] [address] 05/19/2023 8:30 AM EST [facility] Visit [facility] [address] [place] [address] Raquel Lopez, RN [address] [place] [address] 08/30/2023 1:40 PM EDT Office Visit [address] [phone] Tomasa Covington MD [address] [place] [address] [place] [address] 03/04/2024 1:00 PM EST Office Visit [address] [phone] Ivy Meier MD [address] [place] [address] [place] [address] Health Maintenance Due Date Last Done Comments [...] D LEVEL ONCE IN A LIFETIME-USE SMARTSET# [id number] Completed 02/15/2019, 08/16/2016, 02/11/2016, Additional history exists [...] as of this encounter Visit Diagnoses Diagnosis 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 Care Teams Superintendent Pressure Relationship Specialty Start Date End Date Ivy Meier MD [address] [place] [address] [place] [address] PCP - General Family Medicine 01/17/17 documented as of this encounter
--- OUTSIDE RECORDS SUMMARY | 2023-05-12 02:48 | External Medical Summary | Summary of Care ---
Author Name Unknown Organization [facility] Address [address] [facility] [place] [address] Phone [phone] Care Team Providers Care Maintenance Planning Clerk Name Role Phone Ivy Meier MD Primary Care Provide r Reason for Visit * Reason Onset Date Comments [facility]: Maintenance 04/27/2023 Encounter Details Date Type Department Care Team (Late st Contact Info) Description 04/27/2023 9:45 AM EST Scheduled Telephone [facility], 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 Do all this for 7 days. 14 Capsule 0 04/25/2023 05/02/2023 Active documented as of this encounter (statuses as of 04/27/2023) Active Problems Problem Noted Date Diagnosed Date [...] worse along with may be little cellulitis. [facility] nurse spring encaser saw the patient yesterday and stated that [...] for a possible early cellulitis. Her nurse spring encaser will call in checkup with her later [...] as of this encounter (statuses as of 04/27/2023) Resolved Problems Problem Noted Date Diagnosed Date [...] as of this encounter (statuses as of 04/27/2023) Immunizations Name Administration Dates Next Due COVID-19 mRNA, LNP-s, No Pre serve, 2-Dose Series (Pfizer) 06/19/2020,05/29/2020 Covid-19 Adenovirus, [place] 1 Vector, 2-dose Series, PF (AstraZenCedar Books) 02/07/2022,04/01/2021 DTaP Dipth/Tet/Acell Pertussis (Infanrix), Peds 07/24/2021 [...] Inj 02/01/2016,01/27/2014,02/19/2013,01/23,03/09/2011,01/27/2010,01/15/2009 ,02/12/2008,02/08/2007,03/13/2006 TD, Preservative Free 05/27/2010(Deferred: Christinee nt Refused) TDAP (age 10 and older)(Boostrix) [...] encounter Miscellaneous Notes * Telephone Encounter - Lisa Marques RN - 04/27/2023 1:34 PM EST [facility] Telephonic Nurse Follow-Up Call [facility] Subprogram: Primary Care at Home Follow Up Call Type: 24 hour follow up Acute issue requiring follow-up call: Complicated UTI Objective: 04/11/2023 8:53 AM 04/11/2023 8:40 AM 03/10/2023 2:16 PM 02/28/2023 1:22 PM 02/25/2023 10:36 AM VITALS ACROSS ENCOUNTERS BP 104/52 104/52 108/58 116/62 104/62 Pulse 84 84 84 86 70 Lab Results Component Value Date BLOOD, URINE - [facility] Small (A) 04/25/2023 PROTEIN, URINE - [facility] 30 (A) 04/25/2023 ESTERASE, URINE - [facility] Large (A) 04/25/2023 WBC AUTO - [facility] 26.30 (H) 02/28/2023 WBC, URINE - [facility] 50+ (A) 04/25/2023 NITRITE, URINE - [facility] Positive (A) 04/25/2023 QUANT URINE CULTURE GROWTH (A) 04/25/2023 10,000 to 100,000 colonies/mL Lactose fermenting gram negative bacilli Lab Results Component Value Date WBC AUTO - [facility] 26.30 (H) 02/28/2023 HGB - [facility] 9.8 (L) 02/28/2023 PLATELET AUTO - [facility] 98 (L) 02/28/2023 Lab Results Component Value Date SODIUM - [facility] 133 (L) 02/28/2023 POTASSIUM - [facility] 4.6 02/28/2023 MAGNESIUM - [facility] 2.5 02/28/2023 CO2 - [facility] 25 02/28/2023 CREATININE - [facility] 0.7 02/28/2023 ESTIMATED GLOMERULAR FILTRATION RATE - [facility] 83 02/28/2023 No results found for: "PRO BNP", "LEFT VENTRICULAR EJECTION FRACTION" Remote Patient Monitoring: NONE Oxygen Needs: NO supplemental oxygen needs identified DME Needs: NO DME needs identified Medications: New medication(s) added: cefdinir Subjective: Condition Status: Improvement in symptoms but not at baseline Current Concerns: Spoke with patient states she is having a good day today Urinary sx aren't bothering her to much today She is taking cefdinir currently. She is aware ABX may need to be changed based on urine culture sensitivity Denies fevers,chills,N/V, or pain Prelim culture resulted and + Awaiting urine sensitivities Uses [facility] [place] Disposition: Follow up call scheduled for tomorrow with [facility] Senior Occupational Therapist Future Visits Scheduled: Future Appointments-next 60 days Date/Time Provider Specialty Dept Phone 04/28/2023 2:45 PM Doyle Osei MD Dermatology [phone] 05/02/2023 2:30 PM Glory Glez, Community Health Distillation Operator; Radha Marks CRNP [facility] [phone] 05/19/2023 8:30 AM Raquel Lopez RN [facility] [phone] 08/30/2023 1:40 PM (Arrive by 1:25 PM) Tomasa Covington MD Family Medicine [phone] 03/04/2024 1:00 PM (Arrive by 12:45 PM) Ivy Meier MD Family Medicine [phone] Lisa Marques, DIMPLE documented in this encounter Plan of Treatment Upcoming Encounters Date Type Department Care Team (Late st Contact Info) Description 04/28/2023 10:45 AM EST Scheduled Telephone [facility], [facility] [address] [place] [address] Coordinator, [facility] 132 [facility] [place] [address] 04/28/2023 2:45 PM EST Telemedicine Dermatology [employer] 200 [facility] [place] [address] Doyle Osei MD 200 [facility] [place] [address] 05/02/2023 2:30 PM EST Telemedicine [facility], [facility] 132 [facility] [place] [address] Radha Marks CRNP 132 [facility] [place] [address] Glory Glez, Community Health Distillation Operator [address] [place] [address] [place] [address] 05/19/2023 8:30 AM EST Home Visit [facility], [facility] 132 [facility] [place] [address] Raquel Lopez RN 132 [facility] [place] [address] 08/30/2023 1:40 PM EDT Office Visit [address] [phone] Tomasa Covington MD [address] [place] [address] [place] [address] 03/04/2024 1:00 PM EST Office Visit [address] [phone] Ivy Meier MD [address] [place] [address] [place] [address] Health Maintenance Due Date Last Done Comments Depression Screening 05/22/2021 05/22/2020 COVID-19 Vaccine (3 - Pfizer risk series) 03/07/2022 02/07/2022, 04/01/2021, 06/19/2020, Additional history exists TSH 02/29/2024 02/28/2023, 07/0 10/2022, 09/28/2022, Additional history exists DTaP,Tdap,and Td Vaccines (4 - Td or Tdap) 07/25/2031 07/24/2021, 07/24/2021, 08/20/2012 DXA Scan Discontinued 08/27/2014, 030 07/2012, 03/23/2010, Additional history exists Pneumococcal Vaccine: 65+ Years Completed 02/04/2015, 04/24/2003 *BISPHONATE OR OTHER ACCEPTABLE MEDICATION NEEDED FOR OSTEOPOROSIS (REFER TO SMARTSET #1146) Addressed 11/02/2017 (Not indicated) Overridden with the intention of not completing the topic VITAMIN D LEVEL ONCE IN A LIFETIME-USE SMARTSET# [id number] Completed 02/15/2019, 08/16/2016, 02/11/2016, Additional history exists [...] Adult Child Health Care Joseph r of [employer] Helper [email or web address] et Care Teams Maintenance Planning Clerk Relationship Specialty Start Date End Date Ivy Meier MD [address] [place] [address] [place] [phone] PCP - General Family Medicine 01/17/17 documented as of this encounter
--- OUTSIDE RECORDS SUMMARY | 2023-05-12 02:48 | External Medical Summary | Summary of Care ---
Author Name Unknown Organization [facility] Address [address] [place] [address] Phone [phone] Care Team Providers Care Vending Machine Assembler Name Role Phone Ivy Meier MD Primary Care Provide r Reason for Visit * Reason Onset Date Comments [facility]: Maintenance 04/25/2023 Encounter Details Date Type Department Care Team (Late st Contact Info) Description 04/25/2023 Telephone [facility], [facility] 132 [facility] [place] [address] [facility], Nurse [facility] 132 [place] [address] [facility]: Maintenance Allergies Active Allergy Reactions Criticality Noted Date Comments Naproxen 01/06/2001 Rash localized to forearms and flushing Niacin 11/27/2000 Rash localized to forearms documented as of this encounter (statuses as of 04/25/2023) Medications Medication Sig Dispensed Refills Start Date [...] as of this encounter (statuses as of 04/25/2023) Active Problems Problem Noted Date Diagnosed Date [...] worse along with may be little cellulitis. [facility] nurse case maker saw the patient yesterday and stated that [...] a possible early cellulitis. Her nurse case maker will call in checkup with her later [...] as of this encounter (statuses as of 04/25/2023) Resolved Problems Problem Noted Date Diagnosed Date [...] as of this encounter (statuses as of 04/25/2023) Immunizations Name Administration Dates Next Due COVID-19 mRNA, LNP-s, No Pre serve, 2-Dose Series (Pfizer) 06/19/2020,05/29/2020 Covid-19 Adenovirus, [place] 1 Vector, 2-dose Series, PF (AstraZenCloudfind) 02/07/2022,04/01/2021 DTaP Dipth/Tet/Acell Pertussis (Infanrix), Peds 07/24/2021 [...] encounter Miscellaneous Notes * Telephone Encounter - Tahmina Ye RN - 04/25/2023 10:53 AM EST In Basket Follow up Call to patient to see if she was able to obtain urine specimen and did she need someone to pick itup for the lab. She said she obtained the specimen and DIMPLE Fagan took it to the lab. I told her we will watch for the results and update her. She said to call her daughter Suzy with the results. Her number is on the chart. Scheduled for phone call for culture results. Routed to care team Tahmina Ye. DIMPLE [facility] RN [phone] documented in this encounter Plan of Treatment Upcoming Encounters Date Type Department Care Team (Late st Contact Info) Description 04/25/2023 4:00 PM EST Home Visit [facility], [facility] [address] [place] [address] Raquel Lopez RN 132 [facility] [place] [address] Urinary frequency 04/27/2023 9:45 AM EST Scheduled Telephone [facility], [facility] [address] [place] [address] Coordinator, [facility] 132 [facility] [place] [address] 04/28/2023 2:45 PM EST Telemedicine Dermatology [facility] [place] [address] [facility] [place] [address] Doyle Osei MD 200 [facility] [place] [address] 05/02/2023 2:30 PM EST Telemedicine [facility], [facility] 132 [facility] [place] [address] Radha Marks CRNP [address] [place] [address] Glory Glez Community Health Quick Service Technician [address] [place] [address] [place] [address] 05/19/2023 8:30 AM EST Home Visit [facility], [facility] [address] [place] [address] Raquel Lopez, DIMPLE [address] [place] [address] 08/30/2023 1:40 PM EDT Office Visit [address] [phone] Tomasa Covington MD [address] [place] [address] [place] [address] 03/04/2024 1:00 PM EST Office Visit [address] [phone] Ivy Meier MD [address] [place] [address] [place] [address] Health Maintenance Due Date Last Done Comments Depression Screening 05/22/2021 05/22/2020 COVID-19 Vaccine (3 - Pfizer risk series) 03/07/2022 02/07/2022, 04/01/2021, 06/19/2020, Additional history exists TSH 02/29/2024 02/28/2023, 070 10/2022, 09/28/2022, Additional history exists DTaP,Tdap,and Td [...] D LEVEL ONCE IN A LIFETIME-USE SMARTSET# [id number] Completed 02/15/2019, 08/16/2016, 02/11/2016, Additional history exists [...] Adult Child Health Care Joseph r of [place] [email or web address] et Care Teams Vending Machine Assembler Relationship Specialty Start Date End Date Ivy Meier MD [address] [place] [address] [place] [phone] PCP - General Family Medicine 01/17/17 documented as of this encounter
--- OUTSIDE RECORDS SUMMARY | 2023-05-12 02:48 | External Medical Summary | Summary of Care ---
Author Name Unknown Organization [facility] Address [address] [place] [address] Phone [phone] Care Team Providers Care Band Bias Machine Operator Name Role Phone Ivy Meier MD Primary Care Provide r Reason for Visit * Reason Comments [facility]: Acute Encounter Details Date Type Department Care Team (Late st Contact Info) Description 04/25/2023 4:00 PM EST Home Visit [facility], [facility] [place] [address] Raquel Lopez, RN [facility] [place] [address] Urinary frequency Allergies Active Allergy Reactions Criticality Noted Date [...] worse along with may be little cellulitis. [facility] nurse correctional case manager saw the patient yesterday and stated that [...] for a possible early cellulitis. Her nurse correctional case manager will call in checkup with her later [...] serve, 2-Dose Series (Pfizer) 06/19/2020,05/29/2020 Covid-19 Adenovirus, [place] 1 Vector, 2-dose Series, PF (AstraZenPrinciple Power) 02/07/2022,04/01/2021 DTaP Dipth/Tet/Acell Pertussis (Infanrix), Peds 07/24/2021 [...] as of this encounter Progress Notes * Raquel Lopez, DIMPLE - 04/25/2023 11:43 AM EST Patient with UTI symptoms. Clean catch urine obtained. Dropped off at [facility]. Aware of ABT sent to pharmacy by Radha ANN- daughter to worm picker. documented in this encounter Plan of Treatment Upcoming Encounters Date Type Department Care Team (Late st Contact Info) Description 04/27/2023 9:45 AM EST Scheduled Telephone [facility], [address] [place] [address] Coordinator, [facility] 132 [facility] [place] [address] 04/28/2023 2:45 PM EST Telemedicine Dermatology [facility] [address] [place] [address] Doyle Osei MD [address] [place] [address] 05/02/2023 2:30 PM EST Telemedicine [facility], [facility] 132 [facility] [place] [address] Radha Marks CRNP 132 [facility] [place] [address] Glory Glez Community Health Die Cast Technician [address] [place] [address] [place] [address] 05/19/2023 8:30 AM EST Home Visit [facility], [facility] 132 [facility] [place] [address] Raquel Lopez RN 132 [facility] [place] [address] 08/30/2023 1:40 PM EDT [address] [phone] Tomasa Covington MD [address] [place] [address] [place] [address] 03/04/2024 1:00 PM EST Office Visit [address] [place] [phone] Ivy Meier MD [address] [place] [address] [place] [address] Pending Results Name Type Priority Associated Diagnoses Date /Time URINALYSIS, REFLEX TO CULTURE (NOT FOR NEUTROPENIC PATIENTS) Lab Routine Urinary frequency 04/25/2023 9:49 AM EST URINALYSIS, REFLEX TO CULTURE Lab Routine Urinary frequency 04/25/2023 9:49 AM EST Scheduled Orders Name Type Priority Associated Diagnoses Orde r Schedule URINALYSIS, REFLEX TO CULTUR E (CUP ONLY) Lab Routine Urinary frequency Ordered: 04/25/2023 Health Maintenance Due Date Last Done Comments [...] D LEVEL ONCE IN A LIFETIME-USE SMARTSET# [id number] Completed 02/15/2019, 08/16/2016, 02/11/2016, Additional history exists [...] as of this encounter Visit Diagnoses Diagnosis Urinary frequency documented in this encounter Additional Health Concerns Infection Onset Date Last Indicated Resolved Time COVID-19 (confirmed) 08/10/2021 08/10/2021 documented as of this encounter Advance Directives Healthcare Agents on File Name Relationship Healthcare Agent Relationship Communication Suzy Prado Adult Child Health Care Joseph r of Commodity Industry Analyst [email or web address] Care Teams Band Bias Machine Operator Relationship Specialty Start Date End Date Ivy Meier MD [address] [place] [address] [place] [phone] PCP - General Family Medicine 01/17/17 documented as of this encounter
--- OUTSIDE RECORDS SUMMARY | 2023-05-12 02:48 | External Medical Summary | Summary of Care ---
Author Name Unknown Organization [facility] Address [address] [place] [address] Phone [phone] Care Team Providers Care Quill Cleaning Machine Operator Name Role Phone Ivy Meier MD Primary Care Provide r Encounter Details Date Type Department Care Team (Late st Contact Info) Description 04/25/2023 Telephone [facility], [facility] [address] [place] [address] Radha Marks CRNP [address] [facility] [place] [address] Allergies Active Allergy Reactions Criticality Noted Date [...] worse along with may be little cellulitis. [facility] nurse caseworker intake saw the patient yesterday and stated that [...] for a possible early cellulitis. Her nurse caseworker intake will call in checkup with her later [...] serve, 2-Dose Series (Pfizer) 06/19/2020,05/29/2020 Covid-19 Adenovirus, [place] 1 Vector, 2-dose Series, PF (AstraZeneca) 02/07/2022,04/01/2021 [...] Telephone Encounter - Radha Marks CRNP - 04/25/2023 8:39 AM EST TT with RNCM, pt with UTI symptoms. UA with reflex cx ordered. Cefdinir sent to pharmacy for pt to start after she gives urine sample. Serum creatinine: 0.7 mg/dL 02/28/23 1402 Estimated creatinine clearance: 32.6 mL/min documented in this encounter Plan of Treatment Upcoming Encounters Date Type Department Care Team (Late st Contact Info) Description 04/25/2023 4:00 PM EST Home Visit [facility], [facility] [address] [place] [address] Raquel Lopez, DIMPLE 132 [facility] [place] [address] 04/28/2023 2:45 PM EST Telemedicine Dermatology [facility] [address] [facility], [place] [address] Doyle Osei MD [address] [place] [address] 05/02/2023 2:30 PM EST Telemedicine [facility], [facility] [address] [place] [address] Radha Marks CRNP 132 [facility] [place] [address] Glory Glez Community Health Correction Officer [address] [place] [address] [place] [address] 05/19/2023 8:30 AM EST Home Visit [facility], [facility] [address] [place] [address] Raquel Lopez, DIMPLE [address] [place] [address] 08/30/2023 1:40 PM EDT Office Visit [address] [place] [phone] Tomasa Covington MD [address] [place] [address] [place] [address] 03/04/2024 1:00 PM EST Office Visit [address] [place] [phone] Ivy Meier MD [address] [place] [address] [place] [address] Health Maintenance Due Date Last Done Comments [...] D LEVEL ONCE IN A LIFETIME-USE SMARTSET# [id number] Completed 02/15/2019, 08/16/2016, 02/11/2016, Additional history exists [...] Adult Child Health Care Joseph r of [employer] Fitness Instructor [email or web address] Care Teams Quill Cleaning Machine Operator Relationship Specialty Start Date End Date Ivy Meier MD [address] [place] [address] [place] [phone] PCP - General Family Medicine 01/17/17 documented as of this encounter
--- OUTSIDE RECORDS SUMMARY | 2023-05-12 02:48 | External Medical Summary | Summary of Care ---
Author Name Unknown Organization [facility] Address [address] [facility] [place] [address] Phone [phone] Care Team Providers Care Welder Assembler Name Role Phone Ivy Meier MD Primary Care Provide r Reason for Visit * Reason Onset Date Comments [facility]: Maintenance 04/28/2023 Encounter Details Date Type Department Care Team (Late st Contact Info) Description 04/28/2023 10:45 AM EST Scheduled Telephone [facility], [facility] [address] [facility] [place] [address] Coordinator, [facility] [address] [facility] [place] [address] Allergies Active Allergy Reactions Criticality Noted Date Comments Naproxen 01/06/2001 Rash localized to forearms and flushing Niacin 11/27/2000 Rash localized to forearms documented as of this encounter (statuses as of 04/28/2023) Medications Medication Sig Dispensed Refills Start Date [...] as of this encounter (statuses as of 04/28/2023) Active Problems Problem Noted Date Diagnosed Date [...] worse along with may be little cellulitis. [facility] nurse manager case management saw the patient yesterday and stated that [...] for a possible early cellulitis. Her nurse manager case management will call in checkup with her later [...] as of this encounter (statuses as of 04/28/2023) Resolved Problems Problem Noted Date Diagnosed Date [...] as of this encounter (statuses as of 04/28/2023) Immunizations Name Administration Dates Next Due COVID-19 mRNA, LNP-s, No Pre serve, 2-Dose Series (Pfizer) 06/19/2020,05/29/2020 Covid-19 Adenovirus, [place] 1 Vector, 2-dose Series, PF (AstraZenBBC Easy) 02/07/2022,04/01/2021 DTaP Dipth/Tet/Acell Pertussis (Infanrix), Peds 07/24/2021 [...] encounter Miscellaneous Notes * Telephone Encounter - Rain Chandra, RN - 04/28/2023 12:25 PM EST Images from the original note were not included. [facility] Telephonic Nurse Follow-Up Call [facility] Subprogram: Primary Care at Home Follow Up Call Type: 48 hour follow up Acute issue requiring follow-up [...] Positive (A) 04/25/2023 QUANT URINE CULTURE GROWTH >100,000 colonies/mL Escherichia coli (A) 04/25/2023 Lab Results Component Value Date WBC AUTO [...] DME needs identified Medications: New medication(s) added: Cefdinir (Omnicef) BID x 7 days Subjective: Condition Status: [facility] Current Concerns: [facility], message left for callback to [facility], aware to complete full prescription of antbx Call if any new or worsening urinary syptoms Disposition: Issue resolved. All appropriate follow up scheduled. Future Visits Scheduled: Future Appointments-next 60 days Date/Time Provider Specialty Dept Phone 04/28/2023 2:45 PM Doyle Osei MD Dermatology [phone] 05/02/2023 2:30 PM Glory Glez Community Health Importer Exporter; Radha Marks CRNP [facility] [phone] 05/19/2023 8:30 AM Raquel Lopez RN [facility] [phone] 08/30/2023 1:40 PM (Arrive by 1:25 PM) Tomasa Covington MD Family Medicine [phone] 03/04/2024 1:00 PM (Arrive by 12:45 PM) Ivy Meier MD Family Medicine [phone] Rain Chandra, RN documented in this encounter Plan of Treatment Upcoming Encounters Date Type Department Care Team (Late st Contact Info) Description 04/28/2023 2:45 PM EST Telemedicine Dermatology [facility] [address] [facility] [place], [place] [address] Doyle Osei MD 200 [facility], [place] [address] Arrived 05/02/2023 2:30 PM EST Telemedicine [facility], [facility] [address] [place] [address] Radha Marks CRNP [address] [place] [address] Glory Glez Community Health Importer Exporter [address] [place] [address] [place] [address] 05/19/2023 8:30 AM EST Home Visit [facility], [facility] [address] [place] [address] Raquel Lopez, DIMPLE [address] [place] [address] 08/30/2023 1:40 PM EDT Office Visit [address] [phone] Tomasa Covington MD [address] [place] [address] [place] [address] 03/04/2024 1:00 PM EST Office Visit [address] [phone] Ivy Meier MD [address] [place] [address] [place] [address] Health Maintenance Due Date Last Done Comments [...] D LEVEL ONCE IN A LIFETIME-USE SMARTSET# [id number] Completed 02/15/2019, 08/16/2016, 02/11/2016, Additional history exists [...] Adult Child Health Care Joseph r of Medical Staffing Coordinator [email or web address] Care Teams Welder Assembler Relationship Specialty Start Date End Date Ivy Meier MD [address] [place] [address] [place] [phone] PCP - General Family Medicine 01/17/17 documented as of this encounter
--- OUTSIDE RECORDS SUMMARY | 2023-05-12 02:49 | External Medical Summary | Summary of Care ---
Author Name Unknown Organization [facility] Address [address] [place] [address] Phone [phone] Care Team Providers Care Slope Runner Name Role Phone Ivy Meier MD Primary Care Provide r Reason for Visit * Reason Onset Date Comments Medication Refill 04/08/2023 Encounter Details Date Type Department Care Team (Late st Contact Info) Description 04/08/2023 Refill Dermatology [facility] [place] [address] [place] [address] Ramona Thompson MD [address] [place] [address] Mucous membrane pemphigoid Allergies Active Allergy Reactions Criticality Noted Date Comments Naproxen 01/06/2001 Rash localized to forearms and flushing Niacin 11/27/2000 Rash localized to forearms documented as of this encounter (statuses as of 04/10/2023) Medications Medication Sig Dispensed Refills Start Date [...] 04/10/2023 Active predniSONE 10 MG Oral Tablet (Deltasone)Indicati [...] THE DAY 30 Capsule 5 04/09/2023 Active Mycophenolate Mofetil 500 MG Oral Tablet (CellCept)Indicatio ns:Mucous membrane pemphigoid 1 tablet daily 90 Tablet 1 11/17/2022 3 Discontinue d(Refill) documented as of this encounter (statuses as of 04/10/2023) Active Problems Problem Noted Date Diagnosed Date [...] worse along with may be little cellulitis. [facility] nurse correctional case manager saw the patient [...] as of this encounter (statuses as of 04/10/2023) Resolved Problems Problem Noted Date Diagnosed Date [...] as of this encounter (statuses as of 04/10/2023) Immunizations Name Administration Dates Next Due COVID-19 mRNA, LNP-s, No Pre serve, 2-Dose Series (Pfizer) 06/19/2020,05/29/2020 Covid-19 Adenovirus, [place] 1 Vector, 2-dose Series, PF (AstraZeneca) 02/07/2022,04/01/2021 [...] encounter Miscellaneous Notes * Telephone Encounter - Ramona Thompson MD - 04/10/2023 12:45 PM EST Signed Prescriptions: Disp Refills Mycophenolate Mofetil 500 MG Oral Tablet (*90 Tab*1 Si tablet daily Authorizing Provider: RAMONA THOMPSON * Telephone Encounter - Renetta Villa LPN - 04/10/2023 12:38 PM ESTPending Prescriptions: Disp Refills Mycophenolate Mofetil 500 MG Oral Tablet (*90 Tab*1 Si tablet daily * Telephone Encounter - Renetta Villa LPN - 04/10/2023 12:37 PM EST Pending Prescriptions: Disp Refills Mycophenolate Mofetil 500 MG Oral Tablet *90 Tab*1 Si tablet daily 10/07/2020 (in office), 11/17/2022 (telemedicine) Visit date not found If no future appointments scheduled, and last appointment is greater than a year ago, please schedule patient for a follow-up appointment Last date the medication was ordered: 11/17/22 Patient Phone Numbers Labs: Lab Results Component Value Date/Time CREAT 0.7 02/28/2023 02:02 PM CREAT 0.65 06/22/2021 12:00 AM CREAT 0.8 05/22/2020 11:33 AM CREAT 0.7 08/06/1996 10:20 AM POTASSIUM 4.6 02/28/2023 02:02 PM POTASSIUM 4.2 06/22/2021 12:00 AM POTASSIUM 4.3 05/22/2020 11:33 AM POTASSIUM 4.5 08/06/1996 10:20 AM TSH 5.85 (H) 02/28/2023 02:10 PM TSH 5.351 (A) 06/22/2021 12:00 AM TSH 11.40 (H) 05/22/2020 11:33 AM LDLCALC 92 02/04/2015 09:45 AM LDLCALC 140. (H) 08/06/1996 10:20 AM LDLDIRECT 133 (H) 02/11/2016 10:57 AM ALT 13 10/28/2022 10:53 AM ALT 11 05/22/2020 11:33 AM HGBA1C 5.5 02/19/2013 11:03 AM documented in this encounter Plan of Treatment Upcoming Encounters Date Type Department Care Team (Late st Contact Info) Description 04/14/2023 10:00 AM EST Home Visit [facility], [facility] [address] [place] [address] Raquel Lopez RN 132 [place] [address] 05/02/2023 2:30 PM EST Telemedicine [facility], [facility] [address] [place] [address] Radha Marks CRNP [address] [place] [address] Glory Glez, Community Health Powerhouse Electrician Apprentice [address] [place] [address] [place] [address] 08/30/2023 1:40 PM EDT Office [address] [place] [phone] Tomasa Covington MD [address] [place] [address] [place] [address] 03/04/2024 1:00 PM EST Office Visit [address] [place] [phone] Ivy Meier MD [address] [place] [address] [place] [address] Health Maintenance Due Date Last Done Comments [...] D LEVEL ONCE IN A LIFETIME-USE SMARTSET# [id number] Completed 02/15/2019, 08/16/2016, 02/11/2016, Additional history exists [...] this encounter Visit Diagnoses Diagnosis 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 et Care Teams Slope Runner Relationship Specialty Start Date End Date Ivy Meier MD [address] [place] [address] [place] [phone] PCP - General Family Medicine 01/17/17 documented as of this encounter
--- OUTSIDE RECORDS SUMMARY | 2023-05-12 02:49 | External Medical Summary ---
Author Name Unknown Address Unknown Organization K01:[facility] - [address] [facility] [address] Laboratory Report Ordering Provider Test Date Status OLIMPIA WILKINSON 04/25/2023 09:49:12 Final Observation Date Value Abnormality Reference (Units ) Status Color of Urine by Auto 04/25/2023 09:49:12 Dark Yellow Colorless, Light Yellow, Yellow, Dark Yellow Final Clarity, Urine 04/25/2023 09:49:12 Cloudy Abnormal Clear Final Glucose [Mass/volume] in Urine by Automated test strip 04/25/2023 09:49:12 Negative Negative (mg/dL) Final Bilirubin.total [Presence] in Urine by Automated test strip 04/25/2023 09:49:12 Moderate Abnormal Negative Final Ketones [Mass/volume] in Urine by Automated test strip 04/25/2023 09:49:12 Negative Negative (mg/dL) Final Specific gravity, Urine 04/25/2023 09:49:12 1.015 1.003-1.030 Final Hemoglobin [Presence] in Urine by Automated test strip 04/25/2023 09:49:12 Small Abnormal Negative Final pH, Urine 04/25/2023 09:49:12 7.0 5.0-7.5 (Units) Final Protein [Mass/volume] in Urine by Automated test strip 04/25/2023 09:49:12 30 Abnormal Negative (mg/dL) Final Urobilinogen [Mass/volume] in Urine by Automated test strip 04/25/2023 09:49:12 >=8.0 Abnormal Normal (mg/dL) Final Nitrite [Presence] in Urine by Automated test strip 04/25/2023 09:49:12 Positive Abnormal Negative Final Leukocyte esterase [Presence] in Urine by Automated test strip 04/25/2023 09:49:12 Large Abnormal Negative Final RBC, Urine 04/25/2023 09:49:12 10-19 Abnormal 0-2 (/HPF) Final WBC, Urine 04/25/2023 09:49:12 50+ Abnormal 0-2 (/HPF) Final Bacteria [#/area] in Urine sediment by Microscopy high power field 04/25/2023 09:49:12 51-100 Abnormal 0-25 (/HPF) Final Epithelial cells.renal [#/area] in Urine sediment by Microscopy high power field 04/25/2023 09:49:12 1-4 Abnormal None (/HPF) Final CULTURE, URINE - [facility] 04/25/2023 09:49:12 Final Quantitative urine culture t o be performed Performing Location [facility] - [address] [facility] [address]
--- OUTSIDE RECORDS SUMMARY | 2023-05-12 02:49 | External Medical Summary | Summary of Care ---
Author Name Unknown Organization [facility] Address [address] [place] [address] Phone [phone] Care Team Providers Care Truck Trailer Mechanic Name Role Phone Ivy Meier MD Primary Care Provide r Reason for Visit * Reason Onset Date Comments Medication Refill 04/08/2023 Encounter Details Date Type Department Care Team (Late st Contact Info) Description 04/08/2023 Refill Family Medicine [address] [phone] Ivy Meier MD [address] [place], [place] [address] [place] [address] Slow transit constipation Allergies Active Allergy Reactions Criticality Noted Date [...] of water or juice.. 0 09/26/2022 Active Mycophenolate Mofetil 500 MG Oral Tablet (CellCept)Indicatio ns:Mucous membrane pemphigoid 1 tablet daily 90 Tablet 1 11/17/2022 Active Famotidine 20 MG Oral Tablet (Pepcid) [...] THE DAY 30 Capsule 5 04/09/2023 Active Ferrous Sulfate 325 (65 Fe) MG Oral Tablet (Feosol) Take 1 Tab by mouth daily with breakfast. 30 Tab 5 05/26/2020 3 Discontinue d(Refill) Linzess 145 MCG Oral Capsule (linaCLOtide)Indica tions:Slow transit constipation Take 1 Capsule by mouth daily before breakfast. 90 Capsule 1 01/18/2023 3 Discontinue d(Refill) documented as of this [...] worse along with may be little cellulitis. [facility] nurse case consultant saw the patient yesterday and stated that [...] a possible early cellulitis. Her nurse case consultant will call in checkup with her later [...] mRNA, LNP-s, No Pre serve, 2-Dose Series ([employer]) 06/19/2020,05/29/2020 Covid-19 Adenovirus, [place] 1 Vector, 2-dose Series, PF (AstraZeneca) 02/07/2022,04/01/2021 [...] encounter Miscellaneous Notes * Telephone Encounter - Ivy Meier MD - 04/10/2023 9:38 AM EST Signed Prescriptions: Disp Refills Ferrous Sulfate 325 (65 Fe) MG Oral Tablet*90 Tab*1 Sig: Take 1 Tablet by mouth daily with breakfast. Authorizing Provider: IVY MEIER Linzess 145 MCG Oral Capsule (linaCLOtide) 90 Cap*1 Sig: Take 1 Capsule by mouth daily before breakfast. Authorizing Provider: IVY MEIER * [facility]10[facility] 9:07 AM ESTPending Prescriptions: Disp Refills Ferrous Sulfate 325 (65 Fe) MG Oral Tablet*90 Tab*1 Sig: Take 1 Tablet by mouth daily with breakfast. Linzess 145 MCG Oral Capsule (linaCLOtide) 90 Cap*1 Sig: Take 1 Capsule by mouth daily before breakfast. * Telephone Encounter - Gino Somers [facility] - 04/10/2023 9:07 AM EST [facility] is currently not authorized to approve refills for the pended medication(s) per refill protocol. Please approve if appropriate. Thank You, Gino Hannon [facility] Clinical Pharmacist [facility] Services ([facility]) (formerly Telepharmacy) 04/10/2023, 9:07 AM * Telephone Encounter - Gino Somers [facility] - 04/10/2023 9:06 AM EST Pending Prescriptions: Disp Refills Ferrous Sulfate 325 (65 Fe) MG Oral Table*30 Tab*5 Sig: Take 1 Tablet by mouth daily with breakfast. Linzess 145 MCG Oral Capsule (linaCLOtide)90 Cap*1 Sig: Take 1 Capsule by mouth daily before breakfast. Last Visit: 02/28/2023 (in office), Visit date not found (telemedicine) Next Visit: 08/30/2023 If no future appointments scheduled, and last appointment is greater than a year ago, please schedule patient for a follow-up appointment Last date the medication was ordered: 05/26/20, 01/18/23 (proactive refill) Pharmacy: [facility], [address] [place] Is this request for a controlled substance? No Urine Drug Screen:No results found. However, due to the size of the patient record, not all encounters were searched. Please check Results Review for a complete set of results. Patient Phone Numbers Labs: Lab Results Component [...] 10:00 AM EST [facility] Visit [facility], [facility] [address] [place] [address] Raquel Lopez RN [address] [place] [address] 05/02/2023 2:30 PM EST Telemedicine [facility] [place], [facility] [address] [place] [address] Radha Marks CRNP [address] [place] [address] Glory Glez Community Health Integrated Pest Management Technician [address] [place] [address] [place] [address] 08/30/2023 1:40 PM EDT Office Visit [address] [place] [phone] Tomasa Covington MD [address] [place] [address] [place] [address] 03/04/2024 1:00 PM EST Office Visit [address] [phone] Ivy Meier MD [address] [place] [address] [place] [address] Health Maintenance Due Date Last Done Comments [...] D LEVEL ONCE IN A LIFETIME-USE SMARTSET# [id number] Completed 02/15/2019, 08/16/2016, 02/11/2016, Additional history exists [...] as of this encounter Visit Diagnoses Diagnosis Slow transit constipation documented in this encounter Additional Health Concerns Infection Onset Date Last Indicated Resolved Time COVID-19 (confirmed) 08/10/2021 08/10/2021 documented as of this encounter Advance Directives Healthcare Agents on File Name Relationship Healthcare Agent Relationship Communication Suzy Prado Adult Child Health Care Joseph r of Printer Slotter Operator [email or web address] Care Teams Truck Trailer Mechanic Relationship Specialty Start Date End Date Ivy Meier MD [address] [place] [address] [place] [address] PCP - General Family Medicine 01/17/17 documented as of this encounter
--- OUTSIDE RECORDS SUMMARY | 2023-05-12 02:49 | External Medical Summary | Summary of Care ---
Author Name Unknown Organization [facility] Address [address] [place] [address] Phone [phone] Care Team Providers Care Biochemist Name Role Phone Ivy Meier MD Primary Care Provide r Reason for Visit * Reason Onset Date Comments Medication Refill 04/08/2023 Encounter Details Date Type Department Care Team (Late st Contact Info) Description 04/08/2023 Refill Dermatology [address] [place] [address] Ramona Nichols MD [address] [place] [phone] Mucous membrane pemphigoid Allergies Active Allergy Reactions [...] with food 90 Tablet 1 04/10/2023 Active Omeprazole 20 MG Oral Capsule Delayed Release (PriLOSEC) TAKE ONE CAPSULE BY MOUTH EVERY DAY ONE hour BEFORE first meal of THE DAY 30 Capsule 5 04/09/2023 Active Ferrous Sulfate 325 (65 Fe) MG Oral Tablet (Feosol) Take 1 Tab by mouth daily with breakfast. 30 Tab 5 05/26/2020 3 Discontinue d(Refill) predniSONE 10 MG Oral Tablet (Deltasone)Indicati ons:Mucous membrane pemphigoid Take 1/2 to 1 tablet by mouth in the morning with food 90 Tablet 1 07/11/2022 3 Discontinue d(Refill) Mycophenolate Mofetil 500 MG Oral Tablet (CellCept)Indicatio ns:Mucous membrane pemphigoid 1 tablet daily 90 Tablet 1 11/17/2022 3 Discontinue d(Refill) Linzess 145 MCG Oral [...] with may be little cellulitis. [facility] nurse renal case manager saw the patient yesterday and [...] for a possible early cellulitis. Her nurse renal case manager will call in checkup with [...] serve, 2-Dose Series (Pfizer) 06/19/2020,05/29/2020 Covid-19 Adenovirus, [place] 1 Vector, 2-dose Series, PF (AstraZeneca) 02/07/2022,04/01/2021 [...] encounter Miscellaneous Notes * Telephone Encounter - Meenakshi Espitia OSA - 04/10/2023 2:12 PM EST Called patient and scheduled appointment. * Telephone Encounter - Ramona Nichols MD - 04/10/2023 8:29 AM EST Xavier appt, can be phone, any provider regarding refills and check up of pemphigoid. Patient Phone Numbers * Telephone Encounter - Ramona Nichols MD - 04/10/2023 8:28 AM ESTSigned Prescriptions: Disp Refills predniSONE 10 MG Oral Tablet (Deltasone) 90 Tab*1 Sig: Take 1/2 to 1 tablet by mouth in the morning with food Authorizing Provider: RAMONA NICHOLS * Telephone Encounter - Morena Abdul LPN - 04/10/2023 7:50 AM ESTPending Prescriptions: Disp Refills predniSONE 10 MG Oral Tablet (Deltasone) 90 Tab*1 Sig: Take 1/2to 1 tablet by mouth in the morning with food documented in this encounter Plan of Treatment Upcoming Encounters Date Type Department Care Team (Late st Contact Info) Description 04/14/2023 10:00 AM EST [facility], [facility] [address] [place] [address] Raquel Lopez, DIMPLE [address] [place] [address] 04/28/2023 2:45 PM EST Telemedicine Dermatology [facility] [address] [facility] [place] [address] Doyle Osei MD 200 [place] [address] 05/02/2023 2:30 PM EST Telemedicine [facility], [facility] [address] [place] [address] Radha Marks CRNP [address] [place] [address] Glory Glez Community Health Personnel Administrator [address] [place] [address] [place] [address] 08/30/2023 1:40 PM EDT Office Visit [address] [place] [phone] Tomasa Covington MD [address] [place] [address] [place] [address] 03/04/2024 1:00 PM EST Office [address] [place] [phone] Ivy Meier MD [address] [place] [address] [place] [address] Health Maintenance Due Date Last Done Comments [...] D LEVEL ONCE IN A LIFETIME-USE SMARTSET# [id number] Completed 02/15/2019, 08/16/2016, 02/11/2016, Additional history exists [...] Adult Child Health Care Joseph r of Cutter Helper [email or web address] et Care Teams Biochemist Relationship Specialty Start Date End Date Ivy Meier MD [address] [place] [address] [place] [phone] PCP - General Family Medicine 01/17/17 documented as of this encounter
--- OUTSIDE RECORDS SUMMARY | 2023-05-12 02:49 | External Medical Summary | Summary of Care ---
Author Name Unknown Organization [facility] Address [address] [place] [address] Phone [phone] Care Team Providers Care Material Manager Name Role Phone Ivy Meier MD Primary Care Provide r Reason for Visit * Reason Onset Date Comments Medication Refill 04/08/2023 Encounter Details Date Type Department Care Team (Late st Contact Info) Description 04/08/2023 Refill Dermatology [address] [place] [address] Ramona Thompson MD [address] [place] [id number] Mucous membrane pemphigoid Allergies Active Allergy Reactions [...] by mouth in the morning. 0 Active Ferrous Sulfate 325 (65 Fe) MG Oral Tablet (Feosol) Take 1 Tab by mouth daily with breakfast. 30 Tab 5 05/26/2020 Active Acetaminophen 500 MG Oral Tablet (Tylenol) [...] tablet daily 90 Tablet 1 11/17/2022 Active Linzess 145 MCG Oral Capsule (linaCLOtide)Indica tions:Slow transit constipation Take 1 Capsule by mouth daily before breakfast. 90 Capsule 1 01/18/2023 Active Famotidine 20 MG Oral Tablet (Pepcid) [...] THE DAY 30 Capsule 5 04/09/2023 Active predniSONE 10 MG Oral Tablet (Deltasone)Indicati ons:Mucous membrane pemphigoid Take 1/2 to 1 tablet by mouth in the morning with food 90 Tablet 1 07/11/2022 3 Discontinue d(Refill) documented as of this [...] worse along with may be little cellulitis. [facility] nurse case management assistant saw the patient yesterday and stated that [...] a possible early cellulitis. Her nurse case management assistant will call in checkup with her later [...] serve, 2-Dose Series (Pfizer) 06/19/2020,05/29/2020 Covid-19 Adenovirus, [place] 1 Vector, 2-dose Series, PF (AstraZeneca) 02/07/2022,04/01/2021 [...] Encounter - Ramona Thompson MD - 04/10/2023 8:29 AM EST Xavier diop, can be phone, any provider regarding refills and check up of pemphigoid. Patient Phone Numbers * Telephone Encounter - Ramona Thompson MD - 04/10/2023 8:28 AM ESTSigned Prescriptions: Disp Refills predniSONE 10 MG Oral Tablet (Deltasone) 90 Tab*1 Sig: Take 1/2 to 1 tablet by mouth in the morning with food Authorizing Provider: RAMONA THOMPSON * Telephone Encounter - Morena Abdul LPN - 04/10/2023 7:50 AM ESTPending Prescriptions: Disp Refills predniSONE 10 MG Oral Tablet (Deltasone) 90 Tab*1 Sig: Take 1/2to 1 tablet by mouth in the morning with food documented in this encounter Plan of Treatment Upcoming Encounters Date Type Department Care Team (Late st Contact Info) Description 04/14/2023 10:00 AM EST Home Visit [facility] [address] [place] [address] Raquel Lopez, DIMPLE 132 [facility] [place] [address] 05/02/2023 2:30 PM EST Telemedicine [facility], [facility] 132 [facility] [place] [address] Radha Marks CRNP [address] [place] [address] Glory Glez, Community Health Search And Rescue Officer [address] [place] [address] [place] [address] 08/30/2023 1:40 PM EDT Office Visit [address] [phone] Tomasa Covington MD [address] [place] [address] [place] [address] 03/04/2024 1:00 PM EST Office Visit [address] [phone] Ivy Meier MD [address] [place] [address] [place] [address] Health Maintenance Due Date Last Done Comments [...] D LEVEL ONCE IN A LIFETIME-USE SMARTSET# [id number] Completed 02/15/2019, 08/16/2016, 02/11/2016, Additional history exists [...] Adult Child Health Care Joseph r of Fruit And Vegetable Classer [email or web address] Care Teams Material Manager Relationship Specialty Start Date End Date Ivy Meier MD [address] [place] [address] [place] [phone] PCP - General Family Medicine 01/17/17 documented as of this encounter
--- OUTSIDE RECORDS SUMMARY | 2023-05-12 02:49 | External Medical Summary | Summary of Care ---
Author Name Unknown Organization [facility] Address [address] [place] [address] Phone [phone] Care Team Providers Care Nailer Machine Name Role Phone Ivy Meier MD Primary Care Provide r Reason for Referral * Evaluate & Treat - Unlimited Visits (Within 10 days (routine)) - Authorized Specialty Diagnoses / Procedures Referred By Bandar pate Referred To Contact Occupational Medicine / Occupational Therapy Diagnoses Lymphedema Ivy Meier MD [address] [place] [address] [place] [id number] Referral ID Status Reason Start Date Expiration Date Visits Requested Visits Authorized [id number] Authorized Specialty Services Required 01/02/2023 999 999 Question Answer Referral Priority Within 10 days (routine) Comments Lymphedema therapy Reason for Visit * Reason Onset Date Comments Home Health 01/02/2023 Encounter Details Date Type Department Care Team (Late st Contact Info) Description 01/02/2023 Telephone Family Medicine [facility] [place] [phone] Ivy Meier MD [address] [place] [address] [place] [address] Home Health Allergies Active Allergy Reactions Criticality Noted Date Comments Naproxen 01/06/2001 Rash localized to forearms and flushing Niacin 11/27/2000 Rash localized to forearms documented as of this encounter (statuses as of 04/03/2023) Medications Medication Sig Dispensed Refills Start Date End Date Status DORZOLAMIDE-TIMOLO L 2-0.5 % OP SOLN one drop in each eye twice a day 0 Active Vitamin D, Cholecalciferol, 1000 units CAPS Take by mouth. 0 Activ e Cyanocobalamin (VITAMIN B 12) 100 MCG lozenge Take 2 Lozenges by mouth in the morning. 0 Active Ferrous Sulfate 325 (65 Fe) MG Oral Tablet (Feosol) Take 1 Tab by mouth daily with breakfast. 30 Tab 5 1 Active Acetaminophen 500 MG Oral Tablet (Tylenol) Take 2 Tablets by mouth every 6 hours as needed. 0 Active predniSONE 10 MG Oral Tablet (Deltasone)Indicat ions:Mucous membrane pemphigoid Take 1/2 to 1 tablet by mouth in the morning with food 90 Tablet 1 3 Active Polyethylene Glycol 3350 17 GM/SCOOP Oral Powder Take 17 g by mouth in the morning. Dissolve one heaping tablespoon in 8 ounces of water or juice.. 0 3 Active Mycophenolate Mofetil 500 MG Oral Tablet (CellCept)Indicati ons:Mucous membrane pemphigoid 1 tablet daily 90 Tablet 1 3 Active Omeprazole 20 MG Oral Capsule Delayed Release (PriLOSEC) TAKE ONE CAPSULE BY MOUTH EVERY DAY ONE hour BEFORE first meal of THE DAY 30 Capsule 5 3 Active linaCLOtide 72 MCG Oral Capsule (Linzess)Indicatio ns:Slow transit constipation Take 1 Capsule by mouth daily before breakfast. 30 Capsule 5 3 01/19/20 23 Discontinued Levothyroxine Sodium 100 MCG Oral Tablet (Levoxyl)Indicatio ns:Postsurgical hypothyroidism Take 1 Tablet by mouth in the morning. (at least 30 min prior to breakfast or other meds). 30 Tablet 5 3 02/29/20 23 Discontinued(Re fill) Dexamethasone 0.5 MG/5ML Oral Solution (Decadron)Indicati ons:Mucous membrane pemphigoid 5 ml twice daily (swish and spit) as needed during flares of mouth ulcers 240 mL 0 3 02/29/20 23 Discontinued documented as of this encounter (statuses as of 04/03/2023) Active Problems Problem Noted Date Diagnosed Date [...] worse along with may be little cellulitis. [facility] nurse pillowcase folder saw the patient [...] as of this encounter (statuses as of 04/03/2023) Resolved Problems Problem Noted Date Diagnosed Date [...] as of this encounter (statuses as of 04/03/2023) Immunizations Name Administration Dates Next Due COVID-19 mRNA, LNP-s, No Pre serve, 2-Dose Series (Pfizer) 06/19/2020,05/29/2020 Covid-19 Adenovirus, [place] 1 Vector, 2-dose Series, PF ([employer]en[employer]) 02/07/2022,04/01/2021 DTaP Dipth/Tet/Acell Pertussis (Infanrix), Peds 07/24/2021 Pneumococcal Conjugate Vacc, 13 Valent (Prevnar) 02/04/2015 Pneumococcal Polysaccharide PPV23 (Pneumovax) 04/24/2003 SEASONAL INFLUENZA, PF, 6 M & Above, IM , (FLULAVAL or FLUZONE) 01/04/2019,01/25/2018,01/22/2017 Season Influenza, Quad, PF, Adjuvanted, 65+ Yrs, IM (FLUAD) 01/03/2020 Seasonal Influenza, Quadriva lent Hd (Fluzone Hd) 02/01/2021 Seasonal Influenza, Quadriva lent, No Preserve, IM [...] encounter Miscellaneous Notes * Telephone Encounter - Hyun Correa LPN - 01/05/2023 8:29 AM EDT OT order faxed to [facility]. Will do the order for the walker through [employer]. On Dr. Meier's desk for signature. * Telephone Encounter - Ivy Meier MD - 01/02/2023 3:25 PM EDT Signed order for walker and OT for lymphedema therapy. OK for medical social worker * Telephone Encounter - Concepcion Leavitt LPN - 01/02/2023 2:47 PM EDT Provider to address: order requests Reason for Call: Home Health Contact: Telephone Call Contact Type: Information Outcome: HH Concerns Clau RN, Calling from: [employer] Report/Concerns of: wound of left lower gary Symptoms: none Narrative: Clau calling from [employer]. Placed hydraferra blue and a border dressing. Lengthis 2.4 cm and the width is 2 cm. The depth is 0.3 cm The wound is beefy red. No signs of infection. Recommending it get changed 3 times a week. She needs a rollator walker sent to [facility] Hoping to get a referral for a medical office receptionist assistant for life alert. OT for lymphedema therapy. Call back Clau with any advice or orders at [phone] Please fax new orders to [phone] Total Time including non face to face (minutes): 10 documented in this encounter Plan of Treatment Upcoming Encounters Date Type Department Care Team (Late st Contact Info) Description 04/14/2023 10:00 AM EST Home Visit [facility], [address] [place] [address] Raquel Lopez, DIMPLE [address] [place] [address] 05/02/2023 2:30 PM EST Telemedicine [facility], [facility] [address] [place] [address] Radha Marks CRNP [address] [facility] [address] Glory Glez Community Health Concrete Block Plant Supervisor [address] [place] [address] [place] [address] 08/30/2023 1:40 PM EDT Office Visit [address] [place] [phone] Tomasa Covington MD [address] [place] [address] [place] [address] 03/04/2024 1:00 PM EST Office Visit [address] [phone] Ivy Meier MD [address] [place] [address] [place] [address] Scheduled Referrals Name Type Priority Associated Diagnoses Order Schedule OCCUPATIONAL THERAPY REFERRAL OP Referral Within 10 days (routine) Lymphedema Ordered: 01/02/2023 Health Maintenance Due Date Last Done Comments Depression Screening 05/22/2021 05/22/2020 COVID-19 Vaccine (3 - Pfizer risk series) 03/07/2022 02/07/2022, 04/01/2021, 06/19/2020, Additional history exists TSH 02/29/2024 02/28/2023, 070 10/2022, 09/28/2022, Additional history exists DTaP,Tdap,and Td Vaccines (4 - Td or Tdap) 07/25/2031 07/24/2021, 07/24/2021, 08/20/2012 DXA Scan Discontinued 08/27/2014, 0 07/2012, 03/23/2010, Additional history exists Pneumococcal Vaccine: 65+ Years Completed 02/04/2015, 04/24/2003 *BISPHONATE OR OTHER ACCEPTABLE MEDICATION NEEDED FOR OSTEOPOROSIS (REFER TO SMARTSET #1146) Addressed 11/02/2017 (Not indicated) Overridden with the intention of not completing the topic VITAMIN D LEVEL ONCE IN A LIFETIME-USE SMARTSET# [id number] Completed 02/15/2019, 08/16/2016, 02/11/2016, Additional history exists [...] as of this encounter Visit Diagnoses Diagnosis Chronic myeloproliferative disease (HCC)- Primary 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 Lymphedema Other lymphedema 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 documented in this encounter Additional Health Concerns Infection Onset Date Last Indicated Resolved Time COVID-19 (confirmed) 08/10/2021 08/10/2021 documented as of this encounter Advance Directives Healthcare Agents on File Name Relationship Healthcare Agent Relationship Communication Suzy Prado Adult Child Health Care Joseph r of Computer Aided Drafter [email or web address] Care Teams Nailer Machine Relationship Specialty Start Date End Date Ivy Meier MD [address] [place] [address] [place] [address] PCP - General Family Medicine 01/17/17 documented as of this encounter
--- OUTSIDE RECORDS SUMMARY | 2023-05-12 02:49 | External Medical Summary | Summary of Care ---
Author Name Unknown Organization [facility] Address [address] [place] [address] Phone [phone] Care Team Providers Care Hvac Tech Name Role Phone Ivy Meier MD Primary Care Provide r Reason for Visit * Reason Onset Date Comments Urinary Tract Infection Symptoms 04/25/2023 Encounter Details Date Type Department Care Team (Late st Contact Info) Description 04/25/2023 Telephone [facility], [facility] [address] [employer] [address] [place] [address] Raquel Lopez, DIMPLE [address] [facility] [place] [address] Urinary Tract Infection Symptoms Allergies Active Allergy Reactions Criticality Noted Date [...] Active Mycophenolate Mofetil 500 MG Oral Tablet (CellCept)Indications :Mucous membrane pemphigoid 1 tablet daily 90 Tablet 1 04/10/2023 Active predniSONE 10 MG Oral Tablet (Deltasone)Indication [...] little cellulitis. [facility] nurse case advocate saw the patient [...] serve, 2-Dose Series (Pfizer) 06/19/2020,05/29/2020 Covid-19 Adenovirus, [place] 1 Vector, 2-dose Series, PF (AstraZeneca) 02/07/2022,04/01/2021 [...] encounter Miscellaneous Notes * Telephone Encounter - Raquel Lopez RN - 04/25/2023 8:31 AM EST Patient daughter called in 04/22 reporting patient has UTI symptoms. UA C&S ordered. documented in this encounter Plan of Treatment Upcoming Encounters Date Type Department Care Team (Late st Contact Info) Description 04/28/2023 2:45 PM EST Telemedicine Dermatology [facility] 200 [facility] [place] [address] Doyle Osei MD 200 [facility] [place] [address] 05/02/2023 2:30 PM EST Telemedicine [facility], [facility] 132 [facility] [place] [address] Radha Marks CRNP 132 [facility] [place] [address] Glory Glez Community Health Bookkeeping Machine Mechanic [address] [place] [address] [place] [address] 05/19/2023 8:30 AM EST Home Visit [facility], [facility] 132 [facility] [place] [address] Raquel Lopez, DIMPLE 132 [place] [place] [address] 08/30/2023 1:40 PM EDT Office Visit Family [address] [phone] Tomasa Covington MD [address] [place] [address] [place] [address] 03/04/2024 1:00 PM EST Office Visit Family [address] [phone] Ivy Meier MD [address] [place] [address] [place] [address] Scheduled Orders Name Type Priority Associated Diagnoses Orde r Schedule URINALYSIS, REFLEX TO CULTURE (NOT FOR NEUTROPENIC PATIENTS) Lab Routine Urinary frequency Expected: 04/25/2023, Expires: 04/25/2024 Health Maintenance Due Date Last Done Comments Depression Screening 05/22/2021 05/22/2020 COVID-19 Vaccine (3 - Pfizer risk series) 03/07/2022 02/07/2022, 04/01/2021, 06/19/2020, Additional history exists TSH 02/29/2024 02/28/2023, 0 10/2022, 09/28/2022, Additional history exists DTaP,Tdap,and Td [...] D LEVEL ONCE IN A LIFETIME-USE SMARTSET# [id number] Completed 02/15/2019, 08/16/2016, 02/11/2016, Additional history exists [...] of this encounter Visit Diagnoses Diagnosis Urinary frequency- Primary documented in this encounter Additional Health Concerns Infection Onset Date Last Indicated Resolved Time COVID-19 (confirmed) 08/10/2021 08/10/2021 documented as of this encounter Advance Directives Healthcare Agents on File Name Relationship Healthcare Agent Relationship Communication Suzy Prado Adult Child Health Care Joseph r of Milk Processing Worker [email or web address] Care Teams Hvac Tech Relationship Specialty Start Date End Date Ivy Meier MD [address] [place] [address] [place] [phone] PCP - General Family Medicine 01/17/17 documented as of this encounter
--- OUTSIDE RECORDS SUMMARY | 2023-05-12 02:49 | External Medical Summary | Summary of Care ---
Author Name Unknown Organization [facility] Address [address] [place] [address] Phone [phone] Care Team Providers Care Industrial Accountant Name Role Phone Ivy Meier MD Primary Care Provide r Reason for Visit * Reason Comments [facility]: Maintenance Encounter Details Date Type Department Care Team (Late st Contact Info) Description 04/11/2023 10:00 AM EST Home Visit [facility], [facility] [place] [address] Raquel Lopez, RN 132 [facility] [place] [address] Canceled (Clinician Appt Cancel Pt Seen Sooner) Allergies Active Allergy Reactions Criticality Noted Date Comments Naproxen 01/06/2001 Rash localized to forearms and flushing Niacin 11/27/2000 Rash localized to forearms documented as of this encounter (statuses as of 04/14/2023) Medications Medication Sig Dispensed Refills Start Date [...] as of this encounter (statuses as of 04/14/2023) Active Problems Problem Noted Date Diagnosed Date [...] worse along with may be little cellulitis. [facility] nurse housing case manager saw the patient yesterday and [...] for a possible early cellulitis. Her nurse housing case manager will call in checkup with [...] as of this encounter (statuses as of 04/14/2023) Resolved Problems Problem Noted Date Diagnosed Date [...] as of this encounter (statuses as of 04/14/2023) Immunizations Name Administration Dates Next Due COVID-19 mRNA, LNP-s, No Pre serve, 2-Dose Series (Pfizer) 06/19/2020,05/29/2020 Covid-19 Adenovirus, [place] 1 Vector, 2-dose Series, PF (AstraZeneca) 02/07/2022,04/01/2021 [...] Sign Reading Time Taken Comments Blood Pressure 104/52 04/11/2023 8:53 AM EST Pulse 84 04/11/2023 8:53 AM EST Temperature 36.8 C (98.3 F) 04/11/2023 8:53 AM ES T Respiratory Rate 18 04/11/2023 8:53 AM EST Oxygen Saturation 98% 04/11/2023 8:53 AM EST Inhaled Oxygen Concentration - - Weight - - Height - - Body Mass Index - - documented in this encounter Progress Notes * Raquel Lopez RN - 04/11/2023 8:40 AM EST [facility] Visit Date: 04/11/2023 Time: 8:40 AM Name: Milagro Mckoy : 1935 Current Concerns: Patient seen for follow up- Mucous membrane pemphigoid, lymphedema, history of ovarian cancer Status post fall- beginning of month. Fell while trying to get off of toilet and feel sideways. Unclear as to why she fell. Life alert- refused ER. Skin tear LUE, ecchymosis noted to BLE. Dressing changed to LUE- cleansed with soap and water- Xeroform and BA applied. No s/sx's of infection- encouraged to have BA changed every 3 days until healed. Reports feeling well. Reports feeling uncomfortable in belly. Does not affect appetite. Bowels wnl- moves every 2-3 days. Now has caregivers daily from 8:30-2pm- Caregivers Renetta Problems/Symptoms: Physical Exam: BP 104/52 (BP Site: Right Arm, BP Position: Sitting, BP Cuff Size: Regular) | Pulse 84 | Temp 36.8 C (98.3 F) (Tympanic) | Resp 18 | SpO2 98% Pain 0 [facility]-10 Completed this Visit: Yes. [facility]-10: Reason Completed: Status post fall [facility]-10 ([facility]) Fall Risk Assessment Tool Age 65+: Yes (04/11/23799) Diagnosis (3 or more co-existing): Yes (04/11/23799) Prior history of falls within 3 months: Yes (04/11/23799) Incontinence: Yes (04/11/23799) Visual impairment: Yes (04/11/23799) Impaired functional mobility: Yes (04/11/23799) Environmental hazards: No (04/11/23799) Poly Pharmacy (4 or more prescriptions - any type): Yes (04/11/23799) Pain affecting level of function: No (04/11/23799) Cognitive impairment: No (04/11/23799) Score - a score of 4 or more is considered at risk for fallin (04/11/23799) [facility]-10 Interventions: Fall education provided, reviewed/provided Fall brochure Treatment/Plan: Home Interventions Provided: Reinforced current Plan of Care, including self-management and medication regimen Patient Needs to Remember: Call [facility] with any medical concerns/ red flags Referrals Needed: N/a Follow Up: Is there cellular connectivity/connectivity in the home? Yes Does the patient have internet in the home? No Patient encouraged to call the intake phone number for all urgent but not emergent issues. Scheduled to follow up with patient in 5 weeks. Raquel Morgan RN 04/11/2023 8:40 AM documented in this encounter Plan of Treatment Upcoming Encounters Date Type Department Care Team (Late st Contact Info) Description 04/28/2023 2:45 PM EST Telemedicine Dermatology [facility] 200 [facility] [place] [address] Doyle Osei MD 200 [facility] [place] [address] 05/02/2023 2:30 PM EST [facility] 132 [facility] [place] [address] Radha Marks CRNP 132 [facility] [place] [address] Glory Glez, Community Health Vice President Diversity [address] [place] [address] [place] [address] 05/19/2023 8:30 AM EST Home Visit [facility] [place], [facility] 132 [place] [address] Raquel Lopez, DIMPLE 132 [place] [address] 08/30/2023 1:40 PM EDT Office Visit [address] [phone] Tomasa Covington MD [address] [place] [address] [place] [address] 03/04/2024 1:00 PM EST Office Visit [address] [phone] Ivy Meier MD [address] [place] [address] [place] [address] Health Maintenance Due Date Last Done Comments [...] D LEVEL ONCE IN A LIFETIME-USE SMARTSET# [id number] Completed 02/15/2019, 08/16/2016, 02/11/2016, Additional history exists [...] Adult Child Health Care Joseph r of Plumber Cub [email or web address] Care Teams Industrial Accountant Relationship Specialty Start Date End Date Ivy Meier MD [address] [place] [address] [place] [address] PCP - General Family Medicine 01/17/17 documented as of this encounter"
--- OUTSIDE RECORDS SUMMARY | 2023-05-12 02:49 | External Medical Summary ---
Author Name Unknown Address Unknown Organization K01:LABORATORY [facility] [place] - [address] [facility] [address] Laboratory Report Ordering Provider Test Date Status OLIMPIA WILKINSON 04/25/2023 09:49:12 Final <10,000 colonies/ml mixed no rmal sheryl Observation Date Value Abnormality Reference (Units ) Status Bacteria identified in Specimen by Culture 04/25/2023 09:49:12 [id number]^ESCHE RICHIA COLI Abnormal Final >100,000 colonies/mL Escheri silvana coli Performing Location LAB[facility]ATORY [facility] [place] - [address] [facility] [address] Ordering Provider Test Date Status OLIMPIA WILKINSON 04/25/2023 09:49:12 Final Observation Date Value Abnormality Reference (Units ) Status Ampicillin 04/25/2023 09:49:12 8 Susceptible Final Cefazolin 04/25/2023 09:49:12 <=4 Susceptible Final Cefepime susceptibility 04/25/2023 09:49:12 <=1 Susceptible Final Ceftriaxone suceptibility 04/25/2023 09:49:12 <=1 Susceptible Final Ciprofloxacin 04/25/2023 09:49:12 <=0.25 Susceptible Final Due to serious side effects, the FDA has advised against using Ciprofloxacin to treat uncomplicated UTIs and respiratory tract infections unless there are no alternative treatment options. Gentamicin susceptibility 04/25/2023 09:49:12 <=1 Susc eptible Final Nitrofurantoin susceptibility 04/25/2023 09:49:12 <=16 Susceptible Final Piperacillin + Tazobactamsusceptibility 04/25/2023 09:49:12 <=4 Susceptible Final TMP-SMZ susceptibility 04/25/2023 09:49:12 <=20 Suscept ible Final Test: Culture, Urine, Quanti tative
Specimen Source: Urine, Clean Catch
Specimen Type: Urine
Specimen Date: 04/25/2023 9:49 AM
Result Date: 04/28/2023 2:48 PM
Result Status: Final result
Abnormal: Yes
Resulting Lab: [facility] [place]
[address]
[facility] [address]

CULTURE

>100,000 colonies/mL Escherichia coli (Abnormal)

<10,000 colonies/ml mixed normal sheryl

SUSCEPTIBILITY

Escherichia coli
METHOD MICROBROTH DILUTIONS

AMPICILLIN 8 Susceptible
CEFAZOLIN <=4 Susceptible
CEFEPIME <=1 Susceptible
CEFTRIAXONE <=1 Susceptible
CIPROFLOXACIN <=0.25 Susceptible [1]
GENTAMICIN <=1 Susceptible
NITROFURANTOIN <=16 Susceptible
PIPERACILLIN TAZOBACTAM <=4 Susceptible
TRIMETH/SULFAMETHOXAZOLE <=20 Susceptible

[1] Due to serious side effects, the FDA has advised against using
Ciprofloxacin to treat uncomplicated UTIs and respiratory tract infections
unless there are no alternative treatment options.

null Performing Location LABORATORY [facility] [place] - [address] [facility] [address]
--- OUTSIDE RECORDS SUMMARY | 2023-05-12 02:49 | External Medical Summary | Summary of Care ---
Author Name Unknown Organization [facility] Address [address] [place] [address] Phone [phone] Care Team Providers Care Laboratory Assistant Name Role Phone Ivy Meier MD Primary Care Provide r Reason for Visit * Reason Onset Date Comments Medication Refill 04/08/2023 Encounter Details Date Type Department Care Team (Late st Contact Info) Description 04/08/2023 Refill Derm[address] [place] [address] Ramona Thompson MD [address] [place] [id number] Mucous membrane pemphigoid Allergies Active Allergy Reactions [...] worse along with may be little cellulitis. [facility] nurse window caser saw the patient yesterday and stated [...] for a possible early cellulitis. Her nurse window caser will call in checkup with her [...] serve, 2-Dose Series (Pfizer) 06/19/2020,05/29/2020 Covid-19 Adenovirus, [place] 1 Vector, 2-dose Series, PF (AstraZeneca) 02/07/2022,04/01/2021 [...] 7:21 PM EDT Sexual Orientation Straight 09/25/2022 7 :21 PM EDT Job Start Date Occupation Industry [...] 10:00 AM EST Home Visit [facility] [address] [place] [address] Raquel Lopez, DIMPLE 132 [facility] [place] [address] 05/02/2023 2:30 PM EST Telemedicine [facility], [facility] 132 [facility] [place] [address] Radha Marks CRNP 132 [place] [address] Glory Glez, Community Health Television Station Manager [address] [place] [address] [place] [address] 08/30/2023 1:40 PM EDT Office Visit [address] [phone] Tomasa Covington MD [address] [place] [address] [place] [address] 03/04/2024 1:00 PM EST Office Visit [address] [phone] Ivy Meier MD [address] [place] [address] [place] [address] Health Maintenance Due Date Last Done Comments [...] D LEVEL ONCE IN A LIFETIME-USE SMARTSET# [id number] Completed 02/15/2019, 08/16/2016, 02/11/2016, Additional history exists [...] Adult Child Health Care Joseph r of Veterinary Laboratory Technician [email or web address] Care Teams Laboratory Assistant Relationship Specialty Start Date End Date Ivy Meier MD [address] [place] [address] [place] [phone] PCP - General Family Medicine 01/17/17 documented as of this encounter
--- OUTSIDE RECORDS SUMMARY | 2023-05-12 02:49 | External Medical Summary | Summary of Care ---
Author Name Unknown Organization [facility] Address [address] [place] [address] Phone [phone] Care Team Providers Care Director Ambulatory Name Role Phone Ivy Meier MD Primary Care Provide r Reason for Visit * Reason Onset Date Comments Medication Refill 04/08/2023 Encounter Details Date Type Department Care Team (Late st Contact Info) Description 04/08/2023 Refill [facility], [facility] [address] [facility] [place] [address] Radha Marks CRNP [address] 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 Take 1/2 to 1 tablet by mouth in the morning with food 90 Tablet 1 07/11/2022 Active Polyethylene Glycol 3350 17 GM/SCOOP Oral [...] mouth ulcers 240 mL 0 03/22/2023 Active Omeprazole 20 MG Oral Capsule Delayed Release (PriLOSEC) TAKE ONE CAPSULE BY MOUTH EVERY DAY ONE hour BEFORE first meal of THE DAY 30 Capsule 5 04/09/2023 Active Omeprazole 20 MG Oral Capsule Delayed Release (PriLOSEC) TAKE ONE CAPSULE BY MOUTH EVERY DAY ONE hour BEFORE first meal of THE DAY 30 Capsule 5 12/09/2022 3 Discontinue d(Refill) documented as of this encounter (statuses as of 04/09/2023) Active Problems Problem Noted Date Diagnosed Date [...] worse along with may be little cellulitis. [facility] nurse case finisher saw the patient yesterday and stated that [...] a possible early cellulitis. Her nurse case finisher will call in checkup with her later [...] as of this encounter (statuses as of 04/09/2023) Resolved Problems Problem Noted Date Diagnosed Date [...] as of this encounter (statuses as of 04/09/2023) Immunizations Name Administration Dates Next Due COVID-19 mRNA, LNP-s, No Pre serve, 2-Dose Series (Pfizer) 06/19/2020,05/29/2020 Covid-19 Adenovirus, [place] 1 Vector, 2-dose Series, PF (AstraZenVaprema) 02/07/2022,04/01/2021 DTaP Dipth/Tet/Acell Pertussis (Infanrix), Peds 07/24/2021 [...] Telephone Encounter - Radha Marks CRNP - 04/09/2023 9:18 AM ESTSigned Prescriptions: Disp Refills Omeprazole 20 MG Oral Capsule Delayed Rele*30 Cap*5 Sig: TAKE ONE CAPSULE BY MOUTH EVERY DAY ONE hour BEFORE first meal of THE DAYAuthorizing Provider: RADHA MARKS documented in this encounter Plan of Treatment Upcoming Encounters Date Type Department Care Team (Late st Contact Info) Description 04/14/2023 10:00 AM EST Home Visit [facility] 132 [place] [address] Raquel Lopez, DIMPLE 132 [facility] [place] [address] 05/02/2023 2:30 PM EST Telemedicine [facility] 132 [place] [address] Radha Marks CRNP 132 [facility] [place] [address] Glory Glez Community Health Letterset Press Set Up Operator [address] [place] [address] [place] [address] 08/30/2023 1:40 PM EDT Office Visit [address] [place] [phone] Tomasa Covington MD [address] [place] [address] [place] [address] 03/04/2024 1:00 PM EST Office Visit Family Medicine [address] [place] [phone] Ivy Meier MD [address] [place] [address] [place] [address] Health Maintenance Due Date Last Done Comments [...] D LEVEL ONCE IN A LIFETIME-USE SMARTSET# [id number] Completed 02/15/2019, 08/16/2016, 02/11/2016, Additional history exists [...] Adult Child Health Care Joseph r of Senior Systems Engineer [email or web address] Care Teams Director Ambulatory Relationship Specialty Start Date End Date Ivy Meier MD [address] [place] [address] [place] [phone] PCP - General Family Medicine 01/17/17 documented as of this encounter
--- OUTSIDE RECORDS SUMMARY | 2023-05-12 02:49 | External Medical Summary | Summary of Care ---
Author Name Unknown Organization [facility] Address [address] [place] [address] Phone [phone] Care Team Providers Care Retail Sales Vitamin Consultant Name Role Phone Ivy Meier MD Primary Care Provide r Reason for Visit * Reason Onset Date Comments [facility]: Maintenance 04/22/2023 Encounter Details Date Type Department Care Team (Late st Contact Info) Description 04/22/2023 Telephone [facility], [facility] 132 [facility] [place] [address] [facility], Nurse [facility] 132 [place] [address] [facility]: Maintenance Allergies Active Allergy Reactions Criticality Noted Date Comments Naproxen 01/06/2001 Rash localized to forearms and flushing Niacin 11/27/2000 Rash localized to forearms documented as of this encounter (statuses as of 04/22/2023) Medications Medication Sig Dispensed Refills Start Date [...] as of this encounter (statuses as of 04/22/2023) Active Problems Problem Noted Date Diagnosed Date [...] worse along with may be little cellulitis. [facility] nurse case management specialist saw the patient yesterday and stated that [...] possible early cellulitis. Her nurse case management specialist will call in checkup with her later [...] as of this encounter (statuses as of 04/22/2023) Resolved Problems Problem Noted Date Diagnosed Date [...] as of this encounter (statuses as of 04/22/2023) Immunizations Name Administration Dates Next Due COVID-19 mRNA, LNP-s, No Pre serve, 2-Dose Series (Pfizer) 06/19/2020,05/29/2020 Covid-19 Adenovirus, [place] 1 Vector, 2-dose Series, PF (AstraZeneca) 02/07/2022,04/01/2021 [...] Miscellaneous Notes * Telephone Encounter - Rain Chandra RN - 04/22/2023 11:18 AM EST Returned call to patient, spoke with daughter, Suzy Pt is afebrile, has some lower pelvic pain, burning on urination. Also has some urgency and frequency. Not able to say if urine is concentrated or foul smelling. Does not have a specimen cup at home There is no [facility] within 30 miles of them that is opened to today Not comfortable starting on an antbx if do not know what is growing. She will go to [facility] and pick up operator AZO, push fluids If symptoms continue, will call tomorrow and see if urine can be collected Faby Chandra RN, BSN [facility] Intake Triage Coordinator [phone] documented in this encounter Plan of Treatment Upcoming Encounters Date Type Department Care Team (Late st Contact Info) Description 04/28/2023 2:45 PM EST Telemedicine Dermatology [facility] 200 [facility] [place] [address] Doyle Osei MD [address] [facility] [place] [address] 05/02/2023 2:30 PM EST Telemedicine [facility], [facility] 132 [place] [address] Radha Marks CRNP [address] [place] [address] Glory Glez, Community Health Associate Dean Of Women [address] [place] [address] [place] [address] 05/19/2023 8:30 AM EST Home Visit [facility], [facility] 132 [place] [address] Raquel Lopez RN [address] [place] [address] 08/30/2023 1:40 PM EDT Office Visit Family Medicine [address] [place] [phone] Tomasa Covington MD [address] [place] [address] [place] [address] 03/04/2024 1:00 PM EST Office Visit Family Medicine [address] [place] [phone] Ivy Meier MD [address] [place] [address] [place] [address] Health Maintenance Due Date Last Done Comments [...] D LEVEL ONCE IN A LIFETIME-USE SMARTSET# [id number] Completed 02/15/2019, 08/16/2016, 02/11/2016, Additional history exists [...] Adult Child Health Care Joseph r of Shingle Packer [email or web address] Care Teams Retail Sales Vitamin Consultant Relationship Specialty Start Date End Date Ivy Meier MD [address] [place] [address] [place] [phone] PCP - General Family Medicine 01/17/17 documented as of this encounter
--- OUTSIDE RECORDS SUMMARY | 2023-05-12 02:49 | External Medical Summary | Summary of Care ---
Author Name Unknown Organization [facility] Address [address] [place] [address] Phone [phone] Care Team Providers Care Suspender Maker Name Role Phone Ivy Meier MD Primary Care Provide r Reason for Visit * Reason Comments [facility]: Maintenance Encounter Details Date Type Department Care Team (Late st Contact Info) Description 04/11/2023 10:00 AM EST Home Visit [facility] [place] [address] Raquel Lopez, RN [address] [place] [address] Allergies Active Allergy Reactions Criticality Noted Date Comments Naproxen 01/06/2001 Rash localized to forearms and flushing Niacin 11/27/2000 Rash localized to forearms documented as of this encounter (statuses as of 04/11/2023) Medications Medication Sig Dispensed Refills Start Date [...] as of this encounter (statuses as of 04/11/2023) Active Problems Problem Noted Date Diagnosed Date [...] worse along with may be little cellulitis. [facility] nurse case assembler saw the patient yesterday and stated that [...] a possible early cellulitis. Her nurse case assembler will call in checkup with her later [...] as of this encounter (statuses as of 04/11/2023) Resolved Problems Problem Noted Date Diagnosed Date [...] as of this encounter (statuses as of 04/11/2023) Immunizations Name Administration Dates Next Due COVID-19 mRNA, LNP-s, No Pre serve, 2-Dose Series (Pfizer) 06/19/2020,05/29/2020 Covid-19 Adenovirus, [place] 1 Vector, 2-dose Series, PF (AstraZeneca) 02/07/2022,04/01/2021 [...] Time Taken Comments Blood Pressure 104/52 04/11/2023 8:40 AM EST Pulse 84 04/11/2023 8:40 AM EST Temperature 36.8 C (98.3 F) 04/11/2023 8:40 AM ES T Respiratory Rate 18 04/11/2023 8:40 AM EST Oxygen Saturation 98% 04/11/2023 8:40 AM EST Inhaled Oxygen Concentration - - Weight - - Height - - Body Mass Index - - documented in this encounter Progress Notes * Raquel Lopez RN - 04/11/2023 1:07 PM EST [facility] Visit Date: 04/11/2023 Time: 8:40 AM Name: [...] uncomfortable in belly. Does not affect appetite. Appetite good Bowels wnl- moves every 2-3 days. Now has caregivers daily from 8:30-2pm- Caregivers Renetta VS wnl Lungs clear bilaterally Sob with exertion +1 pitting edema BLE Voiding without difficulty Taking fluids- needs encouragement Problems/Symptoms: Physical Exam: BP 104/52 (BP Site: Right Arm, BP Position: Sitting, BP Cuff Size: Regular) | Pulse 84 | Temp 36.8 C (98.3 F) (Tympanic) | Resp 18 | SpO2 98% Pain 0 [facility]-10 Completed this Visit: Yes. [facility]-10: Reason Completed: Status post fall [facility] Fall Risk Assessment [...] is considered at risk for fallin (04/11/23799) [facility]-10 Interventions: Fall education provided, reviewed/provided Fall brochure Treatment/Plan: Low na diet Elevate ble- chronic lymphedema Continue medications as prescribed Keep all upcoming MD appointments Fall precautions Fluids encouraged Caregivers daily 8:30-2:00 RN CM follow up in 5 weeks Home Interventions Provided: Reinforced current Plan of Care, including self-management and medication regimen Patient Needs to Remember: Call [facility] with any medical concerns/ red flags Referrals [...] Description 04/14/2023 10:00 AM EST Home Visit [facility] [address] [facility] [place] [address] Raquel Lopez, RN 132 [facility] [place] [address] 04/28/2023 2:45 PM EST Telemedicine Dermatology [facility] [place] 200 [facility] [place] [address] Doyle Osei MD 200 [facility] [place] [address] 05/02/2023 2:30 PM EST Telemedicine [facility], [facility] 132 [facility] [place] [address] Radha Marks CRNP 132 [facility] [place] [address] Glory Glez Community Health Union Representative [address] [place] [address] [place] [address] 05/19/2023 8:30 AM EST Home Visit [facility], [facility] 132 [facility] [place] [address] Raquel Lopez RN 132 [facility] [place] [address] 08/30/2023 1:40 PM EDT Office Visit [address] [phone] Tomasa Covington MD [address] [place] [address] [place] [address] 03/04/2024 1:00 PM EST Office Visit [address] [phone] Ivy Meier MD [address] [place] [address] [place] [address] Health Maintenance Due Date Last Done Comments [...] D LEVEL ONCE IN A LIFETIME-USE SMARTSET# [id number] Completed 02/15/2019, 08/16/2016, 02/11/2016, Additional history exists [...] Adult Child Health Care Joseph r of Import/Export Administrator [email or web address] Care Teams Suspender Maker Relationship Specialty Start Date End Date Ivy Meier MD [address] [place] [address] [place] [address] PCP - General Family Medicine 01/17/17 documented as of this encounter"
--- OUTSIDE RECORDS SUMMARY | 2023-05-12 02:50 | External Medical Summary | Summary of Care ---
Author Name Unknown Organization [facility] Address [address] [place] [address] Phone [phone] Care Team Providers Care Strike Plate Attacher Name Role Phone Ivy Meier MD Primary Care Provide r Reason for Visit * Reason Comments [facility]: Maintenance Encounter Details Date Type Department Care Team (Late st Contact Info) Description 03/10/2023 8:30 AM EST [facility] Visit [facility], [facility] [place] [address] Raquel Lopez, RN [address] [place] [address] Allergies Active Allergy Reactions Criticality Noted Date Comments Naproxen 01/06/2001 Rash localized to forearms and flushing Niacin 11/27/2000 Rash localized to forearms documented as of this encounter (statuses as of 03/11/2023) Medications Medication Sig Dispensed Refills Start Date [...] 0 Active predniSONE 10 MG Oral Tablet (Deltasone)Indication [...] tablet daily 90 Tablet 1 11/17/2022 Active Omeprazole 20 MG Oral Capsule Delayed Release (PriLOSEC) TAKE ONE CAPSULE BY MOUTH EVERY DAY ONE hour BEFORE first meal of THE DAY 30 Capsule 5 12/09/2022 Active Linzess 145 MCG Oral Capsule (linaCLOtide)Indicati [...] the morning. 90 Tablet 1 02/28/2023 Active documented as of this encounter (statuses as of 03/11/2023) Active Problems Problem Noted Date Diagnosed Date [...] along with may be little cellulitis. [facility] nurse case assistant saw the patient yesterday and stated [...] a possible early cellulitis. Her nurse case assistant will call in checkup with her [...] as of this encounter (statuses as of 03/11/2023) Resolved Problems Problem Noted Date Diagnosed Date [...] as of this encounter (statuses as of 03/11/2023) Immunizations Name Administration Dates Next Due COVID-19 mRNA, LNP-s, No Pre serve, 2-Dose Series (Pfizer) 06/19/2020,05/29/2020 Covid-19 Adenovirus, [place] 1 Vector, 2-dose Series, PF (AstraZeneca) 02/07/2022,04/01/2021 [...] Sign Reading Time Taken Comments Blood Pressure 108/58 03/10/2023 2:16 PM EST Pulse 84 03/10/2023 2:16 PM EST Temperature 37.2 C (98.9 F) 03/10/2023 2:16 PM ES T Respiratory Rate 18 03/10/2023 2:16 PM EST Oxygen Saturation 95% 03/10/2023 2:16 PM EST Inhaled Oxygen Concentration - - Weight - - Height - - Body Mass Index - - documented in this encounter Progress Notes * Raquel Lopez RN - 03/10/2023 1:59 PM EST [facility] Requirements Planner Visit Date: 03/10/2023 Time: 1:59 PM Name: Milagro Mckoy : 1935 Current Concerns: Patient seen for HAM#3- Admitted to [facility] 01/28 - 02/11/23 Dx: lymphedema with suspected LLE cellulitis, atypical chest pain, hypokalemia, hypomagnesemia Discharged to SNF 02/11 D/c to home on 02/24/23 Reports she has her good days and bad days. Daughter has been staying with patient since discharge home until she gets stronger. Per patient- she qualifies for help in the home through [facility] on [facility]. Received HH services with [facility]- SN/PT/OT VS wnl Lungs clear bilaterally Sob with exertion +1 pitting edema RLE, Trace pitting LLE Voiding without difficulty Bowels wnl- per report Appetite good Taking fluids well Denies discomfort Problems/Symptoms: Review of Systems Constitutional: Negative. HENT: Negative. Respiratory: Positive for shortness of breath. Cardiovascular: Positive for leg swelling. Gastrointestinal: Negative. Genitourinary: Negative. Musculoskeletal: Positive for gait problem. Hematological: Negative. Psychiatric/Behavioral: Negative. Physical Exam: BP 108/58 (BP Site: Left Arm, BP Position: Sitting, BP Cuff Size: Regular) | Pulse 84 | Temp 37.2 C (98.9 F) (Tympanic) | Resp 18 | SpO2 95% Pain 0 Physical Exam Constitutional: Appearance: Normal appearance. Cardiovascular: Rate and Rhythm: Normal rate and regular rhythm. Pulses: Normal pulses. Pulmonary: Effort: Pulmonary effort is normal. Breath sounds: Normal breath sounds. Abdominal: General: Bowel sounds are normal. Palpations: Abdomen is soft. Musculoskeletal: Right lower leg: Edema present. Left lower leg: Edema present. Skin: General: Skin is warm and dry. Capillary Refill: Capillary refill takes 2 to 3 seconds. Neurological: General: No focal deficit present. Mental Status: She is alert and oriented to person, place, and time. Psychiatric: Mood and Affect: Mood normal. Behavior: Behavior normal. [facility]-10 Completed this Visit: No. Routine visit Treatment/Plan: Low na diet Continue medications as prescribed Keep all upcoming Md appointments Fall precautions- walker Elevate ble- edema Fluids encouraged RN CM follow up in 4 weeks Home Interventions Provided: Reinforced current Plan of Care, including self-management and medication regimen Patient's Goals of Care: To be able to get up and putter around in my kitchen Be able to stay in apartment with caregivers Avoid the hospital Patient's 'Red Flags': Increased weakness, fatigue No bm in 3 days fever Patient Needs to Remember: Call gA with any medical concerns/red flags Referrals Needed: N/a Follow Up: Is there cellular connectivity/connectivity in the home? Yes Does the patient have internet in the home? No Patient encouraged to call the intake phone number for all urgent but not emergent issues. Scheduled to follow up with patient in 4 weeks. Raquel Morgan RN 03/10/2023 1:59 PM documented in this encounter Plan of Treatment Upcoming Encounters Date Type Department Care Team (Late st Contact Info) Description 04/14/2023 10:00 AM EST Home Visit [facility] [address] [facility] [place] [address] Raquel Lopez, RN 132 [facility] [place] [address] 08/30/2023 1:40 PM EDT Office Visit [address] [phone] Tomasa Covington MD [address] [place] [address] [place] [address] 03/04/2024 1:00 PM EST Office Visit [address] [phone] Ivy Meier MD [address] [place] [address] [place] [address] Health Maintenance Due Date Last Done Comments [...] D LEVEL ONCE IN A LIFETIME-USE SMARTSET# [id number] Completed 02/15/2019, 08/16/2016, 02/11/2016, Additional history exists [...] Adult Child Health Care Joseph r of Strike Warfare/Missile Systems Officer [email or web address] et Care Teams Strike Plate Attacher Relationship Specialty Start Date End Date Ivy Meier MD [address] [place] [address] [place] [phone] PCP - General Family Medicine 01/17/17 documented as of this encounter"
--- OUTSIDE RECORDS SUMMARY | 2023-05-12 02:50 | External Medical Summary | Summary of Care ---
Author Name Unknown Organization [facility] Address [address] [place] [address] Phone [phone] Care Team Providers Care Senior Ui Designer Name Role Phone Ivy Meier MD Primary Care Provide r Reason for Visit * Reason Onset Date Comments Fax 03/03/2023 Encounter Details Date Type Department Care Team (Late st Contact Info) Description 03/03/2023 Telephone Family Medicine [address] [phone] Ivy Meier MD [address] [place] [address] [place] [address] Fax Allergies Active Allergy Reactions Criticality Noted Date Comments Naproxen 01/06/2001 Rash localized to forearms and flushing Niacin 11/27/2000 Rash localized to forearms documented as of this encounter (statuses as of 03/06/2023) Medications Medication Sig Dispensed Refills Start Date [...] as of this encounter (statuses as of 03/06/2023) Active Problems Problem Noted Date Diagnosed Date [...] worse along with may be little cellulitis. [facility] nurse patient case coordinator saw the patient yesterday and stated that [...] for a possible early cellulitis. Her nurse patient case coordinator will call in checkup with her later [...] as of this encounter (statuses as of 03/06/2023) Resolved Problems Problem Noted Date Diagnosed Date [...] as of this encounter (statuses as of 03/06/2023) Immunizations Name Administration Dates Next Due COVID-19 mRNA, LNP-s, No Pre serve, 2-Dose Series (Pfizer) 06/19/2020,05/29/2020 Covid-19 Adenovirus, [place] 1 Vector, 2-dose Series, PF (AstraZeneca) 02/07/2022,04/01/2021 [...] encounter Miscellaneous Notes * Telephone Encounter - Nelda Martin RN - 03/06/2023 3:15 PM EST List faxed to Pharmacy * Telephone Encounter - Snow Victoria CPhT - 03/03/2023 9:46 AM EST Pharmacy calling to request an updated medication list for the pt be faxed to [phone]. Thank you, Mariaelena Victoria Muffler Tender I [facility] ([facility]) (Formerly Telepharmacy) 03/03/2023,9:47 AM documented in this encounter Plan of Treatment Upcoming Encounters Date Type Department Care Team (Late st Contact Info) Description 03/10/2023 8:30 AM EST Home Visit [facility] [address] [place] [address] Raquel Lopez, DIMPLE [address] [place] [address] 08/30/2023 1:40 PM EDT Office Visit [address] [phone] Tomasa Covington MD [address] [place] [address] [place] [address] 03/04/2024 1:00 PM EST Office Visit [address] [phone] Ivy Meier MD [address] [place] [address] [place] [address] Health Maintenance Due Date Last Done Comments [...] D LEVEL ONCE IN A LIFETIME-USE SMARTSET# [id number] Completed 02/15/2019, 08/16/2016, 02/11/2016, Additional history exists [...] Adult Child Health Care Joseph r of Metal Machinist [email or web address] et Care Teams Senior Ui Designer Relationship Specialty Start Date End Date Ivy Meier MD [address] [place] [address] [place] [phone] PCP - General Family Medicine 01/17/17 documented as of this encounter
--- OUTSIDE RECORDS SUMMARY | 2023-05-12 02:50 | External Medical Summary | Summary of Care ---
Author Name Unknown Organization [facility] Address [address] [place] [address] Phone [phone] Care Team Providers Care Solution Strategist Name Role Phone Ivy Meier MD Primary Care Provide r Encounter Details Date Type Department Care Team (Late st Contact Info) Description 03/08/2023 Population Health External Data Unspecified Department Allergies Active Allergy Reactions Criticality Noted Date Comments Naproxen 01/06/2001 Rash localized to forearms and flushing Niacin 11/27/2000 Rash localized to forearms documented as of this encounter (statuses as of 03/08/2023) Medications Medication Sig Dispensed Refills Start Date [...] as of this encounter (statuses as of 03/08/2023) Active Problems Problem Noted Date Diagnosed Date [...] along with may be little cellulitis. [facility] nurse special education case manager saw the patient yesterday and [...] for a possible early cellulitis. Her nurse special education case manager will call in checkup with [...] as of this encounter (statuses as of 03/08/2023) Resolved Problems Problem Noted Date Diagnosed Date [...] as of this encounter (statuses as of 03/08/2023) Immunizations Name Administration Dates Next Due COVID-19 mRNA, LNP-s, No Pre serve, 2-Dose Series (Pfizer) 06/19/2020,05/29/2020 Covid-19 Adenovirus, [place] 1 Vector, 2-dose Series, PF (AstraZeneca) 02/07/2022,04/01/2021 [...] on file documented as of this encounter Plan of Treatment Upcoming Encounters Date Type Department Care Team (Late st Contact Info) Description 03/10/2023 8:30 AM EST Home Visit [facility] [address] [place] [address] Raquel Lopez, DIMPLE [address] [place] [address] 08/30/2023 1:40 PM EDT Office Visit Family Medicine [address] [place] [phone] Tomasa Covington MD [address] [place] [address] [place] [address] 03/04/2024 1:00 PM EST Office Visit Family Medicine [address] [place] [phone] Ivy Meier MD [address] [place] [address] [place] [address] Health Maintenance Due Date Last Done Comments [...] D LEVEL ONCE IN A LIFETIME-USE SMARTSET# [id number] Completed 02/15/2019, 08/16/2016, 02/11/2016, Additional history exists [...] Adult Child Health Care Joseph r of Store Loss Prevention Manager [email or web address] et Care Teams Solution Strategist Relationship Specialty Start Date End Date Ivy Mieer MD [address] [place] [address] [place] [phone] PCP - General Family Medicine 01/17/17 documented as of this encounter
--- OUTSIDE RECORDS SUMMARY | 2023-05-12 02:50 | External Medical Summary | Summary of Care ---
Author Name Unknown Organization [facility] Address [address] [place] [address] Phone [phone] Care Team Providers Care Gunite Mixer Name Role Phone Ivy Meier MD Primary Care Provide r Reason for Visit * Reason Onset Date Comments Fax 03/03/2023 Encounter Details Date Type Department Care Team (Late st Contact Info) Description 03/03/2023 Telephone [facility] Medicine [address] [phone] Ivy Meier MD [address] [place] [address] [place] [address] Fax Allergies Active Allergy [...] worse along with may be little cellulitis. [facility] nurse caser up saw the patient yesterday and stated that [...] for a possible early cellulitis. Her nurse caser up will call in checkup with her later [...] serve, 2-Dose Series (Pfizer) 06/19/2020,05/29/2020 Covid-19 Adenovirus, [place] 1 Vector, 2-dose Series, PF (AstraZeneca) 02/07/2022,04/01/2021 [...] list for the pt be faxed to [phone]. Thank you, Mariaelena Victoria Finance Executive I [facility] ([facility]) (Formerly Telepharmacy) 03/03/2023,9:47 AM documented in this encounter Plan of Treatment Upcoming Encounters Date Type Department Care Team (Late st Contact Info) Description 03/10/2023 8:30 AM EST Home Visit [facility] [address] [place] [address] Raquel Lopez, DIMPLE [address] [place] [address] 08/30/2023 1:40 PM EDT Office Visit [address] [phone] Tomasa Covington MD [address] [place] [address] [place] [address] 03/04/2024 1:00 PM EST Office Visit [address] [phone] Ivy Meier MD [address] [place] [address] [place] [address] Health Maintenance Due Date Last Done Comments [...] D LEVEL ONCE IN A LIFETIME-USE SMARTSET# [id number] Completed 02/15/2019, 08/16/2016, 02/11/2016, Additional history exists [...] Adult Child Health Care Joseph r of Sectionizer [email or web address] et Care Teams Gunite Mixer Relationship Specialty Start Date End Date Ivy Meier MD [address] [place] [address] [place] [phone] PCP - General Family Medicine 01/17/17 documented as of this encounter
--- OUTSIDE RECORDS SUMMARY | 2023-05-12 02:50 | External Medical Summary | Summary of Care ---
Author Name Unknown Organization [facility] Address [address] [place] [address] Phone [phone] Care Team Providers Care Mobility Manager Name Role Phone Ivy Meier MD Primary Care Provide r Reason for Visit * Reason Onset Date Comments Fax 03/03/2023 Encounter Details Date Type Department Care Team (Late st Contact Info) Description 03/03/2023 Telephone Family Medicine [address] [phone] Ivy Meier MD [address] [place] [address] [place] [address] Fax Allergies Active Allergy Reactions Criticality Noted Date Comments Naproxen 01/06/2001 Rash localized to forearms and flushing Niacin 11/27/2000 Rash localized to forearms documented as of this encounter (statuses as of 03/03/2023) Medications Medication Sig Dispensed Refills Start Date [...] as of this encounter (statuses as of 03/03/2023) Active Problems Problem Noted Date Diagnosed Date [...] worse along with may be little cellulitis. [facility] nurse behavioral health case manager saw the patient yesterday and [...] for a possible early cellulitis. Her nurse behavioral health case manager will call in checkup with [...] as of this encounter (statuses as of 03/03/2023) Resolved Problems Problem Noted Date Diagnosed Date [...] as of this encounter (statuses as of 03/03/2023) Immunizations Name Administration Dates Next Due COVID-19 mRNA, LNP-s, No Pre serve, 2-Dose Series (Pfizer) 06/19/2020,05/29/2020 Covid-19 Adenovirus, [place] 1 Vector, 2-dose Series, PF (AstraZeneca) 02/07/2022,04/01/2021 [...] encounter Miscellaneous Notes * Telephone Encounter - Snow Victoria CPhT - 03/03/2023 9:46 AM EST Pharmacy calling to request an updated medication list for the pt be faxed to [phone]. Thank you, Mariaelena Victoria Business Transformation Consultant I [facility] ([facility]) (Formerly Telepharmacy) 03/03/2023,9:47 AM documented in this encounter Plan of Treatment Upcoming Encounters Date Type Department Care Team (Late st Contact Info) Description 03/10/2023 8:30 AM EST [facility] [place] [address] Raquel Lopez, RN [address] [place] [address] 08/30/2023 1:40 PM EDT Office Visit [address] [phone] Tomasa Covington MD [address] [place] [address] [place] [address] 03/04/2024 1:00 PM EST Office Visit [address] [phone] Ivy Meier MD [address] [place] [address] [place] [address] Health Maintenance Due Date Last Done Comments [...] D LEVEL ONCE IN A LIFETIME-USE SMARTSET# [id number] Completed 02/15/2019, 08/16/2016, 02/11/2016, Additional history exists [...] Adult Child Health Care Joseph r of Mri Technologist [email or web address] et Care Teams Mobility Manager Relationship Specialty Start Date End Date Ivy Meier MD [address] [place] [address] [place] [phone] PCP - General Family Medicine 01/17/17 documented as of this encounter
--- OUTSIDE RECORDS SUMMARY | 2023-05-12 02:50 | External Medical Summary | Summary of Care ---
Author Name Unknown Organization [facility] Address [address] [place] [address] Phone [phone] Care Team Providers Care Disability Attorney Name Role Phone Ivy Meier MD Primary Care Provide r Reason for Visit * Reason Onset Date Comments Appointment 03/22/2023 Encounter Details Date Type Department Care Team (Late st Contact Info) Description 03/22/2023 Telephone [facility], [facility] [address] [place] [phone] Services, Scheduling [address] [place] [address] Appointment Allergies Active Allergy Reactions Criticality Noted Date Comments Naproxen 01/06/2001 Rash localized to forearms and flushing Niacin 11/27/2000 Rash localized to forearms documented as of this encounter (statuses as of 03/22/2023) Medications Medication Sig Dispensed Refills Start Date [...] as of this encounter (statuses as of 03/22/2023) Active Problems Problem Noted Date Diagnosed Date [...] worse along with may be little cellulitis. [facility] nurse catalytic case operator saw the patient yesterday and stated that [...] for a possible early cellulitis. Her nurse catalytic case operator will call in checkup with her later [...] as of this encounter (statuses as of 03/22/2023) Resolved Problems Problem Noted Date Diagnosed Date [...] as of this encounter (statuses as of 03/22/2023) Immunizations Name Administration Dates Next Due COVID-19 mRNA, LNP-s, No Pre serve, 2-Dose Series (Pfizer) 06/19/2020,05/29/2020 Covid-19 Adenovirus, [place] 1 Vector, 2-dose Series, PF (AstraZeneca) 02/07/2022,04/01/2021 [...] encounter Miscellaneous Notes * Telephone Encounter - Jodie Arora OSA - 03/22/2023 9:54 AM EST Scheduled appointment for AP/HERMILA on 05/02 at 2:30pm. Spoke to daughter, daughter did not want any appts until after the new year. Daughter agreeable to 05/02 appt. documented in this encounter Plan of Treatment Upcoming Encounters Date Type Department Care Team (Late st Contact Info) Description 04/14/2023 10:00 AM EST [facility] Visit [facility], [facility] [address] [facility] [place] [address] Raquel Lopez, RN 132 [facility] [place] [address] 05/02/2023 2:30 PM EST Telemedicine [facility], [facility] 132 [facility] [place] [address] Radha Marks CRNP 132 [place] [address] Glory Glez, Community Health Oil And Gas Superintendent [address] [place] [address] [place] [address] 08/30/2023 1:40 PM EDT Office Visit [address] [place] [address] Tomasa Covington MD [address] [place] [address] [place] [address] 03/04/2024 1:00 PM EST Office Visit [address] [place] [address] Ivy Meier MD [address] [place] [address] [place] [address] Health Maintenance Due Date Last Done Comments [...] D LEVEL ONCE IN A LIFETIME-USE SMARTSET# [id number] Completed 02/15/2019, 08/16/2016, 02/11/2016, Additional history exists [...] Adult Child Health Care Joseph r of Planer Stone [email or web address] et Care Teams Disability Attorney Relationship Specialty Start Date End Date Ivy Meier MD [address] [place] [address] [place] [phone] PCP - General Family Medicine 01/17/17 documented as of this encounter
--- OUTSIDE RECORDS SUMMARY | 2023-05-12 02:50 | External Medical Summary | Summary of Care ---
Author Name Unknown Organization [facility] Address [address] [place] [address] Phone [phone] Care Team Providers Care Quality System Manager Name Role Phone Ivy Meier MD Primary Care Provide r Encounter Details Date Type Department Care Team (Late st Contact Info) Description 03/01/2023 Telephone Family Medicine [address] [place] [address] [place] [address] Allergies Active Allergy Reactions Criticality Noted Date [...] worse along with may be little cellulitis. [facility] nurse case preparer and liner saw the patient yesterday and stated that [...] a possible early cellulitis. Her nurse case preparer and liner will call in checkup with her later [...] serve, 2-Dose Series (Pfizer) 06/19/2020,05/29/2020 Covid-19 Adenovirus, [place] 1 Vector, 2-dose Series, PF (AstraZeneca) 02/07/2022,04/01/2021 [...] Telephone Encounter - Hyun Correa LPN - 03/22/2023 2:21 PM EST Tomi Correa, Order [id number] for Milagro Mckoy (1935) has been delivered by [employer]. If you have any questions, please call . [facility] Team * Telephone Encounter - Hyun Correa LPN - 03/01/2023 10:51 AM EST Images from the original note were not included. [facility] documented in this encounter Plan of Treatment Upcoming Encounters Date Type Department Care Team (Late st Contact Info) Description 04/14/2023 10:00 AM EST [facility] Visit [facility] 132 [facility] [place] [address] Raquel Lopez, DIMPLE [address] [place] [address] 05/02/2023 2:30 PM EST Telemedicine [facility], [facility] 132 [facility] [place] [address] Radha Marks CRNP [address] [facility] [place] [address] Glory Glez, Community Health Microfiche Duplicator [address] [place] [address] [place] [address] 08/30/2023 1:40 PM EDT Office Visit [address] [phone] Tomasa Covington MD [address] [place] [address] [place] [address] 03/04/2024 1:00 PM EST Office Visit [address] [place] [phone] Ivy Meier MD [address] [place] [address] [place] [address] Health Maintenance Due Date Last Done Comments [...] D LEVEL ONCE IN A LIFETIME-USE SMARTSET# [id number] Completed 02/15/2019, 08/16/2016, 02/11/2016, Additional history exists [...] Adult Child Health Care Joseph r of Trench Digging Machine Operator [email or web address] Care Teams Quality System Manager Relationship Specialty Start Date End Date Ivy Meier MD [address] [place] [address] [place] [address] PCP - General Family Medicine 01/17/17 documented as of this encounter
--- OUTSIDE RECORDS SUMMARY | 2023-05-12 02:51 | External Medical Summary | Summary of Care ---
Author Name Unknown Organization [facility] Address [address] [place] [address] Phone [phone] Care Team Providers Care High Density Talc Coater Operator Name Role Phone Ivy Meier MD Primary Care Provide r Encounter Details Date Type Department Care Team (Late st Contact Info) Description 03/01/2023 Telephone Family Medicine [address] [place] [phone] [place] [address] Allergies Active Allergy Reactions Criticality Noted Date Comments Naproxen 01/06/2001 Rash localized to forearms and flushing Niacin 11/27/2000 Rash localized to forearms documented as of this encounter (statuses as of 03/01/2023) Medications Medication Sig Dispensed Refills Start Date [...] as of this encounter (statuses as of 03/01/2023) Active Problems Problem Noted Date Diagnosed Date [...] worse along with may be little cellulitis. [facility] nurse employment case manager saw the patient yesterday and [...] for a possible early cellulitis. Her nurse employment case manager will call in checkup with [...] as of this encounter (statuses as of 03/01/2023) Resolved Problems Problem Noted Date Diagnosed Date [...] as of this encounter (statuses as of 03/01/2023) Immunizations Name Administration Dates Next Due COVID-19 mRNA, LNP-s, No Pre serve, 2-Dose Series (Pfizer) 06/19/2020,05/29/2020 Covid-19 Adenovirus, [place] 1 Vector, 2-dose Series, PF (AstraZeneca) 02/07/2022,04/01/2021 [...] were not included. [facility] documented in this encounter Plan of Treatment Upcoming Encounters Date Type Department Care Team (Late st Contact Info) Description 03/10/2023 8:30 AM EST Home Visit [facility], [facility] [address] [place] [address] Raquel Lopez, DIMPLE [address] [place] [address] 08/30/2023 1:40 PM EDT Office Visit [address] [phone] Tomasa Covington MD [address] [place] [address] [place] [address] 03/04/2024 1:00 PM EST Office Visit [address] [phone] Ivy Meier MD [address] [place] [address] [place] [address] Health Maintenance Due Date Last Done Comments Depression Screening 05/22/2021 05/22/2020 COVID-19 Vaccine (3 - Pfizer risk series) 03/07/2022 02/07/2022, 04/01/2021, 06/19/2020, Additional history exists TSH 10/29/2023 10/28/2022, 0610/2022, 06/29/2022, Additional history exists DTaP,Tdap,and Td Vaccines (4 [...] D LEVEL ONCE IN A LIFETIME-USE SMARTSET# [id number] Completed 02/15/2019, 08/16/2016, 02/11/2016, Additional history exists [...] Adult Child Health Care Joseph r of Employment Case Manager [email or web address] Care Teams High Density Talc Coater Operator Relationship Specialty Start Date End Date Ivy Meier MD [address] [place] [address] [place] [phone] PCP - General Family Medicine 01/17/17 documented as of this encounter
--- OUTSIDE RECORDS SUMMARY | 2023-05-12 02:51 | External Medical Summary | Summary of Care ---
Author Name Unknown Organization [facility] Address [address] [place] [address] Phone [phone] Care Team Providers Care Bioinformatics Programmer Name Role Phone Ivy Meier MD Primary Care Provide r Reason for Visit * Reason Onset Date Comments Hospital Follow-Up Pt states fee ling "weak but not as weak", had good days Monday, Monday, and Monday. 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 90 Capsule 1 3 Active Famotidine 20 MG Oral Tablet (Pepcid) Take 1 Tablet by mouth in the morning and 1 Tablet before bedtime. 0 Active Docusate Sodium 100 MG Oral Capsule (Colace) Take 1 Capsule by mouth in the morning and 1 Capsule before bedtime. 0 Active Levothyroxine Sodium 100 MCG Oral Tablet (Levoxyl)Indicatio [...] the morning. 90 Tablet 1 3 Active Levothyroxine Sodium 100 MCG Oral Tablet (Levoxyl)Indicatio ns:Postsurgical hypothyroidism Take 1 Tablet by mouth in the morning. (at least 30 min prior to breakfast or other meds). 30 Tablet 5 3 02/29/20 Discontinued(Re fill) Dexamethasone 0.5 MG/5ML Oral Solution (Decadron)Indicati ons:Mucous membrane pemphigoid 5 ml twice daily (swish and spit) as needed during flares of mouth ulcers 240 mL 0 3 02/29/20 Discontinued Furosemide 20 MG Oral Tablet (Lasix) Take 1 Tablet by mouth in the morning and 1 Tablet before bedtime. 0 02/29/20 Discontinued(Re fill) Advanced Probiotic 10 Oral Capsule Take 2 Capsules by mouth in the morning. 0 02/29/20 Discontinued Potassium Chloride Eusebia ER 10 MEQ Oral Tablet Extended Release Take 1 Tablet by mouth in the morning. 0 02/29/20 Discontinued(Re fill) Gabapentin 100 MG Oral Capsule (Neurontin) Take 1 Capsule by mouth in the morning. 0 02/29/20 Discontinued traMADol HCl 50 MG Oral Tablet (Ultram) Take 0.5 Tablets by mouth every 6 hours as needed. 0 02/29/20 Discontinued documented as of this encounter (statuses as of 02/28/2023) Active Problems Problem Noted Date Diagnosed Date [...] little cellulitis. [facility] nurse family caseworker saw the patient yesterday and stated that [...] for a possible early cellulitis. Her nurse family caseworker will call in checkup with her later [...] as of this encounter (statuses as of 02/28/2023) Resolved Problems Problem Noted Date Diagnosed Date [...] CASE MANAGEMENT 12/19/200802/08 Overview: Evelyn Myers RN [phone] Edema 07/09/2007 02/04/2015 Postmenopausal bleeding 12/15/200501/22 Senile nuclear cataract 06/20/200507/24 POST SUBCAP SENILE CATAR 06/20/2005 Cataract extraction status 06/20/2005 0 06/12/2018 Keratoderma, acquired 10/01/20012015 NONTOX UNINODULAR GOITER Heartburn 02/04/2015 Other specified glaucoma 08/2022 PURE HYPERCHOLESTEROLEM /0 11/2008 Overview: Per Lipid Taxonomy. CARDIOVAS SYS SYMP NEC 02/04 documented as of this encounter (statuses as of 02/28/2023) Immunizations Name Administration Dates Next Due COVID-19 mRNA, LNP-s, No Pre serve, 2-Dose Series (Fablic) 06/19/2020,05/29/2020 Covid-19 Adenovirus, [place] 1 Vector, 2-dose Series, PF (AstrMyDoc) 02/07/2022,04/01/2021 DTaP Dipth/Tet/Acell Pertussis (Infanrix), Peds 07/24/2021 [...] and older)(Adacel) 07/24/2021 Varicella Zoster Vaccine (Adult) 02/18/2020,1005/2009 Zoster Vaccine Recombinant (Shingrix) 02/11/2020 ,11/08/2019 documented [...] money to buy more. Never true 09/26/19 Within the past 12 months, t he [...] Sign Reading Time Taken Comments Blood Pressure 116/62 02/28/2023 1:22 PM EST Pulse 86 02/28/2023 1:22 PM EST Temperature 36.6 C (97.8 F) 02/28/2023 1:22 PM ES T Respiratory Rate - - Oxygen Saturation 96% 02/28/2023 1:22 PM EST Inhaled Oxygen Concentration - - Weight - - Height - - Body Mass Index - - documented in this encounter Progress Notes * Kriss Mckay, - 02/28/2023 1:14 PM EST SUBJECTIVE: Milagro Mckoy is a 88 year old female. Chief Complaint Patient presents with Hospital Follow-Up Pt states feeling "weak but not as weak", had good days Monday, Monday, and Monday. Hospital Follow-Up Recent Admission: Patient was recently admitted to [facility] and [facility]. The date of discharge was Feb 11, 2023 and02/24/23. Discharge report received and reviewed. Admitted to [facility] with lymphedema and LLE cellulitis, atypical chest pain, and electrolyte abnormalities. Treated with antibiotics while inpatient, then discharged to [facility] for rehab. HPI: Milagro Mckoy presents today with her daughter Suzy for hospital discharge follow up. She has been home for the past 5 days. Her daughter has been staying with her. Daughter notes that she has two sores on her backside that are causing her pain. She was previously ordered a hospital bed for her lymphedema (to help keep her legs up) but this was returned because it was delivered when she was in the hospital. Home health is involved, as is [facility]. Her daughter notes she was given tramadol and gabapentin in [facility]. She has been taking extra strength tylenol since returning home. She has days that she is more awake and days that she is more tired. Today she is more tired. Her daughter notes that her leg swelling is down significantly since starting the lasix. Appetite is good. Myelofibrosis has been stable. Her bowels are moving well. 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 Cyanocobalamin (VITAMIN B 12) 100 MCG lozenge Take 2 Lozenges by mouth in the morning. Ferrous Sulfate 325 (65 Fe) MG Oral Tablet (Feosol) Take 1 Tab by mouth daily with breakfast. 30 Tab 5 Acetaminophen 500 MG Oral Tablet (Tylenol) Take 2 Tablets by mouth every 6 hours as needed. predniSONE 10 MG Oral Tablet (Deltasone) Take 1/2 to 1 tablet by mouth in the morning with food 90 Tablet 1 Polyethylene Glycol 3350 17 GM/SCOOP Oral Powder Take 17 g by mouth in the morning. Dissolve one heaping tablespoon in 8 ounces of water or juice.. Mycophenolate Mofetil 500 MG Oral Tablet (CellCept) 1 tablet daily 90 Tablet 1 Omeprazole 20 MG Oral Capsule Delayed Release (PriLOSEC) TAKE ONE CAPSULE BY MOUTH EVERY DAY ONE hour BEFORE first meal of THE DAY 30 Capsule 5 Linzess 145 MCG Oral Capsule (linaCLOtide) Take 1 Capsule by mouth daily before breakfast. 90 Capsule 1 Famotidine 20 MG Oral Tablet (Pepcid) Take 1 Tablet by mouth in the morning and 1 Tablet before bedtime. Docusate Sodium 100 MG Oral Capsule (Colace) Take 1 Capsule by mouth in the morning and 1 Capsule before bedtime. Levothyroxine Sodium 100 MCG Oral Tablet (Levoxyl) Take 1 Tablet by mouth in the morning. (at least30 min prior to breakfast or other meds). 90 Tablet 1 Furosemide 20 MG Oral Tablet (Lasix) Take 1 Tablet by mouth in the morning and 1 Tablet before bedtime. 180 Tablet 1 Potassium Chloride Eusebia ER 10 MEQ Oral Tablet Extended Release Take 1 Tablet by mouth in the morning. 90 Tablet 1 Dexamethasone 0.5 MG/5ML Oral Solution (Decadron) 5 ml twice daily (swish and spit) as needed during flares of mouth ulcers (Patient not taking: Reported on 02/28/2023) 240 mL 0 No current facility-administered medications for this visit. Current and discharge medications have been reconciled. Review of patient's allergies indicates: Allergen Reactions Naproxen Rash localized to forearms and flushing Niacin Rash localized to forearms OBJECTIVE: BP 116/62 | Pulse 86 | Temp 36.6 C (97.8 F) | SpO2 96% Review Of Systems: Skin: + see HPI Eyes: negative Ears/Nose/Throat: negative Respiratory: negative Cardiovascular: negative Gastrointestinal: negative Genitourinary: negative Musculoskeletal: (+) pain Neurologic: no focal deficit Psychiatric: negative Hematologic/Lymphatic/Immunologic: (+) myelofibrosis Endocrine: negative PHYSICAL EXAM: General: frail elderly female, in noticeable pain with movement. Heart: regular rate & rhythm Lungs: chest symmetric with normal AP diameter, no chest deformities noted, normal respiratory rateand rhythm Extremities: no joint deformities, effusion, or inflammation, moderate bilateral LE edema Skin: there is redness of the sacral region with two areas of skin breakdown. ASSESSMENT/ PLAN: Hospital discharge follow-up (Primary) - edema is improved. Will work on getting her hospital bed approved again for both her lymphedema and her decubitus wounds. - DISCH MED RECON CUR MED LIS Postsurgical hypothyroidism - Levothyroxine Sodium 100 MCG Oral Tablet (Levoxyl); Take 1 Tablet by mouth in the morning. (at least 30 min prior to breakfast or other meds). Myelofibrosis (HCC) - follows with Dr. Zhou. 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 Pressure injury of sacral region, stage 1 - DURABLE MEDICAL EQUIPMENT Lymphedema - DURABLE MEDICAL EQUIPMENT Electrolyte abnormality - BASIC METABOLIC PANEL; Future; Expected date: 02/28/2023 - MAGNESIUM; Future; Expected date: 02/28/2023 Other orders - Furosemide 20 MG Oral Tablet (Lasix); Take 1 Tablet by mouth in the morning and 1 Tablet before bedtime. - Potassium Chloride Eusebia ER 10 MEQ Oral Tablet Extended Release; Take 1 Tablet by mouth in the morning. Will stop her gabapentin. Daughter declined tramadol, but pending her pain level/control with the hospital bed, positioning, etc, may benefit from consideration of low dose tramadol as needed in the future. Follow-up: Return in about 6 months (around 08/29/2023). | Check-out note: Labs today for me and Dr. Zhou. 6 months follow up with Dr. Meier. Kriss Mckay DO documented in this encounter Plan of Treatment Upcoming Encounters Date Type Department Care Team (Late st Contact Info) Description 03/01/2023 8:50 AM EST Laboratory Lab Mobile Phlebotomy [facility] [place] [address] [place] [address] [facility] [place] [facility] [place] Draw [address] [place] [address] 03/10/2023 8:30 AM EST [facility] [place] [address] Raquel Lopez RN [address] [place] [address] Pending Results Name Type Priority Associated Diagnoses Date /Time BASIC METABOLIC PANEL Lab Routine Electrolyte abnormality 02/28/2023 2:02 PM EST MAGNESIUM Lab Routine Electrolyte abnormality 02/28/2023 2:02 PM EST Scheduled Orders Name Type Priority Associated Diagnoses Orde r Schedule BASIC METABOLIC PANEL Lab Routine Electrolyte abnormality Expected: 02/28/2023 (Approximate), Expires: 02/28/2024 MAGNESIUM Lab Routine Electrolyte abnormality Expected: 02/28/2023 (Approximate), Expires: 02/28/2024 Health Maintenance Due Date Last Done Comments Depression Screening 05/22/2021 05/22/2020 COVID-19 Vaccine (3 - Pfizer risk series) 03/07/2022 02/07/2022, 04/01/2021, 06/19/2020, Additional history exists TSH 10/29/2023 10/28/2022, 06/0 10/2022, 06/29/2022, Additional history exists DTaP,Tdap,and Td Vaccines (4 - Td or Tdap) 07/25/2031 07/24/2021, 07/24/2021, 08/20/2012 DXA Scan Discontinued 08/27/2014, 03/07/2012, 03/23/2010, Additional history exists Pneumococcal Vaccine: 65+ Years Completed 02/04/2015, 04/24/2003 *BISPHONATE OR OTHER ACCEPTABLE MEDICATION NEEDED FOR OSTEOPOROSIS (REFER TO SMARTSET #1146) Addressed 11/02/2017 (Not indicated) Overridden with the intention of not completing the topic VITAMIN D LEVEL ONCE IN A LIFETIME-USE SMARTSET# [id number] Completed 02/15/2019, 08/16/2016, 02/11/2016, Additional history exists [...] as of this encounter Visit Diagnoses Diagnosis Hospital discharge follow-up- Primary Other follow-up examination Postsurgical hypothyroidism Myelofibrosis (HCC) Myelofibrosis Glaucoma, unspecified glaucoma type, unspecified laterality Pulmonary hypertension, unspecified (HCC) 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 Care Teams Bioinformatics Programmer Relationship Specialty Start Date End Date Ivy Meier MD [address] [place] [address] [place] [address] PCP - General Family Medicine 01/17/17 documented as of this encounter
--- OUTSIDE RECORDS SUMMARY | 2023-05-12 02:51 | External Medical Summary ---
Author Name Unknown Address Unknown Organization K01:LABORATORY C - [address] [facility] [place] [address] Laboratory Report Ordering Provider Test Date Status MAOFU,FU 02/28/2023 14:10:41 Final Observation Date Value Abnormality Reference (Units ) Status SYNC LEUKOCYTES IN BLOOD BY AUTOMATED COUNT 02/28/2023 14:10:41 26.30 Above high normal 4.00-10.80 (K/uL) Final Neutrophils/100 leukocytes in Blood by Manual count 02/28/2023 14:10:41 85.0 Above high normal 40.0-75.0 (%) Final Lymphocytes/100 leukocytes in Blood by Manual count 02/28/2023 14:10:41 5.0 Below low normal 18.0-42.0 (%) Final Monocytes/100 leukocytes in Blood by Manual count 02/28/2023 14:10:41 4.0 1.0-11.0 (%) Final Eosinophils/100 leukocytes in Blood by Manual count 02/28/2023 14:10:41 2.0 0.0-6.0 (%) Final Basophils/100 leukocytes in Blood by Manual count 02/28/2023 14:10:41 1.0 0.0-2.0 (%) Final Metamyelocytes/100 leukocytes in Blood by Manual count 02/28/2023 14:10:41 3.0 Above high normal <=0.0 (%) Final Neutrophils [#/volume] in Blood by Manual count 02/28/2023 14:10:41 22.36 Above high normal 1.80-7.70 (K/uL) Final Lymphocytes [#/volume] in Blood by Manual count 02/28/2023 14:10:41 1.32 1.00-4.80 (K/uL) Final Monocytes [#/volume] in Blood by Manual count 02/28/2023 14:10:41 1.05 0.00-1.10 (K/uL) Final Eosinophils [#/volume] in Blood by Manual count 02/28/2023 14:10:41 0.53 0.00-0.70 (K/uL) Final Basophils [#/volume] in Blood by Manual count 02/28/2023 14:10:41 0.26 Above high normal 0.00-0.20 (K/uL) Final Metamyelocytes [#/volume] in Blood by Manual count 02/28/2023 14:10:41 0.79 Above high normal <=0.00 (K/uL) Final Neutrophils.vacuolated [Presence] in Blood by Light microscopy 02/28/2023 14:10:41 Present Abnormal None Seen Final Performing Location [facility] [place] [address] [facility] [address]
--- OUTSIDE RECORDS SUMMARY | 2023-05-12 02:51 | External Medical Summary | Summary of Care ---
Author Name Unknown Organization [facility] Address [address] [place] [address] Phone [phone] Care Team Providers Care Medical Lab Specialist Name Role Phone Ivy Meier MD Primary Care Provide r Reason for Visit * Reason Comments Outpatient Testing Encounter Details Date Type Department Care Team (Late st Contact Info) Description 02/28/2023 2:10 PM EST Laboratory Laboratory [address] [place] [phone] [place] [address] Electrolyte abnormality; Personal history of malignant neoplasm of other parts of uterus; Myeloproliferative disorder (HCC); Myelofibrosis (HCC) Allergies Active Allergy Reactions Criticality Noted Date [...] the morning. 90 Tablet 1 3 Active Dexamethasone 0.5 MG/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 5 ml twice daily (swish [...] worse along with may be little cellulitis. [facility] nurse social work case manager saw the patient yesterday and [...] for a possible early cellulitis. Her nurse social work case manager will call in checkup with [...] serve, 2-Dose Series (Pfizer) 06/19/2020,05/29/2020 Covid-19 Adenovirus, [place] 1 Vector, 2-dose Series, PF (AstraZeneca) 02/07/2022,04/01/2021 [...] 8:50 AM EST Laboratory Lab [place] [facility] [place] [address] [place] [address] [facility] [place] Mobile Home Draw [address] [place] [address] 03/10/2023 8:30 AM EST Home Visit [facility] [address] [facility] [place] [address] Raquel Lopez, DIMPLE [address] [place] [phone] Pending Results Name Type Priority Associated Diagnoses Date /Time BASIC METABOLIC PANEL Lab Routine Electrolyte abnormality 02/28/2023 2:02 PM EST MAGNESIUM Lab Routine Electrolyte abnormality 02/28/2023 2:02 PM EST CBC WITH WBC DIFFERENTIAL Lab Routine Personal history of malignant neoplasm of other parts of uterus Myeloproliferative disorder (HCC) Myelofibrosis (HCC) 02/28/2023 2:10 PM EST LD Lab Routine Personal history of malignant neoplasm of other parts of uterus Myeloproliferative disorder (HCC) Myelofibrosis (HCC) 02/28/2023 2:10 PM EST CBC Lab Routine Personal history of malignant neoplasm of other parts of uterus Myeloproliferative disorder (HCC) Myelofibrosis (HCC) 02/28/2023 2:10 PM EST DIFFERENTIAL, AUTOMATED Lab Routine Personal history of malignant neoplasm of other parts of uterus Myeloproliferative disorder (HCC) Myelofibrosis (HCC) 02/28/2023 2:10 PM EST Health Maintenance Due Date Last Done Comments Depression Screening 05/22/2021 05/22/2020 COVID-19 Vaccine (3 - Pfizer risk series) 03/07/2022 02/07/2022, 04/01/2021, 06/19/2020, Additional history exists TSH 10/29/2023 10/28/2022, 10/2022, 06/29/2022, Additional history exists DTaP,Tdap,and Td [...] D LEVEL ONCE IN A LIFETIME-USE SMARTSET# [id number] Completed 02/15/2019, 08/16/2016, 02/11/2016, Additional history exists [...] as of this encounter Visit Diagnoses Diagnosis Electrolyte abnormality Electrolyte and fluid disorders not elsewhere classified Personal history of malignant neoplasm of other parts of uterus Myeloproliferative disorder (HCC) 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 Myelofibrosis (HCC) Myelofibrosis documented in this encounter Additional Health Concerns Infection Onset Date Last Indicated Resolved Time COVID-19 (confirmed) 08/10/2021 08/10/2021 documented as of this encounter Advance Directives Healthcare Agents on File Name Relationship Healthcare Agent Relationship Communication Suzy Prado Adult Child Health Care Joseph r of Cable Respooler [email or web address] Care Teams Medical Lab Specialist Relationship Specialty Start Date End Date Ivy Meier MD [address] [place] [address] [place] [address] PCP - General Family Medicine 01/17/17 documented as of this encounter
--- OUTSIDE RECORDS SUMMARY | 2023-05-12 02:51 | External Medical Summary | Summary of Care ---
Author Name Unknown Organization [facility] Address [address] [place] [address] Phone [phone] Care Team Providers Care Gluten Settling Tender Name Role Phone Ivy Meier MD Primary Care Provide r Reason for Visit * Reason Onset Date Comments [facility]: Maintenance 02/23/2023 Encounter Details Date Type Department Care Team (Late st Contact Info) Description 02/23/2023 5:30 PM EDT Scheduled Telephone [facility], [facility] [address] [place] [facility] [address] Charisse Reinoso, [address] [facility] [place] [address] Allergies Active Allergy Reactions Criticality Noted Date Comments Naproxen 01/06/2001 Rash localized to forearms and flushing Niacin 11/27/2000 Rash localized to forearms documented as of this encounter (statuses as of 02/23/2023) Medications Medication Sig Dispensed Refills Start Date [...] of water or juice.. 0 09/26/2022 Active Levothyroxine Sodium 100 MCG Oral Tablet (Levoxyl)Indications: Postsurgical hypothyroidism Take 1 Tablet by mouth in the morning. (at least 30 min prior to breakfast or other meds). 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 90 Capsule 1 01/18/2023 Active documented as of this encounter (statuses as of 02/23/2023) Active Problems Problem Noted Date Diagnosed Date Chronic myeloproliferative disease 09/26/2022 BMI less than [...] worse along with may be little cellulitis. [facility] nurse case managers saw the patient yesterday and stated that [...] a possible early cellulitis. Her nurse case managers will call in checkup with her later [...] as of this encounter (statuses as of 02/23/2023) Resolved Problems Problem Noted Date Diagnosed Date [...] CASE MANAGEMENT 12/19/200802/08 Overview: Evelyn Myers RN [phone] Edema 07/09/2007 02/04/2015 Postmenopausal bleeding 12/15/200501/22 Senile nuclear cataract 06/20/200507/24 POST SUBCAP SENILE CATAR 06/20/2005 Cataract extraction status 06/20/2005 0 06/12/2018 Keratoderma, acquired 10/01/20012015 NONTOX UNINODULAR GOITER Heartburn 02/04/2015 Other specified glaucoma 08/2022 PURE HYPERCHOLESTEROLEM 12/0 11/2008 Overview: Per Lipid Taxonomy. CARDIOVAS SYS SYMP NEC 02/04 documented as of this encounter (statuses as of 02/23/2023) Immunizations Name Administration Dates Next Due COVID-19 mRNA, LNP-s, No Pre serve, 2-Dose Series ([employer] [place]) 06/19/2020,05/29/2020 Pneumococcal Conjugate Vacc, 13 Valent (Prevnar) 02/04/2015 [...] and older)(Adacel) 07/24/2021 Varicella Zoster Vaccine (Adult) 01/23/2010 Zoster Vaccine Recombinant (Shingrix) 02/11/2020 ,11/08/2019 documented [...] encounter Miscellaneous Notes * Telephone Encounter - Charisse Reinoso CM - 02/23/2023 11:39 AM EDT [facility]. Transferred to [facility] for Celia requesting a call back Incoming call from Celia at [facility]. PT was also approved for waiver . CW will set up HAM visit and route to care team as MICAH Reinoso National Secretary [facility] [email or web address] documented in this encounter Plan of Treatment Upcoming Encounters Date Type Department Care Team (Late st Contact Info) Description 02/28/2023 1:10 PM EST Office Visit Family Medicine [address] [place] [phone] Kriss Mckay [address] [place] [address] 03/01/2023 8:50 AM EST Laboratory Lab Mobile Phlebotomy [facility] [address] [place] [address] [facility], [facility] Mobile Home Draw [address] [place] [address] Health Maintenance Due Date Last Done Comments COVID-19 Vaccine (3 - Pfizer risk series) 07/17/2020 06/19/2020, 05/29/2020 Depression Screening 05/22/2021 05/22/2020 Influenza Vaccine (FLU shot) (#1) 2022 02/01/2021, 01/03/2020, 01/03/2020, Additional history exists TSH 10/29/2023 10/28/2022, 10/2022, 06/29/2022, Additional history exists DTaP,Tdap,and Td Vaccines (3 - Td or Tdap) 07/25/2031 07/24/2021, 08/20/2012 DXA Scan Discontinued 08/27/2014, 07/2012, 03/23/2010, Additional history exists Pneumococcal Vaccine: 65+ Years Completed 02/04/2015, 04/24/2003 *BISPHONATE OR OTHER ACCEPTABLE MEDICATION NEEDED FOR OSTEOPOROSIS (REFER TO SMARTSET #1146) Addressed 11/02/2017 (Not indicated) Overridden with the intention of not completing the topic VITAMIN D LEVEL ONCE IN A LIFETIME-USE SMARTSET# 21956 Completed 02/15/2019, 08/16/2016, 02/11/2016, Additional history exists Zoster Vaccines Completed 02/11/2020, 10/22, 01/23/2010 GARDASIL-HPV IMMUNIZATION SERIES Aged Out No longer [...] Adult Child Health Care Joseph r of Extruder Operator Multiple [email or web address] Care Teams Gluten Settling Tender Relationship Specialty Start Date End Date Ivy Meier MD [address] [place] [address] [place] [phone] PCP - General Family Medicine 01/17/17 documented as of this encounter
--- OUTSIDE RECORDS SUMMARY | 2023-05-12 02:51 | External Medical Summary | Summary of Care ---
Author Name Unknown Organization [facility] Address [address] [place] [address] Phone [phone] Care Team Providers Care Chief Dog License Inspector Name Role Phone Ivy Meier MD Primary Care Provide r Reason for Visit * Reason Comments Outpatient Testing Encounter Details Date Type Department Care Team (Late st Contact Info) Description 02/28/2023 2:10 PM EST Laboratory Laboratory [address] [place] [phone] [place] [address] Electrolyte abnormality; Personal history of malignant neoplasm of other parts of uterus; Myeloproliferative disorder (HCC); Myelofibrosis (HCC); Postsurgical hypothyroidism Allergies Active Allergy Reactions Criticality Noted Date [...] worse along with may be little cellulitis. [facility] nurse pillowcase sewer saw the patient yesterday and stated that [...] a possible early cellulitis. Her nurse pillowcase sewer will call in checkup with her later [...] serve, 2-Dose Series (Pfizer) 06/19/2020,05/29/2020 Covid-19 Adenovirus, [place] 1 Vector, 2-dose Series, PF (AstraZeneca) 02/07/2022,04/01/2021 [...] as of this encounter Miscellaneous Notes * Addendum Note - WhittakerMayito figueroa DO - 03/03/2023 10:08 AM ESTAddended by: MAYITO WHITTAKER on: 03/03/2023 10:08 AM Modules accepted: Orders documented in this encounter Plan of Treatment Upcoming Encounters Date Type Department Care Team (Late st Contact Info) Description 03/10/2023 8:30 AM EST Home Visit [facility] [address] [place] [address] Raquel Lopez, DIMPLE [address] [place] [address] 08/30/2023 1:40 PM EDT Office Visit [address] [phone] Tomasa Covington MD [address] [place] [address] [place] [address] 03/04/2024 1:00 PM EST Office Visit [address] [phone] Ivy Meier MD [address] [place] [address] [place] [address] Scheduled Orders Name Type Priority Associated Diagnoses Orde r Schedule TSH Lab Routine Postsurgical hypothyroidism Expected: 04/14/2023 (Approximate), Expires: 03/02/2024 Health Maintenance Due Date Last Done Comments [...] D LEVEL ONCE IN A LIFETIME-USE SMARTSET# 82481 Completed 02/15/2019, 08/16/2016, 02/11/2016, Additional history exists [...] Not on filedocumented as of this encounter Procedures Procedure Name Priority Date/Time Associated Diagnosis Comments DIFFERENTIAL, AUTOMATED Routine 02/28/2023 2:10 PM EST Personal history of malignant neoplasm of other parts of uterus Myeloproliferative disorder (HCC) Myelofibrosis (HCC) CBC Routine 02/28/2023 2:10 PM EST Personal history of malignant neoplasm of other parts of uterus Myeloproliferative disorder (HCC) Myelofibrosis (HCC) LD Routine 02/28/2023 2:10 PM EST Personal history of malignant neoplasm of other parts of uterus Myeloproliferative disorder (HCC) Myelofibrosis (HCC) CBC Routine 02/28/2023 2:10 PM EST Personal history of malignant neoplasm of other parts of uterus Myeloproliferative disorder (HCC) Myelofibrosis (HCC) DIFFERENTIAL, TECHNOLOGIST REVIEW Routine 02/28/2023 2:10 PM EST Personal history of malignant neoplasm of other parts of uterus Myeloproliferative disorder (HCC) Myelofibrosis (HCC) TSH Routine 02/28/2023 2:10 PM EST Postsurgical hypothyroidism BASIC METABOLIC PANEL Routine 02/28/2023 2:02 PM EST Electrolyte abnormality MAGNESIUM Routine 02/28/2023 2:02 PM EST Electrolyte abnormality documented in this encounter Results * (ABNORMAL) TSH (02/28/2023 2:10 PM EST) TSH 5.85(H) 0.27 - 4.20 uIU/mL 03/02/2023 12:07 PM EST [facility] Blood Venous blood specimen / Unknown Venipuncture / Unknown 02/28/2023 2:10 PM EST 02/28/2023 2:10 PM EST Mayito Whittaker DO LAB BLOOD ORDERABLES Performing Organization Address City/State/[facility] Co de Phone Number [facility] [address] [place] [address] * (ABNORMAL) DIFFERENTIAL, TECHNOLOGIST REVIEW (02/28/2023 2:10 PM EST) WBC 26.30(H) 4.00 - 10.80 K/uL 03/01/2023 1:59 AM EST [facility] Neutrophils % 85.0(H) 40.0 - 75.0 % 03/01/2023 1:59 AM EST [facility] Lymphocytes % 5.0(L) 18.0 - 42.0 % 03/01/2023 1:59 AM EST [facility] Monocytes % 4.0 1.0 - 11.0 % 03/01/2023 1:59 AM EST [facility] Eosinophils % 2.0 0.0 - 6.0 % 03/01/2023 1:59 AM EST [facility] Basophils % 1.0 0.0 - 2.0 % 03/01/2023 1:59 AM EST [facility] Metamyelocytes % 3.0(H) <=0.0 % 03/01/20 1:59 AM EST [facility] Absolute Neutrophils 22.36(H) 1.80 - 7.70 K/uL 03/01/2023 1:59 AM EST [facility] Absolute Lymphocytes 1.32 1.00 - 4.80 K/uL 03/01/2023 1:59 AM EST [facility] Absolute Monocytes 1.05 0.00 - 1.10 K/uL 03/01/2023 1:59 AM EST [facility] Absolute Eosinophils 0.53 0.00 - 0.70 K/uL 03/01/2023 1:59 AM EST [facility] Absolute Basophils 0.26(H) 0.00 - 0.20 K/uL 03/01/2023 1:59 AM EST [facility] Absolute Metamyelocytes 0.79(H) <=0.00 K/uL 03/01/2023 1:59 AM EST [facility] Vacuolated Neutrophils Present(A ) None Seen 03/01/2023 1:59 AM EST [facility] Blood Venous blood specimen / Unknown Venipuncture / Unknown 02/28/2023 2:10 PM EST 02/28/2023 2:10 PM EST Nancy Zhou MD LAB BLOOD ORDERABLES Performing Organization Address City/[facility] Co de Phone Number [facility] [address] [place] [address] * DIFFERENTIAL, AUTOMATED (02/28/2023 2:10 PM EST) Blood Venous blood specimen / Unknown Venipuncture / Unknown 02/28/2023 2:10 PM EST 02/28/2023 2:10 PM EST Nancy Zhou MD LAB BLOOD ORDERABLES [facility] [address] [place] [address] * (ABNORMAL) CBC (02/28/2023 2:10 PM EST) WBC 26.30(H) 4.00 - 10.80 K/uL 03/01/2023 1:59 AM EST [facility] RBC 2.65 3.85 - 5.15 M/uL 03/01/2023 1:59 AM EST [facility] HGB 9.8(L) 12.0 - 15.3 g/dL 03/01/2023 1:59 AM EST [facility] HCT 32.6(L) 36.0 - 45.2 % 03/01/2023 1:59 AM EST [facility] MCV 123.0 81.5 - 97.5 fL 03/01/2023 1:59 AM EST [facility] MCH 37.0 27.0 - 34.0 pg 03/01/2023 1:59 AM EST [facility] MCHC 30.1 32.0 - 36.0 g/dL 03/01/2023 1:59 AM EST [facility] RDW 26.2 11.5 - 15.5 % 03/01/2023 1:59 AM EST [facility] PLT 98(L) 140 - 400 K/uL 03/01/2023 1:59 AM EST [facility] MPV 11.4 6.6 - 11.1 fL 03/01/2023 1:59 AM EST [facility] nRBCs 1(H) <=0 /100 WBCs 03/01/2023 1:59 AM EST [facility] Blood Venous blood specimen / Unknown Venipuncture / Unknown 02/28/2023 2:10 PM EST 02/28/2023 2:10 PM EST Nancy Zhou MD LAB BLOOD ORDERABLES Performing Organization Address City/[facility]/ZIP Co de Phone Number [facility] [address] [place] [address] * LD (02/28/2023 2:10 PM EST) LD 236 <=250 U/L 03/01/2023 4:2 2 AM EST [facility] Blood Venous blood specimen / Unknown Venipuncture / Unknown 02/28/2023 2:10 PM EST 02/28/2023 2:10 PM EST Nancy Zhou MD LAB BLOOD ORDERABLES Performing Organization Address City/[facility]/ZIP Co de Phone Number [facility] [address] [place] [address] * MAGNESIUM (02/28/2023 2:02 PM EST) Magnesium 2.5 1.5 - 2.6 mg/dL 03/01/2023 4:20 AM EST [facility] Blood Venous blood specimen / Unknown Venipuncture / Unknown 02/28/2023 2:02 PM EST 02/28/2023 2:02 PM EST Mayito Whittaker DO LAB BLOOD ORDERABLES [facility] [address] [place] [address] * (ABNORMAL) BASIC METABOLIC PANEL (02/28/2023 2:02 PM EST) BUN 21(H) 6 - 20 mg/dL 03/01/2023 4:20 AM EST [facility] Creatinine 0.7 0.5 - 1.0 mg/dL 03/01/2023 4:20 AM EST [facility] Estimated Glomerular Filtration Rate 83 >=60 mL/min 03/01/2023 4:20 AM EST [facility] Comment:eGFR is calculated b ased on the CKD-EPI 2020 equation Sodium 133(L) 135 - 146 mmol/L 03/01/2023 4:20 AM EST [facility] Potassium 4.6 3.5 - 5.1 mmol/L 03/01/2023 4:20 AM EST [facility] Chloride 100 98 - 107 mmol/L 03/01/2023 4:20 AM EST [facility] CO2 25 22 - 32 mmol/L 03/01/2023 4:20 AM EST [facility] Anion Gap 8 7 - 15 mmol/L 03/01/2023 4:20 AM EST [facility] Glucose 100 70 - 120 mg/dL 03/01/2023 4:20 AM EST [facility] Calcium 9.1 8.4 - 10.2 mg/dL 03/01/2023 4:20 AM EST [facility] Blood Venous blood specimen / Unknown Venipuncture / Unknown 02/28/2023 2:02 PM EST 02/28/2023 2:02 PM EST Mayito Whittaker DO LAB BLOOD ORDERABLES [facility]ATORY [facility] [address] [facility] [address] documented in this encounter Visit Diagnoses Diagnosis Electrolyte abnormality Electrolyte and fluid disorders not elsewhere classified Personal history of malignant neoplasm of other parts of uterus Myeloproliferative disorder (HCC) 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 Care Teams Chief Dog License Inspector Relationship Specialty Start Date End Date Ivy Meier MD [address] [place] [address] [place] [id number] PCP - General Family Medicine 01/17/17 documented as of this encounter
--- OUTSIDE RECORDS SUMMARY | 2023-05-12 02:51 | External Medical Summary | Summary of Care ---
Author Name Unknown Organization [facility] Address [address] [place] [address] Phone [phone] Care Team Providers Care Spray Drier Operator Name Role Phone Ivy Meire MD Primary Care Provide r Reason for Visit * Reason Onset Date Comments [facility]: Maintenance 02/23/2023 Encounter Details Date Type Department Care Team (Late st Contact Info) Description 02/23/2023 5:30 PM EDT Scheduled Telephone [facility], [facility] [address] [place] [address] Charisse Reinoso, [address] [place] [facility] [place] [address] Allergies Active Allergy Reactions Criticality Noted Date [...] little cellulitis. [facility] nurse outpatient case manager saw the patient yesterday and [...] for a possible early cellulitis. Her nurse outpatient case manager will call in checkup with [...] CASE MANAGEMENT 12/19/200802/08 Overview: Evelyn Myers RN [phone] Edema 07/09/2007 02/04/2015 Postmenopausal bleeding 12/15/200501/22 Senile [...] mRNA, LNP-s, No Pre serve, 2-Dose Series ([employer]) 06/19/2020,05/29/2020 Pneumococcal Conjugate Vacc, 13 Valent (Prevnar) [...] 02/23/2023 11:39 AM EDT [facility]irmed that [facility] at facility. Transferred to [facility] for Celia requesting a call back Incoming call from Celia at [facility]. Pt will be dc home tomorrow back to her [place] setting. PT was also approved for waiver . CW will set up HAM visit and route to care team as FYI Call placed back to celia to make pt aware of Monday appt around 1130 but will let pt know that nurse will call before appt to confirm a time Charisse Reinoso Director Of Cardiac Rehabilitation [facility] [email or web address] documented in this encounter Plan of Treatment Upcoming Encounters Date Type Department Care Team (Late st Contact Info) Description 02/25/2023 11:30 AM EDT Home Visit [facility] [place], [address] [place] [address] [facility], Nurse [facility] [address] [place] [address] 02/28/2023 1:10 PM EST Office Visit Family Medicine [address] [place] [address] [place] [address] 03/01/2023 8:50 AM EST Laboratory Lab Mobile Phlebotomy [facility] [address] [place], [place] [phone] [facility] Mobile Home Draw [address] [place], [place] [id number] Health Maintenance Due Date Last Done Comments [...] D LEVEL ONCE IN A LIFETIME-USE SMARTSET# [id number] Completed 02/15/2019, 08/16/2016, 02/11/2016, Additional history exists [...] Adult Child Health Care Joseph r of Musical Engineer [email or web address] Care Teams Spray Drier Operator Relationship Specialty Start Date End Date Ivy Meier MD [address] [place] [address] [place] [address] PCP - General Family Medicine 01/17/17 documented as of this encounter
--- OUTSIDE RECORDS SUMMARY | 2023-05-12 02:51 | External Medical Summary ---
Author Name Unknown Address Unknown Organization K01:LABORATORY [facility] [address] [facility] [address] Laboratory Report Ordering Provider Test Date Status MAOFU,FU 02/28/2023 14:10:41 Final Observation Date Value Abnormality Reference (Units ) Status WBC, Total 02/28/2023 14:10:41 26.30 Above high normal 4.00-10.80 (K/uL) Final RBC 02/28/2023 14:10:41 2.65 3.85-5.15 (M/uL) Final Hemoglobin 02/28/2023 14:10:41 9.8 Below low normal 12.0-15.3 (g/dL) Final HCT 02/28/2023 14:10:41 32.6 Below low normal 36.0-45.2 (%) Final MCV 02/28/2023 14:10:41 123.0 81.5-97.5 (fL) Final MCH 02/28/2023 14:10:41 37.0 27.0-34.0 (pg) Final MCHC 02/28/2023 14:10:41 30.1 32.0-36.0 (g/dL) Final RDW 02/28/2023 14:10:41 26.2 11.5-15.5 (%) Final Platelets 02/28/2023 14:10:41 98 Below low normal 140-400 (K/uL) Final MPV 02/28/2023 14:10:41 11.4 6.6-11.1 (fL) Final Nucleated erythrocytes/100 leukocytes [Ratio] in Blood by Automated count 02/28/2023 14:10:41 1 Above high normal <=0 (/100 WBCs) Final Performing Location LABORATORY [facility] [address] [facility] [address]
--- OUTSIDE RECORDS SUMMARY | 2023-05-12 02:51 | External Medical Summary | Summary of Care ---
Author Name Unknown Organization [facility] Address [address] [place] [address] Phone [phone] Care Team Providers Care Contract Runner Name Role Phone Ivy Meier MD Primary Care Provide r Reason for Visit * Reason Onset Date Comments Home Health 02/27/2023 Encounter Details Date Type Department Care Team (Late st Contact Info) Description 02/27/2023 Telephone Family Medicine [address] [phone] Ivy Meier MD [address] [place] [address] [place] [address] Home Health Allergies Active Allergy Reactions Criticality Noted Date Comments Naproxen 01/06/2001 Rash localized to forearms and flushing Niacin 11/27/2000 Rash localized to forearms documented as of this encounter (statuses as of 03/02/2023) Medications Medication Sig Dispensed Refills Start Date [...] 0 Active predniSONE 10 MG Oral Tablet (Deltasone)Indicatio [...] 12/09/2022 Active Linzess 145 MCG Oral Capsule (linaCLOtide)Indicat [...] and 1 Capsule before bedtime. 0 Active documented as of this encounter (statuses as of 03/02/2023) Active Problems Problem Noted Date Diagnosed Date [...] worse along with may be little cellulitis. [facility] nurse foster care case manager saw the patient yesterday and [...] for a possible early cellulitis. 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 CARDIOVAS SYS SYMP NEC 02/04 documented as of this encounter (statuses as of 03/02/2023) Immunizations Name Administration Dates Next Due COVID-19 mRNA, LNP-s, No Pre serve, 2-Dose Series (Pfizer) 06/19/2020,05/29/2020 Covid-19 Adenovirus, [place] 1 Vector, 2-dose Series, PF (Astra[employer]en[employer] Sensors) 02/07/2022,04/01/2021 DTaP Dipth/Tet/Acell Pertussis (Infanrix), Peds 07/24/2021 [...] Telephone Encounter - Hyun Correa LPN - 03/02/2023 10:27 AM EST Faxed to [facility]. * Telephone Encounter - Ivy Meier MD - 02/27/2023 4:28 PM EST Can apply Allevyn type dressing to buttocks wounds and change every 3 days or as needed for soiling * Telephone Encounter - Marcia Alfonso LPN - 02/27/2023 4:04 PM EST PT/OT/ST Eval Start of Care/Continuation Victorino PT, Calling from: [facility] PT Plan of care: 2 times per week for 3 weeks: Then 1 times a week for 3 weeks Focusing on: endurance, transfer, gait training Concerns: yes Two open wounds on buttocks 1x0.5cm, stage 2 pressure ulcer/skin tear right arm skin tear from fall 1.5x1cm Narrative: Patient fell on Monday she got tangled up and fell, she did hit her head but she is not noting any symptoms to her head, she is just having back pain due to the fall. Victorino is requesting a verbal order for home health nurse assessment as she has open wounds on buttocks and right forearm skin tear. Verbal Given. Appointment in office scheduled for 02/28/[address] Mckay. He also stated that he would need to know if there would be any specific wound care orders. Call back [facility] with any advice or orders at Please fax new orders to [phone] Advised that additional visit orders will be signed by Ivy Meier MD and to fax to the office for signature * Telephone Encounter - Mariajose Mcguire OSA - 02/27/2023 3:54 PM EST Reason for patient's call: Victorino from PT [facility] Health Care requesting to speak with nurse Caller was transferred to Marcia at the nurse line. documented in this encounter Plan of Treatment Upcoming Encounters Date Type Department Care Team (Late st Contact Info) Description 03/10/2023 8:30 AM EST Home Visit [facility] [place], [facility] [address] [place] [address] Raquel Lopez RN [address] [place] [address] 08/30/2023 1:40 PM EDT Office Visit [address] [phone] Tomasa Covington MD [address] [place] [address] [place] [address] 03/04/2024 1:00 PM EST Office Visit Family Medicine [address] [place] [phone] Ivy Meier MD [address] [place] [address] [place] [address] Health Maintenance Due Date Last Done Comments [...] D LEVEL ONCE IN A LIFETIME-USE SMARTSET# 70687 Completed 02/15/2019, 08/16/2016, 02/11/2016, Additional history exists [...] Adult Child Health Care Joseph r of Travelers' Aid Worker [email or web address] et Care Teams Contract Runner Relationship Specialty Start Date End Date Ivy Meier MD [address] [place] [address] [place] [phone] PCP - General Family Medicine 01/17/17 documented as of this encounter
--- OUTSIDE RECORDS SUMMARY | 2023-05-12 02:51 | External Medical Summary | Summary of Care ---
Author Name Unknown Organization [facility] Address [address] [place] [address] Phone [phone] Care Team Providers Care Slasher Tender Name Role Phone Ivy Meier MD Primary Care Provide r Reason for Visit * Reason Onset Date Comments [facility]: Maintenance 02/23/2023 Encounter Details Date Type Department Care Team (Late st Contact Info) Description 02/23/2023 5:30 PM EDT Scheduled Telephone [facility], [facility] [address] [facility] [place] [address] Charisse Reinoso, [address] [facility] [place] [address] Allergies Active Allergy Reactions Criticality Noted Date [...] cellulitis. [facility] nurse case packer and sealer saw the patient yesterday and stated that [...] a possible early cellulitis. Her nurse case packer and sealer will call in checkup with her later [...] CASE MANAGEMENT 12/19/200802/08 Overview: Evelyn Myers RN [phone] Edema 07/09/2007 02/04/2015 Postmenopausal bleeding 12/15/200501/22 Senile [...] mRNA, LNP-s, No Pre serve, 2-Dose Series ([employer]) 06/19/2020,05/29/2020 Pneumococcal Conjugate Vacc, 13 Valent (Prevnar) [...] 02/23/2023 11:39 AM EDT [facility] at [facility]. Transferred to [facility] for Celia requesting a call back Charisse Reinoso Commercial Lines Insurance Agent [facility] [email or web address] documented in this encounter Plan of Treatment Upcoming Encounters Date Type Department Care Team (Late st Contact Info) Description 02/28/2023 1:10 PM EST Office Visit Family Medicine [address] [place] [phone] Kriss Mckay [address] [place] [address] 03/01/2023 8:50 AM EST Laboratory Lab Mobile Phlebotomy [facility] [address] [facility] [place] [address] [facility] Mobile Home Draw [address] [place] [address] Health Maintenance Due Date Last Done Comments [...] D LEVEL ONCE IN A LIFETIME-USE SMARTSET# [id number] Completed 02/15/2019, 08/16/2016, 02/11/2016, Additional history exists [...] Adult Child Health Care Joseph r of Research Hydraulic Engineer [email or web address] Care Teams Slasher Tender Relationship Specialty Start Date End Date Ivy Meier MD [address] [place] [address] [place] [phone] PCP - General Family Medicine 01/17/17 documented as of this encounter
--- OUTSIDE RECORDS SUMMARY | 2023-05-12 02:51 | External Medical Summary ---
Author Name Unknown Address Unknown Organization K01:[facility] [place] [address] [place] [address] [place] [address] Laboratory Report Ordering Provider Test Date Status MAYITOWHITTAKER 02/28/2023 14:10:41 Final Observation Date Value Abnormality Reference (Units ) Status TSH 02/28/2023 14:10:41 5.85 Above high normal 0. 27-4.20 (uIU/mL) Final Performing Location [facility] [place] [address] [place] [address]
--- OUTSIDE RECORDS SUMMARY | 2023-05-12 02:51 | External Medical Summary | Summary of Care ---
Author Name Unknown Organization [facility] Address [address] [place] [address] Phone [phone] Care Team Providers Care Dog Races Manager Name Role Phone Ivy Meier MD Primary Care Provide r Reason for Visit * Reason Comments [facility]: Maintenance Encounter Details Date Type Department Care Team (Late st Contact Info) Description 02/25/2023 11:30 AM EDT Home Visit [facility], [facility] [address] [facility] [place] [address] [facility], Nurse [facility] [address] [place] [address] Allergies Active Allergy Reactions Criticality Noted Date Comments Naproxen 01/06/2001 Rash localized to forearms and flushing Niacin 11/27/2000 Rash localized to forearms documented as of this encounter (statuses as of 02/25/2023) Medications Medication Sig Dispensed Refills Start Date [...] before breakfast. 90 Capsule 1 01/18/2023 Active Furosemide 20 MG Oral Tablet (Lasix) Take 1 Tablet by mouth in the morning and 1 Tablet before bedtime. 0 Active Famotidine 20 MG Oral Tablet (Pepcid) Take 1 Tablet by mouth in the morning and 1 Tablet before bedtime. 0 Active Docusate Sodium 100 MG Oral Capsule (Colace) Take 1 Capsule by mouth in the morning and 1 Capsule before bedtime. 0 Active Advanced Probiotic 10 Oral Capsule Take 2 Capsules by mouth in the morning. 0 Active Potassium Chloride Eusebia ER 20 MEQ Oral Tablet Extended Release Take 1 Tablet by mouth in the morning. 0 Active Gabapentin 100 MG Oral Capsule (Neurontin) Take 1 Capsule by mouth in the morning. 0 Active traMADol HCl 50 MG Oral Tablet (Ultram) Take 0.5 Tablets by mouth every 6 hours as needed. 0 Active documented as of this encounter (statuses as of 02/25/2023) Active Problems Problem Noted Date Diagnosed Date [...] be little cellulitis. [facility] nurse outpatient case manager saw the patient [...] as of this encounter (statuses as of 02/25/2023) Resolved Problems Problem Noted Date Diagnosed Date [...] as of this encounter (statuses as of 02/25/2023) Immunizations Name Administration Dates Next Due COVID-19 mRNA, LNP-s, No Pre serve, 2-Dose Series (Pfizer) 06/19/2020,05/29/2020 Pneumococcal Conjugate Vacc, 13 Valent (Prevnar) [...] Sign Reading Time Taken Comments Blood Pressure 104/62 02/25/2023 10:36 AM EDT Pulse 70 02/25/2023 10:36 AM EDT Temperature 36 C (96.8 F) 02/25/2023 10:36 AM EDT Respiratory Rate 18 02/25/2023 10:36 AM EDT Oxygen Saturation 95% 02/25/2023 10:36 AM EDT Inhaled Oxygen Concentration - - Weight - - Height - - Body Mass Index - - documented in this encounter Progress Notes * Aye Gonzalez RN - 02/25/2023 8:45 AM EDT [facility] [employer]re Bridge Operator HAM #1 Visit Date: 02/25/2023 Time: 8:45 AM Name: Milagro Mckoy : 1935 Current Concerns: Pt seen for HAM #1 Admitted to [facility] 01/28 - 02/11/23 Dx: lymphedema with suspected LLE cellulitis, atypical chest pain, hypokalemia, hypomagnesemia Discharged to [facility], [facility], following hospitalization for further rehab D/c home on 02/24/23 [facility] Home Health is starting on Monday for Sn, PT, OT Has PCP appt Monday Has Waiver program and she will have a visit Monday to discuss cg services Pt reports she is feeling a little stronger today Dtr present for visit and reports she is eating and drinking well, appetite is good today Pt did have a falls yesterday after getting home from SNF Dtr went to get groceries and pt got up on her own - thinks she may have tripped over some things that were on the floor by her chair. She did fall into a plant stand and has a skin tear on her right forearm She did hit her head she thinks but there is not tacho, bruising or hematomas noted Has stage 2 PU of right buttock measuring 2cm x 1 cm and also a stage 2 PU of left buttock measuring 0.5cm x 0.2cm - applied medihoney dressing and bordered gauze as provided by nursing facility. HH scheduled to come Monday and dtr will have them evaluate for further management Physical Exam: BP 104/62 | Pulse 70 | Temp 36 C (96.8 F) | Resp 18 | SpO2 95% Pain 0 Physical Exam Constitutional: General: She is not in acute distress. Cardiovascular: Rate and Rhythm: Normal rate and regular rhythm. Pulses: Normal pulses. Heart sounds: Normal heart sounds. Pulmonary: Effort: Pulmonary effort is normal. Breath sounds: Normal breath sounds. Abdominal: General: Bowel sounds are normal. Palpations: Abdomen is soft. Musculoskeletal: Right lower leg: Edema (trace) present. Left lower leg: Edema (trace) present. Skin: General: Skin is warm and dry. Neurological: Mental Status: She is alert and oriented to person, place, and time. Problems/Symptoms: Review of Systems Constitutional: Negative. HENT: Negative. Eyes: Negative. Respiratory: Negative. Cardiovascular: Positive for leg swelling. Gastrointestinal: Positive for constipation. Endocrine: Negative. Genitourinary: Negative. Musculoskeletal: Positive for arthralgias and gait problem. Skin: Positive for wound. Neurological: Positive for weakness (generalized). Hematological: Bruises/bleeds easily. Psychiatric/Behavioral: Negative. M,,,,,,,,,,,,,,,,,,,,,,n Medication Reconciliation: (See medication list) Does patient take medications as ordered: Yes Patient Well Being: PHQ2/9: No questionnaires available. No change in living situation Fall yesterday, as noted above [facility] Completed this Visit: Yes. [facility]: Reason Completed: Status post ED visit/hospital admission [facility] ([facility]) Fall Risk Assessment Tool Age 65+: Yes (02/25/23999) Diagnosis (3 or more co-existing): Yes (02/25/23999) Prior history of falls within 3 months: Yes (02/25/23999) Incontinence: Yes (02/25/23999) Visual impairment: No (02/25/23999) Impaired functional mobility: Yes (02/25/23999) Environmental hazards: Yes (02/25/23999) Poly Pharmacy (4 or more prescriptions - any type): Yes (02/25/23999) Pain affecting level of function: No (02/25/23999) Cognitive impairment: No (02/25/23999) Score - a score of 4 or more is considered at risk for fallin (02/25/23999) [facility] Interventions: Fall education provided, reviewed/provided Fall brochure Advanced Care Planning: POLST. Reinforcement/Education: Educated on home safety: Create a fall proof home Clear floors of clutter, loose wires, throw rugs, and cords. Make sure halls, stairways, and entrances are well lit. Install a nightlight in your bedroom, hallway and bathroom. Install grab bars or handrails in the bathroom and on stairs. Use a non-skid tub/shower mat. Avoid climbing on a chair; instead use a step stool with a high handrail. Keep sidewalks and steps in good repair Keep steps and sidewalks free of snow and ice. Using aids to support and prevent falls If you have poor balance or have fallen in the past, consider additional support such as a cane or walker. Use a cane with good support and that is the proper length for you. Use a walker if a cane doesnt provide enough support. Avoid medications that increase the risk of falling by causing dizziness, change in sensation or slowed reflexes. Certain medicines may cause falls - blood pressure pills, heart medicines, water pills, or sleepingpills. Be sure to understand each medicine that you are taking and any side effects that may occur. Improve your balance and flexibility with muscle strengthening exercises. Ask your health care provider for some exercises that will be right for you. Reinforced safety education and fall prevention. and Reinforced medication regimen. Timing., Dosing., and Purspose. Treatment/Plan: [facility] for SN, PT, OT - wound management Elevate ble- edema Low na diet Continue medications as prescribed Keep all upcoming MD appointments Fall precautions- walker with ambulation Home Interventions Provided: Home Intervention: Wound Care and Other; Eval Reinforced current Plan of Care, including self-management and medication regimen Patient's 'Red Flags': Increased weakness, fatigue No bm in 3 days fever Patient Needs to Remember: Call [facility] at with any new or worsening health concerns or problems, red flag symptoms. Referrals Needed: Other none Follow Up: Is there cellular connectivity/connectivity in the home? Yes Does the patient have internet in the home? No Patient encouraged to call the intake phone number for all urgent but not emergent issues. Is the patient new to [facility] within the last 30 days? No, Assess appropriateness for upcoming telehealth visits. Cancel telehealth visits & schedule home visit with care support team assoc(s)as indicated. Provider is in agreement with Plan of Care: Yes Scheduled to follow up with patient in 1-2 weeks. Aye Gonzalez RN 02/25/2023 8:45 AM documented in this encounter Plan of Treatment Upcoming Encounters Date Type Department Care Team (Late st Contact Info) Description 02/28/2023 1:10 PM EST Office Visit Family Medicine [address] [place] [phone] Kriss Mckay[address] [place] [address] 03/01/2023 8:50 AM EST Laboratory Lab Mobile Phlebotomy [facility] [address] [place] [address] [facility] Mobile Home Draw [address] [place] [address] 03/10/2023 8:30 AM EST Home Visit [facility] [address] [facility] [place] [address] Raquel Lopez RN [address] [facility] [place] [address] Health Maintenance Due Date Last Done Comments [...] MEDICATION NEEDED FOR OSTEOPOROSIS (REFER TO SMARTSET #8246) Addressed 11/02/2017 (Not indicated) Overridden with the intention of not completing the topic VITAMIN D LEVEL ONCE IN A LIFETIME-USE SMARTSET# 28209 Completed 02/15/2019, 08/16/2016, 02/11/2016, Additional history exists [...] Adult Child Health Care Joseph r of Hat Stock Laminating Machine Operator [email or web address] et Care Teams Dog Races Manager Relationship Specialty Start Date End Date Ivy Meier MD [address] [place] [address] [place] [address] PCP - General Family Medicine 01/17/17 documented as of this encounter"
--- OUTSIDE RECORDS SUMMARY | 2023-05-12 02:51 | External Medical Summary ---
Author Name Unknown Address Unknown Organization K01:[facility] [place] [address] [place] [address] Laboratory Report Ordering Provider Test Date Status REMEDIOS EDMOND 02/28/2023 14:02:58 Final Observation Date Value Abnormality Reference (Units ) Status BUN 02/28/2023 14:02:58 21 Above high normal 6-20 (mg/dL) Final Creatinine 02/28/2023 14:02:58 0.7 0.5-1.0 (mg/dL) Final Glomerular filtration rate/1.73 sq M.predicted [Volume Rate/Area] in Serum, Plasma or Blood by Creatinine-based formula (CKD-EPI) 02/28/2023 14:02:58 83 >=60 (mL/min) Final eGFR is calculated based on the CKD-EPI 2020 equation SODIUM 02/28/2023 14:02:58 133 Below low normal 135 -146 (mmol/L) Final Potassium 02/28/2023 14:02:58 4.6 3.5-5.1 (m mol/L) Final Cl 02/28/2023 14:02:58 100 98-107 (mm ol/L) Final CO2 02/28/2023 14:02:58 25 22-32 (mmo l/L) Final Anion gap 02/28/2023 14:02:58 8 7-15 (mmol /L) Final Glucose 02/28/2023 14:02:58 100 70-120 (mg /dL) Final Calcium 02/28/2023 14:02:58 9.1 8.4-10.2 ( mg/dL) Final Performing Location [facility] [place] [address] [place] [address]
--- OUTSIDE RECORDS SUMMARY | 2023-05-12 02:51 | External Medical Summary ---
Author Name Unknown Address Unknown Organization K01:[facility] [place] [address] [place] [address] Laboratory Report Ordering Provider Test Date Status REMEDIOS EDMOND 02/28/2023 14:02:58 Final Observation Date Value Abnormality Reference (Units ) Status Magnesium 02/28/2023 14:02:58 2.5 1.5-2.6 (m g/dL) Final Performing Location [facility] [address] [facility] [address]
--- OUTSIDE RECORDS SUMMARY | 2023-05-12 02:51 | External Medical Summary | Summary of Care ---
Author Name Unknown Organization [facility] Address [address] [place] [address] Phone [phone] Care Team Providers Care Seed Expert Name Role Phone Ivy Meier MD Primary Care Provide r Reason for Visit * Reason Comments Outpatient Testing Encounter Details Date Type Department Care Team (Late st Contact Info) Description 02/28/2023 2:10 PM EST Laboratory Laboratory [address] [place] [phone] [place] [address] Electrolyte abnormality; Personal history of malignant neoplasm [...] worse along with may be little cellulitis. [facility] nurse wrapper caser saw the patient yesterday and stated [...] for a possible early cellulitis. Her nurse wrapper caser will call in checkup with her [...] serve, 2-Dose Series (Pfizer) 06/19/2020,05/29/2020 Covid-19 Adenovirus, [place] 1 Vector, 2-dose Series, PF (AstraZeneca) 02/07/2022,04/01/2021 [...] AM EST Laboratory Lab Mobile Phlebotomy [facility] [address] [place] [address] [facility], [facility] Mobile Home Draw [address] [place] [address] 03/10/2023 8:30 AM EST Home Visit [facility] [address] [facility] [place] [address] Raquel Lopez, DIMPLE [address] [place] [address] Pending Results Name Type Priority Associated Diagnoses [...] D LEVEL ONCE IN A LIFETIME-USE SMARTSET# [id number] Completed 02/15/2019, 08/16/2016, 02/11/2016, Additional history exists [...] Adult Child Health Care Joseph r of Software Quality Tester [email or web address] Care Teams Seed Expert Relationship Specialty Start Date End Date Ivy Meier MD [address] [place] [address] [place] [address] PCP - General Family Medicine 01/17/17 documented as of this encounter
--- OUTSIDE RECORDS SUMMARY | 2023-05-12 02:51 | External Medical Summary ---
Author Name Unknown Address Unknown Organization K01:LABORATORY [facility] - [address] [place] [address] Laboratory Report Ordering Provider Test Date Status MAORUBEN,FU 02/28/2023 14:10:41 Final Observation Date Value Abnormality Reference (Units ) Status LDH 02/28/2023 14:10:41 236 <=250 (U/L ) Final Performing Location LAB[facility]ATORY [facility] - [address] [place] [address]
--- OUTSIDE RECORDS SUMMARY | 2023-05-12 02:52 | External Medical Summary | Summary of Care ---
Author Name Unknown Organization [facility] Address [address] [place] [address] Phone [phone] Care Team Providers Care Airport Operations Manager Name Role Phone Ivy Meier MD Primary Care Provide r Reason for Visit * Reason Onset Date Comments Home Health 01/27/2023 Encounter Details Date Type Department Care Team Description 01/27/2023 Telephone Family Medicine [address] [place] [id number] Ivy Meier MD [address] [place] [address] [place] Dom[place]ng[place] [address] Home Health Allergies Active Allergy Reactions Severity Noted Date Comments Naproxen 01/06/2001 Rash localized to forearms and flushing Niacin 11/27/2000 Rash localized to forearms documented as of this encounter (statuses as of 02/08/2023) Medications Medication Sig Dispensed Refills Start Date [...] as of this encounter (statuses as of 02/08/2023) Active Problems Problem Noted Date Chronic myeloproliferative disease 09/26 BMI less than 19,adult 09/26/2022 Gastroesophageal reflux disease 09/09/19 22 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 Received a call today from home health nurse that reported that it may be getting worse along with may be little cellulitis. [facility] nurse case planner saw the patient yesterday and stated that [...] a possible early cellulitis. Her nurse case planner will call in checkup with her later this week. 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), Luis Carlos (L forearm, R proximal forearm 03/12, L dorsal hand 03/12), Bowenoid AKs Postsurgical hypothyroidism 08/25/2008 History of ovarian cancer 05/25/2006 Slow transit constipation 11/15/2002 Senile osteoporosis Hypercalcemia Hyperparathyroidism Overview: ICD-10 update of inactive term documented as of this encounter (statuses as of 02/08/2023) Resolved Problems Problem Noted Date Resolved Date Myelofibrosis 10/12/2020 10/21/2021 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 Dyslipidemia, goal LDL below 130 03/31/2009 05/22/2020 Overview: Per Lipid Taxonomy. 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 CARDIOVAS SYS SYMP NEC 5 documented as of this encounter (statuses as of 02/08/2023) Immunizations Name Administration Dates Next Due COVID-19 [...] drink = 0.6 oz pur e alcohol) Food Insecurity Answer Date Recorded Within the past 12 months, y ou worried that your food would run out before you got money to buy more. Never true 09/25/2022 Within the past 12 months, t he food you bought just didn't last and you didn't have money to get more. Never true 09/25/2022 Sex Assigned at Date Recorded Female 09/25/2022 7:21 PM E DT Job Start Date Occupation Industry Not on file Not on file Not on file documented as of this encounter Miscellaneous Notes * Telephone Encounter - Ivy Meier MD - 01/27/2023 4:47 PM EDT Noted. Thank you. Agree with hospital bed. She has very low protein levels that is likely contributing to her edema. Keep follow-up as scheduled. * Telephone Encounter - Tamra Moran LPN - 01/27/2023 1:46 PM EDT Natty - Lymphedema Therapist [facility] Calling with an update Seeing patient since 01/06/23 Tried compression pumps, garments and manual lymph drainage massage and patient has not been able to tolerate any of it because of the pain, patient is very sensitive to touch They did order her a hospital bed to help her get her legs elevated more Natty states that patients legs have slowly got worse over the past month and their treatments havedone nothing at this point Today was Natty's last visit with patient [facility] will continue to see patient 1 time a week for the next 2 weeks Please fax any new orders to [phone] No need to call her back documented in this encounter Plan of Treatment Upcoming Encounters Date Type Specialty Care Team Description 02/15/2023 Home Visit [facility] Raquel Lopez RN [address] [place] [id number] 02/27/2023 Laboratory Laboratory Processing [facility] [place] Draw [address] [facility] [address] Health Maintenance Due Date Last Done Comments [...] D LEVEL ONCE IN A LIFETIME-USE SMARTSET# [id number] Completed 02/15/2019, 08/16/2016, 02/11/2016, Additional history exists [...] Name Relationship Healthcare Agent Relationship Communication Suzy Petrosky Adult Child Health Care Joseph r of Construction Site Manager [email or web address] Care Teams Airport Operations Manager Relationship Specialty Start Date End Date Ivy Meier MD [address] [place] [address] [place] Domínguez [address] PCP - General Family Medicine 01/17/17 documented as of this encounter
--- OUTSIDE RECORDS SUMMARY | 2023-05-12 02:52 | External Medical Summary | Summary of Care ---
Author Name Unknown Organization [facility] Address [address] [place] [address] Phone [phone] Care Team Providers Care Program Services Planner Name Role Phone Ivy Meier MD Primary Care Provide r Reason for Visit * Reason Onset Date Comments Advice 01/20/2023 Waiver program f orm Encounter Details Date Type Department Care Team Description 01/20/2023 Telephone Family Medicine [address] [place] [address] Ivy Meier MD [address] [place] [address] [place] Domínguez [address] Advice (Waiver program form) Allergies Active Allergy Reactions Severity Noted Date Comments Naproxen 01/06/2001 Rash localized to forearms and flushing Niacin 11/27/2000 Rash localized to forearms documented as of this encounter (statuses as of 02/01/2023) Medications Medication Sig Dispensed Refills Start Date [...] as of this encounter (statuses as of 02/01/2023) Active Problems Problem Noted Date Chronic myeloproliferative [...] worse along with may be little cellulitis. [facility] nurse piano case and bench assembler saw the patient yesterday and stated [...] for a possible early cellulitis. 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 CARDIOVAS SYS SYMP NEC 5 documented as of this encounter (statuses as of 02/01/2023) Immunizations Name Administration Dates Next Due COVID-19 [...] encounter Miscellaneous Notes * Telephone Encounter - ELIZABETH Haque - 02/01/2023 9:52 AM EDT Pts daughter is calling in regards to speaking to someone in the office about above listed forms.She will like a call back to explain what forms needed to be sent please contact her back star. Patient Contact: * Telephone Encounter - Nelda Martin RN - 01/31/2023 2:29 PM EDT I refaxed what we have * Telephone Encounter - ELIZABETH Cevallos - 01/26/2023 1:49 PM EDT Pt's daughter calling stating that the waiver services form received was incomplete. Please check form for completion and refax to [facility] fax [phone]. * Telephone Encounter - Binta Blanco LPN - 01/20/2023 1:55 PM EDT This was sent to our [place] office. Wasn't sure of your social secretary pool. * Telephone Encounter - ELIZABETH Hernandez - 01/20/2023 1:37 PM EDT [place] [facility] calling to inform clinic that they faxed over the wrong page for the referral - they are in need of the 1st page with ICD Tin code (??), etc. - I advised her to use fax [phone] for forms documented in this encounter Plan of Treatment Upcoming Encounters Date Type Specialty Care Team Description 02/15/2023 Home Visit [facility] Raquel Lopez, RN [address] [place] [place] [address] 02/27/2023 Laboratory Laboratory Processing [facility] [place] Mobile Home Draw [address] [place] [address] Health Maintenance Due Date Last Done Comments COVID-19 Vaccine (3 - Pfizer risk series) 07/17/2020 06/19/2020, 05/29/2020 Depression Screening 05/22/2021 05/22/2020 Influenza Vaccine (FLU shot) (#1) 2022 02/01/2021, 01/03/2020, 01/03/2020, Additional history exists TSH 10/29/2023 10/28/2022, 0610/2022, [...] D LEVEL ONCE IN A LIFETIME-USE SMARTSET# [id number] Completed 02/15/2019, 08/16/2016, 02/11/2016, Additional history exists [...] Adult Child Health Care Joseph r of Box Coverer Hand [email or web address] Care Teams Program Services Planner Relationship Specialty Start Date End Date Ivy Meier MD [address] [place] [address] [place] Domínguez [address] PCP - General Family Medicine 01/17/17 documented as of this encounter
--- OUTSIDE RECORDS SUMMARY | 2023-05-12 02:52 | External Medical Summary | Summary of Care ---
Author Name Unknown Organization [facility] Address [address] [place] [address] Phone [phone] Care Team Providers Care Materials Clerk Name Role Phone Ivy Meier MD Primary Care Provide r Reason for Visit * Reason Onset Date Comments [facility]: Maintenance 02/13/2023 Encounter Details Date Type Department Care Team (Late st Contact Info) Description 02/13/2023 Telephone [facility], [facility] [address] [facility] [place] [address] [facility], Nurse [facility] [address] [place] [address] [facility]: Maintenance Allergies Active Allergy Reactions Criticality Noted Date Comments Naproxen 01/06/2001 Rash localized to forearms and flushing Niacin 11/27/2000 Rash localized to forearms documented as of this encounter (statuses as of 02/13/2023) Medications Medication Sig Dispensed Refills Start Date [...] as of this encounter (statuses as of 02/13/2023) Active Problems Problem Noted Date Diagnosed Date [...] worse along with may be little cellulitis. [facility] nurse bilingual case manager saw the patient yesterday and [...] for a possible early cellulitis. Her nurse bilingual case manager will call in checkup with [...] as of this encounter (statuses as of 02/13/2023) Resolved Problems Problem Noted Date Diagnosed Date [...] CASE MANAGEMENT 12/19/200802/08 Overview: Evelyn Myers RN [phone] Edema 07/09/2007 02/04/2015 Postmenopausal bleeding 12/15/200501/22 Senile nuclear cataract 06/20/200507/24 POST SUBCAP SENILE CATAR 06/20/2005 Cataract extraction status 06/20/2005 0 06/12/2018 Keratoderma, acquired 10/01/20012015 NONTOX UNINODULAR GOITER Heartburn 02/04/2015 Other specified glaucoma 08/2022 PURE HYPERCHOLESTEROLEM 12/0 11/2008 Overview: Per Lipid Taxonomy. CARDIOVAS SYS SYMP NEC 02/04 documented as of this encounter (statuses as of 02/13/2023) Immunizations Name Administration Dates Next Due COVID-19 mRNA, LNP-s, No Pre serve, 2-Dose Series (Freightos) 06/19/2020,05/29/2020 Pneumococcal Conjugate Vacc, 13 Valent (Prevnar) [...] encounter Miscellaneous Notes * Telephone Encounter - Slime Holguin LPN - 02/13/2023 1:01 PM EDT Patient d/c from [facility] to [facility] Will add to AJITH Reinoso's schedule for 1 week follow up call documented in this encounter Plan of Treatment Upcoming Encounters Date Type Department Care Team (Late st Contact Info) Description 02/15/2023 11:00 AM EDT Home Visit [facility], [facility] [address] [place] [address] Raquel Lopez RN [address] [place] [address] 02/20/2023 12:00 PM EDT Scheduled Telephone [facility], [facility] [address] [facility] [place] [address] Charisse Reinoso CM [address] [facility] [place] [address] 02/27/2023 8:00 AM EST Laboratory Lab Mobile Phlebotomy [facility] [address] [place] [address] [facility] [place] [facility] Mobile Home Draw [address] [place] [address] Health Maintenance Due Date Last Done Comments [...] D LEVEL ONCE IN A LIFETIME-USE SMARTSET# [id number] Completed 02/15/2019, 08/16/2016, 02/11/2016, Additional history exists [...] Adult Child Health Care Joseph r of Chimney Builder [email or web address] Care Teams Materials Clerk Relationship Specialty Start Date End Date Ivy Meier MD [address] [place] [address] [place] Domínguez [phone] PCP - General Family Medicine 01/17/17 documented as of this encounter
--- OUTSIDE RECORDS SUMMARY | 2023-05-12 02:52 | External Medical Summary | Summary of Care ---
Author Name Unknown Organization [facility] Address [address] [place] [address] Phone [phone] Care Team Providers Care Bronze Chaser Name Role Phone Ivy Meier MD Primary Care Provide r Reason for Visit * Reason Onset Date Comments Advice 01/20/2023 Waiver program f orm Encounter Details Date Type Department Care Team Description 01/20/2023 Telephone Family Medicine [address] [place] [address] Ivy Meier MD [address] [place] [address] [place] [address] Advice (Waiver program form) [...] along with may be little cellulitis. [facility] nurse casework supervisor saw the patient yesterday and stated that [...] for a possible early cellulitis. Her nurse casework supervisor will call in checkup with her later [...] MANAGEMENT 12/19/2008 0 Overview: Evelyn Myers RN [phone] Edema 07/09/2007 02/04/2015 Postmenopausal bleeding 12/15/2005 02/05/20 [...] for completion and refax to [facility] fax [phone]. * Telephone Encounter - Binta Blanco LPN - 01/20/2023 1:55 PM EDT This was sent to our [place] office. Wasn't sure of your reptile farmer pool. * Telephone Encounter - ELIZABETH Hernandez - 01/20/2023 1:37 PM EDT [place] [facility] calling to inform clinic that they faxed over the wrong page for the referral - they are in need of the 1st page with ICD Tin code (??), etc. - I advised her to use fax [phone] for forms documented in this encounter Plan of Treatment Upcoming Encounters Date Type Specialty Care Team Description 02/15/2023 Home Visit [facility] Raquel Lopez, RN [address] [facility] [place] [address] 02/27/2023 Laboratory Laboratory Processing [facility] [place] [facility], [facility] Mobile Home Draw [address] [place] [address] Health Maintenance Due Date Last Done Comments [...] D LEVEL ONCE IN A LIFETIME-USE SMARTSET# [id number] Completed 02/15/2019, 08/16/2016, 02/11/2016, Additional history exists [...] Adult Child Health Care Joseph r of Dielectric Tester [email or web address] Care Teams Bronze Chaser Relationship Specialty Start Date End Date Ivy Meier MD [address] [place] [address] [place] Domíng[place] [address] PCP - General Family Medicine 01/17/17 documented as of this encounter
--- OUTSIDE RECORDS SUMMARY | 2023-05-12 02:52 | External Medical Summary | Summary of Care ---
Author Name Unknown Organization [facility] Address [address] [place] [address] Phone [phone] Care Team Providers Care Paving Supervisor Name Role Phone Ivy Meier MD Primary Care Provide r Reason for Visit * Reason Comments Medical Nutrition Therapy Encounter Details Date Type Department Care Team Description 01/24/2023 Nutrition Services [facility], [facility] [address] [place] [facility] [place] [address] Ashley Light, RDN [address] [place] [address] Mild protein-calorie malnutrition (HCC)* Allergies Active Allergy Reactions Severity Noted Date Comments Naproxen 01/06/2001 Rash localized to forearms and flushing Niacin 11/27/2000 Rash localized to forearms documented as of this encounter (statuses as of 01/24/2023) Medications Medication Sig Dispensed Refills Start Date [...] as of this encounter (statuses as of 01/24/2023) Active Problems Problem Noted Date Chronic myeloproliferative [...] worse along with may be little cellulitis. 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 CARDIOVAS SYS SYMP NEC 5 documented as of this encounter (statuses as of 01/24/2023) Immunizations Name Administration Dates Next Due COVID-19 [...] as of this encounter Progress Notes * Ashley Light RDN - 01/24/2023 11:22 AM EDT NUTRITION PROGRESS NOTE - ISING AT HOME TELEPHONIC [facility] [email or web address] [facility] Patient Phone Numbers: [phone] (Home Phone) [phone] (Work Phone) Call placed to pt as follow-up from initial nutrition assessment from 12/30/22. Patient denies any issues related to diet information previously provided. Dietary meal pattern/usual po intake as indicated below: Breakfast: cereal, banana, milk/scrambled eggs, toast/ oatmeal, hot tea Snacks: nothing Lunch: homemade soups w/protein source, crackers usually Snacks: nothing Dinner: "piece of meat", potatoes, rice, pasta, green beans, carrots, peas Snacks: blueberry waffles, hot tea Drinks: water, hot tea, Gatorade Patient continues to live alone but daughter and granddaughter continue to assist with care/shopping/prep/cooking of some meals for Patient Patient reports Sores (2) on her tongue remain since last call, but are slowly healing Patient now reports a few "canker sores inside my cheeks"/MD ordered "medicated mouth wash" --reinforced foods to avoid/consume (sent info previously) Patient reports she continues to consume bland, soft to chew foods, low acidic foods/drinks (suggested healthy options) Patient reports PO intake/appetite remain good since last call despite pain from sore tongue/cankersores (provided encouragement) Patient reports hydration continues to improve/consuming more fluid since last call (encouraged at least 2-3 bottles of water/daily--16.9 oz each--provided encouragement) No food insecurity reported this call Since last call, episodes of constipation occur "here and there" per Patient Continues to consume prune juice or apple juice for relief (reinforced foods/fluids to include in daily diet to help alleviate symptoms/sent info previously) Patient denies any issues related to changes in wt. Wt Readings from Last 3 Encounters: 12/30/22 42.5 kg (93 lb 11.1 oz) 11/01/22 42.5 kg (93 lb 11.1 oz) 09/26/22 42.5 kg (93 lb 12.8 oz) Previous Nutrition Goals: 1) Consume 3 meals/day of nutritious protein/calorie rich, low sodium foods--in progress (provided encouragement/reviewed foods to avoid/consume/suggested healthy food choices/info sent previously) 2) Consume 2-3 bottles of water daily (16.9 oz each)--in progress 3) Consume more fruits/vegetables in daily diet (1 at breakfast/lunch, and 1 vegetable at dinner)--in progress (provided suggestions for healthy options/seasonal fruits and vegetables/reviewed My Plate Method/sent info previously) Reinforced nutrition goals. Encouraged continued progress towards goals Follow up as scheduled. Encouraged pt to contact [facility] at [phone] for any non-emergent changes/concerns. Ashley Light MS, DECLANN, LDN Clinical Dietitian [facility] 01/24/2023 11:22 AM documented in this encounter Plan of Treatment Upcoming Encounters Date Type Specialty Care Team Description 02/01/2023 Telemedicine Dermatology Ramona Nichols MD [address] [place] [address] 02/15/2023 Home Visit [facility] Raquel Lopez RN [address] [facility] [place] [address] 02/27/[address] [facility] [place], [facility] Mobile Home Draw [address] [place] [address] Health Maintenance Due Date Last Done Comments [...] D LEVEL ONCE IN A LIFETIME-USE SMARTSET# [id number] Completed 02/15/2019, 08/16/2016, 02/11/2016, Additional history exists [...] as of this encounter Visit Diagnoses Diagnosis Mild protein-calorie malnutrition (HCC)- Primary Malnutrition of mild degree documented in this encounter Additional Health Concerns Infection Onset Date Last Indicated Resolved Time COVID-19 (confirmed) 08/10/2021 08/10/2021 documented as of this encounter Advance Directives Healthcare Agents on File Name Relationship Healthcare Agent Relationship Communication Suzy Prado Adult Child Health Care Joseph r of Inside Horticultural Specialty Grower [email or web address] Care Teams Paving Supervisor Relationship Specialty Start Date End Date Ivy Meier MD [address] [place] [address] [place] [address] PCP - General Family Medicine 01/17/17 documented as of this encounter
--- OUTSIDE RECORDS SUMMARY | 2023-05-12 02:52 | External Medical Summary | Summary of Care ---
Author Name Unknown Organization [facility] Address [address] [place] [address] Phone [phone] Care Team Providers Care Seafood Process Worker Name Role Phone Ivy Meier MD Primary Care Provide r Reason for Visit * Reason Onset Date Comments [facility]: Maintenance 02/20/2023 Encounter Details Date Type Department Care Team (Late st Contact Info) Description 02/20/2023 12:00 PM EDT Scheduled Telephone [facility], [facility] [address] [place] [facility] [place] [address] Charisse Reinoso, [address] [place] [address] Allergies Active Allergy Reactions Criticality Noted Date Comments Naproxen 01/06/2001 Rash localized to forearms and flushing Niacin 11/27/2000 Rash localized to forearms documented as of this encounter (statuses as of 02/20/2023) Medications Medication Sig Dispensed Refills Start Date [...] as of this encounter (statuses as of 02/20/2023) Active Problems Problem Noted Date Diagnosed Date [...] worse along with may be little cellulitis. [facility] nurse leather case finisher saw the patient yesterday and [...] for a possible early cellulitis. Her nurse leather case finisher will call in checkup with [...] as of this encounter (statuses as of 02/20/2023) Resolved Problems Problem Noted Date Diagnosed Date [...] CASE MANAGEMENT 12/19/200802/08 Overview: Evelyn Myers RN [phone] Edema 07/09/2007 02/04/2015 Postmenopausal bleeding 12/15/200501/22 Senile nuclear cataract 06/20/200507/24 POST SUBCAP SENILE CATAR 06/20/2005 Cataract extraction status 06/20/2005 0 06/12/2018 Keratoderma, acquired 10/01/20012015 NONTOX UNINODULAR GOITER Heartburn 02/04/2015 Other specified glaucoma 08/2022 PURE HYPERCHOLESTEROLEM 12/0 11/2008 Overview: Per Lipid Taxonomy. CARDIOVAS SYS SYMP NEC 02/04 documented as of this encounter (statuses as of 02/20/2023) Immunizations Name Administration Dates Next Due COVID-19 mRNA, LNP-s, No Pre serve, 2-Dose Series (NetDevices) 06/19/2020,05/29/2020 Pneumococcal Conjugate Vacc, 13 Valent (Prevnar) [...] Telephone Encounter - Charisse Reinoso CM - 02/20/2023 9:45 AM EDT [facility] Spoke with severo in social studies teacher. PT has review tomorrow with insurance. Will know if pt is getting cut or extended for more services. CW will schedulef/u call for to check on status Charisse Reinoso Research Program Manager ising at [email or web address] documented in this encounter Plan of Treatment Upcoming Encounters Date Type Department Care Team (Late st Contact Info) Description 02/23/2023 5:30 PM EDT Scheduled Telephone [facility], [facility] [address] [place] [address] Charisse Reinoso CM [address] [facility] [place] [address] 03/01/2023 8:50 AM EST Laboratory Lab Mobile Phlebotomy [facility] [address] [place] [address] [facility] [facility] Mobile Home Draw [address] [place] [address] Health Maintenance Due Date Last Done Comments [...] D LEVEL ONCE IN A LIFETIME-USE SMARTSET# [id number] Completed 02/15/2019, 08/16/2016, 02/11/2016, Additional history exists [...] Adult Child Health Care Joseph r of Nonprofit Financial Controller [email or web address] et Care Teams Seafood Process Worker Relationship Specialty Start Date End Date Ivy Meier MD [address] [place] [address] [place] [phone] PCP - General Family Medicine 01/17/17 documented as of this encounter
--- OUTSIDE RECORDS SUMMARY | 2023-05-12 02:52 | External Medical Summary | Summary of Care ---
Author Name Unknown Organization [facility] Address [address] [place] [address] Phone [phone] Care Team Providers Care Dietary Aid Name Role Phone Ivy Meier MD Primary Care Provide r Reason for Visit * Reason Onset Date Comments Home Health 01/27/2023 Encounter Details Date Type Department Care Team Description 01/27/2023 Telephone Family Medicine [address] [place] [phone] Ivy Meier MD [address] [place] [address] [place] [address] Home Health Allergies Active [...] worse along with may be little cellulitis. [facility] nurse child support case officer saw the patient yesterday and stated that [...] for a possible early cellulitis. Her nurse child support case officer will call in checkup with her later [...] MANAGEMENT 12/19/2008 0 Overview: Evelyn Myers, RN [phone] Edema 07/09/2007 02/04/2015 Postmenopausal bleeding 12/15/2005 02/05/20 [...] 1:46 PM EDT Natty - Lymphedema Therapist [facility] Calling with an update Seeing patient since [...] Today was Natty's last visit with patient Fci will continue to see patient 1 time a week for the next 2 weeks Please fax any new orders to [phone] No need to call her back documented in this encounter Plan of Treatment Upcoming Encounters Date Type Specialty Care Team Description 02/15/2023 Home Visit [facility] Raquel Lopez RN [address] [place] [address] 02/27/2023 Laboratory Laboratory Processing [facility], [facility] Mobile [facility] Draw [address] [facility] [address] Health Maintenance Due Date Last Done Comments [...] D LEVEL ONCE IN A LIFETIME-USE SMARTSET# [id number] Completed 02/15/2019, 08/16/2016, 02/11/2016, Additional history exists [...] Adult Child Health Care Joseph r of Pot Filler [email or web address] et Care Teams Dietary Aid Relationship Specialty Start Date End Date Ivy Meier MD [address] [place] [address] [place] [address] PCP - General Family Medicine 01/17/17 documented as of this encounter
--- OUTSIDE RECORDS SUMMARY | 2023-05-12 02:52 | External Medical Summary | Summary of Care ---
Author Name Unknown Organization [facility] Address [address] [place] [address] Phone [phone] Care Team Providers Care Chargeback Analyst Name Role Phone Ivy Meier MD Primary Care Provide r Reason for Visit * Reason Onset Date Comments Advice 01/20/2023 Waiver program f orm Encounter Details Date Type Department Care Team Description 01/20/2023 Telephone Family Medicine [address] [place] [address] Ivy Meier MD [address] [place] [address] [place] [address] Advice (Waiver program form) [...] worse along with may be little cellulitis. [facility] nurse outsole caser saw the patient yesterday and stated [...] for a possible early cellulitis. Her nurse outsole caser will call in checkup with her [...] MANAGEMENT 12/19/2008 0 Overview: Evelyn Myers RN [phone] Edema 07/09/2007 02/04/2015 Postmenopausal bleeding 12/15/2005 02/05/20 [...] for completion and refax to [facility] [employer]ist fax [phone]. * Telephone Encounter - Binta Blanco LPN - 01/20/2023 1:55 PM EDT This was sent to our [place] office. Wasn't sure of your church secretary pool. * Telephone Encounter - ELIZABETH Hernandez - 01/20/2023 1:37 PM EDT [place] [facility] calling to inform clinic that they faxed over the wrong page for the referral - they are in need of the 1st page with ICD Tin code (??), etc. - I advised her to use fax [phone] for forms documented in this encounter Plan of Treatment Upcoming Encounters Date Type Specialty Care Team Description 02/15/2023 Home Visit [facility] Raquel Lopez, RN [address] [place] [address] 02/27/2023 Laboratory Laboratory Processing [facility], [facility] Mobile Home Draw [address] [place] [address] Health Maintenance Due Date Last Done Comments [...] D LEVEL ONCE IN A LIFETIME-USE SMARTSET# [id number] Completed 02/15/2019, 08/16/2016, 02/11/2016, Additional history exists [...] Adult Child Health Care Joseph r of Adult Basic Education Teacher [email or web address] et Care Teams Chargeback Analyst Relationship Specialty Start Date End Date Ivy Meier MD [address] [place] [address] [place] [address] PCP - General Family Medicine 01/17/17 documented as of this encounter
--- OUTSIDE RECORDS SUMMARY | 2023-05-12 02:52 | External Medical Summary | Summary of Care ---
Author Name Unknown Organization [facility] Address [address] [place] [address] Phone [phone] Care Team Providers Care Marketing Strategist Name Role Phone Ivy Meier MD Primary Care Provide r Reason for Visit * Reason Onset Date Comments Home Health 01/18/2023 Encounter Details Date Type Department Care Team Description 01/18/2023 Telephone [address] [place] [address] Ivy Meier MD [address] [place] [address] [place] [address] Home Health (/) Allergies Active Allergy Reactions Severity Noted Date Comments Naproxen 01/06/2001 Rash localized to forearms and flushing Niacin 11/27/2000 Rash localized to forearms documented as of this encounter (statuses as of 01/18/2023) Medications Medication Sig Dispensed Refills Start Date [...] of water or juice.. 0 3 Active Levothyroxine Sodium 100 MCG Oral Tablet (Levoxyl)Indication s:Postsurgical hypothyroidism Take 1 Tablet by mouth in the morning. (at least 30 min prior to breakfast or other meds). 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 90 Capsule 1 3 Active linaCLOtide 72 MCG Oral Capsule (Linzess)Indication s:Slow transit constipation Take 1 Capsule by mouth daily before breakfast. 30 Capsule 5 3 01/19/20 23 Discontinued documented as of this encounter (statuses as of 01/18/2023) Active Problems Problem Noted Date Chronic myeloproliferative [...] worse along with may be little cellulitis. [facility] nurse keycase assembler saw the patient yesterday and stated [...] for a possible early cellulitis. 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 CARDIOVAS SYS SYMP NEC 5 documented as of this encounter (statuses as of 01/18/2023) Immunizations Name Administration Dates Next Due COVID-19 mRNA, LNP-s, No Pre serve, 2-Dose Series (Pfizer) 06/19/2020,05/29/2020 Pneumococcal Conjugate Vacc, 13 Valent (Prevnar) 02/04/2015 Pneumococcal Polysaccharide PPV23 (Pneumovax) 04/24/2003 Season Influenza, Quad, PF, Adjuvanted, 65+ Yrs, IM (FLUAD) 01/03/2020 Seasonal Influenza, PF, 6 mo ns & Above, IM , (Flulaval) 01/04/2019,01/25/2018,01/22/2017 Seasonal Influenza, Quadriva lent Hd (Fluzone [...] Telephone Encounter - Nelda Martin RN - 01/18/2023 1:41 PM EDT Faxed to [facility] . pt aware * Telephone Encounter - Ivy Meier MD - 01/18/2023 1:26 PM EDT Increase Linzess to 142 mcg daily. Sent to pharmacy. Would also recommend she resume the Miralax. She can continue prune juice as well. OK with dressing change. * Telephone Encounter - Che Bejarano LPN - 01/18/2023 12:59 PM EDT Provider to address: [facility], Calling from: Artem[facility] Report/Concerns of: Constipation Symptoms: constipation- last BM1 week ago , passing flatulence, and taking any medicationsLinzess Vitals: T 97.8 P 86 RR 20 BP 112/50 -denies lightheadedness or dizziness SP O2 95% room air Lung sounds clear Narrative: DIMPLE Diaz calling from [facility]. She is with the patient currently. When she got there the patient was in the BR. Patient was disimpacted herself. Stool is formed and soft, but she has difficulty pushing. Denies blood in stool, black, tarry, coffee ground like, abdominal pain or bloating. Drinking prune juice with butter every day and Linzess 72mcg every day. Patient is going usually a week without having a BM. Patient has been disimpacting herself 1x a week every 2 weeks for the 2 months. Abdomen soft, BS X 4 qaud. No change in appetite. Patient left lower leg wound --orders say cleanse with soap and water, hydrical blue and border dressing. When Babe changed today, the wound was open to air. No dressing for 2 days, dried up scab on outside, yellow in the middle, no drainage. It is healing well. Babe left the dressing off. If it begins to drain, patient will apply the dressing. HH nursing seeing patient 1x weekly. PT 2x weekly, OT 1x weekly. Please fax new orders to [facility] --[phone] Reason for Call: Home Health (/) Contact: Telephone Call Contact Type: Care Coordination Total Time including non face to face (minutes): 20 documented in this encounter Plan of Treatment Upcoming Encounters Date Type Specialty Care Team Description 01/24/2023 Nutrition Services [facility] Ashley Light RDN [address] [place] [address] 02/01/2023 Telemedicine Dermatology Ramona Nichols MD [address] [place] [address] 02/15/2023 [facility] Visit [facility] [address] [facility] [address] 02/27/2023 Laboratory Laboratory Processing [facility] Mobile Home Draw [address] [place] [address] Health Maintenance Due Date Last Done Comments [...] D LEVEL ONCE IN A LIFETIME-USE SMARTSET# [id number] Completed 02/15/2019, 08/16/2016, 02/11/2016, Additional history exists [...] Adult Child Health Care Joseph r of Vice President Of Talent Management [email or web address] Care Teams Marketing Strategist Relationship Specialty Start Date End Date Ivy Meier MD [address] [place] [address] [place] [address] PCP - General Family Medicine 01/17/17 documented as of this encounter
--- OUTSIDE RECORDS SUMMARY | 2023-05-12 02:52 | External Medical Summary | Summary of Care ---
Author Name Unknown Organization [facility] Address [address] [place] [address] Phone [phone] Care Team Providers Care Cardiology Consultant Name Role Phone Ivy Meier MD Primary Care Provide r Reason for Visit * Reason Onset Date Comments [facility]: Maintenance 02/06/2023 Encounter Details Date Type Department Care Team Description 02/06/2023 Telephone [facility], [facility] [address] [place] [address] [facility], Nurse [address] [address] [facility]: Maintenance Allergies Active Allergy Reactions Severity Noted Date Comments Naproxen 01/06/2001 Rash localized to forearms and flushing Niacin 11/27/2000 Rash localized to forearms documented as of this encounter (statuses as of 02/06/2023) Medications Medication Sig Dispensed Refills Start Date [...] as of this encounter (statuses as of 02/06/2023) Active Problems Problem Noted Date Chronic myeloproliferative [...] worse along with may be little cellulitis. [facility] nurse manager digital saw the patient yesterday and stated that [...] a possible early cellulitis. 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 CARDIOVAS SYS SYMP NEC 5 documented as of this encounter (statuses as of 02/06/2023) Immunizations Name Administration Dates Next Due COVID-19 [...] encounter Miscellaneous Notes * Telephone Encounter - Patricia Snow LPN - 02/06/2023 9:17 AM EDT Admitted to [facility] Added to hospital list to follow documented in this encounter Plan of Treatment Upcoming Encounters Date Type Specialty Care Team Description 02/15/2023 [facility] Visit [facility] [address] [facility] [address] 02/27/2023 Laboratory Laboratory Processing [facility] Mobile Home Draw [address] [place], [place] [id number] Health Maintenance Due Date Last Done Comments COVID-19 Vaccine (3 - Pfizer risk series) 07/17/2020 06/19/2020, 05/29/2020 Depression Screening 05/22/2021 05/22/2020 Influenza Vaccine (FLU shot) (#1) 2022 02/01/2021, 01/03/2020, 01/03/2020, Additional history exists TSH 10/29/2023 10/28/2022, 06/0 10/2022, 06/29/2022, Additional history exists DTaP,Tdap,and Td Vaccines (3 - Td or Tdap) 07/25/2031 07/24/2021, 08/20/2012 DXA Scan Discontinued 08/27/2014, 03/0 07/2012, 03/23/2010, Additional history exists Pneumococcal Vaccine: 65+ Years Completed 02/04/2015, 04/24/2003 *BISPHONATE OR OTHER ACCEPTABLE MEDICATION NEEDED FOR OSTEOPOROSIS (REFER TO SMARTSET #1146) Addressed 11/02/2017 (Not indicated) Overridden with the intention of not completing the topic VITAMIN D LEVEL ONCE IN A LIFETIME-USE SMARTSET# 63986 Completed 02/15/2019, 08/16/2016, 02/11/2016, Additional history exists [...] Adult Child Health Care Joseph r of Brush Polisher [email or web address] Care Teams Cardiology Consultant Relationship Specialty Start Date End Date Ivy Meier MD [address] [place] [address] [place] [phone] PCP - General Family Medicine 01/17/17 documented as of this encounter
--- OUTSIDE RECORDS SUMMARY | 2023-05-12 02:52 | External Medical Summary | Summary of Care ---
Author Name Unknown Organization [facility] Address [address] [place] [address] Phone [phone] Care Team Providers Care Photonics Engineering Technologist Name Role Phone Ivy Meier MD Primary Care Provide r Reason for Visit * Reason Onset Date Comments Advice 01/20/2023 Waiver program f orm Encounter Details Date Type Department Care Team Description 01/20/2023 Telephone Family Medicine [address] [place] [address] Ivy Meier MD [address] [place] [address] [place] [address] Advice (Waiver program form) Allergies Active Allergy Reactions Severity Noted Date Comments Naproxen 01/06/2001 Rash localized to forearms and flushing Niacin 11/27/2000 Rash localized to forearms documented as of this encounter (statuses as of 01/31/2023) Medications Medication Sig Dispensed Refills Start Date [...] as of this encounter (statuses as of 01/31/2023) Active Problems Problem Noted Date Chronic myeloproliferative [...] worse along with may be little cellulitis. [facility] nurse case loader operator saw the patient yesterday and stated [...] a possible early cellulitis. 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 CARDIOVAS SYS SYMP NEC 5 documented as of this encounter (statuses as of 01/31/2023) Immunizations Name Administration Dates Next Due COVID-19 [...] for completion and refax to [facility] Enrollment [facility] [employer]ger fax [phone]. * Telephone Encounter - Binta Blanco LPN - 01/20/2023 1:55 PM EDT This was sent to our [place] office. Wasn't sure of your area secretary pool. * Telephone Encounter - ELIZABETH Hernandez - 01/20/2023 1:37 PM EDT [place] [facility] calling to inform clinic that they faxed over the wrong page for the referral - they are in need of the 1st page with ICD Tin code (??), etc. - I advised her to use fax [phone] for forms documented in this encounter Plan of Treatment Upcoming Encounters Date Type Specialty Care Team Description 02/15/2023 Home Visit [facility] Raquel Lopez, RN [address] [place] [address] 02/27/2023 Laboratory Laboratory Processing [facility] Mobile Home Draw [address] [place] [address] Health Maintenance Due Date Last Done Comments [...] D LEVEL ONCE IN A LIFETIME-USE SMARTSET# [id number] Completed 02/15/2019, 08/16/2016, 02/11/2016, Additional history exists [...] Adult Child Health Care Joseph r of Morning Babysitter [email or web address] Care Teams Photonics Engineering Technologist Relationship Specialty Start Date End Date Ivy Meier MD [address] [place] [address] [place] [address] PCP - General Family Medicine 01/17/17 documented as of this encounter
--- OUTSIDE RECORDS SUMMARY | 2023-05-12 02:52 | External Medical Summary | Summary of Care ---
Author Name Unknown Organization [facility] Address [address] [place] [address] Phone [phone] Care Team Providers Care Surveillance Investigator Name Role Phone Ivy Meier MD Primary Care Provide r Reason for Visit * Reason Onset Date Comments Home Health 01/18/2023 Encounter Details Date Type Department Care Team Description 01/18/2023 Telephone Family [address] [place] [address] Ivy Meier MD [address] [place] [address] [place] [address] Home Health (/) Allergies [...] be little cellulitis. [facility] nurse egg caser saw the patient yesterday and stated [...] for a possible early cellulitis. Her nurse egg caser will call in checkup with her [...] - 01/18/2023 1:41 PM EDT Faxed to [facility] . pt aware * Telephone Encounter - Ivy Meier MD - 01/18/2023 1:26 PM EDT Increase Linzess to 142 mcg daily. Sent to pharmacy. Would also recommend she resume the Miralax. She can continue prune juice as well. OK with dressing change. * Telephone Encounter - Che Bejarano LPN - 01/18/2023 12:59 PM EDT Provider to address: [facility] Concerns [place], Calling from: [place] [facility] Report/Concerns of: Constipation Symptoms: constipation- last BM1 week ago , passing flatulence, and taking any medicationsLinzess Vitals: T 97.8 P 86 RR 20 BP 112/50 -denies lightheadedness or dizziness SP O2 95% room air Lung sounds clear Narrative: DIMPLE Diaz calling from [facility]. She is with the patient currently. When [...] 1x weekly. Please fax new orders to [facility] --[phone] Reason for Call: Home Health (/) Contact: Telephone Call Contact Type: Care Coordination Total Time including non face to face (minutes): 20 documented in this encounter Plan of Treatment Upcoming Encounters Date Type Specialty Care Team Description 01/24/2023 Nutrition Services [facility] Ashley Light RDN [address] [place] [address] 02/01/2023 Telemedicine Dermatology Ramona Nichols MD [address] [place] [address] 02/15/2023 [facility] [address] 02/27/2023 Laboratory Laboratory Processing [facility], [facility] Mobile Home Draw [address] [place] [address] Health Maintenance Due Date Last [...] D LEVEL ONCE IN A LIFETIME-USE SMARTSET# [id number] Completed 02/15/2019, 08/16/2016, 02/11/2016, Additional history exists [...] Adult Child Health Care Joseph r of Rfp Writer [email or web address] Care Teams Surveillance Investigator Relationship Specialty Start Date End Date Ivy Meier MD [address] [place] [address] [place] Dom[place]ng[place] [address] PCP - General Family Medicine 01/17/17 documented as of this encounter
--- OUTSIDE RECORDS SUMMARY | 2023-05-12 02:52 | External Medical Summary | Summary of Care ---
Author Name Unknown Organization [facility] Address [address] [place] [address] Phone [phone] Care Team Providers Care Campus Wellness Coordinator Name Role Phone Ivy Meier MD Primary Care Provide r Reason for Visit * Reason Onset Date Comments Advice 01/20/2023 Waiver program f orm Encounter Details Date Type Department Care Team Description 01/20/2023 Telephone Family Medicine [address] [place] [address] Ivy Meier MD [address] [place] [address] [place] Domínguez [address] Advice (Waiver program form) [...] worse along with may be little cellulitis. [facility] nurse case advocate saw the [...] MANAGEMENT 12/19/2008 0 Overview: Evelyn Myers RN [phone] Edema 07/09/2007 02/04/2015 Postmenopausal bleeding 12/15/2005 02/05/20 [...] Telephone Encounter - Hyun Correa LPN - 02/08/2023 8:57 AM EDT I called Suzy back- I let her know we faxed the form and it was completed and I'm not sure what else they'd be asking for. Suzy said she will call and see what else they need and will get back tous. * Telephone Encounter - ELIZABETH Haque - [...] for completion and refax to [facility] fax [phone]. * Telephone Encounter - Binta Blanco LPN - 01/20/2023 1:55 PM EDT This was sent to our [place] office. Wasn't sure of your pathology secretary/transcriptionist pool. * Telephone Encounter - ELIZABETH Hernandez - 01/20/2023 1:37 PM EDT [place] [facility] calling to inform clinic that they faxed over the wrong page for the referral - they are in need of the 1st page with ICD Tin code (??), etc. - I advised her to use fax [phone] for forms documented in this encounter Plan of Treatment Upcoming Encounters Date Type Specialty Care Team Description 02/15/2023 Home Visit [facility] Raquel Lopez RN 132 [facility] [place] [address] 02/27/2023 Laboratory Laboratory Processing [facility], [facility] Mobile Home Draw [address] [place], [place] [id number] Health Maintenance Due Date Last Done Comments COVID-19 Vaccine (3 - Pfizer risk series) 07/17/2020 06/19/2020, 05/29/2020 Depression Screening 05/22/2021 05/22/2020 Influenza Vaccine (FLU shot) (#1) 2022 02/01/2021, 01/03/2020, 01/03/2020, Additional history exists TSH 10/29/2023 10/28/2022, 060 10/2022, 06/29/2022, Additional history exists DTaP,Tdap,and Td [...] D LEVEL ONCE IN A LIFETIME-USE SMARTSET# [id number] Completed 02/15/2019, 08/16/2016, 02/11/2016, Additional history exists [...] Adult Child Health Care Joseph r of Navy Material Inspector [email or web address] Care Teams Campus Wellness Coordinator Relationship Specialty Start Date End Date Ivy Meier MD [address] [place] [address] [place] Domínguez [address] PCP - General Family Medicine 01/17/17 documented as of this encounter
--- OUTSIDE RECORDS SUMMARY | 2023-05-12 02:53 | External Medical Summary ---
Author Name Unknown Address Unknown Organization K01:[facility] - [address] [facility] [place] [address] Laboratory Report Ordering Provider Test Date Status MAOFU,FU 01/04/2023 09:13:00 Final Observation Date Value Abnormality Reference (Units ) Status SYNC LEUKOCYTES IN BLOOD BY AUTOMATED COUNT 01/04/2023 09:13:00 19.15 Above high normal 4.00-10.80 (K/uL) Final Neutrophils/100 leukocytes in Blood by Manual count 01/04/2023 09:13:00 72.4 40.0-75.0 (%) Final Lymphocytes/100 leukocytes in Blood by Manual count 01/04/2023 09:13:00 9.2 Below low normal 18.0-42.0 (%) Final Monocytes/100 leukocytes in Blood by Manual count 01/04/2023 09:13:00 9.2 1.0-11.0 (%) Final Eosinophils/100 leukocytes in Blood by Manual count 01/04/2023 09:13:00 4.1 0.0-6.0 (%) Final Basophils/100 leukocytes in Blood by Manual count 01/04/2023 09:13:00 2.0 0.0-2.0 (%) Final Metamyelocytes/100 leukocytes in Blood by Manual count 01/04/2023 09:13:00 2.0 Above high normal <=0.0 (%) Final Myelocytes/100 leukocytes in Blood by Manual count 01/04/2023 09:13:00 1.0 Above high normal <=0.0 (%) Final Neutrophils [#/volume] in Blood by Manual count 01/04/2023 09:13:00 13.87 Above high normal 1.80-7.70 (K/uL) Final Lymphocytes [#/volume] in Blood by Manual count 01/04/2023 09:13:00 1.76 1.00-4.80 (K/uL) Final Monocytes [#/volume] in Blood by Manual count 01/04/2023 09:13:00 1.76 Above high normal 0.00-1.10 (K/uL) Final Eosinophils [#/volume] in Blood by Manual count 01/04/2023 09:13:00 0.78 Above high normal 0.00-0.70 (K/uL) Final Basophils [#/volume] in Blood by Manual count 01/04/2023 09:13:00 0.39 Above high normal 0.00-0.20 (K/uL) Final Metamyelocytes [#/volume] in Blood by Manual count 01/04/2023 09:13:00 0.39 Above high normal <=0.00 (K/uL) Final Myelocytes [#/volume] in Blood by Manual count 01/04/2023 09:13:00 0.20 Above high normal <=0.00 (K/uL) Final Schistocytes 01/04/2023 09:13:00 Moderate Abnormal None Seen Final Dacrocytes [Presence] in Blood by Light microscopy 01/04/2023 09:13:00 Moderate Abnormal None Seen Final Toxic granules [Presence] in Blood by Light microscopy 01/04/2023 09:13:00 Moderate Abnormal None Seen Final Neutrophils.vacuolated [Presence] in Blood by Light microscopy 01/04/2023 09:13:00 Present Abnormal None Seen Final Performing Location LABORATORY C - [address] [facility] [address]
--- OUTSIDE RECORDS SUMMARY | 2023-05-12 02:53 | External Medical Summary ---
Author Name Unknown Address Unknown Organization K01:[facility] - [address] [place] [address] Laboratory Report Ordering Provider Test Date Status MAORUBEN,FU 01/04/2023 09:13:00 Final Observation Date Value Abnormality Reference (Units ) Status LDH 01/04/2023 09:13:00 172 <=250 (U/L ) Final Performing Location [facility] - [address] [place] [address]
--- OUTSIDE RECORDS SUMMARY | 2023-05-12 02:53 | External Medical Summary | Summary of Care ---
Author Name Unknown Organization [facility] Address [address] [place] [address] Phone [phone] Care Team Providers Care Milling Machinist Name Role Phone Ivy Meier MD Primary Care Provide r Reason for Visit * Reason Onset Date Comments Home Health 01/06/2023 Encounter Details Date Type Department Care Team Description 01/06/2023 Telephone Family Medicine [address] [place] [address] Ivy Meier MD [address] [place] [address] [place] Domínguez [phone] Home Health Allergies Active Allergy Reactions Severity Noted Date Comments Naproxen 01/06/2001 Rash localized to forearms and flushing Niacin 11/27/2000 Rash localized to forearms documented as of this encounter (statuses as of 01/11/2023) Medications Medication Sig Dispensed Refills Start Date [...] of water or juice.. 0 09/26/2022 Active linaCLOtide 72 MCG Oral Capsule (Linzess)Indications: Slow transit constipation Take 1 Capsule by mouth daily before breakfast. 30 Capsule 5 09/26/2022 Active Levothyroxine Sodium 100 MCG Oral [...] THE DAY 30 Capsule 5 12/09/2022 Active documented as of this encounter (statuses as of 01/11/2023) Active Problems Problem Noted Date Chronic myeloproliferative [...] worse along with may be little cellulitis. [facility] nurse disability case manager saw the patient yesterday and [...] for a possible early cellulitis. 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 CARDIOVAS SYS SYMP NEC 5 documented as of this encounter (statuses as of 01/11/2023) Immunizations Name Administration Dates Next Due COVID-19 [...] encounter Miscellaneous Notes * Telephone Encounter - Che Pollack CMA - 01/11/2023 11:53 AM EDT Provider to address: [place] Reason for Call: Home Health Contact: In Clinic Contact Type: Care Coordination Outcome: I submitted the orders to [facility] online Total Time including non face to face (minutes): 20 * Telephone Encounter - Ivy Meier MD - 01/06/2023 12:58 PM EDT Signed * Telephone Encounter - Maggie Tran LPN - 01/06/2023 10:07 AM EDT Provider to address: JENNI Luz and Lymphedema therapist is calling. Is requesting a DME [facility] bed rails. Pt is agreeable with this to assist with the edema in the pt's bilateral legs, R >L. Asks that the order is faxed to [facility], if agreeable. DME pended. Please advise. Reason for Call: Home Health Contact: Telephone Call Contact Type: Care Coordination Total Time including non face to face (minutes): 5 documented in this encounter Plan of Treatment Upcoming Encounters Date Type Specialty Care Team Description 2023 Home Visit [facility] Raquel Lopez, RN [address] [place] [address] 01/24/2023 Nutrition Services [facility] Ashley Light, DECLANN [address] [facility] [place] [address] 02/01/2023 Telemedicine Dermatology Ramona Nichols MD [address] [place] [address] 02/27/2023 Laboratory Laboratory Processing [facility], [facility] Mobile Home Draw [address] [place] [address] Health Maintenance Due Date Last [...] D LEVEL ONCE IN A LIFETIME-USE SMARTSET# [id number] Completed 02/15/2019, 08/16/2016, 02/11/2016, Additional history exists [...] lymphatic and hematopoietic tissues Lymphedema Other lymphedema documented in this encounter Additional Health Concerns Infection Onset Date Last Indicated Resolved Time COVID-19 (confirmed) 08/10/2021 08/10/2021 documented as of this encounter Advance Directives Healthcare Agents on File Name Relationship Healthcare Agent Relationship Communication Suzy Prado Adult Child Health Care Joseph r of Air Technician [email or web address] Care Teams Milling Machinist Relationship Specialty Start Date End Date Ivy Meier MD [address] [place] [address] [place] [address] PCP - General Family Medicine 01/17/17 documented as of this encounter
--- OUTSIDE RECORDS SUMMARY | 2023-05-12 02:53 | External Medical Summary | Summary of Care ---
Author Name Unknown Organization [facility] Address [address] [place] [facility] [place] [address] Phone [phone] Care Team Providers Care Solar Consultant Name Role Phone Ivy Meier MD Primary Care Provide r Reason for Visit * Reason Comments [facility]: Maintenance Encounter Details Date Type Department Care Team Description 01/04/2023 Home Visit [facility], [facility] [address] [place] [address] Raquel Lopez, DIMPLE [address] [place] [address] Allergies Active Allergy Reactions Severity Noted Date Comments Naproxen 01/06/2001 Rash localized to forearms and flushing Niacin 11/27/2000 Rash localized to forearms documented as of this encounter (statuses as of 01/04/2023) Medications Medication Sig Dispensed Refills Start Date [...] as of this encounter (statuses as of 01/04/2023) Active Problems Problem Noted Date Chronic myeloproliferative [...] worse along with may be little cellulitis. 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 CARDIOVAS SYS SYMP NEC 5 documented as of this encounter (statuses as of 01/04/2023) Immunizations Name Administration Dates Next Due COVID-19 [...] Sign Reading Time Taken Comments Blood Pressure 118/52 01/04/2023 1:24 PM EDT Pulse 72 01/04/2023 1:24 PM EDT Temperature 36.5 C (97.7 F) 01/04/2023 1:24 PM ED T Respiratory Rate 18 01/04/2023 1:24 PM EDT Oxygen Saturation 93% 01/04/2023 1:24 PM EDT Inhaled Oxygen Concentration - - Weight - - Height - - Body Mass Index - - documented in this encounter Progress Notes * Raquel Lopez RN - 01/04/2023 1:06 PM EDT [facility] Account Executive Visit Date: 01/04/2023 Time: 1:06 PM Name: Milargo Mckoy : 1935 Current Concerns: Patient seen for HAM#1- recent utilization at [facility] 12/25/22 r/t UTI, Lower leg extremity cellulitis. Discharged home 12/28 with Cefdinir and Doxycycline. Reports prior to hospital LLE seeping clear fluid. Moved to first floor appointment. Tubigrips intact BLE +3 pitting RLE, +2 pitting edema LLE Elevating LE on recliner Reports feeling much better VS wnl Lungs clear bilaterally Sob with exertion Voiding without difficulty Bowels wnl- drinking apple juice and switching out with applesauce to stay regular Appetite good Taking fluids well. Physical Exam: BP 118/52 (BP Site: Left Arm, BP Position: Sitting, BP Cuff Size: Regular) | Pulse 72 | Temp 36.5 C (97.7 F) (Tympanic) | Resp 18 | SpO2 93% Pain 0 Physical Exam Constitutional: Appearance: Normal appearance. Cardiovascular: Rate and Rhythm: Normal rate. Rhythm irregular. Pulses: Normal pulses. Heart sounds: Normal heart sounds. Pulmonary: Effort: Pulmonary effort is normal. Breath sounds: Normal breath sounds. Abdominal: General: Bowel sounds are normal. Palpations: Abdomen is soft. Musculoskeletal: General: Normal range of motion. Right lower leg: Edema present. Left lower leg: Edema present. Skin: General: Skin is warm and dry. Capillary Refill: Capillary refill takes 2 to 3 seconds. Neurological: General: No focal deficit present. Mental Status: She is alert and oriented to person, place, and time. Psychiatric: Mood and Affect: Mood normal. Behavior: Behavior normal. Problems/Symptoms: Review of Systems Constitutional: Negative. HENT: Negative. Eyes: Negative. Respiratory: Positive for shortness of breath. Cardiovascular: Positive for leg swelling. Gastrointestinal: Negative. Endocrine: Negative. Genitourinary: Negative. Musculoskeletal: Positive for gait problem. Skin: Negative. Allergic/Immunologic: Negative. Hematological: Negative. Psychiatric/Behavioral: Negative. Medication Reconciliation: (See medication list) Does patient take medications as ordered: Yes- med bottle review Patient Well Being: PHQ2/9: No questionnaires available. Within normal limits [facility] Completed this Visit: Yes. [facility]: Reason Completed: Status post ED visit/hospital admission [facility]-10 ([facility]) Fall Risk Assessment Tool Diagnosis (3 or more co-existing): Yes (01/04/231299) Prior history of falls within 3 months: No (01/04/231299) Incontinence: Yes (01/04/231299) Visual impairment: Yes (01/04/231299) Impaired functional mobility: Yes (01/04/231299) Environmental hazards: No (01/04/231299) Poly Pharmacy (4 or more prescriptions - any type): Yes (01/04/231299) Pain affecting level of function: No (01/04/231299) Cognitive impairment: No (01/04/231299) [facility] Interventions: Fall education provided, reviewed/provided Fall brochure Advanced Care Planning: POLST. Patient's Goals of Care: Not going to the hospital Continue to do my own shopping Reinforcement/Education: Educated on home safety: Create a [...] that will be right for you. Reinforced medication regimen. Timing., Dosing., and Purspose. Treatment/Plan: Tubigrips BLE Elevate LE- edema Low na diet [facility] HH- PT/OT Continue medications as prescribed Keep all upcoming MD appointments Fall precautions- walker/w/c for mobility Fluids encouraged RN CM follow up in 2 weeks. Home Interventions Provided: Reinforced current Plan of Care, including self-management and medication regimen Patient's 'Red Flags': Increase SOB/lightheadedness/dizziness Mouth sores/ulcers Temperature not relieved by APAP Patient Needs to Remember: Call [facility] with any medical concerns/ red flags Referrals Needed: N/a Follow Up: Is there cellular connectivity/connectivity in the home? Yes Does the patient have internet in the home? No Patient encouraged to call the intake phone number for all urgent but not emergent issues. Is the patient new to [facility] within the last 30 days? No, Assess appropriateness for upcoming telehealth visits. Cancel telehealth visits & schedule home visit with care coding team lead(s) as indicated. Provider is in agreement with Plan of Care: Yes Scheduled to follow up with patient in 2 weeks. Raquel Morgan RN 01/04/2023 1:06 PM documented in this encounter Plan of Treatment Upcoming Encounters Date Type Specialty Care Team Description 2023 Home Visit [facility] Raquel Lopez, DIMPLE [address] [place] [address] 01/24/2023 Nutrition Services [facility] Ashley Light RDN [address] [facility] [place] [address] 02/01/2023 Telemedicine Dermatology Ramona Nichols MD [address] [place] [address] 02/27/2023 Laboratory Laboratory Processing [facility] Mobile Home Draw [address] [place] [address] Health Maintenance Due Date Last [...] D LEVEL ONCE IN A LIFETIME-USE SMARTSET# [id number] Completed 02/15/2019, 08/16/2016, 02/11/2016, Additional history exists [...] Adult Child Health Care Joseph r of Political Researcher [email or web address] Care Teams Solar Consultant Relationship Specialty Start Date End Date Ivy Meier MD [address] [place] [address] [place] [address] PCP - General Family Medicine 01/17/17 documented as of this encounter"
--- OUTSIDE RECORDS SUMMARY | 2023-05-12 02:53 | External Medical Summary | Summary of Care ---
Author Name Unknown Organization [facility] Address [address] [facility] [place] [address] Phone [phone] Care Team Providers Care Tube Teller Name Role Phone Ivy Meier MD Primary Care Provide r Reason for Visit * Reason Onset Date Comments [facility]: Maintenance 12/29/2022 Encounter Details Date Type Department Care Team Description 12/29/2022 Telephone [facility], [facility] [address] [facility] [place] [address] [facility], Nurse [facility] [address] [place] [address] [facility]: Maintenance Allergies Active Allergy Reactions Severity Noted Date Comments Naproxen 01/06/2001 Rash localized to forearms and flushing Niacin 11/27/2000 Rash localized to forearms documented as of this encounter (statuses as of 12/29/2022) Medications Medication Sig Dispensed Refills Start Date [...] Polyethylene Glycol 3350 17 GM/SCOOP Oral Powder (MiraLax) Take 17 g by mouth in the [...] as of this encounter (statuses as of 12/29/2022) Active Problems Problem Noted Date Chronic myeloproliferative [...] along with may be little cellulitis. [facility] nurse counter caser saw the patient yesterday and stated [...] for a possible early cellulitis. 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 CARDIOVAS SYS SYMP NEC 5 documented as of this encounter (statuses as of 12/29/2022) Immunizations Name Administration Dates Next Due COVID-19 [...] Telephone Encounter - Tahmina Ye RN - 12/29/2022 1:04 PM EDT Patient calling because she just missed a call. She does not know who it was from. Chart reviewed there are no calls listed from today. I told her that hopefully they weill call back. Tahmina Ye. RN [facility] logistics operations director [phone] documented in this encounter Plan of Treatment Upcoming Encounters Date Type Specialty Care Team Description 12/30/2022 Laboratory Laboratory Processing [facility] Home Draw [address] [place] [address] 12/30/2022 Nutrition Services [facility] Ashley Light RDN [address] [facility] [place] [address] 01/03/2023 Office Visit Family Medicine Ivy Meier MD [address] [place] [address] [place] [address] 01/04/2023 Home Visit [facility] Raquel Lopez RN 132 [facility] [place] [address] 2023 Home Visit [facility] Raquel Lopez RN [address] [place] [address] 02/01/2023 Telemedicine Dermatology Ramona Nichols MD [address] [place] [address] 02/27/2023 Laboratory Laboratory Processing [facility] Draw [address] [place] [address] Health Maintenance Due Date Last Done Comments COVID-19 Vaccine (3 - Pfizer risk series) 07/17/2020 06/19/2020, 05/29/2020 Depression Screening, Annual for Pts 12 and Over 05/22/2021 05/22/2020 Influenza Vaccine (FLU shot) (#1) [...] D LEVEL ONCE IN A LIFETIME-USE SMARTSET# [id number] Completed 02/15/2019, 08/16/2016, 02/11/2016, Additional history exists [...] Adult Child Health Care Joseph r of Instruction Dean [email or web address] et Care Teams Tube Teller Relationship Specialty Start Date End Date Ivy Meier MD [address] [place] [address] [place] [address] PCP - General Family Medicine 01/17/17 documented as of this encounter
--- OUTSIDE RECORDS SUMMARY | 2023-05-12 02:53 | External Medical Summary ---
Author Name Unknown Address Unknown Organization K01:[facility] [place] - [facility] [address] [facility] [address] Laboratory Report Ordering Provider Test Date Status MAOFU,FU 01/04/2023 09:13:00 Final Observation Date Value Abnormality Reference (Units ) Status WBC, Total 01/04/2023 09:13:00 19.15 Above high normal 4.00-10.80 (K/uL) Final RBC 01/04/2023 09:13:00 2.31 3.85-5.15 (M/uL) Final Hemoglobin 01/04/2023 09:13:00 9.0 Below low normal 12.0-15.3 (g/dL) Final HCT 01/04/2023 09:13:00 28.4 Below low normal 36.0-45.2 (%) Final MCV 01/04/2023 09:13:00 122.9 81.5-97.5 (fL) Final MCH 01/04/2023 09:13:00 39.0 27.0-34.0 (pg) Final MCHC 01/04/2023 09:13:00 31.7 32.0-36.0 (g/dL) Final RDW 01/04/2023 09:13:00 27.8 11.5-15.5 (%) Final Platelets 01/04/2023 09:13:00 93 Below low normal 140-400 (K/uL) Final MPV 01/04/2023 09:13:00 11.8 6.6-11.1 (fL) Final Nucleated erythrocytes/100 leukocytes [Ratio] in Blood by Automated count 01/04/2023 09:13:00 1 Above high normal <=0 (/100 WBCs) Final Performing Location [facility] - [facility] [address] [facility] [address]
--- OUTSIDE RECORDS SUMMARY | 2023-05-12 02:53 | External Medical Summary | Summary of Care ---
Author Name Unknown Organization [facility] Address [address] [place] [address] Phone [phone] Care Team Providers Care Topographical Surveyor Name Role Phone Ivy Meier MD Primary Care Provide r Reason for Visit * Reason Onset Date Comments Appointment 12/29/2022 Encounter Details Date Type Department Care Team Description 12/29/2022 Telephone [facility], [facility] [address] [facility] [place] [address] Services, Scheduling [address] [place] [address] Appointment (//) Allergies Active Allergy Reactions Severity Noted Date [...] along with may be little cellulitis. [facility] nurse returned case inspector saw the patient yesterday and stated that [...] for a possible early cellulitis. Her nurse returned case inspector will call in checkup with her later [...] MANAGEMENT 12/19/2008 0 Overview: Evelyn Myers RN [phone] Edema 07/09/2007 02/04/2015 Postmenopausal bleeding 12/15/2005 02/05/20 15 Senile nuclear cataract 06/20/2005 08/13/19 16 POST SUBCAP SENILE CATAR 06/20/2005 04/21/2 016 Cataract extraction status 06/20/200506/12 Keratoderma, acquired [...] Miscellaneous Notes * Telephone Encounter - ELIZABETH Chiu - 12/29/2022 1:10 PM EDT Per Request via TT Hyun Saleem she advised pt would need HAM visit... Called lmom to confirm if01/04 at 1:30pm is a good date and time. documented in this encounter Plan of Treatment Upcoming Encounters Date Type Specialty Care Team Description 12/30/2022 Laboratory Laboratory Processing [facility] Home Draw [address] [place] [address] 12/30/2022 Nutrition Services [facility] Ashley Light RDN [address] [facility] [place] [address] 01/03/2023 Office Visit Family Medicine Ivy Meier MD [address] [place] [address] [place] [id number] 01/04/2023 Home Visit [facility] Raquel Lopez RN [address] [place] [address] 2023 Home Visit [facility] Raquel Lopez RN [address] [place] [address] 02/01/2023 Telemedicine Dermatology Ramona Nichols MD [address] [place] [address] 02/27/2023 Laboratory Laboratory Processing [facility] Home Draw [address] [place] [address] Health Maintenance Due Date Last Done Comments [...] D LEVEL ONCE IN A LIFETIME-USE SMARTSET# [id number] Completed 02/15/2019, 08/16/2016, 02/11/2016, Additional history exists [...] Adult Child Health Care Joseph r of Deli Cutter Slicer [email or web address] et Care Teams Topographical Surveyor Relationship Specialty Start Date End Date Ivy Meier MD [address] [place] [address] [place] [address] PCP - General Family Medicine 01/17/17 documented as of this encounter
--- OUTSIDE RECORDS SUMMARY | 2023-05-12 02:53 | External Medical Summary | Summary of Care ---
Author Name Unknown Organization [facility] Address [address] [place] [facility] [place] [address] Phone [phone] Care Team Providers Care Gate Watchman Name Role Phone Ivy Meier MD Primary Care Provide r Reason for Visit * Reason Comments [facility]: Maintenance Encounter Details Date Type Department Care Team Description 2023 Home Visit [facility], [facility] [address] [place] [address] Raquel Lopez, DIMPLE [address] [place] [address] Allergies Active Allergy Reactions Severity Noted Date Comments Naproxen 01/06/2001 Rash localized to forearms and flushing Niacin 11/27/2000 Rash localized to forearms documented as of this encounter (statuses as of 2023) Medications Medication Sig Dispensed Refills Start Date [...] as of this encounter (statuses as of 2023) Active Problems Problem Noted Date Chronic myeloproliferative [...] with may be little cellulitis. [facility] nurse watch case polisher saw the patient yesterday and stated that [...] for a possible early cellulitis. 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 CARDIOVAS SYS SYMP NEC 5 documented as of this encounter (statuses as of 2023) Immunizations Name Administration Dates Next Due COVID-19 [...] Reading Time Taken Comments Blood Pressure 118/52 2023 1:41 PM EDT Pulse 74 2023 1:41 PM EDT Temperature 37.1 C (98.8 F) 2023 1:41 PM ED T Respiratory Rate 18 2023 1:41 PM EDT Oxygen Saturation 99% 2023 1:41 PM EDT Inhaled Oxygen Concentration - - Weight - - Height - - Body Mass Index - - documented in this encounter Progress Notes * Raquel Lopez RN - 2023 1:27 PM EDT [facility] Plaster Foreman Visit Date: 2023 Time: 1:27 PM Name: Milagro Mckoy : 1935 Current Concerns: Patient seen for follow up- Mucous membrane pemphigoid, lymphedema, history of ovarian cancer Reports having two therapists here today- states she is tired out. Therapy applied compression pumps alternating legs. VS wnl Lungs clear bilaterally Denies sob at present but has with exertion +2 pitting edema RLE, +1 pitting edema LLE Voiding without difficulty Bowels wnl- per report Appetite good Taking fluids well Problems/Symptoms: Review of Systems Constitutional: Positive for fatigue. HENT: Negative. Eyes: Negative. Respiratory: Positive for shortness of breath. Cardiovascular: Positive for leg swelling. Gastrointestinal: Negative. Endocrine: Negative. Genitourinary: Negative. Musculoskeletal: Positive for gait problem. Skin: Negative. Allergic/Immunologic: Negative. Hematological: Negative. Psychiatric/Behavioral: Negative. Physical Exam: BP 118/52 (BP Site: Right Arm, BP Position: Sitting, BP Cuff Size: Regular) | Pulse 74 | Temp 37.1 C (98.8 F) (Tympanic) | Resp 18 | SpO2 99% Pain 0 Physical Exam Constitutional: Appearance: Normal [...] General: Skin is warm and dry. Neurological: General: No focal deficit present. Mental Status: She is alert and oriented to person, place, and time. Psychiatric: Mood and Affect: Mood normal. Behavior: Behavior normal. [facility]-10 Completed this Visit: No. No falls since last visit Treatment/Plan: Compression pumps bilaterally Elevate ble- edema Low na diet Continue medications as prescribed Keep all upcoming MD appointments Fall precautions- walker with ambulation Home Interventions Provided: Reinforced current Plan of Care, including self-management and medication regimen Patient Needs to Remember: Call [facility] with any medical concerns/ red flags Referrals Needed: N/a Follow Up: Is there cellular connectivity/connectivity in the home? Yes Does the patient have internet in the home? No Patient encouraged to call the intake phone number for all urgent but not emergent issues. Scheduled to follow up with patient in 4 weeks. Raquel Morgan RN 2023 1:27 PM documented in this encounter Plan of Treatment Upcoming Encounters Date Type Specialty Care Team Description 01/24/2023 Nutrition Services [facility] Ashley Light RDN [address] [facility] [place] [address] 02/01/2023 Telemedicine Dermatology Ramona Nichols MD [address] [place], [place] [address] [address] 02/15/2023 Home Visit [facility] Raquel Lopez, RN [address] [place] [address] 02/27/2023 Laboratory Laboratory Processing [facility] Draw [address] [facility] [address] Health Maintenance Due Date Last Done Comments [...] D LEVEL ONCE IN A LIFETIME-USE SMARTSET# [id number] Completed 02/15/2019, 08/16/2016, 02/11/2016, Additional history exists [...] Adult Child Health Care Joseph r of Assistant Manager Trainee [email or web address] et Care Teams Gate Watchman Relationship Specialty Start Date End Date Ivy Meier MD [address] [place] [address] [place] [address] PCP - General Family Medicine 01/17/17 documented as of this encounter"
--- OUTSIDE RECORDS SUMMARY | 2023-05-12 02:53 | External Medical Summary | Summary of Care ---
Author Name Unknown Organization [facility] Address [address] [facility] [place] [place] [address] Phone [phone] Care Team Providers Care Ophthalmic Surgical Assistant Name Role Phone Ivy Meier MD Primary Care Provide r Reason for Visit * Reason Onset Date Comments Follow Up 12/24/2022 Encounter Details Date Type Department Care Team Description 12/24/2022 Scheduled Telephone [facility] [place], [facility] [address] [facility] [place] [address] [facility], Nurse [facility] [address] [facility] [place] [address] Allergies Active Allergy Reactions Severity Noted Date Comments Naproxen 01/06/2001 Rash localized to forearms and flushing Niacin 11/27/2000 Rash localized to forearms documented as of this encounter (statuses as of 12/24/2022) Medications Medication Sig Dispensed Refills Start Date [...] as of this encounter (statuses as of 12/24/2022) Active Problems Problem Noted Date Chronic myeloproliferative [...] worse along with may be little cellulitis. 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 CARDIOVAS SYS SYMP NEC 5 documented as of this encounter (statuses as of 12/24/2022) Immunizations Name Administration Dates Next Due COVID-19 [...] Telephone Encounter - Raquel Lopez RN - 12/24/2022 9:24 AM EDT Phone call to patient for follow up Left lower leg edema/weeping fluid. Left message providing call back number. documented in this encounter Plan of Treatment Upcoming Encounters Date Type Specialty Care Team Description 12/28/2022 Laboratory Laboratory Processing [facility] Draw [address] [place] [address] 12/30/2022 Nutrition Services [facility] Ashley Light RDN [address] [place] [address] 2023 Home Visit [facility] Raquel Lopez, RN [address] [place] [address] 02/01/2023 Telemedicine Dermatology Ramona Nichols MD [address] [place] [address] 02/27/2023 Laboratory Laboratory Processing [facility] Draw [address] [place] [address] Health Maintenance Due Date Last Done Comments [...] D LEVEL ONCE IN A LIFETIME-USE SMARTSET# [id number] Completed 02/15/2019, 08/16/2016, 02/11/2016, Additional history exists [...] Adult Child Health Care Joseph r of Manager Of Patient [email or web address] et Care Teams Ophthalmic Surgical Assistant Relationship Specialty Start Date End Date Renea, Doriann Patel, MD [address] [place] [address] [place] [address] PCP - General Family Medicine 01/17/17 documented as of this encounter
--- OUTSIDE RECORDS SUMMARY | 2023-05-12 02:53 | External Medical Summary | Summary of Care ---
Author Name Unknown Organization [facility] Address [address] [place] [address] Phone [phone] Care Team Providers Care Guest Service Team Leader Name Role Phone Ivy Meier MD Primary Care Provide r Reason for Visit * Reason Comments Medical Nutrition Therapy Encounter Details Date Type Department Care Team Description 12/30/2022 Nutrition Services [facility] [address] [facility] [place] [address] Ashley Light, RDN [address] [facility] [address] Mild protein-calorie malnutrition (HCC)* Allergies Active Allergy Reactions Severity Noted Date Comments Naproxen 01/06/2001 Rash localized to forearms and flushing Niacin 11/27/2000 Rash localized to forearms documented as of this encounter (statuses as of 12/30/2022) Medications Medication Sig Dispensed Refills Start Date [...] as of this encounter (statuses as of 12/30/2022) Active Problems Problem Noted Date Chronic myeloproliferative [...] worse along with may be little cellulitis. [facility] nurse manager case saw the patient yesterday and stated that [...] possible early cellulitis. 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 CARDIOVAS SYS SYMP NEC 5 documented as of this encounter (statuses as of 12/30/2022) Immunizations Name Administration Dates Next Due COVID-19 [...] Sign Reading Time Taken Comments Blood Pressure - - Pulse - - Temperature - - Respiratory Rate - - Oxygen Saturation - - Inhaled Oxygen Concentration - - Weight 42.5 kg (93 lb 11.1 oz) 12/30/2022 9:01 A M EDT Height 154.9 cm (5' 1") 12/30/2022 9:01 AM EDT Body Mass Index 17.7 12/30/2022 9:01 AM EDT documented in this encounter Progress Notes * Ashley Light, DECLANN - 12/30/2022 8:46 AM EDT NUTRITION FOLLOW-UP NOTE - OUTPATIENT Faustino Name: Milagro Mckoy [facility]: 12/30/2022 Time: 8:46 AM Patient was identified by name and date. After connecting to the patient via telephone, the patient was identified by name and date of . Patient was then informed that this was a telephone call only visit. The patient agreed to participate. Visit Disposition: Routine follow-up Total call duration was 10 minutes. 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 Hypercalcemia E83.52 Hyperparathyroidism (HCC) [...] membrane pemphigoid L12.1 Gastroesophageal reflux disease K21.9 Support System: Child, Self Barriers to Learning: None Special Education Needs: None Physical Activity: Sedentary Food/Nutrition-Related History Dietary meal pattern/usual po intake as indicated below: Breakfast: cereal, banana, milk/scrambled eggs, toast/ oatmeal, hot tea Snacks: nothing Lunch: homemade soups w/protein source, crackers usually Snacks: nothing Dinner: "piece of meat", potatoes, rice, pasta, green beans, carrots, peas Snacks: blueberry waffles, hot tea Drinks: water, hot tea, Gatorade Diet Recall/Food Logs Indicate: AREAS FOR IMPROVEMENT: Inadequate fruit and vegetable intake Inadequate calorie intake Inadequate protein intake POSITIVE: Adequate fluid intake Food and Nutrient Intake and other pertinent information: Patient continues to live alone but daughter and granddaughter will assist with care/shopping/prep/cooking of some meals for Patient Sores (2) on her tongue remain since last call, but are healing (only had 1 sore on tongue previously) MD ordered "medicated mouth wash" --reinforced foods to avoid/consume (sent info previously) Continues to consume bland, soft to chew foods, low acidic foods/drinks PO intake/appetite remain fairly well since last call despite pain from sore tongue (provided encouragement) Continues consuming more fluid since last call (encouraged 2-3 bottles of water/daily--16.9 oz each--provided encouragement) No food insecurity reported this call Occasional episodes of constipation per Patient Will consume prune juice or apple juice for relief (reinforced foods/fluids to include in daily diet to help alleviate symptoms/sent info previously) Medications Changes/Updates: None reported Nutrition-Focused Physical Findings Full nutrition focused physical exam not conducted (telephone nutrition assessment) Per nursing assessment (home visit 12/06/22) Problems/Symptoms: Review of Systems Constitutional: Negative. HENT: Negative. Eyes: Negative. Respiratory: Positive for shortness of breath. Cardiovascular: Negative for leg swelling. Gastrointestinal: Negative. Endocrine: Negative. Genitourinary: Negative. Musculoskeletal: Positive for gait problem. Skin: Negative. Neurological: Positive for weakness. Hematological: Negative. Psychiatric/Behavioral: Negative. Pain 0 Physical Exam Constitutional: Appearance: Normal appearance. Cardiovascular: Rate and Rhythm: Normal rate. Pulses: Normal pulses. Heart sounds: Normal heart sounds. Pulmonary: Effort: Pulmonary effort is normal. Breath sounds: Normal breath sounds. Musculoskeletal: General: Normal range of motion. Right lower leg: Edema present. Left lower leg: Edema present. Skin: General: Skin is warm and dry. Capillary Refill: Capillary refill takes 2 to 3 seconds. Coloration: Skin is pale. Neurological: General: No focal deficit present. Mental Status: She is alert and oriented to person, place, and time. Anthropometric Measurements Current Weight: Wt Readings from Last 1 Encounters: 12/30/22 42.5 kg (93 lb 11.1 oz) Wt Readings from Last 5 Encounters: 12/30/22 42.5 kg (93 lb 11.1 oz) 11/01/22 42.5 kg (93 lb 11.1 oz) 09/26/22 42.5 kg (93 lb 12.8 oz) 08/25/22 47.1 kg (103 lb 13.4 oz) 06/22/22 47.1 kg (103 lb 13.4 oz) 10% weight loss over 6 months Weight Change: decreased by 10 pounds in the past 6 months BMI Readings from Last 1 Encounters: 12/30/22 17.70 kg/m Biochemical Data, Medical Tests, and Procedures Latest Reference Range & Units 10/28/22 10:53 Sodium 135 - 146 mmol/L 131 (L) Potassium 3.5 - 5.1 mmol/L 3.9 Chloride 98 - 107 mmol/L 99 CO2 22 - 32 mmol/L 26 BUN 6 - 20 mg/dL 13 Creatinine 0.5 - 1.0 mg/dL 0.6 Estimated Glomerular Filtration Rate >=60 mL/min 86 Anion Gap 7 - 15 mmol/L 6 (L) Glucose 70 - 120 mg/dL 98 Calcium 8.4 - 10.2 mg/dL 8.7 Protein 6.0 - 8.3 g/dL 4.8 (L) (L): Data is abnormally low Latest Reference Range & Units 10/28/22 10:53 11/30/22 08:47 HGB 12.0 - 15.3 g/dL 9.3 (L) 9.0 (L) HCT 36.0 - 45.2 % 29.1 (L) 29.5 (L) (L): Data is abnormally low Patient taking daily iron supplement Latest Reference Range & Units 08/24/22 10:30 10/28/22 10:53 Albumin 3.8 - 5.0 g/dL 3.0 (L) 3.1 (L) (L): Data is abnormally low Previous Nutrition Diagnosis: Food and nutrition-related knowledge deficit related to Inadequate fruit and vegetable intake, Inadequate calorie intake, Inadequate protein intake, Lack of exposure to nutritional management of Malnutrition/Low Albumin as evidenced by Reported diet and/or activity recall Progress towards goals: 1) Consume 3 meals/day of nutritious protein/calorie rich, low sodium foods--in progress (provided encouragement/reviewed foods to avoid/consume/suggested healthy food choices/info sent previously) 2) Trial of Boost Breeze or Ensure Clear (1-2x/day)--encouraged again--did not purchase--has decided not to buy since po intake is "doing good" (dislikes milk based nutrition supplements as well) 3) Consume more fruits/vegetables in daily diet (1 at breakfast/lunch, and 1 vegetable at dinner)--in progress (provided suggestions for healthy options/seasonal fruits and vegetables/reviewed My Plate Method/sent info previously) CURRENT NUTRITION DIAGNOSIS Food and nutrition-related knowledge deficit related to Inadequate fruit and vegetable intake, Inadequate calorie intake, Inadequate protein intake, Lack of exposure to nutritional management of Malnutrition/Low Albumin as evidenced by Reported diet and/or activity recall NUTRITION INTERVENTION: FOOD AND/OR NUTRIENT DELIVERY Meals Snacks NUTRITION EDUCATION Initial/brief nutrition education NUTRITION COUNSELING Strategies Nutrition Prescription: Diet: 2000 mg Sodium Good Nutrition High Calorie/High Protein [facility]: [facility] Jerandolph (Female): 956.84 (12/30/22 0901) Daily Calorie Needs: 957 Kcals + 500 Kcals = 1457 Kcals/day (promote weight gain/low BMI) Daily Protein Needs: 43-52 Grams protein (1-1.2g/kg/bw of 42.5 kg) Current Goals: 1) Consume 3 meals/day of nutritious protein/calorie rich, low sodium foods 2) Consume more fruits/vegetables in daily diet (1 at breakfast/lunch, and 1 vegetable at dinner) 3) Consume 2-3 bottles of water daily (16.9 oz each) Dietitian Action: Instructed pt on above diet using: Cardiac Education: 2000 mg Na Diet and List of High Sodium Foods Good Nutrition Education: Boosting Calorie Intake , Boosting Protein Intake, Enjoying More Fruits & Vegetables , Guide to Health Eating, Healthy Eating Away From Home , Snack Ideas, High Calorie Beverage Recipes, Make Healthy Food Choices, MyPlate , and Start Your Day with Healthy Breakfast Recommendations to Ordering Provider: Continue current plan of nutrition care. NUTRITION MONITORING AND EVALUATION: The following will be monitored and evaluated at the next visit: Monitor weight. Monitor labs. Review food logs. Monitor goals and progress. Plan: Patient scheduled to return in 4-6 weeks; dietitian phone # given for future reference. 15 minutes Medical Nutrition Therapy Time In: 1230 (12/30/22 1323) Time Out: 1240 (12/30/22 1323) 15 min (8-22 min) 30 min (23-37 min) 45 min (38-52 min) 60 min (53-67 min) 75 min (68-82 min) 90 min (83-97 min) 105 min (98-113 min) Ashley Light RDN [facility] documented in this encounter Plan of Treatment Upcoming Encounters Date Type Specialty Care Team Description 01/03/2023 Office Visit Family Medicine Ivy Meier MD [address] [place] [address] [place] [phone] 01/04/2023 Laboratory Laboratory Processing [facility] Draw [address], [place] [phone] 01/04/2023 Home Visit [facility] Raquel Lopez RN [address] [place] [id number] 2023 Home Visit [facility] Raquel Lopez RN [address] [place] [address] 01/24/2023 Nutrition Services [facility] Ashley Light, DECLANN [address] [facility] [place] [address] 02/01/2023 Telemedicine Dermatology Ramona Nichols MD [address] [place] [address] 02/27/2023 Laboratory Laboratory Processing [facility] Draw [address], [place] [phone] Health Maintenance Due Date Last Done Comments [...] D LEVEL ONCE IN A LIFETIME-USE SMARTSET# [id number] Completed 02/15/2019, 08/16/2016, 02/11/2016, Additional history exists [...] Adult Child Health Care Joseph r of Communications Station Manager [email or web address] Care Teams Guest Service Team Leader Relationship Specialty Start Date End Date Ivy Meier MD [address] [place] [address] [place] [phone] PCP - General Family Medicine 01/17/17 documented as of this encounter
--- OUTSIDE RECORDS SUMMARY | 2023-05-12 02:54 | External Medical Summary ---
Author Name Unknown Address Unknown Organization [id number]:[facility] [place] [facility] [address] [facility] [address] Laboratory Report Ordering Provider Test Date Status MAOFU,FU 11/30/2022 08:47:00 Final Observation Date Value Abnormality Reference (Units ) Status WBC, Total 11/30/2022 08:47:00 18.54 Above high normal 4.00-10.80 (K/uL) Final RBC 11/30/2022 08:47:00 2.40 3.85-5.15 (M/uL) Final Hemoglobin 11/30/2022 08:47:00 9.0 Below low normal 12.0-15.3 (g/dL) Final HCT 11/30/2022 08:47:00 29.5 Below low normal 36.0-45.2 (%) Final MCV 11/30/2022 08:47:00 122.9 81.5-97.5 (fL) Final MCH 11/30/2022 08:47:00 37.5 27.0-34.0 (pg) Final MCHC 11/30/2022 08:47:00 30.5 32.0-36.0 (g/dL) Final RDW 11/30/2022 08:47:00 27.9 11.5-15.5 (%) Final Platelets 11/30/2022 08:47:00 97 Below low normal 140-400 (K/uL) Final MPV 11/30/2022 08:47:00 10.7 6.6-11.1 (fL) Final Nucleated erythrocytes/100 leukocytes [Ratio] in Blood by Automated count 11/30/2022 08:47:00 1 Above high normal <=0 (/100 WBCs) Final Performing Location [facility] [place] [address] [facility] [address]
--- OUTSIDE RECORDS SUMMARY | 2023-05-12 02:54 | External Medical Summary ---
Author Name Unknown Address Unknown Organization [id number][facility] [address] [facility] [place] [address] Laboratory Report Ordering Provider Test Date Status MAOFU,FU 11/30/2022 08:47:00 Final Observation Date Value Abnormality Reference (Units ) Status SYNC LEUKOCYTES IN BLOOD BY AUTOMATED COUNT 11/30/2022 08:47:00 18.54 Above high normal 4.00-10.80 (K/uL) Final Neutrophils/100 leukocytes in Blood by Manual count 11/30/2022 08:47:00 68.0 40.0-75.0 (%) Final Lymphocytes/100 leukocytes in Blood by Manual count 11/30/2022 08:47:00 7.0 Below low normal 18.0-42.0 (%) Final Monocytes/100 leukocytes in Blood by Manual count 11/30/2022 08:47:00 11.0 1.0-11.0 (%) Final Eosinophils/100 leukocytes in Blood by Manual count 11/30/2022 08:47:00 2.0 0.0-6.0 (%) Final Basophils/100 leukocytes in Blood by Manual count 11/30/2022 08:47:00 7.0 Above high normal 0.0-2.0 (%) Final Metamyelocytes/100 leukocytes in Blood by Manual count 11/30/2022 08:47:00 2.0 Above high normal <=0.0 (%) Final Myelocytes/100 leukocytes in Blood by Manual count 11/30/2022 08:47:00 2.0 Above high normal <=0.0 (%) Final Blasts/100 leukocytes in Blood by Manual count 11/30/2022 08:47:00 1.0 Above high normal <=0.0 (%) Final Neutrophils [#/volume] in Blood by Manual count 11/30/2022 08:47:00 12.61 Above high normal 1.80-7.70 (K/uL) Final Lymphocytes [#/volume] in Blood by Manual count 11/30/2022 08:47:00 1.30 1.00-4.80 (K/uL) Final Monocytes [#/volume] in Blood by Manual count 11/30/2022 08:47:00 2.04 Above high normal 0.00-1.10 (K/uL) Final Eosinophils [#/volume] in Blood by Manual count 11/30/2022 08:47:00 0.37 0.00-0.70 (K/uL) Final Basophils [#/volume] in Blood by Manual count 11/30/2022 08:47:00 1.30 Above high normal 0.00-0.20 (K/uL) Final Metamyelocytes [#/volume] in Blood by Manual count 11/30/2022 08:47:00 0.37 Above high normal <=0.00 (K/uL) Final Myelocytes [#/volume] in Blood by Manual count 11/30/2022 08:47:00 0.37 Above high normal <=0.00 (K/uL) Final Blasts [#/volume] in Blood by Manual count 11/30/2022 08:47:00 0.19 Above high normal <=0.00 (K/uL) Final Schistocytes 11/30/2022 08:47:00 Moderate Abnormal None Seen Final Variant lymphocytes [Presence] in Blood by Light microscopy 11/30/2022 08:47:00 Present Abnormal None Seen Final Toxic granules [Presence] in Blood by Light microscopy 11/30/2022 08:47:00 Moderate Abnormal None Seen Final Neutrophils.vacuolated [Presence] in Blood by Light microscopy 11/30/2022 08:47:00 Present Abnormal None Seen Final Performing Location [facility]ORY [facility] [place] - [address] [place], [place] [address]
--- OUTSIDE RECORDS SUMMARY | 2023-05-12 02:54 | External Medical Summary ---
Author Name Unknown Address Unknown Organization K01[place] [place] [address] [place] [address] Laboratory Report Ordering Provider Test Date Status [facility] [place] [place] 11/30/2022 08:47:00 Final Observation Date Value Abnormality Reference (Units) Status Pathologist review of results 11/30/2022 08:47:00 Blood smear: Final Pathologist review of results 11/30/2022 08:47:00 - Leukocytosis with granulocytic left shift including rare circulating blasts seen on scanning, monocytosis, and basophilia. Final Pathologist review of results 11/30/2022 08:47:00 - Macrocytic anemia with marked anisopoikilocytosis including tear drop cells, macrocytes, schistocytes, and mild polychromasia. Occasional circulating nucleated red blood cells. Final Pathologist review of results 11/30/2022 08:47:00 - Mild thrombocytopenia with small to large, occasionally giant, forms. 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 Clinical correlation required. Final Performing Location [facility] [place] [address] [place] [address]
--- OUTSIDE RECORDS SUMMARY | 2023-05-12 02:54 | External Medical Summary | Summary of Care ---
Author Name Unknown Organization [facility] Address [address] [facility] [place] [address] Phone [phone] Care Team Providers Care Corporate Treasury Analyst Name Role Phone Ivy Meier MD Primary Care Provide r Reason for Visit * Reason Onset Date Comments [facility]: Maintenance 11/13/2022 Encounter Details Date Type Department Care Team Description 11/13/2022 Scheduled Telephone [facility], [facility] [address] [place] [address] [facility], Nurse [facility] [address] [place] [address] Allergies Active Allergy Reactions Severity Noted Date Comments Naproxen 01/06/2001 Rash localized to forearms and flushing Niacin 11/27/2000 Rash localized to forearms documented as of this encounter (statuses as of 11/13/2022) Medications Medication Sig Dispensed Refills Start Date [...] with breakfast. 30 Tab 5 05/26/2020 Active Mycophenolate Mofetil 500 MG Oral Tablet (CellCept)Indication s:Mucous membrane pemphigoid 1 tablet daily 90 Tablet 1 02/10/2022 Active Acetaminophen 500 MG Oral Tablet (Tylenol) Take 2 Tablets by mouth every 6 hours as needed. 0 Active Triamcinolone Acetonide 0.1 % Mouth/Throat Paste (Kenalog In Orabase)Indications: Mouth ulcers Apply to sores in mouth up to 3x daily as needed 10 g 1 05/06/2022 Active Omeprazole 20 MG Oral Capsule Delayed Release (PriLOSEC) TAKE ONE CAPSULE BY MOUTH EVERY DAY ONE hour BEFORE first meal of THE DAY 30 Capsule 5 06/03/2022 Active predniSONE 10 MG Oral Tablet (Deltasone)Indicatio ns:Mucous membrane pemphigoid Take 1/2 to 1 tablet by mouth in the morning with food 90 Tablet 1 07/11/2022 Active Polyethylene Glycol 3350 17 GM/SCOOP Oral Powder (MiraLax) Take 17 g by mouth in the morning. Dissolve one heaping tablespoon in 8 ounces of water or juice.. 0 09/26/2022 Active linaCLOtide 72 MCG Oral Capsule (Linzess)Indications :Slow transit constipation Take 1 Capsule by mouth daily before breakfast. 30 Capsule 5 09/26/2022 Active Levothyroxine Sodium 100 MCG Oral Tablet (Levoxyl)Indications :Postsurgical hypothyroidism Take 1 Tablet by mouth in the morning. (at least 30 min prior to breakfast or other meds). 30 Tablet 5 09/30/2022 Active Cefdinir 300 MG Oral Capsule (Omnicef) Take 1 Capsule by mouth in the morning and 1 Capsule before bedtime. Do all this for 7 days. For 7 days. 14 Capsule 0 11/11/2022 11/18/2022 Active documented as of this encounter (statuses as of 11/13/2022) Active Problems Problem Noted Date Chronic myeloproliferative [...] [facility] nurse shoe parts caser saw the patient yesterday and stated [...] for a possible early cellulitis. Her nurse shoe parts caser will call in checkup with her [...] as of this encounter (statuses as of 11/13/2022) Resolved Problems Problem Noted Date Resolved Date [...] as of this encounter (statuses as of 11/13/2022) Immunizations Name Administration Dates Next Due COVID-19 mRNA, LNP-s, No Pre serve, 2-Dose Series (Pfizer) 06/19/2020,05/29/2020 Pneumococcal Conjugate Vacc, 13 Valent (Prevnar) 02/04/2015 Pneumococcal Polysaccharide PPV23 (Pneumovax) 04/24/2003 Seasonal Influenza, Quadriva lent Hd (Fluzone Hd) 02/01/2021 Seasonal Influenza, Quadriva lent, No Preserve, 6 Mons & Above, IM 01/04/2019,01/25/2018,01/22/2017 Seasonal Influenza, Quadriva lent, No Preserve, Adjuvanted, 65+ Yrs, IM 01/03/2020 Seasonal Influenza, Quadriva lent, No Preserve, IM [...] Telephone Encounter - Rain Chandra RN - 11/13/2022 10:02 AM EDT [facility] Telephonic Nurse Follow-Up Call [facility] Subprogram: Primary Care at Home Follow Up Call Type: Weekend Call Acute issue requiring follow-up call: Complicated UTI Objective: 11/08/2022 2:12 PM 11/01/2022 11:28 AM 10/11/2022 3:14 PM 09/26/2022 12:03 PM 09/23/2022 2:42 PM VITALS ACROSS ENCOUNTERS BP 122/56 122/58 104/56 108/54 Pulse 80 82 73 102 Weight 42.5 kg 42.5 kg BMI 17.71 BMI 17.7 kg/m2 17.72 kg/m2 Lab Results Component Value Date BLOOD, URINE - [facility] Small (A) 11/08/2022 PROTEIN - [facility] 4.8 (L) 10/28/2022 PROTEIN, URINE - [facility] Trace (A) 11/08/2022 ESTERASE, URINE - [facility] Large (A) 11/08/2022 WBC AUTO - [facility] 17.53 (H) 10/28/2022 WBC, URINE - [facility] 50+ (A) 11/08/2022 NITRITE, URINE - [facility] Positive (A) 11/08/2022 QUANT URINE CULTURE GROWTH >100,000 colonies/mL Citrobacter koseri (A) 11/08/2022 Lab Results Component Value Date WBC AUTO - [facility] 17.53 (H) 10/28/2022 HGB - [facility] 9.3 (L) 10/28/2022 PLATELET AUTO - [facility] 88 (L) 10/28/2022 Lab Results Component Value Date SODIUM - [facility] 131 (L) 10/28/2022 POTASSIUM - [facility] 3.9 10/28/2022 CO2 - [facility] 26 10/28/2022 CREATININE - [facility] 0.6 10/28/2022 ESTIMATED GLOMERULAR FILTRATION RATE - [facility] 86 10/28/2022 ALBUMIN - [facility] 3.1 (L) 10/28/2022 AST - [facility] 13 10/28/2022 ALT - [facility] 13 10/28/2022 ALKALINE PHOSPHATASE - [facility] 59 10/28/2022 No results found for: PRO BNP, LEFT VENTRICULAR EJECTION FRACTION Remote Patient Monitoring: NONE Oxygen Needs: NO supplemental oxygen needs identified DME Needs: NO DME needs identified Medications: Cefdinir 300 mg BID x 7 days started on 11/11 Subjective: Condition Status: Worsening of symptoms Current Concerns: Pt has temp of 101.3 this morning and feels weak ( her baseline T is 99-99.5) When went over antibiotic, she was only taking in AM, forgot she was to take it at night also. She states she is drinking water and juice, ' pretty good amount" No confusion noted during conversation, responded to questions appropriately. Advised to continue fluids, Tylenol for fever, and start taking the antbx 2x/day. She stated she can't believe she forgot about taking it before bed. She will make sure she sets the nighttime pill out so she sees and doesn't miss another dose Aware will call her again tomorrow to see how she is feeling Disposition: Follow up call scheduled for tomorrow with LEAD CUSTODIAN Railroad Accountant Future Visits Scheduled: Future Appointments-next 60 days Date/Time Provider Specialty Dept Phone 11/13/2022 11:30 AM Nurse [facility] [phone] 11/17/2022 9:15 AM Ramona Nichols MD Dermatology [phone] 11/28/2022 8:20 AM [facility] Laboratory Processing [phone] 12/05/2022 3:30 PM Ashley Light RDN [facility] [phone] 12/06/2022 2:30 PM Raquel Lopez, DIMPLE [facility] [phone] 12/26/2022 8:00 AM [facility] Processing [phone] 02/27/2023 8:00 AM [facility] Draw [facility] Laboratory Processing [phone] Rain Chandra, RN documented in this encounter Plan of Treatment Upcoming Encounters Date Type Specialty Care Team Description 11/14/2022 Scheduled Telephone [facility] Steam Frame Operator, [address] [address] 11/17/2022 Telemedicine Dermatology Ramona Nichols MD [address] [place] [address] 11/28/2022 Laboratory Laboratory Processing [facility], [facility] Mobile Home Draw [address] [place] [address] 12/05/2022 Nutrition Services [facility] Ashley Light RDN [facility] [place] [address] 12/06/2022 Home Visit [facility] Raquel Lopez, RN [address] [place] [address] 12/26/2022 Laboratory Laboratory Processing [facility], [facility] Mobile Home Draw [address] [place] [address] 02/27/2023 Laboratory Laboratory Processing [facility], [facility] Mobile Home Draw [address] [place] [address] Health Maintenance Due Date Last Done Comments [...] D LEVEL ONCE IN A LIFETIME-USE SMARTSET# [id number] Completed 02/15/2019, 08/16/2016, 02/11/2016, Additional history exists [...] Adult Child Health Care Joseph r of Parts Sales Manager [email or web address] Care Teams Corporate Treasury Analyst Relationship Specialty Start Date End Date Ivy Meier MD PCP - General Family Medicine 01/17/17 documented as of this encounter
--- OUTSIDE RECORDS SUMMARY | 2023-05-12 02:54 | External Medical Summary | Summary of Care ---
Author Name Unknown Organization [facility] Address [address] [facility] [place] [address] Phone [phone] Care Team Providers Care Child Support Specialist Name Role Phone Ivy Meier MD Primary Care Provide r Encounter Details Date Type Department Care Team Description 11/25/2022 Result Scan Unspecified Department <No scans attached> Allergies Active Allergy Reactions Severity Noted Date Comments Naproxen 01/06/2001 Rash localized to forearms and flushing Niacin 11/27/2000 Rash localized to forearms documented as of this encounter (statuses as of 11/28/2022) Medications Medication Sig Dispensed Refills Start Date [...] every 6 hours as needed. 0 Active Omeprazole 20 MG Oral Capsule Delayed Release (PriLOSEC) TAKE ONE CAPSULE BY MOUTH EVERY DAY ONE hour BEFORE first meal of THE DAY 30 Capsule 5 06/03/2022 Active predniSONE 10 MG Oral Tablet (Deltasone)Indication [...] mouth ulcers 240 mL 0 11/17/2022 Active documented as of this encounter (statuses as of 11/28/2022) Active Problems Problem Noted Date Chronic myeloproliferative [...] worse along with may be little cellulitis. [facility] nurse block and case maker saw the patient yesterday and [...] for a possible early cellulitis. 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 CARDIOVAS SYS SYMP NEC 5 documented as of this encounter (statuses as of 11/28/2022) Immunizations Name Administration Dates Next Due COVID-19 [...] Encounters Date Type Specialty Care Team Description 11/30/2022 Laboratory Laboratory Processing [facility], [facility] Mobile Home Draw [address] [place] [address] 12/05/2022 Nutrition Services [facility] Ashley Light RDN [address] [place] [address] 12/06/2022 Home Visit [facility] Raquel Lopez, RN [address] [place] [address] 12/26/2022 Laboratory Laboratory Processing [facility], [facility] Mobile Home Draw [address] [place] [address] 02/01/2023 Telemedicine Dermatology Ramona Nichols MD [address] [place] [address] 02/27/2023 Laboratory Laboratory Processing [facility], [facility] Mobile Home Draw [address] [place] [address] Health Maintenance Due Date Last Done Comments [...] D LEVEL ONCE IN A LIFETIME-USE SMARTSET# [id number] Completed 02/15/2019, 08/16/2016, 02/11/2016, Additional history exists [...] Procedure Name Priority Date/Time Associated Diagnosis Comments PROCEDURE SCANNED RESULT 11/25/2022 documented in this encounter Results * PROCEDURE SCANNED RESULT (11/25/2022) 11/25/2022 No Physician Data Unknown SURGERY documented in this encounter Additional Health Concerns Infection Onset Date Last Indicated Resolved Time COVID-19 (confirmed) 08/10/2021 08/10/2021 documented as of this encounter Advance Directives Healthcare Agents on File Name Relationship Healthcare Agent Relationship Communication Suzy Prado Adult Child Health Care Joseph r of Magistrate Judge [email or web address] Care Teams Child Support Specialist Relationship Specialty Start Date End Date Ivy Meier MD [address] [place] [address] [place] [address] PCP - General Family Medicine 01/17/17 documented as of this encounter
--- OUTSIDE RECORDS SUMMARY | 2023-05-12 02:54 | External Medical Summary | Summary of Care ---
Author Name Unknown Organization [facility] Address [address] [facility] [place] [place] [address] Phone [phone] Care Team Providers Care Tapering Machine Operator Name Role Phone Ivy Meier MD Primary Care Provide r Reason for Visit * Reason Onset Date Comments [facility]: Acute 12/22/2022 Encounter Details Date Type Department Care Team Description 12/22/2022 Telephone [facility], [facility] [address] [place] [address] [facility], Nurse [facility] [address] [place] [address] [facility]: Acute Allergies Active Allergy Reactions Severity Noted Date Comments Naproxen 01/06/2001 Rash localized to forearms and flushing Niacin 11/27/2000 Rash localized to forearms documented as of this encounter (statuses as of 12/22/2022) Medications Medication Sig Dispensed Refills Start Date [...] as of this encounter (statuses as of 12/22/2022) Active Problems Problem Noted Date Chronic myeloproliferative [...] worse along with may be little cellulitis. [facility] nurse rehabilitation caseworker saw the patient yesterday and stated [...] for a possible early cellulitis. 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 CARDIOVAS SYS SYMP NEC 5 documented as of this encounter (statuses as of 12/22/2022) Immunizations Name Administration Dates Next Due COVID-19 [...] Telephone Encounter - Tahmina Ye RN - 12/22/2022 10:38 AM EDT [facility] certified industrial hygienist Acute Call Date: 12/22/2022 Time: 10:39 AM Name: Milagro Mckoy : 1935 Caller: Milagro Relationship to Self Chief Complaint Patient presents with [facility]: Acute HPI: Milagro Mckoy is a 87 year old female that is calling [facility] Intake to report edema with weeping fluid Nursing Assessment: Patient calling because she has edema of BLE. The edema is not new, but it has increased and there is some weeping of clear fluid from LLE ankle area. Denies redness, heat, streaking to BLE. No edema in abdomen, fingers. No open areas/blisters. Denies sob. She is keeping na/fluids within limits. Patient is not on a diuretic. Patient wears tubi sales agent marine insurance to BLE, Elevates BLE, Keeps fluid/na sodium within limits. Patient has moved to a new appt in same building. [address] is now [address] Changed in chart Patient's chief complaint for this call: Edema Pain Denies pain Baseline Assessment Able to performing ADLs at baseline (walking, daily tasks, etc.): Yes Chief Complaint is related to a chronic condition: Unknown Patient prescribed oxygen? No Patient has been ordered DME equipment (assistive devices, respiratory equipment, etc.): No Medication Reconciliation: (See medication list) Received flu shot this season: No Taking medication as ordered: Yes Medications ordered/taking to treat reason for call: No Heart failure symptoms: No COPD exacerbation symptoms: No Reinforcement Education: Take all medications as ordered Keep fluids/na within limits Elevated BLE throughout day Continue with Tubi gear milling machine set up operator socks Monitor for open areas/blister Treatment/Plan: (need to report) Level of call: Non-Acute Recommended treatment plan: Phone calls x 24/48 hrs Clinical advice given over the phone Routing to care team to review and make recommendations if warranted. Call back instructions provided to patient. Tahmina Ye. DIMPLE [facility] certified industrial hygienist [phone] documented in this encounter Plan of Treatment Upcoming Encounters Date Type Specialty Care Team Description 12/23/2022 Scheduled Telephone [facility] [place] [address] 12/24/2022 Scheduled Telephone [facility], Nurse [address] [place] [address] 12/28/2022 Laboratory Laboratory Processing [facility] Mobile Home Draw [address] [place] [address] 12/30/2022 Nutrition Services [facility] Ashley Light RDN [address] [facility] [address] [facility]23 Home Visit [facility] Raquel Lopez RN [address] [place] [address] 02/01/2023 Telemedicine Dermatology Ramona Nichols MD [address] [place] [address] 02/27/2023 Laboratory Laboratory Processing [facility] Mobile Home Draw [address] [place] [address] Health Maintenance Due Date Last Done Comments [...] D LEVEL ONCE IN A LIFETIME-USE SMARTSET# [id number] Completed 02/15/2019, 08/16/2016, 02/11/2016, Additional history exists [...] Adult Child Health Care Joseph r of Type Cutter [email or web address] Care Teams Tapering Machine Operator Relationship Specialty Start Date End Date Ivy Meier MD [address] [place] [address] [place] [address] PCP - General Family Medicine 01/17/17 documented as of this encounter
--- OUTSIDE RECORDS SUMMARY | 2023-05-12 02:54 | External Medical Summary | Summary of Care ---
Author Name Unknown Organization [facility] Address [address] [place] [address] Phone [phone] Care Team Providers Care Machine Welder Name Role Phone Ivy Meier MD Primary Care Provide r Reason for Visit * Reason Onset Date Comments [facility]: Maintenance 11/14/2022 Encounter Details Date Type Department Care Team Description 11/14/2022 Scheduled Telephone [facility], [facility] [address] [facility] [place] [address] Coordinator, [facility] [address] [facility] [place] [address] Allergies Active Allergy Reactions Severity Noted Date Comments Naproxen 01/06/2001 Rash localized to forearms and flushing Niacin 11/27/2000 Rash localized to forearms documented as of this encounter (statuses as of 11/14/2022) Medications Medication Sig Dispensed Refills Start Date [...] as of this encounter (statuses as of 11/14/2022) Active Problems Problem Noted Date Chronic myeloproliferative [...] little cellulitis. [facility] nurse immigration case manager saw the patient yesterday and [...] for a possible early cellulitis. Her nurse immigration case manager will call in checkup with [...] as of this encounter (statuses as of 11/14/2022) Resolved Problems Problem Noted Date Resolved Date [...] as of this encounter (statuses as of 11/14/2022) Immunizations Name Administration Dates Next Due COVID-19 [...] encounter Miscellaneous Notes * Telephone Encounter - Deja Brito RN - 11/14/2022 9:53 AM EDT [facility] Telephonic Nurse Follow-Up Call [facility] Subprogram: Primary Care at Home Follow Up Call Type: Routine follow up call / Status Check Acute issue requiring follow-up call: Complicated UTI [...] needs identified Medications: New medication(s) added: Cefdinir 300 mg BID x 7 days started on 11/11 Subjective: Condition Status: Symptoms resolved and back to baseline Current Concerns: Phone call to patient who reports she is feeling "a lot better" today. Patient denies any urinary symptoms. -burning, -increased freq/urgency, -hematuria. Denies fever. No confusion noted during conversation. Patient reports adequate PO fluid intake. Patient is taking abx twice daily. Advised to continue fluids,Tylenol for fever and abx BID as directed, verbalized understanding. Patient states she does not feel she needs f/u phone call tomorrow, will call [facility] back with any newor worsening symptoms Disposition: Issue resolved. All appropriate follow up scheduled. Follow up PC 11/18 s/p abx Future Visits Scheduled: Future Appointments-next 60 days Date/Time Provider Specialty Dept Phone 11/17/2022 9:15 AM Ramona Nichols MD Dermatology [phone] 11/28/2022 8:20 AM [facility] [place] Processing [phone] 12/05/2022 3:30 PM Ashley Light RDN [facility] [phone] 12/06/2022 2:30 PM Raquel Lopez RN [facility] [phone] 12/26/2022 8:00 AM [facility] Laboratory Processing [phone] 02/27/2023 8:00 AM [facility] Processing [phone] Deja Brito, DIMPLE documented in this encounter Plan of Treatment Upcoming Encounters Date Type Specialty Care Team Description 11/17/2022 Telemedicine Dermatology Ramona Nichols MD [address] [place] [address] 11/18/2022 Scheduled Telephone [facility] [place]erry Captain, [address] [address] 11/28/2022 Laboratory Laboratory Processing [facility], [facility] Mobile Home Draw [address] [place] [address] 12/05/2022 Nutrition Services [facility] Ashley Light RDN [address] [place] [address] 12/06/2022 Home Visit [facility] Raquel Lopez, DIMPLE [address] [place] [address] 12/26/2022 Laboratory Laboratory Processing [facility], [facility] Home Draw [address] [place] [address] 02/27/2023 Laboratory Laboratory Processing [facility], [facility] Mobile Home Draw [address] [place] [address] Health Maintenance Due Date Last Done Comments [...] D LEVEL ONCE IN A LIFETIME-USE SMARTSET# [id number] Completed 02/15/2019, 08/16/2016, 02/11/2016, Additional history exists [...] Adult Child Health Care Joseph r of Immigration Case Manager [email or web address] Care Teams Machine Welder Relationship Specialty Start Date End Date Ivy Meier MD PCP - General Family Medicine 01/17/17 documented as of this encounter
--- OUTSIDE RECORDS SUMMARY | 2023-05-12 02:54 | External Medical Summary | Summary of Care ---
Author Name Unknown Organization [facility] Address [address] [facility] [place] [address] Phone [phone] Care Team Providers Care Powerplant Operator Name Role Phone Sukhwinder Meier MD Primary Care Provide r Reason for Visit * Reason Comments Follow Up Patient stated legs were really bad last night and both swelled bad. Purpleness is going away but there is a lot of swelling bilaterally. PCP is aware.Patient also has a tacho on her face and her daughter Suzy will be sending photo to Dr Nails prior to telephone visit. 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 Dissolve one heaping tablespoon in 8 ounces of water or juice.. 0 3 Active linaCLOtide 72 MCG Oral Capsule (Linzess)Indicatio ns:Slow transit constipation Take 1 Capsule by mouth daily before breakfast. 30 Capsule 5 3 Active Levothyroxine Sodium 100 MCG Oral Tablet (Levoxyl)Indicatio ns:Postsurgical hypothyroidism Take 1 Tablet by mouth in the morning. (at least 30 min prior to breakfast or other meds). 30 Tablet 5 3 Active Cefdinir 300 MG Oral Capsule (Omnicef) Take 1 Capsule by mouth in the morning and 1 Capsule before bedtime. Do all this for 7 days. For 7 days. 14 Capsule 0 3 11/19/19 23 Active Mycophenolate Mofetil 500 MG Oral Tablet (CellCept)Indicati ons:Mucous membrane pemphigoid 1 tablet daily 90 Tablet 1 3 Active Dexamethasone 0.5 MG/5ML Oral Solution (Decadron)Indicati ons:Mucous membrane pemphigoid 5 ml twice daily (swish and spit) as needed during flares of mouth ulcers 240 mL 0 3 Active Mycophenolate Mofetil 500 MG Oral Tablet (CellCept)Indicati ons:Mucous membrane pemphigoid 1 tablet daily 90 Tablet 1 2 11/18/19 23 Discontinued(Re fill) Triamcinolone Acetonide 0.1 % Mouth/Throat Paste (Kenalog In Orabase)Indication s:Mouth ulcers Apply to sores in mouth up to 3x daily as needed 10 g 1 3 11/18/19 23 Discontinued Dexamethasone 0.5 MG/5ML Oral Solution (Decadron)Indicati ons:Mucous membrane pemphigoid 5 ml twice daily as needed during flares of mouth ulcers 240 mL 0 3 11/18/19 23 Discontinued documented as of this encounter (statuses as of 11/18/2022) Active Problems Problem Noted Date Chronic myeloproliferative [...] worse along with may be little cellulitis. [facility] nurse case repairer saw the patient yesterday and stated that [...] a possible early cellulitis. Her nurse case repairer will call in checkup with her later [...] as of this encounter (statuses as of 11/18/2022) Resolved Problems Problem Noted Date Resolved Date [...] 12/19/2008 0 Overview: Evelyn Myers RN [phone] Edema [...] as of this encounter (statuses as of 11/18/2022) Immunizations Name Administration Dates Next Due COVID-19 [...] as of this encounter Progress Notes * Ramona Nichols MD - 11/17/2022 9:14 AM EDT After connecting to the patient via phone, the patient verified their identity with their date of and verbally consented to evaluation and management of their condition through telemedicine. This visit was performed through Telemedicine during the COVID-19 Health Crisis during a state of National Emergency. The patient is aware that we will bill their insurance for this visit following Medicare guidelines, but they may be responsible for some or all of the visit charges if their insurancedeems this "non-covered". If pt was a minor, N/A was present. Also spoke with pt's daughter Suzy Patient location: HOME. I was in a hospital or clinic location. After connecting through televideo,patient was verified with two unique identifiers. Patient (or authorized legal electronics parts sales representative) was then informed that this was a Telemedicine visit and being conducted confidentially over secure lines. Methods to assure confidentiality were taken. Patient acknowledged consent and understanding of pr ivacy and security of the Telemedicine visit. The patient agreed to participate. This is an established patient evaluated in my specialty within the past three years yes Visit Disposition: Routine follow-up Total call duration was 13 minutes. SUBJECTIVE: History of Present Illness: Milagro Mckoy is a 87 year old female seen today for follow up of MMP. Date Last Appointment: 10/07/2020 (in office), 08/10/2022 (telemedicine). Last attempted treatments include prednisone (10 mg daily lately b/c of oral ulcer flare), mg daily. Home nursing in place. Hx myelofibrosis and essential thrombocytosis Hx ovarian CA Hx lymphedema REVIEW OF SYSTEMS: SKIN: No other new or changing moles. HEME/LYMPH: No new or enlarging lumps or bumps. MEDICA TIONS: Current Outpatient Medications Medication Sig Dispense Refill [...] mouth daily with breakfast. 30 Tab 5 Mycophenolate Mofetil 500 MG Oral Tablet (CellCept) 1 tablet daily 90 Tablet 1 Acetaminophen 500 MG Oral Tablet (Tylenol) Take 2 Tablets by mouth every 6 hours as needed. Triamcinolone Acetonide 0.1 % Mouth/Throat Paste (Kenalog In Orabase) Apply to sores in mouth up to 3x daily as needed 10 g 1 Omeprazole 20 MG Oral Capsule Delayed Release (PriLOSEC) TAKE ONE CAPSULE BY MOUTH EVERY DAY ONE hour BEFORE first meal of THE DAY 30 Capsule 5 predniSONE 10 MG Oral Tablet (Deltasone) Take 1/2 to 1 tablet by mouth in the morning with food90 Tablet 1 Polyethylene Glycol 3350 17 GM/SCOOP Oral Powder (MiraLax) Take 17 g by mouth in the morning. Dissolve one heaping tablespoon in 8 ounces of water or juice.. linaCLOtide 72 MCG Oral Capsule (Linzess) Take 1 Capsule by mouth daily before breakfast. 30 Capsule 5 Levothyroxine Sodium 100 MCG Oral Tablet (Levoxyl) Take 1 Tablet by mouth in the morning. (at least 30 min prior to breakfast or other meds). 30 Tablet 5 Cefdinir 300 MG Oral Capsule (Omnicef) Take 1 Capsule by mouth in the morning and 1 Capsule before bedtime. Do all this for 7 days. For 7 days. 14 Capsule 0 No current facility-administered medications for this visit. ALLERG IES: Naproxen and Niacin OBJECTIVE: GEN: Healthy, alert, no distress, appears oriented, pleasant and cooperative. SKIN: pt and daughter note a few ulcers in mouth and 'throat' ASSESS MENT/PLAN: 1. 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 The patient and/or person accompanying patient demonstrates understanding of the visit and treatment. Ramona Nichols MD 11/17/2022 9:15 AM Ref: SELF[[id number]] NO STREET ADDRESS AVAILABLE None (office) None (fax) PCP: SUKHWINDER MEIER [address] [place] [address] [place] [address] documented in this encounter Nursing Notes * Katiana Lang LPN - 11/17/2022 8:24 AM EDT Patient identified by name and date of . Do you have any concerns about pain management for today's visit? No Living Will or Advance Directive for Health Care as noted on problem list. [facility] is a way you can talk to your provider online through e-mail. Would you like to sign up? I can activate it for you? ALREADY ACTIVE Chief Complaint Patient presents with Follow Up Patient stated legs were really bad last night and both swelled bad. Purpleness is going away but there is a lot of swelling bilaterally. PCP is aware.Patient also has a tacho on her face and her daughter Suzy will be sending photo to Dr Nails prior to telephone visit. documented in this encounter Plan of Treatment Upcoming Encounters Date Type Specialty Care Team Description 11/18/2022 Scheduled Telephone [facility] Director, Rodrigo Escobar [address] [place] [address] 11/28/2022 Laboratory Laboratory Processing [facility] Mobile Home Draw [address] [place] [address] 12/05/2022 Nutrition Services [facility] Ashley Light RDN [address] [place] [address] 12/06/2022 Home Visit [facility] Raquel Lopez, RN [address] [place] [address] 12/26/2022 Laboratory Laboratory Processing [facility], [facility] Mobile Home Draw [address] [place] [address] 02/01/2023 Telemedicine Dermatology Ramona Nichols MD [address] [place] [address] 02/27/2023 Laboratory Laboratory Processing [facility], [facility] Mobile Home Draw [address] [place] [facility] [place] [address] Health Maintenance Due Date Last Done Comments [...] D LEVEL ONCE IN A LIFETIME-USE SMARTSET# [id number] Completed 02/15/2019, 08/16/2016, 02/11/2016, Additional history exists [...] Adult Child Health Care Joseph r of Powerplant Operator [email or web address] et Care Teams Powerplant Operator Relationship Specialty Start Date End Date Sukhwinder Meier MD [address] [place] [address] [place] [address] PCP - General Family Medicine 01/17/17 documented as of this encounter
--- OUTSIDE RECORDS SUMMARY | 2023-05-12 02:54 | External Medical Summary | Summary of Care ---
Author Name Unknown Organization [facility] Address [address] [place] [address] Phone [phone] Care Team Providers Care Thaw Shed Heater Tender Name Role Phone Ivy Meier MD Primary Care Provide r Reason for Visit * Reason Comments [facility]: Maintenance Encounter Details Date Type Department Care Team Description 12/06/2022 Home Visit [facility], [facility] [address] [facility] [place] [address] Raquel Lopez, DIMPLE [address] [place] [address] Allergies Active Allergy Reactions Severity Noted Date Comments Naproxen 01/06/2001 Rash localized to forearms and flushing Niacin 11/27/2000 Rash localized to forearms documented as of this encounter (statuses as of 12/08/2022) Medications Medication Sig Dispensed Refills Start Date [...] as of this encounter (statuses as of 12/08/2022) Active Problems Problem Noted Date Chronic myeloproliferative [...] along with may be little cellulitis. [facility] nurse gearcase assembler saw the patient yesterday and stated [...] for a possible early cellulitis. 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 CARDIOVAS SYS SYMP NEC 5 documented as of this encounter (statuses as of 12/08/2022) Immunizations Name Administration Dates Next Due COVID-19 [...] Sign Reading Time Taken Comments Blood Pressure 122/52 12/06/2022 11:43 AM EDT Pulse 80 12/06/2022 11:43 AM EDT Temperature 37 C (98.6 F) 12/06/2022 11:43 AM EDT Respiratory Rate 18 12/06/2022 11:43 AM EDT Oxygen Saturation 95% 12/06/2022 11:43 AM EDT Inhaled Oxygen Concentration - - Weight - - Height - - Body Mass Index - - documented in this encounter Progress Notes * Raquel Lopez, DIMPLE - 12/06/2022 10:54 AM EDT [facility] Pediatric Oncologist Visit Date: 12/06/2022 Time: 10:55 AM Name: Milagro Mckoy : 1935 Current Concerns: Patient seen for follow up- h/o Mucous Membrane Pemphigoid, Essential thrombocytosis, H/O Covid Patient reports overall she is gradually getting weaker. States she is eating and drinking well. Just feels weaker- she wants to avoid the hospital but willgo if she absolutely has to. Bowels have improved with taking prune juice/apple juice. Daughter present for visit. VS wnl Lungs clear bilaterally Sob with exertion Edema continues to RLE- from thigh to ankle Some edema in LLE- Encouraged wraps to RLE last visit- patient did not tolerate. Voiding without difficulty Bowels wnl- per report Appetite good Taking fluids well Spoke with Tate Craven PA-C regarding LE edema- Daughter to order Tubigrips. RLE measured. Tubigrips will be easier for patient to apply. Elevate BLE as much as possible. Daughter and patient voice understanding. Problems/Symptoms: Review of Systems Constitutional: Negative. HENT: Negative. Eyes: Negative. Respiratory: Positive for shortness of breath. Cardiovascular: Negative for leg swelling. Gastrointestinal: Negative. Endocrine: Negative. Genitourinary: Negative. Musculoskeletal: Positive for gait problem. Skin: Negative. Neurological: Positive for weakness. Hematological: Negative. Psychiatric/Behavioral: Negative. Physical Exam: BP 122/52 (BP Site: Left Arm, BP Position: Sitting, BP Cuff Size: Regular) | Pulse 80 | Temp 37 C(98.6 F) (Tympanic) | Resp 18 | SpO2 [...] and oriented to person, place, and time. [facility] Completed this Visit: No. No falls since last visit Treatment/Plan: Tubigrips BLE Elevate ble- edema Low na diet Fluids encouraged Fall precautions- walker Continue medications as prescribed Keep all upcoming MD appointments RN CM follow up in 6 weeks Home Interventions Provided: Consulted PCP/Specialist Reinforced current Plan of Care, including self-management and medication regimen Patient's Goals of Care: Not going to the hospital Continue to do my own shopping Patient's 'Red Flags': Increase SOB/lightheadedness/dizziness Mouth sores/ulcers Temperature not relieved by APAP Patient Needs to Remember: Call [facility] with any medical concerns/ red flags Referrals Needed: N/a Follow Up: Is there cellular connectivity/connectivity in the home? Yes Does the patient have internet in the home? No Patient encouraged to call the intake phone number for all urgent but not emergent issues. Scheduled to follow up with patient in 6 weeks. Raquel Morgan RN 12/06/2022 10:55 AM documented in this encounter Plan of Treatment Upcoming Encounters Date Type Specialty Care Team Description 12/26/2022 Laboratory Laboratory Processing [facility] Mobile Home Draw [address] [place] [address] 12/30/2022 Nutrition Services [facility] Ashley Light RDN [address] [place] [address] 2023 Home Visit [facility] Raquel Lopez RN [address] [place] [address] 02/01/2023 Telemedicine Dermatology Ramona Nichols MD [address] [place] [address] 02/27/2023 Laboratory Laboratory Processing [facility], [facility] Mobile Home Draw [address] [place] [address] Health Maintenance Due Date Last Done Comments [...] D LEVEL ONCE IN A LIFETIME-USE SMARTSET# [id number] Completed 02/15/2019, 08/16/2016, 02/11/2016, Additional history exists [...] Adult Child Health Care Joseph r of House Director [email or web address] et Care Teams Thaw Shed Heater Tender Relationship Specialty Start Date End Date Ivy Meier MD [address] [place] [address] [place] [phone] PCP - General Family Medicine 01/17/17 documented as of this encounter"
--- OUTSIDE RECORDS SUMMARY | 2023-05-12 02:54 | External Medical Summary | Summary of Care ---
Author Name Unknown Organization [facility] Address [address] [facility] [place] [address] Phone [phone] Care Team Providers Care Tag Writer Name Role Phone Ivy Meier MD Primary Care Provide r Reason for Visit * Reason Onset Date Comments [facility]: Acute 12/22/2022 Encounter Details Date Type Department Care Team Description 12/22/2022 Telephone [facility], [facility] 132 [place] [address] [facility], Nurse [facility] [address] [place] [address] [facility]: Acute Allergies Active Allergy [...] little cellulitis. [facility] nurse director of casework services saw the patient yesterday and stated that [...] for a possible early cellulitis. Her nurse director of casework services will call in checkup with her later [...] MANAGEMENT 12/19/2008 0 Overview: Evelyn Myers RN [phone] Edema 07/09/2007 02/04/2015 Postmenopausal bleeding 12/15/2005 02/05/20 [...] Encounter - Tahmina Ye RN - 12/22/2022 12:42 PM EDT Call to patient to see if she has someone who can wrap her legs or put on compression stockings. She said she had a nurse today (comes once a month wrap legs. She said her daughter comes daily. I asked if she can wrap her legs with preston wraps. She said she will ask her. Today she is gone away for the day. Reminded her to elevated the legs as much as possible and watch na intake. Will call tomorrowto follow up. Tahmina Ye. RN [facility] mirror painter [phone] * Telephone Encounter - Shaun Hdz MD - 12/22/2022 11:08 AM EDT In addition to leg elevation, I would recommend wearing knee-high compression stockings or Preston bandages through the daytime. Assistance from family or other caregiver might be necessary for her to use compression daily Low-sodium diet Monitor for signs of infection * Telephone Encounter - Tahmina Ye RN - 12/22/2022 10:38 AM EDT [facility] mirror painter Acute Call Date: 12/22/2022 Time: 10:39 AM Name: Milagro APPIAHN: [id number] : 1935 Caller: Milagro Relationship to Self Chief Complaint Patient presents with [facility]: Acute HPI: Milagro Mckoy is a 87 year old female that is calling [facility] Intake to report edema with [...] not on a diuretic. Patient wears tubi spinneret person to BLE, Elevates BLE, Keeps fluid/na sodium [...] Elevated BLE throughout day Continue with Tubi head track coach socks Monitor for open areas/blister Treatment/Plan: (need to report) Level of call: Non-Acute Recommended treatment plan: Phone calls x 24/48 hrs Clinical advice given over the phone Routing to care team to review and make recommendations if warranted. Call back instructions provided to patient. Tahmina Ye. DIMPLE [facility] mirror painter [phone] documented in this encounter Plan of Treatment Upcoming Encounters Date Type Specialty Care Team Description 12/23/2022 Scheduled Telephone [facility] Automobile Service Writer, Rodrigo [address] [place] [address] 12/24/2022 Scheduled Telephone [facility], Nurse [facility] [address] [place] [address] 12/28/2022 Laboratory Laboratory Processing [facility], [facility] Mobile Home Draw [address] [place] [address] 12/30/2022 Nutrition Services [facility] Ashley Light, RDN [address] [place] [address] 2023 Home Visit [facility] Raquel Lopez, RN [address] [place] [address] 02/01/2023 Telemedicine Dermatology Ramona Nichols MD [address] [place] [address] 02/27/2023 Laboratory Laboratory Processing [facility] Mobile Home Draw [address] [place] [address] Health Maintenance Due Date Last Done Comments [...] D LEVEL ONCE IN A LIFETIME-USE SMARTSET# [id number] Completed 02/15/2019, 08/16/2016, 02/11/2016, Additional history exists [...] Communication Suzy Prado Adult Child Health Care Jospeh r of Pony Ride Operator [email or web address] Care Teams Tag Writer Relationship Specialty Start Date End Date Ivy Meier MD [address] [place] [address] [place] [address] PCP - General Family Medicine 01/17/17 documented as of this encounter
--- OUTSIDE RECORDS SUMMARY | 2023-05-12 02:54 | External Medical Summary | Summary of Care ---
Author Name Unknown Organization [facility] Address [address] [facility] [place] [address] Phone [phone] Care Team Providers Care Radar Signal Processing Engineer Name Role Phone Iyv Meier MD Primary Care Provide r Reason for Visit * Reason Onset Date Comments [facility]: Maintenance 11/18/2022 Encounter Details Date Type Department Care Team Description 11/18/2022 Scheduled Telephone [facility], [facility] 132 [facility] [place] [address] Coordinator, [facility] 132 [facility] [place] [address] Allergies Active Allergy Reactions Severity Noted Date [...] days. 14 Capsule 0 11/11/2022 11/18/2022 Active Mycophenolate Mofetil 500 MG Oral Tablet (CellCept)Indication s:Mucous membrane pemphigoid 1 tablet daily 90 Tablet 1 11/17/2022 Active Dexamethasone 0.5 MG/5ML Oral Solution (Decadron)Indication s:Mucous membrane pemphigoid 5 ml twice daily (swish [...] with may be little cellulitis. [facility] nurse showcase maker saw the patient yesterday and stated [...] for a possible early cellulitis. Her nurse showcase maker will call in checkup with her [...] Telephone Encounter - Rain Chandra RN - 11/18/2022 8:10 AM EDT Call not made Patient reports UTI sympotms post antbx have resolved Did not wish to have follow up call. Was made aware to call [facility] with any new or returning symptoms Faby Chandra RN, BSN [facility] Intake Triage Coordinator [phone] documented in this encounter Plan of Treatment Upcoming Encounters Date Type Specialty Care Team Description 11/28/2022 Laboratory Laboratory Processing [facility] Mobile Home Draw [address] [place] [address] 12/05/2022 Nutrition Services [facility] Ashley Light RDN [address] [facility] [place] [address] 12/06/2022 Home Visit [facility] Raquel Lopez RN [address] [facility] [place] [address] 12/26/2022 Laboratory Laboratory Processing [facility] Mobile Home Draw [address] [place] [address] 02/01/2023 Telemedicine Dermatology Ramona Nichols MD [address] [place] [address] 02/27/2023 Laboratory Laboratory Processing [facility] Mobile Home Draw [address] [place] [address] Health Maintenance Due Date Last Done Comments [...] D LEVEL ONCE IN A LIFETIME-USE SMARTSET# [id number] Completed 02/15/2019, 08/16/2016, 02/11/2016, Additional history exists [...] Adult Child Health Care Joseph r of Lap Cutter Truer Operator [email or web address] Care Teams Radar Signal Processing Engineer Relationship Specialty Start Date End Date Ivy Meier MD [address] [place] [address] [place] [address] PCP - General Family Medicine 01/17/17 documented as of this encounter
--- OUTSIDE RECORDS SUMMARY | 2023-05-12 02:54 | External Medical Summary ---
Author Name Unknown Address Unknown Organization K01:[facility] - [address] [place] [address] Laboratory Report Ordering Provider Test Date Status RUBEN MEDRANO 11/30/2022 08:47:00 Final Observation Date Value Abnormality Reference (Units ) Status [facility] 11/30/2022 08:47:00 202 <=250 (U/L ) Final Performing Location [facility] - [address] [place] [address]
--- OUTSIDE RECORDS SUMMARY | 2023-05-12 02:54 | External Medical Summary | Summary of Care ---
Author Name Unknown Organization [facility] Address [address] [place] [address] Phone [phone] Care Team Providers Care Personnel Consultant Name Role Phone Ivy Meier MD Primary Care Provide r Reason for Visit * Reason Comments Medical Nutrition Therapy Encounter Details Date Type Department Care Team Description 12/05/2022 Nutrition Services [facility], [facility] [address] [facility] [place] [address] Ashley Light, RDN [address] [place] [address] Mild protein-calorie malnutrition (HCC)* Allergies Active Allergy Reactions Severity Noted Date Comments Naproxen 01/06/2001 Rash localized to forearms and flushing Niacin 11/27/2000 Rash localized to forearms documented as of this encounter (statuses as of 12/05/2022) Medications Medication Sig Dispensed Refills Start Date [...] as of this encounter (statuses as of 12/05/2022) Active Problems Problem Noted Date Chronic myeloproliferative [...] little cellulitis. [facility] nurse dependency case manager saw the patient yesterday and [...] for a possible early cellulitis. 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 CARDIOVAS SYS SYMP NEC 5 documented as of this encounter (statuses as of 12/05/2022) Immunizations Name Administration Dates Next Due COVID-19 [...] of this encounter Progress Notes * Ashley Light, JAYNA - 12/05/2022 1:51 PM EDT NUTRITION PROGRESS NOTE - [facility] Patient Phone Numbers: [phone] (Home Phone) Call placed to pt as follow-up from initial nutrition assessment from 11/01/22. Patient denies any issues related to diet information previously provided. Dietary meal pattern/usual po intake as indicated below: Breakfast:cereal, banana, milk/scrambled eggs, toast/ oatmeal, hot tea Snacks:nothing Lunch:homemade soups w/protein source, crackers usually Snacks:nothing Dinner:"piece of meat", potatoes, rice, pasta, green beans, carrots, peas Snacks:blueberry waffles, hot tea Drinks:water, hot tea, Gatorade Patientcontinues tolive alone but daughter and granddaughterwillassist with care/shopping/prep/cooking ofsome meals for Patient 2soreson her tongue remain (only had 1 sore on tongue previously)--MD ordered "medicated mouth wash" --againreviewed foods to avoid/consume(sentinfo previously)--continues toconsumebland, soft to chew foods, low acidic foods/drinks PO intake/appetite "doing OK" despite pain from sores on tongue (provided encouragement) Consuming a bit more fluid since last call (encouraged 2-3 bottles of water/daily--16.9 oz each--provided encouragement) Patient reports no food insecurity this call Patient with episodes of constipation "occasionally"--discussed foods/fluids to include in daily diet to help alleviate symptoms (sent info) Patient denies any issues related to changes in wt. Wt Readings from Last 3 Encounters: 11/01/22 42.5 kg (93 lb 11.1 oz) 09/26/22 42.5 kg (93 lb 12.8 oz) 08/25/22 47.1 kg (103 lb 13.4 oz) Previous Nutrition Goals: 1) Consume 3 meals/day of nutritious protein/calorie rich, low sodium foods--in progress(providedencouragement/reviewed foods to avoid/consume/suggested healthy food choices/info sent previously) 2) Trial of Boost Breeze or Ensure Clear (1-2x/day)--encouraged again--did not purchase--has decided not to buy since po intake is "doing OK" (dislikes milk based nutrition supplements as well) 3) Consume more fruits/vegetables in daily diet (1 at breakfast/lunch, and 1 vegetable at dinner)--in progress(provided suggestions for healthy options/seasonal fruits and vegetables/reviewed My Plate Method/sent info previously) Reinforced nutrition goals. Encouraged continued progress towards goals Follow up as scheduled. Encouraged pt to contact [facility] at [phone] for any non-emergent changes/concerns. Ashley Light MS, RDN, LDN Clinical Dietitian [facility] 12/05/2022 1:51 PM documented in this encounter Plan of Treatment Upcoming Encounters Date Type Specialty Care Team Description 12/06/2022 Home Visit [facility] Raquel Lopez RN [address] [place] [address] 12/26/2022 Laboratory Laboratory Processing [facility] Mobile Home Draw [address] [place] [address] 12/30/2022 Nutrition Services [facility] Ashley Light RDN [address] [place] [address] [place] [address] 02/01/2023 Telemedicine Dermatology Ramona Nichols MD [address] [place] [address] 02/27/2023 Laboratory Laboratory Processing [facility] Mobile Home Draw [address] [place], [place] [id number] Health Maintenance Due Date Last Done Comments [...] D LEVEL ONCE IN A LIFETIME-USE SMARTSET# [id number] Completed 02/15/2019, 08/16/2016, 02/11/2016, Additional history exists [...] Child Health Care Joseph r of Senior Oracle Adf Developer [email or web address] Care Teams Personnel Consultant Relationship Specialty Start Date End Date Ivy Meier MD [address] [place] [address] [place] [address] PCP - General Family Medicine 01/17/17 documented as of this encounter
--- OUTSIDE RECORDS SUMMARY | 2023-05-12 02:54 | External Medical Summary | Summary of Care ---
Author Name Unknown Organization [facility] Address [address] [facility] [place] [address] Phone [phone] Care Team Providers Care Osteopathic Resident Name Role Phone Ivy Meier MD Primary Care Provide r Reason for Visit * Reason Onset Date Comments Medication Refill 12/09/2022 Re: Omeprazole DR 20MG Capsule Encounter Details Date Type Department Care Team Description 12/09/2022 Refill [facility], [facility] [address] [place] [address] Radha Marks CRNP [address] [place] [facility] [place] [address] Allergies Active Allergy Reactions Severity Noted Date Comments Naproxen 01/06/2001 Rash localized to forearms and flushing Niacin 11/27/2000 Rash localized to forearms documented as of this encounter (statuses as of 12/09/2022) Medications Medication Sig Dispensed Refills Start Date [...] 09/26/2022 Active linaCLOtide 72 MCG Oral Capsule (Linzess)Indication [...] 11/17/2022 Active Dexamethasone 0.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/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 5 ml twice daily (swish and spit) as needed during flares of mouth ulcers 240 mL 0 11/17/2022 Active Omeprazole 20 MG Oral Capsule Delayed Release (PriLOSEC) TAKE ONE CAPSULE BY MOUTH EVERY DAY ONE hour BEFORE first meal of THE DAY 30 Capsule 5 12/09/2022 Active Omeprazole 20 MG Oral Capsule Delayed Release (PriLOSEC) TAKE ONE CAPSULE BY MOUTH EVERY DAY ONE hour BEFORE first meal of THE DAY 30 Capsule 5 06/03/2022 3 Discontinue d(Refill) documented as of this encounter (statuses as of 12/09/2022) Active Problems Problem Noted Date Chronic myeloproliferative [...] worse along with may be little cellulitis. [facility] nurse counseling case manager saw the patient yesterday and [...] for a possible early cellulitis. Her nurse counseling case manager will call in checkup with [...] as of this encounter (statuses as of 12/09/2022) Resolved Problems Problem Noted Date Resolved Date [...] as of this encounter (statuses as of 12/09/2022) Immunizations Name Administration Dates Next Due COVID-19 [...] encounter Miscellaneous Notes * Telephone Encounter - MARISSA Zavala - 12/09/2022 11:44 AM EDTSigned Prescriptions: Disp Refills Omeprazole 20 MG Oral Capsule Delayed Rele*30 Cap*5 Sig: TAKE ONE CAPSULE BY MOUTH EVERY DAY ONE hour BEFORE first meal of THE DAY Authorizing Provider: RADHA MARKS * Telephone Encounter - ELIZABETH Alvarado - 12/09/2022 11:33 AM EDT Please authorize with refills, as appropriate. Thank you, ELIZABETH Alvarado documented in this encounter Plan of Treatment Upcoming Encounters Date Type Specialty Care Team Description 12/26/[address] [facility], [facility] Mobile Home Draw [address] [place] [address] 12/30/2022 Nutrition Services [facility] Ashley Light RDN [address] [facility] [place] [address] 2023 Home Visit [facility] Raquel Lopez RN [address] [place] [address] 02/01/2023 Telemedicine Dermatology Ramona Nichols MD [address] [place], [place] [phone] 02/27/[address] [facility], [facility] Mobile Home Draw [address] [place] [address] Health Maintenance Due Date Last Done Comments [...] D LEVEL ONCE IN A LIFETIME-USE SMARTSET# [id number] Completed 02/15/2019, 08/16/2016, 02/11/2016, Additional history exists [...] Adult Child Health Care Joseph r of Cook Dessert [email or web address] Care Teams Osteopathic Resident Relationship Specialty Start Date End Date Ivy Meier MD [address] [place] [address] [place] [address] PCP - General Family Medicine 01/17/17 documented as of this encounter
--- OUTSIDE RECORDS SUMMARY | 2023-05-12 02:54 | External Medical Summary | Summary of Care ---
Author Name Unknown Organization [facility] Address [address] [facility] [address] Phone [phone] Care Team Providers Care Design Engineering Manager Name Role Phone Ivy Meier MD Primary Care Provide r Reason for Visit * Reason Onset Date Comments [facility]: Maintenance 12/23/2022 Encounter Details Date Type Department Care Team Description 12/23/2022 Scheduled Telephone [facility], [facility] [address] [facility] [place] [address] Coordinator, [facility] [address] [facility] [place] [address] Allergies Active Allergy Reactions Severity Noted Date Comments Naproxen 01/06/2001 Rash localized to forearms and flushing Niacin 11/27/2000 Rash localized to forearms documented as of this encounter (statuses as of 12/23/2022) Medications Medication Sig Dispensed Refills Start Date [...] as of this encounter (statuses as of 12/23/2022) Active Problems Problem Noted Date Chronic myeloproliferative [...] little cellulitis. [facility] nurse case management coordinator saw the patient yesterday and stated [...] possible early cellulitis. 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 CARDIOVAS SYS SYMP NEC 5 documented as of this encounter (statuses as of 12/23/2022) Immunizations Name Administration Dates Next Due COVID-19 [...] encounter Miscellaneous Notes * Telephone Encounter - Joanne Nathan RN - 12/23/2022 2:14 PM EDT [facility] Telephonic Nurse Follow-Up Call [facility] Subprogram: Primary Care at Home Follow Up Call Type: 24 hour follow up Acute issue requiring follow-up call: Other: edema BLE weeping clear fluid LLE ankle area Objective: 12/06/2022 11:43 AM 11/08/2022 2:12 PM 11/01/2022 11:28 AM 10/11/2022 3:14 PM 09/26/2022 12:03 PM VITALS ACROSS ENCOUNTERS BP 122/52 122/56 122/58 104/56 Pulse 80 80 82 73 Weight 42.5 kg 42.5 kg BMI 17.71 BMI 17.7 kg/m2 17.72 kg/m2 Lab Results Component Value Date BLOOD, URINE - [facility] Small (A) 11/08/2022 PROTEIN - [facility] 4.8 (L) 10/28/2022 PROTEIN, URINE - [facility] Trace (A) 11/08/2022 ESTERASE, URINE - [facility] Large (A) 11/08/2022 WBC AUTO - [facility] 18.54 (H) 11/30/2022 WBC, URINE - [facility] 50+ (A) 11/08/2022 NITRITE, URINE - [facility] Positive (A) 11/08/2022 QUANT URINE CULTURE GROWTH >100,000 colonies/mL Citrobacter koseri (A) 11/08/2022 Lab Results Component Value Date WBC AUTO - [facility] 18.54 (H) 11/30/2022 HGB - [facility] 9.0 (L) 11/30/2022 PLATELET AUTO - [facility] 97 (L) 11/30/2022 Lab Results Component Value Date SODIUM - [...] DME Needs: NO DME needs identified Medications: No medication or dose adjustments made during acute episode Subjective: Condition Status: Improvement in symptoms but not at baseline Current Concerns: Called and spoke with patient , she stated swelling of BLE "not as bad today", weeping of fluid around left ankle about the same but drainage is clear fluid, no signs of infection. She is trying to keep her legs elevated as much as possible and has compression stockings on. Disposition: Weekend call scheduled Future Visits Scheduled: Future Appointments-next 60 days Date/Time Provider Specialty Dept Phone 12/24/2022 10:30 AM Nurse [facility] [phone] 12/28/2022 10:10 AM [facility] Mobile Home Draw [facility] Laboratory Processing [phone] 12/30/2022 12:30 PM Ashley Light RDN [facility] [phone] 2023 1:00 PM Raquel Lopez RN [facility] [phone] 02/01/2023 9:45 AM Ramona Nichols MD Dermatology [phone] 02/27/2023 8:00 AM [facility] Mobile Home Draw [facility] Laboratory Processing [phone] Joanne Nathan RN Quarry Worker [facility] documented in this encounter Plan of Treatment Upcoming Encounters Date Type Specialty Care Team Description 12/24/2022 Scheduled Telephone [facility], Nurse [address] [address] 12/28/2022 Laboratory Laboratory Processing [facility], [facility] Mobile Home Draw [address] [place] [address] 12/30/2022 Nutrition Services [facility] Ashley Light RDN [address] [place] [address] 2023 Home Visit [facility] Raquel Lopez RN [address] [place] [phone] 02/01/2023 Telemedicine Dermatology Ramona Nichols MD [address] [place] [address] 02/27/2023 Laboratory Laboratory Processing [facility] Mobile Home Draw [address] [place] [address] Health Maintenance Due Date Last Done Comments [...] D LEVEL ONCE IN A LIFETIME-USE SMARTSET# [id number] Completed 02/15/2019, 08/16/2016, 02/11/2016, Additional history exists [...] Adult Child Health Care Joseph r of Foam Machine Operator [email or web address] Care Teams Design Engineering Manager Relationship Specialty Start Date End Date Ivy Meier MD [address] [place] [address] [place] [address] PCP - General Family Medicine 01/17/17 documented as of this encounter
--- OUTSIDE RECORDS SUMMARY | 2023-05-12 02:54 | External Medical Summary | Summary of Care ---
Author Name Unknown Organization [facility] Address [address] [facility] [place] [address] Phone [phone] Care Team Providers Care Project/Production Manager Imaging Name Role Phone Ivy Meier MD Primary Care Provide r Reason for Visit * Reason Onset Date Comments [facility]: Acute 12/22/2022 Encounter Details Date Type Department Care Team Description 12/22/2022 Telephone [facility], [facility] [address] [place] [address] [facility], Nurse [facility] [address] [place] [address] [facility]: Acute Allergies Active Allergy [...] worse along with may be little cellulitis. [facility] nurse case planner saw the patient [...] MANAGEMENT 12/19/2008 0 Overview: Evelyn Myers RN [phone] Edema 07/09/2007 02/04/2015 Postmenopausal bleeding 12/15/2005 02/05/20 [...] encounter Miscellaneous Notes * Telephone Encounter - Shaun Hdz MD [...] Ye RN - 12/22/2022 10:38 AM EDT [facility] commissioner conservation of resources Acute Call Date: 12/22/2022 Time: 10:39 AM Name: Milagro Mckoy : 1935 Caller: Milagro Relationship to Self Chief Complaint Patient presents with [facility]: Acute HPI: Milagro Mckoy is a 87 year old female that is calling [facility] Intake to report edema with [...] not on a diuretic. Patient wears tubi control tower radio operator to BLE, Elevates BLE, Keeps fluid/na sodium [...] Elevated BLE throughout day Continue with Tubi novelties sales representative socks Monitor for open areas/blister Treatment/Plan: (need to report) Level of call: Non-Acute Recommended treatment plan: Phone calls x 24/48 hrs Clinical advice given over the phone Routing to care team to review and make recommendations if warranted. Call back instructions provided to patient. Tahmina Ye. RN [facility] commissioner conservation of resources [phone] documented in this encounter Plan of Treatment Upcoming Encounters Date Type Specialty Care Team Description 12/23/2022 Scheduled Telephone [facility], [facility] [address] [facility] [place] [address] 12/24/2022 Scheduled Telephone [facility], Nurse [facility] [address] [facility] [place] [address] 12/28/2022 Laboratory Laboratory Processing [facility] Mobile Home Draw [address] [place] [address] 12/30/2022 Nutrition Services [facility] Ashley Light RDN [address] [facility] [place] [address] 2023 Home Visit [facility] Raquel Lopez RN [address] [place] [address] 02/01/2023 Telemedicine Dermatology Ramona Nichols MD [address] [place] [address] 02/27/2023 Laboratory Laboratory Processing [facility] Mobile Home Draw [address] [place] [address] Health Maintenance Due Date Last Done Comments [...] D LEVEL ONCE IN A LIFETIME-USE SMARTSET# [id number] Completed 02/15/2019, 08/16/2016, 02/11/2016, Additional history exists [...] Adult Child Health Care Joseph r of Folder Operator [email or web address] Care Teams Project/Production Manager Imaging Relationship Specialty Start Date End Date Ivy Meier MD [address] [place] [address] [place] [address] PCP - General Family Medicine 01/17/17 documented as of this encounter
[2023-05-12 03:56] LABS: Albumin Level 2.4 gm/dl (3.4-5.0); BUN Creatinine Ratio 35.8 (10-20); Calcium 8.3 mg/dl (8.6-10.3); Creatinine Clr Calc Pharmacy 52.1 ml/min; Est GFR (African American) 98.3 ml/min; Est GFR (Non-African American) 84.8 ml/min; Globulin 2.3 gm/dl (2.5-4.0); Magnesium 1.8 mg/dl (1.7-2.4); Potassium 4.3 mmol/L (3.5-5.1); Total Protein 4.7 gm/dl (6.0-8.3)
[2023-05-12 04:30] LABS: Hematocrit (blood only) 25.3 % (37.0-47.0); Hemoglobin 8.3 g/dl (12.0-16.0); Mean Corpuscular Hemoglobin 38.1 pg (25.0-34.0); Mean Corpuscular Hgb Conc 32.8 g/dL (32.0-36.0); Mean Corpuscular Volume 116.1 fL (80.0-100.0); Nucleated RBC # (auto) 0.12 K/uL (0.00-0.12); Nucleated RBC % (auto) 0.7 %; Platelet Count 50 K/uL (130-400); RDW Coefficient of Variation 25.7 % (11.5-14.5); RDW Standard Deviation 106.2 fL (36.4-46.3); Red Blood Count 2.18 M/uL (4.20-5.40); White Blood Count 16.55 K/ul (4.8-10.8)
[2023-05-12] MEDS: VANCOMYCIN HCL 750 MG in SODIUM CHLORIDE 0.9% 250 ML IV SCH ×2 (05:02→17:11)
[2023-05-12] MEDS: PANTOprazole 40 MG TAB PO SCH (05:59)
[2023-05-12] MEDS: LINACLOTIDE 145 MCG CAPSULE PO SCH (05:59)
[2023-05-12] MEDS: LEVOTHYROXINE SODIUM 100 MCG TABLET PO SCH (05:59)
--- OUTSIDE RECORDS SUMMARY | 2023-05-12 06:54 | External Medical Summary | Summary of Care ---
Author Name Unknown Organization [facility] Address [address] [place] [place] [place] [address] Phone [phone] Care Team Providers Care Exercise Equipment Specialist Name Role Phone Ivy Meier MD Primary Care Provide r Reason for Visit * Reason Onset Date Comments [facility]: Maintenance 05/11/2023 Encounter Details Date Type Department Care Team (Late st Contact Info) Description 05/11/2023 9:30 AM EST Scheduled Telephone [facility], [facility] 132 [facility] [place] [address] Coordinator, [facility] [address] [facility] [place] [address] Allergies Active Allergy Reactions Criticality Noted Date Comments Naproxen 01/06/2001 Rash localized to forearms and flushing Niacin 11/27/2000 Rash localized to forearms documented as of this encounter (statuses as of 05/11/2023) Medications Medication Sig Dispensed Refills Start Date [...] on this taper. 20 Tablet 0 05/09/2023 01/24/202 4 Active Doxycycline Hyclate 100 MG Oral CapsuleIndications:B ronchitis, complicated Take 1 Capsule by mouth in the morning and 1 Capsule before bedtime. Do all this for 7 days. Take for 7 days. 14 Capsule 0 05/09/2023 4 Active documented as of this encounter (statuses as of 05/11/2023) Active Problems Problem Noted Date Diagnosed Date Bronchitis, complicated 05/09/2023 Last Assessment & Plan: Concerned for reported worsening symptoms. Will treat with antibiotic and prednisone. She will hold daily pred until taper completed. TT to [facility] scheduling to fax CXR mobile order [...] 10lb wt loss since August Referral to [facility] care asst Primary myelofibrosis 11/02/2017 Last Assessment & Plan: Followed by oncology via telephone with monthly labs "there is nothing more they can do." 02/28/23--WBC 26.3, hgb 9.7, plt 98 Left carotid bruit 09/26/2016 Vitamin D deficiency 08/16/2016 Lymphedema 02/11/2016 Last Assessment & Plan: RLE--history cellulitis BLE duplex from 02/13--neg for DVT (done [facility]) Personal history of malignant neoplasm of [...] as of this encounter (statuses as of 05/11/2023) Resolved Problems Problem Noted Date Diagnosed Date [...] as of this encounter (statuses as of 05/11/2023) Immunizations Name Administration Dates Next Due COVID-19 mRNA, LNP-s, No Pre serve, 2-Dose Series (Pfizer) 06/19/2020,05/29/2020 Covid-19 Adenovirus, [place] 1 Vector, 2-dose Series, PF (AstraZeneca) 02/07/2022,04/01/2021 [...] Telephone Encounter - Rain Chandra RN - 05/11/2023 3:23 PM EST See prior note Faby Chandra RN, BSN [facility] Intake Triage Coordinator [phone] documented in this encounter Plan of Treatment Upcoming Encounters Date Type Department Care Team (Late st Contact Info) Description 05/12/2023 12:45 PM EST Scheduled Telephone [facility], [facility] 132 [facility] [place] [address] Coordinator, [facility] 132 [facility] [place] [address] 05/19/2023 8:30 AM EST Home Visit [facility], [facility] 132 [facility] [place] [address] Raquel Lopez RN 132 [facility] [place] [address] 05/26/2023 10:00 AM EST Scheduled Telephone [facility], [facility] [address] [facility] [place] [address] Ashley Light RDN [address] [place] [address] 08/30/2023 1:40 PM EDT Office Visit Family [address] [phone] Tomasa Covington MD [address] [place] [address] [place] [address] 10/30/2023 12:45 PM EDT Telemedicine Dermatology [facility] [place] [address] [facility] [place] [address] Doyle Osei MD [address] [facility] [place] [address] 03/04/2024 1:00 PM EST Office Visit Family [address] [phone] Ivy Meier MD [address] [place] [address] [place] [address] Health Maintenance Due Date Last Done Comments [...] D LEVEL ONCE IN A LIFETIME-USE SMARTSET# [id number] Completed 02/15/2019, 08/16/2016, 02/11/2016, Additional history exists [...] Adult Child Health Care Joseph r of Pig Handler [email or web address] Care Teams Exercise Equipment Specialist Relationship Specialty Start Date End Date Ivy Meier MD [address] [place] [address] [place] [phone] PCP - General Family Medicine 01/17/17 documented as of this encounter
--- OUTSIDE RECORDS SUMMARY | 2023-05-12 06:54 | External Medical Summary | Summary of Care ---
Author Name Unknown Organization [facility] Address [address] [place] [address] Phone [phone] Care Team Providers Care Ramp Flight Attendant Name Role Phone Ivy Meier MD Primary Care Provide r Reason for Visit * Reason Onset Date Comments [facility]: Maintenance 05/11/2023 Encounter Details Date Type Department Care Team (Late st Contact Info) Description 05/11/2023 Telephone [facility], [facility] [address] [place] [address] Radha Marks CRNP [address] [facility] [place] [address] [facility]: Maintenance Allergies Active Allergy [...] 1000 units CAPS Take by mouth. 0 Acti ve Cyanocobalamin (VITAMIN B 12) 100 MCG lozenge [...] daily pred until taper completed. TT to [facility] scheduling to fax CXR mobile order [...] 10lb wt loss since August Referral to [facility] top precipitator operator helper Primary myelofibrosis 11/02/2017 Last Assessment & Plan: Followed by oncology via telephone with monthly labs "there is nothing more they can do." 02/28/23--WBC 26.3, hgb 9.7, plt 98 Left carotid bruit 09/26/2016 Vitamin D deficiency 08/16/2016 Lymphedema 02/11/2016 Last Assessment & Plan: RLE--history cellulitis BLE duplex from 02/13--neg for DVT (done [facility]) Personal history of malignant neoplasm of skin [...] ACTIVE CASE MANAGEMENT 12/19/200802/08 Overview: Evelyn Myers, DIMPLE [phone] Edema 07/09/2007 02/04/2015 Postmenopausal bleeding [...] serve, 2-Dose Series (Pfizer) 06/19/2020,05/29/2020 Covid-19 Adenovirus, [place] 1 Vector, 2-dose Series, PF (AstraZeneca) 02/07/2022,04/01/2021 [...] Telephone Encounter - Radha Marks CRNP - 05/11/2023 1:59 PM EST Staff unavailable to see pt today.Called and spoke with dgt. Pt looks "bad" and coughing non stop despite 48 hours pred and antibiotic. Pt weak. Advised ED evaluation, needs labs, etc. Pt just dozed off, dgt does not think she will be agreeable to go. She will call [facility] number and let us know eitherway. If refuses visit, recommend visit tomorrow. * Telephone Encounter - Rain Chandra RN - 05/11/2023 1:27 PM EST Call to patient, spoke with Daughter Suzy Advised CXR did not show any acute findings " Patient is much worse" today. Almost non-stop coughing. Chest sounds congested, bringing up smallamounts of yellow mucus. No wheezing noted Temp 100.7 this morning, took Tylenol She is getting very tired and weak Is taking antbx and took Prednisone last 2 days, , in review of her meds, appears she missed the AMdoes of Prednisone this morning No Nebulizer, No Inhalers, No O2. Aware will send to care team and call her back with any orders/recommendations Faby Chandra RN, BSN [facility] Intake Triage Coordinator [phone] * Telephone Encounter - Radha Marks CRNP - 05/11/2023 12:11 PM EST Intake--please notify pt that no acute findings on chest xray. Thank you--please see how she is feeling today. documented in this encounter Plan of Treatment Upcoming Encounters Date Type Department Care Team (Late st Contact Info) Description 05/12/2023 12:45 PM EST Scheduled Telephone [facility] [address] [facility] [place] [address] Coordinator, [facility] [address] [place] [address] 05/19/2023 8:30 AM EST Home Visit [facility] [place], [address] [place] [address] Raquel Lopez, DIMPLE [address] [place] [address] 05/26/2023 10:00 AM EST Scheduled Telephone [facility], [facility] [address] [facility] [place] [address] Ashley Light RDN [address] [facility] [address] 08/30/2023 1:40 PM EDT Office Visit Family [address] [phone] Tomasa Covington MD [address] [place] [address] [place] [address] 10/30/2023 12:45 PM EDT Telemedicine Dermatology [facility] 200 [facility] [place] [address] Doyle Osei MD 200 [facility] [place] [address] 03/04/2024 1:00 PM EST Office Visit [address] [phone] Ivy Meier MD [address] [place] [address] [place] [address] Health Maintenance Due Date Last Done Comments [...] D LEVEL ONCE IN A LIFETIME-USE SMARTSET# [id number] Completed 02/15/2019, 08/16/2016, 02/11/2016, Additional history exists [...] Adult Child Health Care Joseph r of Alum Plant Operator [email or web address] Care Teams Ramp Flight Attendant Relationship Specialty Start Date End Date Ivy Meier MD [address] [place] [address] [place] [address] PCP - General Family Medicine 01/17/17 documented as of this encounter
--- OUTSIDE RECORDS SUMMARY | 2023-05-12 06:54 | External Medical Summary | Summary of Care ---
Author Name Unknown Organization [facility] Address [address] [place] [address] Phone [phone] Care Team Providers Care Laborer Tan House Name Role Phone Ivy Meier MD Primary Care Provide r Reason for Visit * Reason Onset Date Comments [facility]: Maintenance 05/11/2023 Encounter Details Date Type Department Care Team (Late st Contact Info) Description 05/11/2023 Telephone [facility], [facility] [address] [place] [address] Radha Marks CRNP [address] [facility] [place] [address] [facility]: Maintenance Allergies Active Allergy [...] daily pred until taper completed. TT to [facility] scheduling to fax CXR mobile order for [...] 10lb wt loss since August Referral to [facility] project safety manager Primary myelofibrosis 11/02/2017 Last Assessment & Plan: Followed by oncology via telephone with monthly labs "there is nothing more they can do." 02/28/23--WBC 26.3, hgb 9.7, plt 98 Left carotid bruit 09/26/2016 Vitamin D deficiency 08/16/2016 Lymphedema 02/11/2016 Last Assessment & Plan: RLE--history cellulitis BLE duplex from 02/13--neg for DVT (done [facility]) Personal history of malignant neoplasm of skin [...] serve, 2-Dose Series (Pfizer) 06/19/2020,05/29/2020 Covid-19 Adenovirus, [place] 1 Vector, 2-dose Series, PF (AstraZeneca) 02/07/2022,04/01/2021 [...] Marks CRNP - 05/11/2023 1:59 PM EST She should be seen. Please see if a nurse can see her. * Telephone Encounter - Rain Chandra RN [...] with any orders/recommendations Faby Chandra RN, BSN [facility] Intake Triage Coordinator [phone] * Telephone Encounter - Radha Marks CRNP - 05/11/2023 12:11 PM EST Intake--please notify pt that no acute findings on chest xray. Thank you--please see how she is feeling today. documented in this encounter Plan of Treatment Upcoming Encounters Date Type Department Care Team (Late st Contact Info) Description 05/12/2023 12:45 PM EST Scheduled Telephone [facility] [place], [facility] [address] [place] [address] Coordinator, [facility] [address] [place] [address] 05/19/2023 8:30 AM EST [facility] Visit [facility] [address] [place] [address] Raquel Lopez RN 132 [place] [address] 05/26/2023 10:00 AM EST Scheduled Telephone [facility], [facility] [address] [facility] [place] [address] Ashley Light, RDN [address] [facility] [place] [address] 08/30/2023 1:40 PM EDT Office Visit [address] [phone] Tomasa Covington MD [address] [place] [address] [place] [address] 10/30/2023 12:45 PM EDT Telemedicine Dermatology [facility] [address] [place] [address] Doyle Osei MD [address] [place] [address] 03/04/2024 1:00 PM EST Office Visit [address] [phone] Ivy Meier MD [address] [place] [address] [place] [address] Health Maintenance Due Date Last Done Comments [...] D LEVEL ONCE IN A LIFETIME-USE SMARTSET# [id number] Completed 02/15/2019, 08/16/2016, 02/11/2016, Additional history exists [...] Child Health Care Joseph r of Manager Cardiology [email or web address] Care Teams Laborer Tan House Relationship Specialty Start Date End Date Ivy Meier MD [address] [place] [address] [place] [address] PCP - General Family Medicine 01/17/17 documented as of this encounter
--- OUTSIDE RECORDS SUMMARY | 2023-05-12 06:54 | External Medical Summary | Summary of Care ---
Author Name Unknown Organization [facility] Address [address] [place] [address] Phone [phone] Care Team Providers Care Practice Advisor Name Role Phone Ivy Meier MD Primary Care Provide r Reason for Visit * Reason Onset Date Comments [facility]: Maintenance 05/11/2023 Encounter Details Date Type Department Care Team (Late st Contact Info) Description 05/11/2023 Telephone [facility], [facility] [address] [place] [address] Radha Marks CRNP [address] [facility] [place] [address] [facility]: Maintenance Allergies Active Allergy [...] daily pred until taper completed. TT to [facility] scheduling to fax CXR mobile order [...] 10lb wt loss since August Referral to [facility] director medicare sales Primary myelofibrosis 11/02/2017 Last Assessment & Plan: Followed by oncology via telephone with monthly labs "there is nothing more they can do." 02/28/23--WBC 26.3, hgb 9.7, plt 98 Left carotid bruit 09/26/2016 Vitamin D deficiency 08/16/2016 Lymphedema 02/11/2016 Last Assessment & Plan: RLE--history cellulitis BLE duplex from 02/13--neg for DVT (done [facility]) Personal history of malignant neoplasm of skin [...] serve, 2-Dose Series (Pfizer) 06/19/2020,05/29/2020 Covid-19 Adenovirus, [place] 1 Vector, 2-dose Series, PF (AstraZeneca) 02/07/2022,04/01/2021 [...] Encounter - Rain Chandra RN - 05/11/2023 2:31 PM EST Placed on follow up call for tomorrow, early AM, to determine if visit needed Faby Chandra RN, BSN [facility] Intake Triage Coordinator [phone] * Telephone Encounter - Radha Marks CRNP - 05/11/2023 1:59 PM EST Staff unavailable to see pt today.Called and spoke with dgt. Pt looks "bad" and coughing non stop despite 48 hours pred and antibiotic. Pt weak. Advised ED evaluation, needs labs, etc. Pt just dozed off, dgt does not think she will be agreeable to go. She will call [facility] number and let us know eitherway. If [...] with any orders/recommendations Faby Chandra RN, BSN [facility] Intake Triage Coordinator [phone] * Telephone Encounter - Radha Marks CRNP - 05/11/2023 12:11 PM EST Intake--please notify pt that no acute findings on chest xray. Thank you--please see how she is feeling today. documented in this encounter Plan of Treatment Upcoming Encounters Date Type Department Care Team (Late st Contact Info) Description 05/12/2023 12:45 PM EST Scheduled Telephone [facility], [facility] [address] [place] [address] Coordinator, [facility] [address] [place] [address] 05/19/2023 8:30 AM EST [facility] Visit [facility], [facility] [address] [place] [address] Raquel Lopez, DIMPLE [address] [place] [address] 05/26/2023 10:00 AM EST Scheduled Telephone [facility], [facility] [address] [facility] [address] Ashley Light RDN [address] [facility] [place] [address] 08/30/2023 1:40 PM EDT Office Visit Family [address] [phone] Tomasa Covington MD [address] [place] [address] [place] [address] 10/30/2023 12:45 PM EDT Telemedicine Dermatology [facility] [place] 200 [facility] [address] Doyle Osei MD 200 [facility] [place] [address] 03/04/2024 1:00 PM EST Office Visit Family Medicine [address] [phone] Ivy Meier MD [address] [place] [address] [place] [address] Health Maintenance Due Date Last Done Comments [...] D LEVEL ONCE IN A LIFETIME-USE SMARTSET# [id number] Completed 02/15/2019, 08/16/2016, 02/11/2016, Additional history exists [...] Adult Child Health Care Joseph r of Enrolled Agent [email or web address] Care Teams Practice Advisor Relationship Specialty Start Date End Date Ivy Meier MD [address] [place] [address] [place] [phone] PCP - General Family Medicine 01/17/17 documented as of this encounter
--- OUTSIDE RECORDS SUMMARY | 2023-05-12 06:54 | External Medical Summary | Summary of Care ---
Author Name Unknown Organization [facility] Address [address] [place] [address] Phone [phone] Care Team Providers Care Caramel Candy Maker Helper Name Role Phone Ivy Meier MD Primary Care Provide r Reason for Visit * Reason Onset Date Comments [facility]: Maintenance 05/11/2023 Encounter Details Date Type Department Care Team (Late st Contact Info) Description 05/11/2023 Telephone [facility], [facility] [address] [place] [address] Radha Marks CRNP [address] [facility] [place] [address] [facility]: Maintenance Allergies Active Allergy [...] daily pred until taper completed. TT to [facility] scheduling to fax CXR mobile order [...] 10lb wt loss since August Referral to [facility] clean up supervisor Primary myelofibrosis 11/02/2017 Last Assessment & Plan: Followed by oncology via telephone with monthly labs "there is nothing more they can do." 02/28/23--WBC 26.3, hgb 9.7, plt 98 Left carotid bruit 09/26/2016 Vitamin D deficiency 08/16/2016 Lymphedema 02/11/2016 Last Assessment & Plan: RLE--history cellulitis BLE duplex from 02/13--neg for DVT (done [facility]) Personal history of malignant neoplasm of skin [...] serve, 2-Dose Series (Pfizer) 06/19/2020,05/29/2020 Covid-19 Adenovirus, [place] 1 Vector, 2-dose Series, PF (AstraZeneca) 02/07/2022,04/01/2021 [...] with any orders/recommendations Faby Chandra RN, BSN [facility] Intake Triage Coordinator [phone] * Telephone Encounter - Radha Marks CRNP - 05/11/2023 12:11 PM EST Intake--please notify pt that no acute findings on chest xray. Thank you--please see how she is feeling today. documented in this encounter Plan of Treatment Upcoming Encounters Date Type Department Care Team (Late st Contact Info) Description 05/12/2023 12:45 PM EST Scheduled Telephone [facility] [place], [facility] [address] [place] [address] Coordinator, [facility] [address] [place] [address] 05/19/2023 8:30 AM EST [facility] 132 [place] [address] Raquel Lopez RN 132 [place] [address] 05/26/2023 10:00 AM EST Scheduled Telephone [facility], [facility] [address] [facility] [place] [address] Ashley Light, RDN [address] [facility] [place] [address] 08/30/2023 1:40 PM EDT Office Visit [address] [phone] Tomasa Covington MD [address] [place] [address] [place] [address] 10/30/2023 12:45 PM EDT Telemedicine Dermatology [facility] [address] [place] [address] Doyle Osei MD [address] [place] [address] 03/04/2024 1:00 PM EST Office Visit [address] [phone] Ivy Meier MD [address] [place] [address] [place] [address] Health Maintenance Due Date Last Done Comments [...] D LEVEL ONCE IN A LIFETIME-USE SMARTSET# [id number] Completed 02/15/2019, 08/16/2016, 02/11/2016, Additional history exists [...] Adult Child Health Care Joseph r of Rod And Tube Straightener [email or web address] Care Teams Caramel Candy Maker Helper Relationship Specialty Start Date End Date Ivy Meier MD [address] [place] [address] [place] [address] PCP - General Family Medicine 01/17/17 documented as of this encounter
--- OUTSIDE RECORDS SUMMARY | 2023-05-12 06:54 | External Medical Summary | Summary of Care ---
Author Name Unknown Organization [facility] Address [address] [place] [address] Phone [phone] Care Team Providers Care Enrolled Nurse Name Role Phone Ivy Meier MD Primary Care Provide r Reason for Visit * Reason Onset Date Comments [facility]: Maintenance 05/11/2023 Encounter Details Date Type Department Care Team (Late st Contact Info) Description 05/11/2023 Telephone [facility], [facility] [address] [place] [address] Radha Marks CRNP [address] [facility] [place] [address] [facility]: Maintenance Allergies Active Allergy [...] pred until taper completed. TT to [facility] scheduling to fax CXR mobile order [...] wt loss since August Referral to [facility] machine operator hop worker Primary myelofibrosis 11/02/2017 Last Assessment & Plan: Followed by oncology via telephone with monthly labs "there is nothing more they can do." 02/28/23--WBC 26.3, hgb 9.7, plt 98 Left carotid bruit 09/26/2016 Vitamin D deficiency 08/16/2016 Lymphedema 02/11/2016 Last Assessment & Plan: RLE--history cellulitis BLE duplex from 02/13--neg for DVT (done [facility]) Personal history of malignant neoplasm [...] serve, 2-Dose Series (Pfizer) 06/19/2020,05/29/2020 Covid-19 Adenovirus, [place] 1 Vector, 2-dose Series, PF (AstraZeneca) 02/07/2022,04/01/2021 [...] Notes * Telephone Encounter - Rain Chandra, DIMPLE - 05/11/2023 1:27 PM EST Call to [...] call her back with any orders/recommendations Faby Chnadra RN, BSN [facility] Intake Triage Coordinator [phone] * Telephone Encounter - Radha Marks CRNP - 05/11/2023 12:11 PM EST Intake--please notify pt that no acute findings on chest xray. Thank you--please see how she is feeling today. documented in this encounter Plan of Treatment Upcoming Encounters Date Type Department Care Team (Late st Contact Info) Description 05/12/2023 12:45 PM EST Scheduled Telephone [facility], [facility] [address] [place] [address] Coordinator, [facility] [address] [place] [address] 05/19/2023 8:30 AM EST [facility] Visit [facility], [facility] [address] [place] [address] Raquel Lopez RN [address] [place] [address] 05/26/2023 10:00 AM EST Scheduled Telephone [facility], [facility] [address] [facility] [place] [address] Ashley Light RDN [address] [facility] [place] [address] 08/30/2023 1:40 PM EDT Office Visit [address] [phone] Tomasa Covington MD [address] [place] [address] [place] [address] 10/30/2023 12:45 PM EDT Telemedicine Dermatology [facility] 200 [facility] [place] [address] Doyle Osei MD [address] [place] [address] 03/04/2024 1:00 PM EST Office Visit [address] [phone] Ivy Meier MD [address] [place] [address] [place] [address] Health Maintenance Due Date Last Done Comments [...] D LEVEL ONCE IN A LIFETIME-USE SMARTSET# [id number] Completed 02/15/2019, 08/16/2016, 02/11/2016, Additional history exists [...] Adult Child Health Care Joseph r of Screen Printing Machine Operator [email or web address] Care Teams Enrolled Nurse Relationship Specialty Start Date End Date Ivy Meier MD [address] [place] [address] [place] [address] PCP - General Family Medicine 01/17/17 documented as of this encounter
[2023-05-12] MEDS: FUROSEMIDE 20 MG TAB PO SCH ×2 (08:22→17:12)
[2023-05-12] MEDS: predniSONE 5 MG TAB PO SCH (08:22)
[2023-05-12] MEDS: FERROUS SULFATE 325 MG TAB PO SCH (08:22)
[2023-05-12] MEDS: CYANOCOBALAMIN (B-12) 500 MCG TABLET PO SCH (08:22)
[2023-05-12] MEDS: POTASSIUM CHLORIDE 10 MEQ TABCR PO SCH (08:22)
[2023-05-12] MEDS: guaiFENesin 600 MG TABCR PO SCH ×2 (08:22→20:00)
[2023-05-12] MEDS: DORZOLAMIDE/TIMOLOL 22.3/6.8MG/ML 10 ML BTL OP SCH ×2 (08:22→20:00)
[2023-05-12] MEDS ORDERED: CHOLECALCIFEROL 25 MCG (1000 UNITS) TAB PO SCH (09:00)
--- NOTE | 2023-05-12 09:06 | Hospitalist Progress Note ---
Date of Service May 12, 2023 Assessment & Plan (1) Cough: (2) RSV (respiratory syncytial virus infection): (3) Fever: Plan: Presented with cough and weakness On antibiotics recently for UTI and respiratory illness Had fever at home Has chronic leukocytosis, likely due chronic myeloproliferative disease Respiratory PCR is + for RSV Lactate is normal Procal is elevated 0.65 Patient did meet SIRS criteria with leukocytosis, tachycardia. 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 She has no pain or symptoms hindering her ADLs. At this point, we can continue with conservative treatment. She may work with physical therapy and Occupational Therapy as tolerated. Symptomatic relief with activity modification versus oral/IV analgesics. She should follow-up about 7 to 10 days post discharge for follow-up radiographs of the fracture. Conservative mgt PT/OT Vit D level 36.6- increase vit. D supplement History of chronic lymphedema BNP mildly elevated at 410 Reviewed TTE from 02/13 Continue lasix DVT ppx: SCD. Will hold pharm agent for now in view of petechiae/ecchymoses and low platelet count today. Low threshold to start once appropriate CODE STATUS: DNR Admission and Anticipated Discharge Date Admission Date: May 11, 2023 Subjective Pt seen in follow up of hypoxia, + RSV, compression vert. fx Currently laying in bed in NAD, on suppl. O2 No chest pain, shortness of breath, abd. pain, n/v + cough and sputum production Review of Systems Review of Systems: All systems reviewed & are unremarkable except as noted in Subjective Physical Exam Physical Exam: Constitutional: elderly F, thin, + chronically ill a ppearing; no acute distress, on supp l. O2 Eyes: PERRL, conjunctiva e normal, anicteri c sclerae ENMT: Hearing deficit. Respiratory: normal respiratory effort, + rhonchi Cardiovascular: Rate/Rhythm: regul ar rate and regula r rhythm S1-S2 Gastrointestinal ( Abdomen): normal bowel sound s, soft, nontender Musculoskeletal: mild Right leg ed saturnino (has chronic l ymphedema especial ly in the right le g) Left ankle bandar a Skin: Petechiae and ecc hymoses in extremi ties Neurologic: PERRL, EOMI, no fa ce palsy, no dysar thria, moves extre mities Psychiatric: A+Ox3, euthymic af fect Results & Data Results & Data Vital Signs (Past 12 Hours) Vital Signs Temp Pulse Pulse Resp BP Pulse Ox O2 Del Method 05/12/23 07:31 78 05/12/23 07:11 36.9 C 75 18 118/49 L 94 Nasal Cannula 05/12/23 06:00 85 12 137/60 92 Nasal Cannula 05/12/23 00:11 Nasal Cannula 05/12/23 00:11 71 18 142/57 H 98 Nasal Cannula 05/11/23 23:27 76 05/11/23 23:00 73 19 121/60 100 Nasal Cannula 05/11/23 22:55 36.9 C 74 16 117/74 100 Nasal Cannula O2 Flow Rate 05/12/23 07:31 05/12/23 07:11 3 05/12/23 06:00 3 05/12/23 00:11 3 05/12/23 00:11 3 05/11/23 23:27 05/11/23 23:00 3 05/11/23 22:55 3 Laboratory Results 05/12/23 05/12/23 05/11/23 Range/Units 03:19 00:53 19:40 WBC 16.55 H (4.8-10.8) K/ul RBC 2.18 L (4.20-5.40) M/uL Hgb 8.3 L (12.0-16.0) g/dl Hct 25.3 L (37.0-47.0) % MCV 116.1 H D (80.0-100.0) fL MCH 38.1 H (25.0-34.0) pg MCHC 32.8 (32.0-36.0) g/dL RDW Std Deviation 106.2 H (36.4-46.3) fL RDW Coeff of Yee 25.7 H (11.5-14.5) % Plt Count 50 L (130-400) K/uL Absolute Nucleated RBC 0.12 (0.00-0.12) K/uL Nucleated RBC % (auto) 0.7 % Neutrophils % (Manual) % Lymphocytes % (Manual) % Monocytes % (Manual) % Eosinophils % (Manual) % Basophils % (Manual) % Metamyelocytes % (Man) % Myelocytes % (Man) % Blast Cells % (Manual) % Neutrophils # (Manual) (1.40-6.50) K/uL Total Absolute Neuts (1.4-6.5) K/uL Lymphocytes # (Manual) (1.2-3.4) K/uL Total Abs Lymphocytes (1.2-3.4) K/uL Monocytes # (Manual) (0.11-0.59) K/uL Eosinophils # (Manual) (0-0.50) K/uL Basophils # (Manual) (0-0.2) K/uL Metamyelocytes # (Man) (0-0) K/uL Myelocytes # (Manual) (0-0) K/uL Blast Cells # (Man) (0-0) K/uL Blood Smear Review Toxic Granulation Platelet Estimate (Normal) Polychromasia Anisocytosis Macrocytosis Tear Drop Cells Stomatocytes Sodium 131 L (136-145) mmol/L Potassium 4.3 (3.5-5.1) mmol/L Chloride 99 (98-107) mmol/L Carbon Dioxide 29 (21-32) mmol/L Anion Gap 3 (3-11) BUN 19 (6-23) mg/dl Creatinine 0.53 L (0.6-1.2) mg/dl Est Cr Clr Drug Dosing 52.1 ml/min Est GFR ( Amer) 98.3 ml/min Est GFR (Non-Af Amer) 84.8 ml/min BUN/Creatinine Ratio 35.8 H (10-20) Glucose 104 H (70-99(Fasting)) mg/dl Lactate (0.4-2.0) mmol/L Calcium 8.3 L (8.6-10.3) mg/dl Phosphorus 2.8 (2.5-4.9) mg/dl Magnesium 1.8 (1.7-2.4) mg/dl Total Bilirubin 1.0 (0.2-1.0) mg/dl Direct Bilirubin (0-0.2) mg/dl AST 12 L (13-39) U/L ALT 10 (7-52) U/L Alkaline Phosphatase 60 (34-104) U/L Troponin I High Sens (0-14) pg/ml B-Natriuretic Peptide (0-100) pg/ml Total Protein 4.7 L (6.0-8.3) gm/dl Albumin 2.4 L (3.4-5.0) gm/dl Globulin 2.3 L (2.5-4.0) gm/dl Albumin/Globulin Ratio 1.0 (0.9-2) Lipase (11-82) U/L 25-OH Vitamin D Total 36.6 (30-100) ng/ml Procalcitonin 0.91 H (0-0.5) ng/ml Urine Color Urine Appearance (Clear) Urine pH (4.5-7.5) Ur Specific [place] (1.000-1.030) Urine Protein (Negative) Urine Glucose (UA) (Negative) Urine Ketones (Negative) Urine Blood (Negative) Urine Nitrite (Negative) Urine Bilirubin (Negative) Urine Urobilinogen (Negative) Ur Leukocyte Esterase (Negative) Urine WBC (Auto) (0-5) /hpf Urine RBC (Auto) (0-4) /hpf U Hyaline Cast (Auto) (0-5) /lpf U Epithel Cells (Auto) (0-5) /lpf Urine Bacteria (Auto) (Negative) Nasal Screen MRSA (PCR) Negative (Negative) Adenovirus (PCR) (NotDetected) B. pertussis DNA (PCR) (NotDetected) B.parapertussis DNA PCR (NotDetected) C. pneumoniae DNA (PCR) (NotDetected) Coronavirus OC43 (PCR) (NotDetected) Coronavirus HKU1 (PCR) (NotDetected) Coronavirus 229E (PCR) (NotDetected) SARS-CoV-2 (PCR) (NotDetected) Coronavirus NL63 (PCR) (NotDetected) Human Metapneumovir PCR (NotDetected) Influenza Type A (PCR) (NotDetected) Influenza Type B (PCR) (NotDetected) M. pneumoniae (PCR) (NotDetected) Parainfluenza 1 (PCR) (NotDetected) Parainfluenza 2 (PCR) (NotDetected) Parainfluenza 3 (PCR) (NotDetected) Parainfluenza 4 (PCR) (NotDetected) RSV (PCR) (NotDetected) Entero/Rhino (PCR) (NotDetected) 05/11/23 05/11/23 05/11/23 Range/Units 17:10 16:08 16:00 WBC (4.8-10.8) K/ul RBC (4.20-5.40) M/uL Hgb (12.0-16.0) g/dl Hct (37.0-47.0) % MCV (80.0-100.0) fL MCH (25.0-34.0) pg MCHC (32.0-36.0) g/dL RDW Std Deviation (36.4-46.3) fL RDW Coeff of Yee (11.5-14.5) % Plt Count (130-400) K/uL Absolute Nucleated RBC (0.00-0.12) K/uL Nucleated RBC % (auto) % Neutrophils % (Manual) % Lymphocytes % (Manual) % Monocytes % (Manual) % Eosinophils % (Manual) % Basophils % (Manual) % Metamyelocytes % (Man) % Myelocytes % (Man) % Blast Cells % (Manual) % Neutrophils # (Manual) (1.40-6.50) K/uL Total Absolute Neuts (1.4-6.5) K/uL Lymphocytes # (Manual) (1.2-3.4) K/uL Total Abs Lymphocytes (1.2-3.4) K/uL Monocytes # (Manual) (0.11-0.59) K/uL Eosinophils # (Manual) (0-0.50) K/uL Basophils # (Manual) (0-0.2) K/uL Metamyelocytes # (Man) (0-0) K/uL Myelocytes # (Manual) (0-0) K/uL Blast Cells # (Man) (0-0) K/uL Blood Smear Review Toxic Granulation Platelet Estimate (Normal) Polychromasia Anisocytosis Macrocytosis Tear Drop Cells Stomatocytes Sodium (136-145) mmol/L Potassium (3.5-5.1) mmol/L Chloride (98-107) mmol/L Carbon Dioxide (21-32) mmol/L Anion Gap (3-11) BUN (6-23) mg/dl Creatinine (0.6-1.2) mg/dl Est Cr Clr Drug Dosing ml/min Est GFR ( Amer) ml/min Est GFR (Non-Af Amer) ml/min BUN/Creatinine Ratio (10-20) Glucose (70-99(Fasting)) mg/dl Lactate 1.6 (0.4-2.0) mmol/L Calcium (8.6-10.3) mg/dl Phosphorus (2.5-4.9) mg/dl Magnesium (1.7-2.4) mg/dl Total Bilirubin (0.2-1.0) mg/dl Direct Bilirubin (0-0.2) mg/dl AST (13-39) U/L ALT (7-52) U/L Alkaline Phosphatase (34-104) U/L Troponin I High Sens (0-14) pg/ml B-Natriuretic Peptide (0-100) pg/ml Total Protein (6.0-8.3) gm/dl Albumin (3.4-5.0) gm/dl Globulin (2.5-4.0) gm/dl Albumin/Globulin Ratio (0.9-2) Lipase (11-82) U/L 25-OH Vitamin D Total (30-100) ng/ml Procalcitonin (0-0.5) ng/ml Urine Color Dark Yellow Urine Appearance Clear (Clear) Urine pH 6.5 (4.5-7.5) Ur Specific [place] 1.015 (1.000-1.030) Urine Protein Negative (Negative) Urine Glucose (UA) Negative (Negative) Urine Ketones Negative (Negative) Urine Blood Negative (Negative) Urine Nitrite Negative (Negative) Urine Bilirubin Negative (Negative) Urine Urobilinogen Negative (Negative) Ur Leukocyte Esterase Trace H (Negative) Urine WBC (Auto) 1-5 (0-5) /hpf Urine RBC (Auto) 0-4 (0-4) /hpf U Hyaline Cast (Auto) 1-5 (0-5) /lpf U Epithel Cells (Auto) 10-20 H (0-5) /lpf Urine Bacteria (Auto) Negative (Negative) Nasal Screen MRSA (PCR) Negative (Negative) Adenovirus (PCR) (NotDetected) B. pertussis DNA (PCR) (NotDetected) B.parapertussis DNA PCR (NotDetected) C. pneumoniae DNA (PCR) (NotDetected) Coronavirus OC43 (PCR) (NotDetected) Coronavirus HKU1 (PCR) (NotDetected) Coronavirus 229E (PCR) (NotDetected) SARS-CoV-2 (PCR) (NotDetected) Coronavirus NL63 (PCR) (NotDetected) Human Metapneumovir PCR (NotDetected) Influenza Type A (PCR) (NotDetected) Influenza Type B (PCR) (NotDetected) M. pneumoniae (PCR) (NotDetected) Parainfluenza 1 (PCR) (NotDetected) Parainfluenza 2 (PCR) (NotDetected) Parainfluenza 3 (PCR) (NotDetected) Parainfluenza 4 (PCR) (NotDetected) RSV (PCR) (NotDetected) Entero/Rhino (PCR) (NotDetected) 05/11/23 Range/Units 15:50 WBC 24.41 H (4.8-10.8) K/ul RBC 2.57 L (4.20-5.40) M/uL Hgb 9.7 L (12.0-16.0) g/dl Hct 28.4 L (37.0-47.0) % MCV 110.5 H (80.0-100.0) fL MCH 37.7 H (25.0-34.0) pg MCHC 34.2 (32.0-36.0) g/dL RDW Std Deviation 102.6 H (36.4-46.3) fL RDW Coeff of Yee 25.5 H (11.5-14.5) % Plt Count 89 L (130-400) K/uL Absolute Nucleated RBC 0.41 H (0.00-0.12) K/uL Nucleated RBC % (auto) 1.7 % Neutrophils % (Manual) 73 % Lymphocytes % (Manual) 6 % Monocytes % (Manual) 12 % Eosinophils % (Manual) 1 % Basophils % (Manual) 1 % Metamyelocytes % (Man) 2 % Myelocytes % (Man) 3 % Blast Cells % (Manual) 2 % Neutrophils # (Manual) 17.82 H (1.40-6.50) K/uL Total Absolute Neuts 17.82 H (1.4-6.5) K/uL Lymphocytes # (Manual) 1.46 (1.2-3.4) K/uL Total Abs Lymphocytes 1.46 (1.2-3.4) K/uL Monocytes # (Manual) 2.93 H (0.11-0.59) K/uL Eosinophils # (Manual) 0.24 (0-0.50) K/uL Basophils # (Manual) 0.24 H (0-0.2) K/uL Metamyelocytes # (Man) 0.49 H (0-0) K/uL Myelocytes # (Manual) 0.73 H (0-0) K/uL Blast Cells # (Man) 0.49 H (0-0) K/uL Blood Smear Review Toxic Granulation 1+ Platelet Estimate Decreased L (Normal) Polychromasia 1+ Anisocytosis Present Macrocytosis Present Tear Drop Cells 2+ Stomatocytes 2+ Sodium 130 L (136-145) mmol/L Potassium 4.0 (3.5-5.1) mmol/L Chloride 97 L (98-107) mmol/L Carbon Dioxide 28 (21-32) mmol/L Anion Gap 5 (3-11) BUN 18 (6-23) mg/dl Creatinine 0.47 L (0.6-1.2) mg/dl Est Cr Clr Drug Dosing 58.8 ml/min Est GFR ( Amer) 102.2 ml/min Est GFR (Non-Af Amer) 88.2 ml/min BUN/Creatinine Ratio 38.3 H (10-20) Glucose 88 (70-99(Fasting)) mg/dl Lactate (0.4-2.0) mmol/L Calcium 9.1 (8.6-10.3) mg/dl Phosphorus 2.3 L (2.5-4.9) mg/dl Magnesium 1.7 (1.7-2.4) mg/dl Total Bilirubin 1.1 H (0.2-1.0) mg/dl Direct Bilirubin 0.2 (0-0.2) mg/dl AST 14 (13-39) U/L ALT 9 (7-52) U/L Alkaline Phosphatase 76 (34-104) U/L Troponin I High Sens 11.2 (0-14) pg/ml B-Natriuretic Peptide 410 H (0-100) pg/ml Total Protein 5.4 L (6.0-8.3) gm/dl Albumin 2.9 L (3.4-5.0) gm/dl Globulin (2.5-4.0) gm/dl Albumin/Globulin Ratio (0.9-2) Lipase 9 L (11-82) U/L 25-OH Vitamin D Total (30-100) ng/ml Procalcitonin 0.65 H (0-0.5) ng/ml Urine Color Urine Appearance (Clear) Urine pH (4.5-7.5) Ur Specific [place] (1.000-1.030) Urine Protein (Negative) Urine Glucose (UA) (Negative) Urine Ketones (Negative) Urine Blood (Negative) Urine Nitrite (Negative) Urine Bilirubin (Negative) Urine Urobilinogen (Negative) Ur Leukocyte Esterase (Negative) Urine WBC (Auto) (0-5) /hpf Urine RBC (Auto) (0-4) /hpf U Hyaline Cast (Auto) (0-5) /lpf U Epithel Cells (Auto) (0-5) /lpf Urine Bacteria (Auto) (Negative) Nasal Screen MRSA (PCR) (Negative) Adenovirus (PCR) Not Detected (NotDetected) B. pertussis DNA (PCR) Not Detected (NotDetected) B.parapertussis DNA PCR Not Detected (NotDetected) C. pneumoniae DNA (PCR) Not Detected (NotDetected) Coronavirus OC43 (PCR) Not Detected (NotDetected) Coronavirus HKU1 (PCR) Not Detected (NotDetected) Coronavirus 229E (PCR) Not Detected (NotDetected) SARS-CoV-2 (PCR) Not Detected (NotDetected) Coronavirus NL63 (PCR) Not Detected (NotDetected) Human Metapneumovir PCR Not Detected (NotDetected) Influenza Type A (PCR) Not Detected (NotDetected) Influenza Type B (PCR) Not Detected (NotDetected) M. pneumoniae (PCR) Not Detected (NotDetected) Parainfluenza 1 (PCR) Not Detected (NotDetected) Parainfluenza 2 (PCR) Not Detected (NotDetected) Parainfluenza 3 (PCR) Not Detected (NotDetected) Parainfluenza 4 (PCR) Not Detected (NotDetected) RSV (PCR) DETECTED A* (NotDetected) Entero/Rhino (PCR) Not Detected (NotDetected) Medications Administered Current Inpatient Medications Acetaminophen (Acetaminophen 325 Mg Tab) 650 mg PO Q4H PRN PRN Reason: Pain or Fever Stop: 06/10/23 18:57 Acetaminophen (Acetaminophen 325 Mg Tab) 650 mg PO Q6H PRN PRN Reason: Pain Stop: 06/10/23 23:23 Al Hydrox/Mg Hydrox/Simethicone (Aluminum/Magnesium Susp 30 Ml Udc) 15 ml PO Q4H PRN PRN Reason: Dyspepsia Stop: 06/10/23 18:57 Cyanocobalamin (Cyanocobalamin (B-12) 500 Mcg Tablet) 500 mcg PO DAILY [facility] Stop: 06/11/23 08:59 Last Admin: 05/12/23 08:22 Dose: 500 mcg Dexamethasone (Dexamethasone 2 Mg/20 Ml Udp) 0.5 mg PO BID PRN PRN Reason: mouth ulcers Stop: 06/10/23 23:23 Dorzolamide/Timolol (Dorzolamide/Timolol 22.3/6.8mg/Ml 10 Ml Btl) 1 drops OP BID [facility] Stop: 06/11/23 08:59 Last Admin: 05/12/23 08:22 Dose: 1 drops Ferrous Sulfate (Ferrous Sulfate 325 Mg Tab) 325 mg PO QAM [facility] Stop: 06/11/23 08:59 Last Admin: 05/12/23 08:22 Dose: 325 mg Furosemide (Furosemide 20 Mg Tab) 20 mg PO BID17 [facility] Stop: 06/10/23 23:23 Last Admin: 05/12/23 08:22 Dose: 20 mg Guaifenesin (Guaifenesin 600 Mg Tabcr) 1,200 mg PO Q12 [facility] Stop: 06/10/23 20:59 Last Admin: 05/12/23 08:22 Dose: 1,200 mg Vancomycin HCl 750 mg/ Sodium (Chloride) 265 mls @ 200 mls/hr IV Q12H [facility]; Protocol Stop: 05/19/23 05:59 Last Infusion: 05/12/23 06:22 Dose: Infused Piperacillin Sod/Tazobactam (Sod 4.5 gm/ Dextrose) 100 mls @ 25 mls/hr IV Q8H [facility]; Protocol Stop: 05/19/23 00:59 Last Admin: 05/12/23 08:20 Dose: 25 mls/hr Levothyroxine Sodium (Levothyroxine Sodium 100 Mcg Tablet) [facility] Stop: 06/11/23 06:29 Last Admin: 05/12/23 05:59 Dose: 100 mcg Linaclotide (Linaclotide 145 Mcg Capsule) [facility] Stop: 06/11/23 06:29 Last Admin: 05/12/23 05:59 Dose: 145 mcg Magnesium Hydroxide (Magnesium Hydroxide Susp 30 Ml Udc) 30 ml PO Q12H PRN PRN Reason: Constipation Stop: 06/10/23 18:57 Miscellaneous Information (Vancomycin Consult Active) 1 each N/A UD PRN PRN Reason: Consult Stop: 06/10/23 19:00 Ondansetron HCl (Ondansetron Inj 2 Mg/Ml 2 Ml Vial) 4 mg IV Q6H PRN PRN Reason: Nausea Stop: 06/10/23 18:57 Pantoprazole Sodium (Pantoprazole 40 Mg Tab) [facility] Stop: 06/11/23 06:29 Last Admin: 05/12/23 05:59 Dose: 40 mg Polyethylene Glycol (Polyethylene (Miralax) 17 Gm Pack) 17 gm PO DAILY PRN PRN Reason: Constipation Stop: 06/10/23 18:57 Polyethylene Glycol (Polyethylene (Miralax) 17 Gm Pack) 17 gm PO DAILY PRN PRN Reason: Constipation Stop: 06/10/23 23:23 Potassium Chloride (Potassium Chloride 10 Meq Tabcr) 10 meq PO DAILY [facility] Stop: 06/11/23 08:59 Last Admin: 05/12/23 08:22 Dose: 10 meq Prednisone (Pred[facility] 5 Mg Tab) [facility] Stop: 06/11/23 08:59 Last Admin: 05/12/23 08:22 Dose: 5 mg Vitamin D (Cholecalciferol 1,000 Units 25 Mcg Tab) 1,000 units PO DAILY [facility] Stop: 06/11/23 08:59 Last Admin: 05/12/23 08:22 Dose: 1,000 units (3) Fever Fever type: unspecified Qualified Code(s): R50.9 - Fever, unspecified (5) Leukocytosis Leukocytosis type: unspecified Qualified Code(s): D72.829 - Elevated white blood cell count, unspecified
--- NOTE | 2023-05-12 13:22 | Pharmacy Report ---
Pharmacy PK ABX Note - Date of Service May 12, 2023 - Assessment and Plan Assessment 88 year old F receiving vancomycin/zosyn for treatment of pneumonia. Pertinent microbiologic data includes: RSV + on biofire. MRSA nasal swab negative. Blood cultures pending. Recent outpatient doxycycline/cefdinir use. Leukocytosis downtrending. Procal 0.65-->0.91. . Plan Vancomycin * Loading dose: 1000 mg IV x 1 * Maintenance dose: 750 mg IV every 12 hours * Regimen is predicted to achieve target AUC/ASHLEY of 400-600 mg/L.hr (through first 6 doses) * Random level ordered for 05/13 with AM labs Pharmacy will continue to follow and will adjust dose/frequency as necessary. Thank you. Pharmacy has transitioned to AUC monitoring for vancomycin. AUC/ASHLEY is the preferred PK/PD target and is associated with decreased risk of nephrotoxicity compared to traditional trough targets.
--- NOTE | 2023-05-12 13:37 | Orthopedic Consultation ---
Date of Service May 12, 2023 Assessment & Plan (1) Compression fracture of T3 vertebra: Patient presentation and plan formulated with Dr. Joseph. I had a long and detailed discussion today with the patient about her thoracic spine pathology in great detail with ample amount of time for the patient to ask any questions or state any concerns. All questions and concerns were answered to the patient's satisfaction. At this point, she is asymptomatic with her T3 compression fracture. She has no pain or symptoms hindering her ADLs. At this point, we can continue with conservative treatment. She may work with physical therapy and Occupational Therapy as tolerated. Symptomatic relief with activity m odification versus oral/IV analgesics. DVT prophylaxis and medical management per primary. She should follow-up about 7 to 10 days post discharge for follow- up radiographs of the fracture. She can follow-up with an orthopedic spine surgeon of her choosing. She may follow-up with [facility]/Dr. Joseph for her spinal fracture. Please reach out by [place] text or reach out to [facility] orth[facility]ics if this patient situation is to change. History of Present Illness Reason for Consultation: . Subacute T3 compression fracture Requesting Physician: . Attending Physician: Carlos Alberto Vergara MD . Milagro is an 88-year-old female who is currently admitted for respiratory issues which include RSV and SIRS subsequently was found to have a T3 compression fracture which is new compared to her previous chest CT back in December.. She notes that she has no issues whatsoever with her back. The only time that she thinks that she may have injured it was around 3 weeks ago when she fell. She never had any back pain or upper extremity symptoms. She denies any back pain at this present time or any other spinal issues. She denies any other concerns. Allergies Allergy/AdvReac Type Severity Reaction Status Date / Time naproxen Allergy Mild RASH Verified 05/11/23 17:19 niacin Allergy Mild RASH Verified 05/11/23 17:19 Home Medications Medication Instructions Recorded Confirmed Type dorzolamide 2 %-timolol 0.5 % (PF) 1 drp OPB BID 05/24/19 05/11/23 History eye drops mycophenolate mofetil 500 mg tablet 500 mg PO DAILY 10/29/20 05/11/23 History omeprazole 20 mg capsule,delayed 20 mg PO DAILYBB 10/29/20 05/11/23 History release prednisone 10 mg tablet 5 mg PO QAM 01/24/21 05/11/23 History ferrous sulfate 325 mg (65 mg 325 mg PO QAM 06/22/21 05/11/23 History iron) tablet (FeroSul) acetaminophen 500 mg tablet 1,000 mg PO Q6H PRN Pain 09/19/22 05/11/23 History (Tylenol Extra Strength) cholecalciferol (vitamin D3) 25 25 mcg PO DAILY 09/19/22 05/11/23 History mcg (1,000 unit) tablet (Vitamin D3) levothyroxine 100 mcg tablet 100 mcg PO DAILYBB 12/25/22 05/11/23 History dexamethasone 0.5 mg/5 mL oral 0.5 mg PO BID PRN mouth ulcers 01/28/23 05/11/23 History elixir linaclotide 145 mcg capsule 145 mcg PO DAILYBB 01/28/23 05/11/23 History (Linzess) furosemide 20 mg tablet 20 mg PO BID #60 tabs 02/11/23 05/11/23 Rx polyethylene glycol 3350 17 gram 17 g PO DAILY PRN Constipation #30 02/11/23 05/11/23 Rx oral powder packet (Miralax) ea potassium chloride 10 mEq 10 meq PO DAILY #30 caps 02/11/23 05/11/23 Rx capsule,extended release cyanocobalamin (vitamin B-12) 500 500 mcg PO DAILY 05/11/23 05/11/23 History mcg tablet (Vitamin B-12) doxycycline hyclate 100 mg capsule 100 mg PO BID 05/11/23 05/11/23 History prednisone 10 mg tablet 0 mg PO DAILY 05/11/23 05/11/23 History Past Med/Surg History Medical History Thrombocytopenia 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 Hyperparathyroidism Glaucoma Hiatal hernia Kidney stones Hyperlipidemia Diet controlled Surgical History Hx of bilateral cataract extraction Hx of cystoscopy S/P debridement OF STOMA SITE History of colostomy reversal History of cholecystectomy History of bowel resection FOR PERFORATION WITH COLOSTOMY Previous back surgery LOWER BACK-NO METAL IMPLANTED History of colonoscopy History of lithotripsy S/P thyroidectomy FOR GOITER History of hysterectomy TOTAL Family History Father CHF (congestive heart failure) Mother Hypertension Social History Smoking Status: Never smoker Tobacco Type: Cigarettes Second Hand Exposure: No; Do You Dip or Chew Tobacco: No; Tobacco Cessation Education Requested by Patient: No Hx Alcohol Use: No Hx Substance Use: No Preferred Language: Vincentian Communication Ability: Effective Antique Refinisher Required: No Beliefs That Will Affect Care: None marital status: / Current Living Situation: Other Current Living Situation Comment: [address] How many Children do You have: 2 Other Information That Helps Us Care for You: No Feels Safe at Home: Yes Safety Concerns: Feels Safe At This Time Assistive Devices: Hospital Bed, Raised Toilet Seat and Walker Review of Systems All systems reviewed & are unremarkable except as noted in HPI & below. Physical Exam . Physical examination of the spine shows visual kyphosis with no tenderness over the spinal processes or paravertebral musculature. No discomfort brought on with twisting from [id number]. Range of motion and strength of the upper extremities are intact and equal bilaterally. Normal sensation. Neurovascular intact. Results & Data Results & Data Laboratory Results . Diagnostic Findings Chest CTA 05/11/23 17:07 CHEST CTA for PULMONARY ARTERIES CT DOSE: 708.56 mGy.cm HISTORY: hypoxia, fever, sob, r/o PE TECHNIQUE: Multiaxial CT images of the chest were performed following the intravenous administration of contrast to evaluate the pulmonary arteries. 3D/Maximal intensity projection images were also obtained. Sagittal and coronal reformations were also reviewed. A dose lowering technique was utilized adhering to the principles of ALARA. COMPARISON STUDY: Chest CTA 12/25/2022. FINDINGS: There is a subacute mild superior endplate compression fracture at T3 demonstrating up to 10% loss of height. This is new compared the prior study. No acute fractures identified. No pneumothorax. Near complete mucoid opacification of the right lower lobe bronchi. Small patchy airspace opacities within the base of the right lower lobe. This could represent an aspiration pneumonitis. The abdominal structures will be reported separately. There is a trace left pleural effusion. The heart remains mildly enlarged. There is a large hiatus hernia again noted. No mediastinal or hilar lymphadenopathy. Calcified plaque within the normal caliber thoracic aorta. No evidence for an aortic dissection. No filling defects within the pulmonary arteries to suggest a pulmonary embolus. Coronary artery calcifications are again noted. Stable 3 mm nodule within the left lung apex. IMPRESSION: 1. No evidence for a pulmonary embolus. 2. Near-complete mucoid opacification of the right lower lobe bronchi with small patchy airspace opacities at the right lung base. This may represent an aspiration pneumonitis. 3. Trace left pleural effusion. 4. A subacute mild superior endplate compression fracture at T3. This is new compared the prior study. No associated retropulsion. 5. Large hiatus hernia again noted. Patient seen and examined, in talking with her she does report having a fall in the bathroom roughly a month ago, and potentially had some pain in the upper back. Currently she notes she is not having any pain in the thoracic spine, she only notes pain in her lumbosacral spine when changing positions from time to time and sitting. She does not describe any lower extremity symptoms, no findings noted on physical examination. Impression: T3 compression fracture noted on CT scan indeterminate as to time of origination but nontender at this time. Plan: Recommend mobilization as tolerated no bracing necessary and only follow- up if the patient develops continued symptoms. ACT 112: Negative or not required by law. Electronically signed by: Te Ham M.D. 05/11/2023 5:47 PM PG Care Time/CCT Total # of Minutes Spent Total Time Spent with Patient: Total time spent is greater than 50% in coordination of care (as documented) at patient's floor/unit and/or counseling patient: Coding Level of Care Code 49344 IN/OBS CONSULT LVL 3,45M Diagnoses Compression fracture of T3 vertebra, initial encounter S22.030A Encounter type: initial encounter Additional Codes Fx Spine - Vertebral body: Vertebral Body ([id number]) (1) Compression fracture of T3 vertebra Encounter type: initial encounter Qualified Code(s): S22.030A - Wedge compression fracture of third thoracic vertebra, initial encounter for closed fracture
[2023-05-13] MEDS: PIPERACILLIN/TAZOBACTAM 4.5 GM in DEXTROSE 5% MINI-B 100 ML IV SCH ×3 (02:23→17:13)
[2023-05-13] MEDS ORDERED: VANCOMYCIN LEVEL ONE (04:44)
[2023-05-13] MEDS: LEVOTHYROXINE SODIUM 100 MCG TABLET PO SCH (06:17)
[2023-05-13] MEDS: PANTOprazole 40 MG TAB PO SCH (06:17)
[2023-05-13] MEDS: LINACLOTIDE 145 MCG CAPSULE PO SCH (06:17)
[2023-05-13 06:24] LABS: Hematocrit (blood only) 25.1 % (37.0-47.0); Hemoglobin 8.2 g/dl (12.0-16.0); Mean Corpuscular Hemoglobin 37.3 pg (25.0-34.0); Mean Corpuscular Hgb Conc 32.7 g/dL (32.0-36.0); Mean Corpuscular Volume 114.1 fL (80.0-100.0); Nucleated RBC % (auto) 1.2 %; Platelet Count 59 K/uL (130-400); RDW Coefficient of Variation 25.8 % (11.5-14.5); RDW Standard Deviation 106.9 fL (36.4-46.3); White Blood Count 16.03 K/ul (4.8-10.8)
[2023-05-13 06:35] LABS: BUN Creatinine Ratio 28.1 (10-20); Calcium 8.6 mg/dl (8.6-10.3); Est GFR (African American) 92.3 ml/min; Est GFR (Non-African American) 79.7 ml/min; Magnesium 1.8 mg/dl (1.7-2.4); Phosphorus 3.2 mg/dl (2.5-4.9); Potassium 3.5 mmol/L (3.5-5.1)
[2023-05-13] MEDS: VANCOMYCIN HCL 750 MG in SODIUM CHLORIDE 0.9% 250 ML IV SCH (06:41)
--- NOTE | 2023-05-13 06:47 | Electrocardiogram Report ---
Test Reason : Blood Pressure : / mmHG Vent. Rate : 114 BPM Atrial Rate : 114 BPM P-R Int : 158 ms QRS Dur : 070 ms QT Int : 304 ms P-R-T Axes : 053 -28 059 degrees QTc Int : 419 ms Sinus tachycardia Cannot rule out Anterior infarct (cited on or before 22-JUN-2021) Abnormal ECG When compared with ECG of 10-FEB-2023 10:06, Premature ventricular complexes are no longer Present Premature atrial complexes are no longer Present Confirmed by Jethro Suarez ([id number]) on 05/13/2023 6:47:14 AM Referred By: REFERRED SELF Confirmed By:Jethro Suarez
--- NOTE | 2023-05-13 08:07 | Hospitalist Progress Note ---
Date of Service May 13, 2023 Assessment & Plan (1) Cough: (2) RSV (respiratory syncytial virus infection): (3) Fever: Plan: Presented with cough and weakness On antibiotics recently for UTI and respiratory illness Had fever at home Has chronic leukocytosis, likely due chronic myeloproliferative disease Respiratory PCR is + for RSV Lactate is normal Procal is elevated 0.65 Patient did meet SIRS criteria with leukocytosis, tachycardia. Hence possible Sepsis RSV infection XR chest did not show any acute abnormalities However CT PE noted right lower lobe bronchi opacification with small patchy airspace opacification in right lung base Hence Pneumonia Broad spectrum antibiotics: IV vanc and zosyn initially. MRSA swab negat. 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 She has no pain or symptoms hindering her ADLs. At this point, we can continue with conservative treatment. She may work with physical therapy and Occupational Therapy as tolerated. Symptomatic relief with activity modification versus oral/IV analgesics. She should follow-up about 7 to 10 days post discharge for follow-up radiographs of the fracture. Conservative mgt PT/OT Vit D level 36.6- increased vit. D supplement History of chronic lymphedema BNP mildly elevated at 410 Reviewed TTE from 02/13 Continue lasix DVT ppx: SCD. Will hold pharm agent for now in view of petechiae/ecchymoses and low platelet count today. Low threshold to start once appropriate CODE STATUS: DNR Admission and Anticipated Discharge Date Admission Date: May 11, 2023 Subjective Pt seen in follow up of hypoxia, + RSV, compression vert. fx Currently sitting up in bed in NAD, on suppl. O2 2L No chest pain, shortness of breath, abd. pain, n/v + cough and sputum production sputum cultx pending. mrsa swab negat - stopped vanco Review of Systems Review of Systems: All systems reviewed & are unremarkable except as noted in Subjective Physical Exam Physical Exam: Constitutional: elderly F, thin/ c achectic, + chroni jodie ill appearin g; no acute distre ss, on suppl. O2 Eyes: PERRL, conjunctiva e normal, anicteri c sclerae ENMT: Hearing deficit. Respiratory: normal respiratory effort, + rhonchi Cardiovascular: Rate/Rhythm: regul ar rate and regula r rhythm S1-S2 Gastrointestinal ( Abdomen): normal bowel sound s, soft, nontender Musculoskeletal: mild Right leg ed saturnino (has chronic l ymphedema especial ly in the right le g) Left ankle bandar a Skin: Petechiae and ecc hymoses in extremi ties Neurologic: PERRL, EOMI, no fa ce palsy, no dysar thria, moves extre mities Psychiatric: A+Ox3, euthymic af fect Results & Data Results & Data Vital Signs (Past 12 Hours) Vital Signs Temp Pulse Pulse Resp BP Pulse Ox O2 Del Method 05/13/23 07:08 79 05/13/23 04:00 36.6 C 86 18 126/64 97 Nasal Cannula 05/12/23 23:38 36.7 C 84 18 118/61 95 Room Air 05/12/23 23:32 88 05/12/23 23:22 Nasal Cannula O2 Flow Rate 05/13/23 07:08 05/13/23 04:00 2 05/12/23 23:38 05/12/23 23:32 05/12/23 23:22 2 Laboratory Results 05/13/23 Range/Units 05:40 WBC 16.03 H (4.8-10.8) K/ul RBC 2.20 L (4.20-5.40) M/uL Hgb 8.2 L (12.0-16.0) g/dl Hct 25.1 L (37.0-47.0) % MCV 114.1 H (80.0-100.0) fL MCH 37.3 H (25.0-34.0) pg MCHC 32.7 (32.0-36.0) g/dL RDW Std Deviation 106.9 H (36.4-46.3) fL RDW Coeff of Yee 25.8 H (11.5-14.5) % Plt Count 59 L (130-400) K/uL Absolute Nucleated RBC 0.20 H (0.00-0.12) K/uL Nucleated RBC % (auto) 1.2 % Sodium 134 L (136-145) mmol/L Potassium 3.5 (3.5-5.1) mmol/L Chloride 100 (98-107) mmol/L Carbon Dioxide 30 (21-32) mmol/L Anion Gap 4 (3-11) BUN 18 (6-23) mg/dl Creatinine 0.64 (0.6-1.2) mg/dl Est Cr Clr Drug Dosing 43.0 ml/min Est GFR ( Amer) 92.3 ml/min Est GFR (Non-Af Amer) 79.7 ml/min BUN/Creatinine Ratio 28.1 H (10-20) Glucose 85 (70-99(Fasting)) mg/dl Calcium 8.6 (8.6-10.3) mg/dl Phosphorus 3.2 (2.5-4.9) mg/dl Magnesium 1.8 (1.7-2.4) mg/dl Random Vancomycin 14.7 (10-20) mcg/ml Medications Administered Current Inpatient Medications Acetaminophen (Acetaminophen 325 Mg Tab) 650 mg PO Q4H PRN PRN Reason: Pain or Fever Stop: 06/10/23 18:57 Al Hydrox/Mg Hydrox/Simethicone (Aluminum/Magnesium Susp 30 Ml Udc) 15 ml PO Q4H PRN PRN Reason: Dyspepsia Stop: 06/10/23 18:57 Cyanocobalamin (Cyanocobalamin (B-12) 500 Mcg Tablet) 500 mcg PO DAILY [facility] Stop: 06/11/23 08:59 Last Admin: 05/12/23 08:22 Dose: 500 mcg Dexamethasone (Dexamethasone 2 Mg/20 Ml Udp) 0.5 mg PO BID PRN PRN Reason: mouth ulcers Stop: 06/10/23 23:23 Dorzolamide/Timolol (Dorzolamide/Timolol 22.3/6.8mg/Ml 10 Ml Btl) 1 drops OP BID ALEXANDRE Stop: 06/11/23 08:59 Last Admin: 05/12/23 20:00 Dose: 1 drops Ferrous Sulfate (Ferrous Sulfate 325 Mg Tab) 325 mg PO QAM [facility] Stop: 06/11/23 08:59 Last Admin: 05/12/23 08:22 Dose: 325 mg Furosemide (Furosemide 20 Mg Tab) 20 mg PO [id number] [facility] Stop: 06/10/23 23:23 Last Admin: 05/12/23 17:12 Dose: 20 mg Guaifenesin (Guaifenesin 600 Mg Tabcr) 1,200 mg PO Q12 [facility] Stop: 06/10/23 20:59 Last Admin: 05/12/23 20:00 Dose: 1,200 mg Vancomycin HCl 750 mg/ Sodium (Chloride) 265 mls @ 200 mls/hr IV Q12H [facility]; Protocol Stop: 05/13/23 08:00 Last Admin: 05/13/23 06:41 Dose: 200 mls/hr Piperacillin Sod/Tazobactam (Sod 4.5 gm/ Dextrose) 100 mls @ 25 mls/hr IV Q8H [facility]; Protocol Stop: 05/19/23 00:59 Last Infusion: 05/13/23 06:18 Dose: Infused Vancomycin HCl 500 mg/ Sodium (Chloride) 260 mls @ 200 mls/hr IV Q12H [facility]; Protocol Stop: 05/18/23 19:59 Levothyroxine Sodium (Levothyroxine Sodium 100 Mcg Tablet) [facility] Stop: 06/11/23 06:29 Last Admin: 05/13/23 06:17 Dose: 100 mcg Linaclotide (Linaclotide 145 Mcg Capsule) [facility] Stop: 06/11/23 06:29 Last Admin: 05/13/23 06:17 Dose: 145 mcg Magnesium Hydroxide (Magnesium Hydroxide Susp 30 Ml Udc) 30 ml PO Q12H PRN PRN Reason: Constipation Stop: 06/10/23 18:57 Miscellaneous Information (Vancomycin Consult Active) 1 each N/A UD PRN PRN Reason: Consult Stop: 06/10/23 19:00 Ondansetron HCl (Ondansetron Inj 2 Mg/Ml 2 Ml Vial) 4 mg IV Q6H PRN PRN Reason: Nausea Stop: 06/10/23 18:57 Pantoprazole Sodium (Pantoprazole 40 Mg Tab) [facility] Stop: 06/11/23 06:29 Last Admin: 05/13/23 06:17 Dose: 40 mg Polyethylene Glycol (Polyethylene (Miralax) 17 Gm Pack) 17 gm PO DAILY PRN PRN Reason: Constipation Stop: 06/10/23 18:57 Potassium Chloride (Potassium Chloride 10 Meq Tabcr) 10 meq PO DAILY [facility] Stop: 06/11/23 08:59 Last Admin: 05/12/23 08:22 Dose: 10 meq Prednisone (Prednisone 5 Mg Tab) 5 mg PO QAM [facility] Stop: 06/11/23 08:59 Last Admin: 05/12/23 08:22 Dose: 5 mg Vitamin D (Cholecalciferol 5,000 Units 125 Mcg Tab) 5,000 [facility] [place] [facility] [place] Stop: 06/12/23 08:59 (3) Fever Fever type: unspecified Qualified Code(s): R50.9 - Fever, unspecified (5) Leukocytosis Leukocytosis type: unspecified Qualified Code(s): D72.829 - Elevated white blood cell count, unspecified
[2023-05-13] MEDS: FUROSEMIDE 20 MG TAB PO SCH ×2 (09:09→17:13)
[2023-05-13] MEDS: DORZOLAMIDE/TIMOLOL 22.3/6.8MG/ML 10 ML BTL OP SCH ×2 (09:09→20:31)
[2023-05-13] MEDS: predniSONE 5 MG TAB PO SCH (09:09)
[2023-05-13] MEDS: CYANOCOBALAMIN (B-12) 500 MCG TABLET PO SCH (09:09)
[2023-05-13] MEDS: FERROUS SULFATE 325 MG TAB PO SCH (09:09)
[2023-05-13] MEDS: CHOLECALCIFEROL 125 MCG (5,000 UNITS) TAB PO SCH (09:09)
[2023-05-13] MEDS: guaiFENesin 600 MG TABCR PO SCH ×2 (09:09→20:32)
[2023-05-13] MEDS: POTASSIUM CHLORIDE 10 MEQ TABCR PO SCH (09:12)
[2023-05-13] MEDS: ADVANCED PROBIOTIC 1250 MG CAPSULE PO SCH (18:12)
[2023-05-13] MEDS ORDERED: VANCOMYCIN HCL 500 MG in SODIUM CHLORIDE 0.9% 250 ML IV SCH (20:00)
[2023-05-14] MEDS: PIPERACILLIN/TAZOBACTAM 4.5 GM in DEXTROSE 5% MINI-B 100 ML IV SCH ×3 (00:33→16:25)
[2023-05-14] MEDS: LINACLOTIDE 145 MCG CAPSULE PO SCH (05:30)
[2023-05-14] MEDS: PANTOprazole 40 MG TAB PO SCH (05:30)
[2023-05-14] MEDS: LEVOTHYROXINE SODIUM 100 MCG TABLET PO SCH (05:31)
[2023-05-14 06:35] LABS: BUN Creatinine Ratio 27.3 (10-20); Calcium 8.8 mg/dl (8.6-10.3); Creatinine Clr Calc Pharmacy 46.5 ml/min; Est GFR (African American) 97.1 ml/min; Est GFR (Non-African American) 83.7 ml/min; Magnesium 1.8 mg/dl (1.7-2.4); Phosphorus 2.7 mg/dl (2.5-4.9)
[2023-05-14 06:46] LABS: Hematocrit (blood only) 27.3 % (37.0-47.0); Hemoglobin 8.8 g/dl (12.0-16.0); Mean Corpuscular Hemoglobin 37.6 pg (25.0-34.0); Mean Corpuscular Hgb Conc 32.2 g/dL (32.0-36.0); Mean Corpuscular Volume 116.7 fL (80.0-100.0); Nucleated RBC # (auto) 0.17 K/uL (0.00-0.12); Nucleated RBC % (auto) 1.2 %; Platelet Count 60 K/uL (130-400); RDW Coefficient of Variation 25.4 % (11.5-14.5); RDW Standard Deviation 108.6 fL (36.4-46.3); Red Blood Count 2.34 M/uL (4.20-5.40); White Blood Count 14.68 K/ul (4.8-10.8)
[2023-05-14] MEDS: CHOLECALCIFEROL 125 MCG (5,000 UNITS) TAB PO SCH (08:34)
[2023-05-14] MEDS: predniSONE 5 MG TAB PO SCH (08:34)
[2023-05-14] MEDS: guaiFENesin 600 MG TABCR PO SCH ×2 (08:34→21:50)
[2023-05-14] MEDS: ADVANCED PROBIOTIC 1250 MG CAPSULE PO SCH (08:34)
[2023-05-14] MEDS: FUROSEMIDE 20 MG TAB PO SCH ×2 (08:34→16:25)
[2023-05-14] MEDS: CYANOCOBALAMIN (B-12) 500 MCG TABLET PO SCH (08:34)
[2023-05-14] MEDS: DORZOLAMIDE/TIMOLOL 22.3/6.8MG/ML 10 ML BTL OP SCH ×2 (08:34→21:50)
[2023-05-14] MEDS: FERROUS SULFATE 325 MG TAB PO SCH (08:34)
[2023-05-14] MEDS: POTASSIUM CHLORIDE 10 MEQ TABCR PO SCH (08:35)
[2023-05-14] MEDS ORDERED: POTASSIUM CHLORIDE 20 MEQ/15 ML UDC PO STA (08:58)
--- NOTE | 2023-05-14 08:59 | Hospitalist Progress Note ---
Date of Service May 14, 2023 Assessment & Plan (1) Cough: (2) RSV (respiratory syncytial virus infection): (3) Fever: Plan: Presented with cough and weakness On antibiotics recently for UTI and respiratory illness Had fever at home Has chronic leukocytosis, likely due chronic myeloproliferative disease Respiratory PCR is + for RSV Lactate is normal Procal is elevated 0.65 Patient did meet SIRS criteria with leukocytosis, tachycardia. Hence possible Sepsis RSV infection XR chest did not show any acute abnormalities However CT PE noted right lower lobe bronchi opacification with small patchy airspace opacification in right lung base Hence Pneumonia Broad spectrum antibiotics: IV vanc and zosyn initially. MRSA swab negat. - stopping vanco blood cultures - negat. 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 She has no pain or symptoms hindering her ADLs. At this point, we can continue with conservative treatment. She may work with physical therapy and Occupational Therapy as tolerated. Symptomatic relief with activity modification versus oral/IV analgesics. She should follow-up about 7 to 10 days post discharge for follow-up radiographs of the fracture. Conservative mgt PT/OT Vit D level 36.6- increased vit. D supplement History of chronic lymphedema BNP mildly elevated at 410 Reviewed TTE from 02/13 Continue lasix DVT ppx: SCD. Will hold pharm agent for now in view of petechiae/ecchymoses and low platelet count today. Low threshold to start once appropriate CODE STATUS: DNR Admission and Anticipated Discharge Date Admission Date: May 11, 2023 Subjective Pt seen in follow up of hypoxia, + RSV, compression vert. fx Currently sitting up in bed in NAD, on suppl. O2 2L - saturating high 90s, will decrease to 1L and cont. to closely monitor. RN at the bedside and aware. Trying to wean off oxygen. No chest pain, shortness of breath, abd. pain, n/v + cough and sputum production sputum cultx pending. mrsa swab negat - vanco was stopped Review of Systems Review of Systems: All systems reviewed & are unremarkable except as noted in Subjective Physical Exam Physical Exam: Constitutional: elderly F, thin/ c achectic, + chroni jodie ill appearin g; no acute distre ss, on suppl. O2 Eyes: PERRL, conjunctiva e normal, anicteri c sclerae ENMT: Hearing deficit. Respiratory: normal respiratory effort, + rhonchi Cardiovascular: Rate/Rhythm: regul ar rate and regula r rhythm S1-S2 Gastrointestinal ( Abdomen): normal bowel sound s, soft, nontender Musculoskeletal: mild Right leg ed saturnino (has chronic l ymphedema especial ly in the right le g) Left ankle bandar a Skin: Petechiae and ecc hymoses in extremi ties Neurologic: PERRL, EOMI, no fa ce palsy, no dysar thria, moves extre mities Psychiatric: A+Ox3, euthymic af fect Results & Data Results & Data Vital Signs (Past 12 Hours) Vital Signs Temp Pulse Pulse Resp BP Pulse Ox O2 Del Method 05/14/23 08:10 Nasal Cannula 05/14/23 07:59 36.4 C L 73 17 133/64 100 Nasal Cannula 05/14/23 07:05 76 05/14/23 04:10 36.2 C L 70 18 124/62 98 Nasal Cannula 05/13/23 23:46 36.4 C L 75 16 133/56 L 97 Nasal Cannula 05/13/23 22:50 67 05/13/23 21:46 Nasal Cannula O2 Flow Rate 05/14/23 08:10 2 05/14/23 07:59 2 05/14/23 07:05 05/14/23 04:10 2 05/13/23 23:46 2 05/13/23 22:50 05/13/23 21:46 2 Laboratory Results 05/14/23 Range/Units 05:49 WBC 14.68 H (4.8-10.8) K/ul RBC 2.34 L (4.20-5.40) M/uL Hgb 8.8 L (12.0-16.0) g/dl Hct 27.3 L (37.0-47.0) % MCV 116.7 H (80.0-100.0) fL MCH 37.6 H (25.0-34.0) pg MCHC 32.2 (32.0-36.0) g/dL RDW Std Deviation 108.6 H (36.4-46.3) fL RDW Coeff of Yee 25.4 H (11.5-14.5) % Plt Count 60 L (130-400) K/uL Absolute Nucleated RBC 0.17 H (0.00-0.12) K/uL Nucleated RBC % (auto) 1.2 % Sodium 135 L (136-145) mmol/L Potassium 3.0 L (3.5-5.1) mmol/L Chloride 98 (98-107) mmol/L Carbon Dioxide 33 H (21-32) mmol/L Anion Gap 4 (3-11) BUN 15 (6-23) mg/dl Creatinine 0.55 L (0.6-1.2) mg/dl Est Cr Clr Drug Dosing 46.5 ml/min Est GFR ( Amer) 97.1 ml/min Est GFR (Non-Af Amer) 83.7 ml/min BUN/Creatinine Ratio 27.3 H (10-20) Glucose 86 (70-99(Fasting)) mg/dl Calcium 8.8 (8.6-10.3) mg/dl Phosphorus 2.7 (2.5-4.9) mg/dl Magnesium 1.8 (1.7-2.4) mg/dl Medications Administered Current Inpatient Medications Acetaminophen (Acetaminophen 325 Mg Tab) 650 mg PO Q4H PRN PRN Reason: Pain or Fever Stop: 06/10/23 18:57 Al Hydrox/Mg Hydrox/Simethicone (Aluminum/Magnesium Susp 30 Ml Udc) 15 ml PO Q4H PRN PRN Reason: Dyspepsia Stop: 06/10/23 18:57 Cyanocobalamin (Cyanocobalamin (B-12) 500 Mcg Tablet) 500 mcg PO DAILY [facility] Stop: 06/11/23 08:59 Last Admin: 05/14/23 08:34 Dose: 500 mcg Dexamethasone (Dexamethasone 2 Mg/20 Ml Udp) 0.5 mg PO BID PRN PRN Reason: mouth ulcers Stop: 06/10/23 23:23 Dorzolamide/Timolol (Dorzolamide/Timolol 22.3/6.8mg/Ml 10 Ml Btl) 1 drops OP BID [facility] Stop: 06/11/23 08:59 Last Admin: 05/14/23 08:34 Dose: 1 drops Ferrous Sulfate (Ferrous Sulfate 325 Mg Tab) 325 mg PO QAM [facility] Stop: 06/11/23 08:59 Last Admin: 05/14/23 08:34 Dose: 325 mg Furosemide (Furosemide 20 Mg Tab) 20 mg PO BID17 [facility] Stop: 06/10/23 23:23 Last Admin: 05/14/23 08:34 Dose: 20 mg Guaifenesin (Guaifenesin 600 Mg Tabcr) 1,200 mg PO Q12 [facility] Stop: 06/10/23 20:59 Last Admin: 05/14/23 08:34 Dose: 1,200 mg Piperacillin Sod/Tazobactam (Sod 4.5 gm/ Dextrose) 100 mls @ 25 mls/hr IV Q8H [facility]; Protocol Stop: 05/19/23 00:59 Last Admin: 05/14/23 08:34 Dose: 25 mls/hr Lactobacillus Acidophilus (Advanced Probiotic 1250 Mg Capsule) 2 cap PO DAILY [facility] Stop: 06/12/23 17:29 Last Admin: 05/14/23 08:34 Dose: 2 cap Levothyroxine Sodium (Levothyroxine Sodium 100 Mcg Tablet) [facility] Stop: 06/11/23 06:29 Last Admin: 05/14/23 05:31 Dose: 100 mcg Linaclotide (Linaclotide 145 Mcg Capsule) 145 mcg PO DAILYBB [facility] Stop: 06/11/23 06:29 Last Admin: 05/14/23 05:30 Dose: 145 mcg Magnesium Hydroxide (Magnesium Hydroxide Susp 30 Ml Udc) 30 ml PO Q12H PRN PRN Reason: Constipation Stop: 06/10/23 18:57 Ondansetron HCl (Ondansetron Inj 2 Mg/Ml 2 Ml Vial) 4 mg IV Q6H PRN PRN Reason: Nausea Stop: 06/10/23 18:57 Pantoprazole Sodium (Pantoprazole 40 Mg Tab) 40 mg PO DAILYBB [facility] Stop: 06/11/23 06:29 Last Admin: 05/14/23 05:30 Dose: 40 mg Polyethylene Glycol (Polyethylene (Miralax) 17 Gm Pack) 17 gm PO DAILY PRN PRN Reason: Constipation Stop: 06/10/23 18:57 Potassium Chloride (Potassium Chloride 10 Meq Tabcr) 10 meq PO DAILY [facility] Stop: 06/11/23 08:59 Last Admin: 05/14/23 08:35 Dose: 10 meq Potassium Chloride (Potassium Chloride 20 Meq/15 Ml Udc) 40 meq PO NOW STA Stop: 05/14/23 08:59 Prednisone (Prednisone 5 Mg Tab) 5 mg PO QAM [facility] Stop: 06/11/23 08:59 Last Admin: 05/14/23 08:34 Dose: 5 mg Vitamin D (Cholecalciferol 5,000 Units 125 Mcg Tab) 5,000 units PO QAM [facility] Stop: 06/12/23 08:59 Last Admin: 05/14/23 08:34 Dose: 5,000 units (3) Fever Fever type: unspecified Qualified Code(s): R50.9 - Fever, unspecified (5) Leukocytosis Leukocytosis type: unspecified Qualified Code(s): D72.829 - Elevated white blood cell count, unspecified
[2023-05-15] MEDS: PIPERACILLIN/TAZOBACTAM 4.5 GM in DEXTROSE 5% MINI-B 100 ML IV SCH ×3 (01:33→17:13)
[2023-05-15] MEDS: LEVOTHYROXINE SODIUM 100 MCG TABLET PO SCH (05:20)
[2023-05-15] MEDS: PANTOprazole 40 MG TAB PO SCH (05:20)
[2023-05-15] MEDS: LINACLOTIDE 145 MCG CAPSULE PO SCH (05:20)
[2023-05-15 07:46] LABS: Hematocrit (blood only) 27.4 % (37.0-47.0); Hemoglobin 9.3 g/dl (12.0-16.0); Mean Corpuscular Hemoglobin 38.1 pg (25.0-34.0); Mean Corpuscular Hgb Conc 33.9 g/dL (32.0-36.0); Mean Corpuscular Volume 112.3 fL (80.0-100.0); Mean Platelet Volume 11.5 fL (9.4-12.4); Nucleated RBC % (auto) 1.2 %; Platelet Count 64 K/uL (130-400); RDW Coefficient of Variation 25.2 % (11.5-14.5); RDW Standard Deviation 101.4 fL (36.4-46.3); Red Blood Count 2.44 M/uL (4.20-5.40); White Blood Count 16.48 K/ul (4.8-10.8)
[2023-05-15 08:02] LABS: BUN Creatinine Ratio 25.5 (10-20); Calcium 8.9 mg/dl (8.6-10.3); Creatinine Clr Calc Pharmacy 49.2 ml/min; Est GFR (African American) 99.5 ml/min; Est GFR (Non-African American) 85.9 ml/min; Magnesium 1.7 mg/dl (1.7-2.4); Phosphorus 2.3 mg/dl (2.5-4.9)
--- NOTE | 2023-05-15 08:19 | Hospitalist Progress Note ---
Date of Service May 15, 2023 Assessment & Plan (1) Cough: (2) RSV (respiratory syncytial virus infection): (3) Fever: Plan: Presented with cough and weakness On antibiotics recently for UTI and respiratory illness Had fever at home Has chronic leukocytosis, likely due chronic myeloproliferative disease Respiratory PCR is + for RSV Lactate is normal Procal is elevated 0.65 Patient did meet SIRS criteria with leukocytosis, tachycardia. Hence possible Sepsis RSV infection XR chest did not show any acute abnormalities However CT PE noted right lower lobe bronchi opacification with small patchy airspace opacification in right lung base Hence Pneumonia Broad spectrum antibiotics: IV vanc and zosyn initially. MRSA swab negat. - stopping vanco blood cultures - negat. 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 She has no pain or symptoms hindering her ADLs. At this point, we can continue with conservative treatment. She may work with physical therapy and Occupational Therapy as tolerated. Symptomatic relief with activity modification versus oral/IV analgesics. She should follow-up about 7 to 10 days post discharge for follow-up radiographs of the fracture. Conservative mgt PT/OT Vit D level 36.6- increased vit. D supplement History of chronic lymphedema BNP mildly elevated at 410 Reviewed TTE from 02/13 Continue lasix DVT ppx: SCD. Will hold pharm agent for now in view of petechiae/ecchymoses and low platelet count. Low threshold to start once appropriate CODE STATUS: DNR Admission and Anticipated Discharge Date Admission Date: May 11, 2023 Subjective Pt seen in follow up of hypoxia, + RSV, compression vert. fx Currently sitting up in bed in NAD, on suppl. O2 2L - saturating high 95%. PT and RN at the bedside. Discussed using flutter valve. Trying to wean off oxygen. No chest pain, shortness of breath, abd. pain, n/v + cough and sputum production sputum cultx unrevealing. Review of Systems Review of Systems: All systems reviewed & are unremarkable except as noted in Subjective Physical Exam Physical Exam: Constitutional: elderly F, thin/ c achectic, + chroni jodie ill appearin g; no acute distre ss, on suppl. O2 Eyes: PERRL, conjunctiva e normal, anicteri c sclerae ENMT: Hearing deficit. Respiratory: normal respiratory effort, + rhonchi Cardiovascular: Rate/Rhythm: regul ar rate and regula r rhythm S1-S2 Gastrointestinal ( Abdomen): normal bowel sound s, soft, nontender Musculoskeletal: mild Right leg ed saturnino (has chronic l ymphedema especial ly in the right le g) Left ankle bandar a Skin: Petechiae and ecc hymoses in extremi ties Neurologic: PERRL, EOMI, no fa ce palsy, no dysar thria, moves extre mities Psychiatric: A+Ox3, euthymic af fect Results & Data Results & Data Vital Signs (Past 12 Hours) Vital Signs Temp Pulse Pulse Resp BP BP Pulse Ox 05/15/23 07:27 36.7 C 83 14 124/52 L 97 05/15/23 07:14 80 05/15/23 03:00 36.4 C L 82 18 122/58 L 96 05/14/23 23:29 85 05/14/23 23:09 36.7 C 99 H 18 138/72 93 O2 Del Method O2 Flow Rate 05/15/23 07:27 Nasal Cannula 2 05/15/23 07:14 05/15/23 03:00 Nasal Cannula 2 05/14/23 23:29 05/14/23 23:09 Nasal Cannula 2 Laboratory Results 05/15/23 Range/Units 07:07 WBC 16.48 H (4.8-10.8) K/ul RBC 2.44 L (4.20-5.40) M/uL Hgb 9.3 L (12.0-16.0) g/dl Hct 27.4 L (37.0-47.0) % MCV 112.3 H (80.0-100.0) fL MCH 38.1 H (25.0-34.0) pg MCHC 33.9 (32.0-36.0) g/dL RDW Std Deviation 101.4 H (36.4-46.3) fL RDW Coeff of Yee 25.2 H (11.5-14.5) % Plt Count 64 L (130-400) K/uL MPV 11.5 (9.4-12.4) fL Absolute Nucleated RBC 0.20 H (0.00-0.12) K/uL Nucleated RBC % (auto) 1.2 % Sodium 135 L (136-145) mmol/L Potassium 3.0 L (3.5-5.1) mmol/L Chloride 98 (98-107) mmol/L Carbon Dioxide 34 H (21-32) mmol/L Anion Gap 3 (3-11) BUN 13 (6-23) mg/dl Creatinine 0.51 L (0.6-1.2) mg/dl Est Cr Clr Drug Dosing 49.2 ml/min Est GFR ( Amer) 99.5 ml/min Est GFR (Non-Af Amer) 85.9 ml/min BUN/Creatinine Ratio 25.5 H (10-20) Glucose 90 (70-99(Fasting)) mg/dl Calcium 8.9 (8.6-10.3) mg/dl Phosphorus 2.3 L (2.5-4.9) mg/dl Magnesium 1.7 (1.7-2.4) mg/dl Medications Administered Current Inpatient Medications Acetaminophen (Acetaminophen 325 Mg Tab) 650 mg PO Q4H PRN PRN Reason: Pain or Fever Stop: 06/10/23 18:57 Al Hydrox/Mg Hydrox/Simethicone (Aluminum/Magnesium Susp 30 Ml Udc) 15 ml PO Q4H PRN PRN Reason: Dyspepsia Stop: 06/10/23 18:57 Cyanocobalamin (Cyanocobalamin (B-12) 500 Mcg Tablet) 500 mcg PO DAILY [facility] Stop: 06/11/23 08:59 Last Admin: 05/14/23 08:34 Dose: 500 mcg Dexamethasone (Dexamethasone 2 Mg/20 Ml Udp) 0.5 mg PO BID PRN PRN Reason: mouth ulcers Stop: 06/10/23 23:23 Dorzolamide/Timolol (Dorzolamide/Timolol 22.3/6.8mg/Ml 10 Ml Btl) 1 drops OP BID [facility] Stop: 06/11/23 08:59 Last Admin: 05/14/23 21:50 Dose: 1 drops Ferrous Sulfate (Ferrous Sulfate 325 Mg Tab) 325 mg PO QAM [facility] Stop: 06/11/23 08:59 Last Admin: 05/14/23 08:34 Dose: 325 mg Furosemide (Furosemide 20 Mg Tab) 20 mg PO BID17 [facility] Stop: 06/10/23 23:23 Last Admin: 05/14/23 16:25 Dose: 20 mg Guaifenesin (Guaifenesin 600 Mg Tabcr) 1,200 mg PO Q12 [facility] Stop: 06/10/23 20:59 Last Admin: 05/14/23 21:50 Dose: 1,200 mg Piperacillin Sod/Tazobactam (Sod 4.5 gm/ Dextrose) 100 mls @ 25 mls/hr IV Q8H [facility]; Protocol Stop: 05/19/23 00:59 Last Infusion: 05/15/23 05:33 Dose: Infused Lactobacillus Acidophilus (Advanced Probiotic 1250 Mg Capsule) 2 cap PO DAILY [facility] Stop: 06/12/23 17:29 Last Admin: 05/14/23 08:34 Dose: 2 cap Levothyroxine Sodium (Levothyroxine Sodium 100 Mcg Tablet) 100 mcg PO DAILYBB [facility] Stop: 06/11/23 06:29 Last Admin: 05/15/23 05:20 Dose: 100 mcg Linaclotide (Linaclotide 145 Mcg Capsule) 145 mcg PO DAILYBB [facility] Stop: 06/11/23 06:29 Last Admin: 05/15/23 05:20 Dose: 145 mcg Magnesium Hydroxide (Magnesium Hydroxide Susp 30 Ml Udc) 30 ml PO Q12H PRN PRN Reason: Constipation Stop: 06/10/23 18:57 Ondansetron HCl (Ondansetron Inj 2 Mg/Ml 2 Ml Vial) 4 mg IV Q6H PRN PRN Reason: Nausea Stop: 06/10/23 18:57 Pantoprazole Sodium (Pantoprazole 40 Mg Tab) 40 mg PO DAILYBB [facility] Stop: 06/11/23 06:29 Last Admin: 05/15/23 05:20 Dose: 40 mg Polyethylene Glycol (Polyethylene (Miralax) 17 Gm Pack) 17 gm PO DAILY PRN PRN Reason: Constipation Stop: 06/10/23 18:57 Potassium Chloride (Potassium Chloride 10 Meq Tabcr) 10 meq PO DAILY [facility] Stop: 06/11/23 08:59 Last Admin: 05/14/23 08:35 Dose: 10 meq Potassium Chloride (Potassium Chloride 20 Meq/15 Ml Udc) 40 meq PO BID [facility] Stop: 06/14/23 08:59 Prednisone (Prednisone 5 Mg Tab) 5 mg PO QAM [facility] Stop: 06/11/23 08:59 Last Admin: 05/14/23 08:34 Dose: 5 mg Vitamin D (Cholecalciferol 5,000 Units 125 Mcg Tab) 5,000 units PO QAM [facility] Stop: 06/12/23 08:59 Last Admin: 05/14/23 08:34 Dose: 5,000 units (3) Fever Fever type: unspecified Qualified Code(s): R50.9 - Fever, unspecified (5) Leukocytosis Leukocytosis type: unspecified Qualified Code(s): D72.829 - Elevated white blood cell count, unspecified
[2023-05-15] MEDS: CYANOCOBALAMIN (B-12) 500 MCG TABLET PO SCH (10:40)
[2023-05-15] MEDS: CHOLECALCIFEROL 125 MCG (5,000 UNITS) TAB PO SCH (10:40)
[2023-05-15] MEDS: DORZOLAMIDE/TIMOLOL 22.3/6.8MG/ML 10 ML BTL OP SCH ×2 (10:40→22:10)
[2023-05-15] MEDS: FERROUS SULFATE 325 MG TAB PO SCH (10:41)
[2023-05-15] MEDS: FUROSEMIDE 20 MG TAB PO SCH ×2 (10:42→17:10)
[2023-05-15] MEDS: predniSONE 5 MG TAB PO SCH (10:42)
[2023-05-15] MEDS: POTASSIUM CHLORIDE 20 MEQ/15 ML UDC PO SCH ×2 (10:42→22:09)
[2023-05-15] MEDS: guaiFENesin 600 MG TABCR PO SCH ×2 (10:42→22:10)
[2023-05-15] MEDS: ADVANCED PROBIOTIC 1250 MG CAPSULE PO SCH (10:42)
[2023-05-15] MEDS: POTASSIUM CHLORIDE 10 MEQ TABCR PO SCH (11:10)
[2023-05-16] MEDS: PIPERACILLIN/TAZOBACTAM 4.5 GM in DEXTROSE 5% MINI-B 100 ML IV SCH ×2 (00:54→10:05)
[2023-05-16] MEDS: LINACLOTIDE 145 MCG CAPSULE PO SCH (05:53)
[2023-05-16] MEDS: PANTOprazole 40 MG TAB PO SCH (05:53)
[2023-05-16] MEDS: LEVOTHYROXINE SODIUM 100 MCG TABLET PO SCH (05:53)
[2023-05-16 06:46] LABS: Hematocrit (blood only) 26.2 % (37.0-47.0); Hemoglobin 8.7 g/dl (12.0-16.0); Mean Corpuscular Hemoglobin 37.7 pg (25.0-34.0); Mean Corpuscular Hgb Conc 33.2 g/dL (32.0-36.0); Mean Corpuscular Volume 113.4 fL (80.0-100.0); Nucleated RBC # (auto) 0.15 K/uL (0.00-0.12); Nucleated RBC % (auto) 0.9 %; Platelet Count 59 K/uL (130-400); RDW Coefficient of Variation 25.1 % (11.5-14.5); RDW Standard Deviation 103.6 fL (36.4-46.3); Red Blood Count 2.31 M/uL (4.20-5.40); White Blood Count 15.81 K/ul (4.8-10.8)
[2023-05-16 06:51] LABS: BUN Creatinine Ratio 21.8 (10-20); Calcium 9.2 mg/dl (8.6-10.3); Creatinine Clr Calc Pharmacy 45.8 ml/min; Est GFR (African American) 97.1 ml/min; Est GFR (Non-African American) 83.7 ml/min; Magnesium 1.8 mg/dl (1.7-2.4); Phosphorus 2.2 mg/dl (2.5-4.9); Potassium 4.2 mmol/L (3.5-5.1)
--- NOTE | 2023-05-16 09:05 | Hospitalist Progress Note ---
Date of Service May 16, 2023 Assessment & Plan (1) Cough: (2) RSV (respiratory syncytial virus infection): (3) Fever: Plan: Presented with cough and weakness On antibiotics recently for UTI and respiratory illness Had fever at home Has chronic leukocytosis, likely due chronic myeloproliferative disease Respiratory PCR is + for RSV Lactate is normal Procal is elevated 0.65 Patient did meet SIRS criteria with leukocytosis, tachycardia. Hence possible Sepsis RSV infection XR chest did not show any acute abnormalities However CT PE noted right lower lobe bronchi opacification with small patchy airspace opacification in right lung base Hence Pneumonia Broad spectrum antibiotics: IV vanc and zosyn initially. MRSA swab negat. - stopping vanco blood cultures - negat. 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 She has no pain or symptoms hindering her ADLs. At this point, we can continue with conservative treatment. She may work with physical therapy and Occupational Therapy as tolerated. Symptomatic relief with activity modification versus oral/IV analgesics. She should follow-up about 7 to 10 days post discharge for follow-up radiographs of the fracture. Conservative mgt PT/OT Vit D level 36.6- increased vit. D supplement History of chronic lymphedema BNP mildly elevated at 410 Reviewed TTE from 02/13 Continue lasix DVT ppx: SCD. Will hold pharm agent for now in view of petechiae/ecchymoses and low platelet count. Low threshold to start once appropriate CODE STATUS: DNR Admission and Anticipated Discharge Date Admission Date: May 11, 2023 Subjective Pt seen in follow up of hypoxia, + RSV, compression vert. fx Currently sitting up in bed in NAD, on suppl. O2. Reports that she is coughing up a lot of sputum. Discussed using flutter valve. Trying to wean off oxygen. No chest pain, shortness of breath, abd. pain, n/v sputum cultx unrevealing. Review of Systems Review of Systems: All systems reviewed & are unremarkable except as noted in Subjective Physical Exam Physical Exam: Constitutional: elderly F, thin/ c achectic, + chroni jodie ill appearin g; no acute distre ss, on suppl. O2 Eyes: PERRL, conjunctiva e normal, anicteri c sclerae ENMT: Hearing deficit. Respiratory: normal respiratory effort, + rhonchi Cardiovascular: Rate/Rhythm: regul ar rate and regula r rhythm S1-S2 Gastrointestinal ( Abdomen): normal bowel sound s, soft, nontender Musculoskeletal: mild Right leg ed saturnino (has chronic l ymphedema especial ly in the right le g) Left ankle bandar a Skin: Petechiae and ecc hymoses in extremi ties Neurologic: PERRL, EOMI, no fa ce palsy, no dysar thria, moves extre mities Psychiatric: A+Ox3, euthymic af fect Results & Data Results & Data Vital Signs (Past 12 Hours) Vital Signs Temp Pulse Pulse Resp BP Pulse Ox O2 Del Method 05/16/23 08:17 72 05/16/23 07:45 36.2 C L 71 16 146/63 H 99 Nasal Cannula 05/16/23 04:03 36.6 C 73 18 112/56 L 98 Nasal Cannula 05/15/23 23:09 37.0 C 85 18 139/56 L 94 Nasal Cannula 05/15/23 22:04 81 O2 Flow Rate 05/16/23 08:17 05/16/23 07:45 1 05/16/23 04:03 2 05/15/23 23:09 2 05/15/23 22:04 Laboratory Results 05/16/23 05/15/23 Range/Units 05:49 Unknown WBC 15.81 H (4.8-10.8) K/ul RBC 2.31 L (4.20-5.40) M/uL Hgb 8.7 L (12.0-16.0) g/dl Hct 26.2 L (37.0-47.0) % MCV 113.4 H (80.0-100.0) fL MCH 37.7 H (25.0-34.0) pg MCHC 33.2 (32.0-36.0) g/dL RDW Std Deviation 103.6 H (36.4-46.3) fL RDW Coeff of Yee 25.1 H (11.5-14.5) % Plt Count 59 L (130-400) K/uL Absolute Nucleated RBC 0.15 H (0.00-0.12) K/uL Nucleated RBC % (auto) 0.9 % Sodium 132 L (136-145) mmol/L Potassium 4.2 D (3.5-5.1) mmol/L Chloride 96 L (98-107) mmol/L Carbon Dioxide 34 H (21-32) mmol/L Anion Gap 2 L (3-11) BUN 12 (6-23) mg/dl Creatinine 0.55 L (0.6-1.2) mg/dl Est Cr Clr Drug Dosing 45.8 ml/min Est GFR ( Amer) 97.1 ml/min Est GFR (Non-Af Amer) 83.7 ml/min BUN/Creatinine Ratio 21.8 H (10-20) Glucose 85 (70-99(Fasting)) mg/dl Calcium 9.2 (8.6-10.3) mg/dl Phosphorus 2.2 L (2.5-4.9) mg/dl Magnesium 1.8 (1.7-2.4) mg/dl Stl C. diff Tox B Gene Negative Cdiff Gene (Neg) Medications Administered Current Inpatient Medications Acetaminophen (Acetaminophen 325 Mg Tab) 650 mg PO Q4H PRN PRN Reason: Pain or Fever Stop: 06/10/23 18:57 Al Hydrox/Mg Hydrox/Simethicone (Aluminum/Magnesium Susp 30 Ml Udc) 15 ml PO Q4H PRN PRN Reason: Dyspepsia Stop: 06/10/23 18:57 Cyanocobalamin (Cyanocobalamin (B-12) 500 Mcg Tablet) 500 mcg PO DAILY [facility] Stop: 06/11/23 08:59 Last Admin: 05/15/23 10:40 Dose: 500 mcg Dexamethasone (Dexamethasone 2 Mg/20 Ml Udp) 0.5 mg PO BID PRN PRN Reason: mouth ulcers Stop: 06/10/23 23:23 Dorzolamide/Timolol (Dorzolamide/Timolol 22.3/6.8mg/Ml 10 Ml Btl) 1 drops OP BID [facility] Stop: 02/18/24 08:59 Last Admin: 05/15/23 22:10 Dose: 1 drops Ferrous Sulfate (Ferrous Sulfate 325 Mg Tab) 325 mg PO QAM [facility] Stop: 06/11/23 08:59 Last Admin: 05/15/23 10:41 Dose: 325 mg Furosemide (Furosemide 20 Mg Tab) 20 mg PO BID17 [facility] Stop: 06/10/23 23:23 Last Admin: 05/15/23 17:10 Dose: 20 mg Guaifenesin (Guaifenesin 600 Mg Tabcr) 1,200 mg PO Q12 [facility] Stop: 06/10/23 20:59 Last Admin: 05/15/23 22:10 Dose: 1,200 mg Piperacillin Sod/Tazobactam (Sod 4.5 gm/ Dextrose) 100 mls @ 25 mls/hr IV Q8H [facility]; Protocol Stop: 05/19/23 00:59 Last Infusion: 05/16/23 04:54 Dose: Infused Lactobacillus Acidophilus (Advanced Probiotic 1250 Mg Capsule) 2 cap PO DAILY [facility] Stop: 06/12/23 17:29 Last Admin: 05/15/23 10:42 Dose: 2 cap Levothyroxine Sodium ([facility]othyroxine Sodium 100 [facility]g Tablet) [facility]: 06/11/23 06:29 Last Admin: 05/16/23 05:53 Dose: 100 mcg Linaclotide (Linaclotide 145 Mcg Capsule) 145 mcg PO DAILYBB [facility] Stop: 06/11/23 06:29 Last Admin: 05/16/23 05:53 Dose: 145 mcg Magnesium Hydroxide (Magnesium Hydroxide Susp 30 Ml Udc) 30 ml PO Q12H PRN PRN Reason: Constipation Stop: 06/10/23 18:57 Ondansetron HCl (Ondansetron Inj 2 Mg/Ml 2 Ml Vial) 4 mg IV Q6H PRN PRN Reason: Nausea Stop: 06/10/23 18:57 Pantoprazole Sodium ([facility] 40 Mg Tab) [facility]: 06/11/23 06:29 Last Admin: 05/16/23 05:53 Dose: 40 mg Polyethylene Glycol (Polyethylene (Miralax) 17 Gm Pack) 17 gm PO DAILY PRN PRN Reason: Constipation Stop: 06/10/23 18:57 Potassium Chloride (Potassium Chloride 10 Meq Tabcr) 10 meq PO DAILY [facility] Stop: 06/11/23 08:59 Last Admin: 05/15/23 11:10 Dose: 10 meq Potassium Chloride (Potassium Chloride 20 Meq/15 Ml Udc) 40 meq PO BID [facility] Stop: 06/14/23 08:59 Last Admin: 05/15/23 22:09 Dose: 40 meq Prednisone (Prednisone 5 Mg Tab) [facility] Stop: 06/11/23 08:59 Last Admin: 05/15/23 10:42 Dose: 5 mg Vitamin D (Cholecalciferol 5,000 Units 125 Mcg Tab) 5,000 units [facility] Stop: 06/12/23 08:59 Last Admin: 05/15/23 10:40 Dose: 5,000 units (3) Fever Fever type: unspecified Qualified Code(s): R50.9 - Fever, unspecified (5) Leukocytosis Leukocytosis type: unspecified Qualified Code(s): D72.829 - Elevated white blood cell count, unspecified
[2023-05-16] MEDS: guaiFENesin 600 MG TABCR PO SCH ×2 (10:06→20:58)
[2023-05-16] MEDS: ADVANCED PROBIOTIC 1250 MG CAPSULE PO SCH (10:06)
[2023-05-16] MEDS: FERROUS SULFATE 325 MG TAB PO SCH (10:07)
[2023-05-16] MEDS: CYANOCOBALAMIN (B-12) 500 MCG TABLET PO SCH (10:07)
[2023-05-16] MEDS: CHOLECALCIFEROL 125 MCG (5,000 UNITS) TAB PO SCH (10:07)
[2023-05-16] MEDS: POTASSIUM CHLORIDE 10 MEQ TABCR PO SCH (10:07)
[2023-05-16] MEDS: FUROSEMIDE 20 MG TAB PO SCH ×2 (10:07→17:05)
[2023-05-16] MEDS: DORZOLAMIDE/TIMOLOL 22.3/6.8MG/ML 10 ML BTL OP SCH ×2 (10:08→20:58)
[2023-05-16] MEDS: predniSONE 5 MG TAB PO SCH (10:08)
[2023-05-16] MEDS: POTASSIUM CHLORIDE 20 MEQ/15 ML UDC PO SCH ×2 (10:08→20:58)
[2023-05-16] MEDS: AMOXICILLIN/CLAVULANATE 875 MG TAB PO SCH (17:05)
[2023-05-16] MEDS: SODIUM CHLOR 7% 4 ML NEB NEB SCH (19:36)
[2023-05-17] MEDS: LEVOTHYROXINE SODIUM 100 MCG TABLET PO SCH (06:27)
[2023-05-17] MEDS: LINACLOTIDE 145 MCG CAPSULE PO SCH (06:27)
[2023-05-17] MEDS: PANTOprazole 40 MG TAB PO SCH (06:28)
[2023-05-17 06:32] LABS: Hematocrit (blood only) 29.5 % (37.0-47.0); Hemoglobin 9.5 g/dl (12.0-16.0); Mean Corpuscular Hemoglobin 37.7 pg (25.0-34.0); Mean Corpuscular Hgb Conc 32.2 g/dL (32.0-36.0); Mean Corpuscular Volume 117.1 fL (80.0-100.0); Nucleated RBC # (auto) 0.16 K/uL (0.00-0.12); Nucleated RBC % (auto) 0.8 %; Platelet Count 62 K/uL (130-400); RDW Coefficient of Variation 25.3 % (11.5-14.5); RDW Standard Deviation 109.1 fL (36.4-46.3); Red Blood Count 2.52 M/uL (4.20-5.40); White Blood Count 19.88 K/ul (4.8-10.8)
[2023-05-17 06:47] LABS: BUN Creatinine Ratio 25.5 (10-20); Calcium 9.9 mg/dl (8.6-10.3); Creatinine Clr Calc Pharmacy 43.4 ml/min; Est GFR (African American) 97.1 ml/min; Est GFR (Non-African American) 83.7 ml/min; Magnesium 1.9 mg/dl (1.7-2.4); Phosphorus 2.8 mg/dl (2.5-4.9); Potassium 4.7 mmol/L (3.5-5.1)
[2023-05-17] MEDS: SODIUM CHLOR 7% 4 ML NEB NEB SCH (07:34)
[2023-05-17] MEDS: POTASSIUM CHLORIDE 20 MEQ/15 ML UDC PO SCH (09:54)
[2023-05-17] MEDS: AMOXICILLIN/CLAVULANATE 875 MG TAB PO SCH ×2 (09:54→17:50)
[2023-05-17] MEDS: guaiFENesin 600 MG TABCR PO SCH ×2 (09:54→21:29)
[2023-05-17] MEDS: FERROUS SULFATE 325 MG TAB PO SCH (09:55)
[2023-05-17] MEDS: DORZOLAMIDE/TIMOLOL 22.3/6.8MG/ML 10 ML BTL OP SCH ×2 (09:55→21:28)
[2023-05-17] MEDS: FUROSEMIDE 20 MG TAB PO SCH ×2 (09:55→17:50)
[2023-05-17] MEDS: CHOLECALCIFEROL 125 MCG (5,000 UNITS) TAB PO SCH (09:55)
[2023-05-17] MEDS: ADVANCED PROBIOTIC 1250 MG CAPSULE PO SCH (09:55)
[2023-05-17] MEDS: predniSONE 5 MG TAB PO SCH (09:55)
[2023-05-17] MEDS: CYANOCOBALAMIN (B-12) 500 MCG TABLET PO SCH (09:56)
[2023-05-17] MEDS: POTASSIUM CHLORIDE 10 MEQ TABCR PO SCH (09:56)
--- NOTE | 2023-05-17 15:52 | Hospitalist Progress Note ---
Date of Service May 17, 2023 Assessment & Plan (1) Cough: (2) RSV (respiratory syncytial virus infection): (3) Fever: Plan: per previous hospitalist notes with addendum: Presented with cough and weakness On antibiotics recently for UTI and respiratory illness Had fever at home Has chronic leukocytosis, likely due chronic myeloproliferative disease Respiratory PCR is + for RSV Lactate is normal Procal is elevated 0.65 Patient did meet SIRS criteria with leukocytosis, tachycardia. Hence possible Sepsis RSV infection XR chest did not show any acute abnormalities However CT PE noted right lower lobe bronchi opacification with small patchy airspace opacification in right lung base Hence Pneumonia Broad spectrum antibiotics: IV vanc and zosyn initially. MRSA swab negat. - stopping vanco blood cultures - negat. 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 She has no pain or symptoms hindering her ADLs. At this point, we can continue with conservative treatment. She may work with physical therapy and Occupational Therapy as tolerated. Symptomatic relief with activity modification versus oral/IV analgesics. She should follow-up about 7 to 10 days post discharge for follow-up radiographs of the fracture. Conservative mgt PT/OT Vit D level 36.6- increased vit. D supplement 05/17 denies pain continue conservative management History of chronic lymphedema BNP mildly elevated at 410 Reviewed TTE from 02/13 Continue Lasix DVT ppx: SCD. Will hold pharm agent for now in view of petechiae/ecchymoses and low platelet count. Low threshold to start once appropriate CODE STATUS: DNR Admission and Anticipated Discharge Date Admission Date: May 11, 2023 Subjective ff up for acute respiratory failure, RSV, etc seen resting in bed, comfortable on 2 L NC states she feels tired- did not sleep well no cough, sputum production no chest pain, dyspnea, palpitations, dizziness no other new symptoms Review of Systems Review of Systems: all noted and negative except for above Physical Exam Physical Exam: General- oriented x 3, not in distress, speaks in sentences with no effort or accessory muscle use weak, frail Eyes- anicteric Neck- no JVD Lungs- clear breath sounds bilaterally, no rales/wheezes Heart- normal rate, regular rhythm; no murmurs Abdomen- normal bowel sounds, nondistended, soft, nontender Extremities- no pretibial edema, no calf tenderness Neuro- alert, oriented x 3; no gross focal neurologic deficits Skin- warm & dry Results & Data Results & Data Vital Signs (Past 12 Hours) Vital Signs Temp Pulse Pulse Resp BP Pulse Ox O2 Del Method 05/17/23 11:35 36.7 C 68 17 121/53 L 99 Nasal Cannula 05/17/23 08:00 69 05/17/23 07:48 Nasal Cannula 05/17/23 07:34 70 18 88 L Room Air 05/17/23 07:21 36.4 C L 70 18 129/66 100 Nasal Cannula O2 Flow Rate 05/17/23 11:35 2 05/17/23 08:00 05/17/23 07:48 2 05/17/23 07:34 05/17/23 07:21 2 all noted and reviewed including below (3) Fever Fever type: unspecified Qualified Code(s): R50.9 - Fever, unspecified (5) Leukocytosis Leukocytosis type: unspecified Qualified Code(s): D72.829 - Elevated white blood cell count, unspecified
[2023-05-17] MEDS: ACETAMINOPHEN 325 MG TAB PO PRN (21:29)
[2023-05-18] MEDS: PANTOprazole 40 MG TAB PO SCH (08:25)
[2023-05-18] MEDS: LEVOTHYROXINE SODIUM 100 MCG TABLET PO SCH (08:26)
[2023-05-18] MEDS: LINACLOTIDE 145 MCG CAPSULE PO SCH (08:26)
[2023-05-18] MEDS: guaiFENesin 600 MG TABCR PO SCH ×2 (08:26→21:39)
[2023-05-18] MEDS: FERROUS SULFATE 325 MG TAB PO SCH (08:26)
[2023-05-18] MEDS: POTASSIUM CHLORIDE 10 MEQ TABCR PO SCH (08:27)
[2023-05-18] MEDS: CHOLECALCIFEROL 125 MCG (5,000 UNITS) TAB PO SCH ×2 (08:28→10:12)
[2023-05-18] MEDS: predniSONE 5 MG TAB PO SCH (10:12)
[2023-05-18] MEDS: CYANOCOBALAMIN (B-12) 500 MCG TABLET PO SCH (10:12)
[2023-05-18] MEDS: ADVANCED PROBIOTIC 1250 MG CAPSULE PO SCH (10:12)
[2023-05-18] MEDS: FUROSEMIDE 20 MG TAB PO SCH ×2 (10:12→16:50)
[2023-05-18] MEDS: DORZOLAMIDE/TIMOLOL 22.3/6.8MG/ML 10 ML BTL OP SCH ×2 (10:13→21:39)
[2023-05-18] MEDS: AMOXICILLIN/CLAVULANATE 875 MG TAB PO SCH ×2 (10:13→16:49)
--- NOTE | 2023-05-18 18:35 | Hospitalist Progress Note ---
Date of Service May 18, 2023 delayed entry date of service noted above Assessment & Plan (1) Cough: (2) RSV (respiratory syncytial virus infection): (3) Fever: Plan: per previous hospitalist notes with addendum: Presented with cough and weakness On antibiotics recently for UTI and respiratory illness Had fever at home Has chronic leukocytosis, likely due chronic myeloproliferative disease Respiratory PCR is + for RSV Lactate is normal Procal is elevated 0.65 Patient did meet SIRS criteria with leukocytosis, tachycardia. Hence possible Sepsis RSV infection XR chest did not show any acute abnormalities However CT PE noted right lower lobe bronchi opacification with small patchy airspace opacification in right lung base Hence Pneumonia Broad spectrum antibiotics: IV vanc and zosyn initially. MRSA swab negat. - stopping vanco blood cultures - negat. 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 She has no pain or symptoms hindering her ADLs. At this point, we can continue with conservative treatment. She may work with physical therapy and Occupational Therapy as tolerated. Symptomatic relief with activity modification versus oral/IV analgesics. She should follow-up about 7 to 10 days post discharge for follow-up radiographs of the fracture. Conservative mgt PT/OT Vit D level 36.6- increased vit. D supplement 05/18 denies pain continue conservative management History of chronic lymphedema BNP mildly elevated at 410 Reviewed TTE from 02/13 Continue Lasix DVT ppx: SCD. Will hold pharm agent for now in view of petechiae/ecchymoses and low platelet count. Low threshold to start once appropriate CODE STATUS: DNR Admission and Anticipated Discharge Date Admission Date: May 11, 2023 Subjective Follow-up for RSV, pneumonia, etc. Seen resting in bed, comfortable, not in distress States she still feels weak overall No shortness of breath or cough No other new symptoms Review of Systems Review of Systems: all noted and negative except for above Physical Exam Physical Exam: General- oriented x 3, not in distress, speaks in sentences with no effort or accessory muscle use Eyes- anicteric Neck- no JVD Lungs-mild rhonchi at the right lower lobe Heart- normal rate, regular rhythm; no murmurs Abdomen- normal bowel sounds, nondistended, soft, no tenderness Extremities- no pretibial edema, no calf tenderness Neuro- alert, oriented x 3; no gross focal neurologic deficits Skin- warm & dry Results & Data Results & Data Vital Signs (Past 12 Hours) Vital Signs Temp Pulse Pulse Resp BP Pulse Ox O2 Del Method 05/18/23 16:53 36.3 C L 72 17 131/52 L 100 Nasal Cannula 05/18/23 14:03 79 05/18/23 11:46 36.6 C 65 17 122/55 L 100 Nasal Cannula 05/18/23 07:42 36.5 C 69 16 115/55 L 98 Nasal Cannula 05/18/23 07:34 Nasal Cannula 05/18/23 07:00 66 O2 Flow Rate 05/18/23 16:53 2 05/18/23 14:03 05/18/23 11:46 2 05/18/23 07:42 2 05/18/23 07:34 2 05/18/23 07:00 all noted and reviewed including below (3) Fever Fever type: unspecified Qualified Code(s): R50.9 - Fever, unspecified (5) Leukocytosis Leukocytosis type: unspecified Qualified Code(s): D72.829 - Elevated white blood cell count, unspecified
[2023-05-19] MEDS: PANTOprazole 40 MG TAB PO SCH (06:03)
[2023-05-19] MEDS: LEVOTHYROXINE SODIUM 100 MCG TABLET PO SCH (06:03)
[2023-05-19] MEDS: LINACLOTIDE 145 MCG CAPSULE PO SCH (06:04)
[2023-05-19] MEDS: ADVANCED PROBIOTIC 1250 MG CAPSULE PO SCH (08:22)
[2023-05-19] MEDS: FERROUS SULFATE 325 MG TAB PO SCH (08:22)
[2023-05-19] MEDS: guaiFENesin 600 MG TABCR PO SCH ×2 (08:23→20:04)
[2023-05-19] MEDS: CHOLECALCIFEROL 125 MCG (5,000 UNITS) TAB PO SCH (08:23)
[2023-05-19] MEDS: FUROSEMIDE 20 MG TAB PO SCH ×2 (08:23→16:10)
[2023-05-19] MEDS: CYANOCOBALAMIN (B-12) 500 MCG TABLET PO SCH (08:23)
[2023-05-19] MEDS: predniSONE 5 MG TAB PO SCH (08:23)
[2023-05-19] MEDS: AMOXICILLIN/CLAVULANATE 875 MG TAB PO SCH ×2 (08:24→16:10)
[2023-05-19] MEDS: DORZOLAMIDE/TIMOLOL 22.3/6.8MG/ML 10 ML BTL OP SCH ×2 (08:24→20:04)
[2023-05-19] MEDS: POTASSIUM CHLORIDE 10 MEQ TABCR PO SCH (08:27)
--- NOTE | 2023-05-19 14:53 | Hospitalist Progress Note ---
Date of Service May 19, 2023 Assessment & Plan (1) Cough: (2) RSV (respiratory syncytial virus infection): (3) Fever: Plan: per previous hospitalist notes with addendum: Presented with cough and weakness On antibiotics recently for UTI and respiratory illness Had fever at home Has chronic leukocytosis, likely due chronic myeloproliferative disease Respiratory PCR is + for RSV Lactate is normal Procal is elevated 0.65 Patient did meet SIRS criteria with leukocytosis, tachycardia. Hence possible Sepsis RSV infection XR chest did not show any acute abnormalities However CT PE noted right lower lobe bronchi opacification with small patchy airspace opacification in right lung base Hence Pneumonia Broad spectrum antibiotics: IV vanc and zosyn initially. MRSA swab negat. - stopping vanco blood cultures - negat. 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 She has no pain or symptoms hindering her ADLs. At this point, we can continue with conservative treatment. She may work with physical therapy and Occupational Therapy as tolerated. Symptomatic relief with activity modification versus oral/IV analgesics. She should follow-up about 7 to 10 days post discharge for follow-up radiographs of the fracture. Conservative mgt PT/OT Vit D level 36.6- increased vit. D supplement 05/19 denies pain continue conservative management History of chronic lymphedema BNP mildly elevated at 410 Reviewed TTE from 02/13 Continue Lasix BID DVT ppx: SCD. Will hold pharm agent for now in view of petechiae/ecchymoses and low platelet count. Low threshold to start once appropriate CODE STATUS: DNR Admission and Anticipated Discharge Date Admission Date: May 11, 2023 Subjective Follow-up for pneumonia, RSV, etc. Resting in bed, comfortable, not in distress States she is still feeling weak Breathing is fine, no cough, no fevers or chills Abdominal pain Appetite is okay No other new symptoms States she would like to get stronger and will try physical therapy today Review of Systems Review of Systems: all noted and negative except for above Physical Exam Physical Exam: General- oriented x 3, not in distress, speaks in sentences with no effort or accessory muscle use Eyes- anicteric Neck- no JVD Lungs- clear breath sounds bilaterally, no crackles or wheezes Heart- normal rate, regular rhythm; no murmurs Abdomen- normal bowel sounds, nondistended, soft, no tenderness Extremities- no pretibial edema, no calf tenderness Neuro- alert, oriented x 3; no gross focal neurologic deficits Skin- warm & dry Results & Data Results & Data Vital Signs (Past 12 Hours) Vital Signs Temp Pulse Pulse Resp BP Pulse Ox O2 Del Method 05/19/23 12:05 36.7 C 69 17 110/51 L 97 Nasal Cannula 05/19/23 09:00 Nasal Cannula 05/19/23 07:39 36.5 C 69 17 123/53 L 97 Nasal Cannula 05/19/23 07:00 66 05/19/23 04:08 36.5 C 60 18 120/59 L 100 Room Air O2 Flow Rate 05/19/23 12:05 17 05/19/23 09:00 2 05/19/23 07:39 2 05/19/23 07:00 05/19/23 04:08 all noted and reviewed including below (3) Fever Fever type: unspecified Qualified Code(s): R50.9 - Fever, unspecified (5) Leukocytosis Leukocytosis type: unspecified Qualified Code(s): D72.829 - Elevated white blood cell count, unspecified
[2023-05-20] MEDS: LEVOTHYROXINE SODIUM 100 MCG TABLET PO SCH (05:31)
[2023-05-20] MEDS: PANTOprazole 40 MG TAB PO SCH (05:32)
[2023-05-20] MEDS: LINACLOTIDE 145 MCG CAPSULE PO SCH (05:32)
[2023-05-20] MEDS: guaiFENesin 600 MG TABCR PO SCH ×2 (08:00→19:45)
[2023-05-20] MEDS: POTASSIUM CHLORIDE 10 MEQ TABCR PO SCH (08:00)
[2023-05-20] MEDS: FUROSEMIDE 20 MG TAB PO SCH ×2 (08:00→16:25)
[2023-05-20] MEDS: CYANOCOBALAMIN (B-12) 500 MCG TABLET PO SCH (08:00)
[2023-05-20] MEDS: ADVANCED PROBIOTIC 1250 MG CAPSULE PO SCH (08:00)
[2023-05-20] MEDS: FERROUS SULFATE 325 MG TAB PO SCH (08:00)
[2023-05-20] MEDS: predniSONE 5 MG TAB PO SCH (08:00)
[2023-05-20] MEDS: AMOXICILLIN/CLAVULANATE 875 MG TAB PO SCH ×2 (08:06→16:24)
[2023-05-20] MEDS: ACETAMINOPHEN 325 MG TAB PO PRN ×2 (12:04→19:42)
[2023-05-20] MEDS: DORZOLAMIDE/TIMOLOL 22.3/6.8MG/ML 10 ML BTL OP SCH ×2 (12:06→19:44)
--- NOTE | 2023-05-20 17:58 | Hospitalist Progress Note ---
Date of Service May 20, 2023 Assessment & Plan (1) Cough: (2) RSV (respiratory syncytial virus infection): (3) Fever: Plan: per previous hospitalist notes with addendum: Presented with cough and weakness On antibiotics recently for UTI and respiratory illness Had fever at home Has chronic leukocytosis, likely due chronic myeloproliferative disease Respiratory PCR is + for RSV Lactate is normal Procal is elevated 0.65 Patient did meet SIRS criteria with leukocytosis, tachycardia. Hence possible Sepsis RSV infection XR chest did not show any acute abnormalities However CT PE noted right lower lobe bronchi opacification with small patchy airspace opacification in right lung base Hence Pneumonia Broad spectrum antibiotics: IV vanc and zosyn initially. MRSA swab negat. - stopping vanco blood cultures - negat. in 48 hrs sputum cultx - unrevealing switch to PO abx Antitussives, guaifenesin, flutter valve, IS Supportive care 05/17 continue Augmentin BID continue Hypertonic saline BID wean off oxygen accordingly Patient and daughter denied vomiting or dysphagia WIRE WEAVING LOOM SETTER eval Aspiration precautions 05/18 Respiratory status stable Continue present regimen 05/19 Breathing is fine 97% on 2 L Continue Augmentin Chief complaint is weakness, likely secondary to deconditioning from pneumonia PT and OT evaluation in progress 05/20 stable overall continue Mucinex, Augmentin (4) Thrombocytopenia: (5) Leukocytosis: (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 She has no pain or symptoms hindering her ADLs. At this point, we can continue with conservative treatment. She may work with physical therapy and Occupational Therapy as tolerated. Symptomatic relief with activity modification versus oral/IV analgesics. She should follow-up about 7 to 10 days post discharge for follow-up radiographs of the fracture. Conservative mgt PT/OT Vit D level 36.6- increased vit. D supplement 05/20 denies pain continue conservative management History of chronic lymphedema BNP mildly elevated at 410 Reviewed TTE from 02/13 Continue Lasix BID DVT ppx: SCD. Will hold pharm agent for now in view of petechiae/ecchymoses and low platelet count. Low threshold to start once appropriate CODE STATUS: DNR Admission and Anticipated Discharge Date Admission Date: May 11, 2023 Subjective ff up for weakness, RSV, pneumonia, etc seen resting in bed, comfortable states she feels ok, just weak ,no chest pain, dyspnea, palpitations, dizziness no other new symptoms Review of Systems Review of Systems: all noted and negative except for above Physical Exam Physical Exam: General- oriented x 3, not in distress, speaks in sentences with no effort or accessory muscle use Eyes- anicteric Neck- no JVD Lungs- clear breath sounds bilaterally Heart- normal rate, regular rhythm; no murmurs Abdomen- normal bowel sounds, nondistended, soft, no tenderness Extremities- no pretibial edema, no calf tenderness Neuro- alert, oriented x 3; no gross focal neurologic deficits Skin- warm & dry Results & Data Results & Data Vital Signs (Past 12 Hours) Vital Signs Temp Pulse Pulse Resp BP Pulse Ox O2 Del Method 05/20/23 14:58 67 05/20/23 12:26 36.6 C 72 16 119/53 L 96 Room Air 05/20/23 08:00 Nasal Cannula 05/20/23 08:00 63 05/20/23 07:59 36.4 C L 64 16 129/50 L 100 Nasal Cannula O2 Flow Rate 05/20/23 14:58 05/20/23 12:26 05/20/23 08:00 1 05/20/23 08:00 05/20/23 07:59 1 all noted and reviewed including below (3) Fever Fever type: unspecified Qualified Code(s): R50.9 - Fever, unspecified (5) Leukocytosis Leukocytosis type: unspecified Qualified Code(s): D72.829 - Elevated white blood cell count, unspecified
[2023-05-21] MEDS: LINACLOTIDE 145 MCG CAPSULE PO SCH (05:57)
[2023-05-21] MEDS: LEVOTHYROXINE SODIUM 100 MCG TABLET PO SCH (05:57)
[2023-05-21] MEDS: PANTOprazole 40 MG TAB PO SCH (05:57)
[2023-05-21] MEDS ORDERED: ACETAMINOPHEN 500 MG TAB PO PRN (07:41)
[2023-05-21 09:19] LABS: BUN Creatinine Ratio 40.4 (10-20); Calcium 9.9 mg/dl (8.6-10.3); Creatinine Clr Calc Pharmacy 52.8 ml/min; Est GFR (African American) 102.2 ml/min; Est GFR (Non-African American) 88.2 ml/min; Hematocrit (blood only) 26.7 % (37.0-47.0); Hemoglobin 8.9 g/dl (12.0-16.0); Mean Corpuscular Hemoglobin 37.7 pg (25.0-34.0); Mean Corpuscular Hgb Conc 33.3 g/dL (32.0-36.0); Mean Corpuscular Volume 113.1 fL (80.0-100.0); Nucleated RBC # (auto) 0.18 K/uL (0.00-0.12); Platelet Count 83 K/uL (130-400); Potassium 3.7 mmol/L (3.5-5.1); RDW Coefficient of Variation 25.2 % (11.5-14.5); RDW Standard Deviation 103.9 fL (36.4-46.3); Red Blood Count 2.36 M/uL (4.20-5.40); White Blood Count 18.07 K/ul (4.8-10.8)
[2023-05-21] MEDS: ACETAMINOPHEN 1,000 MG/100 ML VIAL IV PRN ×2 (09:32→17:36)
[2023-05-21] MEDS: guaiFENesin 600 MG TABCR PO SCH ×2 (09:37→20:09)
[2023-05-21] MEDS: FUROSEMIDE 20 MG TAB PO SCH (09:39)
[2023-05-21] MEDS: AMOXICILLIN/CLAVULANATE 875 MG TAB PO SCH ×2 (09:39→17:44)
[2023-05-21] MEDS: FERROUS SULFATE 325 MG TAB PO SCH (09:40)
[2023-05-21] MEDS: predniSONE 5 MG TAB PO SCH (09:41)
[2023-05-21] MEDS: CHOLECALCIFEROL 125 MCG (5,000 UNITS) TAB PO SCH (09:41)
[2023-05-21] MEDS: DORZOLAMIDE/TIMOLOL 22.3/6.8MG/ML 10 ML BTL OP SCH ×2 (09:42→20:08)
[2023-05-21] MEDS: ADVANCED PROBIOTIC 1250 MG CAPSULE PO SCH (09:43)
[2023-05-21] MEDS: CYANOCOBALAMIN (B-12) 500 MCG TABLET PO SCH (09:45)
[2023-05-21] MEDS: POTASSIUM CHLORIDE 10 MEQ TABCR PO SCH (09:51)
[2023-05-21 10:08] LABS: Anisocytosis Present; Basophilic Stippling 1+; Basophils # (auto) 0.31 K/uL (0.00-0.20); Basophils % (auto) 1.7 %; Eosinophils # (auto) 0.72 K/uL (0.00-0.50); Immature Granulocytes # (auto) 1.17 K/uL (0.01-0.20); Immature Granulocytes % (auto) 6.5 %; Lymphocytes # (auto) 1.17 K/uL (1.20-3.40); Lymphocytes % (auto) 6.5 %; Macrocytosis Present; Monocytes % (auto) 12.2 %; Neutrophils % (auto) 69.1 %; Ovalocytes 1+; Polychromasia 1+; Tear Drop Cells 2+
[2023-05-21] MEDS ORDERED: traMADol HCL 50 MG TABLET PO PRN (12:25)
--- NOTE | 2023-05-21 13:21 | Hospitalist Progress Note ---
Date of Service May 21, 2023 Assessment & Plan (1) Cough: (2) RSV (respiratory syncytial virus infection): (3) Fever: Plan: per previous hospitalist notes with addendum: Presented with cough and weakness On antibiotics recently for UTI and respiratory illness Had fever at home Has chronic leukocytosis, likely due chronic myeloproliferative disease Respiratory PCR is + for RSV Lactate is normal Procal is elevated 0.65 Patient did meet SIRS criteria with leukocytosis, tachycardia. Hence possible Sepsis RSV infection XR chest did not show any acute abnormalities However CT PE noted right lower lobe bronchi opacification with small patchy airspace opacification in right lung base Hence Pneumonia Broad spectrum antibiotics: IV vanc and zosyn initially. MRSA swab negat. - stopping vanco blood cultures - negat. in 48 hrs sputum cultx - unrevealing switch to PO abx Antitussives, guaifenesin, flutter valve, IS Supportive care 05/17 continue Augmentin BID continue Hypertonic saline BID wean off oxygen accordingly Patient and daughter denied vomiting or dysphagia DOLLY DRIVER eval Aspiration precautions 05/18 Respiratory status stable Continue present regimen 05/19 Breathing is fine 97% on 2 L Continue Augmentin Chief complaint is weakness, likely secondary to deconditioning from pneumonia PT and OT evaluation in progress 05/20 stable overall continue Mucinex, Augmentin 05/21 Respiratory status stable Continue Augmentin day number 6 out of 7 Monitor closely (4) Thrombocytopenia: (5) Leukocytosis: (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 She has no pain or symptoms hindering her ADLs. At this point, we can continue with conservative treatment. She may work with physical therapy and Occupational Therapy as tolerated. Symptomatic relief with activity modification versus oral/IV analgesics. She should follow-up about 7 to 10 days post discharge for follow-up radiographs of the fracture. Conservative mgt PT/OT Vit D level 36.6- increased vit. D supplement 05/21 denies pain continue conservative management History of chronic lymphedema BNP mildly elevated at 410 Reviewed TTE from 02/13 Continue Lasix BID DVT ppx: SCD. Will hold pharm agent for now in view of petechiae/ecchymoses and low platelet count. Low threshold to start once appropriate CODE STATUS: DNR Admission and Anticipated Discharge Date Admission Date: May 11, 2023 Subjective Follow-up for RSV, pneumonia, etc. Seen resting in bed, comfortable, not in distress On 2 L of oxygen States that she still feels weak Appetite is good No shortness of breath, cough, sputum No fevers or chills No other new symptoms Review of Systems Review of Systems: all noted and negative except for above Physical Exam Physical Exam: General- oriented x 3, not in distress, speaks in sentences with no effort or accessory muscle use Eyes- anicteric Neck- no JVD Lungs- clear breath sounds bilaterally, no crackles, no wheezing noted Heart- normal rate, regular rhythm; no murmurs Abdomen- normal bowel sounds, nondistended, soft, no tenderness Extremities- no pretibial edema, no calf tenderness Neuro- alert, oriented x 3; no gross focal neurologic deficits Skin- warm & dry Results & Data Results & Data Vital Signs (Past 12 Hours) Vital Signs Temp Pulse Pulse Resp BP BP Pulse Ox 05/21/23 12:48 36.5 C 61 16 106/51 L 93 05/21/23 11:25 56 L 05/21/23 09:55 94 05/21/23 08:00 05/21/23 07:47 36.4 C L 58 L 16 115/52 L 98 05/21/23 03:10 36.4 C L 61 18 128/57 L 100 O2 Del Method O2 Flow Rate 05/21/23 12:48 Room Air 05/21/23 11:25 05/21/23 09:55 Room Air 05/21/23 08:00 Room Air 05/21/23 07:47 Nasal Cannula 2 05/21/23 03:10 Nasal Cannula 2 all noted and reviewed including below (3) Fever Fever type: unspecified Qualified Code(s): R50.9 - Fever, unspecified (5) Leukocytosis Leukocytosis type: unspecified Qualified Code(s): D72.829 - Elevated white blood cell count, unspecified
[2023-05-21] MEDS ORDERED: traMADol HCL 50 MG TABLET ONE (13:37)
--- NOTE | 2023-05-21 15:53 | CT Scan Report ---
CT abd pelvis wo con CLINICAL HISTORY: abdominal pain TECHNIQUE: Helical axial images of the abdomen and pelvis were obtained. Automated dose lowering tech niques and/or adjustment according to patient size were utilized for this exam. This exam was perfor med without intravenous contrast. CT DOSE: 432.57 mGy.cm COMPARISON: None available at the time of this dictation. FINDINGS: Lower chest: Bibasilar atelectasis versus scarring is seen. Liver: Nodular contour of the liver is seen compatible with cirrhosis. Gallbladder and biliary tree: Patient is status post cholecystectomy. No intra- or extrahepatic bilia ry ductal dilation. Pancreas: Unremarkable, no focal lesions. Spleen: Splenomegaly is noted, the spleen measures 17.7 cm. Adrenals: Unremarkable. Kidneys and ureters: Renal cysts are seen. Bladder: Unremarkable. Reproductive organs: Unremarkable. Bowel: Diverticulosis is seen. A moderate hiatal hernia is seen. Mild fat stranding is seen about the cecum. Lymph nodes Retroperitoneal: Unremarkable. Pelvic: Unremarkable. Mesenteric: Unremarkable. Peritoneum: Normal. Vessels: Atherosclerotic calcifications are seen. Abdominal wall: Unremarkable. Bones: Degenerative changes in the visualized spine. IMPRESSION: 1. Mild fat stranding seen about the cecum, nonspecific but may represent a nonspecific colitis. Num erous diverticula are seen. 2. Splenomegaly and nodular contour of the liver noted. 3. Stable renal cysts. 4. Additional findings as above. ACT 112: Negative or not required by law. Electronically signed by: Pablito Lebron M.D. 05/21/2023 3:52 PM
[2023-05-21] MEDS ORDERED: CYCLOBENZAPRINE HCL 5 MG TAB PO ONE (16:51)
[2023-05-21] MEDS: LIDOCAINE 5% 1 PATCH TD SCH (17:57)
[2023-05-21] MEDS ORDERED: oxyCODONE HCL IR 5 MG TAB (IMMEDIATE RELEASE) PO STA (19:11)
[2023-05-21] MEDS: HEPARIN SOD 5,000 UNIT/0.5 ML VIAL SQ SCH (20:10)
[2023-05-22] MEDS: LEVOTHYROXINE SODIUM 100 MCG TABLET PO SCH (05:45)
[2023-05-22] MEDS: LINACLOTIDE 145 MCG CAPSULE PO SCH (05:45)
[2023-05-22] MEDS: PANTOprazole 40 MG TAB PO SCH (05:45)
[2023-05-22] MEDS: predniSONE 5 MG TAB PO SCH (08:51)
[2023-05-22] MEDS: guaiFENesin 600 MG TABCR PO SCH ×2 (08:52→20:47)
[2023-05-22] MEDS: ADVANCED PROBIOTIC 1250 MG CAPSULE PO SCH (08:52)
[2023-05-22] MEDS: CHOLECALCIFEROL 125 MCG (5,000 UNITS) TAB PO SCH (08:52)
[2023-05-22] MEDS: FERROUS SULFATE 325 MG TAB PO SCH (08:53)
[2023-05-22] MEDS: DORZOLAMIDE/TIMOLOL 22.3/6.8MG/ML 10 ML BTL OP SCH ×2 (08:54→20:47)
[2023-05-22] MEDS: CYANOCOBALAMIN (B-12) 500 MCG TABLET PO SCH (08:54)
[2023-05-22] MEDS: AMOXICILLIN/CLAVULANATE 875 MG TAB PO SCH ×2 (08:55→17:17)
[2023-05-22] MEDS: LIDOCAINE 5% 1 PATCH TD SCH (08:55)
[2023-05-22] MEDS: HEPARIN SOD 5,000 UNIT/0.5 ML VIAL SQ SCH ×2 (08:56→20:47)
[2023-05-22] MEDS: POTASSIUM CHLORIDE 10 MEQ TABCR PO SCH (09:03)
--- NOTE | 2023-05-22 15:41 | Hospitalist Progress Note ---
Date of Service May 22, 2023 Assessment & Plan (1) Cough: (2) RSV (respiratory syncytial virus infection): (3) Fever: Plan: per previous hospitalist notes with addendum: Presented with cough and weakness On antibiotics recently for UTI and respiratory illness Had fever at home Has chronic leukocytosis, likely due chronic myeloproliferative disease Respiratory PCR is + for RSV Lactate is normal Procal is elevated 0.65 Patient did meet SIRS criteria with leukocytosis, tachycardia. Hence possible Sepsis RSV infection XR chest did not show any acute abnormalities However CT PE noted right lower lobe bronchi opacification with small patchy airspace opacification in right lung base Hence Pneumonia Broad spectrum antibiotics: IV vanc and zosyn initially. MRSA swab negat. - stopping vanco blood cultures - negat. 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 Aspiration precautions 05/18 Respiratory status stable Continue present regimen 05/19 Breathing is fine 97% on 2 L Continue Augmentin Chief complaint is weakness, likely secondary to deconditioning from pneumonia PT and OT evaluation in progress 05/20 stable overall continue Mucinex, Augmentin 05/21 Respiratory status stable Continue Augmentin day number 6 out of 7 Monitor closely 05/22 stable on room air last day of Augmentin today (4) Thrombocytopenia: (5) Leukocytosis: (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 She has no pain or symptoms hindering her ADLs. At this point, we can continue with conservative treatment. She may work with physical therapy and Occupational Therapy as tolerated. Symptomatic relief with activity mod ification versus oral/IV analgesics. She should follow-up about 7 to 10 days post discharge for follow-up radiographs of the fracture. Conservative mgt PT/OT Vit D level 36.6- increased vit. D supplement 05/22 given Oxycodone and Flexeril yesterday- pain mostly resolved today History of chronic lymphedema BNP mildly elevated at 410 Reviewed TTE from 02/13 Continue Lasix daily- resume tomorrow DVT ppx: Plt 80k, start heparin SC q12h CODE STATUS: DNR Admission and Anticipated Discharge Date Admission Date: May 11, 2023 Subjective ff up for RSV pneumonia, etc seen resting in bed, comfortable in good spirits states she feels better today pain resolved slept well appetite ok no other new symptoms Review of Systems Review of Systems: all noted and negative except for above Physical Exam Physical Exam: General- oriented x 3, not in distress, speaks in sentences with no effort or accessory muscle use Eyes- anicteric Neck- no JVD Lungs- clear breath sounds bilaterally, no rales/wheezes Heart- normal rate, regular rhythm; no murmurs Abdomen- normal bowel sounds, nondistended, soft, nontender Extremities- no pretibial edema, no calf tenderness Neuro- alert, oriented x 3; no gross focal neurologic deficits Skin- warm & dry Results & Data Results & Data Vital Signs (Past 12 Hours) Vital Signs Temp Pulse Pulse Resp BP BP Pulse Ox 05/22/23 15:25 63 05/22/23 11:33 36.5 C 68 18 97/46 L 92 05/22/23 08:00 63 05/22/23 07:40 36.5 C 68 18 113/52 L 92 05/22/23 04:11 36.3 C L 70 18 151/65 H 91 O2 Del Method 05/22/23 15:25 05/22/23 11:33 Room Air 05/22/23 08:00 05/22/23 07:40 Room Air 05/22/23 04:11 Room Air (3) Fever Fever type: unspecified Qualified Code(s): R50.9 - Fever, unspecified (5) Leukocytosis Leukocytosis type: unspecified Qualified Code(s): D72.829 - Elevated white blood cell count, unspecified
[2023-05-22] MEDS ORDERED: MELATONIN 3 MG TAB PO PRN (23:53)
[2023-05-22] MEDS ORDERED: CYCLOBENZAPRINE HCL 5 MG TAB PO PRN (23:59)
[2023-05-23] MEDS: oxyCODONE HCL IR 5 MG TAB (IMMEDIATE RELEASE) PO PRN (00:38)
[2023-05-23] MEDS: LEVOTHYROXINE SODIUM 100 MCG TABLET PO SCH (05:47)
[2023-05-23] MEDS: LINACLOTIDE 145 MCG CAPSULE PO SCH (05:47)
[2023-05-23] MEDS: PANTOprazole 40 MG TAB PO SCH (05:47)
[2023-05-23] MEDS: predniSONE 5 MG TAB PO SCH (08:36)
[2023-05-23] MEDS: ADVANCED PROBIOTIC 1250 MG CAPSULE PO SCH (08:36)
[2023-05-23] MEDS: FERROUS SULFATE 325 MG TAB PO SCH (08:36)
[2023-05-23] MEDS: DORZOLAMIDE/TIMOLOL 22.3/6.8MG/ML 10 ML BTL OP SCH ×2 (08:37→20:10)
[2023-05-23] MEDS: CHOLECALCIFEROL 125 MCG (5,000 UNITS) TAB PO SCH (08:37)
[2023-05-23] MEDS: AMOXICILLIN/CLAVULANATE 875 MG TAB PO SCH (08:37)
[2023-05-23] MEDS: CYANOCOBALAMIN (B-12) 500 MCG TABLET PO SCH (08:38)
[2023-05-23] MEDS: guaiFENesin 600 MG TABCR PO SCH ×2 (08:38→20:10)
[2023-05-23] MEDS: LIDOCAINE 5% 1 PATCH TD SCH (08:39)
[2023-05-23] MEDS: HEPARIN SOD 5,000 UNIT/0.5 ML VIAL SQ SCH ×2 (08:39→20:19)
[2023-05-23] MEDS: POTASSIUM CHLORIDE 10 MEQ TABCR PO SCH (08:40)
--- NOTE | 2023-05-23 11:57 | Hospitalist Progress Note ---
Date of Service May 23, 2023 Assessment & Plan (1) Cough: (2) RSV (respiratory syncytial virus infection): (3) Fever: Plan: per previous hospitalist notes with addendum: Presented with cough and weakness On antibiotics recently for UTI and respiratory illness Had fever at home Has chronic leukocytosis, likely due chronic myeloproliferative disease Respiratory PCR is + for RSV Patient did meet SIRS criteria with leukocytosis, tachycardia. Hence possible Sepsis However CT PE noted right lower lobe bronchi opacification with small patchy airspace opacification in right lung base Broad spectrum antibiotics: IV vanc and zosyn initially. MRSA swab negat. - stopping vanco blood cultures - negat. 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 She has no pain or symptoms hindering her ADLs. At this point, we can continue with conservative treatment. She may work with physical therapy and Occupational Therapy as tolerated. Symptomatic relief with activity modification versus oral/IV analgesics. She should follow-up about 7 to 10 days post discharge for follow-up radiographs of the fracture. Conservative mgt PT/OT Vit D level 36.6- increased vit. D supplement 05/23 given one dose of Oxycodone and Flexeril on 05/21- pain resolved History of chronic lymphedema BNP mildly elevated at 410 Reviewed TTE from 02/13 usually on Lasix 20mg- on hold for now as patient on the dry side, monitor closely and resume accordingly DVT ppx: Plt 80k, start heparin SC q12h monitor Plt level CODE STATUS: DNR Disposition d/c to SNF when accepted plan of care discussed with patient's daughter Suzy in detail and at length 05/22 all questions answered she is understanding, agreeable, comfortable with the plan of care Admission and Anticipated Discharge Date Admission Date: May 11, 2023 Subjective ff up for RSV, pneumonia, hypoxia, etc seen resting in bed, comfortable on room air states she feels fine overall breathing is ok, no cough back pain resolved feels tired otherwise no other symptoms Review of Systems Review of Systems: all noted and negative except for above Physical Exam Physical Exam: General- oriented x 3, not in distress, speaks in sentences with no effort or accessory muscle use Eyes- anicteric Neck- no JVD Lungs- clear breath sounds BL no rales/wheezing Heart- normal rate, regular rhythm; no murmurs Abdomen- normal bowel sounds, nondistended, soft, no tenderness Extremities- no pretibial edema, no calf tenderness Neuro- alert, oriented x 3; no gross focal neurologic deficits Skin- warm & dry Results & Data Results & Data Vital Signs (Past 12 Hours) Vital Signs Temp Pulse Pulse Resp BP BP Pulse Ox 05/23/23 11:19 36.6 C 72 16 123/59 L 93 05/23/23 09:30 05/23/23 08:07 36.7 C 73 18 146/55 H 95 05/23/23 07:00 72 05/23/23 03:10 36.6 C 69 18 115/45 L 95 05/23/23 01:10 66 05/23/23 00:19 O2 Del Method 05/23/23 11:19 Room Air 05/23/23 09:30 Room Air 05/23/23 08:07 Room Air 05/23/23 07:00 05/23/23 03:10 Room Air 05/23/23 01:10 05/23/23 00:19 Room Air all noted and reviewed including below (3) Fever Fever type: unspecified Qualified Code(s): R50.9 - Fever, unspecified (5) Leukocytosis Leukocytosis type: unspecified Qualified Code(s): D72.829 - Elevated white blood cell count, unspecified
[2023-05-24] MEDS: PANTOprazole 40 MG TAB PO SCH (05:26)
[2023-05-24] MEDS: LEVOTHYROXINE SODIUM 100 MCG TABLET PO SCH (05:26)
[2023-05-24] MEDS: LINACLOTIDE 145 MCG CAPSULE PO SCH (05:26)
[2023-05-24 08:14] LABS: Hematocrit (blood only) 27.5 % (37.0-47.0); Hemoglobin 8.9 g/dl (12.0-16.0); Mean Corpuscular Hemoglobin 37.2 pg (25.0-34.0); Mean Corpuscular Hgb Conc 32.4 g/dL (32.0-36.0); Mean Corpuscular Volume 115.1 fL (80.0-100.0); Mean Platelet Volume 13.2 fL (9.4-12.4); Nucleated RBC # (auto) 0.21 K/uL (0.00-0.12); Nucleated RBC % (auto) 1.4 %; Platelet Count 99 K/uL (130-400); RDW Coefficient of Variation 25.5 % (11.5-14.5); RDW Standard Deviation 108.7 fL (36.4-46.3); Red Blood Count 2.39 M/uL (4.20-5.40); White Blood Count 15.26 K/ul (4.8-10.8)
[2023-05-24] MEDS: LIDOCAINE 5% 1 PATCH TD SCH (08:14)
[2023-05-24] MEDS: HEPARIN SOD 5,000 UNIT/0.5 ML VIAL SQ SCH ×2 (08:15→21:13)
[2023-05-24] MEDS: guaiFENesin 600 MG TABCR PO SCH ×2 (08:15→21:13)
[2023-05-24] MEDS: ADVANCED PROBIOTIC 1250 MG CAPSULE PO SCH (08:15)
[2023-05-24] MEDS: CHOLECALCIFEROL 125 MCG (5,000 UNITS) TAB PO SCH (08:15)
[2023-05-24] MEDS: FERROUS SULFATE 325 MG TAB PO SCH (08:16)
[2023-05-24] MEDS: DORZOLAMIDE/TIMOLOL 22.3/6.8MG/ML 10 ML BTL OP SCH ×2 (08:16→21:14)
[2023-05-24] MEDS: CYANOCOBALAMIN (B-12) 500 MCG TABLET PO SCH (08:16)
[2023-05-24] MEDS: predniSONE 5 MG TAB PO SCH (08:16)
[2023-05-24] MEDS: POTASSIUM CHLORIDE 10 MEQ TABCR PO SCH (08:18)
[2023-05-24 08:32] LABS: BUN Creatinine Ratio 34.7 (10-20); Calcium 9.8 mg/dl (8.6-10.3); Est GFR (African American) 100.8 ml/min
[2023-05-24 09:28] LABS: ALC (manual) 1.68 K/uL (1.2-3.4); ANC (manual) 10.99 K/uL (1.4-6.5); Basophilic Stippling 1+; Basophils # (manual) 0.61 K/uL (0-0.2); Basophils % (manual) 4 %; Blast # (manual) 0.15 K/uL (0-0); Blast Cells % (manual) 1 %; Eosinophils # (manual) 0.61 K/uL (0-0.50); Eosinophils % (manual) 4 %; Lymphocytes # (manual) 1.68 K/uL (1.2-3.4); Lymphocytes % (manual) 11 %; Metamyelocytes # (manual) 0.46 K/uL (0-0); Metamyelocytes % (manual) 3 %; Monocytes # (manual) 0.46 K/uL (0.11-0.59); Monocytes % (manual) 3 %; Myelocytes # (manual) 0.31 K/uL (0-0); Myelocytes % (manual) 2 %; Neutrophils # (manual) 10.99 K/uL (1.40-6.50); Neutrophils % (manual) 72 %; Polychromasia 1+; Stomatocytes 2+
--- NOTE | 2023-05-24 12:51 | Hospitalist Progress Note ---
Date of Service May 24, 2023 Assessment & Plan (1) Cough: (2) RSV (respiratory syncytial virus infection): (3) Fever: (4) Thrombocytopenia: (5) Leukocytosis: (6) Primary myelofibrosis: (7) Hypothyroidism: Plan Ms. 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 #RSV pneumonia #Possible Sepsis 2/2 RSV Respiratory PCR is + for RSV Patient did meet SIRS criteria with leukocytosis, tachycardia. Hence possible Sepsis, however, leukocytosis chronic at baselin Broad spectrum antibiotics: IV vanc and zosyn initially. MRSA swab negative blood cultures - negat. 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 She has no pain or symptoms hindering her ADLs. At this point, we can continue with conservative treatment. She may work with physical therapy and Occupational Therapy as tolerated. Symptomatic relief with activity modification versus oral/IV analgesics. Follow up Op with ortho about 7 to 10 days post discharge for follow-up radiographs of the fracture. Conservative mgt PT/OT Vit D level 36.6- increased vit. D supplement #Chronic constipation -refused linzess 2/2 too many bowel movements, but now with abdominal pain and slight distension with only a smear per nursing -Increased bowel regimen #History of chronic lymphedema BNP elevated at 410 Reviewed TTE from 02/13 usually on Lasix 20mg- on hold for now as patient on the dry side, monitor closely and resume accordingly DVT ppx: Plt 80k, start heparin SC q12h monitor Plt level CODE STATUS: DNR Disposition d/c to SNF when accepted Admission and Anticipated Discharge Date Admission Date: May 11, 2023 Subjective NAEO Reports feeling uncomfortable and tender in abdomen, denies having a sufficient bm recently Physical Exam Respiratory: normal respiratory effort, lungs clear to auscultation Cardiovascular: RRR, no murmur, no edema Gastrointestinal (Abdomen): mildly tender, slightly distended abdomen on exam, firm LLQ Results & Data Results & Data Vital Signs (Past 12 Hours) Vital Signs Temp Pulse Pulse Resp BP BP Pulse Ox 05/24/23 11:32 36.7 C 70 16 133/55 L 94 05/24/23 08:00 05/24/23 07:46 36.7 C 69 16 128/43 L 94 05/24/23 07:00 64 05/24/23 03:09 36.6 C 95 H 18 136/58 L 95 O2 Del Method 05/24/23 11:32 Room Air 05/24/23 08:00 Room Air 05/24/23 07:46 Room Air 05/24/23 07:00 05/24/23 03:09 Room Air Laboratory Results Short CBC 05/24/23 Range/Units 07:47 WBC 15.26 H (4.8-10.8) K/ul Hgb 8.9 L (12.0-16.0) g/dl Hct 27.5 L (37.0-47.0) % Plt Count 99 L (130-400) K/uL BMP 05/24/23 07:47 Sodium 132 L Potassium 4.0 Chloride 99 Carbon Dioxide 30 BUN 17 Creatinine 0.49 L Glucose 82 Calcium 9.8 Medications Administered Home Medications Medication Instructions Recorded Confirmed Last Taken dorzolamide 2 %-timolol 0.5 % (PF) 1 drp OPB BID 05/24/19 05/11/23 05/10/23 eye drops mycophenolate mofetil 500 mg tablet 500 mg PO DAILY 10/29/20 05/11/23 05/10/23 omeprazole 20 mg capsule,delayed 20 mg PO DAILYBB 10/29/20 05/11/23 05/10/23 release prednisone 10 mg tablet 5 mg PO QAM 01/24/21 05/11/23 06/21/21 ferrous sulfate 325 mg (65 mg 325 mg PO QAM 06/22/21 05/11/23 05/10/23 iron) tablet (FeroSul) acetaminophen 500 mg tablet 1,000 mg PO Q6H PRN Pain 09/19/22 05/11/23 05/11/23 07:00 (Tylenol Extra Strength) cholecalciferol (vitamin D3) 25 25 mcg PO DAILY 09/19/22 05/11/23 05/10/23 mcg (1,000 unit) tablet (Vitamin D3) levothyroxine 100 mcg tablet 100 mcg PO DAILYBB 12/25/22 05/11/23 05/11/23 dexamethasone 0.5 mg/5 mL oral 0.5 mg PO BID PRN mouth ulcers 01/28/23 05/11/23 Unknown elixir linaclotide 145 mcg capsule 145 mcg PO DAILYBB 01/28/23 05/11/23 05/10/23 (Linzess) furosemide 20 mg tablet 20 mg PO BID #60 tabs 02/11/23 05/11/23 05/10/23 polyethylene glycol 3350 17 gram 17 g PO DAILY PRN Constipation #30 02/11/23 05/11/23 Unknown oral powder packet (Miralax) ea potassium chloride 10 mEq 10 meq PO DAILY #30 caps 02/11/23 05/11/23 05/10/23 capsule,extended release cyanocobalamin (vitamin B-12) 500 500 mcg PO DAILY 05/11/23 05/11/23 05/10/23 mcg tablet (Vitamin B-12) doxycycline hyclate 100 mg capsule 100 mg PO BID 05/11/23 05/11/23 05/11/23 07:00 prednisone 10 mg tablet 0 mg PO DAILY 05/11/23 05/11/23 05/11/23 30 MG-DAY #1 OF 2 Active Medications Generic Name Dose Route Start Last Admin Trade Name Freq PRN Reason Stop Dose Admin Cyanocobalamin 500 mcg 05/12/23 09:00 05/24/23 08:16 Cyanocobalamin (B-12) 500 Mcg Tablet PO 06/11/23 08:59 500 mcg DAILY ALEXANDRE Administration Dorzolamide/Timolol 1 drops 05/12/23 09:00 05/24/23 08:16 Dorzolamide/Timolol 22.3/6.8mg/Ml 10 Ml Btl OP 06/11/23 08:59 1 drops BID ALEXANDRE Administration Ferrous Sulfate 325 mg 05/12/23 09:00 05/24/23 08:16 Ferrous Sulfate 325 Mg Tab PO 06/11/23 08:59 325 mg QAM ALEXANDRE Administration Furosemide 20 mg 05/11/23 23:24 05/21/23 09:39 Furosemide 20 Mg Tab PO 06/10/23 23:23 20 mg BID17 ALEXANDRE Administration Guaifenesin 1,200 mg 05/11/23 21:00 05/24/23 08:15 Guaifenesin 600 Mg Tabcr PO 06/10/23 20:59 1,200 mg Q12 ALEXANDRE Administration Heparin Sodium (Porcine) 5,000 units 05/21/23 21:00 05/24/23 08:15 Heparin Sod 5,000 Unit/0.5 Ml Vial SQ 06/20/23 20:59 5,000 units Q12 ALEXANDRE Administration Lactobacillus Acidophilus 2 cap 05/13/23 17:30 05/24/23 08:15 Advanced Probiotic 1250 Mg Capsule PO 06/12/23 17:29 2 cap DAILY ALEXANDRE Administration Levothyroxine Sodium 100 mcg 05/12/23 06:30 05/24/23 05:26 Levothyroxine Sodium 100 Mcg Tablet PO 06/11/23 06:29 100 mcg DAILYBB ALEXANDRE Administration Lidocaine 1 patch 05/21/23 17:15 05/24/23 08:14 Lidocaine 5% 1 Patch TD 06/20/23 17:14 1 patch QAM ALEXANDRE Administration Linaclotide 145 mcg 05/12/23 06:30 05/24/23 05:26 Linaclotide 145 Mcg Capsule PO 06/11/23 06:29 145 mcg DAILYBB ALEXANDRE Administration Miscellaneous 1 each 05/21/23 21:00 05/23/23 20:20 Remove Lidoderm Patch N/A 06/20/23 20:59 1 each DAILY@2100 ALEXANDRE Administration Oxycodone HCl 5 mg 05/22/23 23:53 05/23/23 00:38 Oxycodone Hcl Ir 5 Mg Tab (Immediate Release) PO 06/05/23 23:52 5 mg Q4H PRN Administration Pain Pantoprazole Sodium 40 mg 05/12/23 06:30 05/24/23 05:26 Pantoprazole 40 Mg Tab PO 06/11/23 06:29 40 mg DAILYBB ALEXANDRE Administration Potassium Chloride 10 meq 05/12/23 09:00 05/24/23 08:18 Potassium Chloride 10 Meq Tabcr PO 06/11/23 08:59 10 meq DAILY ALEXANDRE Administration Prednisone 5 mg 05/12/23 09:00 05/24/23 08:16 Prednisone 5 Mg Tab PO 06/11/23 08:59 5 mg QAM ALEXANDRE Administration Vitamin D 5,000 units 05/13/23 09:00 05/24/23 08:15 Cholecalciferol 5,000 Units 125 Mcg Tab PO 06/12/23 08:59 5,000 units QAM ALEXANDRE Administration (3) Fever Fever type: unspecified Qualified Code(s): R50.9 - Fever, unspecified (5) Leukocytosis Leukocytosis type: unspecified Qualified Code(s): D72.829 - Elevated white blood cell count, unspecified
[2023-05-24] MEDS ORDERED: bisacodyL 5 MG TABEC PO ONE (13:04)
[2023-05-24] MEDS ORDERED: bisacodyL 10 MG SUPP PR STA (13:04)
[2023-05-24] MEDS ORDERED: LACTATED RINGER'S 250 ML IV ONE (13:05)
[2023-05-25 01:41] LABS: Appearance Urine Cloudy (Clear); Bacteria Urine Automated Negative (Negative); Bilirubin Urine Negative (Negative); Blood Urine Negative (Negative); Cast Urine Automated 0 /lpf (0-5); Color Urine Dark Yellow; Epithelial Cell Urine Auto >30 /lpf (0-5); Glucose Urine UA Negative (Negative); Ketones Urine Trace (Negative); Leukocyte Esterase Urine Trace (Negative); Nitrite Urine Negative (Negative); Protein Urine Negative (Negative); Specific Gravity Urine 1.017 (1.000-1.030); Urobilinogen Urine Positive (Negative)
[2023-05-25 01:59] LABS: Calcium Oxalate Crystals Urine Present (None Prsent); RBC Urine Automated 0-4 /hpf (0-4)
[2023-05-25] MEDS: PANTOprazole 40 MG TAB PO SCH (05:36)
[2023-05-25] MEDS: LEVOTHYROXINE SODIUM 100 MCG TABLET PO SCH (05:36)
[2023-05-25] MEDS: LINACLOTIDE 145 MCG CAPSULE PO SCH (05:36)
[2023-05-25 06:47] LABS: Hematocrit (blood only) 27.4 % (37.0-47.0); Hemoglobin 9.1 g/dl (12.0-16.0); Mean Corpuscular Hemoglobin 37.9 pg (25.0-34.0); Mean Corpuscular Hgb Conc 33.2 g/dL (32.0-36.0); Mean Corpuscular Volume 114.2 fL (80.0-100.0); Mean Platelet Volume 12.7 fL (9.4-12.4); Nucleated RBC # (auto) 0.26 K/uL (0.00-0.12); Nucleated RBC % (auto) 1.5 %; Platelet Count 100 K/uL (130-400); RDW Coefficient of Variation 25.3 % (11.5-14.5); RDW Standard Deviation 106.7 fL (36.4-46.3); White Blood Count 17.07 K/ul (4.8-10.8)
[2023-05-25 07:18] LABS: BUN Creatinine Ratio 38.1 (10-20); Calcium 9.7 mg/dl (8.6-10.3); Creatinine Clr Calc Pharmacy 54.7 ml/min; Est GFR (African American) 106.1 ml/min; Est GFR (Non-African American) 91.5 ml/min; Magnesium 1.9 mg/dl (1.7-2.4); Phosphorus 2.7 mg/dl (2.5-4.9); Potassium 3.8 mmol/L (3.5-5.1)
[2023-05-25] MEDS: guaiFENesin 600 MG TABCR PO SCH (07:37)
[2023-05-25] MEDS: CHOLECALCIFEROL 125 MCG (5,000 UNITS) TAB PO SCH (07:38)
[2023-05-25] MEDS: CYANOCOBALAMIN (B-12) 500 MCG TABLET PO SCH (07:38)
[2023-05-25] MEDS: predniSONE 5 MG TAB PO SCH (07:38)
[2023-05-25] MEDS: DORZOLAMIDE/TIMOLOL 22.3/6.8MG/ML 10 ML BTL OP SCH (07:38)
[2023-05-25] MEDS: FERROUS SULFATE 325 MG TAB PO SCH (07:39)
[2023-05-25] MEDS: ADVANCED PROBIOTIC 1250 MG CAPSULE PO SCH (07:39)
[2023-05-25] MEDS: HEPARIN SOD 5,000 UNIT/0.5 ML VIAL SQ SCH (07:40)
[2023-05-25] MEDS: LIDOCAINE 5% 1 PATCH TD SCH (07:40)
[2023-05-25] MEDS: POTASSIUM CHLORIDE 10 MEQ TABCR PO SCH (07:42)
[2023-05-25] MEDS: oxyCODONE HCL IR 5 MG TAB (IMMEDIATE RELEASE) PO PRN (08:24)
[2023-05-25] MEDS ORDERED: bisacodyL 5 MG TABEC PO ONE (10:36)
[2023-05-25] MEDS ORDERED: bisacodyL 10 MG SUPP PR STA (10:36)
--- NOTE | 2023-05-25 14:37 | Discharge Summary ---
Discharge Summary Date of Service May 25, 2023 Notes For Next Care Provider No further signs of infection noted, optimizing bowel regimen and limiting pain regimen. Patient has history of reporting to daughter "[she] is done." Daughter hopeful that taking patient to rehab will be best. 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 Patient had UTI about 2 weeks ago and completed antibiotics treatment. Developed cough, postnasal drip over a week ago. Cough is mostly dry. Denies sore throat or congestion. Denied any shortness of breath. Reports generalized weakness. Reports appetite is still good. Denied diarrhea, dysuria, frequency or urgency. Did not have fever until today when she had a fever of 101.7. Daughter report that the patient was improving after this being started on antibiotics 2 days ago for a day and then got worse today Principal Dx & Hospital Course #1 = Principal Diagnosis (1) Cough: (2) RSV (respiratory syncytial virus infection): (3) Fever: (4) Thrombocytopenia: (5) Leukocytosis: (6) Primary myelofibrosis: (7) Hypothyroidism: Plan Ms. 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 Patient's course complicated by abdominal pain and constipation. Patient with improved mentation after bowel movement. Daughter eager patient will participate with rehab upon discharge. #RSV pneumonia #Possible Sepsis 2/2 RSV Respiratory PCR is + for RSV Patient did meet SIRS criteria with leukocytosis, tachycardia. Hence possible Sepsis, however, leukocytosis chronic at baselin Broad spectrum antibiotics: IV vanc and zosyn initially. MRSA swab negative blood cultures - negat. in 48 hrs sputum cultx - unrevealing completed 7 day course of Augmentin Continue Antitussives, guaifenesin, flutter valve, IS Supportive care Monitor o2 requirements #General Weakness Chief complaint has been weakness, likely secondary to deconditioning from pneumonia PT and OT recommending rehab Transfer to SNF via daughter. 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 She has no pain or symptoms hindering her ADLs. At this point, we can continue with conservative treatment. She may work with physical therapy and Occupational Therapy as tolerated. Symptomatic relief with activity modification versus oral/IV analgesics. -Follow up Op with ortho about 7 to 10 days post discharge for follow-up radiographs of the fracture. -Tylenol scheduled upon discharge -Oxycodone 2.5mg q12 hours prn, with suppository to help with bowel movements #Chronic constipation -refused linzess 2/2 too many bowel movements, but now with abdominal pain and slight distension with only a smear per nursing -Increased bowel regimen, sent home with linzess and suppository given low dose opioid for pain--can discontinue when opioid stopped #History of chronic lymphedema BNP elevated at 410 Reviewed TTE from 02/13 usually on Lasix 20mg- on hold for now as patient on the dry side, monitor closely and resume accordingly -This remained held and encouraged PO intake, encouraged PCP follow up #Severe protein calorie malnutrition Encouraged PO intake, patient not motivated and has demonstrated lack of motivation for some time per daughter. BMI 15.6 Discussed optimizing as much as possible with supplemental drinks (boost) etc. Discharge Exam Constitutional weak, cachectic patient--responds to loud verbal stimuli Respiratory normal respiratory effort, lungs clear to auscultation Cardiovascular RRR, no murmur, no edema Gastrointestinal (Abdomen) softer on today's examaintion, NTND Musculoskeletal no edema noted, 3/5 strength, moves all extremities equally Neurologic No focal deficits noted Updated Medication List Medication Instructions Recorded Confirmed Type dorzolamide 2 %-timolol 0.5 % (PF) 1 drp OPB BID 05/24/19 05/11/23 History eye drops mycophenolate mofetil 500 mg tablet 500 mg PO DAILY 10/29/20 05/11/23 History omeprazole 20 mg capsule,delayed 20 mg PO DAILYBB 10/29/20 05/11/23 History release prednisone 10 mg tablet 5 mg PO QAM 01/24/21 05/11/23 History ferrous sulfate 325 mg (65 mg 325 mg PO QAM 06/22/21 05/11/23 History iron) tablet (FeroSul) acetaminophen 500 mg tablet 1,000 mg PO Q6H PRN Pain 09/19/22 05/11/23 History (Tylenol Extra Strength) cholecalciferol (vitamin D3) 25 25 mcg PO DAILY 09/19/22 05/11/23 History mcg (1,000 unit) tablet (Vitamin D3) levothyroxine 100 mcg tablet 100 mcg PO DAILYBB 12/25/22 05/11/23 History dexamethasone 0.5 mg/5 mL oral 0.5 mg PO BID PRN mouth ulcers 01/28/23 05/11/23 History elixir linaclotide 145 mcg capsule 145 mcg PO DAILYBB 01/28/23 05/11/23 History (Linzess) furosemide 20 mg tablet 20 mg PO BID #60 tabs 02/11/23 05/11/23 Rx polyethylene glycol 3350 17 gram 17 g PO DAILY PRN Constipation #30 02/11/23 05/11/23 Rx oral powder packet (Miralax) ea potassium chloride 10 mEq 10 meq PO DAILY #30 caps 02/11/23 05/11/23 Rx capsule,extended release cyanocobalamin (vitamin B-12) 500 500 mcg PO DAILY 05/11/23 05/11/23 History mcg tablet (Vitamin B-12) bisacodyl 10 mg rectal suppository 10 mg VA DAILY #12 ea 05/25/23 Rx cyclobenzaprine 5 mg tablet 5 mg PO TID PRN muscle spasm #15 05/25/23 Rx tabs oxycodone 5 mg tablet 2.5 mg (1/2 x 5 mg) PO Q12H PRN 05/25/23 Rx pain #14 tabs Hospital Stay Data Consultations 05/11/23 19:02 ED Decision to Admit Stat 05/12/23 09:04 Consult Orthopedic Spine Surgery Routine Diagnostic Imagining Performed 05/11/23 17:07 CT abd pelvis IV con only Stat CT angio chest PE protocol Stat 05/21/23 13:59 CT Abdomen and Pelvis [CT abd pelvis wo con] Stat Pending Results Patient Have Any Pending Studies at Discharge: No Discharge Instructions Given to Patient (Per Discharging Provider) You were admitted due to worsening weakness and found to have RSV pneumonia. You were treated with antibiotics for a 7 day course for pneumonia. You no longer require quarantine for RSV. You were also noted to have a subacute compression fracture of your T-# (thoracic spine). Orthopedics evaluated you and recommended follow up in 7-10 days after discharge for repeat radiographs and evaluation. Please continue a good bowel regimen as you will be sent home with a short course of Oxycodone 2.5mg to take twice daily. This medication can slow the bowels notably. You were given a prescription for bisacodyl suppository to aid in bowel movements. Please hold your Lasix (Furosemide) and Potassium supplement until you follow up with your PCP to discuss resumption. This is due to your notably poor intake after being sick, and you should reintroduce when you are able to sustain adequate hydration. Please take extreme precautions to avoid falls and to use safety equipment while walking. Total Time Total Time Spent Total Time Spent (In Minutes): 45
[2023-05-26] MEDS ORDERED: CHOLECALCIFEROL 125 MCG (5,000 UNITS) TAB PO SCH (09:00)
== END 2023-05-25 13:55 | DRG 871 ==
LOC: ED 15:30 → EDINP 18:58 → SUATTDRO 18:58 → EDINP 23:25 → 2W 05-12 12:15